=== PATIENT | female | born 1970 | race American Indian/Alaskan Native ===

== ENCOUNTER → 2020-04-27 08:35 | Outpatient (BNVA) | payer MEDICAID, SELFPAY | PROVIDERS: PCP Student in an Organized Health Care Education/Training Program; Referring Provider Student in an Organized Health Care Education/Training Program; Visit Provider Internal Medicine Gastroenterology | DX: K21.00 Gastro-esophageal reflux disease with esophagitis, without bleeding (principal); R13.14 Dysphagia, pharyngoesophageal phase; R14.0 Abdominal distension (gaseous); D64.9 Anemia, unspecified; Z79.899 Other long term (current) drug therapy; Z87.19 Personal history of other diseases of the digestive system | CPT/HCPCS: 99212 ==

== ENCOUNTER 2020-05-02 05:32 | Outpatient (REF) | payer MEDICAID, SELFPAY ==
--- NOTE | 2020-05-02 07:39 | FL_ITS ---
EXAMINATION: XR FLUOROSCOPY WITH IMAGES CLINICAL INFORMATION: Spondylosis without myelopathy or radiculopathy COMPARISON: 09/21/2019 TECHNIQUE: Fluoroscopy performed by Dr. Sukhi Soriano. Fluoroscopy time: 0.3 minutes DAP: 15 Gycm2 Images: 6 FINDINGS: Radiopaque needle with multiple injection sites on the right and left at the lower lumbar spine with extension of contrast seen. FL/FL guidance in treatment room IMPRESSION: Fluoroscopic guidance for bilateral lumbar spinal injection. Please refer to procedural report for further information.
== END 2020-05-02 05:33 | disposition home or self-care (01) ==
LOC: HO.RADIR 05:32
PROVIDERS: Visit Provider Anesthesiology
DX: M47.816 Spondylosis without myelopathy or radiculopathy, lumbar region (principal)
CPT/HCPCS: 64493; 64494; J3300; Q9967

== ENCOUNTER → 2020-06-05 14:06 | Outpatient (BNVA) | payer MEDICAID, SELFPAY | PROVIDERS: PCP Student in an Organized Health Care Education/Training Program; Referring Provider Student in an Organized Health Care Education/Training Program; Visit Provider Anesthesiology | DX: Z76.89 Persons encountering health services in other specified circumstances (principal) ==

== ENCOUNTER → 2020-06-28 16:17 | Outpatient (BNVA) | payer MEDICAID, SELFPAY | PROVIDERS: PCP Student in an Organized Health Care Education/Training Program; Visit Provider Anesthesiology | DX: M47.816 Spondylosis without myelopathy or radiculopathy, lumbar region (principal); M17.0 Bilateral primary osteoarthritis of knee | CPT/HCPCS: 99212 ==

== ENCOUNTER 2020-08-08 06:59 | Outpatient (REF) | payer MEDICAID, SELFPAY ==
--- NOTE | ~2020-08-08 | FL_ITS ---
EXAMINATION: XR FLUOROSCOPY WITH IMAGES CLINICAL INFORMATION: M47.816 - Spondylosis without myelopathy or radiculopathy COMPARISON: MR lumbar spine 10/18/2019 TECHNIQUE: Fluoroscopy performed by Nery Pepe NP. Fluoroscopy time: 0.8 minutes DAP: 6.27 Gycm2 Images: 6 FINDINGS: There are spinal needles overlying the outer aspects of the bilateral L3, L4, L5 neural foramen. There is contrast seen in the nerve sheaths. No vascular communication. FL/FL guidance in treatment room IMPRESSION: Fluoroscopy for pain management procedures.
== END 2020-08-08 07:00 | disposition home or self-care (01) ==
LOC: HO.RADIR 06:59
PROVIDERS: Visit Provider Anesthesiology
DX: M47.816 Spondylosis without myelopathy or radiculopathy, lumbar region (principal); M17.0 Bilateral primary osteoarthritis of knee
CPT/HCPCS: 64493; 64494; J3300; Q9967

== ENCOUNTER 2020-12-05 06:27 | Outpatient (REF) | payer MEDICAID, SELFPAY ==
--- NOTE | ~2020-12-05 | FL_ITS ---
EXAMINATION: XR FLUOROSCOPY WITH IMAGES CLINICAL INFORMATION: Spondylosis without myelopathy or radiculopathy. COMPARISON: Similar study 08/08/2020 TECHNIQUE: Fluoroscopy performed by Nery Pepe. Fluoroscopy time: 0.6 minutes DAP: 13.1 Gycm2 Images: 6 FINDINGS: There are bilateral needles positioned adjacent to the pedicles involving S1, L5 and L4 vertebrae with contrast opacifying the adjacent soft tissues. FL/FL guidance in treatment room IMPRESSION: Fluoroscopy guidance was provided by Nery Pepe during spinal procedure.
== END 2020-12-05 06:28 | disposition home or self-care (01) ==
LOC: HO.RADIR 06:27
PROVIDERS: Visit Provider Anesthesiology
DX: M47.816 Spondylosis without myelopathy or radiculopathy, lumbar region (principal); M17.10 Unilateral primary osteoarthritis, unspecified knee
CPT/HCPCS: 64493; 64494; 64495; J3300; Q9967

== ENCOUNTER → 2020-12-12 13:29 | Outpatient (BNVA) | payer MEDICAID, SELFPAY | PROVIDERS: PCP Student in an Organized Health Care Education/Training Program; Visit Provider Surgery Vascular Surgery | DX: I65.23 Occlusion and stenosis of bilateral carotid arteries (principal); R51.9 Headache, unspecified | CPT/HCPCS: 99202 ==

== ENCOUNTER 2020-12-21 12:14 | Outpatient (REF) | payer MEDICAID, SELFPAY ==
[2020-12-21 14:06] LABS: MANUAL DIFF FLAG NO
[2020-12-21 14:11] LABS: Basophils Percent Auto 0.3 % (0-2); Eosinophils Absolute Auto 0.2 X10*3/uL (0.0-0.4); Hematocrit 35.8 % (37-47); Hemoglobin 10.7 g/dl (12.0-16.0); Imm Gran Abs Auto 0.03 X10*3/uL (0.00-0.03); Imm Gran Pct Auto 0.3 % (0.0-0.4); Lymphocytes Absolute Auto 3.1 X10*3/uL (1.2-4.9); Mean Corpuscular HGB Conc 29.9 g/dl (31.0-35.0); Mean Corpuscular Hemoglobin 25.1 pg (27.0-33.0); Mean Platelet Volume 10.3 fL (9.4-12.3); Monocytes Absolute Auto 0.7 X10*3/uL (0.1-1.2); Monocytes Percent Auto 5.8 % (2-11); Neutrophils Absolute Auto 7.8 X10*3/uL (2.0-8.3); Neutrophils Percent Auto 65.6 % (45-73); Platelet Count 491 X10*3/uL (160-400); Red Blood Count 4.26 X10*6/uL (4.20-5.50); Red Cell Distribution Width 19.3 % (11.0-16.0); White Blood Count 11.8 X10*3/uL (4.8-10.8)
[2020-12-21 14:39] LABS: Alanine Aminotransferase 12 U/L (0-31); Albumin Level 4.3 g/dL (3.5-5.0); Alkaline Phosphatase 109 U/L (39-117); Anion Gap 14 (12-20); Aspartate Amino Transferase 13 U/L (5-31); Bilirubin Total 0.2 mg/dL (0.0-1.0); Blood Urea Nitrogen 29 mg/dL (9-16); C Reactive Protein 1.03 mg/dL (< or = 0.50); Carbon Dioxide 28 mmol/L (22-29); Chloride 104 mmol/L (96-108); Estimated Glomerular Filt Rate > 60; Glucose Random 131 mg/dL (60-115); Potassium 4.7 mmol/L (3.3-5.1); Sodium 141 mmol/L (135-145); Total Protein 7.5 g/dL (6.5-8.0)
[2020-12-21 14:57] LABS: Erythrocyte Sedimentation Rate 27 MM/HR (0-20)
[2020-12-21 16:09] LABS: Rheumatoid Factor < 15.0 IU/mL (<15.0)
[2020-12-22 08:27] LABS: HBS Num1 45.83 mIU/mL (0-7.99); HBsAGNum1 0.26 S/CO (0.00-0.99); Hepatitis A Antibody IgM 0.17 Index (0-0.79); Hepatitis B Surface Antigen Negative (Negative); ~HepC Num1 0.16 S/CO (0.00-0.79); ~Hepatitis A Antibody IgM Nonreactive (Nonreactive); ~Hepatitis B Surface Antibody REACTIVE (Nonreactive); ~Hepatitis C Antibody Nonreactive (Nonreactive)
[2020-12-22 09:07] LABS: HBc Num1 0.13 S/CO (0.00-0.79); Hepatitis B Core Antibody Nonreactive (Nonreactive)
[2020-12-23 14:42] LABS: Cardiolipin IgG Ab <2.0 GPL-U/mL; Cardiolipin IgM Ab <2.0 MPL-U/mL
[2020-12-23 17:32] LABS: Beta-2 Microglobulin, Serum 2.05 mg/L (< OR = 2.51)
[2020-12-24 16:22] LABS: TS Negative Control Passed; TS Panel A 1; TS Panel B 2; TS Positive Control Passed; TSpotTB Negative (SeeBelow)
[2020-12-24 21:57] LABS: Cyclic Citrullinated Peptide <16 UNITS
[2020-12-25 13:12] LABS: PTT (LAC) Screen 30 sec (< OR = 40)
== END 2020-12-21 12:15 | disposition home or self-care (01) ==
LOC: HO.LAB 12:14
PROVIDERS: PCP Student in an Organized Health Care Education/Training Program; Visit Provider Student in an Organized Health Care Education/Training Program
DX: Z01.84 Encounter for antibody response examination (principal); Z11.59 Encounter for screening for other viral diseases; I65.23 Occlusion and stenosis of bilateral carotid arteries; R51.9 Headache, unspecified
CPT/HCPCS: 36415; 80053; 82232; 85025; 85597; 85613; 85652; 85730; 86140; 86147; 86200; 86431; 86481; 86704; 86706; 86709; 86803; 87340; 99202

== ENCOUNTER 2021-01-01 10:15 | Outpatient (REF) | payer MEDICAID, SELFPAY ==
[2021-01-01 12:11] LABS: Blood Urea Nitrogen 34 mg/dL (9-16); Estimated Glomerular Filt Rate > 60; Rheumatoid Factor 19.9 IU/mL (<15.0)
[2021-01-01 12:37] LABS: Syphilis Screen Nonreactive (Nonreactive)
[2021-01-01 12:42] LABS: HIV AB/AG Nonreactive (Nonreactive); HIV Num 1 0.07 S/CO (0.00-0.99)
[2021-01-01 14:00] LABS: Erythrocyte Sedimentation Rate 20 MM/HR (0-20)
[2021-01-02 11:55] LABS: Lyme Abs Screen <0.90 index
[2021-01-02 20:41] LABS: Anti Nuclear Antibody Screen NEGATIVE (NEGATIVE)
[2021-01-04 20:01] LABS: IgA 210 mg/dL (47-310); IgG 1101 mg/dL (600-1640); IgM 126 mg/dL (50-300)
== END 2021-01-01 10:16 | disposition home or self-care (01) ==
LOC: HO.LAB 10:15
PROVIDERS: PCP Student in an Organized Health Care Education/Training Program; Visit Provider Psychiatry & Neurology Neurology
DX: G93.40 Encephalopathy, unspecified (principal)
CPT/HCPCS: 36415; 82565; 82784; 84520; 85652; 86038; 86039; 86334; 86431; 86617; 86618; 86780; 87389

== ENCOUNTER 2021-01-02 12:44 | Outpatient (REF) | payer MEDICAID, SELFPAY ==
--- NOTE | ~2021-01-02 | US_ITS ---
EXAMINATION: US EXTRACRANIAL CAROTID DUPLEX, BILATERAL CLINICAL INFORMATION: This is a 50-year-old female with carotid stenosis/occlusion of bilateral carotid arteries. COMPARISON: None TECHNIQUE: Real-time ultrasound and Doppler techniques (integrating B-mode 2-D vascular images, Doppler spectral analysis and color-flow Doppler imaging) were utilized to interrogate the extracranial carotid arteries, the vertebral arteries and proximal subclavian arteries bilaterally. The degree of stenosis is determined by criteria similar to NASCET. FINDINGS: Right Side: 1. There is no atherosclerotic plaque seen in the bifurcation/proximal ICA region. 2. The common carotid artery PSV proximally is 91 cm/s and distally 84 cm/s. 3. The proximal internal carotid artery velocities are 67 cm/s systolic and 14 cm/s diastolic. 4. The proximal external carotid artery PSV is 79 cm/s. 5. The vertebral artery shows antegrade flow. 6. The subclavian artery waveforms are normal. Left Side: 1. There is no atherosclerotic plaque seen in the bifurcation/proximal ICA region. 2. The common carotid artery PSV proximally is 103 cm/s and distally 82 cm/s. 3. The proximal internal carotid artery velocities are 75 cm/s systolic and 23 cm/s diastolic. 4. The proximal external carotid artery PSV is 109 cm/s. 5. The vertebral artery shows antegrade flow. 6. The subclavian artery waveforms are normal. US/US carotid duplex BI IMPRESSION: 1. RIGHT: Normal right internal carotid artery without atherosclerotic plaque or hemodynamically significant stenosis. 2. LEFT: Normal left internal carotid artery without atherosclerotic plaque or hemodynamically significant stenosis. 3. An arrhythmia was demonstrated during the Doppler portion of the examination. This would be best evaluated with an EKG.
== END 2021-01-02 12:45 | disposition home or self-care (01) ==
LOC: HO.US 12:44
PROVIDERS: PCP Student in an Organized Health Care Education/Training Program; Visit Provider Surgery Vascular Surgery
DX: I63.233 Cerebral infarction due to unspecified occlusion or stenosis of bilateral carotid arteries (principal)
CPT/HCPCS: 70450; 93880; 96372; 96374; 96375; 99283; 99284; J2060; J2270; J3030

== ENCOUNTER 2021-01-02 21:47 | Emergency (ER) | payer MEDICAID, SELFPAY ==
--- NOTE | ~2021-01-02 | CT_ITS ---
EXAMINATION: CT HEAD WITHOUT CONTRAST CLINICAL INFORMATION: Headaches. On Eliquis COMPARISON: CT head March 13, 2011 TECHNIQUE: Contiguous axial imaging was performed from the skull base to vertex without intravenous administration of contrast. Coronal and sagittal reformatted images are performed at the CT scanner This CT examination was performed using dose optimization techniques as appropriate, variously including the following: *Automated exposure control *Adjustment of mA and/or kV according to patient size (this includes techniques or standardized protocols for targeted exams where dose is matched to indication/reason for exam; i.e. extremities or head) *Use of iterative reconstruction technique DLP: 955 mGy-cm FINDINGS: There is no evidence of acute intracranial hemorrhage or territorial infarction. No abnormal mass effect or midline shift is seen. Yarbrough to white matter differentiation is well preserved. No extra-axial fluid collections are identified. The ventricles are normal in size. There is no abnormal attenuation within the brain parenchyma. The osseous structures and soft tissues are normal. The mastoid air cells and visualized portions of the paranasal sinuses are well aerated. CT/CT head/brain wo con IMPRESSION: No acute intracranial pathology.
[2021-01-02 21:59] VITALS: BP 146/86; PULSE 70; O2SAT 99
--- NOTE | 2021-01-02 22:01 | ED.HA ---
HPI - Headache General Chief Complaint: Headache Stated Complaint: STROKE ALERT Time Seen by Provider: 01/02/21 21:49 Source: patient Mode of arrival: EMS History of Present Illness HPI Narrative: Patient with chronic headache since October 2019 after COVID infection on Eliquis for? PE complaining of headache getting worse with light sensitivity no nausea no vomiting no diarrhea no focal deficits no head injury Related Data Home Medications Medication Instructions Recorded Confirmed albuterol sulfate 90 mcg/actuation 2 puff INHALATION Q6H PRN 04/27/20 12/21/20 aerosol inhaler cetirizine 10 mg tablet 10 mg PO DAILY 04/27/20 12/21/20 docusate sodium 100 mg capsule 100 mg PO DAILY 04/27/20 12/21/20 duloxetine 30 mg capsule,delayed 30 mg PO DAILY 04/27/20 12/21/20 release esomeprazole magnesium 40 mg 40 mg PO DAILY 04/27/20 12/21/20 capsule,delayed release metoprolol tartrate 50 mg tablet 50 mg PO DAILY 04/27/20 12/21/20 montelukast 10 mg tablet 10 mg PO DAILY 04/27/20 12/21/20 topiramate 25 mg tablet 25 mg PO DAILY 04/27/20 12/21/20 clonidine HCl 0.1 mg tablet 0.1 mg PO BID 06/05/20 12/21/20 apixaban 5 mg tablet 5 mg PO BID 06/28/20 12/21/20 atorvastatin 40 mg tablet 40 mg PO BEDTIME 06/28/20 12/21/20 losartan 100 mg tablet 100 mg PO DAILY 06/28/20 12/21/20 Previous Rx's Medication Instructions Recorded alrsjplpzc-efxjxgwnfuwyj-hecy 1 cap PO Q6H PRN #20 cap 01/03/21 [Fioricet] Allergies Allergy/AdvReac Type Severity Reaction Status Date / Time aspirin AdvReac Mild bleeding Verified 12/21/20 12:25 Review of Systems Review of Systems: Yes all other systems are reviewed and are negative PMFSH Past Medical History Medical History Bleeding disorder History of gastric ulcer Lab test positive for detection of COVID-19 virus (~11/2019) Left inguinal hernia (~2013) Osteoarthritis of knees, bilateral Surgical History H/O umbilical hernia repair (07/25/06) Hx of endoscopy S/P partial hysterectomy (11/10/18) Family History Family History Father Hx of diabetes insipidus Mother No problems noted. Social History Social History Alcohol intake: never Patient Tobacco Use Status: Never used Tobacco e-Cigarette/Vaping Use: Never Used Advance Directives: No Patient : No Physical Exam Vital Signs: Vital Signs: Last Vital Signs Temp 98.5 F 01/02/21 22:10 Pulse 66 01/02/21 22:10 Resp 22 H 01/02/21 22:10 BP 196/98 H 01/02/21 22:54 Pulse Ox 97 01/02/21 22:10 Body Mass Index 45.8 Const: Other: Photosensitive General: well developed and anxious Orientation/consciousness: patient oriented x3 HENMT: Head: Yes normocephalic Ears: hearing grossly normal bilaterally Eyes: General: appearance normal, both eyes and all related structures Neck: Neck: Yes normal visual inspection, Yes no lymphadenopathy, Yes no meningeal signs and No tender Resp: Effort & Inspection: normal respiratory effort Auscultation: clear to auscultation bilaterally Cardio: Palpation: normal PMI Rate: regular rate Rhythm: regular rhythm Heart sounds: S1 normal heart sound present and S2 normal heart sound present Peripheral pulses: Peripheral pulses 2+ throughout GI: Inspection: Yes normal to inspection Palpation (GI): Soft to palpation and nontender Auscultation: normal bowel sounds Neuro: General: patient oriented x3, tone normal, moves all extremities, Normal light touch and pain sensation, no meningeal signs, no focal motor deficits and CN's II-XI intact bilaterally Extrem: General: Yes normal to inspection and Yes full ROM MDM - Headache MDM Narrative Medical decision making narrative: Patient with chronic headache been followed with automation qa analyst, PCP, neurologist poor response to Imitrex will give her prescription for Fioricet advised to follow-up with neurologist patient's CT scan is negative for any acute bleed Discharge Plan Discharge Clinical Impression: Headache Qualifiers: Headache type: cluster Headache chronicity pattern: chronic headache Intractability: intractable Qualified Code(s): G44.021 - Chronic cluster headache, intractable Patient Disposition: Home, Self-Care Instructions: Acute Headache (ED) Additional Instructions: Take pain medication as prescribed and follow with neurologistt Prescriptions: New wobwlbuygr-zahkwwtrydxli-xjsj [Fioricet] 50-300-40 mg capsule 1 cap PO Q6H PRN (Reason: pain) Qty: 20 RF: 0 No Action clonidine HCl 0.1 mg tablet 0.1 mg PO BID RF: 0 topiramate [Topamax] 25 mg tablet 25 mg PO DAILY RF: 0 albuterol sulfate [ProAir HFA] 90 mcg/actuation HFA aerosol inhaler 2 puff inhalation Q6H PRNRF: 0 cetirizine 10 mg tablet 10 mg PO DAILY RF: 0 docusate sodium [DOK] 100 mg capsule 100 mg PO DAILY RF: 0 duloxetine 30 mg capsule,delayed release(DR/EC) 30 mg PO DAILY RF: 0 montelukast 10 mg tablet 10 mg PO DAILY RF: 0 esomeprazole magnesium 40 mg capsule,delayed release(DR/EC) 40 mg PO DAILY RF: 0 metoprolol tartrate 50 mg tablet 50 mg PO DAILY RF: 0 atorvastatin 40 mg tablet 40 mg PO BEDTIME RF: 0 Eliquis 5 mg tablet 5 mg PO BID RF: 0 losartan 100 mg tablet 100 mg PO DAILY RF: 0
[2021-01-02 22:10] VITALS: BP 198/86; PULSE 66; RESP 22; TEMP 36.9; O2SAT 97; BMI 45.8
[2021-01-02 22:54] VITALS: BP 196/98
[2021-01-03] MEDS: LORazepam 2 MG/ML VIAL IM (00:10)
[2021-01-03] MEDS: Morphine Sulfate 10 MG/ML CARTRIDGE IM (02:06)
== END 2021-01-03 05:06 | disposition home or self-care (01) ==
PROVIDERS: Emergency Provider Internal Medicine; PCP Student in an Organized Health Care Education/Training Program
DX: G44.021 Chronic cluster headache, intractable (principal); Z79.01 Long term (current) use of anticoagulants; Z79.899 Other long term (current) drug therapy
CPT/HCPCS: 70450; 96372; 96374; 96375; 99283; 99284; J2060; J2270; J3030

== ENCOUNTER 2021-01-08 13:47 | Outpatient (REF) | payer MEDICAID, SELFPAY ==
--- NOTE | ~2021-01-08 | MR_ITS ---
EXAMINATION: MR BRAIN WITHOUT AND WITH CONTRAST CLINICAL INFORMATION: Encephalopathy. White matter changes. Headaches. COMPARISON: CT head 01/02/2021. TECHNIQUE: Multiplanar, multisequence MRI of the brain was obtained before and after the intravenous administration of 10 mL Gadavist. FINDINGS: Mild, central T2 hyperintensity is present within the ventral naila. Findings are visualized to best advantage on axial T2 FSE images. A minimal number of supratentorial scattered juxtacortical and periventricular white matter punctate T2 hyperintensities are identified and are of uncertain clinical significance as similar findings are frequently encountered asymptomatic finding. No intracranial hemorrhage, tumors or acute infarcts are visualized. Mild diffuse commensurate prominence of the ventricles and sulci is noted. Susceptibility weighted images reveal no evidence of acute or chronic hemorrhage within the brain parenchyma. Normal flow-related signal intensity is visualized in the major intracranial vessels and dural sinuses. Orbits and globes are normal in appearance. The craniocervical junction and cerebellar tonsils are normal in configuration. No suspicious marrow abnormalities are noted. Mild mucosal thickening and/or mucosal retention cysts are noted within the left maxillary sinus. No mastoid effusions are identified. MR/MR head/brain wo/w con IMPRESSION: 1. Borderline signal abnormality within the central naila. In the correct clinical setting, findings could represent osmotic demyelination syndrome which may occur in the setting of rapid correction of hyponatremia. Alternatively, findings could represent mild chronic small vessel ischemic changes. This result was discussed with Kristy Allred M.D. by telephone at 01/11/2021 2:29 PM and it was ascertained that the content and urgency of the report was understood at the time of direct communication.
== END 2021-01-08 13:48 | disposition home or self-care (01) ==
LOC: HO.MRI 13:47
PROVIDERS: PCP Student in an Organized Health Care Education/Training Program; Visit Provider Psychiatry & Neurology Neurology
DX: G93.40 Encephalopathy, unspecified (principal); G93.49 Other encephalopathy
CPT/HCPCS: 70553; A9585

== ENCOUNTER → 2021-01-11 12:40 | Outpatient (BNVA) | payer MEDICAID, SELFPAY | PROVIDERS: PCP Student in an Organized Health Care Education/Training Program; Visit Provider Surgery Vascular Surgery | DX: R51.9 Headache, unspecified (principal) | CPT/HCPCS: 99212 ==

== ENCOUNTER 2021-01-17 09:26 | Outpatient (REF) | payer MEDICAID, SELFPAY ==
--- NOTE | ~2021-01-17 | US_ITS ---
EXAMINATION: US SOFT TISSUE NECK CLINICAL INFORMATION: Headache COMPARISON: None TECHNIQUE: Doppler, color and linder-scale imaging of the bilateral temporal arteries including waveform spectral analysis. FINDINGS: There are increased peak systolic velocities in the right temporal artery. The proximal common temporal artery peak systolic velocity and end-diastolic velocity measure 108 and 18 cm/s, mid 133 cm/s and 41 cm/s and distal 117 and 25 cm/s. The parietal branch of the temporal artery and end-diastolic velocities measure 117 and 29 cm/s. The frontal branch is not visualized. No halo sign is seen. The left common temporal artery peak systolic and end-diastolic velocities measure 29 and 43 cm/s proximally, 94 and 21 cm/s in the mid portion and 58 and 15 cm/s distally. Parietal branch systolic and end-diastolic velocities measure 86 and 18 cm/s and frontal branch measures 70 and 13 cm/s. No halo sign is seen. US/US soft tiss head and/or neck IMPRESSION: No halo sign is seen. This is an abnormal exam with increased peak systolic and end-diastolic velocities of the right temporal artery compared to the left.
== END 2021-01-17 09:27 | disposition home or self-care (01) ==
LOC: HO.US 09:26
PROVIDERS: PCP Student in an Organized Health Care Education/Training Program; Visit Provider Student in an Organized Health Care Education/Training Program
DX: I65.23 Occlusion and stenosis of bilateral carotid arteries (principal); M17.0 Bilateral primary osteoarthritis of knee; M47.816 Spondylosis without myelopathy or radiculopathy, lumbar region
CPT/HCPCS: 76536; 99212

== ENCOUNTER 2021-01-24 08:01 | Day surgery (SDC) | payer MEDICAID, SELFPAY ==
[2021-01-24] VITALS (7 sets, daily range): BP systolic 129–150; BP diastolic 69–90; PULSE 68–82; RESP 16–18; TEMP 36.6–37.1; O2SAT 97–99; BMI 45.4
--- NOTE | ~2021-01-24 | FL_ITS ---
EXAMINATION: XR LUMBAR PUNCTURE CLINICAL INFORMATION: Encephalopathy. COMPARISON: None, TECHNIQUE: Following explaining fluoroscopy-guided lumbar puncture procedure, benefits and risks, a written consent was obtained. Patient was placed prone on fluoroscopy table and low back area was cleaned and draped in the usual sterile manner. 1% lidocaine was injected at puncture site. A 20-gauge 6-inch needle was then advanced from the skin in the left paramidline location intrathecally at the L4-L5 disc level. Blood-tinged CSF was collected in 2 test tubes. The CSF flow was very slow. Only 4 mL of fluid could be collected. No CSF pressure was obtained due to slow flow. FINDINGS: L4-L5 lumbar puncture performed with fluoroscopy with no opening CSF pressure obtained due to slow flow. Approximately 4 mL of pinkish CSF fluid collected and sent to lab. FLUOROSCOPY TIME: 2.9 minutes. DOSE AREA PRODUCT: 43 x 0.105 uGy-m2 (microgray-meter squared). FL/FL guided lumbar puncture LP IMPRESSION: Difficult but successful fluoroscopy-guided lumbar puncture performed without immediate complications.
[2021-01-24 08:52] LABS: MANUAL DIFF FLAG NO
[2021-01-24 08:56] LABS: Basophils Percent Auto 0.2 % (0-2); Eosinophils Absolute Auto 0.1 X10*3/uL (0.0-0.4); Eosinophils Percent Auto 0.7 % (0-4); Hematocrit 36.4 % (37-47); Imm Gran Abs Auto 0.04 X10*3/uL (0.00-0.03); Imm Gran Pct Auto 0.3 % (0.0-0.4); Lymphocytes Absolute Auto 3.2 X10*3/uL (1.2-4.9); Lymphocytes Percent Auto 27.7 % (20-40); Mean Corpuscular HGB Conc 30.2 g/dl (31.0-35.0); Mean Corpuscular Hemoglobin 25.8 pg (27.0-33.0); Mean Corpuscular Volume 85.2 fL (80-98); Monocytes Absolute Auto 0.8 X10*3/uL (0.1-1.2); Monocytes Percent Auto 7.1 % (2-11); Neutrophils Absolute Auto 7.4 X10*3/uL (2.0-8.3); Platelet Count 370 X10*3/uL (160-400); Red Blood Count 4.27 X10*6/uL (4.20-5.50); Red Cell Distribution Width 18.6 % (11.0-16.0); White Blood Count 11.6 X10*3/uL (4.8-10.8)
[2021-01-24 09:03] LABS: INTERNATIONAL NORM RATIO 1.1 (0.9-1.1); Prothrombin Time 12.3 SEC (9.9-13.0)
[2021-01-24 09:05] LABS: Partial Thromboplastin Time 30.5 SEC (24.1-38.0)
[2021-01-24 13:48] LABS: CSF Appearance Bloody; CSF Tube # 1
[2021-01-24 14:11] LABS: Oligoclonal Serum Yes
[2021-01-24 14:11] LABS: Glucose CSF 73 mg/dL
[2021-01-24 14:15] LABS: Appearance CSF BLOODY
[2021-01-24 14:16] LABS: CSF Tube # 2; Color CSF RED
[2021-01-24 14:17] LABS: Lymphocytes CSF 10 %; Neutrophils CSF 90 %; Red Blood Cell CSF 97000 MM*3; White Blood Cell CSF 100 MM*3
[2021-01-24 14:35] LABS: Total Protein CSF 389.8 mg/dL (15-45)
[2021-01-24] MEDS: Acetaminophen 325 MG TABLET 650 MG PO (15:07)
[2021-01-24] MEDS: oxyCODONE HCl Immed Release 5 MG TABLET PO (15:07)
[2021-01-27 09:26] LABS: Albumin 3.6 g/dL (3.5-5.2); IgG 1040 mg/dL (600-1640); IgG Synthesis Rate 125.6 mg/24 h (-9.9-3.3); IgG, CSF 54.2 mg/dL (0.8-7.7)
== END 2021-01-24 15:26 | disposition home or self-care (01) ==
PROVIDERS: Psychiatry & Neurology Neurology; PCP Student in an Organized Health Care Education/Training Program; Visit Provider Radiology Diagnostic Radiology
PROC: 009U3ZZ Drainage of Spinal Canal, Percutaneous Approach (ICD-10-PCS; CPT 62270; principal; 2021-01-24 11:00)
DX: G93.40 Encephalopathy, unspecified (principal); G43.909 Migraine, unspecified, not intractable, without status migrainosus; E66.9 Obesity, unspecified; F41.9 Anxiety disorder, unspecified; R20.0 Anesthesia of skin
CPT/HCPCS: 36415; 62328; 82042; 82945; 83916; 84157; 85025; 85610; 85730; 87015; 87070; 87205; 89051

== ENCOUNTER 2021-01-31 20:24 | Emergency (ER) | payer MEDICAID, SELFPAY ==
--- NOTE | ~2021-01-31 | XR_ITS ---
EXAMINATION: XR CHEST CLINICAL INFORMATION: Fever. Chest and back pain. COMPARISON: 11/15/2016 TECHNIQUE: 2 views of the chest were obtained. FINDINGS: The lungs are well expanded. There is no focal consolidation, edema, or effusion. No pneumothorax. The cardiomediastinal silhouette is within normal limits. No acute osseous abnormality. XR/XR chest 2V IMPRESSION: Clear lungs.
[2021-01-31 20:27] VITALS: BP 154/100; PULSE 73; RESP 18; TEMP 37; O2SAT 97; BMI 45.8
[2021-02-01 00:55] VITALS: BP 151/83; PULSE 71; RESP 16; TEMP 36.8; O2SAT 97
--- NOTE | 2021-02-01 01:12 | ED.GENADULT ---
HPI - General Adult General Chief complaint: General Medical Stated complaint: headache, back pain Time Seen by Provider: 02/01/21 01:12 Source: patient Mode of arrival: ambulatory Limitations: no limitations History of Present Illness HPI narrative: 50-year-old female who presents emergency department for evaluation of headache back pain and fever. The patient states that she has a constant, sharp, 10/10 headache which she has had for 6 months. The patient is being worked up by the neurologist, Dr. Allred and she had a lumbar puncture done on 01/24/2021. The patient states that she also has chronic back pain and is in pain management. She states that she has a constant, sharp pain in her lower back which is 10/10. She states that since the lumbar puncture, the pain is gotten significantly worse in her lower back but the headache pain is not changed. She states that she is having difficulty walking and bending secondary to her lower back pain. Patient states that today she had a fever of 101.2? F. The patient has had no other symptoms. She denied chest pain, shortness of breath, cough, vomiting, abdominal pain, frequency, urgency or dysuria. 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 She has also been vaccinated for COVID-19. The patient has been taking Tylenol for her pain without any relief of her symptoms. Related Data Home Medications Medication Instructions Recorded Confirmed albuterol sulfate 90 mcg/actuation 2 puff INHALATION Q6H PRN 04/27/20 12/21/20 aerosol inhaler (ProAir HFA) cetirizine 10 mg tablet 10 mg PO DAILY 04/27/20 12/21/20 docusate sodium 100 mg capsule 100 mg PO DAILY 04/27/20 12/21/20 (DOK) duloxetine 30 mg capsule,delayed 30 mg PO DAILY 04/27/20 12/21/20 release esomeprazole magnesium 40 mg 40 mg PO DAILY 04/27/20 12/21/20 capsule,delayed release metoprolol tartrate 50 mg tablet 50 mg PO DAILY 04/27/20 12/21/20 montelukast 10 mg tablet 10 mg PO DAILY 04/27/20 12/21/20 clonidine HCl 0.1 mg tablet 0.1 mg PO BID 06/05/20 12/21/20 apixaban 5 mg tablet (Eliquis) 5 mg PO BID 06/28/20 12/21/20 atorvastatin 40 mg tablet 40 mg PO BEDTIME 06/28/20 12/21/20 losartan 100 mg tablet 100 mg PO DAILY 06/28/20 12/21/20 topiramate 25 mg tablet (Topamax) 50 mg PO DAILY tab 01/11/21 topiramate 50 mg tablet (Topamax) 50 mg PO BID 01/17/21 Previous Rx's Medication Instructions Recorded jsslmcrhyx-hdlnmfyxhbzsj-zsmfhbzn 1 cap PO Q6H PRN #20 cap 01/03/21 50 mg-300 mg-40 mg capsule (Fioricet) cyclobenzaprine 10 mg tablet 10 mg PO TID PRN #15 tab 02/01/21 morphine 15 mg immediate release 15 mg PO Q4-6H PRN #10 tab 02/01/21 tablet Allergies Allergy/AdvReac Type Severity Reaction Status Date / Time aspirin AdvReac Mild bleeding Verified 01/31/21 20:26 Review of Systems Review of Systems: Yes all other systems are reviewed and are negative [facility] Past Medical History [facility] Narrative: Social history: 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 She denies tobacco, alcohol and drug use. Medical History Bleeding disorder COVID-19 Gout High cholesterol History of gastric ulcer Hypertension Lab test positive for detection of COVID-19 virus (~11/2019) Left inguinal hernia (~2013) Osteoarthritis of knees, bilateral Surgical History H/O umbilical hernia repair (07/25/06) Hx of endoscopy S/P partial hysterectomy (11/10/18) Family History Family History Father Hx of diabetes insipidus Mother No problems noted. Social History Social History Alcohol intake: never Patient Tobacco Use Status: Never used Tobacco e-Cigarette/Vaping Use: Never Used Advance Directives: No Advance Directives Information Provided: Yes Patient : No Physical Exam Vital Signs: Vital Signs: Last Vital Signs Temp 98.3 F 02/01/21 02:13 Pulse 73 02/01/21 02:13 Resp 20 02/01/21 02:13 BP 185/95 H 02/01/21 02:13 Pulse Ox 99 02/01/21 02:13 Body Mass Index 45.8 Const: General: cooperative and no acute distress Nutritional Appearance: obese Orientation/consciousness: oriented to person and oriented to place Limitations: no limitations HENMT: Head: Yes normal to inspection, Yes normocephalic, Yes atraumatic and Yes other (No tenderness with palpation over the left side of the patient's head) Ears: external ears normal General nose exam: Normal external nose present Face and sinus: Yes normal facial exam Mouth: Normal oral and palatal mucosa present Throat: Yes posterior oropharynx normal Eyes: General: appearance normal, both eyes and all related structures Pupils: Equal, round and reactive pupils present Neck: Neck: Yes normal visual inspection, Yes no lymphadenopathy, Yes trachea midline and Yes supple Chest: Chest palpation & inspection: normal inspection of the chest and normal palpation of entire chest wall Resp: Effort & Inspection: normal respiratory effort and able to speak in complete sentences Auscultation: clear to auscultation bilaterally Cardio: Rate: regular rate Rhythm: regular rhythm Heart sounds: S1 normal heart sound present, S2 normal heart sound present and no murmurs GI: Inspection: Yes normal to inspection Palpation (GI): Soft to palpation, nontender and no guarding Auscultation: normal bowel sounds Back/Spine/Pelvis: Other: The patient has pain with palpation of her lumbar and sacral paraspinal muscles and over the lumbar cervical vertebrae, there is no rashes, lesions or abscess palpated in the area where she had her lumbar puncture. There is no erythema or increased warmth over the skin of her lumbar sacral back. Skin: General skin exam: no rashes or lesions noted Neuro: General: oriented to person and oriented to place Cranial nerves: Yes CN's II-XII intact bilaterally and Yes Equal, round and reactive pupils present Cognition (Neuro): normal cognition Motor exam (neuro): 5/5 motor strength present throughout Extrem: General: Yes normal to inspection Psych: Appearance: grossly normal Speech and movement: Normal speech and movement present Affect: normal affect Attitude: cooperative Thought process: Normal thought process present Thought content: Normal thought content present Course Course Course Narrative: 50-year-old female with a history of chronic headaches x6 months and chronic back pain who presents emergency department for evaluation of worsening lower back pain after lumbar puncture on 01/24/2021. She also has reported fever of 101.2 ? F at home. Here in the emergency department her vital signs are normal and she has no fever. The patient's back exam did reveal tenderness palpation over the lumbar and cervical vertebrae diffusely as well as over the lumbar sacral paraspinal muscles with a normal neurologic exam. At this time I do not think that the patient's increased back pain is related to the lumbar puncture. I did order a CBC, CMP, lactic acid, blood cultures, urinalysis and chest x-ray on the patient. She also be tested for COVID-19. She was ordered to get normal saline IV x1 L, morphine 4 mg IV for her back pain and Reglan 10 mg IV with Benadryl 50 mg IV for headache. 0433: The patient's laboratory evaluation did [place] [address] and a slightly elevated bicarb of 30 otherwise was unremarkable. Urinalysis was negative. Chest x-ray revealed clear lungs. COVID-19 was negative. I do not have a clear source for the patient's fever but I do not think that is related to her spinal tap. The patient did not get much relief from the above treatment. The patient was given Flexeril 10 mg orally. The patient will be discharged home with a prescription for Flexeril 10 mg 3 times a day as needed for pain and spasm, she was advised to take Tylenol 1000 mg every 4-6 hours as needed for pain and she was given a prescription for morphine 15 mg every 4 hours as needed for pain. She was discharged home. The patient was given verbal and printed instructions prior to discharge. The patient was advised to follow-up with his PCP in 2 days and to return to the emergency department if his symptoms get worse or if he develops any new symptoms that are concerning to him. The patient was given verbal and printed instructions prior to discharge. The patient was advised to follow-up with her PCP in 2 days and to return to the emergency department if her symptoms get worse or if she develops any new symptoms that are concerning to her. Medical Decision Making Lab Data Result diagrams: 02/01/21 02:02 02/01/21 02:02 Labs: Lab Results 02/01/21 02/01/21 02/01/21 Range/Units 02:02 02:02 02:02 WBC 11.8 H (4.8-10.8) X10*3/uL RBC 4.51 (4.20-5.50) X10*6/uL Hgb 12.0 (12.0-16.0) g/dl Hct 38.4 (37-47) % MCV 85.1 (80-98) fL MCH 26.6 L (27.0-33.0) pg MCHC 31.3 (31.0-35.0) g/dl RDW 16.9 H (11.0-16.0) % Plt Count 427 H (160-400) X10*3/uL MPV 9.6 (9.4-12.3) fL Immature Gran % (Auto) 0.3 (0.0-0.4) % Neut % (Auto) 68.5 (45-73) % Lymph % (Auto) 22.1 (20-40) % [place] % (Auto) 7.5 (2-11) % Eos % (Auto) 1.3 (0-4) % Baso % (Auto) 0.3 (0-2) % Lymph # (Auto) 2.6 (1.2-4.9) X10*3/uL [place] # (Auto) 0.9 (0.1-1.2) X10*3/uL Eos # (Auto) 0.2 (0.0-0.4) X10*3/uL Baso # (Auto) 0.0 (0.0-0.2) X10*3/uL Abs Immat Gran (auto) 0.03 (0.00-0.03) X10*3/uL Absolute Neuts (auto) 8.1 (2.0-8.3) X10*3/uL Absolute Nucleated RBC 0.000 (0.0-0.012) X10*3/uL Nucleated RBC % (auto) 0.0 (0.0-0.2) /100WBC Sodium 138 (135-145) mmol/L Potassium 4.2 (3.3-5.1) mmol/L Chloride 101 (96-108) mmol/L Carbon Dioxide 30 H (22-29) mmol/L Anion Gap 11 L (12-20) BUN 19 H (9-16) mg/dL Creatinine 0.83 (0.5-1.4) mg/dL Estim Creat Clear Calc 125.5 Estimated GFR > 60 Random Glucose 91 (60-115) mg/dL Lactic Acid (0.5-2.0) mmol/L Calcium 9.2 D (8.4-10.2) mg/dL Total Bilirubin 0.3 (0.0-1.0) mg/dL AST 18 (5-31) U/L ALT 23 (0-31) U/L Alkaline Phosphatase 103 (39-117) U/L Total Protein 7.5 (6.5-8.0) g/dL Albumin 4.4 (3.5-5.0) g/dL Urine Color Urine Appearance Urine pH (5.0-8.0) Ur Specific [place] (1.005-1.025) Urine Protein (NEG-TRACE) MG/DL Urine Glucose (UA) (NEG) MG/DL Urine Ketones (NEG) MG/DL Urine Blood (NEG) Urine Nitrite (NEG) Ur Leukocyte Esterase (NEG) COVID-19 (TALIB) Negative (Negative) COVID-19 Clin Com See Note 02/01/21 02/01/21 Range/Units 02:02 02:18 WBC (4.8-10.8) X10*3/uL RBC (4.20-5.50) X10*6/uL Hgb (12.0-16.0) g/dl Hct (37-47) % MCV (80-98) fL MCH (27.0-33.0) pg MCHC (31.0-35.0) g/dl RDW (11.0-16.0) % Plt Count (160-400) X10*3/uL MPV (9.4-12.3) fL Immature Gran % (Auto) (0.0-0.4) % Neut % (Auto) (45-73) % Lymph % (Auto) (20-40) % [place] % (Auto) (2-11) % Eos % (Auto) (0-4) % Baso % (Auto) (0-2) % Lymph # (Auto) (1.2-4.9) X10*3/uL [place] # (Auto) (0.1-1.2) X10*3/uL Eos # (Auto) (0.0-0.4) X10*3/uL Baso # (Auto) (0.0-0.2) X10*3/uL Abs Immat Gran (auto) (0.00-0.03) X10*3/uL Absolute Neuts (auto) (2.0-8.3) X10*3/uL Absolute Nucleated RBC (0.0-0.012) X10*3/uL Nucleated RBC % (auto) (0.0-0.2) /100WBC Sodium (135-145) mmol/L Potassium (3.3-5.1) mmol/L Chloride (96-108) mmol/L Carbon Dioxide (22-29) mmol/L Anion Gap (12-20) BUN (9-16) mg/dL Creatinine (0.5-1.4) mg/dL Estim Creat Clear Calc Estimated GFR Random Glucose (60-115) mg/dL Lactic Acid 1.2 (0.5-2.0) mmol/L Calcium (8.4-10.2) mg/dL Total Bilirubin (0.0-1.0) mg/dL AST (5-31) U/L ALT (0-31) U/L Alkaline Phosphatase (39-117) U/L Total Protein (6.5-8.0) g/dL Albumin (3.5-5.0) g/dL Urine Color YELLOW Urine Appearance CLEAR Urine pH 7.0 (5.0-8.0) Ur Specific [place] 1.020 (1.005-1.025) Urine Protein NEG (NEG-TRACE) MG/DL Urine Glucose (UA) NEG (NEG) MG/DL Urine Ketones NEG (NEG) MG/DL Urine Blood NEG (NEG) Urine Nitrite NEG (NEG) Ur Leukocyte Esterase NEG (NEG) COVID-19 (TALIB) (Negative) COVID-19 Clin Com Discharge Plan Discharge Clinical Impression: Headache, Back pain Patient Disposition: Home, Self-Care Instructions: Back Pain (ED), Acute Headache (ED) Additional Instructions: Back Pain Discharge Instructions: Take Tylenol (acetaminophen) 500 mg pills, 2 pills every 6 hours as needed for pain. Take Flexeril (cyclobenzaprine) 10 mg pills, 1 pill every 8 hours as needed for pain or muscle spasm. This is a prescription medication. This medication will make you sleepy, therefore do not drive or work while taking this medication. For pain not relieved by Flexeril or Tylenol, take morphine 15 mg pills, 1 pill every 4-6 hours as needed for pain. This is a narcotic medication and can be addicting. If you are concerned about addiction, do not get the prescription filled or you can ask the pharmacist for less pills than prescribed. This medication will make you sleepy, do not drive or work while taking this medication. Apply ice for 15 minutes to the area that hurts on your back, then apply a heating a pad on low for 15 minutes. Do this 4-6 times a day to help reduce the pain in your back. Continue with normal activities as tolerated since staying in bed and not moving around will make your pain worse. You can also try over the counter lidocaine patches as directed on the box to help with the pain. Please return to the Emergency Department or see your doctor immediately if your symptoms get worse or if you develop any new symptoms that are concerning you. Follow up with your doctor in 2 day. Please read the other printed discharge instructions on back pain. Prescriptions: New cyclobenzaprine 10 mg tablet 10 mg PO TID PRN (Reason: pain, muscle spasm) Qty: 15 RF: 0 morphine 15 mg tablet 15 mg PO Q4-6H PRN (Reason: pain) Qty: 10 RF: 0 No Action vyppawcrsx-nzdogsqedlyfh-dhrc [Fioricet] 50-300-40 mg capsule 1 cap PO Q6H PRN (Reason: pain) Qty: 20 RF: 0 clonidine HCl 0.1 mg tablet 0.1 mg PO BID RF: 0 albuterol sulfate [ProAir HFA] 90 mcg/actuation HFA aerosol inhaler 2 puff inhalation Q6H PRNRF: 0 cetirizine 10 mg tablet 10 mg PO DAILY RF: 0 docusate sodium [DOK] 100 mg capsule 100 mg PO DAILY RF: 0 duloxetine 30 mg capsule,delayed release(DR/EC) 30 mg PO DAILY RF: 0 montelukast 10 mg tablet 10 mg PO DAILY RF: 0 esomeprazole magnesium 40 mg capsule,delayed release(DR/EC) 40 mg PO DAILY RF: 0 metoprolol tartrate 50 mg tablet 50 mg PO DAILY RF: 0 atorvastatin 40 mg tablet 40 mg PO BEDTIME RF: 0 Eliquis 5 mg tablet 5 mg PO BID RF: 0 losartan 100 mg tablet 100 mg PO DAILY RF: 0
[2021-02-01 02:08] LABS: MANUAL DIFF FLAG NO
[2021-02-01 02:09] LABS: Basophils Percent Auto 0.3 % (0-2); Eosinophils Absolute Auto 0.2 X10*3/uL (0.0-0.4); Eosinophils Percent Auto 1.3 % (0-4); Hematocrit 38.4 % (37-47); Imm Gran Abs Auto 0.03 X10*3/uL (0.00-0.03); Imm Gran Pct Auto 0.3 % (0.0-0.4); Lymphocytes Absolute Auto 2.6 X10*3/uL (1.2-4.9); Lymphocytes Percent Auto 22.1 % (20-40); Mean Corpuscular HGB Conc 31.3 g/dl (31.0-35.0); Mean Corpuscular Hemoglobin 26.6 pg (27.0-33.0); Mean Corpuscular Volume 85.1 fL (80-98); Mean Platelet Volume 9.6 fL (9.4-12.3); Monocytes Absolute Auto 0.9 X10*3/uL (0.1-1.2); Monocytes Percent Auto 7.5 % (2-11); Neutrophils Absolute Auto 8.1 X10*3/uL (2.0-8.3); Neutrophils Percent Auto 68.5 % (45-73); Platelet Count 427 X10*3/uL (160-400); Red Blood Count 4.51 X10*6/uL (4.20-5.50); Red Cell Distribution Width 16.9 % (11.0-16.0); White Blood Count 11.8 X10*3/uL (4.8-10.8)
[2021-02-01 02:13] VITALS: BP 185/95; PULSE 73; RESP 20; TEMP 36.8; O2SAT 99
[2021-02-01] MEDS: Metoclopramide HCl 10 MG/2 ML VIAL IVPUSH (02:18)
[2021-02-01] MEDS: Morphine Sulfate 4 MG/ML CARTRIDGE IVPUSH (02:18)
[2021-02-01] MEDS: 0.9 % Sodium Chloride 1,000 ML 999 ML IV (02:18)
[2021-02-01] MEDS: diphenhydrAMINE HCL 50 MG/ML VIAL IVPUSH (02:18)
[2021-02-01 02:25] LABS: COVID-19 Test Negative (Negative); IDNOW Serial# 9DD0AD1C
[2021-02-01 02:27] LABS: Lactic Acid 1.2 mmol/L (0.5-2.0)
[2021-02-01 02:33] LABS: Alanine Aminotransferase 23 U/L (0-31); Albumin Level 4.4 g/dL (3.5-5.0); Alkaline Phosphatase 103 U/L (39-117); Anion Gap 11 (12-20); Aspartate Amino Transferase 18 U/L (5-31); Bilirubin Total 0.3 mg/dL (0.0-1.0); Blood Urea Nitrogen 19 mg/dL (9-16); Calcium 9.2 mg/dL (8.4-10.2); Carbon Dioxide 30 mmol/L (22-29); Chloride 101 mmol/L (96-108); Creatinine Clr Calc Pharmacy 125.5; Estimated Glomerular Filt Rate > 60; Glucose Random 91 mg/dL (60-115); Potassium 4.2 mmol/L (3.3-5.1); Sodium 138 mmol/L (135-145); Total Protein 7.5 g/dL (6.5-8.0)
[2021-02-01 02:37] LABS: Glucose Urine UA NEG (NEG); Leukocyte Esterase Urine NEG (NEG); Nitrite Urine NEG (NEG); Urine Blood NEG (NEG); Urine Ketones NEG (NEG); Urine Protein NEG (NEG-TRACE)
[2021-02-01 02:38] LABS: Appearance Urine CLEAR; Color Urine YELLOW
[2021-02-01 04:49] VITALS: BP 149/87; PULSE 79; RESP 18; O2SAT 97
[2021-02-01] MEDS: Cyclobenzaprine HCl 10 MG TABLET PO (04:49)
== END 2021-02-01 04:53 | disposition home or self-care (01) ==
PROVIDERS: Emergency Provider Emergency Medicine Emergency Medical Services; PCP Student in an Organized Health Care Education/Training Program
DX: R51.9 Headache, unspecified (principal); M54.5 Low back pain; Z20.822 Contact with and (suspected) exposure to COVID-19; R50.9 Fever, unspecified; I10 Essential (primary) hypertension; Z79.899 Other long term (current) drug therapy
CPT/HCPCS: 36415; 71046; 80053; 81003; 83605; 85025; 87040; 87147; 87205; 87635; 96361; 96374; 96375; 99284; J1200; J2270; J2765

== ENCOUNTER 2021-03-08 12:27 | Emergency (ER) | payer MEDICAID, SELFPAY ==
[2021-03-08 13:30] VITALS: BP 142/66; PULSE 68; RESP 18; TEMP 36.8; O2SAT 98; BMI 45.8
--- NOTE | 2021-03-08 14:42 | ED.LOWEXIN ---
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 Patient states that she has appointment with pain clinic at [address] [place] [address] and is on a waiting list for injection. Patient denies any neurological symptoms. She reports that she is unable to work as she is in a lot of pain. Patient has not been taking anything else for pain. Denies any other concerning symptoms. MD complaint: hip injury (Left sciatica pain) Onset (ago): month(s) Type of Injury: other Related Data Home Medications Medication Instructions Recorded Confirmed albuterol sulfate 90 mcg/actuation 2 puff INHALATION Q6H PRN 04/27/20 12/21/20 aerosol inhaler (ProAir HFA) cetirizine 10 mg tablet 10 mg PO DAILY 04/27/20 12/21/20 docusate sodium 100 mg capsule 100 mg PO DAILY 04/27/20 12/21/20 (DOK) duloxetine 30 mg capsule,delayed 30 mg PO DAILY 04/27/20 12/21/20 release esomeprazole magnesium 40 mg 40 mg PO DAILY 04/27/20 12/21/20 capsule,delayed release metoprolol tartrate 50 mg tablet 50 mg PO DAILY 04/27/20 12/21/20 montelukast 10 mg tablet 10 mg PO DAILY 04/27/20 12/21/20 clonidine HCl 0.1 mg tablet 0.1 mg PO BID 06/05/20 12/21/20 apixaban 5 mg tablet (Eliquis) 5 mg PO BID 06/28/20 12/21/20 atorvastatin 40 mg tablet 40 mg PO BEDTIME 06/28/20 12/21/20 losartan 100 mg tablet 100 mg PO DAILY 06/28/20 12/21/20 topiramate 25 mg tablet (Topamax) 50 mg PO DAILY tab 01/11/21 topiramate 50 mg tablet (Topamax) 50 mg PO BID 01/17/21 Previous Rx's Medication Instructions Recorded osmvskrlvy-qppfdfjatmaaq-mqzgpszf 1 cap PO Q6H PRN #20 cap 01/03/21 50 mg-300 mg-40 mg capsule (Fioricet) cyclobenzaprine 10 mg tablet 10 mg PO TID PRN #15 tab 02/01/21 morphine 15 mg immediate release 15 mg PO Q4-6H PRN #10 tab 02/01/21 tablet cyclobenzaprine 10 mg tablet 10 mg PO QAM PRN #10 tab 03/08/21 diazepam 5 mg tablet (Valium) 5 mg PO BEDTIME PRN #5 tab 03/08/21 Allergies Allergy/AdvReac Type Severity Reaction Status Date / Time aspirin AdvReac Mild bleeding Verified 03/08/21 13:30 [facility] Past Medical History Medical History Bleeding disorder COVID-19 Gout High cholesterol History of gastric ulcer Hypertension Lab test positive for detection of COVID-19 virus (~11/2019) Left inguinal hernia (~2013) Osteoarthritis of knees, bilateral Surgical History H/O umbilical hernia repair (07/25/06) Hx of endoscopy S/P partial hysterectomy (11/10/18) Family History Family History Father Hx of diabetes insipidus Mother No problems noted. Social History Social History Alcohol intake: never Patient Tobacco Use Status: Never used Tobacco e-Cigarette/Vaping Use: Never Used Advance Directives: Yes Advance Directives on File: Yes Advance Directives Date on File: 01/24/21 Physical Exam Vital Signs: Vital Signs: Last Vital Signs Temp 98.3 F 03/08/21 13:30 Pulse 68 03/08/21 13:30 Resp 18 03/08/21 13:30 BP 142/66 H 03/08/21 13:30 Pulse Ox 98 03/08/21 13:30 Body Mass Index 45.8 Course Course Course Narrative: 50-year-old female with left arm and tingling like sensation along with left sciatica pain that has been going on for over a year. 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 Patient denies any neurological symptoms. Neuro exam negative for any paresthesia. Will medicate her with cyclobenzaprine. Patient will most likely need physical therapy and follow-up with pain management. Reevaluation(s) Reevaluation #1: Patient is feeling better after cyclobenzaprine. Will send her home to follow-up with PCP and with pain management. Patient would benefit from physical therapy. Discharge Plan Discharge Clinical Impression: Muscle strain, Sciatica of left side Patient Disposition: Home, Self-Care Instructions: Muscle Strain (ED), Sciatica (ED) Additional Instructions: You were seen here today for left upper back and left sciatica pain. Please follow-up with your primary care provider's so you can get physical therapy. Please also follow-up with pain management for possible injection. You will be sent home with muscle relaxer. Please do not drive when you are on this medication. You may return to emergency department if your symptoms will get worse or if you will experience any other concerning symptoms. Prescriptions: New cyclobenzaprine 10 mg tablet 10 mg PO QAM PRN (Reason: muscle spasm) Qty: 10 RF: 0 diazepam [Valium] 5 mg tablet 5 mg PO BEDTIME PRN (Reason: muscle spasm) Qty: 5 RF: 0 No Action lxqdotikwh-ovbytpjvexkzs-oirs [Fioricet] 50-300-40 mg capsule 1 cap PO Q6H PRN (Reason: pain) Qty: 20 RF: 0 cyclobenzaprine 10 mg tablet 10 mg PO TID PRN (Reason: pain, muscle spasm) Qty: 15 RF: 0 morphine 15 mg tablet 15 mg PO Q4-6H PRN (Reason: pain) Qty: 10 RF: 0 clonidine HCl 0.1 mg tablet 0.1 mg PO BID RF: 0 albuterol sulfate [ProAir HFA] 90 mcg/actuation HFA aerosol inhaler 2 puff inhalation Q6H PRNRF: 0 cetirizine 10 mg tablet 10 mg PO DAILY RF: 0 docusate sodium [DOK] 100 mg capsule 100 mg PO DAILY RF: 0 duloxetine 30 mg capsule,delayed release(DR/EC) 30 mg PO DAILY RF: 0 montelukast 10 mg tablet 10 mg PO DAILY RF: 0 esomeprazole magnesium 40 mg capsule,delayed release(DR/EC) 40 mg PO DAILY RF: 0 metoprolol tartrate 50 mg tablet 50 mg PO DAILY RF: 0 atorvastatin 40 mg tablet 40 mg PO BEDTIME RF: 0 Eliquis 5 mg tablet 5 mg PO BID RF: 0 losartan 100 mg tablet 100 mg PO DAILY RF: 0 Referrals: Sukhi Soriano MD [Physician] - 2 days Davina aMrie MD [Primary Care Provider] - 2 days Stand Alone Forms: Work/School Release
[2021-03-08] MEDS: Cyclobenzaprine HCl 10 MG TABLET PO (15:08)
== END 2021-03-08 16:42 | disposition home or self-care (01) ==
PROVIDERS: Emergency Provider Emergency Medicine; PCP Student in an Organized Health Care Education/Training Program
DX: M54.42 Lumbago with sciatica, left side (principal); Z79.899 Other long term (current) drug therapy
CPT/HCPCS: 99283

== ENCOUNTER → 2021-03-20 09:30 | Outpatient (BNVA) | payer MEDICAID, SELFPAY | PROVIDERS: PCP Student in an Organized Health Care Education/Training Program; Visit Provider Anesthesiology | DX: M47.816 Spondylosis without myelopathy or radiculopathy, lumbar region (principal); M17.0 Bilateral primary osteoarthritis of knee | CPT/HCPCS: 64493; 64494; J3300; Q9967 ==

== ENCOUNTER → 2021-04-19 08:38 | Outpatient (BNVA) | payer MEDICAID, SELFPAY | PROVIDERS: PCP Student in an Organized Health Care Education/Training Program; Visit Provider Anesthesiology | DX: M47.816 Spondylosis without myelopathy or radiculopathy, lumbar region (principal); M17.0 Bilateral primary osteoarthritis of knee | CPT/HCPCS: 99212; J3300 ==

== ENCOUNTER 2021-05-22 06:25 | Outpatient (REF) | payer MEDICAID, SELFPAY ==
--- NOTE | ~2021-05-22 | FL_ITS ---
EXAMINATION: XR FLUOROSCOPY WITH IMAGES CLINICAL INFORMATION: M47.816 - Spondylosis without myelopathy or radiculopathy COMPARISON: Fluoroscopic spot views 12/05/2020 TECHNIQUE: Fluoroscopy performed by Dr. Sukhi Soriano. Fluoroscopy time: 0.6 minutes DAP: 12.9 Gycm2 Images: 6 FINDINGS: There are spinal needles overlying the bilateral outer L3, L4, and L5 neural foramen. There is contrast seen in the respective nerve sheaths. Some early transforaminal epidural extension is suggested. No visible vascular communication. FL/FL guidance in treatment room IMPRESSION: Fluoroscopy for pain management procedures.
== END 2021-05-22 06:26 | disposition home or self-care (01) ==
LOC: HO.RADIR 06:25
PROVIDERS: Visit Provider Anesthesiology
DX: M47.816 Spondylosis without myelopathy or radiculopathy, lumbar region (principal); M17.0 Bilateral primary osteoarthritis of knee
CPT/HCPCS: 64493; 64494; J3300; Q9967

== ENCOUNTER → 2021-06-20 08:10 | Outpatient (BNVA) | payer MEDICAID, SELFPAY | PROVIDERS: PCP Student in an Organized Health Care Education/Training Program; Visit Provider Anesthesiology | DX: M47.816 Spondylosis without myelopathy or radiculopathy, lumbar region (principal); M17.0 Bilateral primary osteoarthritis of knee | CPT/HCPCS: 20552; 99212 ==

== ENCOUNTER 2021-10-02 06:10 | Outpatient (REF) | payer MEDICAID, SELFPAY ==
--- NOTE | ~2021-10-02 | FL_ITS ---
EXAMINATION: XR FLUOROSCOPY WITH IMAGES CLINICAL INFORMATION: M47.816 - Spondylosis without myelopathy or radiculopathy COMPARISON: Fluoroscopic spot views 05/22/2021. TECHNIQUE: Fluoroscopy performed by Dr. Sukhi Soriano. Fluoroscopy time: 0.9 minutes DAP: 9.36 Gycm2 Images: 6 FINDINGS: There are spinal needles overlying the bilateral outer L3, L4, and L5 neural foramen. There is contrast seen in the respective nerve sheaths. Some early transforaminal epidural extension is suggested. No visible vascular communication. FL/FL guidance in treatment room IMPRESSION: Fluoroscopy for pain management procedures.
== END 2021-10-02 06:11 | disposition home or self-care (01) ==
LOC: HO.RADIR 06:10
PROVIDERS: Visit Provider Anesthesiology
DX: M47.816 Spondylosis without myelopathy or radiculopathy, lumbar region (principal); M17.0 Bilateral primary osteoarthritis of knee
CPT/HCPCS: 64493; 64494; J2795; J3300; Q9967

== ENCOUNTER → 2021-10-04 15:49 | Outpatient (BNVA) | payer MEDICAID, SELFPAY | PROVIDERS: PCP Student in an Organized Health Care Education/Training Program; Visit Provider Nurse Practitioner Family | DX: Z13.89 Encounter for screening for other disorder (principal) ==

== ENCOUNTER 2021-12-11 08:25 | Day surgery (SDC) | payer MEDICAID, SELFPAY ==
--- NOTE | ~2021-12-11 | FL_ITS ---
EXAMINATION: XR FLUOROSCOPY WITH IMAGES CLINICAL INFORMATION: Stimulator implant COMPARISON: October 02, 2021 TECHNIQUE: Fluoroscopy performed by Dr. Sukhi Soriano. Fluoroscopy time: 45.3 seconds DlP: 36.71 mGy Images: 2 FINDINGS: 2 images demonstrate a needle placed over the left side of the L4 vertebral body. FL/FL guidance in OR IMPRESSION: Intraoperative fluoroscopy for pain management procedure.
[2021-12-11 09:13] VITALS: BP 112/77; PULSE 59; RESP 18; TEMP 36.4; O2SAT 95; BMI 45.8
--- NOTE | 2021-12-11 09:28 | PC.NURSE ---
confirmed IV Abx with Dr. Soriano as patient is booked as local procedure. per Dr. Soriano he does want Cefazolin 2gm IV preop. Spoke to lending consultant Tim Us who confirmed this RN pulls Abx and obtains IV access and WASTE MANAGEMENT SPECIALIST will administer medication.
--- NOTE | 2021-12-11 10:04 | MHC.SHP ---
Pre-Procedural Eval Section A Date of Service: 12/11/21 The patient is an INPATIENT: No Changes since office visit: Yes Changes in Medication The History & Physical has been completed within 30 days and I have reviewed it.: No Section B Chief Complaint: Spondylosis without myelopathy or radiculopathy, l Details of Present Illness: as above Relevant Family History (Specify if Yes): No Relevant Social History: None Present Medications: see Short Stay Collaborative assessment Medical History: Significant History History of Previous Operations: No relevant previous surgery Allergies: Allergies Allergy/AdvReac Type Severity Reaction Status Date / Time aspirin AdvReac Mild bleeding Verified 10/04/21 15:50 Review of Systems Sugical H&P ROS: Negative: Cardiovascular, Respiratory, Neurological, Psychiatric, Hem-Onc, Allergic/Immunologic, Gastrointestinal, Genitourinary, Musculoskeletal, Integumentary, Endocrine and Eyes/Ears/Nose/Throat and Yes, Specify: Constitution (morbid obesity) Exam Surgical H&P Exam: Normal: HEENT, Normal: Heart, Normal: Lungs, Normal: Extremities, Normal: Skin and Normal: Neurological and Significant Findings: Abdomen (enlarged 2 to fat) Plan Diagnosis/Plan: Unchanged I have reviewed the history and physical and performed a pertinent physical examination on my patient. No changes have occurred unless specified.
--- NOTE | 2021-12-11 12:46 | PM.OP ---
Brief Operative Note Date of Service: 12/11/21 Pre-op diagnosis: spondylosis lumbar spine without myelopathy or radiculopathy Post-op diagnosis: same Procedure: SPRINT PNS L4 on the left. Implants: none permanent Surgeon: Sukhi Soriano MD Anesthesia: local Was an Yarding Supervisor used for this Procedure?: No Estimated blood loss (mL): 1 Pathology: none sent Condition: stable Disposition: PACU
--- NOTE | 2021-12-11 12:48 | W.PM.OPN ---
Operative Note Operative Note Date of Service: 12/11/21 Narrative: Percutaneous implantation of peripheral nerve stimulation Sprint system. After the risks, benefits and alternatives were discussed with the patient and informed consent was obtained, patient was brought to the operating room and placed in the prone position. Time out was performed delineating correct site and side of the procedure , name and of the patient, patient participated in time out procedure. Patient received antibiotics 3 g cefazolin approximately 30 minutes before the onset of the procedure. C-arm was brought over the operating field and clear picture of the L5 lamina on the left was delineated on the screen. The lower back of the patient was prepped with ChloraPrep and draped with full body fenestrated drape. The upper central portion of the lamina was chosen as a target of the needle tip incertion . After identifying and marking the intended target, the skin around the planned entry point and the subcutaneous tissues were injected with local anesthetic forming skin wheal..A percutaneous sleeve and stimulating probe lead introduction system were assembled, inserted and advanced through the skin wheal to the? point of interest under C-arm view in tunnel vision fashion, the introducer needle was delivered to a location in proximity to the nerve. Multiple stimulation parameters were used to deliver stimulation to the? nerve in concert with stimulating at multiple positions around the nerve. Unfortunately after multiple attempts to stimulate anything on the patient's left L5 lamina no stimulation were obtained. Decision was made to switch the position of stimulation to L4 laminae on the left where the procedure of needle insertion was repeated the very weight describes above. Again multiple stimulations were performed and Nerve target acquisition was confirmed noting generation of? in the? corresponding to the nerve being stimulated. Various electrical parameter combinations were tested, and the lead location was adjusted (physically relocated) until the patient indicated? overlapping the distribution of the patient?s typical region of pain. The stimulating probe was removed from the introducer and a percutaneous lead was guided through the needle and delivered to a location in similar proximity to the nerve. Final location was verified with electrical stimulation. The introducer needle was removed, and the exposed end of the percutaneous lead was attached to an external stimulator unit. Various electrical parameter combinations were again tested until the patient indicated paresthesia or muscle tension overlapping the distribution of the patient?s typical region of pain. After confirming that lead impedance was in the normal range, the external unit was detached, the needle was removed, and the lead was anchored at the skin. The lead was threaded into the connector block and electrical continuity and desired patient response was confirmed. The connector block was attached to the external stimulator unit. The site was covered with a sterile occlusive dressing and a? image was taken to document final placement. Upon completion of the procedure the patient was taken outside the OR where she recovered uneventfully she went home without immediate complications.
[2021-12-11 13:10] VITALS: BP 129/78; PULSE 66; RESP 16; TEMP 36.6; O2SAT 98
[2021-12-11 14:27] VITALS: BP 140/62; PULSE 64; RESP 19; TEMP 36.5; O2SAT 97
== END 2021-12-11 14:36 | disposition home or self-care (01) ==
PROVIDERS: PCP Student in an Organized Health Care Education/Training Program; Visit Provider Anesthesiology
PROC: (CPT 64555; principal; 2021-12-11 11:00)
DX: M47.816 Spondylosis without myelopathy or radiculopathy, lumbar region (principal); M17.0 Bilateral primary osteoarthritis of knee; G89.4 Chronic pain syndrome; M25.561 Pain in right knee; M25.562 Pain in left knee; I10 Essential (primary) hypertension; E78.00 Pure hypercholesterolemia, unspecified; D68.9 Coagulation defect, unspecified; M10.9 Gout, unspecified; E66.01 Morbid (severe) obesity due to excess calories; Z68.42 Body mass index [BMI] 45.0-49.9, adult; Z79.01 Long term (current) use of anticoagulants; Z88.8 Allergy status to other drugs, medicaments and biological substances; Z86.16 Personal history of COVID-19
CPT/HCPCS: 64555; C1778; J0690

== ENCOUNTER 2021-12-18 08:02 | Day surgery (SDC) | payer MEDICAID, SELFPAY ==
--- NOTE | ~2021-12-18 | FL_ITS ---
EXAMINATION: XR FLUOROSCOPY WITH IMAGES CLINICAL INFORMATION: Spring stimulator implant COMPARISON: 12/11/2021 TECHNIQUE: Fluoroscopy performed by Dr. Sukhi Soriano. Fluoroscopy time: 0.1 minutes DAP: 2.39 mGycm2 Images: 1 FINDINGS: Single image demonstrates needle projecting over L4. FL/FL guidance in OR IMPRESSION: Fluoroscopic assistance for procedure performance; please see procedure note for full details.
[2021-12-18 09:33] VITALS: BP 129/77; PULSE 76; RESP 18; TEMP 36.8; O2SAT 96
[2021-12-18 09:38] VITALS: BMI 45.8
[2021-12-18] MEDS: Albuterol Sulfate (0.083%) 2.5 MG/3 ML VIAL.NEB INHALE (10:26)
[2021-12-18 10:27] VITALS: PULSE 63; RESP 18; O2SAT 99
--- NOTE | 2021-12-18 10:38 | PC.NURSE ---
pt received udn for exp wheezes, no sob, with improvement of clear bilat s/p udn except for upper airway audible with exp wheezes with exertion.
--- NOTE | 2021-12-18 11:00 | MHC.SHP ---
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, Details of Present Illness: as above Relevant Family History (Specify if Yes): No Relevant Social History: None Present Medications: see Short Stay Collaborative assessment Medical History: Significant History History of Previous Operations: No relevant previous surgery Allergies: Allergies Allergy/AdvReac Type Severity Reaction Status Date / Time aspirin AdvReac Mild bleeding Verified 10/04/21 15:50 Review of Systems Sugical H&P ROS: Negative: Cardiovascular, Respiratory, Neurological, Psychiatric, Hem-Onc, Allergic/Immunologic, Gastrointestinal, Genitourinary, Musculoskeletal, Integumentary, Endocrine and Eyes/Ears/Nose/Throat and Yes, Specify: Constitution (Morbid obesity) Exam Surgical H&P Exam: Normal: HEENT, Normal: Heart, Normal: Lungs, Normal: Extremities, Normal: Skin and Normal: Neurological and Significant Findings: Abdomen (enlarged) Plan Diagnosis/Plan: Unchanged I have reviewed the history and physical and performed a pertinent physical examination on my patient. No changes have occurred unless specified.
--- NOTE | 2021-12-18 11:46 | P.BOP_ITS ---
Brief Operative Note Date of Service: 12/18/21 Pre-op diagnosis: spondylosis lumbar spine Post-op diagnosis: same Procedure: SPRINT PNS trial Implants: none permanent Surgeon: Sukhi Soriano MD Anesthesia: local Was an Temple Meat Cutter used for this Procedure?: No Estimated blood loss (mL): 0 Pathology: none sent Condition: stable Disposition: PACU
--- NOTE | 2021-12-18 11:48 | P.OP_ITS ---
Operative Note Operative Note Date of Service: 12/11/21 Narrative: Percutaneous implantation of peripheral nerve stimulation Sprint system. After the risks, benefits and alternatives were discussed with the patient and informed consent was obtained, patient was brought to the operating room and placed in the prone position. Time out was performed delineating correct site and side of the procedure , name and of the patient, patient participated in time out procedure. Patient received antibiotics 3 g cefazolin approximately 30 minutes before the onset of the procedure. C-arm was brought over the operating field and clear picture of the L4 lamina on the right was delineated on the screen. The lower back of the patient was prepped with ChloraPrep and draped with full body fenestrated drape. The upper central portion of the lamina was chosen as a target of the needle tip incertion . After identifying and marking the intended target, the skin around the planned entry point and the subcutaneous tissues were injected with local anesthetic forming skin wheal..A percutaneous sleeve and stimulating probe lead introduction system were assembled, inserted and advanced through the skin wheal to the? point of interest under C-arm view in tunnel vision fashion, the introducer needle was delivered to a location in proximity to the nerve. multiple stimulations were performed and Nerve target acquisition was confirmed noting generation of? in the? corresponding to the nerve being stimulated. Various electrical parameter combinations were tested, and the lead location was adjusted (physically relocated) until the patient indicated? overlapping the distribution of the patient?s typical region of pain. The stimulating probe was removed from the introducer and a percutaneous lead was guided through the needle and delivered to a location in similar proximity to the nerve. Final location was verified with electrical stimulation. The introducer needle was removed, and the exposed end of the percutaneous lead was attached to an external stimulator unit. Various electrical parameter combinations were again tested until the patient indicated paresthesia or muscle tension overlapping the distribution of the patient?s typical region of pain. After confirming that lead impedance was in the normal range, the external unit was detached, the needle was removed, and the lead was anchored at the skin. The lead was threaded into the connector block and electrical continuity and desired patient response was confirmed. The connector block was attached to the external stimulator unit. Currently the patient will have 2 units but later on the logistics service representative will bring 1 unit for with the both left and right stimulating leads and connect them together. The site was covered with a sterile occlusive dressing . Upon completion of the procedure the patient was taken outside the OR where she recovered uneventfully she went home without immediate complications.
[2021-12-18 11:50] VITALS: BP 115/79; PULSE 69; RESP 18; TEMP 36.2; O2SAT 95
== END 2021-12-18 13:10 | disposition home or self-care (01) ==
PROVIDERS: PCP Student in an Organized Health Care Education/Training Program; Visit Provider Anesthesiology
PROC: (CPT 64555; principal; 2021-12-18 11:00)
DX: M47.816 Spondylosis without myelopathy or radiculopathy, lumbar region (principal); M17.0 Bilateral primary osteoarthritis of knee; M25.562 Pain in left knee; M25.561 Pain in right knee; G89.4 Chronic pain syndrome; R26.2 Difficulty in walking, not elsewhere classified; I10 Essential (primary) hypertension; M10.9 Gout, unspecified; E66.01 Morbid (severe) obesity due to excess calories; Z68.42 Body mass index [BMI] 45.0-49.9, adult; Z88.8 Allergy status to other drugs, medicaments and biological substances; Z86.16 Personal history of COVID-19; Z79.01 Long term (current) use of anticoagulants
CPT/HCPCS: 64555; 94640; 94664; C1778; J0690; J2795

== ENCOUNTER 2022-01-01 06:05 | Outpatient (REF) | payer MEDICAID, SELFPAY | END 2022-01-01 06:06 | disposition home or self-care (01) | LOC: HO.RADIR 06:05 | PROVIDERS: Visit Provider Anesthesiology | DX: G89.4 Chronic pain syndrome (principal); M47.816 Spondylosis without myelopathy or radiculopathy, lumbar region; M17.0 Bilateral primary osteoarthritis of knee; E66.01 Morbid (severe) obesity due to excess calories; Z68.42 Body mass index [BMI] 45.0-49.9, adult | CPT/HCPCS: 64450 ==

== ENCOUNTER 2022-01-08 06:02 | Outpatient (REF) | payer MEDICAID, SELFPAY | END 2022-01-08 06:03 | disposition home or self-care (01) | LOC: HO.RADIR 06:02 | PROVIDERS: Visit Provider Anesthesiology | DX: M47.816 Spondylosis without myelopathy or radiculopathy, lumbar region (principal); M17.0 Bilateral primary osteoarthritis of knee; G89.4 Chronic pain syndrome; E66.01 Morbid (severe) obesity due to excess calories; Z68.42 Body mass index [BMI] 45.0-49.9, adult | CPT/HCPCS: 64450 ==

== ENCOUNTER → 2022-01-14 08:00 | Outpatient (BNVA) | payer MEDICAID, SELFPAY | PROVIDERS: PCP Student in an Organized Health Care Education/Training Program; Visit Provider Anesthesiology | DX: G89.4 Chronic pain syndrome (principal); M25.511 Pain in right shoulder; M25.512 Pain in left shoulder; M25.561 Pain in right knee; M25.562 Pain in left knee; M47.816 Spondylosis without myelopathy or radiculopathy, lumbar region; M17.0 Bilateral primary osteoarthritis of knee; E66.01 Morbid (severe) obesity due to excess calories; Z68.42 Body mass index [BMI] 45.0-49.9, adult | CPT/HCPCS: 20552; 99212 ==

== ENCOUNTER → 2022-02-04 09:01 | Outpatient (BNVA) | payer MEDICAID, SELFPAY | PROVIDERS: PCP Student in an Organized Health Care Education/Training Program; Visit Provider Anesthesiology | DX: M25.561 Pain in right knee (principal); M25.562 Pain in left knee; M17.0 Bilateral primary osteoarthritis of knee; G89.4 Chronic pain syndrome; E66.01 Morbid (severe) obesity due to excess calories; M47.816 Spondylosis without myelopathy or radiculopathy, lumbar region; Z68.42 Body mass index [BMI] 45.0-49.9, adult | CPT/HCPCS: 99212 ==

== ENCOUNTER 2022-02-26 08:54 | Day surgery (SDC) | payer MEDICAID, SELFPAY ==
--- NOTE | ~2022-02-26 | FL_ITS ---
EXAMINATION: XR FLUOROSCOPY WITH IMAGES CLINICAL INFORMATION: Sprint lumbar implant, bilateral leads. COMPARISON: MR lumbar spine, 10/18/2019 TECHNIQUE: Fluoroscopy performed by Dr. Sukhi Soriano. Fluoroscopy time: 0.4 minutes. Cumulative Dose: 14.5 mGy. DAP: 3.95 Gy-cm2. Images: 1. FINDINGS: There are bilateral needle/electrodes overlying left and right parasagittal lumbosacral junction. Leads show no kinking or defect. FL/FL guidance in OR IMPRESSION: Fluoroscopy for pain management procedure.
--- NOTE | 2022-02-26 09:33 | P.HPSUR_ITS ---
Pre-Procedural Eval Section A Date of Service: 02/26/22 The patient is an INPATIENT: No Changes since office visit: Yes Patient answered all questions The History & Physical has been completed within 30 days and I have reviewed it.: No Section B Chief Complaint: Spondylosis without myelopathy or radiculopathy, Details of Present Illness: Spondylosis without myelopathy or radiculopathy Relevant Family History (Specify if Yes): No Relevant Social History: None Present Medications: None Medical History: No relevant PMH History of Previous Operations: Relevant previous surgery/procedure and date(s) Allergies: Allergies Allergy/AdvReac Type Severity Reaction Status Date / Time aspirin AdvReac Mild bleeding Verified 02/04/22 09:50 Review of Systems Sugical H&P ROS: Negative: Constitution, Cardiovascular, Respiratory, Neurological, Psychiatric, Hem-Onc, Allergic/Immunologic, Gastrointestinal, Genitourinary, Musculoskeletal, Integumentary, Endocrine and Eyes/ Ears/Nose/Throat Exam Surgical H&P Exam: Normal: HEENT, Normal: Heart, Normal: Lungs, Normal: Extremities, Normal: Abdomen, Normal: Skin and Normal: Neurological Plan Diagnosis/Plan: Unchanged I have reviewed the history and physical and performed a pertinent physical examination on my patient. No changes have occurred unless specified.
--- NOTE | 2022-02-26 09:38 | P.OP_ITS ---
Operative Note Operative Note Date of Service: 02/26/22 Narrative: revision of the percutaneous implantation of peripheral nerve stimulation Sprint system. During the preoperative conversation today the patient was insisting that the site with poor coverage is actually on the left. The revision would be needed on the left. I examined the back of the patient and removed left sided stimulation lead which presumably does not help the patient. During the removal the right stimulation lead was also dislodged - we tried to do stimulation there and the patient lost the coverage of the stimulation. right lead was removed, consent was changed for the bilateral SPRINT PNS. After the risks, benefits and alternatives were discussed with the patient and informed consent was obtained, patient was brought to the operating room and placed in the prone position. Time out was performed delineating correct site and side of the procedure , name and of the patient, patient participated in time out procedure. Patient received antibiotics 2 g cefazolin approximately 30 minutes before the onset of the procedure. The lower back of the patient was prepped with ChloraPrep and draped with full body fenestrated drape.C-arm was brought over the operating field and clear picture of the L5 lamina on the right was delineated on the screen. The upper central portion of the lamina was chosen as a target of the needle tip insertion . After identifying and marking the intended target, the skin around the planned entry point and the subcutaneous tissues were injected with local anesthetic forming skin wheal..A percutaneous sleeve and stimulating probe lead introduction system were assembled, inserted and advanced through the skin wheal to the? point of interest under C-arm view in tunnel vision fashion, the intro ducer needle was delivered to a location in proximity to the nerve. multiple stimulations were performed the patient was denying appropriate stimulation at this area. The decision was made to change the position of the electrostimulation to the multifidus muscle on S1. Picture of the S1 lamina on the right was delineated on the screen. The upper central portion of the lamina was chosen as a target of the needle tip insertion . After identifying and marking the intended target, the skin around the planned entry point and the subcutaneous tissues were injected with local anesthetic forming skin wheal..A percutaneous sleeve and stimulating probe lead introduction system were assembled, inserted and advanced through the skin wheal to the? point of interest under C-arm view in tunnel vision fashion, the introducer needle was delivered to a location in proximity to the nerve. multiple stimulations were performed. Nerve/ muscle target acquisition was confirmed noting generation of? in the? corresponding to the nerve being stimulated. Various electrical parameter combinations were tested. After that the procedure was repeated in the same very fashion on the left side at the S1 where the patient again admitted the adequate coverage. The stimulating probe were removed from the introducer and percutaneous leads were guided through the needles and delivered to a location in similar proximity to the nerve. Final location was verified with electrical stimulation. The introducer needle was removed, and the exposed end of the percutaneous lead was attached to an external stimulator unit. Various electrical parameter combinations were again tested until the patient indicated paresthesia or muscle tension overlapping the distribution of the patient?s typical region of pain. After confirming that lead impedance was in the normal range, the external unit was detached, the needle was removed, and the lead was anchored at the skin. The lead was threaded into the connector block and electrical continuity and desired patient response was confirmed. The connector block was attached to the external stimulator unit. Upon completion of the procedure the patient was taken outside the OR where she recovered uneventfully she went home without immediate complications.
--- NOTE | 2022-02-26 09:41 | P.BOP_ITS ---
Brief Operative Note Date of Service: 02/26/22 Pre-op diagnosis: spondylosis lumbar spine without myelo/radiculopathy Post-op diagnosis: same Procedure: revision of the percutaneously implanted PNS stimwave Implants: none permanent Surgeon: Sukhi Soriano MD Anesthesia: local Was an Electromedical Equipment Repairer used for this Procedure?: No Estimated blood loss (mL): 1 Pathology: none sent Condition: stable Disposition: PACU
[2022-02-26 10:43] VITALS: BP 119/76; PULSE 66; RESP 16; TEMP 36.7; O2SAT 96
[2022-02-26 11:00] VITALS: RESP 16
== END 2022-02-26 11:38 | disposition home or self-care (01) ==
PROVIDERS: PCP Student in an Organized Health Care Education/Training Program; Visit Provider Anesthesiology
PROC: (CPT 64555; principal; 2022-02-26 10:00)
DX: M47.816 Spondylosis without myelopathy or radiculopathy, lumbar region (principal); G89.4 Chronic pain syndrome; M17.0 Bilateral primary osteoarthritis of knee; M25.561 Pain in right knee; M25.562 Pain in left knee; E66.01 Morbid (severe) obesity due to excess calories; Z68.42 Body mass index [BMI] 45.0-49.9, adult; D68.9 Coagulation defect, unspecified; I10 Essential (primary) hypertension; M10.9 Gout, unspecified; E78.00 Pure hypercholesterolemia, unspecified; Z79.899 Other long term (current) drug therapy; Z88.8 Allergy status to other drugs, medicaments and biological substances; Z86.16 Personal history of COVID-19; Z79.01 Long term (current) use of anticoagulants
CPT/HCPCS: 64555; J0690

== ENCOUNTER → 2022-03-04 08:26 | Outpatient (BNVA) | payer MEDICAID, SELFPAY | PROVIDERS: PCP Student in an Organized Health Care Education/Training Program; Visit Provider Anesthesiology | DX: G89.4 Chronic pain syndrome (principal); M25.561 Pain in right knee; M25.562 Pain in left knee; M47.816 Spondylosis without myelopathy or radiculopathy, lumbar region; M17.0 Bilateral primary osteoarthritis of knee; E66.01 Morbid (severe) obesity due to excess calories; Z68.42 Body mass index [BMI] 45.0-49.9, adult | CPT/HCPCS: 99212 ==

== ENCOUNTER → 2022-03-14 08:28 | Outpatient (BNVA) | payer MEDICAID, SELFPAY | PROVIDERS: PCP Student in an Organized Health Care Education/Training Program; Visit Provider Anesthesiology | DX: Z96.82 Presence of neurostimulator (principal) | CPT/HCPCS: 99211 ==

== ENCOUNTER 2022-04-17 12:52 | Outpatient (REF) | payer MEDICAID, SELFPAY ==
[2022-04-17 14:15] LABS: MANUAL DIFF FLAG NO
[2022-04-17 14:46] LABS: Basophils Percent Auto 0.3 % (0-2); Eosinophils Absolute Auto 0.4 X10*3/uL (0.0-0.4); Eosinophils Percent Auto 3.2 % (0-4); Hematocrit 38.9 % (37.0-47.0); Hemoglobin 12.7 g/dl (12.0-16.0); Imm Gran Abs Auto 0.03 X10*3/uL (0.00-0.03); Imm Gran Pct Auto 0.2 % (0.0-0.4); Lymphocytes Percent Auto 24.7 % (20-40); Mean Corpuscular HGB Conc 32.6 g/dl (31.0-35.0); Mean Corpuscular Hemoglobin 28.6 pg (27.0-33.0); Mean Corpuscular Volume 87.6 fL (80.0-98.0); Mean Platelet Volume 10.9 fL (9.4-12.3); Monocytes Absolute Auto 0.7 X10*3/uL (0.1-1.2); Monocytes Percent Auto 5.6 % (2-11); Platelet Count 429 X10*3/uL (160-400); Red Blood Count 4.44 X10*6/uL (4.20-5.50); Red Cell Distribution Width 14.6 % (11.0-16.0); White Blood Count 12.1 X10*3/uL (4.8-10.8)
== END 2022-04-17 12:53 | disposition home or self-care (01) ==
LOC: HO.LAB 12:52
PROVIDERS: PCP Student in an Organized Health Care Education/Training Program; Visit Provider Internal Medicine Pulmonary Disease
DX: J45.909 Unspecified asthma, uncomplicated (principal); Z91.09 Other allergy status, other than to drugs and biological substances
CPT/HCPCS: 36415; 82785; 85025; 86003; 99202

== ENCOUNTER → 2022-04-29 09:36 | Outpatient (BNVA) | payer MEDICAID, SELFPAY | PROVIDERS: PCP Student in an Organized Health Care Education/Training Program; Visit Provider Anesthesiology | DX: M47.816 Spondylosis without myelopathy or radiculopathy, lumbar region (principal); E66.01 Morbid (severe) obesity due to excess calories; G89.4 Chronic pain syndrome; M25.561 Pain in right knee; M25.562 Pain in left knee; M17.0 Bilateral primary osteoarthritis of knee; Z68.42 Body mass index [BMI] 45.0-49.9, adult | CPT/HCPCS: 99212 ==

== ENCOUNTER 2022-05-16 06:56 | Outpatient (REF) | payer MEDICAID, SELFPAY ==
--- NOTE | 2022-05-16 17:02 | PFT_ITS ---
FLOWS: FEV1 50% of predicted at 1.63 L. FVC 53% of predicted at 2.11 L. FEV1 to FVC ratio of 0.77. No bronchodilator response. LUNG VOLUMES: Total lung capacity 63% of predicted at 3.60 L. Residual volume 73% of predicted at 1.47 L. Slow vital capacity 58% of predicted at 2.13 L. Expiratory reserve volume 35% of predicted at 0.43 L. Diffusion capacity is mildly decreased, diffusion capacity corrects to normal after adjustment for alveolar ventilation. IMPRESSION: Moderate to severe restrictive ventilatory defect with no bronchodilator response. Decreased expiratory reserve volume suggests extrathoracic restriction likely secondary to abdominal obesity. Macho Taylor MD AP/MODL / [id number]
== END 2022-05-16 06:57 | disposition home or self-care (01) ==
LOC: HO.RESP 06:56
PROVIDERS: PCP Student in an Organized Health Care Education/Training Program; Visit Provider Internal Medicine Pulmonary Disease
DX: J45.909 Unspecified asthma, uncomplicated (principal)
CPT/HCPCS: 94060; 94727; 94729

== ENCOUNTER 2022-05-21 06:15 | Outpatient (REF) | payer MEDICAID, SELFPAY ==
--- NOTE | ~2022-05-21 | FL_ITS ---
EXAMINATION: XR FLUOROSCOPY WITH IMAGES CLINICAL INFORMATION: M17.0 - Bilateral primary osteoarthritis of knee COMPARISON: None. TECHNIQUE: Fluoroscopy Supervised By: Dr. Sukhi Soriano. Fluoroscopy Time: 0.3 minutes. Cumulative Dose: 2.32 mGy. DAP: 0.633 Gycm2. Images: 3. FINDINGS: There is a spinal needle with tip adjacent to the proximal medial tibia. Needle tip at mid bony on lateral view. There are degenerative changes with marginal osteophytes medial femoral condyle and medial tibial plateau. There is spurring at the quadriceps insertion patella. FL/FL guidance in treatment room IMPRESSION: Fluoroscopy for pain management procedure.
== END 2022-05-21 06:16 | disposition home or self-care (01) ==
LOC: CF 06:15
PROVIDERS: Visit Provider Anesthesiology
DX: G89.4 Chronic pain syndrome (principal); M17.0 Bilateral primary osteoarthritis of knee; M47.816 Spondylosis without myelopathy or radiculopathy, lumbar region; E66.01 Morbid (severe) obesity due to excess calories; Z68.42 Body mass index [BMI] 45.0-49.9, adult; J45.909 Unspecified asthma, uncomplicated; Z91.09 Other allergy status, other than to drugs and biological substances
CPT/HCPCS: 64450; 99212

== ENCOUNTER 2022-06-25 09:12 | Day surgery (SDC) | payer MEDICAID, SELFPAY ==
--- NOTE | ~2022-06-25 | FL_ITS ---
EXAMINATION: XR FLUOROSCOPY WITH IMAGES CLINICAL INFORMATION: Stimwave peripheral Nerve Stimulator Trial of knee COMPARISON: Fluoroscopic spot views 05/21/2022 TECHNIQUE: Fluoroscopy Supervised By: Dr. Sukhi Soriano. Fluoroscopy Time: 1.4 minutes. Cumulative Dose: 64.5 mGy. DAP: 15.6 Gycm2. Images: 2. FINDINGS: The AP view shows electrode along the medial side proximal tibia. No kinking or defect. FL/FL guidance in OR IMPRESSION: Fluoroscopy for pain management procedure.
[2022-06-25 13:01] VITALS: BMI 46.7
[2022-06-25 13:24] VITALS: BP 134/72; PULSE 61; RESP 18; TEMP 36.8; O2SAT 97
--- NOTE | 2022-06-25 13:31 | MHC.SHP ---
Pre-Procedural Eval Section A Date of Service: 06/25/22 The patient is an INPATIENT: No Changes since office visit: Yes Patient answered all questions The History & Physical has been completed within 30 days and I have reviewed it.: No Section B Chief Complaint: Spondylosis without myelopathy or radiculopathy,os Details of Present Illness: right knee pain. Relevant Family History (Specify if Yes): No Relevant Social History: None Medical History: No relevant PMH History of Previous Operations: No relevant previous surgery Allergies: Allergies Allergy/AdvReac Type Severity Reaction Status Date / Time aspirin AdvReac Mild bleeding Verified 05/29/22 11:05 Review of Systems Sugical H&P ROS: Negative: Cardiovascular, Respiratory, Neurological, Psychiatric, Hem-Onc, Allergic/Immunologic, Gastrointestinal, Genitourinary, Integumentary, Endocrine and Eyes/Ears/Nose/Throat and Yes, Specify: Constitution (morbid obesity) and Musculoskeletal (knee osteoarthritis right) Exam Surgical H&P Exam: Normal: HEENT, Normal: Heart, Normal: Lungs, Normal: Extremities, Normal: Skin and Normal: Neurological and Significant Findings: Abdomen (enlarged 2 to i/a &s/q fat.) Plan Diagnosis/Plan: Unchanged I have reviewed the history and physical and performed a pertinent physical examination on my patient. No changes have occurred unless specified. We are planning to perform infrapatellar saphenous nerve PNS STIMWAVE. Time Spent With Patient Time: Total time managing care of this patient today _5___ minutes.
[2022-06-25 14:58] VITALS: BP 145/87; PULSE 64; RESP 14; TEMP 36.9; O2SAT 98
--- NOTE | 2022-06-25 15:05 | P.BOP_ITS ---
Brief Operative Note Date of Service: 06/25/22 Pre-op diagnosis: right knee osteoarthritis, right knee pain. Post-op diagnosis: same Procedure: Right infrapatellar saphenous PNS trial stimwave. Implants: none permanent Surgeon: Sukhi Soriano MD Anesthesia: local Was an Religious Education Director used for this Procedure?: No Estimated blood loss (mL): 5 Condition: stable Disposition: PACU
--- NOTE | 2022-06-25 15:09 | P.OP_ITS ---
Operative Note Operative Note Date of Service: 06/25/22 Narrative: trial of stim wave infrapatellar saphenous nerve stimulation wire insertion. .After obtaining informed consent patient was brought to the operating room, she was positioned supine on the operating table, with the gell bolster under right lower leg. ?? Time-out was performed delineating correct site, side, the nature of the procedure, patient's allergy, preoperative antibiotic.? All operating room staff was participating in OR time-out procedure.? The patient received cefazolin 2 g mg intravenously 30 minutes before the procedure ? The entire right leg from the mid thigh all the way down to the toes was prepped with ChloraPrep twice.? The foot was protected with the sterile foot cover and after that fenestrated full extremity drape was applied to the leg. attention was concentrated on the?right?INFRAPATELLAR SAPHENOUS NERVE.? Sterilely draped C-arm was brought over the operating field and sq picture of tibial bone was demonstrated on the screen.? The point of interest was deline ated as the connection between metaphysis and diaphysis of the medial site of the tibial bone. Care was taken to superimpose condyles on the lateral view. ? 22 gauge 3-1/2 inch spinal needle was driven to the point of interest where the advancement of the medial line of the shaft of the tibial bone changed its direction and formed an angle.? The position of the needle in the projection of mid shaft of the bone was verified on the lateral view.? 8 cm below that needle in the projection of the medial shaft of the tibial bone local anesthetic was injected with bupivacaine 0.5 % mixture with lidocaine 2% into the skin.? The insertion of the 14 gauge introducer was performed through the skin wheal and advanced cephalad toward the projection of the 22 gauge needle in the plane corresponding to mid shaft of the tibial bone on lateral view and following silhouette of the medial tibial bone on the AP view.? When the introducer reached the vicinity of 22 gauge needle guitar wire was inserted into the introducer needle and spread on anterior posterior and lateral views alongside the medial border of the tibial bone on anterior posterior view and in the projection of the mid shaft of the bone on the lateral view.? Upon completion of the advancement of the guitar wire it was removed and stimulator catheter was inserted and advanced in the same fashion.? When the catheter reached adequate position following curvature of the medial metaphysis of the tibial bone on anterior posterior view and position in midline of the shaft of the tibial bone in lateral view the introducer needle was gently removed with care taken not to dislodge the stimulating catheter.? After that the driving stylet was removed from the stimulating catheter and thin copper wire stimulating element was inserted into the catheter.? The catheter was fixed to the skin using Steri- Strips, sterile dressing was applied the catheter was tied on itself below the level of the 2nd electrode of antenna. The stimulating catheter was taped to the patient's skin using steri-strips.The area of manipulation was cobered with sterile 4x4 and tegaderm dressings? The stimulating paddle was taped to the position of the catheter. The patient tolerated procedure well she was taken outside of the operating room to recovery room where she recovered uneventfully.
[2022-06-25] MEDS: oxyCODONE HCl Immed Release 5 MG TABLET PO (15:30)
== END 2022-06-25 15:59 | disposition home or self-care (01) ==
PROVIDERS: PCP Student in an Organized Health Care Education/Training Program; Visit Provider Anesthesiology
PROC: (CPT 64555; principal; 2022-06-25 13:40)
DX: M47.816 Spondylosis without myelopathy or radiculopathy, lumbar region (principal); G89.4 Chronic pain syndrome; M25.561 Pain in right knee; M17.11 Unilateral primary osteoarthritis, right knee; M10.9 Gout, unspecified; E66.01 Morbid (severe) obesity due to excess calories; Z68.42 Body mass index [BMI] 45.0-49.9, adult; D68.9 Coagulation defect, unspecified; I10 Essential (primary) hypertension; E78.00 Pure hypercholesterolemia, unspecified; Z88.8 Allergy status to other drugs, medicaments and biological substances; Z86.16 Personal history of COVID-19
CPT/HCPCS: 64555; C1897; J0690

== ENCOUNTER → 2022-07-01 10:15 | Outpatient (BNVA) | payer MEDICAID, SELFPAY | PROVIDERS: PCP Student in an Organized Health Care Education/Training Program; Visit Provider Anesthesiology | DX: M17.0 Bilateral primary osteoarthritis of knee (principal); M47.816 Spondylosis without myelopathy or radiculopathy, lumbar region; G89.4 Chronic pain syndrome; E66.01 Morbid (severe) obesity due to excess calories; Z68.42 Body mass index [BMI] 45.0-49.9, adult | CPT/HCPCS: 99212 ==

== ENCOUNTER 2022-07-11 10:35 | Day surgery (SDC) | payer MEDICAID, SELFPAY ==
[2022-07-04 12:17] VITALS: BMI 46.7
--- NOTE | 2022-07-10 09:48 | P.CONAN_ITS ---
HPI - Anesthesia Eval Consult details Narrative: 52yo F for Right infrapatellar saphenous nerve Peripheral Nerve Stimulator Implant Eliquis for afib Per 05/2022 cardiac visit, pt reports SOB. 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 Not yet done. Case reviewed with Dr Bryant. OK to eval preop, but if any cardiac symptoms or SOB, case will be postponed to obtain cardiac testing. Dr Soriano notified 07/10/22 1000. [facility] Active Problems Active Problems: All Active Problems (Updated 07/04/22 @ 13:00 by Charmaine Gonzalez, TIFFANIE) Asthma (Acute) HTN (hypertension), benign (Acute) Arthritis of knee (Acute) Depression (Acute) Anemia (Acute) GERD with esophagitis (Acute) Dysphagia, pharyngoesophageal phase (Acute) Abdominal bloating (Acute) Spondylosis of lumbar region without myelopathy or radiculopathy (Acute) Carotid stenosis, bilateral (Acute) Headache (Acute) Bilateral knee pain (Acute) Morbid obesity with BMI of 45.0-49.9, adult (Acute) Chronic pain syndrome (Acute) Osteoarthritis of knees, bilateral (Acute) Spondylosis of lumbar joint (Acute) Asthma (Acute) Environmental allergies (Acute) Osteoarthritis of knees, bilateral (Acute) Past Medical History Medical History (Updated 07/04/22 @ 13:00 by Charmaine Gonzalez, TIFFANIE) Bleeding disorder COVID-19 Gout High cholesterol History of gastric ulcer Hypertension Lab test positive for detection of COVID-19 virus (~11/2019) Left inguinal hernia (~2013) SANDEE (obstructive sleep apnea) Osteoarthritis of knees, bilateral Family History Family History Father Hx of diabetes insipidus Mother No problems noted. Surgical History Surgical History H/O umbilical hernia repair (07/25/06) Hx of endoscopy S/P partial hysterectomy (11/10/18) Social History Social History Alcohol intake: never Patient Tobacco Use Status: Never used Tobacco e-Cigarette/Vaping Use: Never Used Second Hand Smoke Exposure: No Are you DNR?: No Advance Directives: Yes Advance Directives Information Provided: No Advance Directives on File: Yes Advance Directives Date on File: 01/24/21 Recently lost weight without trying: No Nutrition Risks: No Nutritional Risk Meds Allergies Allergy/AdvReac Type Severity Reaction Status Date / Time aspirin AdvReac Mild mild Verified 07/04/22 12:10 vaginal bleeding Home Medications Medication Instructions Recorded Confirmed Last Taken Type albuterol sulfate 90 mcg/actuation 2 puff inhalation Q6H PRN 04/27/20 07/04/22 02/26/22 History aerosol inhaler (ProAir HFA) Shortness Of Breath cetirizine 10 mg tablet 10 mg PO DAILY 04/27/20 07/04/22 02/26/22 History docusate sodium 100 mg capsule 100 mg PO DAILY 04/27/20 07/04/22 02/26/22 History (DOK) duloxetine 30 mg capsule,delayed 30 mg PO DAILY 04/27/20 07/04/22 02/26/22 History release metoprolol tartrate 50 mg tablet 50 mg PO DAILY 04/27/20 07/04/22 02/26/22 History montelukast 10 mg tablet 10 mg PO DAILY 04/27/20 07/04/22 02/26/22 History clonidine HCl 0.1 mg tablet 0.1 mg PO BID 06/05/20 07/04/22 02/26/22 History apixaban 5 mg tablet (Eliquis) 5 mg PO BID 06/28/20 07/04/22 02/23/22 History atorvastatin 40 mg tablet 40 mg PO BEDTIME 06/28/20 07/04/22 02/26/22 History losartan 100 mg tablet 100 mg PO DAILY 06/28/20 07/04/22 02/26/22 History topiramate 25 mg tablet (Topamax) 50 mg PO DAILY 01/11/21 07/04/22 02/26/22 History topiramate 50 mg tablet (Topamax) 50 mg PO BID 01/17/21 07/04/22 02/26/22 History furosemide 20 mg tablet 10 mg PO QAM 12/25/21 07/04/22 02/26/22 History topiramate 100 mg tablet 100 mg PO BEDTIME 12/25/21 07/04/22 02/26/22 History cyanocobalamin (vitamin B-12) 500 500 mcg PO QAM 01/08/22 07/04/22 02/26/22 History mcg tablet ergocalciferol (vitamin D2) 1,250 1,250 mcg PO QWEEK 01/08/22 07/04/22 02/26/22 History mcg (50,000 unit) capsule ferrous sulfate 325 mg (65 mg 325 mg PO QAM 01/08/22 07/04/22 02/26/22 History iron) tablet (FeroSul) omeprazole 20 mg capsule,delayed 20 mg PO QAM 01/08/22 07/04/22 02/26/22 History release Exam Exam Date and Time: July 10, 2022 0948 Height,Weight and Vital Signs: Height 5 ft 9 in Weight 143.789 kg Pertinent Lab Results Pertinent Lab Results: Laboratory Tests 04/17/22 14:14 WBC 12.1 H Hgb 12.7 Hct 38.9 Plt Count 429 H Assessment and Plan Assessment Anesthesia Assessment: Chart Reviewed
--- NOTE | ~2022-07-11 | FL_ITS ---
EXAMINATION: XR FLUOROSCOPY WITH IMAGES CLINICAL INFORMATION: Right leg pain. COMPARISON: None. TECHNIQUE: Fluoroscopy Supervised By: Dr. Sukhi Soriano Fluoroscopy Time: 0.5 minutes. Cumulative Dose: 10.6 mGy. DAP: 2.91 Gycm2. Images: 3. FINDINGS: 3 images of the right proximal tibia and fibula reveal an infrapatellar saphenous stimulator along the medial proximal tibia. No gross bony abnormality seen. FL/FL guidance in OR IMPRESSION: Fluoroscopy guidance was provided to referring physician for pain management.
[2022-07-11 11:11] VITALS: BP 140/77; PULSE 67; RESP 18; TEMP 36.2; O2SAT 96
--- NOTE | 2022-07-11 11:27 | MHC.SHP ---
Pre-Procedural Eval Section A Date of Service: 07/11/22 The patient is an INPATIENT: No Changes since office visit: Yes Patient answered all questions The History & Physical has been completed within 30 days and I have reviewed it.: No Section B Chief Complaint: Bilateral primary osteoarth of knee,right and left Details of Present Illness: as above Relevant Family History (Specify if Yes): No Relevant Social History: None Present Medications: see Short Stay Collaborative assessment Medical History: No relevant PMH History of Previous Operations: No relevant previous surgery Allergies: Allergies Allergy/AdvReac Type Severity Reaction Status Date / Time aspirin AdvReac Mild mild Verified 07/04/22 12:10 vaginal bleeding Review of Systems Sugical H&P ROS: Negative: Cardiovascular, Respiratory, Neurological, Psychiatric, Hem-Onc, Allergic/Immunologic, Gastrointestinal, Genitourinary, Musculoskeletal, Integumentary, Endocrine and Eyes/Ears/Nose/Throat and Yes, Specify: Constitution (obesity) Exam Surgical H&P Exam: Normal: HEENT, Normal: Heart, Normal: Lungs, Normal: Extremities, Normal: Skin and Normal: Neurological and Significant Findings: Abdomen (enlarged 2 to s/q & i/a fat) Plan Diagnosis/Plan: Unchanged I have reviewed the history and physical and performed a pertinent physical examination on my patient. No changes have occurred unless specified. Time Spent With Patient Time: Total time managing care of this patient today __5__ minutes.
[2022-07-11] MEDS: Lactated Ringers 1,000 ML 50 ML IVCONT (11:35)
--- NOTE | 2022-07-11 12:12 | P.CONAN_ITS ---
[facility] Active Problems Active Problems: All Active Problems (Updated 07/04/22 @ 13:00 by Charmaine Gonzalez, RN) Asthma (Acute) HTN (hypertension), benign (Acute) Arthritis of knee (Acute) Depression (Acute) Anemia (Acute) GERD with esophagitis (Acute) Dysphagia, pharyngoesophageal phase (Acute) Abdominal bloating (Acute) Spondylosis of lumbar region without myelopathy or radiculopathy (Acute) Carotid stenosis, bilateral (Acute) Headache (Acute) Bilateral knee pain (Acute) Morbid obesity with BMI of 45.0-49.9, adult (Acute) Chronic pain syndrome (Acute) Osteoarthritis of knees, bilateral (Acute) Spondylosis of lumbar joint (Acute) Asthma (Acute) Environmental allergies (Acute) Osteoarthritis of knees, bilateral (Acute) Past Medical History Medical History (Updated 07/04/22 @ 13:00 by Charmaine Gonzalez, TIFFANIE) Bleeding disorder COVID-19 Gout High cholesterol History of gastric ulcer Hypertension Lab test positive for detection of COVID-19 virus (~11/2019) Left inguinal hernia (~2013) SANDEE (obstructive sleep apnea) Osteoarthritis of knees, bilateral Family History Family History Father Hx of diabetes insipidus Mother No problems noted. Family history of problems with anesthesia: No Surgical History Surgical History H/O umbilical hernia repair (07/25/06) Hx of endoscopy S/P partial hysterectomy (11/10/18) History of Problems with Anesthesia: No Social History Social History Alcohol intake: never Patient Tobacco Use Status: Never used Tobacco e-Cigarette/Vaping Use: Never Used Second Hand Smoke Exposure: No Are you DNR?: No Advance Directives: Yes Advance Directives Information Provided: No Advance Directives on File: Yes Advance Directives Date on File: 01/24/21 Recently lost weight without trying: No Nutrition Risks: No Nutritional Risk Meds Allergies Allergy/AdvReac Type Severity Reaction Status Date / Time aspirin AdvReac Mild mild Verified 07/04/22 12:10 vaginal bleeding Active Medications: Current Medications Lactated Ringer's (Lr) 1,000 mls @ 50 mls/hr IVCONT .Q20H ISMA Last Admin: 07/11/22 11:35 Dose: 50 mls/hr Home Medications Medication Instructions Recorded Confirmed Last Taken Type albuterol sulfate 90 mcg/actuation 2 puff inhalation Q6H PRN 04/27/20 07/11/22 07/11/22 History aerosol inhaler (ProAir HFA) Shortness Of Breath cetirizine 10 mg tablet 10 mg PO DAILY 04/27/20 07/11/22 07/11/22 History docusate sodium 100 mg capsule 100 mg PO DAILY 04/27/20 07/11/22 07/11/22 History (DOK) duloxetine 30 mg capsule,delayed 30 mg PO DAILY 04/27/20 07/11/22 07/11/22 History release metoprolol tartrate 50 mg tablet 50 mg PO DAILY 04/27/20 07/11/22 07/11/22 History montelukast 10 mg tablet 10 mg PO DAILY 04/27/20 07/11/22 07/11/22 History clonidine HCl 0.1 mg tablet 0.1 mg PO BID 06/05/20 07/11/22 07/11/22 History apixaban 5 mg tablet (Eliquis) 5 mg PO BID 06/28/20 07/11/22 07/08/22 History atorvastatin 40 mg tablet 40 mg PO BEDTIME 06/28/20 07/11/22 02/26/22 History losartan 100 mg tablet 100 mg PO DAILY 06/28/20 07/11/22 07/11/22 History topiramate 25 mg tablet (Topamax) 50 mg PO DAILY 01/11/21 07/11/22 07/11/22 History topiramate 50 mg tablet (Topamax) 50 mg PO BID 01/17/21 07/11/22 02/26/22 History furosemide 20 mg tablet 10 mg PO QAM 12/25/21 07/11/22 07/11/22 History topiramate 100 mg tablet 100 mg PO BEDTIME 12/25/21 07/11/22 02/26/22 History cyanocobalamin (vitamin B-12) 500 500 mcg PO QAM 01/08/22 07/11/22 07/11/22 History mcg tablet ergocalciferol (vitamin D2) 1,250 1,250 mcg PO QWEEK 01/08/22 07/11/22 02/26/22 History mcg (50,000 unit) capsule ferrous sulfate 325 mg (65 mg 325 mg PO QAM 01/08/22 07/11/22 07/10/22 History iron) tablet (FeroSul) omeprazole 20 mg capsule,delayed 20 mg PO QAM 01/08/22 07/11/22 07/11/22 History release Exam Exam Date and Time: July 11, 2022 121 Height,Weight and Vital Signs: Height 5 ft 9 in Weight 143.789 kg Last Vital Signs Temp 97.1 F 07/11/22 11:11 Pulse 67 07/11/22 11:11 Resp 18 07/11/22 11:11 BP 140/77 H 07/11/22 11:11 Pulse Ox 96 07/11/22 11:11 O2 Del Method 07/11/22 11:11 Airway Mallampati Class: III TM Dist: >3cm Neck ROM: Full Assessment and Plan Assessment Anesthesia Assessment: Anesthesia Plan Discussed and Chart Reviewed Final Anesthetic Review Family History of Problems with Anesthesia: No History of Problems with Anesthesia: No NPO: Yes ASA Class: III Final Preanesthetic Review: No Changes in Pt Med Stat, Meds/Allgs Chart Reviewed, Consent Obtained/Reviewed and Anes Risks/Benef Reviewed Patient Risk: Low Procedure Risk: Intermediate Anesthetic Plan Anesthetic Plan: MAC:
--- NOTE | 2022-07-11 12:16 | W.PM.OPN ---
Operative Note Operative Note Date of Service: 07/11/22 Narrative: Implantation of the peripheral nerve stimulating wire stim wave in infrapatellar saphenous right position.? After obtaining informed consent the patient was brought to the operating room, she was positioned supine on the operating table, [employer] monitors were applied and she was sedated. ?? Time-out was performed delineating correct site, side, the nature of the procedure, patient's allergy, preoperative antibiotic.? All operating room staff was participating in OR time-out procedure.? The patient received cefazolin 3 g mg intravenously 10 minutes before the procedure The patient was positioned supine on the operating table with the right leg elevated on a gel bin.? ? The entire right leg from the mid thigh all the way down to the toes was prepped with ChloraPrep twice.? The foot was protected with the sterile foot cover and after that fenestrated full extremity drape was applied to the leg. Attention was concentrated on the?right?INFRAPATELLAR SAPHENOUS NERVE.? Sterilely draped C-arm was brought over the operating field and sq picture of? right tibial bone was demonstrated on the screen.? The point of interest was delineated as the confluence of the metaphysis and diaphysis of the medial site of the tibial bone.?? 25 gauge 3-1/2 inch spinal needle was driven to the point of interest where the advancement of the medial line of the shaft of the tibial bone changed its direction and formed an angle.? The position of the needle in the projection of mid shaft of the bone was verified on the lateral view.? 8 cm below that needle in the projection of the medial shaft of the tibial bone local anesthetic was injected with ropivacaine 0.5 % mixture with lidocaine 2% into the skin.? At this point 3 cm incision was made to the skin using 15 blade scalpel.? Thorough hemostasis was obtained? using electrocautery.? The insertion of the 14 gauge introducer maluable needle was performed and advanced cephalad toward the projection of the 22 gauge needle in the plane corresponding to mid shaft of the tibial bone on lateral view and following silhouette of the medial tibial bone on the AP view.? When the introducer reached the vicinity of 22 gauge needle guitar wire was inserted into the introducer needle and spread on anterior posterior and lateral views alongside the medial border of the tibial bone on anterior posterior view and in the projection of the mid shaft of the bone on the lateral view.? Upon completion of the advancement of the guitar wire it was removed and stimulator catheter was inserted and advanced in the same fashion.? When the catheter reached adequate position following curvature of the medial metaphysis of the tibial bone on anterior posterior view and position in midline of the shaft of the tibial bone in lateral view the introducer needle was gently removed with care taken not to dislodge the stimulating catheter.? After that the driving stylet was removed from the stimulating catheter and thin copper wire stimulating element was inserted into the catheter.? The catheter was fixed to the? Subcutaneous fascia with 1 Tycron suture 0-2. ? After that 15 cm below that level another vertical incision was applied 3 cm long to medial surface of the ankle.? Thorough hemostasis was obtained. the 2 wounds were connected using tunneling device and the stimulating wire was dislodged into the ankle? wound.? After that the coil was formed at the end of the stimulating catheter the Patrizia clamp was used to create a pocket for the coil. the coil? was inserted into the pocket.? After that both wounds were irrigated with copious amount of vancomycin containing normal saline. 2-0 Polysorb suture was used to close both wounds and ? jarad were used to close theskin level. Bacitracin ointment was applied to the staple line.? Sterile dressing was applied using? Tegaderm tape. The patient tolerated procedure well she was? awaken and? taken outside of the operating room to recovery room for the recovery from anesthesia.
[2022-07-11 14:33] VITALS: BP 140/75; PULSE 73; RESP 16; TEMP 36.5; O2SAT 97
[2022-07-11 14:48] VITALS: BP 133/82; PULSE 65; RESP 18; TEMP 36.2; O2SAT 95
[2022-07-11 15:03] VITALS: BP 124/82; PULSE 64; RESP 18; TEMP 36.6; O2SAT 95
[2022-07-11] MEDS: oxyCODONE HCl Immed Release 5 MG TABLET PO (15:03)
== END 2022-07-11 15:44 | disposition home or self-care (01) ==
PROVIDERS: PCP Student in an Organized Health Care Education/Training Program; Visit Provider Anesthesiology
PROC: (CPT 64555; principal; 2022-07-11 12:20)
DX: M25.561 Pain in right knee (principal); G89.4 Chronic pain syndrome; M17.0 Bilateral primary osteoarthritis of knee; M47.816 Spondylosis without myelopathy or radiculopathy, lumbar region; G47.33 Obstructive sleep apnea (adult) (pediatric); D68.9 Coagulation defect, unspecified; I10 Essential (primary) hypertension; E78.00 Pure hypercholesterolemia, unspecified; E66.01 Morbid (severe) obesity due to excess calories; Z68.42 Body mass index [BMI] 45.0-49.9, adult; M10.9 Gout, unspecified; Z86.16 Personal history of COVID-19
CPT/HCPCS: 64555; C1787; C1816; J0690; J2795; J3370

== ENCOUNTER → 2022-07-18 09:11 | Outpatient (BNVA) | payer MEDICAID, SELFPAY | PROVIDERS: PCP Student in an Organized Health Care Education/Training Program; Visit Provider Anesthesiology | DX: M25.561 Pain in right knee (principal); M25.562 Pain in left knee; M47.816 Spondylosis without myelopathy or radiculopathy, lumbar region; M17.0 Bilateral primary osteoarthritis of knee; G89.4 Chronic pain syndrome; E66.01 Morbid (severe) obesity due to excess calories | CPT/HCPCS: 99212 ==

== ENCOUNTER → 2022-07-25 08:54 | Outpatient (BNVA) | payer MEDICAID, SELFPAY | PROVIDERS: PCP Student in an Organized Health Care Education/Training Program; Visit Provider Anesthesiology | DX: M47.816 Spondylosis without myelopathy or radiculopathy, lumbar region (principal); M17.0 Bilateral primary osteoarthritis of knee; M25.561 Pain in right knee; M25.562 Pain in left knee; E66.01 Morbid (severe) obesity due to excess calories; G89.4 Chronic pain syndrome | CPT/HCPCS: 99212 ==

== ENCOUNTER 2022-08-01 10:47 | Day surgery (SDC) | payer MEDICAID, SELFPAY ==
--- NOTE | ~2022-08-01 | FL_ITS ---
EXAMINATION: XR FLUOROSCOPY WITH IMAGES CLINICAL INFORMATION: Infrapatellar saphenous peripheral nerve stim. COMPARISON: None. TECHNIQUE: Fluoroscopy Supervised By: Dr. Sukhi Soriano. Fluoroscopy Time: 1.1 minutes. Cumulative Dose: 5.92 mGy. DAP: 1.60 Gycm2. Images: 2. FINDINGS: Stimulator lead is seen adjacent to the medial side proximal tibia with tip at level of the proximal metaphysis. There is no kinking or defect. Narrowing medial knee joint compartment with marginal osteophytes and mild genu varus. FL/FL guidance in OR IMPRESSION: Fluoroscopy for pain management procedure.
[2022-08-01 11:56] VITALS: BP 123/74; PULSE 65; RESP 18; TEMP 36.3; O2SAT 94; BMI 46.7
[2022-08-01 12:02] VITALS: BMI 46.7
--- NOTE | 2022-08-01 13:07 | P.HPSUR_ITS ---
Pre-Procedural Eval Section A Date of Service: 08/01/22 The patient is an INPATIENT: No Changes since office visit: Yes Patient answered all questions The History & Physical has been completed within 30 days and I have reviewed it.: No Section B Chief Complaint: osteoarthritis,pain right left knee Details of Present Illness: as above Relevant Family History (Specify if Yes): No Relevant Social History: None Present Medications: see Short Stay Collaborative assessment Medical History: No relevant PMH History of Previous Operations: No relevant previous surgery Allergies: Allergies Allergy/AdvReac Type Severity Reaction Status Date / Time aspirin AdvReac Mild mild Verified 07/25/22 09:27 vaginal bleeding Review of Systems Sugical H&P ROS: Negative: Cardiovascular, Respiratory, Neurological, Psychiatric, Hem-Onc, Allergic/Immunologic, Gastrointestinal, Genitourinary, Integumentary, Endocrine and Eyes/Ears/Nose/Throat and Yes, Specify: Constit ution (obesity) and Musculoskeletal (osteoarthritis) Exam Surgical H&P Exam: Normal: HEENT, Normal: Heart, Normal: Lungs, Normal: Extremities, Normal: Skin and Normal: Neurological and Significant Findings: Abdomen (enlarged 2 to i/a and s/q fat) Plan Diagnosis/Plan: Unchanged I have reviewed the history and physical and performed a pertinent physical examination on my patient. No changes have occurred unless specified. Time Spent With Patient Time: Total time managing care of this patient today _5___ minutes.
[2022-08-01] MEDS: Lactated Ringers 1,000 ML 50 ML IVCONT (13:12)
--- NOTE | 2022-08-01 13:16 | P.BOP_ITS ---
Brief Operative Note Date of Service: 08/01/22 Pre-op diagnosis: OA left knee, left knee pain. Post-op diagnosis: same Procedure: trial of PNS infrapatellar saphenous nerve stimwave. Implants: none permanent Surgeon: Sukhi Soriano MD Anesthesia: MAC Was an Outpatient Program Coordinator used for this Procedure?: No Estimated blood loss (mL): 5 Condition: stable Disposition: PACU
--- NOTE | 2022-08-01 13:16 | P.CONAN_ITS ---
[facility] Active Problems Active Problems: All Active Problems (Updated 07/04/22 @ 13:00 by Charmaine Gonzalez, RN) Asthma (Acute) HTN (hypertension), benign (Acute) Arthritis of knee (Acute) Depression (Acute) Anemia (Acute) GERD with esophagitis (Acute) Dysphagia, pharyngoesophageal phase (Acute) Abdominal bloating (Acute) Spondylosis of lumbar region without myelopathy or radiculopathy (Acute) Carotid stenosis, bilateral (Acute) Headache (Acute) Bilateral knee pain (Acute) Morbid obesity with BMI of 45.0-49.9, adult (Acute) Chronic pain syndrome (Acute) Osteoarthritis of knees, bilateral (Acute) Spondylosis of lumbar joint (Acute) Asthma (Acute) Environmental allergies (Acute) Osteoarthritis of knees, bilateral (Acute) Past Medical History Medical History (Updated 07/04/22 @ 13:00 by Charmaine Gonzalez, TIFFANIE) Bleeding disorder COVID-19 Gout High cholesterol History of gastric ulcer Hypertension Lab test positive for detection of COVID-19 virus (~11/2019) Left inguinal hernia (~2013) SANDEE (obstructive sleep apnea) Osteoarthritis of knees, bilateral Family History Family History Father Hx of diabetes insipidus Mother No problems noted. Family history of problems with anesthesia: No Surgical History Surgical History H/O umbilical hernia repair (07/25/06) Hx of endoscopy S/P partial hysterectomy (11/10/18) History of Problems with Anesthesia: No Social History Social History Alcohol intake: never Patient Tobacco Use Status: Never used Tobacco e-Cigarette/Vaping Use: Never Used Second Hand Smoke Exposure: No Use of substances other than those prescribed or required for medical reasons: No Are you DNR?: No Advance Directives: Yes Advance Directives on File: Yes Advance Directives Date on File: 01/24/21 Meds Allergies Allergy/AdvReac Type Severity Reaction Status Date / Time aspirin AdvReac Mild mild Verified 07/25/22 09:27 vaginal bleeding Active Medications: Current Medications Lactated Ringer's (Lr) 1,000 mls @ 50 mls/hr IVCONT .Q20H ISMA Last Admin: 08/01/22 13:12 Dose: 50 mls/hr Home Medications Medication Instructions Recorded Confirmed Last Taken Type albuterol sulfate 90 mcg/actuation 2 puff inhalation Q6H PRN 04/27/20 08/01/22 08/01/22 History aerosol inhaler (ProAir HFA) Shortness Of Breath cetirizine 10 mg tablet 10 mg PO DAILY 04/27/20 08/01/22 08/01/22 History docusate sodium 100 mg capsule 100 mg PO DAILY 04/27/20 08/01/22 08/01/22 History (DOK) duloxetine 30 mg capsule,delayed 30 mg PO DAILY 04/27/20 08/01/22 08/01/22 History release metoprolol tartrate 50 mg tablet 50 mg PO DAILY 04/27/20 08/01/22 08/01/22 History montelukast 10 mg tablet 10 mg PO DAILY 04/27/20 08/01/22 08/01/22 History clonidine HCl 0.1 mg tablet 0.1 mg PO BID 06/05/20 08/01/22 08/01/22 History apixaban 5 mg tablet (Eliquis) 5 mg PO BID 06/28/20 08/01/22 07/28/22 History atorvastatin 40 mg tablet 40 mg PO BEDTIME 06/28/20 08/01/22 08/01/22 History losartan 100 mg tablet 100 mg PO DAILY 06/28/20 08/01/22 08/01/22 History topiramate 25 mg tablet (Topamax) 50 mg PO DAILY 01/11/21 08/01/22 08/01/22 History topiramate 50 mg tablet (Topamax) 50 mg PO BID 01/17/21 08/01/22 08/01/22 History furosemide 20 mg tablet 10 mg PO QAM 12/25/21 08/01/22 08/01/22 History topiramate 100 mg tablet 100 mg PO BEDTIME 12/25/21 08/01/22 08/01/22 History cyanocobalamin (vitamin B-12) 500 500 mcg PO QAM 01/08/22 08/01/22 08/01/22 History mcg tablet ergocalciferol (vitamin D2) 1,250 1,250 mcg PO QWEEK 01/08/22 08/01/22 08/01/22 History mcg (50,000 unit) capsule ferrous sulfate 325 mg (65 mg 325 mg PO QAM 01/08/22 08/01/22 08/01/22 History iron) tablet (FeroSul) omeprazole 20 mg capsule,delayed 20 mg PO QAM 01/08/22 08/01/22 08/01/22 History release Exam Exam Date and Time: August 01, 2022 1316 Height,Weight and Vital Signs: Height 5 ft 9 in Weight 143.789 kg Last Vital Signs Temp 97.3 F 08/01/22 11:56 Pulse 65 08/01/22 11:56 Resp 18 08/01/22 11:56 BP 123/74 08/01/22 11:56 Pulse Ox 94 08/01/22 11:56 O2 Del Method 08/01/22 11:56 Airway Mallampati Class: III TM Dist: >3cm Neck ROM: Limited Heart: rrr Lungs: cta Assessment and Plan Final Anesthetic Review Family History of Problems with Anesthesia: No History of Problems with Anesthesia: No ASA Class: III Final Preanesthetic Review: No Changes in Pt Med Stat, Meds/Allgs Chart Reviewed, Consent Obtained/Reviewed and Anes Risks/Benef Reviewed Patient Risk: High Procedure Risk: Low Anesthetic Plan Anesthetic Plan: MAC: and Agree w/ Assess. and Plan Disposition: Standard PACU
--- NOTE | 2022-08-01 13:18 | P.OP_ITS ---
Operative Note Operative Note Date of Service: 08/01/22 Narrative: Trial of stim wave infrapatellar saphenous nerve stimulation wire insertion. After obtaining informed consent patient was brought to the operating room, she was positioned supine on the operating table, with the gell bolster under left lower leg. ?? Time-out was performed delineating correct site, side, the nature of the procedure, patient's allergy, preoperative antibiotic.? All operating room staff was participating in OR time-out procedure.? The patient received cefazolin 3 g mg intravenously at the beginning of the procedure. ? The entire left leg from the mid thigh all the way down to the toes was prepped with ChloraPrep twice.? The foot was protected with the sterile foot cover and after that fenestrated full extremity drape was applied to the leg. attention was concentrated on the?left ?INFRAPATELLAR SAPHENOUS NERVE.? Sterilely draped C-arm was brought over the operating field and sq picture of tibial bone was demonstrated on the screen.? The point of interest was delineated as the connection between metaphysis and diaphysis of the medial site of the tibial bone. Care was taken to superimpose condyles on the lateral view. ? 22 gauge 3-1/2 inch spinal needle was driven to the point of interest where the advancement of the medial line of the shaft of the tibial bone changed its direction and formed an angle.? The position of the needle in the projection of mid shaft of the bone was verified on the lateral view.? 8 cm below that needle in the projection of the medial shaft of the tibial bone local anesthetic was injected with bupivacaine 0.5 % mixture with lidocaine 2% into the skin.? The insertion of the 14 gauge introducer was performed through the skin wheal and advanced cephalad toward the projection of the 22 gauge needle in the plane corresponding to mid shaft of the tibial bone on lateral view and following silhouette of the medial tibial bone on the AP view.? When the introducer reached the vicinity of 22 gauge needle guitar wire was inserted into the introducer needle and spread on anterior posterior and lateral views alongside the medial border of the tibial bone on anterior posterior view and in the projection of the mid shaft of the bone on the lateral view.? Upon completion of the advancement of the guitar wire it was removed and stimulator catheter was inserted and advanced in the same fashion.? When the catheter reached adequate position following curvature of the medial metaphysis of the tibial bone on anterior posterior view and position in midline of the shaft of the tibial bone in lateral view the introducer needle was gently removed with care taken not to dislodge the stimulating catheter.? After that the driving stylet was removed from the stimulating catheter and thin copper wire stimulating element was inserted into the catheter.? The catheter was fixed to the skin using Steri- Strips, sterile dressing was applied the catheter was tied on itself below the level of the 2nd electrode of antenna. The stimulating catheter was taped to the patient's skin using steri-strips.The area of manipulation was covered with sterile 4x4 and tegaderm dressings? The stimulating paddle was taped to the position of the catheter. The patient tolerated procedure well she was taken outside of the operating room to recovery room where she recovered uneventfully.
[2022-08-01 14:43] VITALS: BP 123/85; PULSE 67; RESP 16; TEMP 36.6; O2SAT 97
[2022-08-01 14:58] VITALS: BP 138/84; PULSE 61; RESP 18; O2SAT 96
[2022-08-01 15:04] VITALS: BP 118/81
[2022-08-01 15:14] VITALS: BP 132/84; PULSE 61; RESP 18; O2SAT 99
[2022-08-01] MEDS: Acetaminophen 1,000 MG/100 ML PIGGYBACK 400 MG IV (15:21)
[2022-08-01 15:36] VITALS: BP 136/84; PULSE 62; RESP 15; TEMP 36.7; O2SAT 97
== END 2022-08-01 15:55 | disposition home or self-care (01) ==
PROVIDERS: PCP Student in an Organized Health Care Education/Training Program; Visit Provider Anesthesiology
PROC: (CPT 64555; principal; 2022-08-01 13:10)
DX: M25.562 Pain in left knee (principal); M17.12 Unilateral primary osteoarthritis, left knee; G89.4 Chronic pain syndrome; M10.9 Gout, unspecified; G47.33 Obstructive sleep apnea (adult) (pediatric); D68.9 Coagulation defect, unspecified; I10 Essential (primary) hypertension; E66.01 Morbid (severe) obesity due to excess calories; Z68.42 Body mass index [BMI] 45.0-49.9, adult; Z79.899 Other long term (current) drug therapy; Z88.8 Allergy status to other drugs, medicaments and biological substances; Z86.16 Personal history of COVID-19
CPT/HCPCS: 64555; C1897; J0131; J0690; J2795; J3370

== ENCOUNTER → 2022-08-08 09:48 | Outpatient (BNVA) | payer MEDICAID, SELFPAY | PROVIDERS: PCP Student in an Organized Health Care Education/Training Program; Visit Provider Anesthesiology | DX: G89.4 Chronic pain syndrome (principal); M17.0 Bilateral primary osteoarthritis of knee; M25.561 Pain in right knee; M25.562 Pain in left knee; E66.01 Morbid (severe) obesity due to excess calories; Z68.42 Body mass index [BMI] 45.0-49.9, adult; M47.816 Spondylosis without myelopathy or radiculopathy, lumbar region; Z98.890 Other specified postprocedural states | CPT/HCPCS: 99212 ==

== ENCOUNTER 2022-08-16 11:16 | Day surgery (SDC) | payer MEDICAID, SELFPAY ==
--- NOTE | 2022-08-15 13:33 | HO.ANESPROP2 ---
Documented by User: Fariha King NP 08/15/22 13:42 HPI - Anesthesia Eval Consult details Narrative: 52yo F for Left Peripheral Nerve Stimulator Implant,infrapellar saphenous s/p trial 08/01/22 with MAC s/p right side implant 06/2022 with MAC Eliquis for ? hx of TIA per PCP note PMFSH Active Problems Active Problems: All Active Problems (Updated 08/12/22 @ 15:17 by Ibeth Dangelo, RN) Asthma (Acute) HTN (hypertension), benign (Acute) Arthritis of knee (Acute) Depression (Acute) Anemia (Acute) GERD with esophagitis (Acute) Dysphagia, pharyngoesophageal phase (Acute) Abdominal bloating (Acute) Spondylosis of lumbar region without myelopathy or radiculopathy (Acute) Carotid stenosis, bilateral (Acute) Headache (Acute) Bilateral knee pain (Acute) Morbid obesity with BMI of 45.0-49.9, adult (Acute) Chronic pain syndrome (Acute) Osteoarthritis of knees, bilateral (Acute) Spondylosis of lumbar joint (Acute) Asthma (Acute) Environmental allergies (Acute) Osteoarthritis of knees, bilateral (Acute) Past Medical History Medical History (Updated 08/12/22 @ 15:17 by Ibeth Dangelo RN) Bleeding disorder COVID-19 Gout High cholesterol History of gastric ulcer Hypertension Lab test positive for detection of COVID-19 virus (~11/2019) Left inguinal hernia (~2013) On anticoagulant therapy On beta christina at home SANDEE (obstructive sleep apnea) Osteoarthritis of knees, bilateral Family History Family History Father Hx of diabetes insipidus Mother No problems noted. Family history of problems with anesthesia: No Surgical History Surgical History H/O umbilical hernia repair (07/25/06) Hx of endoscopy S/P partial hysterectomy (11/10/18) History of Problems with Anesthesia: No Social History Social History Alcohol intake: never Patient Tobacco Use Status: Never used Tobacco e-Cigarette/Vaping Use: Never Used Second Hand Smoke Exposure: No Are you DNR?: No Advance Directives: No Advance Directives Information Provided: Yes Advance Directives Date on File: 01/24/21 Nutrition Risks: No Nutritional Risk Meds Allergies Allergy/AdvReac Type Severity Reaction Status Date / Time aspirin AdvReac Mild mild Verified 08/08/22 10:28 vaginal bleeding Home Medications Medication Instructions Recorded Confirmed Last Taken Type albuterol sulfate 90 mcg/actuation 2 puff inhalation Q6H PRN 04/27/20 08/08/22 08/01/22 History aerosol inhaler (ProAir HFA) Shortness Of Breath cetirizine 10 mg tablet 10 mg PO DAILY 04/27/20 08/08/22 08/01/22 History docusate sodium 100 mg capsule 100 mg PO DAILY 04/27/20 08/08/22 08/01/22 History (DOK) duloxetine 30 mg capsule,delayed 30 mg PO DAILY 04/27/20 08/08/22 08/01/22 History release metoprolol tartrate 50 mg tablet 50 mg PO DAILY 04/27/20 08/08/22 08/01/22 History montelukast 10 mg tablet 10 mg PO DAILY 04/27/20 08/08/22 08/01/22 History clonidine HCl 0.1 mg tablet 0.1 mg PO BID 06/05/20 08/08/22 08/01/22 History apixaban 5 mg tablet (Eliquis) 5 mg PO BID 06/28/20 08/08/22 07/28/22 History atorvastatin 40 mg tablet 40 mg PO BEDTIME 06/28/20 08/08/22 08/01/22 History losartan 100 mg tablet 100 mg PO DAILY 06/28/20 08/08/22 08/01/22 History topiramate 25 mg tablet (Topamax) 50 mg PO DAILY 01/11/21 08/08/22 08/01/22 History topiramate 50 mg tablet (Topamax) 50 mg PO BID 01/17/21 08/08/22 08/01/22 History furosemide 20 mg tablet 10 mg PO QAM 12/25/21 08/08/22 08/01/22 History topiramate 100 mg tablet 100 mg PO BEDTIME 12/25/21 08/08/22 08/01/22 History cyanocobalamin (vitamin B-12) 500 500 mcg PO QAM 01/08/22 08/08/2208/01/23 History mcg tablet ergocalciferol (vitamin D2) 1,250 1,250 mcg PO QWEEK 01/08/22 08/08/22 08/01/22 History mcg (50,000 unit) capsule ferrous sulfate 325 mg (65 mg 325 mg PO QAM 01/08/22 08/08/22 08/01/22 History iron) tablet (FeroSul) omeprazole 20 mg capsule,delayed 20 mg PO QAM 01/08/22 08/08/22 08/01/22 History release Exam Exam Date and Time: August 15, 2022 1333 Pertinent Lab Results Pertinent Lab Results: Laboratory Tests 04/17/22 14:14 WBC 12.1 H Hgb 12.7 Hct 38.9 Plt Count 429 H Assessment and Plan Assessment Anesthesia Assessment: Chart Reviewed Final Anesthetic Review Family History of Problems with Anesthesia: No History of Problems with Anesthesia: No Documented by User: Anastasia Hope MD 08/16/22 12:11 [facility] Past Medical History Medical History (Updated 08/12/22 @ 15:17 by Ibeth Dangelo RN) Bleeding disorder COVID-19 Gout High cholesterol History of gastric ulcer Hypertension Lab test positive for detection of COVID-19 virus (~11/2019) Left inguinal hernia (~2013) On anticoagulant therapy On beta christina at home SANDEE (obstructive sleep apnea) Osteoarthritis of knees, bilateral Family History Family History Father Hx of diabetes insipidus Mother No problems noted. Surgical History Surgical History H/O umbilical hernia repair (07/25/06) Hx of endoscopy S/P partial hysterectomy (11/10/18) Social History Social History Alcohol intake: never Patient Tobacco Use Status: Never used Tobacco e-Cigarette/Vaping Use: Never Used Second Hand Smoke Exposure: No Are you DNR?: No Advance Directives: No Advance Directives Information Provided: Yes Advance Directives Date on File: 01/24/21 Nutrition Risks: No Nutritional Risk Meds Allergies Allergy/AdvReac Type Severity Reaction Status Date / Time aspirin AdvReac Mild mild Verified 08/08/22 10:28 vaginal bleeding Home Medications Medication Instructions Recorded Confirmed Last Taken Type albuterol sulfate 90 mcg/actuation 2 puff inhalation Q6H PRN 04/27/20 08/08/22 08/01/22 History aerosol inhaler (ProAir HFA) Shortness Of Breath cetirizine 10 mg tablet 10 mg PO DAILY 04/27/20 08/08/22 08/01/22 History docusate sodium 100 mg capsule 100 mg PO DAILY 04/27/20 08/08/22 08/01/22 History (DOK) duloxetine 30 mg capsule,delayed 30 mg PO DAILY 04/27/20 08/08/22 08/01/22 History release metoprolol tartrate 50 mg tablet 50 mg PO DAILY 04/27/20 08/08/22 08/01/22 History montelukast 10 mg tablet 10 mg PO DAILY 04/27/20 08/08/22 08/01/22 History clonidine HCl 0.1 mg tablet 0.1 mg PO BID 06/05/20 08/08/22 08/01/22 History apixaban 5 mg tablet (Eliquis) 5 mg PO BID 06/28/20 08/08/22 07/28/22 History atorvastatin 40 mg tablet 40 mg PO BEDTIME 06/28/20 08/08/22 08/01/22 History losartan 100 mg tablet 100 mg PO DAILY 06/28/20 08/08/22 08/01/22 History topiramate 25 mg tablet (Topamax) 50 mg PO DAILY 01/11/21 08/08/22 08/01/22 History topiramate 50 mg tablet (Topamax) 50 mg PO BID 01/17/21 08/08/22 08/01/22 History furosemide 20 mg tablet 10 mg PO QAM 12/25/21 08/08/22 08/01/22 History topiramate 100 mg tablet 100 mg PO BEDTIME 12/25/21 08/08/22 08/01/22 History cyanocobalamin (vitamin B-12) 500 500 mcg PO QAM 01/08/22 08/08/22 08/01/22 History mcg tablet ergocalciferol (vitamin D2) 1,250 1,250 mcg PO QWEEK 01/08/22 08/08/22 08/01/22 History mcg (50,000 unit) capsule ferrous sulfate 325 mg (65 mg 325 mg PO QAM 01/08/22 08/08/22 08/01/22 History iron) tablet (FeroSul) omeprazole 20 mg capsule,delayed 20 mg PO QAM 01/08/22 08/08/22 08/01/22 History release Exam Airway Mallampati Class: II (Missing couple nothing loose) TM Dist: >3cm Neck ROM: Full Heart: rrr Lungs: cta Assessment and Plan Assessment Anesthesia Assessment: Anesthesia Plan Discussed and Chart Reviewed Final Anesthetic Review NPO: Yes ASA Class: III Final Preanesthetic Review: No Changes in Pt Med Stat, Meds/Allgs Chart Reviewed and Consent Obtained/Reviewed Patient Risk: Intermediate Procedure Risk: Intermediate Anesthetic Plan Anesthetic Plan: GA Disposition: Standard PACU
[2022-08-16] VITALS (12 sets, daily range): BP systolic 100–143; BP diastolic 69–88; PULSE 59–70; RESP 11–18; TEMP 36.2–36.7; O2SAT 93–99; BMI 48.2
--- NOTE | ~2022-08-16 | FL_ITS ---
EXAMINATION: XR FLUOROSCOPY WITH IMAGES CLINICAL INFORMATION: Leg pain. Pain management procedure. COMPARISON: Fluoroscopic spot views 08/01/2022 TECHNIQUE: Fluoroscopy Supervised By: Dr. Sukhi Soriano. Fluoroscopy Time: 0.8. Cumulative Dose: 5.99 mGy. DAP: 1.59 Gycm2. Images: 2. FINDINGS: Stimulator lead electrode is demonstrated ascending adjacent to medial side proximal tibia. The tip is distal to the medial tibial plateau at the proximal medial metaphysis. No kinking or defect seen in the leads. There are degenerative changes knee joint. Spurring patella. FL/FL guidance in OR IMPRESSION: Fluoroscopy for pain management procedure.
--- NOTE | 2022-08-16 11:57 | MHC.SHP ---
Pre-Procedural Eval Section A Date of Service: 08/16/22 The patient is an INPATIENT: No Changes since office visit: Yes Patient answered all questions The History & Physical has been completed within 30 days and I have reviewed it.: No Section B Chief Complaint: Pain in right knee,Pain in left knee Details of Present Illness: as above Relevant Family History (Specify if Yes): No Relevant Social History: None Present Medications: None Medical History: No relevant PMH History of Previous Operations: No relevant previous surgery Allergies: Allergies Allergy/AdvReac Type Severity Reaction Status Date / Time aspirin AdvReac Mild mild Verified 08/08/22 10:28 vaginal bleeding Review of Systems Sugical H&P ROS: Negative: Cardiovascular, Respiratory, Neurological, Psychiatric, Hem-Onc, Allergic/Immunologic, Gastrointestinal, Genitourinary, Musculoskeletal, Integumentary, Endocrine and Eyes/Ears/Nose/Throat and Yes, Specify: Constitution (obesity) Exam Surgical H&P Exam: Normal: HEENT, Normal: Heart, Normal: Lungs, Normal: Extremities, Normal: Skin and Normal: Neurological and Significant Findings: Abdomen (enlarged) Plan Diagnosis/Plan: Unchanged I have reviewed the history and physical and performed a pertinent physical examination on my patient. No changes have occurred unless specified. Time Spent With Patient Time: Total time managing care of this patient today ____ minutes.
[2022-08-16] MEDS: Lactated Ringers 1,000 ML 100 ML IVCONT (12:10)
--- NOTE | 2022-08-16 14:12 | P.BOP_ITS ---
Brief Operative Note Date of Service: 08/16/22 Pre-op diagnosis: CRPS left lower extremity, left knee pain Post-op diagnosis: same Procedure: Implantation of left infrapatellar saphenous PNS Stimwave . Implants: stimulating electrode Stimwave Surgeon: Sukhi oSriano MD Anesthesia: GLMA Was an Building Construction Superintendent used for this Procedure?: No Estimated blood loss (mL): 10 Condition: stable Disposition: PACU
--- NOTE | 2022-08-16 14:14 | P.OP_ITS ---
Operative Note Operative Note Date of Service: 08/16/22 Narrative: Implantation of the peripheral nerve stimulating wire stim wave in infrapatellar saphenous left position.? After obtaining informed consent the patient was brought to the operating room, she was positioned supine on the operating table, [employer] monitors were applied and GA with LMA was induced. ?? Time-out was performed delineating correct site, side, the nature of the procedure, patient's allergy, preoperative antibiotic.? All operating room staff was participating in OR time-out procedure.? The patient received cefazolin 3 g mg intravenously 10 minutes before the procedure The patient was positioned supine on the operating table with the left leg elevated on a gel bin.? ? The entire left leg from the mid thigh all the way down to the toes was prepped with ChloraPrep twice.? The foot was protected with the sterile foot cover and after that fenestrated full extremity drape was applied to the leg. Attention was concentrated on the?left ?INFRAPATELLAR SAPHENOUS NERVE.? Sterilely draped C-arm was brought over the operating field and sq picture of? left tibial bone was demonstrated on the screen.? The point of interest was delineated as the confluence of the metaphysis and diaphysis of the medial site of the tibial bone.?? 25 gauge 3-1/2 inch spinal needle was driven to the point of interest where the advancement of the medial line of the shaft of the tibial bone changed its direction and formed an angle.? The position of the needle in the projection of mid shaft of the bone was verified on the lateral view.? 8 cm below that needle in the projection of the medial shaft of the tibial bone local anesthetic was injected with ropivacaine 0.5 % mixture with lidocaine 2% into the skin.? At this point 3 cm incision was made to the skin using 10 blade scalpel.? Thorough hemostasis was obtained? using electrocautery.? The insertion of the 14 gauge introducer maluable needle was performed and advanced cephalad toward the projection of the 25 gauge needle in the plane corresponding to mid shaft of the tibial bone on lateral view and following silhouette of the medial tibial bone on the AP view.? When the introducer reached the vicinity of 22 gauge needle guitar wire was inserted into the introducer needle and spread on anterior posterior and lateral views alongside the medial border of the tibial bone on anterior posterior view and in the projection of the mid shaft of the bone on the lateral view.? Upon completion of the advancement of the guitar wire it was removed and stimulator catheter was inserted and advanced in the same fashion.? When the catheter reached adequate position following curvature of the medial metaphysis of the tibial bone on anterior posterior view and position in midline of the shaft of the tibial bone in lateral view the introducer needle was gently removed with care taken not to dislodge the stimulating catheter.? After that the driving stylet was removed from the stimulating catheter and thin copper wire stimulating element was inserted into the catheter.? The catheter was fixed to the? Subcutaneous fascia with 1 Tycron suture 0-0. ? After that 15 cm below that level another vertical incision was applied 3 cm long to medial surface of the ankle.? Thorough hemostasis was obtained. the 2 wounds were connected using tunneling device and the stimulating wire was dislodged into the ankle? wound.? After that the coil was formed at the end of the stimulating catheter the Patrizia clamp was used to create a pocket for the coil. the coil? was inserted into the pocket.? After that both wounds were irrigated with copious amount of vancomycin containing normal saline. 2-0 Polysorb suture was used to close both wounds and ? jarad were used to close the skin level. Bacitracin ointment was applied to the staple line.? Sterile dressing was applied using? Tegaderm tape. The patient tolerated procedure well she was? awaken and? taken outside of the operating room to recovery room for the recovery from anesthesia.
[2022-08-16] MEDS: oxyCODONE HCl Immed Release 5 MG TABLET 10 MG PO (14:38)
[2022-08-16] MEDS: Acetaminophen 1,000 MG/100 ML PIGGYBACK 400 MG IV (14:43)
[2022-08-16] MEDS: fentaNYL citrate/PF 100 MCG/2 ML VIAL 50 MCG IVPUSH ×2 (14:49→14:58)
== END 2022-08-16 16:06 | disposition home or self-care (01) ==
PROVIDERS: PCP Student in an Organized Health Care Education/Training Program; Visit Provider Anesthesiology
PROC: (CPT 64555; principal; 2022-08-16 13:30)
DX: M25.562 Pain in left knee (principal); G90.522 Complex regional pain syndrome I of left lower limb
CPT/HCPCS: 64555; C1787; C1816; J0131; J0690; J1100; J2250; J2405; J2795; J3010; J3370

== ENCOUNTER → 2022-08-22 08:16 | Outpatient (BNVA) | payer MEDICAID, SELFPAY | PROVIDERS: PCP Student in an Organized Health Care Education/Training Program; Visit Provider Anesthesiology | DX: M17.0 Bilateral primary osteoarthritis of knee (principal); M47.816 Spondylosis without myelopathy or radiculopathy, lumbar region; M25.561 Pain in right knee; M25.562 Pain in left knee; E66.01 Morbid (severe) obesity due to excess calories; Z68.42 Body mass index [BMI] 45.0-49.9, adult; G89.4 Chronic pain syndrome | CPT/HCPCS: 99212 ==

== ENCOUNTER → 2022-08-29 08:29 | Outpatient (BNVA) | payer MEDICAID, SELFPAY | PROVIDERS: PCP Student in an Organized Health Care Education/Training Program; Visit Provider Anesthesiology | DX: M25.561 Pain in right knee (principal); M25.562 Pain in left knee; M47.816 Spondylosis without myelopathy or radiculopathy, lumbar region; M17.0 Bilateral primary osteoarthritis of knee; G89.4 Chronic pain syndrome; E66.01 Morbid (severe) obesity due to excess calories; Z68.42 Body mass index [BMI] 45.0-49.9, adult | CPT/HCPCS: 99212 ==

== ENCOUNTER 2022-09-10 06:12 | Outpatient (REF) | payer MEDICAID, SELFPAY ==
--- NOTE | ~2022-09-10 | FL_ITS ---
EXAMINATION: XR FLUOROSCOPY WITH IMAGES CLINICAL INFORMATION: M47.816 - Spondylosis without myelopathy or radiculopathy, lumbar region COMPARISON: MR lumbar spine 10/18/2019 TECHNIQUE: Fluoroscopy Supervised By: Dr. Sukhi Soriano. Fluoroscopy Time: 0.4 minutes. Cumulative Dose: 51.0 mGy. DAP: 11.1 Gycm2. Images: 4. FINDINGS: There are spinal needles overlying the outer left L2, L3, L4, and L5 neural foramen. There is paraspinal contrast and contrast in the respective nerve sheaths. Probable early transforaminal epidural extension. No visible vascular communication. FL/FL guidance in treatment room IMPRESSION: Fluoroscopy for pain management procedures.
== END 2022-09-10 06:13 | disposition home or self-care (01) ==
LOC: CF 06:12
PROVIDERS: Visit Provider Anesthesiology
DX: M47.816 Spondylosis without myelopathy or radiculopathy, lumbar region (principal); G58.9 Mononeuropathy, unspecified
CPT/HCPCS: 64493; 64494; J2795

== ENCOUNTER → 2022-09-16 10:52 | Outpatient (BNVA) | payer MEDICAID, SELFPAY | PROVIDERS: PCP Student in an Organized Health Care Education/Training Program; Visit Provider Nurse Practitioner Family ==

== ENCOUNTER 2022-09-24 09:29 | Outpatient (REF) | payer MEDICAID, SELFPAY ==
--- NOTE | ~2022-09-24 | XR_ITS ---
EXAMINATION: XR HAND, LEFT CLINICAL INFORMATION: Pain. COMPARISON: None available. TECHNIQUE: PA, lateral, and oblique views of the left hand. FINDINGS: The bones and soft tissues are normal. No fracture. Alignment is anatomic. Joint spaces are maintained. No erosions or soft tissue calcifications. XR/XR hand LT min 3V IMPRESSION: Unremarkable left hand.
== END 2022-09-24 09:30 | disposition home or self-care (01) ==
LOC: HO.HOSX 09:29
PROVIDERS: Visit Provider Orthopaedic Surgery
DX: M65.342 Trigger finger, left ring finger (principal); M19.042 Primary osteoarthritis, left hand; Z86.73 Personal history of transient ischemic attack (TIA), and cerebral infarction without residual deficits
CPT/HCPCS: 20550; 73130; 99202; J1100

== ENCOUNTER 2022-10-05 15:19 | Observation (INO) | payer MEDICAID, SELFPAY ==
--- NOTE | ~2022-10-05 | CT_ITS ---
EXAMINATION: CT ABDOMEN AND PELVIS WITHOUT CONTRAST CLINICAL INFORMATION: Right upper quadrant/flank pain COMPARISON: None available. TECHNIQUE: Multidetector volumetric imaging was performed from the superior aspect of the liver through the pubic symphysis. Sagittal and coronal reformatted images were obtained on the technologist's workstation. This CT examination was performed using dose optimization techniques as appropriate, variously including the following: *Automated exposure control *Adjustment of mA and/or kV according to patient size (this includes techniques or standardized protocols for targeted exams where dose is matched to indication/reason for exam; i.e. extremities or head) *Use of iterative reconstruction technique DLP: 963 mGy-cm FINDINGS: LUNG BASES: The visualized lung bases are unremarkable. LIVER, GALLBLADDER, AND BILIARY TREE: The liver is slightly enlarged. The liver is normal in attenuation.. No focal hepatic lesion or biliary ductal dilatation is present. The gallbladder is unremarkable with no evidence of radiopaque gallstones, gallbladder wall thickening, or obvious pericholecystic inflammatory changes. PANCREAS: Unremarkable. SPLEEN: Unremarkable. ADRENAL GLANDS: Unremarkable. KIDNEYS AND URETERS: Small bilateral nonobstructing renal stones. Left renal cysts. No imaging follow-up recommended. BLADDER: Unremarkable. GASTROINTESTINAL TRACT: Diverticulosis of the colon. No evidence of diverticulitis. The small and large bowel are unremarkable. The appendix is unremarkable. ABDOMINAL WALL: No significant hernia is appreciated. LYMPH NODES: Normal. VASCULAR: Unremarkable. PELVIC VISCERA: Unremarkable. OSSEOUS STRUCTURES: Unremarkable. CT/CT abdomen pelvis wo IV con IMPRESSION: Small bilateral nonobstructing renal stones. Slightly enlarged liver. Diverticulosis. No evidence of diverticulitis. Fleischner guidelines were followed.
--- NOTE | ~2022-10-05 | CT_ITS ---
EXAMINATION: CT HEAD WITHOUT CONTRAST CLINICAL INFORMATION: Seizures COMPARISON: Previous head CT and brain MRI December 2020 TECHNIQUE: Contiguous axial imaging was performed from the skull base to vertex without intravenous administration of contrast. This CT examination was performed using dose optimization techniques as appropriate, variously including the following: *Automated exposure control *Adjustment of mA and/or kV according to patient size (this includes techniques or standardized protocols for targeted exams where dose is matched to indication/reason for exam; i.e. extremities or head) *Use of iterative reconstruction technique DLP: 820 mGy-cm FINDINGS: There is no evidence of an extra-axial collection. There is no evidence of intra or extra-axial hemorrhage. The ventricles and extra-axial CSF spaces are appropriate. Yarbrough-white matter differentiation is normal. No mass, mass effect or infarct. Review of bone windows is normal. Visualized paranasal sinuses, mastoid air cells and middle ears are clear. CT/CT head/brain wo IV con IMPRESSION: Unremarkable exam.
[2022-10-05 15:31] VITALS: BP 140/81; PULSE 95; RESP 16; TEMP 36.8; O2SAT 98; BMI 43.9
--- NOTE | 2022-10-05 15:55 | ECG_ITS ---
Test Reason : seizure Blood Pressure : / mmHG Vent. Rate : 067 BPM Atrial Rate : 067 BPM P-R Int : 154 ms QRS Dur : 098 ms QT Int : 416 ms P-R-T Axes : 052 -40 009 degrees QTc Int : 439 ms Normal sinus rhythm Left axis deviation Abnormal ECG When compared with ECG of 22-FEB-2019 15:15, No significant change was found Referred By: Roosevelt Sheldon Electronically Signed By:EVER VASQUEZ
[2022-10-05 16:00] VITALS: BP 149/85; PULSE 70; RESP 18; O2SAT 96
[2022-10-05 16:01] LABS: MANUAL DIFF FLAG NO
[2022-10-05 16:07] LABS: Glucose, Whole Blood 161 mg/dL (60-115)
[2022-10-05 16:09] LABS: Appearance Urine Clear; Color Urine Dark Yellow; Glucose Urine UA Negative (Negative); Leukocyte Esterase Urine Trace (Negative); Nitrite Urine Negative (Negative); Specific Gravity - Urine >= 1.030 (1.005-1.025); UMIC TRIGGER UACC YES; Urine Blood Negative (Negative); Urine Ketones Negative (Negative); Urine Protein 30 (1+) mg/dL (Neg-Trace)
--- NOTE | 2022-10-05 16:10 | PC.NURSE ---
pt walked from waiting room to ED room. While being triaged pt had several short seizure-like episodes that may be psudo seizures. Pt reports numbness in right sided and 10/10 right flank pain. Pt O2 sat remains stable throughout seizures 96+ RA. After several minuets pt is able to talk to nurses and doctor.
[2022-10-05 16:11] LABS: Basophils Percent Auto 0.4 % (0-2); Eosinophils Absolute Auto 0.3 X10*3/uL (0.0-0.4); Eosinophils Percent Auto 2.3 % (0-4); Hematocrit 38.5 % (37.0-47.0); Hemoglobin 12.6 g/dl (12.0-16.0); Imm Gran Abs Auto 0.03 X10*3/uL (0.00-0.03); Imm Gran Pct Auto 0.3 % (0.0-0.4); Lymphocytes Absolute Auto 3.4 X10*3/uL (1.2-4.9); Lymphocytes Percent Auto 29.6 % (20-40); Mean Corpuscular HGB Conc 32.7 g/dl (31.0-35.0); Mean Corpuscular Hemoglobin 28.4 pg (27.0-33.0); Mean Corpuscular Volume 86.7 fL (80.0-98.0); Mean Platelet Volume 10.7 fL (9.4-12.3); Monocytes Absolute Auto 0.9 X10*3/uL (0.1-1.2); Monocytes Percent Auto 7.4 % (2-11); Neutrophils Absolute Auto 6.9 x10*3/uL (2.0-8.3); Platelet Count 407 X10*3/uL (160-400); Red Blood Count 4.44 X10*6/uL (4.20-5.50); Red Cell Distribution Width 13.7 % (11.0-16.0); White Blood Count 11.4 X10*3/uL (4.8-10.8)
--- NOTE | 2022-10-05 16:11 | ED_ITS ---
HPI - Seizure General Chief Complaint: Seizure Stated Complaint: seizures, numbness on R side Time Seen by Provider: 10/05/22 15:59 Source: patient Mode of arrival: EMS Limitations: no limitations History of Present Illness HPI Narrative: Patient Comes to the emergency room via EMS Complaining of multiple seizures. Patient states that all these week she has had up to 5 seizures daily . Patient takes topiramate 100 mg daily, patient states that she is compliant with her medication. Also, patient complaining of right upper quadrant pain has been present for 1 week. Related Data Home Medications Medication Instructions Recorded Confirmed albuterol sulfate 90 mcg/actuation 2 puff inhalation Q6H PRN 04/27/20 08/22/22 aerosol inhaler (ProAir HFA) Shortness Of Breath cetirizine 10 mg tablet 10 mg PO DAILY 04/27/20 08/22/22 docusate sodium 100 mg capsule 100 mg PO DAILY 04/27/20 08/22/22 (DOK) duloxetine 30 mg capsule,delayed 30 mg PO DAILY 04/27/20 08/22/22 release metoprolol tartrate 50 mg tablet 50 mg PO DAILY 04/27/20 08/22/22 montelukast 10 mg tablet 10 mg PO DAILY 04/27/20 08/22/22 clonidine HCl 0.1 mg tablet 0.1 mg PO BID 06/05/20 08/22/22 apixaban 5 mg tablet (Eliquis) 5 mg PO BID 06/28/20 08/22/22 atorvastatin 40 mg tablet 40 mg PO BEDTIME 06/28/20 08/22/22 losartan 100 mg tablet 100 mg PO DAILY 06/28/20 08/22/22 topiramate 25 mg tablet (Topamax) 50 mg PO DAILY 01/11/21 08/22/22 topiramate 50 mg tablet (Topamax) 50 mg PO BID 01/17/21 08/22/22 furosemide 20 mg tablet 10 mg PO QAM 12/25/21 08/22/22 topiramate 100 mg tablet 100 mg PO BEDTIME 12/25/21 08/22/22 cyanocobalamin (vitamin B-12) 500 500 mcg PO QAM 01/08/22 08/22/22 mcg tablet ergocalciferol (vitamin D2) 1,250 1,250 mcg PO QWEEK 01/08/22 08/22/22 mcg (50,000 unit) capsule ferrous sulfate 325 mg (65 mg 325 mg PO QAM 01/08/22 08/22/22 iron) tablet (FeroSul) omeprazole 20 mg capsule,delayed 20 mg PO QAM 01/08/22 08/22/22 release amlodipine 5 mg tablet 5 mg PO DAILY 09/24/22 Previous Rx's Medication Instructions Recorded fluticasone propionate 115 2 puff inhalation BID 30 days #1 ea 04/17/22 mcg-salmeterol 21 mcg/actuation HFA inhaler (Advair HFA) Allergies Allergy/AdvReac Type Severity Reaction Status Date / Time aspirin AdvReac Mild mild Verified 09/24/22 16:19 vaginal bleeding Review of Systems Review of Systems: Constitutional : No Weight loss, No Fever, No Chills, No Night Sweats, No Fatigue, No Malaise ENT/Mouth : No Hearing loss, No Ear Pain, No Nasal Congestion, No Sinus Pain, No Hoarseness, No sore throat, No Rhinorrhea, No Swallowing Difficulty Eyes: No Eye Pain, No Swelling, No Redness, No Foreign Body, No Discharge, No Vision Changes Cardiovascular : No Chest Pain, No SOB, No Dyspnea on Exertion, No Orthopnea, No Edema, No Palpitations Respiratory : No Cough, No Sputum, No Wheezing, No Smoke Exposure, No Dyspnea Gastrointestinal : No Nausea, No Vomiting, No Diarrhea, No Constipation, playing of right upper quadrant pain, No Hematochezia, No Melena Genitourinary : no irregular bleeding, No Dysuria, No Urinary Frequency, No Hematuria, No Urinary Incontinence, No Urgency, No Flank Pain, No Urinary Flow Changes, No Hesitancy Musculoskeletal : No joint pain, No Myalgias, No Joint Swelling Skin : No Skin Lesions, No rash Neuro : No Weakness, No Numbness, No Paresthesias, No Loss of Consciousness, No Dizziness, No Headache, complaining of multiple daily seizures for about a week Psych : No Anxiety/Panic, No Depression, No SI/HI/AH/VH, No Social Issues, Heme/Lymph: No Bruising, No Bleeding,No Lymphadenopathy Endocrine : No Polyuria, No Polydipsia, No Temperature Intolerance PMFSH Past Medical History Medical History Bleeding disorder COVID-19 Gout High cholesterol History of gastric ulcer Hypertension Lab test positive for detection of COVID-19 virus (~11/2019) Left inguinal hernia (~2013) On anticoagulant therapy On beta christina at home SANDEE (obstructive sleep apnea) Osteoarthritis of knees, bilateral Surgical History H/O umbilical hernia repair (07/25/06) History of back surgery Hx of endoscopy S/P partial hysterectomy (11/10/18) Family History Family History Father Hx of diabetes insipidus Mother No problems noted. Social History Social History (Updated 09/24/22 @ 16:19 by Funmi Cole Kimber) Alcohol intake: never Patient Tobacco Use Status: Never used Tobacco Smoked in Last 30 Days: No e-Cigarette/Vaping Use: Never Used Second Hand Smoke Exposure: No Use of substances other than those prescribed or required for medical reasons: No Advance Directives: Yes Advance Directives on File: Yes Advance Directives Date on File: 01/24/21 Current occupational status: unemployed Current occupation: right handed Physical Exam Vital Signs: Vital Signs: Last Vital Signs Temp 98.0 F 10/05/22 20:00 Pulse 60 10/05/22 20:00 Resp 16 10/05/22 20:00 BP 130/74 10/05/22 20:00 Pulse Ox 98 10/05/22 20:00 O2 Del Method Room Air 10/05/22 20:00 BMI result Body Mass Index 43.9 Const: Other: Appearance: Alert. Oriented X3. No acute distress. Eyes: Pupils equal, round and reactive to light. ENT: Pharynx normal. Neck: Normal inspection. Neck supple. No lymph nodes noted. No crepitus CVS: Normal heart rate and rhythm. Pulses normal. Normal S1 and S2 Respiratory: No respiratory distress. Breath sounds normal. No Wheezing. No rales Abdomen: Soft and nontender. No rigidity. No distention. Skin: Skin warm and dry. Normal skin color. Normal skin turgor. Extremities: No lower extremity edema. No Lacerations. No Rash Neuro: Oriented X 3. No motor deficit. No sensory deficit. Moving all extremities. No slurred speech. CN 2 through 12 grossly intact Psych: calm, cooperative, normal affect Medications Administered Discontinued Medications Generic Name Dose Route Start Last Admin Trade Name Carroll PRN Reason Stop Dose Admin Lorazepam 2 mg 10/05/22 16:27 10/05/22 16:34 Lorazepam 2 Mg/Ml Vial IVPUSH 10/05/22 16:28 2 mg ONCE ONE Administration Medical Decision Making Medical Decision Making [facility] Narrative: -when I was doing the physical exam, patient did not have any abdominal pain on palpation -patient has history of chronic leukocytosis. LFTs relatively normal, alk-phos slightly bumped but not significantly. Negative Cooper sign on exam -patient was getting her CT scan done, I was informed by the CT scan technicians that the patient was having a seizure. By the time I got there, the seizure was over, patient did not seem significantly postictal, patient did answer questions appropriately -patient states that she has been having multiple seizures, on average 5 every day for the last week. Patient states this is unusual for her. I do not believe that the patient is having tonic clonic seizures, possible focal seizures? Versus pseudoseizures? -patient was given 2 mg IV of Ativan, patient has not had any neurologic events since then. -I discussed the above-mentioned with Dr. Best, patient will be staying in the hospital for observation. Differential Diagnosis Differential Diagnoses: The differential diagnosis associated with the presentation includes (Differential diagnosis not limited to tonic clonic seizures, pseudoseizures, focal seizures) Admission/Observation Consideration of admission/observation: Escalation of care including admission/observation considered Consult Healthcare Provider Management of the patient was discussed with: Hospitalist Lab Data [facility] Lab Attestation statement: I reviewed the patient's lab results. 10/05/22 15:56 10/05/22 15:56 Labs: Lab Results 10/05/22 10/05/22 10/05/22 Range/Units 15:56 15:56 15:59 WBC 11.4 H (4.8-10.8) X10*3/uL RBC 4.44 (4.20-5.50) X10*6/uL Hgb 12.6 (12.0-16.0) g/dl Hct 38.5 (37.0-47.0) % MCV 86.7 (80.0-98.0) fL MCH 28.4 (27.0-33.0) pg MCHC 32.7 (31.0-35.0) g/dl RDW 13.7 (11.0-16.0) % Plt Count 407 H (160-400) X10*3/uL MPV 10.7 (9.4-12.3) fL Immature Gran % (Auto) 0.3 (0.0-0.4) % Neut % (Auto) 60.0 (45-73) % Lymph % (Auto) 29.6 (20-40) % [place] % (Auto) 7.4 (2-11) % Eos % (Auto) 2.3 (0-4) % Baso % (Auto) 0.4 (0-2) % Lymph # (Auto) 3.4 (1.2-4.9) X10*3/uL Teller # (Auto) 0.9 (0.1-1.2) X10*3/uL Eos # (Auto) 0.3 (0.0-0.4) X10*3/uL Baso # (Auto) 0.0 (0.0-0.2) X10*3/uL Abs Immat Gran (auto) 0.03 (0.00-0.03) X10*3/uL Absolute Neuts (auto) 6.9 (2.0-8.3) x10*3/uL Absolute Nucleated RBC 0.000 (0.0-0.012) X10*3/uL Nucleated RBC % (auto) 0.0 (0.0-0.2) /100WBC Sodium 142 (135-145) mmol/L Potassium 4.0 (3.3-5.1) mmol/L Chloride 108 (96-108) mmol/L Carbon Dioxide 26 (22-29) mmol/L Anion Gap 12 (12-20) BUN 25 H (9-16) mg/dL Creatinine 0.82 (0.5-1.4) mg/dL Estim Creat Clear Calc 121.4 Estimated GFR > 60 POC Glucose 161 H (60-115) mg/dL Random Glucose 130 H (60-115) mg/dL Lactic Acid (0.5-2.0) mmol/L Calcium 9.2 (8.4-10.2) mg/dL Magnesium 1.9 (1.6-2.6) mg/dL Total Bilirubin 0.3 (0.0-1.0) mg/dL Direct Bilirubin 0.1 (0.0-0.5) mg/dL AST 25 (5-31) U/L ALT 29 (0-31) U/L Alkaline Phosphatase 202 H (39-117) U/L Total Protein 7.3 (6.5-8.0) g/dL Albumin 4.3 (3.5-5.0) g/dL Urine Color Urine Appearance Urine pH (5.0-9.0) Ur Specific Stem (1.005-1.025) Urine Protein (Neg-Trace) mg/dL Urine Glucose (UA) (Negative) mg/dL Urine Ketones (Negative) mg/dL Urine Blood (Negative) Urine Nitrite (Negative) Ur Leukocyte Esterase (Negative) Urine RBC (0-2) /HPF Urine WBC (0-5) /HPF Ur Squamous Epith Cells (0-2) /HPF Urine Bacteria (None Seen) Hyaline Casts (0-2) /LPF 10/05/22 10/05/22 Range/Units 16:03 16:14 WBC (4.8-10.8) X10*3/uL RBC (4.20-5.50) X10*6/uL Hgb (12.0-16.0) g/dl Hct (37.0-47.0) % MCV (80.0-98.0) fL MCH (27.0-33.0) pg MCHC (31.0-35.0) g/dl RDW (11.0-16.0) % Plt Count (160-400) X10*3/uL MPV (9.4-12.3) fL Immature Gran % (Auto) (0.0-0.4) % Neut % (Auto) (45-73) % Lymph % (Auto) (20-40) % [place]eller % (Auto) (2-11) % Eos % (Auto) (0-4) % Baso % (Auto) (0-2) % Lymph # (Auto) (1.2-4.9) X10*3/uL [place]eller # (Auto) (0.1-1.2) X10*3/uL Eos # (Auto) (0.0-0.4) X10*3/uL Baso # (Auto) (0.0-0.2) X10*3/uL Abs Immat Gran (auto) (0.00-0.03) X10*3/uL Absolute Neuts (auto) (2.0-8.3) x10*3/uL Absolute Nucleated RBC (0.0-0.012) X10*3/uL Nucleated RBC % (auto) (0.0-0.2) /100WBC Sodium (135-145) mmol/L Potassium (3.3-5.1) mmol/L Chloride (96-108) mmol/L Carbon Dioxide (22-29) mmol/L Anion Gap (12-20) BUN (9-16) mg/dL Creatinine (0.5-1.4) mg/dL Estim Creat Clear Calc Estimated GFR POC Glucose (60-115) mg/dL Random Glucose (60-115) mg/dL Lactic Acid 1.3 (0.5-2.0) mmol/L Calcium (8.4-10.2) mg/dL Magnesium (1.6-2.6) mg/dL Total Bilirubin (0.0-1.0) mg/dL Direct Bilirubin (0.0-0.5) mg/dL AST (5-31) U/L ALT (0-31) U/L Alkaline Phosphatase (39-117) U/L Total Protein (6.5-8.0) g/dL Albumin (3.5-5.0) g/dL Urine Color Dark Yellow Urine Appearance Clear Urine pH 6.0 (5.0-9.0) Ur Specific Stem >= 1.030 H (1.005-1.025) Urine Protein 30 (1+) H (Neg-Trace) mg/dL Urine Glucose (UA) Negative (Negative) mg/dL Urine Ketones Negative (Negative) mg/dL Urine Blood Negative (Negative) Urine Nitrite Negative (Negative) Ur Leukocyte Esterase Trace H (Negative) Urine RBC 3-5 H (0-2) /HPF Urine WBC 6-10 H (0-5) /HPF Ur Squamous Epith Cells 11-20 (0-2) /HPF Urine Bacteria Trace (None Seen) Hyaline Casts 0-2 (0-2) /LPF Independent Interpretation I performed an independent interpretation of an: CT Scan (My interpretation of CT scan of the head: No intracranial bleed, no obvious masses visualized) Radiology Impression Discussion of test interpretation with radiology: I have reviewed the radiologist's reading. Radiologist Impression: CT scan of the headThere is no evidence of an extra-axial collection. There is no evidence of intra or extra-axial hemorrhage. The ventricles and extra-axial CSF spaces are appropriate. Yarbrough-white matter differentiation is normal. No mass, mass effect or infarct. Review of bone windows is normal. Visualized paranasal sinuses, mastoid air cells and middle ears are clear. ? CT/CT head/brain wo IV con IMPRESSION: Unremarkable exam. FINDINGS: LUNG BASES: The visualized lung bases are unremarkable.? LIVER, GALLBLADDER, AND BILIARY TREE: The liver is slightly enlarged. The liver is normal in attenuation.. No focal hepatic lesion or biliary ductal dilatation is present. The gallbladder is unremarkable with no evidence of radiopaque gallstones, gallbladder wall thickening, or obvious pericholecystic inflammatory changes.? PANCREAS: Unremarkable.? SPLEEN: Unremarkable.? ADRENAL GLANDS: Unremarkable.? KIDNEYS AND URETERS: Small bilateral nonobstructing renal stones. Left renal cysts. No imaging follow-up recommended. BLADDER: Unremarkable.? GASTROINTESTINAL TRACT: Diverticulosis of the colon. No evidence of diverticulitis. The small and large bowel are unremarkable. The appendix is unremarkable.? ABDOMINAL WALL: No significant hernia is appreciated.? LYMPH NODES: Normal. VASCULAR: Unremarkable. PELVIC VISCERA: Unremarkable.? OSSEOUS STRUCTURES: Unremarkable.? CT/CT abdomen pelvis wo IV con IMPRESSION: Small bilateral nonobstructing renal stones. Slightly enlarged liver. Diverticulosis. No evidence of diverticulitis. Critical Care Time Critical Care Time Critical Care Time: Yes Total Critical Care Time: 60 Attestation: I have personally provided critical care time. Time includes review of lab data, radiology results, discussion with consultants, and monitoring for potential d ecompensation. Intervention performed as documented. Discharge Plan Discharge Clinical Impression: Seizures Patient Disposition: Admitted as Observation Prescriptions: No Action clonidine HCl 0.1 mg tablet 0.1 mg PO BID topiramate [Topamax] 50 mg tablet 50 mg PO BID albuterol sulfate [ProAir HFA] 90 mcg/actuation HFA aerosol inhaler 2 puff inhalation Q6H PRN (Reason: Shortness Of Breath) cetirizine 10 mg tablet 10 mg PO DAILY docusate sodium [DOK] 100 mg capsule 100 mg PO DAILY duloxetine 30 mg capsule,delayed release(DR/EC) 30 mg PO DAILY montelukast 10 mg tablet 10 mg PO DAILY metoprolol tartrate 50 mg tablet 50 mg PO DAILY topiramate [Topamax] 25 mg tablet 50 mg PO DAILY atorvastatin 40 mg tablet 40 mg PO BEDTIME Eliquis 5 mg tablet 5 mg PO BID losartan 100 mg tablet 100 mg PO DAILY cyanocobalamin (vitamin B-12) 500 mcg tablet 500 mcg PO QAM ferrous sulfate [FeroSul] 325 mg (65 mg iron) tablet 325 mg PO QAM omeprazole 20 mg capsule,delayed release(DR/EC) 20 mg PO QAM ergocalciferol (vitamin D2) 1,250 mcg (50,000 unit) capsule 1,250 mcg PO QWEEK furosemide 20 mg tablet 10 mg PO QAM topiramate 100 mg tablet 100 mg PO BEDTIME Advair HFA 115-21 mcg/actuation HFA aerosol inhaler 2 puff inhalation BID 30 Days Qty: 1 6RF amlodipine 5 mg tablet 5 mg PO DAILY
[2022-10-05 16:14] LABS: Bacteria Urine Trace (None Seen); Hyaline Casts Urine 0-2 /LPF (0-2); UACC Culture Trigger YES
[2022-10-05 16:28] LABS: Lactic Acid 1.3 mmol/L (0.5-2.0)
--- NOTE | 2022-10-05 16:30 | PC.NURSE ---
pt went to CT scan. Gilberto davis called staff bc pt presented with what appeared to be a seizure. MD arrived in CT and lifted arm above head and dropped arm toward pts face. Pt was able to move arm away and prevent arm from hitting face.
[2022-10-05] MEDS: LORazepam 2 MG/ML VIAL IVPUSH (16:34)
--- NOTE | 2022-10-05 16:40 | PC.NURSE ---
pt vitals stable, no seizure like episodes or activity since returning from CT scan. medicated per order
[2022-10-05 17:08] LABS: Alanine Aminotransferase 29 U/L (0-31); Albumin Level 4.3 g/dL (3.5-5.0); Alkaline Phosphatase 202 U/L (39-117); Anion Gap 12 (12-20); Aspartate Amino Transferase 25 U/L (5-31); Bilirubin Direct 0.1 mg/dL (0.0-0.5); Bilirubin Total 0.3 mg/dL (0.0-1.0); Blood Urea Nitrogen 25 mg/dL (9-16); Calcium 9.2 mg/dL (8.4-10.2); Carbon Dioxide 26 mmol/L (22-29); Chloride 108 mmol/L (96-108); Creatinine Clr Calc Pharmacy 121.4; Estimated Glomerular Filt Rate > 60; Glucose Random 130 mg/dL (60-115); Magnesium 1.9 mg/dL (1.6-2.6); Sodium 142 mmol/L (135-145); Total Protein 7.3 g/dL (6.5-8.0)
--- NOTE | 2022-10-05 17:17 | PC.NURSE ---
pt resting quietly, no apparent distress noted at this time
[2022-10-05 19:14] VITALS: PULSE 59; RESP 17; O2SAT 97
[2022-10-05 20:00] VITALS: BP 130/74; PULSE 60; RESP 16; TEMP 36.7; O2SAT 98
--- NOTE | 2022-10-05 22:03 | P.HPHOSP_ITS ---
History of Present Illness Date of Service: 10/05/22 Chief Complaint: seizure 52F PMH epilepsy, HTN, paroxysmal afib, morbid obesity, moderate perisent asthma/obesity restrictive lung disease, chronic pain, presented with breakthrough seizures. patient is vague historian. reports daily seizures for years, follow with Dr. Allred (last seen about 1 year ptp) on topamax. last few days reports 4-5 seizures today. unable to provide details about nature of seizures, says witnessed by daughter. in ED, labs, cth unremarkable. also mentioned LLW abd pain, inconsistent, ct abd unremarkable. Review of Systems Review of Systems: Yes all other systems are reviewed and are negative [facility] Medical History Bleeding disorder COVID-19 Gout High cholesterol History of gastric ulcer Hypertension Lab test positive for detection of COVID-19 virus (~11/2019) Left inguinal hernia (~2013) On anticoagulant therapy On beta christina at home SANDEE (obstructive sleep apnea) Osteoarthritis of knees, bilateral Family History Father Hx of diabetes insipidus Mother No problems noted. Surgical History H/O umbilical hernia repair (07/25/06) History of back surgery Hx of endoscopy S/P partial hysterectomy (11/10/18) Social History Alcohol intake: never Patient Tobacco Use Status: Never used Tobacco Smoked in Last 30 Days: No e-Cigarette/Vaping Use: Never Used Second Hand Smoke Exposure: No Use of substances other than those prescribed or required for medical reasons: No Advance Directives: Yes Advance Directives on File: Yes Advance Directives Date on File: 01/24/21 Current occupational status: unemployed Current occupation: right handed Meds Allergies Allergy/AdvReac Type Severity Reaction Status Date / Time aspirin AdvReac Mild mild Verified 09/24/22 16:19 vaginal bleeding Active Medications: Current Medications Pharmacy Consult (Consult Rx Perform Med Rec) 1 each MISCELLANE ONCE PRN PRN Reason: Consult order Home Medications Medication Instructions Recorded Confirmed Last Taken Type albuterol sulfate 90 mcg/actuation 2 puff inhalation Q6H PRN 04/27/20 10/05/22 08/01/22 History aerosol inhaler (ProAir HFA) Shortness Of Breath cetirizine 10 mg tablet 10 mg PO DAILY 04/27/20 10/05/22 08/01/22 History docusate sodium 100 mg capsule 100 mg PO DAILY 04/27/20 10/05/22 08/01/22 History (DOK) duloxetine 30 mg capsule,delayed 30 mg PO DAILY 04/27/20 10/05/22 08/01/22 History release metoprolol tartrate 50 mg tablet 50 mg PO DAILY 04/27/20 10/05/22 08/01/22 History montelukast 10 mg tablet 10 mg PO DAILY 04/27/20 10/05/22 08/01/22 History clonidine HCl 0.1 mg tablet 0.1 mg PO BID 06/05/20 10/05/22 08/01/22 History apixaban 5 mg tablet (Eliquis) 5 mg PO BID 06/28/20 10/05/22 07/28/22 History atorvastatin 40 mg tablet 40 mg PO BEDTIME 06/28/20 10/05/22 08/01/22 History losartan 100 mg tablet 100 mg PO DAILY 06/28/20 10/05/22 08/01/22 History furosemide 20 mg tablet 10 mg PO QAM 12/25/21 10/05/22 08/01/22 History topiramate 100 mg tablet 100 mg PO BEDTIME 12/25/21 10/05/22 08/01/22 History cyanocobalamin (vitamin B-12) 500 500 mcg PO QAM 01/08/22 10/05/22 08/01/22 History mcg tablet ergocalciferol (vitamin D2) 1,250 1,250 mcg PO QWEEK 01/08/22 10/05/22 08/01/22 History mcg (50,000 unit) capsule ferrous sulfate 325 mg (65 mg 325 mg PO QAM 01/08/22 10/05/22 08/01/22 History iron) tablet (FeroSul) omeprazole 20 mg capsule,delayed 20 mg PO QAM 01/08/22 10/05/22 08/01/22 History release amlodipine 5 mg tablet 5 mg PO DAILY 09/24/22 10/05/22 Unknown History multivitamin-iron sulfate 15 1 tab PO BEDTIME 10/05/22 10/05/22 Unknown History mg-folic acid 400 mcg tablet (Tab-A-Bing Multivitamin w-iron) Physical Exam Vital Signs and Narrative: Vital Signs: Last Vital Signs Temp 98.0 F 10/05/22 20:00 Pulse 60 10/05/22 20:00 Resp 16 10/05/22 20:00 BP 130/74 10/05/22 20:00 Pulse Ox 98 10/05/22 20:00 O2 Del Method Room Air 10/05/22 20:00 BMI result Body Mass Index 43.9 General: AO X 3, no acute distress Resp: CTA bilateral, no accessory muscles used CVS: S1,S2,RRR GI: soft, non tender, non distended Neuro: motor grossly intact, alert Psych: appropriate affect, appropriate insight Results Labs 10/05/22 15:56 10/05/22 15:56 Labs: Laboratory Results - last 24 hr 10/05/22 10/05/22 10/05/22 15:56 15:56 15:59 MCV 86.7 MCH 28.4 MCHC 32.7 RDW 13.7 Plt Count 407 H MPV 10.7 Immature Gran % (Auto) 0.3 Neut % (Auto) 60.0 Lymph % (Auto) 29.6 [place] % (Auto) 7.4 Eos % (Auto) 2.3 Baso % (Auto) 0.4 Lymph # (Auto) 3.4 [place] # (Auto) 0.9 Eos # (Auto) 0.3 Baso # (Auto) 0.0 Abs Immat Gran (auto) 0.03 Absolute Neuts (auto) 6.9 Absolute Nucleated RBC 0.000 Nucleated RBC % (auto) 0.0 Anion Gap 12 Estim Creat Clear Calc 121.4 Estimated GFR > 60 POC Glucose 161 H Random Glucose 130 H Lactic Acid Calcium 9.2 Magnesium 1.9 Total Bilirubin 0.3 Direct Bilirubin 0.1 AST 25 ALT 29 Alkaline Phosphatase 202 H Total Protein 7.3 Albumin 4.3 Urine Color Urine Appearance Urine pH Ur Specific [place] Urine Protein Urine Glucose (UA) Urine Ketones Urine Blood Urine Nitrite Ur Leukocyte Esterase Urine RBC Urine WBC Ur Squamous Epith Cells Urine Bacteria Hyaline Casts 10/05/22 10/05/22 16:03 16:14 MCV MCH MCHC RDW Plt Count MPV Immature Gran % (Auto) Neut % (Auto) Lymph % (Auto) [place] % (Auto) Eos % (Auto) Baso % (Auto) Lymph # (Auto) [place] # (Auto) Eos # (Auto) Baso # (Auto) Abs Immat Gran (auto) Absolute Neuts (auto) Absolute Nucleated RBC Nucleated RBC % (auto) Anion Gap Estim Creat Clear Calc Estimated GFR POC Glucose Random Glucose Lactic Acid 1.3 Calcium Magnesium Total Bilirubin Direct Bilirubin AST ALT Alkaline Phosphatase Total Protein Albumin Urine Color Dark Yellow Urine Appearance Clear Urine pH 6.0 Ur Specific [place] >= 1.030 H Urine Protein 30 (1+) H Urine Glucose (UA) Negative Urine Ketones Negative Urine Blood Negative Urine Nitrite Negative Ur Leukocyte Esterase Trace H Urine RBC 3-5 H Urine WBC 6-10 H Ur Squamous Epith Cells 11-20 Urine Bacteria Trace Hyaline Casts 0-2 Imaging Radiologist's Impressions: Impressions Abdomen/Pelvis CT 10/05/22 16:35 IMPRESSION: Small bilateral nonobstructing renal stones. Slightly enlarged liver. Diverticulosis. No evidence of diverticulitis. Fleischner guidelines were followed. Head CT 10/05/22 20:53 IMPRESSION: Unremarkable exam. Assessment and Plan (1) Morbid obesity with BMI of 45.0-49.9, adult: Status: Acute Plan 52F PMH epilepsy, HTN, paroxysmal afib, morbid obesity, moderate perisent asthma/obesity restrictive lung disease, chronic pain, presented with breakthr ough seizures breakthrough seizures epileptic vs non epileptic neuro eval seizure precautions topamax paroxysmal afib metoprolol, eliquis moderate persistentn asthma continue inhalers stable morbid obesity/restrictive lung disease from obesity weight loss recommended HTN losartan, clonidine, amlodipine, metoprolol dvt prophylaxis - on eliquis full code Time Spent With Patient Time: Total time managing care of this patient today ____ minutes. Quality Stroke Does the patient have a stroke diagnosis?: No VTE Prior VTE?: No VTE Risk Level:: Medical - moderate - high VTE Device Contraindication: Treatment Not Indicated VTE Drug Contraindication: N/A - Med Ordered
[2022-10-05 22:19] VITALS: BP 137/75; PULSE 57; RESP 16; TEMP 36.7; O2SAT 97
[2022-10-05] MEDS: 0.9 % Sodium Chloride Flush 3 ML SYRINGE IVFLUSH (23:24)
[2022-10-05] MEDS: Enoxaparin Sodium 40 MG/0.4 ML SYRINGE SUBCUT (23:24)
[2022-10-05 23:50] VITALS: BP 131/73; PULSE 60; RESP 18; TEMP 36.6; O2SAT 97
--- NOTE | 2022-10-05 23:52 | MHC.EDTECH ---
This Tech assumed care of patient at 2300,vitals taken,warm blanket giving and patient is requesting pain meds,this tech will make RN aware.call perla in reach.
[2022-10-06] VITALS (13 sets, daily range): BP systolic 98–150; BP diastolic 46–92; PULSE 55–72; RESP 18–20; TEMP 36–37.1; O2SAT 92–100; BMI 45.8
--- NOTE | 2022-10-06 00:04 | PC.NURSE ---
Addendum entered by Keke Atwood 10/06/22 00:07: Dr. Best notified about pt pain, new orders in, awaiting for pharmacy to verify. Original Note: This procedure writer assumed care of this Pt at 2300. Pt A&Ox4, seizure pads in place. Reports 10/10 constant right sided ABD pain. Reports pain being as constant, non tender to touch, reports last BM was today and normal for self.
[2022-10-06] MEDS: Morphine Sulfate 2 MG/ML CARTRIDGE IVPUSH ×7 (00:19→18:36)
--- NOTE | 2022-10-06 00:54 | PC.NURSE ---
RN to RN report given to Alyssa MORENO, Pt will be transported to room 364, Pt aware of plan.
[2022-10-06] MEDS: Albuterol/Iprat 2.5/0.5MG 3 ML AMPUL.NEB INHALE ×3 (02:02→19:52)
--- NOTE | 2022-10-06 03:22 | PC.NURSE ---
Pt arrived from the ED at 0108 per wheelchair, alert and oriented, still with right flank pain, noted with mild SOB with exertion and scattered exp wheezing ,O2 sats on the high 90s, Dr. Best was paged for neb treatment, RT came and gave neb with relief, warm packs for right flank provided,prn Morphine given with some effect, callbell use encouraged.
[2022-10-06] MEDS: Acetaminophen 325 MG TABLET 650 MG PO ×2 (04:42→10:45)
[2022-10-06] MEDS: Omeprazole 20 MG CAPSULE.DR PO (06:03)
[2022-10-06 06:24] LABS: Hematocrit 36.8 % (37.0-47.0); Hemoglobin 12.1 g/dl (12.0-16.0); Mean Corpuscular HGB Conc 32.9 g/dl (31.0-35.0); Mean Corpuscular Hemoglobin 29.1 pg (27.0-33.0); Mean Corpuscular Volume 88.5 fL (80.0-98.0); Mean Platelet Volume 11.3 fL (9.4-12.3); Platelet Count 359 X10*3/uL (160-400); Red Blood Count 4.16 X10*6/uL (4.20-5.50); Red Cell Distribution Width 13.9 % (11.0-16.0); White Blood Count 11.6 X10*3/uL (4.8-10.8)
[2022-10-06 06:51] LABS: Anion Gap 12 (12-20); Blood Urea Nitrogen 20 mg/dL (9-16); Calcium 8.8 mg/dL (8.4-10.2); Carbon Dioxide 26 mmol/L (22-29); Chloride 107 mmol/L (96-108); Creatinine Clr Calc Pharmacy 134.3; Estimated Glomerular Filt Rate > 60; Glucose Fasting 117 mg/dL (60-99); Potassium 3.9 mmol/L (3.3-5.1); Sodium 141 mmol/L (135-145)
[2022-10-06] MEDS: amLODIPine Besylate 5 MG TABLET PO (08:11)
[2022-10-06] MEDS: DULoxetine HCl 30 MG CAPSULE.DR PO (08:11)
[2022-10-06] MEDS: Montelukast Sodium 10 MG TABLET PO (08:11)
[2022-10-06] MEDS: Losartan Potassium 50 MG TABLET 100 MG PO (08:11)
[2022-10-06] MEDS: cloNIDine HCL 0.1 MG TABLET PO ×2 (08:11→20:23)
[2022-10-06] MEDS: Metoprolol Tartrate 50 MG TABLET PO (08:11)
[2022-10-06] MEDS: Cyanocobalamin (Vitamin B-12) 500 MCG TABLET PO (08:12)
[2022-10-06] MEDS: Loratadine 10 MG TABLET PO (08:13)
[2022-10-06] MEDS: Furosemide 20 MG TABLET 10 MG PO (08:13)
[2022-10-06] MEDS: Docusate Sodium 100 MG CAPSULE PO (08:13)
[2022-10-06] MEDS: Ferrous Sulfate 324 MG TABLET.DR PO (08:28)
[2022-10-06] MEDS: 0.9 % Sodium Chloride Flush 3 ML SYRINGE IVFLUSH ×3 (08:28→20:23)
[2022-10-06] MEDS: methylPREDNISolone Sod Succ 40 MG/ML VIAL IVPUSH ×2 (09:12→20:23)
--- NOTE | 2022-10-06 09:28 | P.PNIM_ITS ---
Subjective Subjective Date of Service: 10/06/22 Interval History: seen and examined this morning admitted overnight for recurrent seizures Rapid response called around 8:20 for seizure. patient talking with nurse at which time patient stop talking and started staring off into the distance. patient lowered herself down in the bed guided by RN. Vital signs remained stable. no generalized seizure activity, no loss of bladder/ bowel control, no post-ictal period. hand drop test - patient avoided hitting face patient alert and oriented and able to answer questions appropriately, speaking in full sentences. reporting right side abdominal pain. Review of Systems Review of Systems: Yes all other systems are reviewed and are negative Constitutional Constitutional: Denies chills and Denies fever(s) ENT Ears, Nose, Mouth, and Throat: Denies dizziness Cardiovascular Cardiovascular: Denies chest pain and Denies palpitations Respiratory Respiratory: Denies cough Gastrointestinal Gastrointestinal: Reports abdominal pain Neurologic Neurologic: Denies dizziness Endocrine Endocrine: Denies palpitations Physical Exam Vital Signs: Vital Signs: Last Vital Signs Temp 97.6 F 10/06/22 08:34 Pulse 69 10/06/22 08:34 Resp 18 10/06/22 08:34 BP 140/85 H 10/06/22 08:34 Pulse Ox 97 10/06/22 08:34 O2 Del Method Nasal Cannula 10/06/22 08:34 O2 Flow Rate 2 10/06/22 08:34 BMI result Body Mass Index 45.8 Const: General: alert and awake Nutritional Appearance: obese Orientati on/consciousness: patient oriented x3 Resp: Effort & Inspection: normal respiratory effort and able to speak in complete sentences Auscultation: wheezes Cardio: Rate: regular rate Heart sounds: S1 normal heart sound present and S2 normal heart sound present GI: Inspection: No distended Palpation (GI): Soft to palpation and nontender Neuro: Other: no focal deficits noted General: patient oriented x3 Extrem: Other: moving all 4 extremities spontaneously Objective Data Active Medications Acetaminophen (Acetaminophen 325 Mg Tablet) 650 mg PO Q6H PRN PRN Reason: heaache Last Admin: 10/06/22 04:42 Dose: 650 mg Documented By: TIARA Albuterol Sulfate (Albuterol Sulfate 90 Mcg 8 Gm Inhaler) 2 puff INHALE Q6H PRN PRN Reason: Shortness Of Breath Albuterol/Ipratropium (Albuterol/Iprat 2.5/0.5mg 3 Ml Ampul.Neb) 3 ml INHALE RQ4H WHILE AWAKE [facility] Last Admin: 10/06/22 08:05 Dose: 3 ml Documented By: CHEPE Amlodipine Besylate (Amlodipine Besylate 5 Mg Tablet) 5 mg PO DAILY [facility]; Protocol Last Admin: 10/06/22 08:11 Dose: 5 mg Documented By: RAKEL Atorvastatin Calcium (Atorvastatin Calcium 40 Mg Tablet) 40 mg PO BEDTIME [facility] Clonidine HCl (Clonidine Hcl 0.1 Mg Tablet) 0.1 mg PO BID [facility]; Protocol Last Admin: 10/06/22 08:11 Dose: 0.1 mg Documented By: RAKEL Cyanocobalamin (Cyanocobalamin (Vitamin B-12) 500 Mcg Tablet) 500 mcg PO DAILY [facility] Last Admin: 10/06/22 08:12 Dose: 500 mcg Documented By: RAKEL Docusate Sodium (Docusate Sodium 100 Mg Capsule) 100 mg PO DAILY [facility] Last Admin: 10/06/22 08:13 Dose: 100 mg Documented By: RAKEL Duloxetine HCl (Duloxetine Hcl 30 Mg Capsule.) 30 mg PO DAILY [facility] Last Admin: 10/06/22 08:11 Dose: 30 mg Documented By: RAKEL Enoxaparin Sodium (Enoxaparin Sodium 40 Mg/0.4 Ml Syringe) 40 mg SUBCUT Q24H [facility] Last Admin: 10/05/22 23:24 Dose: 40 mg Documented By: BENITEZ Ergocalciferol (Ergocalciferol (Vitamin D2) 1,250 Mcg Capsule) 1,250 mcg PO Fr@0900 [facility] Ferrous Sulfate (Ferrous Sulfate 324 Mg Tablet.) 324 mg PO DAILY [facility] Last Admin: 10/06/22 08:28 Dose: 324 mg Documented By: RAKEL Fluticasone/Vilanterol (Fluticasone/Vilanterol 100/25 Blst.W.Dev) 1 puff INHALE RDAILY [facility] Last Admin: 10/06/22 08:04 Dose: Not Given Documented By: CHEPE Non-Admin Reason: pharmacy called Furosemide (Furosemide 20 Mg Tablet) 10 mg PO DAILY [facility]; Protocol Last Admin: 10/06/22 08:13 Dose: 10 mg Documented By: RAKEL Loratadine (Loratadine 10 Mg Tablet) 10 mg PO DAILY [facility] Last Admin: 10/06/22 08:13 Dose: 10 mg Documented By: RAKEL Losartan Potassium (Losartan Potassium 50 Mg Tablet) 100 mg PO DAILY [facility]; Protocol Last Admin: 10/06/22 08:11 Dose: 100 mg Documented By: RAKEL Methylprednisolone Sodium Succinate (Methylprednisolone Sod Succ 40 Mg/Ml Vial) 40 mg IVPUSH Q12H [facility] Last Admin: 10/06/22 09:12 Dose: 40 mg Documented By: RAKEL Metoprolol Tartrate (Metoprolol Tartrate 50 Mg Tablet) 50 mg PO DAILY [facility]; Protocol Last Admin: 10/06/22 08:11 Dose: 50 mg Documented By: RAKEL Montelukast Sodium (Montelukast Sodium 10 Mg Tablet) 10 mg PO DAILY [facility] Last Admin: 10/06/22 08:11 Dose: 10 mg Documented By: RAKEL Morphine Sulfate (Morphine Sulfate 2 Mg/Ml Cartridge) 2 mg IVPUSH Q3H PRN; Protocol PRN Reason: moderate pain Last Admin: 10/06/22 09:12 Dose: 2 mg Documented By: RAKEL Omeprazole (Omeprazole 20 Mg Capsule.) 20 mg PO DAILY@0630 [facility] Last Admin: 10/06/22 06:03 Dose: 20 mg Documented By: TIARA Pharmacy Consult (Consult Rx Perform Med Rec) 1 each MISCELLANE ONCE PRN PRN Reason: Consult order Sodium Chloride (0.9 % Sodium Chloride Flush 3 Ml Syringe) 3 ml IVFLUSH QSHIFT [facility] Last Admin: 10/06/22 08:28 Dose: 3 ml Documented By: RAKEL Topiramate (Topiramate 100 Mg Tablet) 100 mg PO BEDTIME [facility] Labs 10/06/22 05:12 10/06/22 05:12 Labs: Laboratory Results - last 24 hr 10/05/22 10/05/22 10/05/22 15:56 15:56 15:59 MCV 86.7 MCH 28.4 MCHC 32.7 RDW 13.7 Plt Count 407 H MPV 10.7 Immature Gran % (Auto) 0.3 Neut % (Auto) 60.0 Lymph % (Auto) 29.6 [place] % (Auto) 7.4 Eos % (Auto) 2.3 Baso % (Auto) 0.4 Lymph # (Auto) 3.4 [place] # (Auto) 0.9 Eos # (Auto) 0.3 Baso # (Auto) 0.0 Abs Immat Gran (auto) 0.03 Absolute Neuts (auto) 6.9 Absolute Nucleated RBC 0.000 Nucleated RBC % (auto) 0.0 Anion Gap 12 Estim Creat Clear Calc 121.4 Estimated GFR > 60 POC Glucose 161 H Random Glucose 130 H Fasting Glucose Lactic Acid Calcium 9.2 Magnesium 1.9 Total Bilirubin 0.3 Direct Bilirubin 0.1 AST 25 ALT 29 Alkaline Phosphatase 202 H Total Protein 7.3 Albumin 4.3 Urine Color Urine Appearance Urine pH Ur Specific [place] Urine Protein Urine Glucose (UA) Urine Ketones Urine Blood Urine Nitrite Ur Leukocyte Esterase Urine RBC Urine WBC Ur Squamous Epith Cells Urine Bacteria Hyaline Casts 10/05/22 10/05/22 10/06/22 16:03 16:14 05:12 MCV 88.5 MCH 29.1 MCHC 32.9 RDW 13.9 Plt Count 359 MPV 11.3 Immature Gran % (Auto) Neut % (Auto) Lymph % (Auto) [place] % (Auto) Eos % (Auto) Baso % (Auto) Lymph # (Auto) [place] # (Auto) Eos # (Auto) Baso # (Auto) Abs Immat Gran (auto) Absolute Neuts (auto) Absolute Nucleated RBC 0.000 Nucleated RBC % (auto) 0.0 Anion Gap Estim Creat Clear Calc Estimated GFR POC Glucose Random Glucose Fasting Glucose Lactic Acid 1.3 Calcium Magnesium Total Bilirubin Direct Bilirubin AST ALT Alkaline Phosphatase Total Protein Albumin Urine Color Dark Yellow Urine Appearance Clear Urine pH 6.0 Ur Specific [place] >= 1.030 H Urine Protein 30 (1+) H Urine Glucose (UA) Negative Urine Ketones Negative Urine Blood Negative Urine Nitrite Negative Ur Leukocyte Esterase Trace H Urine RBC 3-5 H Urine WBC 6-10 H Ur Squamous Epith Cells 11-20 Urine Bacteria Trace Hyaline Casts 0-2 10/06/22 05:12 MCV MCH MCHC RDW Plt Count MPV Immature Gran % (Auto) Neut % (Auto) Lymph % (Auto) [place] % (Auto) Eos % (Auto) Baso % (Auto) Lymph # (Auto) [place] # (Auto) Eos # (Auto) Baso # (Auto) Abs Immat Gran (auto) Absolute Neuts (auto) Absolute Nucleated RBC Nucleated RBC % (auto) Anion Gap 12 Estim Creat Clear Calc 134.3 Estimated GFR > 60 POC Glucose Random Glucose Fasting Glucose 117 H Lactic Acid Calcium 8.8 Magnesium Total Bilirubin Direct Bilirubin AST ALT Alkaline Phosphatase Total Protein Albumin Urine Color Urine Appearance Urine pH Ur Specific [place] Urine Protein Urine Glucose (UA) Urine Ketones Urine Blood Urine Nitrite Ur Leukocyte Esterase Urine RBC Urine WBC Ur Squamous Epith Cells Urine Bacteria Hyaline Casts Assessment and Plan (1) Asthma: Status: Acute (2) Seizure: Status: Acute Plan 52F PMH epilepsy, HTN, paroxysmal afib, morbid obesity, moderate persistent asthma/obesity restrictive lung disease, chronic pain, presented with breakthrough seizures breakthrough seizures epileptic vs non epileptic no post-ictal period, likely non-epileptic neuro eval pending seizure precautions continue topamax moderate persistent asthma with acute exacerbation will start IV solu-medrol continue scheduled breathing treatments abdominal pain CT abdomen negative Urine culture pending symptomatic support paroxysmal afib metoprolol eliquis on hold for nerve blood scheduled for 10/08 morbid obesity/restrictive lung disease from obesity BMI 45.9 due to excess calories weight loss recommended HTN losartan, clonidine, amlodipine, metoprolol SANDEE diagnosed but awaiting CPAP machine dvt prophylaxis - on Lovenox full code attending - Dr. Vizcaino patient requires ongoing inpatient hospital stay for management of breakthrough seizure, acute asthma exacerbation Time Spent With Patient Time: Total time managing care of this patient today ____ minutes. Quality Stroke Does the patient have a stroke diagnosis?: No VTE Prior VTE?: No VTE Risk Level:: Medical - moderate - high VTE Device Contraindication: Treatment Not Indicated VTE Drug Contraindication: N/A - Med Ordered
--- NOTE | 2022-10-06 09:39 | PM.NEUROCN ---
History of Present Illness Data of Consult Service Date: 10/06/22 Primary Care Provider: Davina Marie MD [facility] Reason for consult: Question seizure disorder 52 years old woman with morbid obesity and previous diagnosis of nonepileptic seizures or pseudoseizures came to hospital with another such episode and also reporting that she was having frequent seizures on daily basis. To my examination she said that she was having pain and right mid part of her belly going to posterior side and also having some burning urination. Review of Systems Review of Systems: Right flank pain. [facility] Past Medical History Medical History Bleeding disorder COVID-19 Gout High cholesterol History of gastric ulcer Hypertension Lab test positive for detection of COVID-19 virus (~11/2019) Left inguinal hernia (~2013) On anticoagulant therapy On beta christina at home SANDEE (obstructive sleep apnea) Osteoarthritis of knees, bilateral Family History Family History Father Hx of diabetes insipidus Mother No problems noted. Surgical History Surgical History H/O umbilical hernia repair (07/25/06) History of back surgery Hx of endoscopy S/P partial hysterectomy (11/10/18) Social History Social History Household Members: Family and Children Housing: House Alcohol intake: never Patient Tobacco Use Status: Never used Tobacco Smoked in Last 30 Days: No e-Cigarette/Vaping Use: Never Used Second Hand Smoke Exposure: No Use of substances other than those prescribed or required for medical reasons: No Currently Displaying Signs/Symptoms of Drug Intoxication Withdrawal: No Have you been hit, kicked, punched, or otherwise hurt by someone within the past year? If so, by whom?: No Do you feel safe in your current relationship?: No Is there a partner from a previous relationship who is making you feel unsafe now?: No Are you made to feel afraid or neglected: No Advance Directives: Yes Advance Directives on File: Yes Advance Directives Date on File: 01/24/21 Do you have thoughts of harming others: None Do you have a plan to hurt others: No Plan Recently lost weight without trying: No How much weight loss: Not applicable Eating poorly because of decreased appetite: No Nutrition screen score: 0 Nutrition Risks: No Nutritional Risk Patient : No : No Poor oral hygiene: No Current occupational status: unemployed Current occupation: right handed Meds Allergies Allergy/AdvReac Type Severity Reaction Status Date / Time aspirin AdvReac Mild mild Verified 09/24/22 16:19 vaginal bleeding Active Medications: Current Medications Acetaminophen (Acetaminophen 325 Mg Tablet) 650 mg PO Q6H PRN PRN Reason: heaache Last Admin: 10/06/22 04:42 Dose: 650 mg Albuterol Sulfate (Albuterol Sulfate 90 Mcg 8 Gm Inhaler) 2 puff INHALE Q6H PRN PRN Reason: Shortness Of Breath Albuterol/Ipratropium (Albuterol/Iprat 2.5/0.5mg 3 Ml Ampul.Neb) 3 ml INHALE RQ4H WHILE AWAKE [facility] Last Admin: 10/06/22 08:05 Dose: 3 ml Amlodipine Besylate (Amlodipine Besylate 5 Mg Tablet) 5 mg PO DAILY [facility]; Protocol Last Admin: 10/06/22 08:11 Dose: 5 mg Atorvastatin Calcium (Atorvastatin Calcium 40 Mg Tablet) 40 mg PO BEDTIME [facility] Clonidine HCl (Clonidine Hcl 0.1 Mg Tablet) 0.1 mg PO BID [facility]; Protocol Last Admin: 10/06/22 08:11 Dose: 0.1 mg Cyanocobalamin (Cyanocobalamin (Vitamin B-12) 500 Mcg Tablet) 500 mcg PO DAILY [facility] Last Admin: 10/06/22 08:12 Dose: 500 mcg Docusate Sodium (Docusate Sodium 100 Mg Capsule) 100 mg PO DAILY [facility] Last Admin: 10/06/22 08:13 Dose: 100 mg Duloxetine HCl (Duloxetine Hcl 30 Mg Capsule.) 30 mg PO DAILY [facility] Last Admin: 10/06/22 08:11 Dose: 30 mg Enoxaparin Sodium (Enoxaparin Sodium 40 Mg/0.4 Ml Syringe) 40 mg SUBCUT Q24H [facility] Last Admin: 10/05/22 23:24 Dose: 40 mg Ergocalciferol (Ergocalciferol (Vitamin D2) 1,250 Mcg Capsule) 1,250 mcg PO Fr@0900 [facility] Ferrous Sulfate (Ferrous Sulfate 324 Mg Tablet.) 324 mg PO DAILY [facility] Last Admin: 10/06/22 08:28 Dose: 324 mg Fluticasone/Vilanterol (Fluticasone/Vilanterol 100/25 Blst.W.Dev) 1 puff INHALE RDAILY [facility] Last Admin: 10/06/22 08:04 Dose: Not Given Furosemide (Furosemide 20 Mg Tablet) 10 mg PO DAILY [facility]; Protocol Last Admin: 10/06/22 08:13 Dose: 10 mg Loratadine (Loratadine 10 Mg Tablet) 10 mg PO DAILY [facility] Last Admin: 10/06/22 08:13 Dose: 10 mg Losartan Potassium (Losartan Potassium 50 Mg Tablet) 100 mg PO DAILY [facility]; Protocol Last Admin: 10/06/22 08:11 Dose: 100 mg Methylprednisolone Sodium Succinate (Methylprednisolone Sod Succ 40 Mg/Ml Vial) 40 mg IVPUSH Q12H [facility] Last Admin: 10/06/22 09:12 Dose: 40 mg Metoprolol Tartrate (Metoprolol Tartrate 50 Mg Tablet) 50 mg PO DAILY [facility]; Protocol Last Admin: 10/06/22 08:11 Dose: 50 mg Montelukast Sodium (Montelukast Sodium 10 Mg Tablet) 10 mg PO DAILY [facility] Last Admin: 10/06/22 08:11 Dose: 10 mg Morphine Sulfate (Morphine Sulfate 2 Mg/Ml Cartridge) 2 mg IVPUSH Q3H PRN; Protocol PRN Reason: moderate pain Last Admin: 10/06/22 09:12 Dose: 2 mg Omeprazole (Omeprazole 20 Mg Capsule.Dr) 20 mg PO DAILY@0630 [facility] Last Admin: 10/06/22 06:03 Dose: 20 mg Pharmacy Consult (Consult Rx Perform Med Rec) 1 each MISCELLANE ONCE PRN PRN Reason: Consult order Sodium Chloride (0.9 % Sodium Chloride Flush 3 Ml Syringe) 3 ml IVFLUSH QSHIFT [facility] Last Admin: 10/06/22 08:28 Dose: 3 ml Topiramate (Topiramate 100 Mg Tablet) 100 mg PO BEDTIME [facility] Home Medications Medication Instructions Recorded Confirmed Last Taken Type albuterol sulfate 90 mcg/actuation 2 puff inhalation Q6H PRN 04/27/20 10/05/22 08/01/22 History aerosol inhaler (ProAir HFA) Shortness Of Breath cetirizine 10 mg tablet 10 mg PO DAILY 04/27/20 10/05/22 08/01/22 History docusate sodium 100 mg capsule 100 mg PO DAILY 04/27/20 10/05/22 08/01/22 History (DOK) duloxetine 30 mg capsule,delayed 30 mg PO DAILY 04/27/20 10/05/22 08/01/22 History release metoprolol tartrate 50 mg tablet 50 mg PO DAILY 04/27/20 10/05/22 08/01/22 History montelukast 10 mg tablet 10 mg PO DAILY 04/27/20 10/05/22 08/01/22 History clonidine HCl 0.1 mg tablet 0.1 mg PO BID 06/05/20 10/05/22 08/01/22 History apixaban 5 mg tablet (Eliquis) 5 mg PO BID 06/28/20 10/05/22 07/28/22 History atorvastatin 40 mg tablet 40 mg PO BEDTIME 06/28/20 10/05/22 08/01/22 History losartan 100 mg tablet 100 mg PO DAILY 06/28/20 10/05/22 08/01/22 History furosemide 20 mg tablet 10 mg PO QAM 12/25/21 10/05/22 08/01/22 History topiramate 100 mg tablet 100 mg PO BEDTIME 12/25/21 10/05/22 08/01/22 History cyanocobalamin (vitamin B-12) 500 500 mcg PO QAM 01/08/22 10/05/22 08/01/22 History mcg tablet ergocalciferol (vitamin D2) 1,250 1,250 mcg PO QWEEK 01/08/22 10/05/22 08/01/22 History mcg (50,000 unit) capsule ferrous sulfate 325 mg (65 mg 325 mg PO QAM 01/08/22 10/05/22 08/01/22 History iron) tablet (FeroSul) omeprazole 20 mg capsule,delayed 20 mg PO QAM 01/08/22 10/05/22 08/01/22 History release amlodipine 5 mg tablet 5 mg PO DAILY 09/24/22 10/05/22 Unknown History multivitamin-iron sulfate 15 1 tab PO BEDTIME 10/05/22 10/05/22 Unknown History mg-folic acid 400 mcg tablet (Tab-A-Bing Multivitamin w-iron) Physical Exam Vital Signs: Vital Signs: Last Vital Signs Temp 97.6 F 10/06/22 08:34 Pulse 69 10/06/22 08:34 Resp 18 10/06/22 08:34 BP 140/85 H 10/06/22 08:34 Pulse Ox 97 10/06/22 08:34 O2 Del Method Nasal Cannula 10/06/22 08:34 O2 Flow Rate 2 10/06/22 08:34 BMI result Body Mass Index 45.8 Neuro: Other: Alert and awake with normal spontaneity of speech fluency comprehension and affect. She was morbidly obese. There was no focal finding on examination. Results Labs 10/06/22 05:12 10/06/22 05:12 Labs: Short CBC 10/05/22 10/06/22 Range/Units 15:56 05:12 WBC 11.4 H 11.6 H (4.8-10.8) X10*3/uL Hgb 12.6 12.1 (12.0-16.0) g/dl Hct 38.5 36.8 L (37.0-47.0) % Plt Count 407 H 359 (160-400) X10*3/uL BMP 10/05/22 10/06/22 15:56 05:12 Sodium 142 141 Potassium 4.0 3.9 Chloride 108 107 Carbon Dioxide 26 26 BUN 25 H 20 H Creatinine 0.82 0.76 Calcium 9.2 8.8 Liver Function 10/05/22 Range/Units 15:56 Total Bilirubin 0.3 (0.0-1.0) mg/dL Direct Bilirubin 0.1 (0.0-0.5) mg/dL AST 25 (5-31) U/L ALT 29 (0-31) U/L Alkaline Phosphatase 202 H (39-117) U/L Albumin 4.3 (3.5-5.0) g/dL Urine 10/05/22 Range/Units 16:03 Urine Color Dark Yellow Urine Appearance Clear Urine pH 6.0 (5.0-9.0) Ur Specific [place] >= 1.030 H (1.005-1.025) Urine Protein 30 (1+) H (Neg-Trace) mg/dL Urine Glucose (UA) Negative (Negative) mg/dL Head CT without contrast was negative and UA was somewhat suggestive of UTI. Assessment and Plan (1) Seizure: Status: Acute 52 years old woman with previous diagnosis of nonepileptic spells or pseudoseizures. At this time her primary problem seems to be UTI. She had multiple investigations in the past to rule out epilepsy, which were negative. At this time, I recommend ruling out possibility of renal stones as she was taking Topamax, which rarely can be associated with renal stones. Otherwise, no further investigation is recommended Time Spent With Patient Time: Total time managing care of this patient today ____ minutes. Procedures Date of Service Date of Service: 10/06/22
--- NOTE | 2022-10-06 10:13 | PHA.MEDREC ---
Pharmacy Consult ? Medication Reconciliation Pharmacy has completed the medication reconciliation. Spoke to patient to confirm meds. They had med box drug list with them.
[2022-10-06] MEDS: Butalb/Acetamin/Caff 50/325/40 TABLET 1 TAB PO (11:39)
[2022-10-06] MEDS: ondansetron HCL 4 MG/2 ML VIAL IVPUSH ×2 (13:07→20:57)
--- NOTE | 2022-10-06 15:19 | MHC.CM.PN ---
PT REPORTS SHE LIVES WITH HER FATHER AND CHILDREN (AGES RANGING FROM 13-20) SHE REPORTS SHE HAS NO SERVICES AT THIS TIME BUT WAS SUPPOSED TO BE ASSESSED VIA [facility], SHE IS UNSURE WHY IT HAS NOT YET BEEN COMPLETED SHE ALSO REPORTS SHE HAS NO DME AT THIS TIME, BUT WAS SUPPOSED TO BE GETTING A WALKER, SHE DOES NOT KNOW WHY IT WAS NOT DELIVERED SHE IS COVID V[place] AND HAS HAD ALL OF THE BOOSTERS HCP ON FILE PCP: KARYN MEDELLIN OBSERVATION NOTICE DELIVERED CURRENT DC PLAN IS HOME WITH A REFERRAL TO [facility] FAMILY TO TRANSPORT
[2022-10-06] MEDS: Omeprazole 40 MG CAPSULE.DR PO (15:23)
[2022-10-06] MEDS: Atorvastatin Calcium 40 MG TABLET PO (20:23)
[2022-10-06] MEDS: Topiramate 100 MG TABLET PO (20:52)
[2022-10-06] MEDS: Enoxaparin Sodium 40 MG/0.4 ML SYRINGE SUBCUT (22:09)
[2022-10-07] MEDS: Morphine Sulfate 2 MG/ML CARTRIDGE IVPUSH ×3 (02:18→09:32)
[2022-10-07 02:31] VITALS: BP 121/58; PULSE 60; RESP 16; TEMP 36.3; O2SAT 94
[2022-10-07] MEDS: ondansetron HCL 4 MG/2 ML VIAL IVPUSH (05:10)
[2022-10-07] MEDS: Omeprazole 40 MG CAPSULE.DR PO (05:11)
[2022-10-07 07:31] VITALS: BP 113/59; PULSE 64; RESP 17; TEMP 36.7; O2SAT 94
[2022-10-07 07:52] LABS: Glucose, Whole Blood 155 mg/dL (60-115)
[2022-10-07] MEDS: Albuterol/Iprat 2.5/0.5MG 3 ML AMPUL.NEB INHALE ×2 (08:30→11:51)
[2022-10-07] MEDS: Fluticasone/Vilanterol 100/25 BLST.W.DEV 1 PUFF INHALE (08:31)
[2022-10-07 08:32] VITALS: PULSE 75; RESP 16; O2SAT 95
[2022-10-07] MEDS: DULoxetine HCl 30 MG CAPSULE.DR PO (09:17)
[2022-10-07] MEDS: Montelukast Sodium 10 MG TABLET PO (09:17)
[2022-10-07] MEDS: 0.9 % Sodium Chloride Flush 3 ML SYRINGE IVFLUSH (09:17)
[2022-10-07] MEDS: Metoprolol Tartrate 50 MG TABLET PO (09:17)
[2022-10-07] MEDS: methylPREDNISolone Sod Succ 40 MG/ML VIAL IVPUSH (09:17)
[2022-10-07] MEDS: amLODIPine Besylate 5 MG TABLET PO (09:17)
[2022-10-07] MEDS: Loratadine 10 MG TABLET PO (09:18)
[2022-10-07] MEDS: Ferrous Sulfate 324 MG TABLET.DR PO (09:18)
[2022-10-07] MEDS: Losartan Potassium 50 MG TABLET 100 MG PO (09:18)
[2022-10-07] MEDS: Docusate Sodium 100 MG CAPSULE PO (09:18)
[2022-10-07] MEDS: Furosemide 20 MG TABLET 10 MG PO (09:19)
[2022-10-07] MEDS: cloNIDine HCL 0.1 MG TABLET PO (09:19)
[2022-10-07] MEDS: Cyanocobalamin (Vitamin B-12) 500 MCG TABLET PO (09:19)
--- NOTE | 2022-10-07 11:38 | PM.DS ---
DS: Providers Provider Date of Service: 10/07/22 Date of admission: 10/05/22 22:18 Primary care physician: Davina Marie MD Consults: 10/05/22 22:02 Consult to Neurology Routine Consulting Provider: [facility] Reason for consultation: ?seizures Attending physician on discharge: Randy Vázquez Discharging clinician: Lisbeth Elizabeth DS: Diagnosis Discharge Diagnosis (1) Asthma: Status: Acute (2) Seizure: Status: Acute DS: Summary Hospital Course Hospital Course: 52F PMH epilepsy, HTN, paroxysmal afib, morbid obesity, moderate persistent asthma/obesity restrictive lung disease, chronic pain, presented with breakthrough seizures Psychogenic nonepileptic seizure. Patient reports many years with seizure type symptoms, followed by Neurology at [facility]. Has been on Topamax. Had 2 episodes of rapid response during hospitalization for seizure-like activity. With eyes open, staring, some intermittent body movements. However, patient is able to respond and communicate during these episodes and does not experience any post ictal period. The symptoms are very similar to what she has had in the past and epilepsy has been without. Patient should follow-up with her neurologist and continue to follow any safety measures for any non epileptic type seizure activity. moderate persistent asthma with acute exacerbation. Treated with IV Solu-Medrol and scheduled DuoNebs. Resolved Abdominal pain . Abdominal CT negative for acute abnormality. Resolved without intervention paroxysmal afib. On metoprolol as well as Eliquis however patient is scheduled for nerve block on 10/08/2022 and has had her Eliquis on hold for this. morbid obesity/restrictive lung disease from obesity. BMI 45.9. Discussed importance of weight management as this may be contributing to worsening of other comorbidities HTN losartan, clonidine, amlodipine, metoprolol SANDEE. Recent diagnosis, waiting CPAP machine for home use Time Spent with Patient Time attestation: Total time managing care of this patient today ____ minutes. Discharge coordination time: Greater than 30 minutes Quality: Safe Use of Opioids Does Pt have an Active Cancer Diagnosis on the Problem List?: No Quality: Stroke Does the patient have a stroke diagnosis?: No Physical Exam Vital Signs: Vital Signs: Last Vital Signs Temp 98.0 F 10/07/22 07:31 Pulse 75 10/07/22 08:32 Resp 16 10/07/22 08:32 BP 113/59 L 10/07/22 07:31 Pulse Ox 94 10/07/22 07:31 O2 Del Method Room Air 10/07/22 07:31 O2 Flow Rate 2 10/07/22 02:31 BMI result Body Mass Index 45.8 Appearing in no acute distress head is normocephalic atraumatic eyes pupils are PERRLA sclera is anicteric mouth throat mucous membranes are intact and moist neck is supple no lymphadenopathy, no JVD noted lung sounds are clear to auscultation heart regular rate rhythm, clear S1, S2 positive bowel sounds, abdomen is soft, nontender neuro patient is alert x3, no focal deficits DS: Data Data Completed and Pending Labs on day of discharge: Laboratory Results - last 24 hr 10/07/22 07:49 POC Glucose 155 H Discharge Plan Discharge Anticipated Discharge Date/Time: 10/07/22 11:28 Patient Disposition: Home, Self-Care Discharge Diagnosis: Psychogenic nonepileptic seizure Referrals: Davina Marie MD [Primary Care Provider] - 1 Week Discharge Medications: Continued Tab-A-Bing Multivitamin w-iron 15 mg iron- 400 mcg tablet 1 tab PO BEDTIME ascorbic acid (vitamin C) 500 mg capsule, extended release 500 mg PO DAILY Rx Instructions: take with iron oxycodone-acetaminophen 7.5-325 mg tablet 1 tab PO Q6H PRN (Reason: pain) acetaminophen 500 mg Tablet 1,000 mg PO Q6H PRN (Reason: Pain) clonidine HCl 0.1 mg tablet 0.1 mg PO BID albuterol sulfate [ProAir HFA] 90 mcg/actuation HFA aerosol inhaler 2 puff inhalation Q6H PRN (Reason: Shortness Of Breath) cetirizine 10 mg tablet 10 mg PO BEDTIME docusate sodium [DOK] 100 mg capsule 100 mg PO BID duloxetine 30 mg capsule,delayed release(DR/EC) 30 mg PO BEDTIME montelukast 10 mg tablet 10 mg PO BEDTIME metoprolol tartrate 50 mg tablet 50 mg PO BID atorvastatin 40 mg tablet 40 mg PO BEDTIME Eliquis 5 mg tablet 5 mg PO BID Patient Comments: pt not taking currently. has procedure on 10/08/22 losartan 100 mg tablet 100 mg PO DAILY cyanocobalamin (vitamin B-12) 500 mcg tablet 500 mcg PO DAILY ferrous sulfate [FeroSul] 325 mg (65 mg iron) tablet 325 mg PO DAILY Rx Instructions: take with water omeprazole 20 mg capsule,delayed release(DR/EC) 40 mg PO BID ergocalciferol (vitamin D2) 1,250 mcg (50,000 unit) capsule 1,250 mcg PO FR@0900 furosemide 20 mg tablet 10 mg PO DAILY topiramate 100 mg tablet 100 mg PO BEDTIME Advair HFA 115-21 mcg/actuation HFA aerosol inhaler 2 puff inhalation BID 30 Days Qty: 1 6RF amlodipine 5 mg tablet 5 mg PO DAILY Discontinued cephalexin 500 mg capsule 1,000 mg PO Q8H Discharge Orders: Discharge Order (Routine); Ordered 10/07/22 Ordered By: Lisbeth Elizabeth Diet: Advance to usual diet Activity on Discharge: As tolerated Stand Alone Forms: Patient Portal Discharge page Care Plan Goals: no further seizure episodes Health Concerns: Psychogenic nonepileptic seizure Plan of Treatment: Follow-up with primary care provider as needed Follow-up with neurologist as needed Take all medications as prescribed Continue safety measures for any type of seizure/pseudo seizure activity continue to hold your Eliquis until after your scheduled nerve block on 10/08/2022 Assessment: see discharge summary
[2022-10-07 11:52] VITALS: PULSE 78; RESP 18; O2SAT 96
--- NOTE | 2022-10-07 11:59 | MHC.CM.PN ---
Patient is discharged to home self care today. She has arranged for transportation home.
== END 2022-10-07 12:57 | disposition home or self-care (01) ==
LOC: HO.ED 22:10 → HO.EDOVER 22:43 → HO.S3 10-06 00:41
PROVIDERS: Emergency Medicine; Admitting Provider Internal Medicine; Emergency Provider Emergency Medicine; PCP Student in an Organized Health Care Education/Training Program; Visit Provider Nurse Practitioner Acute Care
DX: R56.9 Unspecified convulsions (principal); J45.41 Moderate persistent asthma with (acute) exacerbation; I48.91 Unspecified atrial fibrillation; Z79.01 Long term (current) use of anticoagulants; E66.01 Morbid (severe) obesity due to excess calories; Z68.42 Body mass index [BMI] 45.0-49.9, adult; I10 Essential (primary) hypertension; G47.33 Obstructive sleep apnea (adult) (pediatric)
CPT/HCPCS: 36415; 70450; 74176; 80048; 80076; 81001; 82947; 83605; 83735; 85025; 85027; 87086; 93005; 94640; 94660; 96372; 96374; 96375; 96376; 99221; 99285; J1650; J2060; J2270; J2405; J2920

== ENCOUNTER 2022-10-08 05:59 | Outpatient (REF) | payer MEDICAID, SELFPAY | END 2022-10-08 06:00 | disposition home or self-care (01) | LOC: CF 05:59 | PROVIDERS: Visit Provider Anesthesiology | DX: Z13.89 Encounter for screening for other disorder (principal) | CPT/HCPCS: J2795 ==

== ENCOUNTER → 2022-10-17 10:37 | Outpatient (BNVA) | payer MEDICAID, SELFPAY | PROVIDERS: PCP Student in an Organized Health Care Education/Training Program; Visit Provider Internal Medicine Pulmonary Disease | DX: J45.909 Unspecified asthma, uncomplicated (principal); G47.33 Obstructive sleep apnea (adult) (pediatric) | CPT/HCPCS: 99212 ==

== ENCOUNTER 2022-10-29 06:18 | Outpatient (REF) | payer MEDICAID, SELFPAY ==
--- NOTE | ~2022-10-29 | FL_ITS ---
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 Sukhi Soriano. Fluoroscopy Time: 0.6 minutes. Cumulative Dose: 17.2 mGy. DAP: 4.68 Gycm2. Images: 7. FINDINGS: There are multiple spinal needles along the superior and superior medial left iliac crest. There is contrast seen in the periosteal soft tissues. No visible vascular communication. FL/FL guidance in treatment room IMPRESSION: Fluoroscopy for pain management procedures.
== END 2022-10-29 06:19 | disposition home or self-care (01) ==
LOC: CF 06:18
PROVIDERS: Visit Provider Anesthesiology
DX: G58.8 Other specified mononeuropathies (principal)
CPT/HCPCS: 64450; J2795

== ENCOUNTER → 2022-10-31 11:48 | Outpatient (BNVA) | payer MEDICAID, SELFPAY | PROVIDERS: PCP Student in an Organized Health Care Education/Training Program; Visit Provider Nurse Practitioner Family ==

== ENCOUNTER 2022-11-07 17:23 | Emergency (ER) | payer MEDICAID, SELFPAY ==
--- NOTE | ~2022-11-07 | US_ITS ---
EXAMINATION: US VENOUS WITH DOPPLER UPPER EXTREMITY, LEFT CLINICAL INFORMATION: Pain and swelling left upper extremity COMPARISON: None available. TECHNIQUE: Ultrasound of the upper extremity is performed using compression sonography and color and pulse Doppler flow with assessment of augmentation of flow. There is also imaging and Doppler assessment of the jugular and subclavian veins. Spectral analysis with color-flow imaging is performed. FINDINGS: Respiratory variation, normal compression, and augmented flow are noted throughout the upper extremity including the axillary, brachial, cubital, and radial and ulnar veins. There is normal flow in the internal jugular and subclavian veins. There is no visible deep or superficial thrombophlebitis. If the patient's symptoms progress, a followup ultrasound in 5 -7 days might be of value to exclude proximal propagation from a nonvisualized distal arm vein. US/US venous duplex UE LT IMPRESSION: No DVT demonstrated in left upper extremity.
--- NOTE | ~2022-11-07 | XR_ITS ---
EXAMINATION: XR CERVICAL SPINE CLINICAL INFORMATION: Neck pain. COMPARISON: None available. TECHNIQUE: 3 views of the cervical spine were obtained. FINDINGS: There is mild straightening of cervical lordosis. There is loss of C4-C5, C5-C6 and C6-C7 disc heights with ventral spondylosis at the C4-C5 and C5-C6 disc levels. No visible acute fracture, dislocation or subluxation seen. The prevertebral soft tissues are normal. XR/XR cervical spine 3V IMPRESSION: Degenerative disc changes C4-C5, C5-C6 and C6-C7 disc levels with ventral spondylosis. No visible acute fracture or dislocation seen.
[2022-11-07 17:25] VITALS: BP 138/90; PULSE 67; RESP 18; TEMP 36.8; O2SAT 98; BMI 46.5
--- NOTE | 2022-11-07 17:33 | ED.BACK ---
HPI - Back Pain/Injury General Chief Complaint: Back Pain/Injury Stated Complaint: neck and shoulder spasms,right flank pain Related Data Home Medications Medication Instructions Recorded Confirmed albuterol sulfate 90 mcg/actuation 2 puff inhalation Q6H PRN 04/27/20 10/06/22 aerosol inhaler (ProAir HFA) Shortness Of Breath cetirizine 10 mg tablet 10 mg PO BEDTIME 04/27/20 10/06/22 docusate sodium 100 mg capsule 100 mg PO BID 04/27/20 10/06/22 (DOK) duloxetine 30 mg capsule,delayed 30 mg PO BEDTIME 04/27/20 10/06/22 release metoprolol tartrate 50 mg tablet 50 mg PO BID 04/27/20 10/06/22 montelukast 10 mg tablet 10 mg PO BEDTIME 04/27/20 10/06/22 clonidine HCl 0.1 mg tablet 0.1 mg PO BID 06/05/20 10/05/22 apixaban 5 mg tablet (Eliquis) 5 mg PO BID 06/28/20 10/05/22 atorvastatin 40 mg tablet 40 mg PO BEDTIME 06/28/20 10/05/22 losartan 100 mg tablet 100 mg PO DAILY 06/28/20 10/05/22 furosemide 20 mg tablet 10 mg PO DAILY 12/25/21 10/06/22 topiramate 100 mg tablet 100 mg PO BEDTIME 12/25/21 10/05/22 cyanocobalamin (vitamin B-12) 500 500 mcg PO DAILY 01/08/22 10/06/22 mcg tablet ergocalciferol (vitamin D2) 1,250 1,250 mcg PO FR@0900 01/08/22 10/06/22 mcg (50,000 unit) capsule ferrous sulfate 325 mg (65 mg 325 mg PO DAILY 01/08/22 10/06/22 iron) tablet (FeroSul) omeprazole 20 mg capsule,delayed 40 mg PO BID 01/08/22 10/06/22 release amlodipine 5 mg tablet 5 mg PO DAILY 09/24/22 10/05/22 multivitamin-iron sulfate 15 1 tab PO BEDTIME 10/05/22 10/05/22 mg-folic acid 400 mcg tablet (Tab-A-Bing Multivitamin w-iron) ascorbic acid (vitamin C) 500 mg 500 mg PO DAILY 10/06/22 10/06/22 capsule,extended release Previous Rx's Medication Instructions Recorded fluticasone propionate 115 2 puff inhalation BID 30 days #1 ea 04/17/22 mcg-salmeterol 21 mcg/actuation HFA inhaler (Advair HFA) albuterol sulfate 1.25 mg/3 mL 2.5 mg (6 mL) inhalation Q4-6H PRN 10/17/22 solution for nebulization shortness of breath or wheezing 30 days #270 mL ipratropium 0.5 mg-albuterol 3 mg 3 ml inhalation Q4-6H PRN wheezing 10/17/22 (2.5 mg base)/3 mL nebulization 30 days #270 mL soln Allergies Allergy/AdvReac Type Severity Reaction Status Date / Time aspirin AdvReac Mild mild Verified 10/31/22 11:49 vaginal bleeding PMFSH Past Medical History Medical History Asthma Bleeding disorder COVID-19 Gout High cholesterol History of gastric ulcer Hypertension Lab test positive for detection of COVID-19 virus (~11/2019) Left inguinal hernia (~2013) Morbid obesity with BMI of 45.0-49.9, adult On anticoagulant therapy On beta christina at home SANDEE (obstructive sleep apnea) Osteoarthritis of knees, bilateral Seizure Surgical History H/O umbilical hernia repair (07/25/06) History of back surgery Hx of endoscopy S/P partial hysterectomy (11/10/18) Family History Family History Father Hx of diabetes insipidus Mother No problems noted. Social History Social History Household Members: Family and Children Housing: House Alcohol intake: never Patient Tobacco Use Status: Never used Tobacco e-Cigarette/Vaping Use: Never Used Second Hand Smoke Exposure: No Advance Directives Date on File: 01/24/21 service: No Current occupational status: unemployed Current occupation: right handed Physical Exam Vital Signs: Vital Signs: Last Vital Signs Temp 98.3 F 11/07/22 17:25 Pulse 67 11/07/22 17:25 Resp 18 11/07/22 17:25 BP 138/90 H 11/07/22 17:25 Pulse Ox 98 11/07/22 17:25 O2 Del Method Room Air 11/07/22 17:25 BMI result Body Mass Index 46.5 Discharge Plan Discharge Prescriptions: No Action albuterol sulfate 1.25 mg/3 mL solution for nebulization 2.5 mg inhalation Q4-6H PRN (Reason: shortness of breath or wheezing) 30 Days Qty: 270 6RF Tab-A-Bing Multivitamin w-iron 15 mg iron- 400 mcg tablet 1 tab PO BEDTIME ascorbic acid (vitamin C) 500 mg capsule, extended release 500 mg PO DAILY Rx Instructions: take with iron clonidine HCl 0.1 mg tablet 0.1 mg PO BID albuterol sulfate [ProAir HFA] 90 mcg/actuation HFA aerosol inhaler 2 puff inhalation Q6H PRN (Reason: Shortness Of Breath) cetirizine 10 mg tablet 10 mg PO BEDTIME docusate sodium [DOK] 100 mg capsule 100 mg PO BID duloxetine 30 mg capsule,delayed release(DR/EC) 30 mg PO BEDTIME montelukast 10 mg tablet 10 mg PO BEDTIME metoprolol tartrate 50 mg tablet 50 mg PO BID atorvastatin 40 mg tablet 40 mg PO BEDTIME Eliquis 5 mg tablet 5 mg PO BID Patient Comments: pt not taking currently. has procedure on 10/08/22 losartan 100 mg tablet 100 mg PO DAILY cyanocobalamin (vitamin B-12) 500 mcg tablet 500 mcg PO DAILY ferrous sulfate [FeroSul] 325 mg (65 mg iron) tablet 325 mg PO DAILY Rx Instructions: take with water omeprazole 20 mg capsule,delayed release(DR/EC) 40 mg PO BID ergocalciferol (vitamin D2) 1,250 mcg (50,000 unit) capsule 1,250 mcg PO FR@0900 furosemide 20 mg tablet 10 mg PO DAILY topiramate 100 mg tablet 100 mg PO BEDTIME Advair HFA 115-21 mcg/actuation HFA aerosol inhaler 2 puff inhalation BID 30 Days Qty: 1 6RF amlodipine 5 mg tablet 5 mg PO DAILY ipratropium-albuterol 0.5 mg-3 mg(2.5 mg base)/3 mL solution for nebulization 3 ml inhalation Q4-6H PRN (Reason: wheezing) 30 Days Qty: 270 6RF
--- NOTE | 2022-11-07 20:04 | PC.NURSE ---
Away at ultrasound.
--- NOTE | 2022-11-07 20:16 | ED.GENADULT ---
HPI - General Adult General Chief complaint: Back Pain/Injury Stated complaint: neck and shoulder spasms,right flank pain Time Seen by Provider: 11/07/22 19:22 Source: patient and EMS Mode of arrival: EMS Limitations: no limitations History of Present Illness HPI narrative: 52-year-old female PMH significant for epilepsy, hypertension, paroxysmal AFib, morbid obesity, CVA with left hemiparesis. Patient came in for evaluation of left arm swelling and pain with neck pain, patient declined any history of trauma patient's symptoms started 7 days ago, declined any fever chills. No CP, no SOB. Patient is known to have right kidney stone complain of intermittent mild right flank pain. Related Data Home Medications Medication Instructions Recorded Confirmed albuterol sulfate 90 mcg/actuation 2 puff inhalation Q6H PRN 04/27/20 10/06/22 aerosol inhaler (ProAir HFA) Shortness Of Breath cetirizine 10 mg tablet 10 mg PO BEDTIME 04/27/20 10/06/22 docusate sodium 100 mg capsule 100 mg PO BID 04/27/20 10/06/22 (DOK) duloxetine 30 mg capsule,delayed 30 mg PO BEDTIME 04/27/20 10/06/22 release metoprolol tartrate 50 mg tablet 50 mg PO BID 04/27/20 10/06/22 montelukast 10 mg tablet 10 mg PO BEDTIME 04/27/20 10/06/22 clonidine HCl 0.1 mg tablet 0.1 mg PO BID 06/05/20 10/05/22 apixaban 5 mg tablet (Eliquis) 5 mg PO BID 06/28/20 10/05/22 atorvastatin 40 mg tablet 40 mg PO BEDTIME 06/28/20 10/05/22 losartan 100 mg tablet 100 mg PO DAILY 06/28/20 10/05/22 furosemide 20 mg tablet 10 mg PO DAILY 12/25/21 10/06/22 topiramate 100 mg tablet 100 mg PO BEDTIME 12/25/21 10/05/22 cyanocobalamin (vitamin B-12) 500 500 mcg PO DAILY 01/08/22 10/06/22 mcg tablet ergocalciferol (vitamin D2) 1,250 1,250 mcg PO FR@0900 01/08/22 10/06/22 mcg (50,000 unit) capsule ferrous sulfate 325 mg (65 mg 325 mg PO DAILY 01/08/22 10/06/22 iron) tablet (FeroSul) omeprazole 20 mg capsule,delayed 40 mg PO BID 01/08/22 10/06/22 release amlodipine 5 mg tablet 5 mg PO DAILY 09/24/22 10/05/22 multivitamin-iron sulfate 15 1 tab PO BEDTIME 10/05/22 10/05/22 mg-folic acid 400 mcg tablet (Tab-A-Bing Multivitamin w-iron) ascorbic acid (vitamin C) 500 mg 500 mg PO DAILY 10/06/22 10/06/22 capsule,extended release Previous Rx's Medication Instructions Recorded fluticasone propionate 115 2 puff inhalation BID 30 days #1 ea 04/17/22 mcg-salmeterol 21 mcg/actuation HFA inhaler (Advair HFA) albuterol sulfate 1.25 mg/3 mL 2.5 mg (6 mL) inhalation Q4-6H PRN 10/17/22 solution for nebulization shortness of breath or wheezing 30 days #270 mL ipratropium 0.5 mg-albuterol 3 mg 3 ml inhalation Q4-6H PRN wheezing 10/17/22 (2.5 mg base)/3 mL nebulization 30 days #270 mL soln ibuprofen 800 mg tablet 600 mg PO TID PRN pain #10 tabs 11/07/22 Allergies Allergy/AdvReac Type Severity Reaction Status Date / Time aspirin AdvReac Mild mild Verified 10/31/22 11:49 vaginal bleeding Review of Systems Review of Systems: All other systems are reviewed and are negative Constitutional: Reports as per HPI and Reports no additional constitutional complaints Eyes: Reports as per HPI and Reports no additional eye complaints Reports system reviewed and no additional complaints, except as documented Cardiovascular: Reports as per HPI and Reports no additional cardiovascular complaints Respiratory: Reports as per HPI and Reports no additional respiratory complaints Gastrointestinal: Reports as per HPI and Reports no additional gastrointestinal complaints Genitourinary: Reports no additional female genitourinary complaints Musculoskeletal: Reports no additional musculoskeletal complaints Skin/Breast: Reports system reviewed and no additional complaints, except as docu Psychiatric: Reports no additional psychiatric complaints Endocrine: Reports no additional endocrine complaints Hematologic/Lymphatic: Reports no additional hematologic/lymphatic complaints Allergic/Immunologic: Reports no additional allergic/immunologic complaints Reports system reviewed and no additional complaints, except as documented and Reports Abnormal speech present PMF Past Medical History Medical History Asthma Bleeding disorder COVID-19 Gout High cholesterol History of gastric ulcer Hypertension Lab test positive for detection of COVID-19 virus (~11/2019) Left inguinal hernia (~2013) Morbid obesity with BMI of 45.0-49.9, adult On anticoagulant therapy On beta christina at home SANDEE (obstructive sleep apnea) Osteoarthritis of knees, bilateral Seizure Surgical History H/O umbilical hernia repair (07/25/06) History of back surgery Hx of endoscopy S/P partial hysterectomy (11/10/18) Family History Family History Father Hx of diabetes insipidus Mother No problems noted. Social History Social History Household Members: Family and Children Housing: House Alcohol intake: never Patient Tobacco Use Status: Never used Tobacco e-Cigarette/Vaping Use: Never Used Second Hand Smoke Exposure: No Advance Directives: Yes Advance Directives on File: Yes Advance Directives Date on File: 01/24/21 service: No Current occupational status: unemployed Current occupation: right handed Physical Exam ED Vital Signs: Vital Signs - 24 hr 11/07/22 17:25 Temperature 98.3 F Pulse Rate 67 Respiratory Rate 18 Blood Pressure 138/90 H Pulse Oximetry 98 Oxygen Delivery Method Room Air BMI result Body Mass Index 46.5 Vital signs have been reviewed as appeared to be correct. Blood pressure normal. Heart rate normal. Respiration rate normal. Temperature normal. Oxygen saturation normal. Appearance: Alert. Oriented X3. No acute distress. Head: Normal external exam. Normocephalic. Atraumatic. No [place] signs noted. No raccoon eyes noted Eyes: PERRLA. EOMI. Conjunctiva and sclera normal. Eyelids normal. ENT: TM's Normal. Pharynx normal. Uvula midline. Moist mucous membranes. No trismus noted. No drooling noted. No muffled voice noted. Neck: Normal inspection. Neck supple. FROM. No adenopathy. Thyroid Normal. No meningeal signs. No neck mass noted. CVS: Normal heart rate and rhythm. Heart sound normal. No murmurs noted. Pulses normal throughout. Respiratory: No respiratory distress. Painless inspiration. Breath sounds normal. No wheezes/rales/rhonchi noted. Chest nontender. No accessory muscle usage noted or decreased air movement noted. Abdomen: Soft and nontender. Bowel sounds normal in all 4 quadrants. No distention noted. No organomegaly noted. No visible injury noted. Back: No CVA tenderness. Full range of motion noted. Skin: Skin warm and dry. Normal skin color. Normal skin turgor. No rashes/lesions/lacerations noted. Extremities: No lower extremity edema. Extremities exhibit normal range of motion. Extremities nontender. Neuro: Oriented X 3. Cranial nerve exam: II-XII are grossly intact Pre-existing left hemiparesis, No sensory deficit. Reflexes normal. Course Course Course Narrative: 52-year-old female came in with left arm swelling and pain, no DVT on ultrasound, no elevation of D-dimer. Patient feels better with pain medication. Right flank pain reviewing old EKG patient has a small nonobstructing kidney stones, on exam there is no CVA tenderness. Medications Administered Discontinued Medications Generic Name Dose Route Start Last Admin Trade Name Freq PRN Reason Stop Dose Admin Oxycodone HCl 10 mg 11/07/22 19:47 11/07/22 20:44 Oxycodone Hcl Immed Release 5 Mg Tablet PO 11/07/22 19:48 10 mg ONCE ONE Administration Medical Decision Making Differential Diagnosis Differential Diagnoses: The differential diagnosis associated with the presentation includes (DVT of the left arm, cervical radiculopathy, UTI.) Admission/Observation Consideration of admission/observation: Escalation of care including admission/observation considered Lab Data [facility] Lab Attestation statement: I reviewed the patient's lab results. 11/07/22 20:42 11/07/22 20:42 Labs: Lab Results 11/07/22 11/07/22 11/07/22 Range/Units 19:59 20:42 20:42 WBC 11.3 H (4.8-10.8) X10*3/uL RBC 4.63 (4.20-5.50) X10*6/uL Hgb 13.2 (12.0-16.0) g/dl Hct 40.5 (37.0-47.0) % MCV 87.5 (80.0-98.0) fL MCH 28.5 (27.0-33.0) pg MCHC 32.6 (31.0-35.0) g/dl RDW 13.8 (11.0-16.0) % Plt Count 422 H (160-400) X10*3/uL MPV 10.2 (9.4-12.3) fL Immature Gran % (Auto) 0.2 (0.0-0.4) % Neut % (Auto) 54.2 (45-73) % Lymph % (Auto) 35.2 (20-40) % [place] % (Auto) 7.3 (2-11) % Eos % (Auto) 2.7 (0-4) % Baso % (Auto) 0.4 (0-2) % Lymph # (Auto) 4.0 (1.2-4.9) X10*3/uL [place] # (Auto) 0.8 (0.1-1.2) X10*3/uL Eos # (Auto) 0.3 (0.0-0.4) X10*3/uL Baso # (Auto) 0.0 (0.0-0.2) X10*3/uL Abs Immat Gran (auto) 0.02 (0.00-0.03) X10*3/uL Absolute Neuts (auto) 6.2 (2.0-8.3) x10*3/uL Absolute Nucleated RBC 0.000 (0.0-0.012) X10*3/uL Nucleated RBC % (auto) 0.0 (0.0-0.2) /100WBC PT (10.0-13.1) SEC INR (0.9-1.1) APTT (26.0-36.4) SEC D-Dimer High Sensitivty NG/ML Sodium 143 (135-145) mmol/L Potassium 4.2 (3.3-5.1) mmol/L Chloride 109 H (96-108) mmol/L Carbon Dioxide 25 (22-29) mmol/L Anion Gap 13 (12-20) BUN 21 H (9-16) mg/dL Creatinine 0.79 (0.5-1.4) mg/dL Estim Creat Clear Calc 130.2 Estimated GFR > 60 Random Glucose 90 (60-115) mg/dL Calcium 9.2 (8.4-10.2) mg/dL Total Bilirubin 0.4 (0.0-1.0) mg/dL Direct Bilirubin 0.1 (0.0-0.5) mg/dL AST 19 (5-31) U/L ALT 25 (0-31) U/L Alkaline Phosphatase 183 H (39-117) U/L Troponin I High Sens (<3.5-17.0) ng/L Total Protein 7.5 (6.5-8.0) g/dL Albumin 4.4 (3.5-5.0) g/dL Lipase 10 (8-78) U/L Urine Color Dark Yellow Urine Appearance Cloudy Urine pH 5.5 (5.0-9.0) Ur Specific [place] >= 1.030 H (1.005-1.025) Urine Protein 100 (2+) H (Neg-Trace) mg/dL Urine Glucose (UA) Negative (Negative) mg/dL Urine Ketones Trace (Negative) mg/dL Urine Blood Trace H (Negative) Urine Nitrite Negative (Negative) Ur Leukocyte Esterase Small (1+) H (Negative) Urine RBC 3-5 H (0-2) /HPF Urine WBC 6-10 (0-5) /HPF Ur Squamous Epith Cells >20 (0-2) /HPF Urine Bacteria 4+ (None Seen) Hyaline Casts 0-2 (0-2) /LPF 11/07/22 11/07/22 Range/Units 20:42 20:42 WBC (4.8-10.8) X10*3/uL RBC (4.20-5.50) X10*6/uL Hgb (12.0-16.0) g/dl Hct (37.0-47.0) % MCV (80.0-98.0) fL MCH (27.0-33.0) pg MCHC (31.0-35.0) g/dl RDW (11.0-16.0) % Plt Count (160-400) X10*3/uL MPV (9.4-12.3) fL Immature Gran % (Auto) (0.0-0.4) % Neut % (Auto) (45-73) % Lymph % (Auto) (20-40) % [place] % (Auto) (2-11) % Eos % (Auto) (0-4) % Baso % (Auto) (0-2) % Lymph # (Auto) (1.2-4.9) X10*3/uL [place] # (Auto) (0.1-1.2) X10*3/uL Eos # (Auto) (0.0-0.4) X10*3/uL Baso # (Auto) (0.0-0.2) X10*3/uL Abs Immat Gran (auto) (0.00-0.03) X10*3/uL Absolute Neuts (auto) (2.0-8.3) x10*3/uL Absolute Nucleated RBC (0.0-0.012) X10*3/uL Nucleated RBC % (auto) (0.0-0.2) /100WBC PT 13.3 H (10.0-13.1) SEC INR 1.2 H (0.9-1.1) APTT 34.1 (26.0-36.4) SEC D-Dimer High Sensitivty 240 NG/ML Sodium (135-145) mmol/L Potassium (3.3-5.1) mmol/L Chloride (96-108) mmol/L Carbon Dioxide (22-29) mmol/L Anion Gap (12-20) BUN (9-16) mg/dL Creatinine (0.5-1.4) mg/dL Estim Creat Clear Calc Estimated GFR Random Glucose (60-115) mg/dL Calcium (8.4-10.2) mg/dL Total Bilirubin (0.0-1.0) mg/dL Direct Bilirubin (0.0-0.5) mg/dL AST (5-31) U/L ALT (0-31) U/L Alkaline Phosphatase (39-117) U/L Troponin I High Sens < 2.7 (<3.5-17.0) ng/L Total Protein (6.5-8.0) g/dL Albumin (3.5-5.0) g/dL Lipase (8-78) U/L Urine Color Urine Appearance Urine pH (5.0-9.0) Ur Specific [place] (1.005-1.025) Urine Protein (Neg-Trace) mg/dL Urine Glucose (UA) (Negative) mg/dL Urine Ketones (Negative) mg/dL Urine Blood (Negative) Urine Nitrite (Negative) Ur Leukocyte Esterase (Negative) Urine RBC (0-2) /HPF Urine WBC (0-5) /HPF Ur Squamous Epith Cells (0-2) /HPF Urine Bacteria (None Seen) Hyaline Casts (0-2) /LPF Independent Interpretation I performed an independent interpretation of an: Ultrasound (Left upper extremities: No DVT.) Radiology Impression Discussion of test interpretation with radiology: I have reviewed the radiologist's reading. Discharge Plan Discharge Clinical Impression: Neck pain, Left arm pain Clinical Impression: (Ruled Out): Chronic pain syndrome Patient Disposition: Home, Self-Care Instructions: Arm Pain (ED), Neck Pain (ED) Prescriptions: New ibuprofen 800 mg tablet 600 mg PO TID PRN (Reason: pain) Qty: 10 0RF No Action albuterol sulfate 1.25 mg/3 mL solution for nebulization 2.5 mg inhalation Q4-6H PRN (Reason: shortness of breath or wheezing) 30 Days Qty: 270 6RF Tab-A-Bing Multivitamin w-iron 15 mg iron- 400 mcg tablet 1 tab PO BEDTIME ascorbic acid (vitamin C) 500 mg capsule, extended release 500 mg PO DAILY Rx Instructions: take with iron clonidine HCl 0.1 mg tablet 0.1 mg PO BID albuterol sulfate [ProAir HFA] 90 mcg/actuation HFA aerosol inhaler 2 puff inhalation Q6H PRN (Reason: Shortness Of Breath) cetirizine 10 mg tablet 10 mg PO BEDTIME docusate sodium [DOK] 100 mg capsule 100 mg PO BID duloxetine 30 mg capsule,delayed release(DR/EC) 30 mg PO BEDTIME montelukast 10 mg tablet 10 mg PO BEDTIME metoprolol tartrate 50 mg tablet 50 mg PO BID atorvastatin 40 mg tablet 40 mg PO BEDTIME Eliquis 5 mg tablet 5 mg PO BID Patient Comments: pt not taking currently. has procedure on 10/08/22 losartan 100 mg tablet 100 mg PO DAILY cyanocobalamin (vitamin B-12) 500 mcg tablet 500 mcg PO DAILY ferrous sulfate [FeroSul] 325 mg (65 mg iron) tablet 325 mg PO DAILY Rx Instructions: take with water omeprazole 20 mg capsule,delayed release(DR/EC) 40 mg PO BID ergocalciferol (vitamin D2) 1,250 mcg (50,000 unit) capsule 1,250 mcg PO FR@0900 furosemide 20 mg tablet 10 mg PO DAILY topiramate 100 mg tablet 100 mg PO BEDTIME Advair HFA 115-21 mcg/actuation HFA aerosol inhaler 2 puff inhalation BID 30 Days Qty: 1 6RF amlodipine 5 mg tablet 5 mg PO DAILY ipratropium-albuterol 0.5 mg-3 mg(2.5 mg base)/3 mL solution for nebulization 3 ml inhalation Q4-6H PRN (Reason: wheezing) 30 Days Qty: 270 6RF
--- NOTE | 2022-11-07 20:22 | ECG_ITS ---
Test Reason : ARM PAIN Blood Pressure : / mmHG Vent. Rate : 054 BPM Atrial Rate : 054 BPM P-R Int : 156 ms QRS Dur : 098 ms QT Int : 470 ms P-R-T Axes : 050 -30 007 degrees QTc Int : 445 ms Sinus bradycardia Left axis deviation Abnormal ECG When compared with ECG of 05-OCT-2022 15:54, No significant change was found Referred By: Jeovanny Hinton Electronically Signed By:EVER VASQUEZ
[2022-11-07 20:30] LABS: Appearance Urine Cloudy; Color Urine Dark Yellow; Glucose Urine UA Negative (Negative); Leukocyte Esterase Urine Small (1+) (Negative); Nitrite Urine Negative (Negative); PH 5.5 (5.0-9.0); Specific Gravity - Urine >= 1.030 (1.005-1.025); UMIC TRIGGER UACC YES; Urine Blood Trace (Negative); Urine Ketones Trace mg/dL (Negative); Urine Protein 100 (2+) mg/dL (Neg-Trace)
[2022-11-07] MEDS: oxyCODONE HCl Immed Release 5 MG TABLET 10 MG PO (20:44)
[2022-11-07 20:56] LABS: MANUAL DIFF FLAG NO
[2022-11-07 20:57] LABS: Basophils Percent Auto 0.4 % (0-2); Eosinophils Absolute Auto 0.3 X10*3/uL (0.0-0.4); Eosinophils Percent Auto 2.7 % (0-4); Hematocrit 40.5 % (37.0-47.0); Hemoglobin 13.2 g/dl (12.0-16.0); Imm Gran Abs Auto 0.02 X10*3/uL (0.00-0.03); Imm Gran Pct Auto 0.2 % (0.0-0.4); Lymphocytes Percent Auto 35.2 % (20-40); Mean Corpuscular HGB Conc 32.6 g/dl (31.0-35.0); Mean Corpuscular Hemoglobin 28.5 pg (27.0-33.0); Mean Corpuscular Volume 87.5 fL (80.0-98.0); Mean Platelet Volume 10.2 fL (9.4-12.3); Monocytes Absolute Auto 0.8 X10*3/uL (0.1-1.2); Monocytes Percent Auto 7.3 % (2-11); Neutrophils Absolute Auto 6.2 x10*3/uL (2.0-8.3); Neutrophils Percent Auto 54.2 % (45-73); Platelet Count 422 X10*3/uL (160-400); Red Blood Count 4.63 X10*6/uL (4.20-5.50); Red Cell Distribution Width 13.8 % (11.0-16.0); White Blood Count 11.3 X10*3/uL (4.8-10.8)
[2022-11-07 20:59] LABS: Bacteria Urine 4+ (None Seen); Hyaline Casts Urine 0-2 /LPF (0-2); Squamous Epithelial Cell Urine >20 /HPF (0-2); UACC Culture Trigger YES
[2022-11-07 21:03] LABS: INTERNATIONAL NORM RATIO 1.2 (0.9-1.1); Prothrombin Time 13.3 SEC (10.0-13.1)
[2022-11-07 21:05] LABS: D Dimer High Sensitivity 240 NG/ML
[2022-11-07 21:06] LABS: Partial Thromboplastin Time 34.1 SEC (26.0-36.4)
[2022-11-07 21:17] LABS: Alanine Aminotransferase 25 U/L (0-31); Albumin Level 4.4 g/dL (3.5-5.0); Alkaline Phosphatase 183 U/L (39-117); Anion Gap 13 (12-20); Aspartate Amino Transferase 19 U/L (5-31); Bilirubin Direct 0.1 mg/dL (0.0-0.5); Bilirubin Total 0.4 mg/dL (0.0-1.0); Blood Urea Nitrogen 21 mg/dL (9-16); Calcium 9.2 mg/dL (8.4-10.2); Carbon Dioxide 25 mmol/L (22-29); Chloride 109 mmol/L (96-108); Creatinine Clr Calc Pharmacy 130.2; Estimated Glomerular Filt Rate > 60; Glucose Random 90 mg/dL (60-115); Lipase 10 U/L (8-78); Potassium 4.2 mmol/L (3.3-5.1); Sodium 143 mmol/L (135-145); Total Protein 7.5 g/dL (6.5-8.0)
[2022-11-07 21:26] LABS: Troponin-I High Sensitivity < 2.7 ng/L (<3.5-17.0)
[2022-11-07] MEDS: Cyclobenzaprine HCl 10 MG TABLET PO (23:25)
[2022-11-07] MEDS: Gabapentin 600 MG TABLET PO (23:25)
[2022-11-07 23:29] VITALS: BP 118/72; PULSE 59; RESP 16; TEMP 36.6; O2SAT 99
== END 2022-11-07 23:50 | disposition home or self-care (01) ==
PROVIDERS: Emergency Provider Emergency Medicine
DX: M54.2 Cervicalgia (principal); I48.91 Unspecified atrial fibrillation; M79.602 Pain in left arm; R60.0 Localized edema; Z79.899 Other long term (current) drug therapy
CPT/HCPCS: 36415; 72040; 80048; 80076; 81001; 83690; 84484; 85025; 85379; 85610; 85730; 87086; 93005; 93971; 99284

== ENCOUNTER 2022-11-26 06:06 | Outpatient (REF) | payer MEDICAID, SELFPAY ==
--- NOTE | ~2022-11-26 | FL_ITS ---
EXAMINATION: XR FLUOROSCOPY WITH IMAGES CLINICAL INFORMATION: Other specified mononeuropathies. COMPARISON: None available. TECHNIQUE: Fluoroscopy Supervised By: Dr. Soriano. Fluoroscopy Time: 0.5 minutes. Cumulative Dose: 16.3 mGy. DAP: 4.45 Gycm2. Images: 6. FINDINGS: Images demonstrate needle placement and contrast injection adjacent to the left iliac crest FL/FL guidance in treatment room IMPRESSION: Fluoroscopy guidance for pain management procedure
== END 2022-11-26 06:07 | disposition home or self-care (01) ==
LOC: CF 06:06
PROVIDERS: Visit Provider Anesthesiology
DX: G58.8 Other specified mononeuropathies (principal); M47.816 Spondylosis without myelopathy or radiculopathy, lumbar region; E66.01 Morbid (severe) obesity due to excess calories; Z68.42 Body mass index [BMI] 45.0-49.9, adult; G89.4 Chronic pain syndrome
CPT/HCPCS: 64450

== ENCOUNTER → 2022-12-02 10:51 | Outpatient (BNVA) | payer MEDICAID, SELFPAY | PROVIDERS: Visit Provider Anesthesiology | DX: M47.816 Spondylosis without myelopathy or radiculopathy, lumbar region (principal); E66.01 Morbid (severe) obesity due to excess calories; G89.4 Chronic pain syndrome; G58.8 Other specified mononeuropathies | CPT/HCPCS: 99212 ==

== ENCOUNTER 2022-12-12 11:34 | Day surgery (SDC) | payer MEDICAID, SELFPAY ==
[2022-12-09 14:45] VITALS: BMI 45.0
--- NOTE | 2022-12-11 12:00 | HO.ANESPROP2 ---
Documented by User: Fariha King NP 12/11/22 12:03 HPI - Anesthesia Eval Consult details Narrative: 52yo F for Spinal Cord Stimulation Trial s/p periph nerve stim 08/2022 with GA-LMA 4 Eliquis for ? afib PMFSH Active Problems Active Problems: All Active Problems (Updated 11/08/22 @ 00:01 by Background Daemon) SANDEE (obstructive sleep apnea) (Acute) Trigger finger, left ring finger (Acute) Cluneal neuropathy (Acute) Mononeuropathy, unspecified (Acute) Osteoarthritis, hand (Acute) HTN (hypertension), benign (Acute) Arthritis of knee (Acute) Depression (Acute) Anemia (Acute) GERD with esophagitis (Acute) Dysphagia, pharyngoesophageal phase (Acute) Abdominal bloating (Acute) Spondylosis of lumbar region without myelopathy or radiculopathy (Acute) Carotid stenosis, bilateral (Acute) Headache (Acute) Bilateral knee pain (Acute) Chronic pain syndrome (Acute) Osteoarthritis of knees, bilateral (Acute) Spondylosis of lumbar joint (Acute) Asthma (Acute) Environmental allergies (Acute) Osteoarthritis of knees, bilateral (Acute) Past Medical History Medical History Asthma Bleeding disorder COVID-19 Gout High cholesterol History of gastric ulcer Hypertension Lab test positive for detection of COVID-19 virus (~11/2019) Left inguinal hernia (~2013) Morbid obesity with BMI of 45.0-49.9, adult On anticoagulant therapy On beta christina at home SANDEE (obstructive sleep apnea) Osteoarthritis of knees, bilateral Seizure Family History Family History Father Hx of diabetes insipidus Mother No problems noted. Family history of problems with anesthesia: No Surgical History Surgical History H/O umbilical hernia repair (07/25/06) History of back surgery Hx of endoscopy S/P partial hysterectomy (11/10/18) History of Problems with Anesthesia: No Social History Social History Household Members: Family and Children Housing: House Alcohol intake: never Patient Tobacco Use Status: Never used Tobacco e-Cigarette/Vaping Use: Never Used Second Hand Smoke Exposure: No Are you DNR?: No Advance Directives: No Advance Directives Information Provided: Yes Advance Directives Date on File: 01/24/21 Nutrition Risks: No Nutritional Risk service: No Current occupational status: unemployed Current occupation: right handed Meds Allergies Allergy/AdvReac Type Severity Reaction Status Date / Time aspirin AdvReac Mild mild Verified 12/02/22 10:52 vaginal bleeding Home Medications Medication Instructions Recorded Confirmed Last Taken Type albuterol sulfate 90 mcg/actuation 2 puff inhalation Q6H PRN 04/27/20 12/02/22 08/01/22 History aerosol inhaler (ProAir HFA) Shortness Of Breath cetirizine 10 mg tablet 10 mg PO BEDTIME 04/27/20 12/02/22 10/04/22 History docusate sodium 100 mg capsule 100 mg PO BID 04/27/20 12/02/22 10/05/22 09:00 History (DOK) duloxetine 30 mg capsule,delayed 30 mg PO BEDTIME 04/27/20 12/02/22 10/04/22 History release metoprolol tartrate 50 mg tablet 50 mg PO BID 04/27/20 12/02/22 10/05/22 09:00 History montelukast 10 mg tablet 10 mg PO BEDTIME 04/27/20 12/02/22 10/04/22 History clonidine HCl 0.1 mg tablet 0.1 mg PO BID 06/05/20 12/02/22 10/05/22 09:00 History apixaban 5 mg tablet (Eliquis) 5 mg PO BID 06/28/20 12/02/22 10/05/22 09:00 History atorvastatin 40 mg tablet 40 mg PO BEDTIME 06/28/20 12/02/22 10/04/22 History losartan 100 mg tablet 100 mg PO DAILY 06/28/20 12/02/22 10/05/22 09:00 History furosemide 20 mg tablet 10 mg PO DAILY 12/25/21 12/02/22 10/05/22 09:00 History topiramate 100 mg tablet 100 mg PO BEDTIME 12/25/21 12/02/22 10/04/22 History cyanocobalamin (vitamin B-12) 500 500 mcg PO DAILY 01/08/22 12/02/22 10/05/22 09:00 History mcg tablet ergocalciferol (vitamin D2) 1,250 1,250 mcg PO FR@0900 01/08/22 12/02/22 10/04/22 History mcg (50,000 unit) capsule ferrous sulfate 325 mg (65 mg 325 mg PO DAILY 01/08/22 12/02/22 10/05/22 09:00 History iron) tablet (FeroSul) omeprazole 20 mg capsule,delayed 40 mg PO BID 01/08/22 12/02/22 10/05/22 09:00 History release amlodipine 5 mg tablet 5 mg PO DAILY 09/24/22 12/02/22 10/05/22 09:00 History multivitamin-iron sulfate 15 1 tab PO BEDTIME 10/05/22 12/02/22 10/04/22 History mg-folic acid 400 mcg tablet (Tab-A-Bing Multivitamin w-iron) ascorbic acid (vitamin C) 500 mg 500 mg PO DAILY 10/06/22 12/02/22 10/05/22 09:00 History capsule,extended release Exam Exam Date and Time: December 11, 2022 1200 Height,Weight and Vital Signs: Height 5 ft 9 in Weight 138.346 kg Pertinent Lab Results Pertinent Lab Results: Laboratory Tests 11/07/22 11/07/22 20:42 20:42 WBC 11.3 H Hgb 13.2 Hct 40.5 Plt Count 422 H Sodium 143 Potassium 4.2 Chloride 109 H Carbon Dioxide 25 BUN 21 H Creatinine 0.79 Narrative Narrative: EKG 10/2022 Vent. Rate : 054 BPM ? ? Atrial Rate : 054 BPM ?? P-R Int : 156 ms? QRS Dur : 098 ms ? ? QT Int : 470 ms ? ? ? P-R-T Axes : 050 -30 007 degrees ?? QTc Int : 445 ms ? Sinus bradycardia Left axis deviation Abnormal ECG When compared with ECG of 05-OCT-2022 15:54, No significant change was found Assessment and Plan Assessment Anesthesia Assessment: Chart Reviewed Final Anesthetic Review Family History of Problems with Anesthesia: No History of Problems with Anesthesia: No Documented by User: Arvind Barroso MD 12/12/22 12:24 [facility] Past Medical History Medical History Asthma Bleeding disorder COVID-19 Gout High cholesterol History of gastric ulcer Hypertension Lab test positive for detection of COVID-19 virus (~11/2019) Left inguinal hernia (~2013) Morbid obesity with BMI of 45.0-49.9, adult On anticoagulant therapy On beta christina at home SANDEE (obstructive sleep apnea) Osteoarthritis of knees, bilateral Seizure Family History Family History Father Hx of diabetes insipidus Mother No problems noted. Surgical History Surgical History H/O umbilical hernia repair (07/25/06) History of back surgery Hx of endoscopy S/P partial hysterectomy (11/10/18) Social History Social History Household Members: Family and Children Housing: House Alcohol intake: never Patient Tobacco Use Status: Never used Tobacco e-Cigarette/Vaping Use: Never Used Second Hand Smoke Exposure: No Are you DNR?: No Advance Directives: No Advance Directives Information Provided: Yes Advance Directives Date on File: 01/24/21 Nutrition Risks: No Nutritional Risk service: No Current occupational status: unemployed Current occupation: right handed Meds Allergies Allergy/AdvReac Type Severity Reaction Status Date / Time aspirin AdvReac Mild mild Verified 12/02/22 10:52 vaginal bleeding Home Medications Medication Instructions Recorded Confirmed Last Taken Type albuterol sulfate 90 mcg/actuation 2 puff inhalation Q6H PRN 04/27/20 12/02/22 08/01/22 History aerosol inhaler (ProAir HFA) Shortness Of Breath cetirizine 10 mg tablet 10 mg PO BEDTIME 04/27/20 12/02/22 10/04/22 History docusate sodium 100 mg capsule 100 mg PO BID 04/27/20 12/02/22 10/05/22 09:00 History (DOK) duloxetine 30 mg capsule,delayed 30 mg PO BEDTIME 04/27/20 12/02/22 10/04/22 History release metoprolol tartrate 50 mg tablet 50 mg PO BID 04/27/20 12/02/22 10/05/22 09:00 History montelukast 10 mg tablet 10 mg PO BEDTIME 04/27/20 12/02/22 10/04/22 History clonidine HCl 0.1 mg tablet 0.1 mg PO BID 06/05/20 12/02/22 10/05/22 09:00 History apixaban 5 mg tablet (Eliquis) 5 mg PO BID 06/28/20 12/02/22 10/05/22 09:00 History atorvastatin 40 mg tablet 40 mg PO BEDTIME 06/28/20 12/02/22 10/04/22 History losartan 100 mg tablet 100 mg PO DAILY 06/28/20 12/02/22 10/05/22 09:00 History furosemide 20 mg tablet 10 mg PO DAILY 12/25/21 12/02/22 10/05/22 09:00 History topiramate 100 mg tablet 100 mg PO BEDTIME 12/25/21 12/02/22 10/04/22 History cyanocobalamin (vitamin B-12) 500 500 mcg PO DAILY 01/08/22 12/02/22 10/05/22 09:00 History mcg tablet ergocalciferol (vitamin D2) 1,250 1,250 mcg PO FR@0900 01/08/22 12/02/22 10/04/22 History mcg (50,000 unit) capsule ferrous sulfate 325 mg (65 mg 325 mg PO DAILY 01/08/22 12/02/22 10/05/22 09:00 History iron) tablet (FeroSul) omeprazole 20 mg capsule,delayed 40 mg PO BID 01/08/22 12/02/22 10/05/22 09:00 History release amlodipine 5 mg tablet 5 mg PO DAILY 09/24/22 12/02/22 10/05/22 09:00 History multivitamin-iron sulfate 15 1 tab PO BEDTIME 10/05/22 12/02/22 10/04/22 History mg-folic acid 400 mcg tablet (Tab-A-Bing Multivitamin w-iron) ascorbic acid (vitamin C) 500 mg 500 mg PO DAILY 10/06/22 12/02/22 10/05/22 09:00 History capsule,extended release Exam Airway Mallampati Class: III TM Dist: >3cm Neck ROM: Limited Heart: rrr Lungs: cta Assessment and Plan Assessment Anesthesia Assessment: Anesthesia Plan Discussed Final Anesthetic Review NPO: Yes ASA Class: III Final Preanesthetic Review: No Changes in Pt Med Stat, Meds/Allgs Chart Reviewed, Consent Obtained/Reviewed and Anes Risks/Benef Reviewed Patient Risk: Intermediate Procedure Risk: Intermediate Anesthetic Plan Anesthetic Plan: GA and Agree w/ Assess. and Plan Disposition: Standard PACU
[2022-12-12 12:37] VITALS: BP 130/82; PULSE 52; RESP 18; TEMP 36.4; O2SAT 97
[2022-12-12 12:46] LABS: UPreg QC Valid YES; Urine Pregnancy NEGATIVE (NEGATIVE)
[2022-12-12] MEDS: Lactated Ringers 1,000 ML 100 ML IVCONT (12:55)
--- NOTE | 2022-12-12 13:03 | MHC.SHP ---
Pre-Procedural Eval Section A Date of Service: 12/12/22 The patient is an INPATIENT: No Changes since office visit: Yes Patient answered all questions The History & Physical has been completed within 30 days and I have reviewed it.: No Section B Chief Complaint: Spondylosis without myelopathy or radiculopathy Details of Present Illness: as above Relevant Family History (Specify if Yes): No Relevant Social History: None Present Medications: None Medical History: No relevant PMH History of Previous Operations: No relevant previous surgery Allergies: Allergies Allergy/AdvReac Type Severity Reaction Status Date / Time aspirin AdvReac Mild mild Verified 12/12/22 12:52 vaginal bleeding Review of Systems Sugical H&P ROS: Negative: Cardiovascular, Respiratory, Neurological, Psychiatric, Hem-Onc, Allergic/Immunologic, Gastrointestinal, Genitourinary, Integumentary, Endocrine and Eyes/Ears/Nose/Throat and Yes, Specify: Constitution (morbid obesity) and Musculoskeletal (as above) Exam Surgical H&P Exam: Normal: HEENT, Normal: Heart, Normal: Lungs, Normal: Extremities, Normal: Skin and Normal: Neurological and Significant Findings: Abdomen (enlarged due to i/a and s/q fat) Plan Diagnosis/Plan: Unchanged I have reviewed the history and physical and performed a pertinent physical examination on my patient. No changes have occurred unless specified. Time Spent With Patient Time: Total time managing care of this patient today ___5_ minutes.
--- NOTE | 2022-12-12 13:07 | W.PM.OPN ---
Operative Note Operative Note Date of Service: 12/12/22 Narrative: Tamanna is very pleasant 52 y.o. female who came today into the operating room for trial of spinal cord stimulatoNevro for the treatment of disc degeneration, spondylosis and radiculopathy of the lumbar spine and chronic pain syndrome. Preoperatively patient received cefazolin 3 g approximately 10 minutes before the procedure. After obtaining informed consent the patient was brought to the operating room,she was positioned prone on operating table, [place] [employer] monitors were applied and the patient was moderately sedated. Time-out was performed delineating correct site, side, the nature of the procedure, patient's allergy, preoperative antibiotic if needed. All operating room staff was participating in OR time-out procedure. Patient's entire back was prepped with Chloraprep twice and draped with full body fenestrated laparoscopy drape. Sterilely draped C-arm was brought over operating field and square picture of the T12-L1 L2 and L3 vertebrae were demonstrated on the screen. Attention FIRST was concentrated on the T12- L1 epidural interspace. The location of the projection of the right pedicle center of the L2 vertebra was found on the skin using C-arm. This location was injected with mixture of lidocaine 2% and Marcaine 0.5% - 5 cc. After that 11 blade was used to make a key on the skin. 10 cm 14 gauge introducer epidural needle was inserted through the key and advanced to T12-L1 epidural interspace. The advancement of the needle was performed on anterior posterior and lateral views. Loss of resistance to air technique were used to locate epidural space., epidural lead was inserted through the needle and it was advanced to top of T8 vertebra projection slightly right to the midline. . After that the location of the projection of the LEFT pedicle center of the L2 vertebra was found on the skin using C-arm. This location was injected with mixture of lidocaine 2% and Marcaine 0.5% 5 cc. After that 11 blade was used to make a key on the skin. 10 cm 14 gauge introducer epidural needle was inserted through the key and advanced to L1- L2 epidural interspace. The advancement of the needle was performed on anterior posterior and lateral views. Guitar wire and loss of resistance to air technique were used to locate epidural space. When guitar wire was spread in the epidural fashion, epidural lead was inserted through the needle and advanced to the middle of T8 epidural interspace slightly left to the existing electrode. Impedance was checked and was satisfactory . Impedance was checked and it was found to be satisfactory. Posterior lead placement was verified by lateral x-ray. The needles were withdrawn, the stylette wires were removed from the epidural leads. The anchoring devices were dislodged on the leads and advanced to the level of the skin. The anchoring devices were sutured with two 0-0 Silk sutures per each anchor to the skin of the patient. The central fixation screw of each anchor was rotated until three clicks were heard. The leads were connected to testing device. Bacitracin ointment was applied to the entrance point of bilateral wires. Sterile dressing was applied to the patient's back. The testing device was also taped to the patient's back. the patient tolerated procedure well he was awaken and taken outside of the operating room to recovery room. she recovered uneventfully.
--- NOTE | 2022-12-12 13:20 | PC.NURSE ---
dr. khan updated by author and kirit BURNETT that patient states she had a seizure approx. 2-3 weeks ago and was brought to [facility]. Patient states one approx. every six months. took seizure medications this morning.
[2022-12-12 14:23] VITALS: BP 90/53; PULSE 62; RESP 16; TEMP 36.4; O2SAT 98
--- NOTE | 2022-12-12 14:29 | P.BOP_ITS ---
Brief Operative Note Date of Service: 12/12/22 Pre-op diagnosis: spondylosis lumbar , disc degeneration lumbar, chronic pain syndrome. Post-op diagnosis: same Procedure: trial of SCS Comfort Surgeon: Sukhi Soriano MD Anesthesia: MAC Was an Wet Primer Powder Blender used for this Procedure?: No Estimated blood loss (mL): 0 Condition: stable Disposition: PACU
[2022-12-12 14:38] VITALS: BP 97/51; PULSE 51; RESP 16; O2SAT 98
[2022-12-12 14:53] VITALS: BP 107/63; PULSE 50; RESP 16; TEMP 36.1; O2SAT 96
== END 2022-12-12 15:54 | disposition home or self-care (01) ==
PROVIDERS: Anesthesiology; PCP Student in an Organized Health Care Education/Training Program; Visit Provider Anesthesiology
PROC: (CPT 63650; principal; 2022-12-12 13:10)
DX: M47.816 Spondylosis without myelopathy or radiculopathy, lumbar region (principal); G89.4 Chronic pain syndrome; G58.8 Other specified mononeuropathies; J45.909 Unspecified asthma, uncomplicated; I10 Essential (primary) hypertension; E66.01 Morbid (severe) obesity due to excess calories; Z68.42 Body mass index [BMI] 45.0-49.9, adult; Z79.899 Other long term (current) drug therapy; Z88.6 Allergy status to analgesic agent
CPT/HCPCS: 63650 ×2; 81025; C1713; C1897; J0690

== ENCOUNTER → 2022-12-19 08:43 | Outpatient (BNVA) | payer MEDICAID, SELFPAY | PROVIDERS: Visit Provider Anesthesiology | DX: M47.816 Spondylosis without myelopathy or radiculopathy, lumbar region (principal); G58.8 Other specified mononeuropathies; G89.4 Chronic pain syndrome; G47.33 Obstructive sleep apnea (adult) (pediatric); E66.01 Morbid (severe) obesity due to excess calories; Z68.41 Body mass index [BMI] 40.0-44.9, adult | CPT/HCPCS: 99212; J3301 ==

== ENCOUNTER 2022-12-27 05:59 | Day surgery (SDC) | payer MEDICAID, SELFPAY ==
[2022-12-27] VITALS (14 sets, daily range): BP systolic 115–143; BP diastolic 61–92; PULSE 54–71; RESP 14–24; TEMP 36.1; O2SAT 96–100; BMI 45.8
--- NOTE | ~2022-12-27 | FL_ITS ---
EXAMINATION: XR FLUOROSCOPY WITH IMAGES CLINICAL INFORMATION: Spinal cord stimulation implant. COMPARISON: None available. TECHNIQUE: Fluoroscopy Supervised By: Dr. Sukhi Soriano. Fluoroscopy Time: 1.8 minutes. Cumulative Dose: 80.1 mGy. DAP: 21.8 Gycm2. Images: 3. FINDINGS: Images demonstrate 2 leads projecting over the lower thoracic spinal canal FL/FL guidance in OR IMPRESSION: Fluoroscopy guidance for spinal cord stimulator implant
[2022-12-27 06:36] LABS: UPreg QC Valid YES; Urine Pregnancy NEGATIVE (NEGATIVE)
[2022-12-27] MEDS: Albuterol Sulfate (0.083%) 2.5 MG/3 ML VIAL.NEB INHALE (07:00)
[2022-12-27] MEDS: Lactated Ringers 1,000 ML 100 ML IVCONT (07:06)
--- NOTE | 2022-12-27 07:08 | MHC.SHP ---
Pre-Procedural Eval Section A Date of Service: 12/27/22 The patient is an INPATIENT: No Changes since office visit: Yes Patient answered all questions The History & Physical has been completed within 30 days and I have reviewed it.: No Section B Chief Complaint: Spondylosis without myelopathy or radiculopathy, l Details of Present Illness: as above Relevant Family History (Specify if Yes): No Relevant Social History: None Present Medications: None Medical History: No relevant PMH History of Previous Operations: No relevant previous surgery Allergies: Allergies Allergy/AdvReac Type Severity Reaction Status Date / Time aspirin AdvReac Mild mild Verified 12/19/22 09:43 vaginal bleeding Review of Systems Sugical H&P ROS: Negative: Cardiovascular, Respiratory, Neurological, Psychiatric, Hem-Onc, Allergic/Immunologic, Gastrointestinal, Genitourinary, Musculoskeletal, Integumentary, Endocrine and Eyes/Ears/Nose/Throat and Yes, Specify: Constitution (morbid obesity) Exam Surgical H&P Exam: Normal: HEENT, Normal: Heart, Normal: Lungs, Normal: Extremities, Normal: Skin and Normal: Neurological and Significant Findings: Abdomen (enlarged due to i/a &s/q fat) Plan Diagnosis/Plan: Unchanged I have reviewed the history and physical and performed a pertinent physical examination on my patient. No changes have occurred unless specified. Time Spent With Patient Time: Total time managing care of this patient today __5__ minutes.
--- NOTE | 2022-12-27 07:26 | P.OP_ITS ---
Operative Note Operative Note Date of Service: 12/27/22 Narrative: Tamanna is Very peasant 52 y.o. female who came to the OR today today for implantation of spinal cord stimulator for the treatment of chronic pain syndrome, spondylosis of lumbar spine, disc degeneration lumbar. Preop eratively patient received cefazolin 3 g approximately 30 minutes before the procedure. After obtaining informed consent the patient was brought to the operating room, she was supine on the stretcher [place] [employer] monitors were applied and general anesthesia was induced with endotracheal intubation. After that patient was transferred to the operating table prone all pressure points were protected. Time-out was performed delineating correct site, side, the nature of the procedure, patient's allergy, preoperative antibiotic if needed. All operating room staff was participating in OR time-out procedure. Patient's entire back was prepped with ChloraPrep twice and draped with full body fenestrated drape and ioban film. Sterilely draped C-arm was brought over operating field and square picture of T12-L1 and L2 vertebrae were demonstrated on the screen. The skin was infiltrated with the mixture of lidocaine 2% and ropivacaine 0.5% in the projection of T12 , L1 and L2 spinouse procesess. After that number 10 Blade scalpel was used to perform strict midline 7 cm long incision. the incision was widened and deepened until the prevertebral fascia was reached. Thorough hemostasis was obtained, After that attention was concentrated on the T12-L1 epidural interspace. The location of the projection of the right pedicle center of the L2 vertebra was found on the fascia using C-arm. 10 cm 14 gauge introducer epidural needle was inserted through the prevertebral fascia and advanced to T12-L1 epidural interspace. The advancement of the needle was performed on anterior posterior and lateral views. Guitar wire and loss of resistance technique were used to locate epidural space. When guitar wire was spread in the epidural fashion, epidural lead was inserted through the needle and it was advanced to the posterior epidural space.The lead was advanced strictly at the midline approximately to the top of T8 vertebra in the posterior epidural space. The position of the lead in the posterior epidural space was verified on the lateral view. After that location of the projection of the LEFT pedicle center of the L2 vertebra was found using C-arm. 10 cm 14 gauge introducer epidural needle was inserted through the fascia and advanced to T12-L1 epidural interspace. The advancement of the needle was performed on anterior posterior and lateral views. Guitar wire and loss of resistance technique were used to locate epidural space. When guitar wire was spread in the epidural fashion, epidural lead was inserted through the needle. Loss of resistance to air technique and guitar wire were used to locate epidural space. After that the epidural lead was advanced slightly left to the midline to the top of the T9 vertebra in the po sterior epidural space slightly left to the existing electrode. After satisfactory position of the leads were established the needles were withdrawn, the stylette wires were removed from the epidural leads. The anchoring devices were dislodged on the leads and advanced to the level of the prevertebral fascia. After that the anchoring devices were sutured to the prevertebral fascia using Tycron 0-0 sutures - 2 sutures per each anchoroing device . The fixation scews were locked until 3 clicks heard. The wound was irrigated with vancomycin containing saline and packed with the 4x4 soaked with the same saline solution. After that attention was concentrated on the left upper buttock of the patient were the decision was made to implant the battery. 3 cm below the top of the left iliac crest horizontal incision was made 6.5 cm long using 10 blade scalpel, hemostasis was performed using electric cautery.. Using sharp and dull dissection pocket for the battery was formed in caudad d irection from the incision. Thorough hemostasis was performed. After that the wound pocket was irrigated with vancomycin containing normal saline and tunneling device was used to connect midline incision and upper buttock incision Tunneling device was used to connect the two wounds. The epidural leads were dislodged from midline incision to the buttock incision through the tunneling device. After that they were connected to the Omnia battery and impedance was checked and found to be satisfactory with all leads connected. Anchoring screws were fixed on the back of the battery. Tycron of 0- 0 sutures were applied to the superior lateral and superior medial corners of the upper portion of the pocket wound and after that the anchoring sutures were connected to the anchoring orifices on the battery. Electrodes were gathered behind the body of the battery and battery was dislodged into the subcutaneous pocket wound. The sutures were tied and irrigation was repeated. After that 0-0 Polysorb sutures used to close the both wounds and the 0-2 polisorb sutures were used to apptoximate the level of the skin , Eusebia were applied to the skin. The sterile dressing comprised of several 4x4 for each wound was affixed to the skin using medipore tape.. The patient was transfered supine on the stretcher, awaken, and transferred stable to the PACU.
--- NOTE | 2022-12-27 09:25 | HO.ANESPROP2 ---
HPI - Anesthesia Eval Consult details Narrative: for raoul [facility] Active Problems Active Problems: All Active Problems (Updated 11/08/22 @ 00:01 by Background Dacyndie) SANDEE (obstructive sleep apnea) (Acute) Trigger finger, left ring finger (Acute) Cluneal neuropathy (Acute) Mononeuropathy, unspecified (Acute) Osteoarthritis, hand (Acute) HTN (hypertension), benign (Acute) Arthritis of knee (Acute) Depression (Acute) Anemia (Acute) GERD with esophagitis (Acute) Dysphagia, pharyngoesophageal phase (Acute) Abdominal bloating (Acute) Spondylosis of lumbar region without myelopathy or radiculopathy (Acute) Carotid stenosis, bilateral (Acute) Headache (Acute) Bilateral knee pain (Acute) Chronic pain syndrome (Acute) Osteoarthritis of knees, bilateral (Acute) Spondylosis of lumbar joint (Acute) Asthma (Acute) Environmental allergies (Acute) Osteoarthritis of knees, bilateral (Acute) Past Medical History Medical History Asthma Bleeding disorder COVID-19 Gout High cholesterol History of gastric ulcer Hypertension Lab test positive for detection of COVID-19 virus (~11/2019) Left inguinal hernia (~2013) Morbid obesity with BMI of 45.0-49.9, adult On anticoagulant therapy On beta christina at home SANDEE (obstructive sleep apnea) Osteoarthritis of knees, bilateral Seizure Family History Family History Father Hx of diabetes insipidus Mother No problems noted. Family history of problems with anesthesia: No Surgical History Surgical History H/O umbilical hernia repair (07/25/06) History of back surgery Hx of endoscopy S/P partial hysterectomy (11/10/18) History of Problems with Anesthesia: Unobtainable Social History Social History Household Members: Family and Children Housing: House Alcohol intake: never Patient Tobacco Use Status: Never used Tobacco e-Cigarette/Vaping Use: Never Used Second Hand Smoke Exposure: No Use of substances other than those prescribed or required for medical reasons: No Are you DNR?: No Advance Directives: No Advance Directives Information Provided: Yes Advance Directives Date on File: 01/24/21 service: No Current occupational status: unemployed Current occupation: right handed Meds Allergies Allergy/AdvReac Type Severity Reaction Status Date / Time aspirin AdvReac Mild mild Verified 12/19/22 09:43 vaginal bleeding Active Medications: Current Medications Albuterol Sulfate (Albuterol Sulfate (0.083%) 2.5 Mg/3 Ml Vial.Neb) 2.5 mg INHALE ONCE PRN PRN Reason: Shortness of Breath/Wheezing Last Admin: 12/27/22 07:00 Dose: 2.5 mg Lactated Ringer's (Lr) 1,000 mls @ 100 mls/hr IVCONT .Q10H ISMA Last Admin: 12/27/22 07:06 Dose: 100 mls/hr Home Medications Medication Instructions Recorded Confirmed Last Taken Type albuterol sulfate 90 mcg/actuation 2 puff inhalation Q6H PRN 04/27/20 12/27/22 08/01/22 History aerosol inhaler (ProAir HFA) Shortness Of Breath cetirizine 10 mg tablet 10 mg PO BEDTIME 04/27/20 12/27/22 10/04/22 History docusate sodium 100 mg capsule 100 mg PO BID 04/27/20 12/27/22 12/27/22 History (DOK) duloxetine 30 mg capsule,delayed 30 mg PO BEDTIME 04/27/20 12/27/22 10/04/22 History release metoprolol tartrate 50 mg tablet 50 mg PO BID 04/27/20 12/27/22 12/27/22 History montelukast 10 mg tablet 10 mg PO BEDTIME 04/27/20 12/27/22 10/04/22 History clonidine HCl 0.1 mg tablet 0.1 mg PO BID 06/05/20 12/27/22 12/27/22 History apixaban 5 mg tablet (Eliquis) 5 mg PO BID 06/28/20 12/27/22 12/24/22 History atorvastatin 40 mg tablet 40 mg PO BEDTIME 06/28/20 12/27/22 12/27/22 History losartan 100 mg tablet 100 mg PO DAILY 06/28/20 12/27/22 12/27/22 History furosemide 20 mg tablet 10 mg PO DAILY 12/25/21 12/27/22 12/27/22 History topiramate 100 mg tablet 100 mg PO BEDTIME 12/25/21 12/27/22 10/04/22 History cyanocobalamin (vitamin B-12) 500 500 mcg PO DAILY 01/08/22 12/27/22 12/27/22 History mcg tablet ergocalciferol (vitamin D2) 1,250 1,250 mcg PO FR@0900 01/08/22 12/27/22 12/27/22 History mcg (50,000 unit) capsule ferrous sulfate 325 mg (65 mg 325 mg PO DAILY 01/08/22 12/27/22 10/05/22 09:00 History iron) tablet (FeroSul) omeprazole 20 mg capsule,delayed 40 mg PO BID 01/08/22 12/27/22 12/27/22 History release amlodipine 5 mg tablet 5 mg PO DAILY 09/24/22 12/27/22 12/27/22 History multivitamin-iron sulfate 15 1 tab PO BEDTIME 10/05/22 12/27/22 10/04/22 History mg-folic acid 400 mcg tablet (Tab-A-Bing Multivitamin w-iron) ascorbic acid (vitamin C) 500 mg 500 mg PO DAILY 10/06/22 12/27/22 10/05/22 09:00 History capsule,extended release Exam Exam Date and Time: December 27, 2022924 Height,Weight and Vital Signs: Height 5 ft 9 in Weight 140.614 kg Last Vital Signs Temp 97.0 F 12/27/22 06:31 Pulse 54 12/27/22 07:01 Resp 18 12/27/22 07:01 BP 115/65 12/27/22 06:31 Pulse Ox 97 12/27/22 06:31 O2 Del Method Room Air 12/27/22 06:31 Pertinent Lab Results Pertinent Lab Results: Laboratory Tests 12/27/22 06:20 Urine Test NEGATIVE Airway Mallampati Class: III TM Dist: <=3cm Neck ROM: Limited Heart: rrr Lungs: cta Assessment and Plan Assessment Anesthesia Assessment: Anesthesia Plan Discussed and Chart Reviewed Final Anesthetic Review Family History of Problems with Anesthesia: No History of Problems with Anesthesia: Unobtainable NPO: Yes ASA Class: III Final Preanesthetic Review: No Changes in Pt Med Stat, Meds/Allgs Chart Reviewed, Consent Obtained/Reviewed and Anes Risks/Benef Reviewed Patient Risk: Intermediate Procedure Risk: Intermediate Anesthetic Plan Anesthetic Plan: GA (risk of positional injuries under GA discussed and risks accepted by patient) Disposition: Standard PACU
--- NOTE | 2022-12-27 10:43 | PM.OP ---
Brief Operative Note Date of Service: 12/27/22 Pre-op diagnosis: spondylosis lumbar spine Post-op diagnosis: same Procedure: Implantation of Nevro SCS Implants: Omnia Nevro battery and 2 epidural leads. Surgeon: Sukhi Soriano MD Anesthesia: MAC Was an Stockbroking Dealer used for this Procedure?: No Estimated blood loss (mL): 16 Pathology: none sent Condition: stable Disposition: PACU
[2022-12-27] MEDS: oxyCODONE HCl Immed Release 5 MG TABLET 10 MG PO (11:13)
[2022-12-27] MEDS: fentaNYL citrate/PF 100 MCG/2 ML VIAL 25 MCG IVPUSH ×4 (11:23→11:48)
== END 2022-12-27 13:39 | disposition home or self-care (01) ==
PROVIDERS: PCP Student in an Organized Health Care Education/Training Program; Visit Provider Anesthesiology
PROC: (CPT 63685; principal; 2022-12-27 07:30)
DX: M47.816 Spondylosis without myelopathy or radiculopathy, lumbar region (principal); G89.4 Chronic pain syndrome; M51.36 Other intervertebral disc degeneration, lumbar region; G58.8 Other specified mononeuropathies; J45.909 Unspecified asthma, uncomplicated; G47.33 Obstructive sleep apnea (adult) (pediatric); D68.9 Coagulation defect, unspecified; Z88.8 Allergy status to other drugs, medicaments and biological substances; E78.00 Pure hypercholesterolemia, unspecified; I10 Essential (primary) hypertension; E66.01 Morbid (severe) obesity due to excess calories; Z68.41 Body mass index [BMI] 40.0-44.9, adult; Z79.01 Long term (current) use of anticoagulants; Z79.899 Other long term (current) drug therapy; Z86.16 Personal history of COVID-19; Z98.890 Other specified postprocedural states
CPT/HCPCS: 63685; 63650 ×2; 81025; 94640; C1713; C1778; C1787; C1816; J0131; J0330; J0690; J2250; J2370; J2371; J2405; J2795; J3010; J3370

== ENCOUNTER → 2022-12-27 05:59 | Outpatient (BNV) | payer MEDICAID, SELFPAY | PROVIDERS: PCP Student in an Organized Health Care Education/Training Program; Visit Provider Anesthesiology | DX: G89.4 Chronic pain syndrome (principal); G58.8 Other specified mononeuropathies | CPT/HCPCS: 63650; 63685 ==

== ENCOUNTER 2023-01-02 07:45 | Outpatient (AMB) | payer MEDICAID, SELFPAY ==
--- NOTE | 2023-01-02 08:04 | A.OFFVIS_ITS ---
Intake Vital Signs 01/02/23 08:30 Height 5 ft 9 in Weight 310 lb BMI 45.8 BP 122/66 Blood Pressure Location Rt brachial Respiration 16 Pulse 61 Pulse Source Pulse Oximeter Pulse Oximetry (%) 98 Oxygen Delivery Method Room Air Intake Visit Reasons: s/p Nevro SCS Implant 12/27/22 Intake Note: patient comes in for post op. Allergies aspirin Adverse Reaction (Mild, Verified 01/02/23 08:29) mild vaginal bleeding HPI HPI Comments History of Present Illness Details Tamanna is in my office again after the implantation ofthe Nevro SCS . Abdominal binder is taken off. The dressing was removed today. The wounds are very dry and clean. Eusebia are competent. No redness no swelling no pathological discharge no tenderness on palpation detected around the wounds. The wounds are worst with ChloraPrep and draped and dressed with sterile 4x4s covered with Tegaderm films. Next week we will remove eusebia. Limitations of physical activities including continue to were abdominal binder no twisting turning torso flexing no heavy lifting more than 5 lb by both hands for the next 7 weeks were explained to the patient again. Patient expressed understanding. Prior: Results of the Nevro SCS trial- She reported before the procedure pain 10/10. After the insertion of the epidural leads she reports the pain in the range of 3-4/10 - therefore this is 60- 70 % pain improvement. The patient also reports better mobility and better function while with the trial of the stimulator. She requests me to schedule the implant DOUG. She also requests today to perform bilateral trapesius muscle trigger point injection in her neck as she requested this procedure to be repeated today. I will do as she requested see as below. I think that she starts to feel more pain in the neck on the background of alleviation of the lower back pain. The dressing was removed and the sutures were severed. The leads were removed, the tips were intact. The sites are without pathological discharge , no redness , no swelling and no local temperature on palpation, no tenderness on palpation. Bacitracin ointmant dressing was applied. Left Diagnostic superior cluneal nerve block on 10/29/22, reported 75% pain relief for 12 hours status post procedure and ongoing 40% pain with increased improvement in her function, sleep or social interactions. However due to patient's uncertainty about her pain relieve we decided to repeat the procedure however the results were not as encouraging as they were 1st time. Past Procedures: 10/29/22: Left Diagnostic superior cluneal nerve block-75% pain relief for 12 hours, 40% ongoing pain relief 09/10/22: Bilateral Diagnostic L2-L3-L4 DR L5 MBB -50% for 24 hours PRIOR 09/10/22 patient denied the presence of pain in the right side and insisted that the all lower back pain is in the left, mostly in the projection of the left iliac crest as well as in the paraspinal region on the left. We decided to change the nature of the procedure to the left L2- L3- L4- L5 diagnostic MBB. Cluneal nerve pathology should be considered if the injection as above will not bring her significant pain relieve. This patient is under long observation with us originally she came to my office with complains on very strong bilateral knee pain she was treated with bilateral PNS by stim wave infrapatellar saphenous position. [facility] Medical History Asthma Bleeding disorder COVID-19 Gout High cholesterol History of gastric ulcer Hypertension Lab test positive for detection of COVID-19 virus (~11/2019) Left inguinal hernia (~2013) Morbid obesity with BMI of 45.0-49.9, adult On anticoagulant therapy On beta christina at home SANDEE (obstructive sleep apnea) Osteoarthritis of knees, bilateral Seizure Surgical History H/O umbilical hernia repair (07/25/06) History of back surgery Hx of endoscopy S/P partial hysterectomy (11/10/18) Family History Father Hx of diabetes insipidus Mother No problems noted. Social History Household Members: Family and Children Housing: House Alcohol intake: never Patient Tobacco Use Status: Never used Tobacco e-Cigarette/Vaping Use: Never Used Second Hand Smoke Exposure: No Advance Directives Date on File: 01/24/21 service: No Current occupational status: unemployed Current occupation: right handed Review of Systems Const All systems reviewed & are unremarkable except as noted in HPI and below Neuro Denies Abnormal speech present and Denies Sensory deficit (Neuro) Physical Exam Vital Signs: Last Vital Signs Pulse 61 01/02/23 08:30 Resp 16 01/02/23 08:30 BP 122/66 01/02/23 08:30 Pulse Ox 98 01/02/23 08:30 Oxygen Delivery Method Room Air 01/02/23 08:30 BMI result Body Mass Index 45.8 Const Nutritional Appearance: obese HEENT Head: Yes atraumatic Mouth: no other ( thrush) Throat: No postnasal drainage Eyes General: appearance normal, both eyes and all related structures Sclerae: sclerae normal EOM: EOMs intact bilaterally Neck Neck: Yes supple Lymphatic: no lymphadenopathy noted Resp Effort & Inspection: normal respiratory effort Cardio Jugular venous distension: no JVD Neuro Speech: No Abnormal speech present Sensory Exam: No Sensory deficit (Neuro) Extrem General: No clubbing, No cyanosis and No edema Assessment & Plan Assessment & Plan (1) Spondylosis of lumbar region without myelopathy or radiculopathy: Code(s): M47.816 - Spondylosis without myelopathy or radiculopathy, lumbar region (2) Morbid obesity with BMI of 45.0-49.9, adult: Code(s): E66.01 - Morbid (severe) obesity due to excess calories; Z68.42 - Body mass index [BMI] 45.0-49.9, adult (3) Chronic pain syndrome: Code(s): G89.4 - Chronic pain syndrome Plan: The patient was positioned sitting on the examination table. the trigger points were located by palpation and marked on the skin. bilateral upper portions of the trapesius muscles were prepped with chloroprep . 5 mls of ropivacaine 0.5% mixed with kenalog 20 mg was injected into both trigger points in fanlike fashion. needle was removed bandaids were applied. The patient tolerated procedure well. (4) Cluneal neuropathy: Code(s): G58.8 - Other specified mononeuropathies Plan Serious of diagnostic superior cluneal nerve blocks performed on this patient resulted in no improvement of the pain significant enough to justify the procedure for the patient as well as for me. She went for trial of Nevro SCS. Good results of the trial. She went for the implant 1 week ago. She is doing very good. The wounds are healing appropriately. She restarted her Eliquis. Anticoagulation: Patient is on anticoagulant (Eliquis) and instructions given on when to pause with prescribing physician permission. Justification for interventional therapy: ? Patient with average pain > 6/10 ? Patient has exhausted conservative therapy Coding Level of Care Code Est Pt Level 3 (33132) Diagnoses Spondylosis of lumbar region without myelopathy or radiculopathy M47.816 Morbid obesity with BMI of 45.0-49.9, adult E66.01; Z68.42 Chronic pain syndrome G89.4 Cluneal neuropathy G58.8
[2023-01-02 08:30] VITALS: BP 122/66; PULSE 61; RESP 16; O2SAT 98; BMI 45.8
== END 2023-01-02 08:29 | disposition home or self-care (01) ==
PROVIDERS: PCP Student in an Organized Health Care Education/Training Program; Visit Provider Anesthesiology
DX: M47.816 Spondylosis without myelopathy or radiculopathy, lumbar region (principal); G89.4 Chronic pain syndrome; E66.01 Morbid (severe) obesity due to excess calories; Z68.42 Body mass index [BMI] 45.0-49.9, adult; G58.8 Other specified mononeuropathies
CPT/HCPCS: 99024; 99213

== ENCOUNTER → 2023-01-02 07:45 | Outpatient (BNVA) | payer MEDICAID, SELFPAY | PROVIDERS: PCP Student in an Organized Health Care Education/Training Program; Visit Provider Anesthesiology | DX: G89.4 Chronic pain syndrome (principal); M47.816 Spondylosis without myelopathy or radiculopathy, lumbar region; G58.8 Other specified mononeuropathies; E66.01 Morbid (severe) obesity due to excess calories; Z68.42 Body mass index [BMI] 45.0-49.9, adult | CPT/HCPCS: 20552; 99212; J2795 ==

== ENCOUNTER → 2023-01-06 09:32 | Outpatient (REF) | payer MEDICAID, SELFPAY | LOC: HO.SL 09:32 | PROVIDERS: PCP Student in an Organized Health Care Education/Training Program; Visit Provider Internal Medicine Pulmonary Disease | DX: G47.33 Obstructive sleep apnea (adult) (pediatric) (principal) | CPT/HCPCS: 95806 ==

== ENCOUNTER → 2023-01-06 09:44 | Outpatient (BNV) | payer MEDICAID, SELFPAY | PROVIDERS: PCP Student in an Organized Health Care Education/Training Program; Visit Provider Internal Medicine | DX: G47.33 Obstructive sleep apnea (adult) (pediatric) (principal) | CPT/HCPCS: 95806 ==

== ENCOUNTER 2023-01-09 13:36 | Outpatient (AMB) | payer MEDICAID, SELFPAY ==
--- NOTE | 2023-01-09 13:53 | MHC.OFFVIS ---
Intake Vital Signs 01/09/23 13:57 Height 5 ft 9 in Weight 310 lb BMI 45.8 BP 130/81 Blood Pressure Location Lt brachial Position Sitting Pulse 65 Pulse Source Pulse Oximeter Pulse Oximetry (%) 96 Oxygen Delivery Method Room Air Intake Visit Reasons: s/p Nevro SCS Implant 12/27/22 Allergies aspirin Adverse Reaction (Mild, Verified 01/09/23 13:58) mild vaginal bleeding HPI HPI Comments History of Present Illness Details Patient is a pleasant 52 years old female who presents today for post op week #2 follow up s/p Lumbar Nevro SCS implant on 12/27/[address] Soriano. Her stimulator is at minimal power with 90% pain relief. She reports good pain relief, increased mobility, better sleep and better functioning and improved social interactions. Patient is wearing an abdominal binder in the form of a tight bodysuit which she prefers over actual abdominal binder. Fariha miles from [facility] is present during this encounter and has adjusted SCS programming with patient today. The tape was removed today. Her wounds are clean, without pathological discharge, redness, swelling, tenderness on palpation and signs of inflammation or infection. Wanette were removed today. The wounds are washed with ChloraPrep and sterile dressing with bacitracin ointment was applied with Tegaderm films. Several Steri-strips were applied to the battery pocket incisional line and 2 Steri-strips to back incision after staple removal. Patient is instructed to wear abdominal binder 06/01 for the next 6 weeks. PRIOR: Tamanna is in my office again after the implantation ofthe Nevro SCS . Abdominal binder is taken off. The dressing was removed today. The wounds are very dry and clean. Wanette are competent. No redness no swelling no pathological discharge no tenderness on palpation detected around the wounds. The wounds are worst with ChloraPrep and draped and dressed with sterile 4x4s covered with Tegaderm films. Next week we will remove jarad. Limitations of physical activities including continue to were abdominal binder no twisting turning torso flexing no heavy lifting more than 5 lb by both hands for the next 7 weeks were explained to the patient again. Patient expressed understanding. Prior: Results of the Nevro SCS trial- She reported before the procedure pain 10/10. After the insertion of the epidural leads she reports the pain in the range of 3-4/10 - therefore this is 60- 70 % pain improvement. The patient also reports better mobility and better function while with the trial of the stimulator. She requests me to schedule the implant DOUG. She also requests today to perform bilateral trapesius muscle trigger point injection in her neck as she requested this procedure to be repeated today. I will do as she requested see as below. I think that she starts to feel more pain in the neck on the background of alleviation of the lower back pain. The dressing was removed and the sutures were severed. The leads were removed, the tips were intact. The sites are without pathological discharge , no redness , no swelling and no local temperature on palpation, no tenderness on palpation. Bacitracin ointmant dressing was applied. Left Diagnostic superior cluneal nerve block on 10/29/22, reported 75% pain relief for 12 hours status post procedure and ongoing 40% pain with increased improvement in her function, sleep or social interactions. However due to patient's uncertainty about her pain relieve we decided to repeat the procedure however the results were not as encouraging as they were 1st time. Past Procedures: 10/29/22: Left Diagnostic superior cluneal nerve block-75% pain relief for 12 hours, 40% ongoing pain relief 09/10/22: Bilateral Diagnostic L2-L3-L4 DR L5 MBB -50% for 24 hours PRIOR 09/10/22 patient denied the presence of pain in the right side and insisted that the all lower back pain is in the left, mostly in the projection of the left iliac crest as well as in the paraspinal region on the left. We decided to change the nature of the procedure to the left L2- L3- L4- L5 diagnostic MBB. Cluneal nerve pathology should be considered if the injection as above will not bring her significant pain relieve. This patient is under long observation with us originally she came to my office with complains on very strong bilateral knee pain she was treated with bilateral PNS by stim wave infrapatellar saphenous position. [facility] Medical History Asthma Bleeding disorder COVID-19 Gout High cholesterol History of gastric ulcer Hypertension Lab test positive for detection of COVID-19 virus (~11/2019) Left inguinal hernia (~2013) Morbid obesity with BMI of 45.0-49.9, adult On anticoagulant therapy On beta christina at home SANDEE (obstructive sleep apnea) Osteoarthritis of knees, bilateral Seizure Surgical History H/O umbilical hernia repair (07/25/06) History of back surgery Hx of endoscopy S/P partial hysterectomy (11/10/18) Family History Father Hx of diabetes insipidus Mother No problems noted. Social History Household Members: Family and Children Housing: House Alcohol intake: never Patient Tobacco Use Status: Never used Tobacco e-Cigarette/Vaping Use: Never Used Second Hand Smoke Exposure: No Advance Directives Date on File: 01/24/21 service: No Current occupational status: unemployed Current occupation: right handed Review of Systems Const All systems reviewed & are unremarkable except as noted in HPI and below Physical Exam Vital Signs: Last Vital Signs Pulse 65 01/09/23 13:57 BP 130/81 01/09/23 13:57 Pulse Ox 96 01/09/23 13:57 Oxygen Delivery Method Room Air 01/09/23 13:57 BMI result Body Mass Index 45.8 General: Appears afebrile. Alert and oriented. Mood and affect appropriate. Follows and participates in conversation appropriately. Respiratory effort is unlabored. No cough. Able to transition from sit to stand unassisted. Ambulates with bilaterally normal heel strike and toe off. Back/Spine/Pelvis Other: The two wounds are completely benign and intact without pathological discharge, redness, swelling, tenderness on palpation and signs of inflammation or infection. Wanette were removed today. Dressing change was done today. Assessment & Plan Assessment & Plan (1) Status post insertion of spinal cord stimulator: Code(s): Z96.89 - Presence of other specified functional implants (2) Chronic pain syndrome: Code(s): G89.4 - Chronic pain syndrome (3) Spondylosis of lumbar region without myelopathy or radiculopathy: Code(s): M47.816 - Spondylosis without myelopathy or radiculopathy, lumbar region Plan Patient presents today for post op week #2 s/p implantation of Nevro SCS. She has execellent pain relief at current settings. Wanette were removed today and Steri-strips were applied. Her wound incisions are benign, intact, without any pathological discharge or signs of infection. [employer] phlebotomy services representative has evaluated her SCS program and laundry laborer. Patient is aware to contact Fariha for any instructions on how to use the laundry laborer, use her device to the full potential power, and address any questions or concerns. Patient instructed to continue to wear an abdominal binder instead of a bodysuit / for the next 6 weeks. Follow up next week for wound check and sooner as needed. Coding Level of Care Code Est Pt Level 4 (43640) Diagnoses Status post insertion of spinal cord stimulator Z96.89 Chronic pain syndrome G89.4 Spondylosis of lumbar region without myelopathy or radiculopathy M47.816
[2023-01-09 13:57] VITALS: BP 130/81; PULSE 65; O2SAT 96; BMI 45.8
== END 2023-01-09 14:23 | disposition home or self-care (01) ==
PROVIDERS: PCP Student in an Organized Health Care Education/Training Program; Visit Provider Nurse Practitioner Family
DX: Z96.89 Presence of other specified functional implants (principal); G89.4 Chronic pain syndrome; M47.816 Spondylosis without myelopathy or radiculopathy, lumbar region
CPT/HCPCS: 99214

== ENCOUNTER → 2023-01-09 13:36 | Outpatient (BNVA) | payer MEDICAID, SELFPAY | PROVIDERS: PCP Student in an Organized Health Care Education/Training Program; Visit Provider Nurse Practitioner Family | DX: M47.816 Spondylosis without myelopathy or radiculopathy, lumbar region (principal); G89.4 Chronic pain syndrome; Z96.89 Presence of other specified functional implants | CPT/HCPCS: 99214 ==

== ENCOUNTER 2023-01-17 12:36 | Outpatient (REF) | payer MEDICAID, SELFPAY ==
--- NOTE | ~2023-01-17 | XR_ITS ---
EXAMINATION: XR SHOULDER, LEFT CLINICAL INFORMATION: Left shoulder pain. COMPARISON: None available. TECHNIQUE: AP external rotation, Grashey, scapular Y, and axillary views of the left shoulder. FINDINGS: The bones and soft tissues appear unremarkable. No fracture appreciated. Glenohumeral and acromioclavicular alignment is anatomic with normal joint space. No abnormal soft tissue calcifications. XR/XR shoulder LT min 2V IMPRESSION: Normal plain film examination of the left shoulder.
== END 2023-01-17 12:37 | disposition home or self-care (01) ==
LOC: HO.XRAY 12:36
PROVIDERS: PCP Student in an Organized Health Care Education/Training Program; Visit Provider Nurse Practitioner Family
DX: M25.512 Pain in left shoulder (principal); M47.816 Spondylosis without myelopathy or radiculopathy, lumbar region; G89.4 Chronic pain syndrome; Z48.811 Encounter for surgical aftercare following surgery on the nervous system; Z96.82 Presence of neurostimulator
CPT/HCPCS: 73030; 99214

== ENCOUNTER 2023-01-17 12:36 | Outpatient (AMB) | payer MEDICAID, SELFPAY ==
--- NOTE | 2023-01-17 12:54 | A.OFFVIS_ITS ---
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 Soriano. Reports 80% pain relief at her current settings that was adjusted last week. She reports good pain relief, increased mobility, better sleep and better functioning and improved social interactions. Patient is wearing an abdominal binder. The tape was removed today. Her wounds are clean, without pathological discharge, redness, swelling, tenderness on palpation and signs of inflammation or infection. The wounds were washed with ChloraPrep and sterile dressing with bacitracin ointment was applied with Tegaderm films. Steri-strips are intact at battery pocket incisional line. Patient is instructed to wear abdominal binder 06/01 for the next 5 weeks. PRIOR: Tamanna is in my office again after the implantation ofthe Nevro SCS . Abdominal binder is taken off. The dressing was removed today. The wounds are very dry and clean. Euesbia are competent. No redness no swelling no patho logical discharge no tenderness on palpation detected around the wounds. The wounds are worst with ChloraPrep and draped and dressed with sterile 4x4s covered with Tegaderm films. Next week we will remove eusebia. Limitations of physical activities including continue to were abdominal binder no twisting turning torso flexing no heavy lifting more than 5 lb by both hands for the next 7 weeks were explained to the patient again. Patient expressed understanding. Prior: Results of the Nevro SCS trial- She reported before the procedure pain 10/10. After the insertion of the epidural leads she reports the pain in the range of 3-4/10 - therefore this is 60- 70 % pain improvement. The patient also reports better mobility and better function while with the trial of the stimulator. She requests me to schedule the implant DOUG. She also requests today to perform bilateral trapesius muscle trigger point injection in her neck as she requested this procedure to be repeated today. I will do as she requested see as below. I think that she starts to feel more pain in the neck on the background of alleviation of the lower back pain. The dressing was removed and the sutures were severed. The leads were removed, the tips were intact. The sites are without pathological discharge , no redness , no swelling and no local temperature on palpation, no tenderness on palpation. Bacitracin ointmant dressing was applied. Left Diagnostic superior cluneal nerve block on 10/29/22, reported 75% pain relief for 12 hours status post procedure and ongoing 40% pain with increased improvement in her function, sleep or social interactions. However due to patient's uncertainty about her pain relieve we decided to repeat the procedure however the results were not as encouraging as they were 1st time. Past Procedures: 10/29/22: Left Diagnostic superior cluneal nerve block-75% pain relief for 12 hours, 40% ongoing pain relief 09/10/22: Bilateral Diagnostic L2-L3-L4 DR L5 MBB -50% for 24 hours PRIOR 09/10/22 patient denied the presence of pain in the right side and insisted that the all lower back pain is in the left, mostly in the projection of the left iliac crest as well as in the paraspinal region on the left. We decided to change the nature of the procedure to the left L2- L3- L4- L5 diagnostic MBB. Cluneal nerve pathology should be considered if the injection as above will not bring her significant pain relieve. This patient is under long observation with us originally she came to my office with complains on very strong bilateral knee pain she was treated with bilateral PNS by stim wave infrapatellar saphenous position. [facility] Medical History Asthma Bleeding disorder COVID-19 Gout High cholesterol History of gastric ulcer Hypertension Lab test positive for detection of COVID-19 virus (~11/2019) Left inguinal hernia (~2013) Morbid obesity with BMI of 45.0-49.9, adult On anticoagulant therapy On beta christina at home SANDEE (obstructive sleep apnea) Osteoarthritis of knees, bilateral Seizure Surgical History H/O umbilical hernia repair (07/25/06) History of back surgery Hx of endoscopy S/P partial hysterectomy (11/10/18) Family History Father Hx of diabetes insipidus Mother No problems noted. Social History Household Members: Family and Children Housing: House Alcohol intake: never Patient Tobacco Use Status: Never used Tobacco e-Cigarette/Vaping Use: Never Used Second Hand Smoke Exposure: No Advance Directives Date on File: 01/24/21 service: No Current occupational status: unemployed Current occupation: right handed Review of Systems Const All systems reviewed & are unremarkable except as noted in HPI and below Physical Exam Vital Signs: Last Vital Signs Pulse 63 01/17/23 13:05 BP 135/80 01/17/23 13:05 Pulse Ox 97 01/17/23 13:05 Oxygen Delivery Method Room Air 01/17/23 13:05 BMI result Body Mass Index 45.9 General: Appears afebrile. Alert and oriented. Mood and affect appropriate. Follows and participates in conversation appropriately. Respiratory effort is unlabored. No cough. Able to transition from sit to stand unassisted. Ambulates with bilaterally normal heel strike and toe off. Back/Spine/Pelvis Other: The two wounds are completely benign and intact without pathological discharge, redness, swelling, tenderness on palpation and signs of inflammation or infection. Dressing change was done today. Assessment & Plan Assessment & Plan (1) Left shoulder pain: Code(s): M25.512 - Pain in left shoulder (2) Chronic pain syndrome: Code(s): G89.4 - Chronic pain syndrome (3) Spondylosis of lumbar region without myelopathy or radiculopathy: Code(s): M47.816 - Spondylosis without myelopathy or radiculopathy, lumbar region (4) Status post insertion of spinal cord stimulator: Code(s): Z96.89 - Presence of other specified functional implants (5) Spondylosis of lumbar joint: Code(s): M47.816 - Spondylosis without myelopathy or radiculopathy, lumbar region Plan Patient presents today for post op week #3 s/p implantation of Nevro SCS. She has 70-75% pain relief at current settings. Her wound incisions are benign, intact, without any pathological discharge or signs of infection. Patient instructed to continue to wear an abdominal binder / for the next 5 weeks. Left shoulder xray to assess degree of arthritis. Patient is intersted in therapeutic injection to alleviate her left shoulder pain. All questions and concerns have been answered and patient agreed with the plan. Follow up for xray results and sooner if needed. Orders: Orders XR shoulder LT min 2V Today M25.512 - Pain in left shoulder Coding Level of Care Code Est Pt Level 4 (50109) Diagnoses Left shoulder pain M25.512 Chronic pain syndrome G89.4 Spondylosis of lumbar region without myelopathy or radiculopathy M47.816 Status post insertion of spinal cord stimulator Z96.89 Spondylosis of lumbar joint M47.816
[2023-01-17 13:05] VITALS: BP 135/80; PULSE 63; O2SAT 97; BMI 45.9
== END 2023-01-17 13:23 | disposition home or self-care (01) ==
PROVIDERS: PCP Student in an Organized Health Care Education/Training Program; Visit Provider Nurse Practitioner Family
DX: M25.512 Pain in left shoulder (principal); G89.4 Chronic pain syndrome; M47.816 Spondylosis without myelopathy or radiculopathy, lumbar region; Z96.89 Presence of other specified functional implants
CPT/HCPCS: 99214

== ENCOUNTER 2023-01-22 09:34 | Outpatient (AMB) | payer MEDICAID, SELFPAY ==
[2023-01-22 10:28] VITALS: BP 126/80; PULSE 67; O2SAT 95; BMI 43.9
--- NOTE | 2023-01-22 10:28 | MHC.OFFVIS ---
Intake Vital Signs 01/22/23 10:28 Height 5 ft 9 in Weight 297 lb 9.985 oz BMI 43.9 BP 126/80 Pulse 67 Pulse Oximetry (%) 95 Intake Visit Reasons: asthma Intake Note: pt had sleep study last month december MD ordered cpap on 01/21/23. Denies coughing and wheezing. she stated she has yet to start advair inhaler and navarrete snot have any albuterol solution for her neb machine Allergies aspirin Adverse Reaction (Mild, Verified 01/22/23 10:33) mild vaginal bleeding HPI asthma HPI Details 52-year-old lady follow-up underlying severe obstructive sleep apnea, asthma, and environmental allergies. Patient states that she has been using duo nebs, Advair, and albuterol MDI with good control of her symptoms. She recently has had spinal stimulator implanted and her back pain is improving. She denies any recent exacerbations. Patient has completed her sleep study that showed underlying severe obstructive sleep apnea, however she has not received her CPAP machine yet. [facility] Medical History Asthma Bleeding disorder COVID-19 Gout High cholesterol History of gastric ulcer Hypertension Lab test positive for detection of COVID-19 virus (~11/2019) Left inguinal hernia (~2013) Morbid obesity with BMI of 45.0-49.9, adult On anticoagulant therapy On beta christina at home SANDEE (obstructive sleep apnea) Osteoarthritis of knees, bilateral Seizure Surgical History H/O umbilical hernia repair (07/25/06) History of back surgery Hx of endoscopy S/P partial hysterectomy (11/10/18) Family History Father Hx of diabetes insipidus Mother No problems noted. Social History Household Members: Family and Children Housing: House Alcohol intake: never Patient Tobacco Use Status: Never used Tobacco e-Cigarette/Vaping Use: Never Used Second Hand Smoke Exposure: No Advance Directives Date on File: 01/24/21 service: No Current occupational status: unemployed Current occupation: right handed Review of Systems Const Denies daytime sleepiness, Denies excessive sweating, Denies fatigue, Denies fever(s), Reports lethargy, Denies malaise, Denies night sweats, Reports snoring and Denies weight loss Eyes Denies blurry vision and Denies itchy eyes ENT Denies nasal congestion, Denies post nasal drip, Denies sinus pain, Denies sinus pressure and Denies other ( Thrush) Card Denies chest pain, Denies pedal edema, Denies dyspnea, Denies orthopnea and Denies paroxysmal nocturnal dyspnea Resp Denies cough, Denies hemoptysis, Denies excessive phlegm production, Denies dyspnea, Reports snoring and Denies wheezing GI Denies abdominal pain and Denies heartburn Musc Denies myalgias, Denies arthralgias and Denies joint swelling Skin/Breast Denies rash Neuro Denies memory loss and Denies seizure-like activity Psych Denies abnormal sleep pattern, Denies anxiety and Denies memory loss Endo Denies excessive sweating, Denies fatigue and Denies heat intolerance Mandeep/Lymph Denies easy bruising Aller/Immun Denies itchy eyes, Denies seasonal rhinorrhea and Denies wheezing Physical Exam Vital Signs: Last Vital Signs Pulse 67 01/22/23 10:28 BP 126/80 01/22/23 10:28 Pulse Ox 95 01/22/23 10:28 BMI result Body Mass Index 43.9 Const General: no acute distress and alert Nutritional Appearance: obese Orientation/consciousness: Other orientation findings ( oriented) HEENT Head: Yes atraumatic Eyes General: appearance normal, both eyes and all related structures Sclerae: sclerae normal EOM: EOMs intact bilaterally Neck Neck: Yes supple Lymphatic: no lymphadenopathy noted Resp Effort & Inspection: normal respiratory effort and no use of accessory muscles Auscultation: clear to auscultation bilaterally Cardio Rate: regular rate Rhythm: regular rhythm Heart sounds: no gallops, no murmurs and no rubs Skin General skin exam: other ( warm) Extrem General: No clubbing, No cyanosis and No edema Assessment & Plan Assessment & Plan (1) Asthma: Code(s): J45.909 - Unspecified asthma, uncomplicated Plan: Well controlled on Advair, duo nebs, and albuterol MDI. Continue current regimen. (2) SANDEE (obstructive sleep apnea): Code(s): G47.33 - Obstructive sleep apnea (adult) (pediatric) Plan: Underlying severe obstructive sleep apnea. Patient is waiting to receive her CPAP machine. (3) Environmental allergies: Code(s): Z91.09 - Other allergy status, other than to drugs and biological substances Plan: Now reasonably well controlled on Singulair and Zyrtec. Continue current regimen. Coding Level of Care Code Est Pt Level 4 (35043) Diagnoses Asthma J45.909 SANDEE (obstructive sleep apnea) G47.33 Environmental allergies Z91.09
== END 2023-01-22 10:32 | disposition home or self-care (01) ==
PROVIDERS: PCP Student in an Organized Health Care Education/Training Program; Visit Provider Internal Medicine Pulmonary Disease
DX: J45.909 Unspecified asthma, uncomplicated (principal); G47.33 Obstructive sleep apnea (adult) (pediatric); Z91.09 Other allergy status, other than to drugs and biological substances
CPT/HCPCS: 99214

== ENCOUNTER → 2023-01-22 09:34 | Outpatient (BNVA) | payer MEDICAID, SELFPAY | PROVIDERS: PCP Student in an Organized Health Care Education/Training Program; Visit Provider Internal Medicine Pulmonary Disease | DX: J45.909 Unspecified asthma, uncomplicated (principal); G47.33 Obstructive sleep apnea (adult) (pediatric); Z91.09 Other allergy status, other than to drugs and biological substances | CPT/HCPCS: 99212 ==

== ENCOUNTER 2023-03-07 15:44 | Outpatient (REF) | payer MEDICAID, SELFPAY ==
[2023-03-07 19:46] LABS: Influenza A PCR NEGATIVE (Negative); Influenza B PCR NEGATIVE (Negative); Resp Syncy Virus RNA Qual PCR NEGATIVE (Negative); SARS COV2 PCR INHOUSE NEGATIVE (Negative)
== END 2023-03-07 15:45 | disposition home or self-care (01) ==
LOC: HO.CHCLNP 15:44
PROVIDERS: Visit Provider Family Medicine
DX: J45.41 Moderate persistent asthma with (acute) exacerbation (principal); Z20.822 Contact with and (suspected) exposure to COVID-19
CPT/HCPCS: 0241U

== ENCOUNTER 2023-03-13 11:09 | Outpatient (AMB) | payer MEDICAID, SELFPAY ==
--- NOTE | 2023-03-13 11:11 | MHC.OFFVIS ---
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 Patient reports increased pain with movements and use of LUE, with left shoulder pain radiating to her neck and into her left elbow and fingers is intermittent numbness and tingling. Recent left shoulder x-ray was normal. Previous cervical spine x-rays showed degenerative disc changes C4-C5, C5-C6 and C6-C7 disc levels with ventral spondylosis. Patient deferred cervical spine injections at this time. She has been managing her symptoms with Tylenol, heat therapy and sauna. She is interested to undergo course of formal physical therapy for neck and left shoulder pain. Patient reports lumbar spinal cord stimulator device has been working well for her back pain. Denies any recent cough, cold, infection, fever or other significant changes in medical history since last office visit. PRIOR: Patient is a pleasant 52 years old female who presents today for post op week #3 follow up s/p Lumbar Nevro SCS implant on 12/27/[address] Soriano. Reports 80% pain relief at her current settings that was adjusted last week. She reports good pain relief, increased mobility, better sleep and better functioning and improved social interactions. Patient is wearing an abdominal binder. The tape was removed today. Her wounds are clean, without pathological discharge, redness, swelling, tenderness on palpation and signs of inflammation or infection. The wounds were washed with ChloraPrep and sterile dressing with bacitracin ointment was applied with Tegaderm films. Steri-strips are intact at battery pocket incisional line. Patient is instructed to wear abdominal binder / for the next 5 weeks. PRIOR: Tamanna is in my office again after the implantation ofthe Nevro SCS . Abdominal binder is taken off. The dressing was removed today. The wounds are very dry and clean. Eusebia are competent. No redness no swelling no pathological discharge no tenderness on palpation detected around the wounds. The wounds are worst with ChloraPrep and draped and dressed with sterile 4x4s covered with Tegaderm films. Next week we will remove eusebia. Limitations of physical activities including continue to were abdominal binder no twisting turning torso flexing no heavy lifting more than 5 lb by both hands for the next 7 weeks were explained to the patient again. Patient expressed understanding. Prior: Results of the Nevro SCS trial- She reported before the procedure pain 10/10. After the insertion of the epidural leads she reports the pain in the range of 3-4/10 - therefore this is 60- 70 % pain improvement. The patient also reports better mobility and better function while with the trial of the stimulator. She requests me to schedule the implant DOUG. She also requests today to perform bilateral trapesius muscle trigger point injection in her neck as she requested this procedure to be repeated today. I will do as she requested see as below. I think that she starts to feel more pain in the neck on the background of alleviation of the lower back pain. The dressing was removed and the sutures were severed. The leads were removed, the tips were intact. The sites are without pathological discharge , no redness , no swelling and no local temperature on palpation, no tenderness on palpation. Bacitracin ointmant dressing was applied. Left Diagnostic superior cluneal nerve block on 10/29/22, reported 75% pain relief for 12 hours status post procedure and ongoing 40% pain with increased improvement in her function, sleep or social interactions. However due to patient's uncertainty about her pain relieve we decided to repeat the procedure however the results were not as encouraging as they were 1st time. Past Procedures: 10/29/22: Left Diagnostic superior cluneal nerve block-75% pain relief for 12 hours, 40% ongoing pain relief 09/10/22: Bilateral Diagnostic L2-L3-L4 DR L5 MBB -50% for 24 hours PRIOR 09/10/22 patient denied the presence of pain in the right side and insisted that the all lower back pain is in the left, mostly in the projection of the left iliac crest as well as in the paraspinal region on the left. We decided to change the nature of the procedure to the left L2- L3- L4- L5 diagnostic MBB. Cluneal nerve pathology should be considered if the injection as above will not bring her significant pain relieve. This patient is under long observation with us originally she came to my office with complains on very strong bilateral knee pain she was treated with bilateral PNS by stim wave infrapatellar saphenous position. [facility] Medical History Seizure On beta christina at home On anticoagulant therapy SANDEE (obstructive sleep apnea) Morbid obesity with BMI of 45.0-49.9, adult Gout High cholesterol Hypertension COVID-19 Osteoarthritis of knees, bilateral History of gastric ulcer Left inguinal hernia (~2013) Lab test positive for detection of COVID-19 virus (~11/2019) Bleeding disorder Asthma Surgical History History of back surgery S/P partial hysterectomy (11/10/18) H/O umbilical hernia repair (07/25/06) Hx of endoscopy Family History Father Hx of diabetes insipidus Mother No problems noted. Social History Household Members: Family and Children Housing: House Alcohol intake: never Patient Tobacco Use Status: Never used Tobacco e-Cigarette/Vaping Use: Never Used Second Hand Smoke Exposure: No Advance Directives Date on File: 01/24/21 service: No Current occupational status: unemployed Current occupation: right handed Review of Systems Const All systems reviewed & are unremarkable except as noted in HPI and below Physical Exam Vital Signs: Last Vital Signs Pulse 60 03/13/23 11:17 BP 179/88 H 03/13/23 11:17 Pulse Ox 96 03/13/23 11:17 Oxygen Delivery Method Room Air 03/13/23 11:17 BMI result Body Mass Index 43.4 General: Appears afebrile. Alert and oriented. Mood and affect appropriate. Follows and participates in conversation appropriately. Respiratory effort is unlabored. No cough. Able to transition from sit to stand unassisted. Ambulates with bilaterally normal heel strike and toe off. Neck Neck: Yes normal visual inspection, Yes no lymphadenopathy, Yes supple, No anterior neck swelling, Yes no JVD and Yes prominent dorsocervical fat pad Back/Spine/Pelvis Cervical Spine: No Lhermitte's sign positive, cervical muscular tenderness, pain with cervical ROM and No Cervical spine tenderness Extrem General: Yes capillary refill normal, Yes no clubbing, cyanosis or edema and Yes no calf tenderness Left upper extremity: shoulder/upper arm Details: inspection abnormal, tenderness (anterior and posterior aspects) Location: over the biceps tendon and normal ROM; no swelling, no ecchymosis, no crepitus and no unsual warmth Results Reviewed Results Reviewed: XR SHOULDER, LEFT 01/17/23 CLINICAL INFORMATION: Left shoulder pain. FINDINGS: The bones and soft tissues appear unremarkable. No fracture appreciated. Glenohumeral and acromioclavicular alignment is anatomic with normal joint space. No abnormal soft tissue calcifications. IMPRESSION: Normal plain film examination of the left shoulder. XR CERVICAL SPINE 11/07/22 CLINICAL INFORMATION: Neck pain FINDINGS: There is mild straightening of cervical lordosis. There is loss of C4-C5, C5-C6 and C6-C7 disc heights with ventral spondylosis at the C4-C5 and C5-C6 disc levels. No visible acute fracture, dislocation or subluxation seen. The prevertebral soft tissues are normal. IMPRESSION: Degenerative disc changes C4-C5, C5-C6 and C6-C7 disc levels with ventral spondylosis. No visible acute fracture or dislocation seen. XR/XR hand LT min 3V 09/24/22 IMPRESSION: Unremarkable left hand. Assessment & Plan Assessment & Plan (1) Left shoulder pain: Code(s): M25.512 - Pain in left shoulder (2) Left elbow pain: Code(s): M25.522 - Pain in left elbow (3) DDD (degenerative disc disease), cervical: Code(s): M50.30 - Other cervical disc degeneration, unspecified cervical region (4) Cervical spondylosis: Code(s): M47.812 - Spondylosis without myelopathy or radiculopathy, cervical region Plan Recommend formal physical therapy for left upper extremity and neck pain. Left shoulder x-ray is normal. Reviewed previous cervical spine x-ray this patient and discussed interventional treatments for arthritic neck pain. Patient declined neck injections at this time. All questions and concerns have been answered and patient agreed with the plan. Patient will follow-up with hand specialist regarding left elbow and hand pain. Follow-up in 2-3 months to see response to physical therapy, if no response to physical therapy will consider further interventional strategy. Orders: Orders PT Evaluation and Treatment Today M19.049 - Primary osteoarthritis, unspecified hand, M25.512 - Pain in left shoulder, M25.522 - Pain in left elbow Coding Level of Care Code Est Pt Level 4 (06089) Diagnoses Left shoulder pain M25.512 Left elbow pain M25.522 DDD (degenerative disc disease), cervical M50.30 Cervical spondylosis M47.812
[2023-03-13 11:17] VITALS: BP 179/88; PULSE 60; O2SAT 96; BMI 43.4
== END 2023-03-13 11:31 | disposition home or self-care (01) ==
PROVIDERS: PCP Student in an Organized Health Care Education/Training Program; Visit Provider Nurse Practitioner Family
DX: M25.512 Pain in left shoulder (principal); M25.522 Pain in left elbow; M50.30 Other cervical disc degeneration, unspecified cervical region; M47.812 Spondylosis without myelopathy or radiculopathy, cervical region
CPT/HCPCS: 99214

== ENCOUNTER → 2023-03-13 11:09 | Outpatient (BNVA) | payer MEDICAID, SELFPAY | PROVIDERS: PCP Student in an Organized Health Care Education/Training Program; Visit Provider Nurse Practitioner Family | DX: M25.512 Pain in left shoulder (principal); M25.522 Pain in left elbow; M50.30 Other cervical disc degeneration, unspecified cervical region; M47.812 Spondylosis without myelopathy or radiculopathy, cervical region | CPT/HCPCS: 99212 ==

== ENCOUNTER 2023-03-31 08:16 | Outpatient (AMB) | payer MEDICAID, SELFPAY ==
[2023-03-31 08:48] VITALS: BP 124/74; PULSE 60; O2SAT 98
--- NOTE | 2023-03-31 08:48 | A.OFFVIS_ITS ---
Intake Vital Signs 03/31/23 08:48 BP 124/74 Blood Pressure Location Lt brachial Position Sitting Pulse 60 Pulse Source Pulse Oximeter Pulse Oximetry (%) 98 Oxygen Delivery Method Room Air Intake Visit Reasons: procedure discussion Allergies aspirin Adverse Reaction (Mild, Verified 03/31/23 08:49) mild vaginal bleeding Medication List - Last Reconciled 03/31/23 by Alba Swenson, RN albuterol sulfate 90 mcg/actuation (ProAir HFA) 2 puffs inhalation Q6H PRN albuterol sulfate 2.5 mg (6 mL) inhalation Q4-6H PRN 30 days amlodipine 5 mg PO DAILY apixaban (Eliquis) 5 mg PO BID ascorbic acid (vitamin C) ER 500 mg PO DAILY atorvastatin 40 mg PO BEDTIME cetirizine 10 mg PO BEDTIME clonidine HCl 0.1 mg PO BID docusate sodium (DOK) 100 mg PO BID duloxetine 30 mg PO BEDTIME ergocalciferol (vitamin D2) 1,250 mcg PO FR@0900 ferrous sulfate (FeroSul) 325 mg PO DAILY fluticasone propion-salmeterol 115-21 mcg/actuation (Advair HFA) 2 puffs inhalation BID 30 days furosemide 10 mg PO DAILY losartan 100 mg PO DAILY metoprolol tartrate 50 mg PO BID montelukast 10 mg PO BEDTIME omeprazole 40 mg PO oxycodone 5 mg PO Q4H PRN 5 days MDD 6 topiramate 100 mg PO BEDTIME HPI HPI Comments History of Present Illness Details Tamanna is back in my office with complain on cervical pain with radiation to the left upper extremity or left side of the thoracic back and even down to the left loin. She also reports associated weakness in the left upper extremity and awkwardness of left upper extremity. She is a subject of multiple interventional procedures. She recently had implantation of spinal cord stimulator to treat her lower back pain. She still reports 80% of pain improvement on spinal cord stimulator. On background of improved lower back pain the thoracic and cervical pain comes to foreground. She was a subject of x-ray of the cervical spine results of which dictated as below. She has positive provocation test as below. [facility] Medical History Seizure On beta christina at home On anticoagulant therapy SANDEE (obstructive sleep apnea) Morbid obesity with BMI of 45.0-49.9, adult Gout High cholesterol Hypertension COVID-19 Osteoarthritis of knees, bilateral History of gastric ulcer Left inguinal hernia (~2013) Lab test positive for detection of COVID-19 virus (~11/2019) Bleeding disorder Asthma Surgical History History of back surgery S/P partial hysterectomy (11/10/18) H/O umbilical hernia repair (07/25/06) Hx of endoscopy Family History Father Hx of diabetes insipidus Mother No problems noted. Social History Household Members: Family and Children Housing: House Alcohol intake: never Patient Tobacco Use Status: Never used Tobacco e-Cigarette/Vaping Use: Never Used Second Hand Smoke Exposure: No Advance Directives Date on File: 01/24/21 service: No Current occupational status: unemployed Current occupation: right handed Review of Systems Const All systems reviewed & are unremarkable except as noted in HPI and below Physical Exam Vital Signs: Last Vital Signs Pulse 60 03/31/23 08:48 BP 124/74 03/31/23 08:48 Pulse Ox 98 03/31/23 08:48 Oxygen Delivery Method Room Air 03/31/23 08:48 General: Appears afebrile. Alert and oriented. Mood and affect appropriate. Follows and participates in conversation appropriately. Respiratory effort is unlabored. No cough. Able to transition from sit to stand unassisted. Ambulates with bilaterally normal heel strike and toe off. Neck Other: Positive Spurling test on the left, Lhermitte test, Valsalva positive as well. Neck: Yes normal visual inspection, No full ROM, Yes no lymphadenopathy, Yes no meningeal signs, No supple, No anterior neck swelling, Yes no JVD and Yes prominent dorsocervical fat pad Back/Spine/Pelvis Cervical Spine: No Lhermitte's sign positive, cervical muscular tenderness, pain with cervical ROM and No Cervical spine tenderness Neuro General: no meningeal signs Extrem General: Yes capillary refill normal, Yes no clubbing, cyanosis or edema and Yes no calf tenderness Left upper extremity: shoulder/upper arm Details: inspection abnormal, tenderness (anterior and posterior aspects) Location: over the biceps tendon and normal ROM; no swelling, no ecchymosis, no crepitus and no unsual warmth Results Reviewed Results Reviewed: X-ray cervical spine: There is mild straightening of cervical lordosis. There is loss of C4-C5, C5-C6 and C6-C7 disc heights with ventral spondylosis at the C4-C5 and C5-C6 disc levels. No visible acute fracture, dislocation or subluxation seen. The prevertebral soft tissues are normal. XR/XR cervical spine 3V IMPRESSION: Degenerative disc changes C4-C5, C5-C6 and C6-C7 disc levels with ventral spondylosis. No visible acute fracture or dislocation seen. Assessment & Plan Assessment & Plan (1) Left shoulder pain: Code(s): M25.512 - Pain in left shoulder (2) Left elbow pain: Code(s): M25.522 - Pain in left elbow (3) DDD (degenerative disc disease), cervical: Code(s): M50.30 - Other cervical disc degeneration, unspecified cervical region (4) Cervical spondylosis: Code(s): M47.812 - Spondylosis without myelopathy or radiculopathy, cervical region (5) Radiculopathy, cervical: Code(s): M54.12 - Radiculopathy, cervical region Plan She completed formal physical therapy for left upper extremity and neck pain. The results all less than encouraging. Left shoulder x-ray is normal. However x-ray of the cervical spine demonstrated significant disc degeneration. In combination with provocative tests of Valsalva maneuver and Spurling the left as well as patient report of weakness and awkwardness of the left upper extremity I suspect patient has radiculopathy of the cervical spine. I will schedule her for the MRI of the cervical spine. She completed physical therapy with no results. She tried NSAIDs and NSAIDs cause severe GI issues with her. Next appointment in 3 weeks, earlier if her MRI will come through sooner. . Orders: Orders MR cervical spine wo con Today M47.812 - Spondylosis without myelopathy or radiculopathy, cervical region, M50.30 - Other cervical disc degeneration, unspecified cervical region, M54.12 - Radiculopathy, cervical region, Z96.89 - Presence of other specified functional implants Coding Level of Care Code Est Pt Level 4 (70046) Diagnoses Left shoulder pain M25.512 Left elbow pain M25.522 DDD (degenerative disc disease), cervical M50.30 Cervical spondylosis M47.812 Radiculopathy, cervical M54.12
== END 2023-03-31 09:05 | disposition home or self-care (01) ==
PROVIDERS: PCP Student in an Organized Health Care Education/Training Program; Visit Provider Anesthesiology
DX: M25.512 Pain in left shoulder (principal); M25.522 Pain in left elbow; M50.30 Other cervical disc degeneration, unspecified cervical region; M47.812 Spondylosis without myelopathy or radiculopathy, cervical region; M54.12 Radiculopathy, cervical region
CPT/HCPCS: 99213

== ENCOUNTER → 2023-03-31 08:16 | Outpatient (BNVA) | payer MEDICAID, SELFPAY | PROVIDERS: PCP Student in an Organized Health Care Education/Training Program; Visit Provider Anesthesiology | DX: M25.512 Pain in left shoulder (principal); M25.522 Pain in left elbow; M50.30 Other cervical disc degeneration, unspecified cervical region; M47.812 Spondylosis without myelopathy or radiculopathy, cervical region; M54.12 Radiculopathy, cervical region | CPT/HCPCS: 99212 ==

== ENCOUNTER 2023-04-02 08:14 | Outpatient (REF) | payer MEDICAID, SELFPAY ==
[2023-04-02 08:40] LABS: MANUAL DIFF FLAG NO
[2023-04-02 08:45] LABS: Basophils Absolute Auto 0.1 X10*3/uL (0.0-0.2); Basophils Percent Auto 0.5 % (0-2); Eosinophils Absolute Auto 0.3 X10*3/uL (0.0-0.4); Eosinophils Percent Auto 2.8 % (0-4); Hematocrit 38.4 % (37.0-47.0); Hemoglobin 12.8 g/dl (12.0-16.0); Imm Gran Abs Auto 0.02 X10*3/uL (0.00-0.03); Imm Gran Pct Auto 0.2 % (0.0-0.4); Lymphocytes Absolute Auto 3.4 X10*3/uL (1.2-4.9); Lymphocytes Percent Auto 32.9 % (20-40); Mean Corpuscular HGB Conc 33.3 g/dl (31.0-35.0); Mean Corpuscular Hemoglobin 29.1 pg (27.0-33.0); Mean Corpuscular Volume 87.3 fL (80.0-98.0); Mean Platelet Volume 10.1 fL (9.4-12.3); Monocytes Absolute Auto 0.6 X10*3/uL (0.1-1.2); Monocytes Percent Auto 5.9 % (2-11); Neutrophils Percent Auto 57.7 % (45-73); Platelet Count 446 X10*3/uL (160-400); Red Cell Distribution Width 13.7 % (11.0-16.0); White Blood Count 10.4 X10*3/uL (4.8-10.8)
[2023-04-02 09:20] LABS: Alanine Aminotransferase 25 U/L (0-31); Albumin Level 4.4 g/dL (3.5-5.0); Alkaline Phosphatase 161 U/L (39-117); Anion Gap 15 (12-20); Aspartate Amino Transferase 23 U/L (5-31); Bilirubin Direct 0.2 mg/dL (0.0-0.5); Bilirubin Total 0.5 mg/dL (0.0-1.0); Blood Urea Nitrogen 20 mg/dL (9-16); Calcium 9.4 mg/dL (8.4-10.2); Carbon Dioxide 23 mmol/L (22-29); Chloride 106 mmol/L (96-108); Cholesterol 122 mg/dL (<200); Estimated Glomerular Filt Rate > 60; Glucose Random 120 mg/dL (60-115); HDL Cholesterol 35 mg/dL (>40); LDL Cholesterol Calculated 57 mg/dL (<100); Potassium 3.9 mmol/L (3.3-5.1); Sodium 140 mmol/L (135-145); Triglycerides 152 mg/dL (<150)
[2023-04-02 09:37] LABS: ~HepC Num1 0.05 S/CO (0.00-0.79); ~Hepatitis C Antibody Nonreactive (Nonreactive)
[2023-04-02 12:10] LABS: Vitamin D 25-OH Total 45.1 ng/mL (>30)
[2023-04-06 16:12] LABS: HIV RNA PCR Qn Copies Not Detected Copies/mL; HIV RNA PCR Qn Log Copies Not Detected Log cps/mL
== END 2023-04-02 08:15 | disposition home or self-care (01) ==
LOC: HO.LAB 08:14
PROVIDERS: PCP Student in an Organized Health Care Education/Training Program; Visit Provider Student in an Organized Health Care Education/Training Program
DX: R74.8 Abnormal levels of other serum enzymes (principal); J45.909 Unspecified asthma, uncomplicated; G47.33 Obstructive sleep apnea (adult) (pediatric)
CPT/HCPCS: 36415; 80048; 80061; 80076; 82306; 85025; 86803; 87536; 87900; 99212

== ENCOUNTER 2023-04-02 09:01 | Outpatient (AMB) | payer MEDICAID, SELFPAY ==
[2023-04-02 09:17] VITALS: BP 123/84; PULSE 60; O2SAT 98; BMI 43.5
--- NOTE | 2023-04-02 09:17 | A.OFFVIS_ITS ---
Intake Vital Signs 04/02/23 09:17 Height 5 ft 9 in Weight 294 lb 5.074 oz BMI 43.5 BP 123/84 Blood Pressure Location Rt brachial Position Sitting Pulse 60 Pulse Source Doppler Pulse Oximetry (%) 98 Oxygen Delivery Method Room Air Intake Visit Reasons: asthma Allergies aspirin Adverse Reaction (Mild, Verified 04/02/23 09:19) mild vaginal bleeding HPI asthma HPI Details 52-year-old lady follow-up underlying se nida obstructive sleep apnea, asthma, and environmental allergies. She has received her CPAP machine and now his sleep apnea symptoms are well controlled. She also continues to use Advair, albuterol MDI, and nebs with good control of her underlying asthma symptoms. She denies recent exacerbations. [facility] Medical History Seizure On beta christina at home On anticoagulant therapy SANDEE (obstructive sleep apnea) Morbid obesity with BMI of 45.0-49.9, adult Gout High cholesterol Hypertension COVID-19 Osteoarthritis of knees, bilateral History of gastric ulcer Left inguinal hernia (~2013) Lab test positive for detection of COVID-19 virus (~11/2019) Bleeding disorder Asthma Surgical History History of back surgery S/P partial hysterectomy (11/10/18) H/O umbilical hernia repair (07/25/06) Hx of endoscopy Family History Father Hx of diabetes insipidus Mother No problems noted. Social History Household Members: Family and Children Housing: House Alcohol intake: never Patient Tobacco Use Status: Never used Tobacco e-Cigarette/Vaping Use: Never Used Second Hand Smoke Exposure: No Advance Directives Date on File: 01/24/21 service: No Current occupational status: unemployed Current occupation: right handed Review of Systems Const Denies daytime sleepiness, Denies excessive sweating, Denies fatigue, Denies fever(s), Denies lethargy, Denies malaise, Denies night sweats, Denies snoring and Denies weight loss Eyes Denies blurry vision and Denies itchy eyes ENT Denies nasal congestion, Denies post nasal drip, Denies sinus pain, Denies sinus pressure and Denies other ( Thrush) Card Denies chest pain, Denies pedal edema, Denies dyspnea, Denies orthopnea and Denies paroxysmal nocturnal dyspnea Resp Denies cough, Denies hemoptysis, Denies excessive phlegm production, Denies dyspnea, Denies snoring and Denies wheezing GI Denies abdominal pain and Denies heartburn Musc Denies myalgias, Denies arthralgias and Denies joint swelling Skin/Breast Denies rash Neuro Denies memory loss and Denies seizure-like activity Psych Denies abnormal sleep pattern, Denies anxiety and Denies memory loss Endo Denies excessive sweating, Denies fatigue and Denies heat intolerance Mandeep/Lymph Denies easy bruising Aller/Immun Denies itchy eyes, Denies seasonal rhinorrhea and Denies wheezing Physical Exam Vital Signs: Last Vital Signs Pulse 60 04/02/23 09:17 BP 123/84 04/02/23 09:17 Pulse Ox 98 04/02/23 09:17 Oxygen Delivery Method Room Air 04/02/23 09:17 BMI result Body Mass Index 43.5 Const General: no acute distress and alert Nutritional Appearance: obese Orientation/consciousness: Other orientation findings ( oriented) HEENT Head: Yes atraumatic Eyes General: appearance normal, both eyes and all related structures Sclerae: sclerae normal EOM: EOMs intact bilaterally Neck Neck: Yes supple Lymphatic: no lymphadenopathy noted Resp Effort & Inspection: normal respiratory effort and no use of accessory muscles Auscultation: clear to auscultation bilaterally Cardio Rate: regular rate Rhythm: regular rhythm Heart sounds: no gallops, no murmurs and no rubs Skin General skin exam: other ( warm) Extrem General: No clubbing, No cyanosis and No edema Assessment & Plan Assessment & Plan (1) Asthma: Code(s): J45.909 - Unspecified asthma, uncomplicated Plan: Well controlled on current regimen of Advair, albuterol MDI/nebs. Continue current regimen. (2) SANDEE (obstructive sleep apnea): Code(s): G47.33 - Obstructive sleep apnea (adult) (pediatric) Plan: Well controlled on current CPAP therapy. Continue CPAP therapy. Coding Level of Care Code Est Pt Level 4 (99131) Diagnoses Asthma J45.909 SANDEE (obstructive sleep apnea) G47.33
== END 2023-04-02 09:28 | disposition home or self-care (01) ==
PROVIDERS: PCP Student in an Organized Health Care Education/Training Program; Visit Provider Internal Medicine Pulmonary Disease
DX: J45.909 Unspecified asthma, uncomplicated (principal); G47.33 Obstructive sleep apnea (adult) (pediatric)
CPT/HCPCS: 99214

== ENCOUNTER 2023-04-09 08:37 | Outpatient (AMB) | payer MEDICAID, SELFPAY ==
--- NOTE | 2023-04-09 08:39 | MHC.OFFVIS ---
Intake Vital Signs 04/09/23 08:51 04/09/23 15:43 04/09/23 15:43 Height 5 ft 9 in Weight 294 lb BMI 43.4 BP 130/82 182/100 H 170/86 H Blood Pressure Location Rt brachial Lt brachial Rt brachial Position Sitting Sitting Sitting Respiration 18 Pulse 60 Pulse Source Pulse Oximeter Pulse Oximetry (%) 98 Oxygen Delivery Method Room Air Intake Visit Reasons: KNEE SWELLING Allergies aspirin Adverse Reaction (Mild, Verified 04/09/23 08:53) mild vaginal bleeding HPI HPI Comments History of Present Illness Details Tamanna is back in my office with complain on severe swelling and severe pain in bilateral feet. She reports that this pain is on the for ground. She admits that she is not wearing the stimulating device is 06/01, she in fact is not wearing them today. I pointed it to her today that it is in her best interest to were the stimulating device at least when her legs are experiencing the most significant workload. She is requesting me to perform bilateral injection into her knee joints. She received similar injection with steroids in her knees about 9 months ago. I agree to perform the injection see description of the procedure down below. She is not diabetic and she has means to measure her blood sugar. She is actually asthmatic and the she has been being administered oral steroids from time to time. Prior: Complains on cervical pain with radiation to the left upper extremity or left side of the thoracic back and even down to the left loin. She also reports associated weakness in the left upper extremity and awkwardness of left upper extremity. She is a subject of multiple interventional procedures. She recently had implantation of spinal cord stimulator to treat her lower back pain. She still reports 80% of pain improvement on spinal cord stimulator. On background of improved lower back pain the thoracic and cervical pain comes to foreground. She was a subject of x-ray of the cervical spine results of which dictated as below. [facility] Medical History Seizure On beta christina at home On anticoagulant therapy SANDEE (obstructive sleep apnea) Morbid obesity with BMI of 45.0-49.9, adult Gout High cholesterol Hypertension COVID-19 Osteoarthritis of knees, bilateral History of gastric ulcer Left inguinal hernia (~2013) Lab test positive for detection of COVID-19 virus (~11/2019) Bleeding disorder Asthma Surgical History History of back surgery S/P partial hysterectomy (11/10/18) H/O umbilical hernia repair (07/25/06) Hx of endoscopy Family History Father Hx of diabetes insipidus Mother No problems noted. Social History Household Members: Family and Children Housing: House Alcohol intake: never Patient Tobacco Use Status: Never used Tobacco e-Cigarette/Vaping Use: Never Used Second Hand Smoke Exposure: No Advance Directives Date on File: 01/24/21 service: No Current occupational status: unemployed Current occupation: right handed Review of Systems Const All systems reviewed & are unremarkable except as noted in HPI and below Physical Exam Vital Signs: Last Vital Signs Pulse 60 04/09/23 08:51 Resp 18 04/09/23 08:51 BP 170/86 H 04/09/23 15:43 Pulse Ox 98 04/09/23 08:51 Oxygen Delivery Method Room Air 04/09/23 08:51 BMI result Body Mass Index 43.4 General: Appears afebrile. Alert and oriented. Mood and affect appropriate. Follows and participates in conversation appropriately. Respiratory effort is unlabored. No cough. Able to transition from sit to stand unassisted. Ambulates with bilaterally normal heel strike and toe off. Neck Other: Positive Spurling test on the left, Lhermitte test, Valsalva positive as well. Neck: Yes normal visual inspection, No full ROM, Yes no lymphadenopathy, Yes no meningeal signs, No supple, No anterior neck swelling, Yes no JVD and Yes prominent dorsocervical fat pad Resp Effort & Inspection: abnormal respiratory effort, not able to speak in complete sentences, abnormal respiratory pattern, audible wheezes, no cough, grunting and labored Cardio Jugular venous distension: no JVD Back/Spine/Pelvis Cervical Spine: No Lhermitte's sign positive, cervical muscular tenderness, pain with cervical ROM and No Cervical spine tenderness Neuro General: no meningeal signs Extrem General: Yes capillary refill normal, Yes no clubbing, cyanosis or edema and Yes no calf tenderness Left upper extremity: shoulder/upper arm Details: inspection abnormal, tenderness (anterior and posterior aspects) Location: over the biceps tendon and normal ROM; no swelling, no ecchymosis, no crepitus and no unsual warmth Assessment & Plan Assessment & Plan (1) Left shoulder pain: Code(s): M25.512 - Pain in left shoulder (2) Left elbow pain: Code(s): M25.522 - Pain in left elbow (3) DDD (degenerative disc disease), cervical: Code(s): M50.30 - Other cervical disc degeneration, unspecified cervical region (4) Cervical spondylosis: Code(s): M47.812 - Spondylosis without myelopathy or radiculopathy, cervical region (5) Radiculopathy, cervical: Code(s): M54.12 - Radiculopathy, cervical region (6) Arthritis of knee: Comment: bilateral Code(s): M17.10 - Unilateral primary osteoarthritis, unspecified knee (7) Osteoarthritis of knees, bilateral: Code(s): M17.0 - Bilateral primary osteoarthritis of knee (8) Asthma: Code(s): J45.909 - Unspecified asthma, uncomplicated (9) Osteoarthritis of knees, bilateral: Code(s): M17.0 - Bilateral primary osteoarthritis of knee Plan: The patient was positioned sitting on the examination table. Her bilateral lower legs were allowed to freely dangle down in the year. Anterior lateral surfaces of the both knees were prepped with ChloraPrep and sterilely obtained 5 cc of ropivacaine mixed with Kenalog 40 mg was injected into each knee in retropatellar fashion. The patient tolerated procedure well needles were removed Band-Aid is were applied. Plan She requests me to perform bilateral knee injections today. I see no contraindications for the procedure. In fact actually she has wheezing on physical exam today and I think asthma is in exacerbation as well and systemic action of steroids I am going to administer to her might have beneficial effect on the asthmatic condition. She has blood sugar machine at home and she can measure her blood sugar though she is not diabetic. . Patient Instructions: I here by testify that I spent 30 minutes with this patient today examining her prior records, documenting procedures and organizing the note and giving the patient recommendations. Additional 10 minutes I spent doing the procedure on her bilateral knees. Coding Level of Care Code Est Pt Level 4 (65287) Procedure Only Diagnoses Left shoulder pain M25.512 Left elbow pain M25.522 DDD (degenerative disc disease), cervical M50.30 Cervical spondylosis M47.812 Radiculopathy, cervical M54.12 Arthritis of knee M17.10 Osteoarthritis of knees, bilateral M17.0 Asthma J45.909
[2023-04-09 08:51] VITALS: BP 130/82; PULSE 60; RESP 18; O2SAT 98; BMI 43.4
[2023-04-09 15:43] VITALS: BP 170/86; BP 182/100
== END 2023-04-09 09:31 | disposition home or self-care (01) ==
PROVIDERS: PCP Student in an Organized Health Care Education/Training Program; Visit Provider Anesthesiology
DX: M25.512 Pain in left shoulder (principal); M25.522 Pain in left elbow; M50.30 Other cervical disc degeneration, unspecified cervical region; M17.0 Bilateral primary osteoarthritis of knee; M47.812 Spondylosis without myelopathy or radiculopathy, cervical region; M54.12 Radiculopathy, cervical region; J45.909 Unspecified asthma, uncomplicated
CPT/HCPCS: 20610; 99214

== ENCOUNTER → 2023-04-09 08:37 | Outpatient (BNVA) | payer MEDICAID, SELFPAY | PROVIDERS: PCP Student in an Organized Health Care Education/Training Program; Visit Provider Anesthesiology | DX: M17.0 Bilateral primary osteoarthritis of knee (principal); M50.30 Other cervical disc degeneration, unspecified cervical region; M47.812 Spondylosis without myelopathy or radiculopathy, cervical region; M54.12 Radiculopathy, cervical region; M25.512 Pain in left shoulder; M25.522 Pain in left elbow; J45.909 Unspecified asthma, uncomplicated | CPT/HCPCS: 20610; 99212; J3301 ==

== ENCOUNTER 2023-04-21 08:19 | Outpatient (AMB) | payer MEDICAID, SELFPAY ==
--- NOTE | 2023-04-21 08:45 | MHC.OFFVIS ---
Intake Vital Signs 04/21/23 08:51 Height 5 ft 9 in Weight 294 lb BMI 43.4 BP 134/80 Blood Pressure Location Lt brachial Position Sitting Respiration 16 Pulse 60 Pulse Source Pulse Oximeter Pulse Oximetry (%) 97 Oxygen Delivery Method Room Air Intake Visit Reasons: Three Wk Follow Up per Dr. Soriano/confirmed Intake Note: patient comes in for 3 weeks follow up. pain level today is 8/10. Allergies aspirin Adverse Reaction (Mild, Verified 04/21/23 08:50) mild vaginal bleeding HPI HPI Comments History of Present Illness Details Tamanna is back in my office with complain on severe swelling in the anterior shoulder and pain in the left shoulder joint. Originally I thought about giving her intra-articular left shoulder injection. For this purpose I sent her for the x-ray of the left shoulder however the x-ray did not demonstrate significant changes in the bony structures, did not demonstrate any possible arthritis. Therefore I would have to withdraw my offer for shoulder injection. I will send her for physical therapy. If physical therapy will not be effective considering possibility of soft tissue changes in the shoulder joint I will refer the patient to orthopedic surgeon. Prior: Complains on cervical pain with radiation to the left upper extremity or left side of the thoracic back and even down to the left loin. She also reports associated weakness in the left upper extremity and awkwardness of left upper extremity. She is a subject of multiple interventional procedures. She recently had implantation of spinal cord stimulator to treat her lower back pain. She still reports 80% of pain improvement on spinal cord stimulator. On background of improved lower back pain the thoracic and cervical pain comes to foreground. She was a subject of x-ray of the cervical spine results of which dictated as below. REPLACED BY [facility] Medical History Seizure On beta christina at home On anticoagulant therapy SANDEE (obstructive sleep apnea) Morbid obesity with BMI of 45.0-49.9, adult Gout High cholesterol Hypertension COVID-19 Osteoarthritis of knees, bilateral History of gastric ulcer Left inguinal hernia (~2013) Lab test positive for detection of COVID-19 virus (~11/2019) Bleeding disorder Asthma Surgical History History of back surgery S/P partial hysterectomy (11/10/18) H/O umbilical hernia repair (07/25/06) Hx of endoscopy Family History Father Hx of diabetes insipidus Mother No problems noted. Social History Household Members: Family and Children Housing: House Alcohol intake: never Patient Tobacco Use Status: Never used Tobacco e-Cigarette/Vaping Use: Never Used Second Hand Smoke Exposure: No Advance Directives Date on File: 01/24/21 service: No Current occupational status: unemployed Current occupation: right handed Review of Systems Const All systems reviewed & are unremarkable except as noted in HPI and below Physical Exam Vital Signs: Last Vital Signs Pulse 60 04/21/23 08:51 Resp 16 04/21/23 08:51 BP 134/80 04/21/23 08:51 Pulse Ox 97 04/21/23 08:51 Oxygen Delivery Method Room Air 04/21/23 08:51 BMI result Body Mass Index 43.4 General: Appears afebrile. Alert and oriented. Mood and affect appropriate. Follows and participates in conversation appropriately. Respiratory effort is unlabored. No cough. Able to transition from sit to stand unassisted. Ambulates with bilaterally normal heel strike and toe off. Neck Other: Positive Spurling test on the left, Lhermitte test, Valsalva positive as well. Neck: Yes normal visual inspection, No full ROM, Yes no lymphadenopathy, Yes no meningeal signs, No supple, No anterior neck swelling, Yes no JVD and Yes prominent dorsocervical fat pad Resp Effort & Inspection: abnormal respiratory effort, not able to speak in complete sentences, abnormal respiratory pattern, audible wheezes, no cough, grunting and labored Cardio Jugular venous distension: no JVD Back/Spine/Pelvis Cervical Spine: No Lhermitte's sign positive, cervical muscular tenderness, pain with cervical ROM and No Cervical spine tenderness Neuro General: no meningeal signs Extrem General: Yes capillary refill normal, Yes no clubbing, cyanosis or edema and Yes no calf tenderness Left upper extremity: shoulder/upper arm Details: inspection abnormal, tenderness (anterior and posterior aspects) Location: over the biceps tendon and normal ROM; no swelling, no ecchymosis, no crepitus and no unsual warmth Assessment & Plan Assessment & Plan (1) Left shoulder pain: Code(s): M25.512 - Pain in left shoulder (2) Left elbow pain: Code(s): M25.522 - Pain in left elbow (3) DDD (degenerative disc disease), cervical: Code(s): M50.30 - Other cervical disc degeneration, unspecified cervical region (4) Cervical spondylosis: Code(s): M47.812 - Spondylosis without myelopathy or radiculopathy, cervical region (5) Radiculopathy, cervical: Code(s): M54.12 - Radiculopathy, cervical region (6) Arthritis of knee: Comment: bilateral Code(s): M17.10 - Unilateral primary osteoarthritis, unspecified knee (7) Osteoarthritis of knees, bilateral: Code(s): M17.0 - Bilateral primary osteoarthritis of knee (8) Asthma: Code(s): J45.909 - Unspecified asthma, uncomplicated (9) Osteoarthritis of knees, bilateral: Code(s): M17.0 - Bilateral primary osteoarthritis of knee Plan The patient now is here with new complaints on swelling and pain on anterior surface of the left shoulder. The patient was sent for shoulder x-ray and demonstrated no bony changes. Therefore no shoulder injection is possible for this patient. I I want to send her for physical therapy. She informed me that she is starting physical therapy next week. I will wait until she completes physical therapy. If her pain is not improved I probably will refer her to orthopedic surgery consult. . Coding Level of Care Code Est Pt Level 3 (52621) Diagnoses Left shoulder pain M25.512 Left elbow pain M25.522 DDD (degenerative disc disease), cervical M50.30 Cervical spondylosis M47.812 Radiculopathy, cervical M54.12 Arthritis of knee M17.10 Osteoarthritis of knees, bilateral M17.0 Asthma J45.909
[2023-04-21 08:51] VITALS: BP 134/80; PULSE 60; RESP 16; O2SAT 97; BMI 43.4
== END 2023-04-21 09:00 | disposition home or self-care (01) ==
PROVIDERS: PCP Student in an Organized Health Care Education/Training Program; Visit Provider Anesthesiology
DX: M25.512 Pain in left shoulder (principal); M25.522 Pain in left elbow; M50.30 Other cervical disc degeneration, unspecified cervical region; M47.812 Spondylosis without myelopathy or radiculopathy, cervical region; M54.12 Radiculopathy, cervical region; M17.10 Unilateral primary osteoarthritis, unspecified knee; M17.0 Bilateral primary osteoarthritis of knee; J45.909 Unspecified asthma, uncomplicated
CPT/HCPCS: 99213

== ENCOUNTER → 2023-04-21 08:19 | Outpatient (BNVA) | payer MEDICAID, SELFPAY | PROVIDERS: PCP Student in an Organized Health Care Education/Training Program; Visit Provider Anesthesiology | DX: M25.512 Pain in left shoulder (principal); M25.552 Pain in left hip; M50.30 Other cervical disc degeneration, unspecified cervical region; M47.22 Other spondylosis with radiculopathy, cervical region; M17.0 Bilateral primary osteoarthritis of knee; J45.909 Unspecified asthma, uncomplicated | CPT/HCPCS: 99212 ==

== ENCOUNTER 2023-05-16 16:43 | Emergency (ER) | payer MEDICAID, SELFPAY ==
--- NOTE | ~2023-05-16 | XR_ITS ---
EXAMINATION: XR SHOULDER, LEFT CLINICAL INFORMATION: Worsening chronic pain COMPARISON: 01/17/2023 TECHNIQUE: Three views of the left shoulder. FINDINGS: Glenohumeral alignment is anatomic. No acute fracture is seen. The acromioclavicular joint appears intact with mild degenerative change. XR/XR shoulder LT min 2V IMPRESSION: No acute findings. Mild degenerative change of the acromioclavicular joint.
--- NOTE | ~2023-05-16 | XR_ITS ---
EXAMINATION: XR CHEST CLINICAL INFORMATION: Shortness of breath. Chest pain. COMPARISON: 02/01/2021. TECHNIQUE: 2 views of the chest were obtained. FINDINGS: No significant abnormality is noted involving the heart, lungs, mediastinum, bony thorax or soft tissues. XR/XR chest 2V IMPRESSION: Unremarkable examination.
--- NOTE | ~2023-05-16 | XR_ITS ---
EXAMINATION: XR ELBOW, LEFT CLINICAL INFORMATION: Worsening chronic pain COMPARISON: None available. TECHNIQUE: AP, lateral, and oblique views of the left elbow. FINDINGS: Osseous alignment is anatomic. No acute fracture is seen. Joint spaces appear maintained. Tiny olecranon spur noted. No appreciable joint effusion. XR/XR elbow LT min 3V IMPRESSION: No acute findings identified.
--- NOTE | ~2023-05-16 | XR_ITS ---
EXAMINATION: XR CERVICAL SPINE CLINICAL INFORMATION: Neck pain, left arm pain COMPARISON: 11/07/2022 TECHNIQUE: 3 views of the cervical spine were obtained. FINDINGS: There is anatomic alignment of the cervical vertebral bodies and posterior elements. Straightening of the cervical lordosis is noted. Vertebral body heights are maintained. There is mild disc space narrowing in the mid to lower cervical spine along with endplate osteophytes. No acute fracture is seen. No significant prevertebral soft tissue swelling. XR/XR cervical spine 3V IMPRESSION: No acute findings identified. Chronic appearing and degenerative changes as noted above.
--- NOTE | 2023-05-16 16:45 | ECG_ITS ---
Test Reason : CHEST PAIN Blood Pressure : / mmHG Vent. Rate : 070 BPM Atrial Rate : 070 BPM P-R Int : 154 ms QRS Dur : 100 ms QT Int : 418 ms P-R-T Axes : 053 -37 021 degrees QTc Int : 451 ms Normal sinus rhythm Left axis deviation Incomplete right bundle branch block Minimal voltage criteria for LVH, may be normal variant ( [place] product ) Abnormal ECG When compared with ECG of 07-NOV-2022 20:34, No significant change was found Referred By: Generic ED Physician Electronically Signed By:MALENA SNIDER MD
--- NOTE | 2023-05-16 17:10 | ED.CHESTPAIN ---
HPI - Chest Pain General Chief Complaint: Chest Pain Stated Complaint: chest pain numbness left side Time Seen by Provider: 05/16/23 23:05 History of Present Illness HPI narrative: The patient is a 53-year-old female history of multiple medical problems including chronic pain. She has two implanted muscle stimulator devices, 1 in her lower back and 1 in the right gluteal area, for management of chronic back and right leg pain. She sees pain specialist. She is not on any pain medications. She has had pain in her left arm that has been worsening over the last several months. She says that the pain in the left arm is maximal in the region of the left humeral area but that the whole arm is painful. She says she has been seen by her regular doctors and has been told that she has arthritis which is causing her lot of pain. She has been scheduled to have an MRI of her cervical spine in about 3 weeks time. Over the last several days the pain in the left arm has gotten a lot worse so that she has trouble using her left arm and hand and she came to the emergency room. She says that when she does activities of daily living such as dressing or cooking she has having a great deal of trouble using her left arm and left hand. No fever, sweats, chills. Related Data Home Medications Medication Instructions Recorded Confirmed albuterol sulfate 90 mcg/actuation 2 puff inhalation Q6H PRN 04/27/20 03/31/23 aerosol inhaler (ProAir HFA) Shortness Of Breath cetirizine 10 mg tablet 10 mg PO BEDTIME 04/27/20 03/31/23 docusate sodium 100 mg capsule 100 mg PO BID 04/27/20 03/31/23 (DOK) duloxetine 30 mg capsule,delayed 30 mg PO BEDTIME 04/27/20 03/31/23 release metoprolol tartrate 50 mg tablet 50 mg PO BID 04/27/20 03/31/23 montelukast 10 mg tablet 10 mg PO BEDTIME 04/27/20 03/31/23 clonidine HCl 0.1 mg tablet 0.1 mg PO BID 06/05/20 03/31/23 apixaban 5 mg tablet (Eliquis) 5 mg PO BID 06/28/20 03/31/23 atorvastatin 40 mg tablet 40 mg PO BEDTIME 06/28/20 03/31/23 losartan 100 mg tablet 100 mg PO DAILY 06/28/20 03/31/23 furosemide 20 mg tablet 10 mg PO DAILY 12/25/21 03/31/23 topiramate 100 mg tablet 100 mg PO BEDTIME 12/25/21 03/31/23 ergocalciferol (vitamin D2) 1,250 1,250 mcg PO FR@0900 01/08/22 03/31/23 mcg (50,000 unit) capsule ferrous sulfate 325 mg (65 mg 325 mg PO DAILY 01/08/22 03/31/23 iron) tablet (FeroSul) amlodipine 5 mg tablet 5 mg PO DAILY 09/24/22 03/31/23 ascorbic acid (vitamin C) 500 mg 500 mg PO DAILY 10/06/22 03/31/23 capsule,extended release omeprazole 40 mg capsule,delayed 40 mg PO 01/09/23 03/31/23 release Previous Rx's Medication Instructions Recorded fluticasone propionate 115 2 puff inhalation BID 30 days #1 ea 04/17/22 mcg-salmeterol 21 mcg/actuation HFA inhaler (Advair HFA) albuterol sulfate 1.25 mg/3 mL 2.5 mg (6 mL) inhalation Q4-6H PRN 10/17/22 solution for nebulization shortness of breath or wheezing 30 days #270 mL oxycodone 5 mg tablet 5 mg PO Q4H PRN pain after surgery 12/27/22 5 days #30 tabs cyclobenzaprine 10 mg tablet 10 mg PO TID PRN pain #14 tabs 05/17/23 oxycodone 5 mg capsule 5 mg PO Q6H PRN pain #14 caps 05/17/23 Allergies Allergy/AdvReac Type Severity Reaction Status Date / Time aspirin AdvReac Mild mild Verified 05/16/23 17:11 vaginal bleeding Review of Systems Review of Systems: Yes all other systems are reviewed and are negative PMFSH Past Medical History Medical History Seizure On beta christina at home On anticoagulant therapy SANDEE (obstructive sleep apnea) Morbid obesity with BMI of 45.0-49.9, adult Gout High cholesterol Hypertension COVID-19 Osteoarthritis of knees, bilateral History of gastric ulcer Left inguinal hernia (~2013) Lab test positive for detection of COVID-19 virus (~11/2019) Bleeding disorder Asthma Surgical History History of back surgery S/P partial hysterectomy (11/10/18) H/O umbilical hernia repair (07/25/06) Hx of endoscopy Family History Family History Father Hx of diabetes insipidus Mother No problems noted. Social History Social History Household Members: Family and Children Housing: House Alcohol intake: never Comment: seizure precautions in place Patient Tobacco Use Status: Never used Tobacco e-Cigarette/Vaping Use: Never Used Second Hand Smoke Exposure: No Advance Directives: Yes Advance Directives on File: Yes Advance Directives Date on File: 01/24/21 service: No Current occupational status: unemployed Current occupation: right handed Physical Exam Vital Signs: Vital Signs: Last Vital Signs Temp 97.6 F 05/16/23 22:30 Pulse 60 05/16/23 22:30 Resp 19 05/16/23 22:30 BP 144/81 H 05/16/23 22:30 Pulse Ox 97 05/16/23 22:30 O2 Del Method Room Air 05/16/23 22:30 BMI result Body Mass Index 42.2 Const: Other: The patient is awake and alert. She is well groomed. She looks somewhat chronically ill but not obviously acutely ill. HEENT: Other: Face symmetrical. Tongue is midline. Eyes: Other: Pupils are round equal, extraocular movements are intact, conjunctivae are clear Neck: Other: No neck swelling. Moving her neck reasonably easily. Some diffuse left-sided tenderness but no real focal tenderness. Resp: Other: Lungs are clear bilaterally. Cardio: Other: The patient has a regular rate and rhythm without murmur. Skin: Other: The skin is dry and unremarkable. Neuro: Other: The patient is awake and alert. Speech is clear. Face is symmetrical. Eye movements intact. She seems to have weakness in the left arm diffusely that seems to be more related to pain than actual weakness. Other extremities are normal. Extrem: Other: The patient has diffuse tenderness along the course of the left upper extremity from the left shoulder through the upper arm, forearm, and hand. She seemed to maximally tender at the distal upper arm just above the elbow. I do not appreciate any fluctuance or mass. I am able to put the joints through reasonably good range of motion. No definite edema. Course Course Course Narrative: This is an RME: Additional HPI, ROS, PE not included below will be deferred to primary provider. Patient is a 53-year-old female with past medical history of epilepsy, hypertension, paroxysmal atrial fibrillation on Eliquis, CVA with left hemiparesis who presents to the emergency department for evaluation of left anterior chest pain radiating into the left own. Pain has been constant for the past 3 months, but is significantly worse today without any notable injury. Intermittent headache and shortness of breath, current experiencing. Plan: Labs, EKG, CXR Medications Administered Discontinued Medications Generic Name Dose Route Start Last Admin Trade Name Freq PRN Reason Stop Dose Admin Cyclobenzaprine HCl 10 mg 05/17/23 02:11 05/17/23 02:25 Cyclobenzaprine Hcl 10 Mg Tablet PO 05/17/23 02:12 10 mg ONCE ONE Administration Oxycodone HCl 5 mg 05/16/23 23:13 05/17/23 00:02 Oxycodone Hcl Immed Release 5 Mg Tablet PO 05/16/23 23:14 5 mg ONCE ONE Administration Oxycodone HCl 5 mg 05/17/23 02:10 05/17/23 02:26 Oxycodone Hcl Immed Release 5 Mg Tablet PO 05/17/23 02:11 5 mg ONCE ONE Administration Medical Decision Making Medical Decision Making MDM Narrative: The patient is a 53-year-old who reports having left upper extremity pains over several weeks or months duration. Pains have gotten worse so that using the left arm is very uncomfortable. This is limiting her ability to manage her affairs. She takes Tylenol for pain but has no other pain medications available. Apparently she has an MRI of her C-spine ordered but it is not scheduled until about 3 weeks from now. Clinically the patient does not seem toxic. I think most of her weakness in the left arm is related to pain rather than an acute neurological weakness. I do not think she has had a stroke or has an acute spinal cord problem. X-rays of the left upper arm including the C-spine, the shoulder, and left elbow are all unremarkable. I think she needs pain control at this point and follow up with her regular doctors. I am sending prescription for cyclobenzaprine and oxycodone. 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 Lab Data 05/16/23 17:49 05/16/23 17:49 Labs: Lab Results 05/16/23 Range/Units 17:49 WBC 11.8 H (4.8-10.8) X10*3/uL RBC 4.57 (4.20-5.50) X10*6/uL Hgb 13.1 (12.0-16.0) g/dl Hct 40.2 (37.0-47.0) % MCV 88.0 (80.0-98.0) fL MCH 28.7 (27.0-33.0) pg MCHC 32.6 (31.0-35.0) g/dl RDW 13.8 (11.0-16.0) % Plt Count 430 H (160-400) X10*3/uL MPV 9.9 (9.4-12.3) fL Immature Gran % (Auto) 0.3 (0.0-0.4) % Neut % (Auto) 59.5 (45-73) % Lymph % (Auto) 32.1 (20-40) % [place] % (Auto) 5.6 (2-11) % Eos % (Auto) 2.2 (0-4) % Baso % (Auto) 0.3 (0-2) % Lymph # (Auto) 3.8 (1.2-4.9) X10*3/uL [place] # (Auto) 0.7 (0.1-1.2) X10*3/uL Eos # (Auto) 0.3 (0.0-0.4) X10*3/uL Baso # (Auto) 0.0 (0.0-0.2) X10*3/uL Abs Immat Gran (auto) 0.03 (0.00-0.03) X10*3/uL Absolute Neuts (auto) 7.0 (2.0-8.3) x10*3/uL Absolute Nucleated RBC 0.000 (0.0-0.012) X10*3/uL Nucleated RBC % (auto) 0.0 (0.0-0.2) /100WBC ESR 34 H (0-20) MM/HR PT 12.9 (11.1-13.3) SEC INR 1.1 (0.9-1.1) Sodium 143 (135-145) mmol/L Potassium 4.0 (3.3-5.1) mmol/L Chloride 108 (96-108) mmol/L Carbon Dioxide 27 (22-29) mmol/L Anion Gap 12 (12-20) BUN 23 H (9-16) mg/dL Creatinine 0.80 (0.5-1.4) mg/dL Estim Creat Clear Calc 123.9 Estimated GFR > 60 Random Glucose 91 (60-115) mg/dL Calcium 9.5 (8.4-10.2) mg/dL Magnesium 2.1 (1.6-2.6) mg/dL Total Bilirubin 0.3 (0.0-1.0) mg/dL AST 27 (5-31) U/L ALT 28 (0-31) U/L Alkaline Phosphatase 170 H (39-117) U/L Troponin I High Sens < 2.7 (<3.5-17.0) ng/L C-Reactive Protein 1.55 H (< or = 0.50) mg/dL B-Natriuretic Peptide 19 (<100) pg/mL Total Protein 8.3 H (6.5-8.0) g/dL Albumin 4.4 (3.5-5.0) g/dL COVID-19 (TALIB) Negative (Negative) COVID-19 Clin Com See Note Influenza Type A (CHANTAL) Negative (Negative) Influenza Type B (CHANTAL) Negative (Negative) Influenza A & B Note See Note Independent Interpretation I performed an independent interpretation of an: EKG Interpretation: EKG at 16:47 shows NSR at 70, no definite acute ischemic changes, no significant change from prior. Discharge Plan Discharge Clinical Impression: Arm pain, left Patient Disposition: Home, Self-Care Additional Instructions: Please continue to take 2 extra-strength acetaminophen (Tylenol) every 8 hours as needed for pain. I have also sent a prescription for a muscle relaxer, cyclobenzaprine, that you may take up to 3 times a day. In addition I have sent a prescription for oxycodone which she may use as well. Please contact your primary care doctor and your pain doctor tomorrow to continue working on your symptoms going forward. Return to the emergency room a significantly worse. Prescriptions: New cyclobenzaprine 10 mg tablet 10 mg PO TID PRN (Reason: pain) Qty: 14 0RF oxycodone 5 mg capsule 5 mg PO Q6H PRN (Reason: pain) Qty: 14 0RF Rx Instructions: Partial Fill upon patient request. No Action albuterol sulfate 1.25 mg/3 mL solution for nebulization 2.5 mg inhalation Q4-6H PRN (Reason: shortness of breath or wheezing) 30 Days Qty: 270 6RF oxycodone 5 mg tablet 5 mg PO Q4H MDD 6 PRN (Reason: pain after surgery) 5 Days Qty: 30 0RF Rx Instructions: Partial Fill upon patient request. ascorbic acid (vitamin C) 500 mg capsule, extended release 500 mg PO DAILY Rx Instructions: take with iron clonidine HCl 0.1 mg tablet 0.1 mg PO BID albuterol sulfate [ProAir HFA] 90 mcg/actuation HFA aerosol inhaler 2 puff inhalation Q6H PRN (Reason: Shortness Of Breath) cetirizine 10 mg tablet 10 mg PO BEDTIME docusate sodium [DOK] 100 mg capsule 100 mg PO BID duloxetine 30 mg capsule,delayed release(DR/EC) 30 mg PO BEDTIME montelukast 10 mg tablet 10 mg PO BEDTIME metoprolol tartrate 50 mg tablet 50 mg PO BID atorvastatin 40 mg tablet 40 mg PO BEDTIME Eliquis 5 mg tablet 5 mg PO BID Patient Comments: pt not taking currently. has procedure on 10/08/22 losartan 100 mg tablet 100 mg PO DAILY ferrous sulfate [FeroSul] 325 mg (65 mg iron) tablet 325 mg PO DAILY Rx Instructions: take with water ergocalciferol (vitamin D2) 1,250 mcg (50,000 unit) capsule 1,250 mcg PO FR@0900 furosemide 20 mg tablet 10 mg PO DAILY topiramate 100 mg tablet 100 mg PO BEDTIME Advair HFA 115-21 mcg/actuation HFA aerosol inhaler 2 puff inhalation BID 30 Days Qty: 1 6RF amlodipine 5 mg tablet 5 mg PO DAILY omeprazole 40 mg capsule,delayed release(DR/EC) 40 mg PO Referrals: Sukhi Soriano MD [Physician] - Davina Marie MD [Primary Care Provider] -
[2023-05-16 17:11] VITALS: BP 170/89; PULSE 69; RESP 18; TEMP 36.7; O2SAT 98; BMI 42.2
[2023-05-16 17:53] LABS: MANUAL DIFF FLAG NO
[2023-05-16 17:56] LABS: Basophils Percent Auto 0.3 % (0-2); Eosinophils Absolute Auto 0.3 X10*3/uL (0.0-0.4); Eosinophils Percent Auto 2.2 % (0-4); Hematocrit 40.2 % (37.0-47.0); Hemoglobin 13.1 g/dl (12.0-16.0); Imm Gran Abs Auto 0.03 X10*3/uL (0.00-0.03); Imm Gran Pct Auto 0.3 % (0.0-0.4); Lymphocytes Absolute Auto 3.8 X10*3/uL (1.2-4.9); Lymphocytes Percent Auto 32.1 % (20-40); Mean Corpuscular HGB Conc 32.6 g/dl (31.0-35.0); Mean Corpuscular Hemoglobin 28.7 pg (27.0-33.0); Mean Platelet Volume 9.9 fL (9.4-12.3); Monocytes Absolute Auto 0.7 X10*3/uL (0.1-1.2); Monocytes Percent Auto 5.6 % (2-11); Neutrophils Percent Auto 59.5 % (45-73); Platelet Count 430 X10*3/uL (160-400); Red Blood Count 4.57 X10*6/uL (4.20-5.50); Red Cell Distribution Width 13.8 % (11.0-16.0); White Blood Count 11.8 X10*3/uL (4.8-10.8)
[2023-05-16 18:10] LABS: INTERNATIONAL NORM RATIO 1.1 (0.9-1.1); Prothrombin Time 12.9 SEC (11.1-13.3)
[2023-05-16 18:16] LABS: COVID-19 Test Negative (Negative); IDNOW Serial# BCCEAD1C
[2023-05-16 18:17] LABS: Alanine Aminotransferase 28 U/L (0-31); Albumin Level 4.4 g/dL (3.5-5.0); Alkaline Phosphatase 170 U/L (39-117); Anion Gap 12 (12-20); Aspartate Amino Transferase 27 U/L (5-31); Bilirubin Total 0.3 mg/dL (0.0-1.0); Blood Urea Nitrogen 23 mg/dL (9-16); Calcium 9.5 mg/dL (8.4-10.2); Carbon Dioxide 27 mmol/L (22-29); Chloride 108 mmol/L (96-108); Creatinine Clr Calc Pharmacy 123.9; Estimated Glomerular Filt Rate > 60; Glucose Random 91 mg/dL (60-115); Magnesium 2.1 mg/dL (1.6-2.6); Sodium 143 mmol/L (135-145); Total Protein 8.3 g/dL (6.5-8.0)
[2023-05-16 18:23] LABS: B Type Natriuretic Peptide 19 pg/mL (<100)
[2023-05-16 18:25] LABS: IDNOW Serial# 08D9AD1C; Influenza A Negative (Negative); Influenza B2 Negative (Negative)
[2023-05-16 18:27] LABS: Troponin-I High Sensitivity < 2.7 ng/L (<3.5-17.0)
[2023-05-16 22:30] VITALS: BP 144/81; PULSE 60; RESP 19; TEMP 36.4; O2SAT 97
[2023-05-17] MEDS: oxyCODONE HCl Immed Release 5 MG TABLET PO ×2 (00:02→02:26)
[2023-05-17 00:27] LABS: C Reactive Protein 1.55 mg/dL (< or = 0.50)
[2023-05-17 00:51] LABS: Erythrocyte Sedimentation Rate 34 MM/HR (0-20)
--- NOTE | 2023-05-17 02:24 | PC.NURSE ---
pt is followed by Sukhi Soriano MD for pain management.
[2023-05-17] MEDS: Cyclobenzaprine HCl 10 MG TABLET PO (02:25)
== END 2023-05-17 03:10 | disposition home or self-care (01) ==
PROVIDERS: Nurse Practitioner Family; Emergency Provider Emergency Medicine; PCP Student in an Organized Health Care Education/Training Program
DX: M79.602 Pain in left arm (principal); R07.89 Other chest pain; G89.29 Other chronic pain; M54.2 Cervicalgia; R06.02 Shortness of breath; Z20.822 Contact with and (suspected) exposure to COVID-19; Z11.52 Encounter for screening for COVID-19; Z79.899 Other long term (current) drug therapy
CPT/HCPCS: 36415; 71046; 72040; 73030; 73080; 80053; 83735; 83880; 84484; 85025; 85610; 85652; 86140; 87502; 87635; 93005; 99284; 99285

== ENCOUNTER → 2023-05-16 16:45 | Outpatient (BNV) | payer MEDICAID, SELFPAY | PROVIDERS: Emergency Provider Emergency Medicine; PCP Student in an Organized Health Care Education/Training Program; Visit Provider Internal Medicine Cardiovascular Disease | DX: R94.31 Abnormal electrocardiogram [ECG] [EKG] (principal) | CPT/HCPCS: 93010 ==

== ENCOUNTER 2023-05-19 14:05 | Outpatient (AMB) | payer MEDICAID, SELFPAY ==
--- NOTE | 2023-05-19 14:06 | MHC.OFFVIS ---
Intake Intake Visit Reasons: CERVICAL XRAY FOLLOW UP/RESULTS Allergies aspirin Adverse Reaction (Mild, Verified 05/19/23 14:06) mild vaginal bleeding HPI HPI Comments History of Present Illness Details Tamanna is back in my office with complain on severe swelling in the anterior shoulder and pain in the left shoulder joint. She reports pain in the anterior shoulder joint. On the x-ray there is significant changes in the acromioclavicular joint on the left. I offered the patient acromioclavicular joint injection. She agreed to go for the procedure without sedation. I will schedule her for this procedure accordingly. Prior: Complains on cervical pain with radiation to the left upper extremity or left side of the thoracic back and even down to the left loin. She also reports associated weakness in the left upper extremity and awkwardness of left upper extremity. She is a subject of multiple interventional procedures. She recently had implantation of spinal cord stimulator to treat her lower back pain. She still reports 80% of pain improvement on spinal cord stimulator. On background of improved lower back pain the thoracic and cervical pain comes to foreground. She was a subject of x-ray of the cervical spine results of which dictated as below. [facility] Medical History Seizure On beta christina at home On anticoagulant therapy SANDEE (obstructive sleep apnea) Morbid obesity with BMI of 45.0-49.9, adult Gout High cholesterol Hypertension COVID-19 Osteoarthritis of knees, bilateral History of gastric ulcer Left inguinal hernia (~2013) Lab test positive for detection of COVID-19 virus (~11/2019) Bleeding disorder Asthma Surgical History History of back surgery S/P partial hysterectomy (11/10/18) H/O umbilical hernia repair (07/25/06) Hx of endoscopy Family History Father Hx of diabetes insipidus Mother No problems noted. Social History Household Members: Family and Children Housing: House Alcohol intake: never Comment: seizure precautions in place Patient Tobacco Use Status: Never used Tobacco e-Cigarette/Vaping Use: Never Used Second Hand Smoke Exposure: No Advance Directives Date on File: 01/24/21 service: No Current occupational status: unemployed Current occupation: right handed Review of Systems Const All systems reviewed & are unremarkable except as noted in HPI and below Assessment & Plan Assessment & Plan (1) Left shoulder pain: Code(s): M25.512 - Pain in left shoulder (2) Left elbow pain: Code(s): M25.522 - Pain in left elbow (3) DDD (degenerative disc disease), cervical: Code(s): M50.30 - Other cervical disc degeneration, unspecified cervical region (4) Cervical spondylosis: Code(s): M47.812 - Spondylosis without myelopathy or radiculopathy, cervical region (5) Radiculopathy, cervical: Code(s): M54.12 - Radiculopathy, cervical region (6) Arthritis of knee: Comment: bilateral Code(s): M17.10 - Unilateral primary osteoarthritis, unspecified knee (7) Osteoarthritis of knees, bilateral: Code(s): M17.0 - Bilateral primary osteoarthritis of knee (8) Asthma: Code(s): J45.909 - Unspecified asthma, uncomplicated (9) Osteoarthritis of knees, bilateral: Code(s): M17.0 - Bilateral primary osteoarthritis of knee (10) Arthritis of left acromioclavicular joint: Code(s): M19.012 - Primary osteoarthritis, left shoulder Plan The patient now is here with new complaints on swelling and pain on anterior surface of the left shoulder. The patient was sent for shoulder x-ray and demonstrated no bony changes. However there is changes in left acromioclavicular joint. I offered patient left acromioclavicular joint steroid injection. She agreed to go for the procedure without sedation. . Patient Instructions: I here by testify that I spent 15 minutes in conversation with this patient as well as planning her care and organizing this note. Telehealth Telehealth Location of provider rendering services: practice address Location of patient: address on file Patient Identification confirmed using: Name, : Yes Telehealth method: voice only Patient verbally consented to treatment: Yes Patient verbally consented to billing insurance company: Yes Patient informed of any privacy concerns related to visit: Yes Coding Level of Care Code Tele Est Pt Level 3 (34102) Diagnoses Left shoulder pain M25.512 Left elbow pain M25.522 DDD (degenerative disc disease), cervical M50.30 Cervical spondylosis M47.812 Radiculopathy, cervical M54.12 Arthritis of knee M17.10 Osteoarthritis of knees, bilateral M17.0 Asthma J45.909 Arthritis of left acromioclavicular joint M19.012
== END 2023-05-19 14:15 | disposition home or self-care (01) ==
LOC: HO.PMC 14:05
PROVIDERS: PCP Student in an Organized Health Care Education/Training Program; Visit Provider Anesthesiology
DX: M25.512 Pain in left shoulder (principal); M25.522 Pain in left elbow; M50.30 Other cervical disc degeneration, unspecified cervical region; M47.812 Spondylosis without myelopathy or radiculopathy, cervical region; M54.12 Radiculopathy, cervical region; M17.10 Unilateral primary osteoarthritis, unspecified knee; M17.0 Bilateral primary osteoarthritis of knee; J45.909 Unspecified asthma, uncomplicated; M19.012 Primary osteoarthritis, left shoulder
CPT/HCPCS: 99213

== ENCOUNTER → 2023-05-19 14:05 | Outpatient (BNVA) | payer MEDICAID, SELFPAY | PROVIDERS: PCP Student in an Organized Health Care Education/Training Program; Visit Provider Anesthesiology ==

== ENCOUNTER 2023-06-03 05:24 | Outpatient (REF) | payer MEDICAID, SELFPAY ==
--- NOTE | ~2023-06-03 | FL_ITS ---
EXAMINATION: XR FLUOROSCOPY WITH IMAGES CLINICAL INFORMATION: Primary osteoarthritis, bilateral shoulders. COMPARISON: None available. TECHNIQUE: Fluoroscopy Supervised By: Dr. Sukhi Soriano. Fluoroscopy Time: 0.2 minutes. Cumulative Dose: 1.11 mGy. DAP: 0.206 Gycm2. Images: 2. FINDINGS: Images demonstrate needle placement projecting over the bilateral acromioclavicular joints FL/FL guidance in treatment room IMPRESSION: Fluoroscopic guidance for pain management procedure
== END 2023-06-03 05:25 | disposition home or self-care (01) ==
LOC: CF 05:24
PROVIDERS: Visit Provider Anesthesiology
DX: M19.012 Primary osteoarthritis, left shoulder (principal); M19.011 Primary osteoarthritis, right shoulder
CPT/HCPCS: 20605; 77002; J2795; J3301; Q9967

== ENCOUNTER 2023-06-03 13:09 | Outpatient (AMB) | payer MEDICAID, SELFPAY ==
--- NOTE | 2023-06-03 13:41 | MHC.OFFVIS ---
Intake Vital Signs 06/03/23 14:21 06/03/23 14:22 Height 5 ft 10 in 5 ft 10 in Weight 293 lb 14 oz 293 lb 14 oz BMI 42.2 42.2 BP 138/80 136/86 Blood Pressure Location Lt radial Lt radial Position Sitting Sitting Respiration 18 18 Pulse 70 66 Pulse Source Pulse Oximeter Pulse Oximeter Pulse Oximetry (%) 95 99 Oxygen Delivery Method Room Air Room Air Comment pre-op post-op Intake Visit Reasons: BILATERAL ACROMIOCLAVICULAR JOINT INJECTION Allergies aspirin Adverse Reaction (Mild, Verified 06/03/23 14:23) mild vaginal bleeding PFSH Medical History Seizure On beta christina at home On anticoagulant therapy SANDEE (obstructive sleep apnea) Morbid obesity with BMI of 45.0-49.9, adult Gout High cholesterol Hypertension COVID-19 Osteoarthritis of knees, bilateral History of gastric ulcer Left inguinal hernia (~2013) Lab test positive for detection of COVID-19 virus (~11/2019) Bleeding disorder Asthma Surgical History History of back surgery S/P partial hysterectomy (11/10/18) H/O umbilical hernia repair (07/25/06) Hx of endoscopy Family History Father Hx of diabetes insipidus Mother No problems noted. Social History Household Members: Family and Children Housing: House Alcohol intake: never Comment: seizure precautions in place Patient Tobacco Use Status: Never used Tobacco e-Cigarette/Vaping Use: Never Used Second Hand Smoke Exposure: No Advance Directives Date on File: 01/24/21 service: No Current occupational status: unemployed Current occupation: right handed Physical Exam Vital Signs: Last Vital Signs Pulse 66 06/03/23 14:22 Resp 18 06/03/23 14:22 BP 136/86 06/03/23 14:22 Pulse Ox 99 06/03/23 14:22 Oxygen Delivery Method Room Air 06/03/23 14:22 BMI result Body Mass Index 42.2 Assessment & Plan Assessment & Plan (1) Arthritis of both acromioclavicular joints: Code(s): M19.011 - Primary osteoarthritis, right shoulder; M19.012 - Primary osteoarthritis, left shoulder Plan: Tamanna is very pleasant 53 years old female who came to the office today with indication to perform left acromioclavicular joint injection. She came today with complaints on pain in the projection of bilateral acromioclavicular joints. She demonstrated for positive test on impingement of bilateral acromioclavicular joints with arm elevation and adduction to the head. There was severe tenderness on palpation in bilateral acromioclavicular joints. She requested to perform bilateral acromioclavicular joint injection. The procedure was performed as below. Bilateral acromioclavicular joint injection. The patient was positioned supine on the operating table after informed consent was thoroughly explained to the patient. Time-out was performed delineating correct site and side of the procedure, name and date of of the patient, allergies, risk of fire. Bilateral acromioclavicular joints anterior neck and anterior chest were prepped with ChloraPrep and draped with sterile utility self adhesive towels. C-arm was brought over the operating field and acromioclavicular joints were sequentially shot on the screen. Medication injection was sterilely obtained comprising of ropivacaine 0.5% 3 cc and Kenalog 40 mg. Using 25 gauge 1/2 inch needle under direct x-ray C-arm view the intra-articular space was reached and injection of the solution was performed 1st on the left and then on the right. Upon completion of the injections needle was withdrawn sterile Band-Aid was applied On each side.. The patient tolerated procedure well. She was taken outside of the operating room to recovery room where she recovered uneventfully. Orders: Orders FL guidance in treatment room 06/03/23 M19.012 - Primary osteoarthritis, left shoulder Coding Level of Care Code Procedure Only Diagnoses Arthritis of both acromioclavicular joints M19.011; M19.012
[2023-06-03 14:21] VITALS: BP 138/80; PULSE 70; RESP 18; O2SAT 95; BMI 42.2
[2023-06-03 14:22] VITALS: BP 136/86; PULSE 66; RESP 18; O2SAT 99; BMI 42.2
== END 2023-06-03 14:05 | disposition home or self-care (01) ==
PROVIDERS: PCP Student in an Organized Health Care Education/Training Program; Visit Provider Anesthesiology
DX: M19.011 Primary osteoarthritis, right shoulder (principal); M19.012 Primary osteoarthritis, left shoulder
CPT/HCPCS: 20605

== ENCOUNTER 2023-06-04 11:34 | Outpatient (REF) | payer MEDICAID, SELFPAY | END 2023-06-04 11:35 | disposition home or self-care (01) | LOC: HO.MRI 11:34 | PROVIDERS: PCP Student in an Organized Health Care Education/Training Program; Visit Provider Anesthesiology | DX: Z13.89 Encounter for screening for other disorder (principal) ==

== ENCOUNTER 2023-06-30 10:14 | Outpatient (AMB) | payer MEDICAID, SELFPAY ==
--- NOTE | 2023-06-30 10:37 | MHC.OFFVIS ---
Intake Vital Signs 06/30/23 10:52 Height 5 ft 10 in Weight 293 lb BMI 42.0 BP 125/91 H Blood Pressure Location Lt brachial Position Sitting Respiration 16 Pulse 62 Pulse Source Pulse Oximeter Pulse Oximetry (%) 96 Oxygen Delivery Method Room Air Intake Visit Reasons: LEFT ACROMIOCLAVICULAR JOINT INJECTION/06/03/23 Intake Note: Patient comes in for post-op appointment. Allergies aspirin Adverse Reaction (Mild, Verified 06/30/23 10:53) mild vaginal bleeding HPI HPI Comments History of Present Illness Details Tamanna is back in my office after bilateral acromioclavicular joint injection which was performed on 06/03/2023.. She reports overall 50% of pain improvement in the shoulders. She reports slightly improved mobility of the left upper extremity. However he continues to complain on swelling and pain in bilateral upper shoulders. She is interested in neuromodulation. She is asking me whether she can try the same stimulation in her neck to help her pain in his shoulders as she did for her back. She needs to go for psychological evaluation again to do a trial of Nevro SCS. After the approval I do not mind to perform a trial of cervical SCS Nevro for this patient. If she would like results of cervical Nevro SCS I will implant the battery on contralateral side in the patient's left loin area. Prior: Complains on cervical pain with radiation to the left upper extremity or left side of the thoracic back and even down to the left loin. She also reports associated weakness in the left upper extremity and awkwardness of left upper extremity. She is a subject of multiple interventional procedures. She recently had implantation of spinal cord stimulator to treat her lower back pain. She still reports 80% of pain improvement on spinal cord stimulator. On background of improved lower back pain the thoracic and cervical pain comes to foreground. She was a subject of x-ray of the cervical spine results of which dictated as below. [facility] Medical History Seizure On beta christina at home On anticoagulant therapy SANDEE (obstructive sleep apnea) Morbid obesity with BMI of 45.0-49.9, adult Gout High cholesterol Hypertension COVID-19 Osteoarthritis of knees, bilateral History of gastric ulcer Left inguinal hernia (~2013) Lab test positive for detection of COVID-19 virus (~11/2019) Bleeding disorder Asthma Surgical History History of back surgery S/P partial hysterectomy (11/10/18) H/O umbilical hernia repair (07/25/06) Hx of endoscopy Family History Father Hx of diabetes insipidus Mother No problems noted. Social History Household Members: Family and Children Housing: House Alcohol intake: never Comment: seizure precautions in place Patient Tobacco Use Status: Never used Tobacco e-Cigarette/Vaping Use: Never Used Second Hand Smoke Exposure: No Advance Directives Date on File: 01/24/21 service: No Current occupational status: unemployed Current occupation: right handed Review of Systems Const All systems reviewed & are unremarkable except as noted in HPI and below Physical Exam Vital Signs: Last Vital Signs Pulse 62 06/30/23 10:52 Resp 16 06/30/23 10:52 BP 125/91 H 06/30/23 10:52 Pulse Ox 96 06/30/23 10:52 Oxygen Delivery Method Room Air 06/30/23 10:52 BMI result Body Mass Index 42.0 General: Appears afebrile. Alert and oriented. Mood and affect appropriate. Follows and participates in conversation appropriately. Respiratory effort is unlabored. No cough. Able to transition from sit to stand unassisted. Ambulates with bilaterally normal heel strike and toe off. Neck Other: Positive Spurling test on the left, Lhermitte test, Valsalva positive as well. Neck: Yes normal visual inspection, No full ROM, Yes no lymphadenopathy, Yes no meningeal signs, No supple, No anterior neck swelling, Yes no JVD and Yes prominent dorsocervical fat pad Resp Effort & Inspection: abnormal respiratory effort, not able to speak in complete sentences, abnormal respiratory pattern, audible wheezes, no cough, grunting and labored Cardio Jugular venous distension: no JVD Back/Spine/Pelvis Cervical Spine: No Lhermitte's sign positive, cervical muscular tenderness, pain with cervical ROM and No Cervical spine tenderness Neuro General: no meningeal signs Extrem General: Yes capillary refill normal, Yes no clubbing, cyanosis or edema and Yes no calf tenderness Left upper extremity: shoulder/upper arm Details: inspection abnormal, tenderness (anterior and posterior aspects) Location: over the biceps tendon and normal ROM; no swelling, no ecchymosis, no crepitus and no unsual warmth Assessment & Plan Assessment & Plan (1) Arthritis of both acromioclavicular joints: Code(s): M19.011 - Primary osteoarthritis, right shoulder; M19.012 - Primary osteoarthritis, left shoulder (2) Left shoulder pain: Code(s): M25.512 - Pain in left shoulder (3) Left elbow pain: Code(s): M25.522 - Pain in left elbow (4) DDD (degenerative disc disease), cervical: Code(s): M50.30 - Other cervical disc degeneration, unspecified cervical region (5) Cervical spondylosis: Code(s): M47.812 - Spondylosis without myelopathy or radiculopathy, cervical region (6) Radiculopathy, cervical: Code(s): M54.12 - Radiculopathy, cervical region (7) Arthritis of knee: Comment: bilateral Code(s): M17.10 - Unilateral primary osteoarthritis, unspecified knee (8) Osteoarthritis of knees, bilateral: Code(s): M17.0 - Bilateral primary osteoarthritis of knee (9) Asthma: Code(s): J45.909 - Unspecified asthma, uncomplicated (10) Osteoarthritis of knees, bilateral: Code(s): M17.0 - Bilateral primary osteoarthritis of knee Plan The patient in received some improvement in bilateral shoulder pain with acromioclavicular joint injection. He is asking me a question whether or not spinal cord stimulator can be given to her to treat the bilateral upper shoulder pains. I informed her that she needs to go for psychological evaluation and then for the trial again for the cervical placed SCS to see if the SCS positioned in the cervical spine will alleviate pain in bilateral upper shoulders. . Coding Level of Care Code Est Pt Level 3 (97722) Diagnoses Arthritis of both acromioclavicular joints M19.011; M19.012 Left shoulder pain M25.512 Left elbow pain M25.522 DDD (degenerative disc disease), cervical M50.30 Cervical spondylosis M47.812 Radiculopathy, cervical M54.12 Arthritis of knee M17.10 Osteoarthritis of knees, bilateral M17.0 Asthma J45.903
[2023-06-30 10:52] VITALS: BP 125/91; PULSE 62; RESP 16; O2SAT 96; BMI 42.0
== END 2023-06-30 11:19 | disposition home or self-care (01) ==
PROVIDERS: PCP Student in an Organized Health Care Education/Training Program; Referring Provider Student in an Organized Health Care Education/Training Program; Visit Provider Anesthesiology
DX: M19.011 Primary osteoarthritis, right shoulder (principal); M19.012 Primary osteoarthritis, left shoulder; M25.512 Pain in left shoulder; M25.522 Pain in left elbow; M50.30 Other cervical disc degeneration, unspecified cervical region; M47.812 Spondylosis without myelopathy or radiculopathy, cervical region; M54.12 Radiculopathy, cervical region; M17.10 Unilateral primary osteoarthritis, unspecified knee; M17.0 Bilateral primary osteoarthritis of knee; J45.909 Unspecified asthma, uncomplicated
CPT/HCPCS: 99213

== ENCOUNTER → 2023-06-30 10:14 | Outpatient (BNVA) | payer MEDICAID, SELFPAY | PROVIDERS: PCP Student in an Organized Health Care Education/Training Program; Visit Provider Anesthesiology | DX: M19.011 Primary osteoarthritis, right shoulder (principal); M19.012 Primary osteoarthritis, left shoulder; M25.512 Pain in left shoulder; M25.522 Pain in left elbow; M50.30 Other cervical disc degeneration, unspecified cervical region; M47.812 Spondylosis without myelopathy or radiculopathy, cervical region; M54.12 Radiculopathy, cervical region; M17.10 Unilateral primary osteoarthritis, unspecified knee; M17.0 Bilateral primary osteoarthritis of knee; J45.909 Unspecified asthma, uncomplicated | CPT/HCPCS: 99212 ==

== ENCOUNTER 2023-07-04 09:34 | Outpatient (REF) | payer MEDICAID, SELFPAY ==
--- NOTE | ~2023-07-04 | XR_ITS ---
EXAMINATION: XR CHEST CLINICAL INFORMATION: Cough and shortness of breath x4 weeks. COMPARISON: 05/16/2023 TECHNIQUE: 2 views of the chest were obtained. FINDINGS: The lungs are well expanded. No focal consolidation. No pleural effusion. Cardiac silhouette is unchanged. XR/XR chest 2V IMPRESSION: No acute abnormality.
== END 2023-07-04 09:35 | disposition home or self-care (01) ==
LOC: HO.HHCX 09:34
PROVIDERS: Visit Provider Student in an Organized Health Care Education/Training Program
DX: R05.9 Cough, unspecified (principal)
CPT/HCPCS: 71046

== ENCOUNTER 2023-08-26 09:42 | Outpatient (AMB) | payer MEDICAID, SELFPAY ==
--- NOTE | 2023-08-26 09:51 | A.OFFVIS_ITS ---
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 Lots of headaches and wants some medicine to control seizures. Allergies aspirin Adverse Reaction (Mild, Verified 08/26/23 09:58) mild vaginal bleeding HPI HPI Comments History of Present Illness Details 53 y/o female patient presents for new i n-person visit for evaluation of seizure. Pt is not a good historian, keep saying I don't know. Pt reports hx of seizure, she does not know when it started, but it has worsened with Covid. She was told that she had seizure in the past, but not remember exact her history. She did not know that she had seizure until she has Covid. 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 She is on eliquis and atorvastin now. She does not know what medication she had for seizure in the past. Pt states that the last seizure was last week, she was sleeping and her daughter witnessed her eyes rolling back, stiffened and she was shaking. She woke up exhausted with muscle ache. Denies incontinent episodes. Has hx of sleep apnea, but not using CPAP, she returned CPAP. Pt also reports headache, starting back of her head, having blurry vision, light sensitivity. She may have the headache three times a week. She uses Tylenol 500 mg BID, it reduce the intensity. Resting in the dark room mostly helpful to relieve the headache. Complains on cervical pain with radiation to the left upper extremity, she is having injection on her neck and shoulder, and plans to have spinal cord stimula tion. [facility] Medical History (Updated 09/06/23 @ 22:37 by Nemesio Pruitt CNP) Seizure On beta christina at home On anticoagulant therapy SANDEE (obstructive sleep apnea) Morbid obesity with BMI of 45.0-49.9, adult Gout High cholesterol Hypertension COVID-19 Osteoarthritis of knees, bilateral History of gastric ulcer Left inguinal hernia (~2013) Lab test positive for detection of COVID-19 virus (~11/2019) Bleeding disorder Asthma Surgical History History of back surgery S/P partial hysterectomy (11/10/18) H/O umbilical hernia repair (07/25/06) Hx of endoscopy Family History Father Hx of diabetes insipidus Mother No problems noted. Social History Household Members: Family and Children Housing: House Alcohol intake: never Comment: seizure precautions in place Patient Tobacco Use Status: Never used Tobacco e-Cigarette/Vaping Use: Never Used Second Hand Smoke Exposure: No Advance Directives Date on File: 01/24/21 service: No Current occupational status: unemployed Current occupation: right handed Review of Systems Const All systems reviewed & are unremarkable except as noted in HPI and below Physical Exam Vital Signs: Last Vital Signs Pulse 62 08/26/23 09:59 BP 132/80 08/26/23 09:59 Pulse Ox 97 08/26/23 09:59 Oxygen Delivery Method Room Air 08/26/23 09:59 BMI result Body Mass Index 44.8 Const Other: left upper and lower extremities weakness. General: cooperative Nutritional Appearance: obese Orientation/consciousness: patient oriented x3 Neck Other: limited ROM of neck due to neck and shoulder pain. Neck: Yes supple Resp Effort & Inspection: normal respiratory effort and able to speak in complete sentences Auscultation: wheezes Neuro General: patient oriented x3 and gait normal Cranial nerves: Yes CN's II-XII intact bilaterally Cognition (Neuro): normal cognition Gait exam (Neuro): Normal gait present Psych Appearance: grossly normal Speech and movement: Normal speech and movement present Affect: normal affect Attitude: cooperative Assessment & Plan Assessment & Plan (1) Seizure: Code(s): R56.9 - Unspecified convulsions (2) Headache: Code(s): R51.9 - Headache, unspecified Plan Pt was evaluated and discussed the plan of care with Dr. Kothari. Advised patient to undergo EEG for seizure evaluation. Advised patient to try gabapentin 300 mg BID for headache and seizure prevention. Medications: New gabapentin 300 mg PO BID 60 caps 2RF 30 days Coding Level of Care Code New Pt Level 4 (21006) Diagnoses Seizure R56.9 Headache R51.9
[2023-08-26 09:59] VITALS: BP 132/80; PULSE 62; O2SAT 97; BMI 44.8
== END 2023-08-26 10:45 | disposition home or self-care (01) ==
PROVIDERS: PCP Student in an Organized Health Care Education/Training Program; Visit Provider Nurse Practitioner Family
DX: R56.9 Unspecified convulsions (principal); R51.9 Headache, unspecified
CPT/HCPCS: 99204

== ENCOUNTER → 2023-08-26 09:42 | Outpatient (BNVA) | payer MEDICAID, SELFPAY | PROVIDERS: PCP Student in an Organized Health Care Education/Training Program; Visit Provider Nurse Practitioner Family | DX: R56.9 Unspecified convulsions (principal); R51.9 Headache, unspecified | CPT/HCPCS: 99212 ==

== ENCOUNTER 2023-09-19 08:14 | Day surgery (SDC) | payer MEDICAID, SELFPAY ==
--- NOTE | ~2023-09-19 | FL_ITS ---
EXAMINATION: XR FLUOROSCOPY WITH IMAGES CLINICAL INFORMATION: Spinal cord stimulation trial. COMPARISON: Cervical spine radiographs dated 05/17/2023. TECHNIQUE: Fluoroscopy Supervised By: Dr. Sukhi Soriano. Fluoroscopy Time: 7 minutes and 28.4 seconds. Cumulative Dose: 196.31 mGy. DAP: 53.980 Gycm2. Images: 4. FINDINGS: The submitted images show a spinal stimulator device with leads overlapping the cervical and upper thoracic regions. FL/FL guidance in OR IMPRESSION: Intraoperative fluoroscopic guidance is provided during spinal cord stimulation trial. Please see the patient's Operative Report for full procedural details.
[2023-09-19 08:36] VITALS: BP 129/93; PULSE 70; RESP 18; TEMP 36.4; O2SAT 94; BMI 44.3
--- NOTE | 2023-09-19 10:12 | MHC.SHP ---
Pre-Procedural Eval Section A - 24 Hr Update-Section A only Date of Service: 09/19/23 The patient is an INPATIENT: No Changes since office visit: Yes Patient answered all questions The patient has been examined within 24 hours of the surgical procedure. The History & Physical has been completed within 30 days and I have reviewed it.: No Section B - Complete if H&P > 30 days Chief Complaint: Radiculopathy, cervical region Details of Present Illness: Cervicalgia cervical chronic pain syndrome Relevant Family History (Specify if Yes): No Relevant Social History: None Present Medications: see Short Stay Collaborative assessment Medical History: No relevant PMH History of Previous Operations: No relevant previous surgery Allergies: Allergies Allergy/AdvReac Type Severity Reaction Status Date / Time aspirin AdvReac Mild mild Verified 08/26/23 09:58 vaginal bleeding Review of Systems Sugical H&P ROS: Negative: Hem-Onc, Allergic/Immunologic, Genitourinary, Integumentary, Endocrine and Eyes/Ears/Nose/Throat and Yes, Specify: Constitution (Morbid obesity), Cardiovascular (Hypertension benign), Respiratory (SANDEE), Neurological (Seizure disorder), Psychiatric (Depression), Gastrointestinal (Dysphagia) and Musculoskeletal (Spondylosis, disc degeneration,) Exam Surgical H&P Exam: Normal: HEENT, Normal: Heart, Normal: Lungs, Normal: Extremities, Normal: Skin and Normal: Neurological and Significant Findings: Abdomen (Enlarged 2 to i/a & s/q fat) Plan I have reviewed the history and physical and performed a pertinent physical examination on my patient. No changes have occurred unless specified. Time Spent With Patient Time: Total time managing care of this patient today ____ minutes.
--- NOTE | 2023-09-19 10:17 | HO.ANESPROP2 ---
[facility] Active Problems Active Problems: All Active Problems Seizure (Acute) Arthritis of both acromioclavicular joints (Acute) Arthritis of left acromioclavicular joint (Acute) Radiculopathy, cervical (Acute) Cervical spondylosis (Acute) DDD (degenerative disc disease), cervical (Acute) Left elbow pain (Acute) Left shoulder pain (Acute) Status post insertion of spinal cord stimulator (Acute) SANDEE (obstructive sleep apnea) (Acute) Trigger finger, left ring finger (Acute) Cluneal neuropathy (Acute) Mononeuropathy, unspecified (Acute) Osteoarthritis, hand (Acute) HTN (hypertension), benign (Acute) Arthritis of knee (Acute) Depression (Acute) Anemia (Acute) GERD with esophagitis (Acute) Dysphagia, pharyngoesophageal phase (Acute) Abdominal bloating (Acute) Spondylosis of lumbar region without myelopathy or radiculopathy (Acute) Carotid stenosis, bilateral (Acute) Headache (Acute) Bilateral knee pain (Acute) Chronic pain syndrome (Acute) Osteoarthritis of knees, bilateral (Acute) Spondylosis of lumbar joint (Acute) Asthma (Acute) Environmental allergies (Acute) Osteoarthritis of knees, bilateral (Acute) Past Medical History Medical History (Updated 09/06/23 @ 22:37 by Nemesio Pruitt CNP) Seizure On beta christina at home On anticoagulant therapy SANDEE (obstructive sleep apnea) Morbid obesity with BMI of 45.0-49.9, adult Gout High cholesterol Hypertension COVID-19 Osteoarthritis of knees, bilateral History of gastric ulcer Left inguinal hernia (~2013) Lab test positive for detection of COVID-19 virus (~11/2019) Bleeding disorder Asthma Family History Family History Father Hx of diabetes insipidus Mother No problems noted. Family history of problems with anesthesia: No Surgical History Surgical History History of back surgery S/P partial hysterectomy (11/10/18) H/O umbilical hernia repair (07/25/06) Hx of endoscopy History of Problems with Anesthesia: No Social History Social History Household Members: Family and Children Housing: House Alcohol intake: never Comment: seizure precautions in place Patient Tobacco Use Status: Never used Tobacco e-Cigarette/Vaping Use: Never Used Second Hand Smoke Exposure: No Use of substances other than those prescribed or required for medical reasons: No Are you DNR?: No Advance Directives: No Advance Directives Information Provided: Yes Advance Directives on File: No Advance Directives Date on File: 01/24/21 service: No Current occupational status: unemployed Current occupation: right handed Meds Allergies Allergy/AdvReac Type Severity Reaction Status Date / Time aspirin AdvReac Mild mild Verified 08/26/23 09:58 vaginal bleeding Home Medications ?Medication ?Instructions ?Recorded ?Confirmed ?Last Taken ?Type albuterol sulfate 90 mcg/actuation 2 puff inhalation Q6H PRN 04/27/20 09/19/23 08/01/22 History aerosol inhaler (ProAir HFA) Shortness Of Breath cetirizine 10 mg tablet 10 mg PO BEDTIME 04/27/20 09/19/23 10/04/22 History docusate sodium 100 mg capsule 100 mg PO BID 04/27/20 09/19/23 12/27/22 History (DOK) duloxetine 30 mg capsule,delayed 30 mg PO BEDTIME 04/27/20 09/19/23 10/04/22 History release metoprolol tartrate 50 mg tablet 50 mg PO BID 04/27/20 09/19/23 12/27/22 History montelukast 10 mg tablet 10 mg PO BEDTIME 04/27/20 09/19/23 10/04/22 History clonidine HCl 0.1 mg tablet 0.1 mg PO BID 06/05/20 09/19/23 12/27/22 History apixaban 5 mg tablet (Eliquis) 5 mg PO BID 06/28/20 09/19/23 12/24/22 History atorvastatin 40 mg tablet 40 mg PO BEDTIME 06/28/20 09/19/23 12/27/22 History losartan 100 mg tablet 100 mg PO DAILY 06/28/20 09/19/23 12/27/22 History furosemide 20 mg tablet 10 mg PO DAILY 12/25/21 09/19/23 12/27/22 History topiramate 100 mg tablet 100 mg PO BEDTIME 12/25/21 09/19/23 10/04/22 History ergocalciferol (vitamin D2) 1,250 1,250 mcg PO FR@0900 01/08/22 09/19/23 12/27/22 History mcg (50,000 unit) capsule ferrous sulfate 325 mg (65 mg 325 mg PO DAILY 01/08/22 09/19/23 10/05/22 09:00 History iron) tablet (FeroSul) amlodipine 5 mg tablet 5 mg PO DAILY 09/24/22 09/19/23 12/27/22 History ascorbic acid (vitamin C) 500 mg 500 mg PO DAILY 10/06/22 09/19/23 10/05/22 09:00 History capsule,extended release omeprazole 40 mg capsule,delayed 40 mg PO DAILY 01/09/23 09/19/23 Unknown History release Exam Height,Weight and Vital Signs: Height 5 ft 9 in Weight 136.078 kg Last Vital Signs Temp 97.6 F 09/19/23 08:36 Pulse 70 09/19/23 08:36 Resp 18 09/19/23 08:36 BP 129/93 H 09/19/23 08:36 Pulse Ox 94 09/19/23 08:36 O2 Del Method Room Air 09/19/23 08:36 Airway Mallampati Class: IV TM Dist: <=3cm Neck ROM: Limited Loose/Missing/Broken Teeth: No Heart: rrr Lungs: clear but distant Assessment and Plan Final Anesthetic Review Family History of Problems with Anesthesia: No History of Problems with Anesthesia: No NPO: Yes ASA Class: IV Final Preanesthetic Review: No Changes in Pt Med Stat, Meds/Allgs Chart Reviewed, Consent Obtained/Reviewed and Anes Risks/Benef Reviewed Patient Risk: High Procedure Risk: Intermediate Anesthetic Plan Anesthetic Plan: GA Disposition: Standard PACU
--- NOTE | 2023-09-19 13:03 | P.BOP_ITS ---
Brief Operative Note Date of Service: 09/19/23 Pre-op diagnosis: Spondylosis cervical spine, chronic pain syndrome. Cervicalgia. Post-op diagnosis: same Procedure: Trial of Nevro SCS Implants: None per Surgeon: Sukhi Soriano MD Anesthesia: GETA Was an Shaft Repairer used for this Procedure?: No Estimated blood loss (mL): 3 Condition: stable Disposition: PACU
[2023-09-19 13:06] VITALS: BP 156/101; PULSE 87; RESP 16; TEMP 36.6; O2SAT 100
--- NOTE | 2023-09-19 13:08 | W.PM.OPN ---
Operative Note Operative Note Date of Service: 09/19/23 Narrative: Tamanna is very pleasant 53 years old female who came to the operating room for trial of spinal cord stimulator Nevro for the treatment of chronic pain syndrome cervicalgia, spondylosis cervical spine chronic shoulder pain.. ?Preoperatively patient received ? cefazolin 3 g approximately 20 minutes before the procedure. After obtaining informed consent the patient was brought to the operating room, she was positioned supine on the stretcher, Citizen [place] [employer] monitors were applied and general endotracheal anesthesia was induced. After that patient was transferred prone on operating table, all pressure points were protected. ?Time-out was performed delineating correct site, side, the nature of the procedure, patient's allergy, preoperative antibiotic if needed.? All operating room staff was participating in OR time-out procedure. Patient's entire back was prepped with Chloraprep twice and draped with full body fenestrated laparoscopy drape.? Sterilely draped C-arm was brought over operating field and square picture of the T4-T5 T6 and T7 vertebrae? were demonstrated on the screen.? ?Attention FIRST? was concentrated on the T5-T6 epidural interspace. Right pedicle of the T7 was located on the screen and the projection of the pedicle was injected with 5 cc of lidocaine 2% mixture with ropivacaine 0.5% mixture 1-1.After that 11 blade was used to make a key on the skin.? 10 cm 14 gauge? introducer epidural needle was inserted through the key advanced to epidural space at T5-T6 level. ? The advancement of the needle was performed on anterior posterior and lateral views.?Loss of resistance to air? technique were used to locate epidural space,epidural lead was inserted through the needle and? advanced to the projection of the top of C2 vertebral body strictly on the midline. Lateral view demonstrated posterior position of the lead in the cervical posterior epidural space.. ? .? After that? the location of the projection of the LEFT pedicle center of the T7 vertebras was found on the skin using C-arm.? This location was injected with mixture of lidocaine 2% and Marcaine 0.5% 5 cc.? After that 11 blade was used to make a key on the skin.? 10 cm 14 gauge introducer epidural needle was inserted through the key and advanced to T5-T6 epidural interspace.? The advancement of the needle was performed on anterior posterior and lateral views.? There was difficulty advancing this needle to were the epidural space at this level because of the left needle was getting into contact with the previously positioned right needle and it was difficult to advance and get appropriate response of the epidural space. The decision was made to reach epidural space at T4-T5 level. Right pedicle of the T6 was located on the screen and the projection of the pedicle was injected with 5 cc of lidocaine 2% mixture with ropivacaine 0.5% mixture 1-1.After that 11 blade was used to make a key on the skin.? 10 cm 14 gauge? introducer epidural needle was inserted through the key advanced to epidural space at T4-T5 level. ? The advancement of the needle was performed on anterior posterior and lateral views.?Loss of resistance to air? technique were used to locate epidural space,epidural lead was inserted through the needle and? advanced to the projection of the bottom of the C2 vertebral body strictly on the midline. Lateral view demonstrated posterior position of the lead in the cervical posterior epidural space.. Impedance was checked? and it was found to be satisfactory.? Posterior lead placement was verified by lateral x-ray. ?The needles were withdrawn, the stylette wires were removed from the epidural leads.? The anchoring devices were dislodged on the leads and advanced to the level of the skin.? The anchoring devices were sutured with two 0-0 ?Silk sutures per each anchor to the skin of the patient. The central fixation screw of each anchor was rotated until three clicks were heard. The leads were connected to testing device.? Sterile dressing was applied to the patient's back.? The testing device was also taped to the patient's back.? the patient tolerated procedure well she was awaken and taken outside of the operating room to recovery room.
[2023-09-19 13:11] VITALS: BP 130/82; PULSE 84; RESP 16; O2SAT 100
[2023-09-19 13:16] VITALS: BP 128/79; PULSE 82; RESP 16; O2SAT 100
[2023-09-19 13:21] VITALS: BP 122/79; PULSE 84; RESP 16; TEMP 36.6; O2SAT 97
[2023-09-19 13:35] VITALS: BP 130/85; PULSE 80; RESP 20; TEMP 36.2; O2SAT 94
[2023-09-19] MEDS: Acetaminophen 325 MG TABLET 650 MG PO (13:53)
== END 2023-09-19 14:18 | disposition home or self-care (01) ==
PROVIDERS: PCP Student in an Organized Health Care Education/Training Program; Visit Provider Anesthesiology
PROC: (CPT 63650; principal; 2023-09-19 11:00)
DX: M54.12 Radiculopathy, cervical region (principal); G89.4 Chronic pain syndrome; M47.812 Spondylosis without myelopathy or radiculopathy, cervical region; M50.30 Other cervical disc degeneration, unspecified cervical region; M25.512 Pain in left shoulder; M19.012 Primary osteoarthritis, left shoulder; M25.511 Pain in right shoulder; M19.011 Primary osteoarthritis, right shoulder; R53.1 Weakness; I10 Essential (primary) hypertension; E78.00 Pure hypercholesterolemia, unspecified; J45.909 Unspecified asthma, uncomplicated; G47.33 Obstructive sleep apnea (adult) (pediatric); R56.9 Unspecified convulsions; M10.9 Gout, unspecified; E66.01 Morbid (severe) obesity due to excess calories; Z68.41 Body mass index [BMI] 40.0-44.9, adult; Z79.01 Long term (current) use of anticoagulants; Z79.899 Other long term (current) drug therapy; Z88.8 Allergy status to other drugs, medicaments and biological substances; Z56.0 Unemployment, unspecified
CPT/HCPCS: 63650 ×2; C1713; C1897; J0690; J2250; J2371; J2704; J2795; J3010

== ENCOUNTER → 2023-09-19 08:14 | Outpatient (BNV) | payer MEDICAID, SELFPAY | PROVIDERS: PCP Student in an Organized Health Care Education/Training Program; Visit Provider Anesthesiology | DX: M54.12 Radiculopathy, cervical region (principal) | CPT/HCPCS: 63650 ==

== ENCOUNTER 2023-09-24 10:03 | Outpatient (REF) | payer MEDICAID, SELFPAY ==
[2023-09-24 15:02] LABS: Alanine Aminotransferase 34 U/L (0-31); Albumin Level 4.2 g/dL (3.5-5.0); Alkaline Phosphatase 184 U/L (39-117); Anion Gap 13 (12-20); Aspartate Amino Transferase 26 U/L (5-31); Bilirubin Direct 0.2 mg/dL (0.0-0.5); Bilirubin Total 0.4 mg/dL (0.0-1.0); Blood Urea Nitrogen 19 mg/dL (9-16); Calcium 9.3 mg/dL (8.4-10.2); Carbon Dioxide 27 mmol/L (22-29); Chloride 104 mmol/L (96-108); Cholesterol 139 mg/dL (<200); Estimated Glomerular Filt Rate > 60; Glucose Random 144 mg/dL (60-115); HDL Cholesterol 43 mg/dL (>40); LDL Cholesterol Calculated 60 mg/dL (<100); Potassium 3.9 mmol/L (3.3-5.1); Sodium 140 mmol/L (135-145); Total Protein 8.3 g/dL (6.5-8.0); Triglycerides 183 mg/dL (<150)
== END 2023-09-24 10:04 | disposition home or self-care (01) ==
LOC: HO.CHCLDS 10:03
PROVIDERS: Visit Provider Student in an Organized Health Care Education/Training Program
DX: R56.9 Unspecified convulsions (principal); I48.11 Longstanding persistent atrial fibrillation
CPT/HCPCS: 36415; 80048; 80061; 80076

== ENCOUNTER 2023-09-25 09:53 | Outpatient (AMB) | payer MEDICAID, SELFPAY ==
--- NOTE | 2023-09-25 10:07 | MHC.OFFVIS ---
Intake Vital Signs 09/25/23 10:11 Height 5 ft 9 in Weight 300 lb BMI 44.3 BP 142/70 H Blood Pressure Location Lt brachial Position Sitting Respiration 16 Pulse 77 Pulse Source Pulse Oximeter Pulse Oximetry (%) 94 Oxygen Delivery Method Room Air Intake Visit Reasons: S/p Nevro SCS Trial 09/19/23 Intake Note: Patient comes in for post-op appointment. Reports pain 0/10. Allergies aspirin Adverse Reaction (Mild, Verified 09/25/23 10:10) mild vaginal bleeding HPI HPI Comments History of Present Illness Details Tamanna is back in my office after trial of spinal cord stimulator Nevro SCS. She reports absence of pain today. 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 She wants me to proceed with implantation of the permanent device Nevro SCS. This will be 2nd Nevro SCS device and we will positioned probably in the loin area. The dressing holding the trial leads to the skin were removed and the area was prepped with ChloraPrep. The sutures holding the trailing anchoring devices were severed using 11 blade. After that patient was instructed to take a slow deep breaths and epidural leads were removed. The tip was intact. Sterile dressing was applied using bacitracin and Tegaderm. Prior: bilateral acromioclavicular joint injection which was performed on 06/03/2023.. She reports overall 50% of pain improvement in the shoulders. She reports slightly improved mobility of the left upper extremity. However he continues to complain on swelling and pain in bilateral upper shoulders. She is interested in neuromodulation. She is asking me whether she can try the same stimulation in her neck to help her pain in his shoulders as she did for her back. Complains on cervical pain with radiation to the left upper extremity or left side of the thoracic back and even down to the left loin. She also reports associated weakness in the left upper extremity and awkwardness of left upper extremity. She is a subject of multiple interventional procedures. She recently had implantation of spinal cord stimulator to treat her lower back pain. She still reports 80% of pain improvement on spinal cord stimulator. On background of improved lower back pain the thoracic and cervical pain comes to foreground. She was a subject of x-ray of the cervical spine results of which dictated as below. [facility] Medical History (Updated 09/06/23 @ 22:37 by Nemesio Pruitt CNP) Seizure On beta christina at home On anticoagulant therapy SANDEE (obstructive sleep apnea) Morbid obesity with BMI of 45.0-49.9, adult Gout High cholesterol Hypertension COVID-19 Osteoarthritis of knees, bilateral History of gastric ulcer Left inguinal hernia (~2013) Lab test positive for detection of COVID-19 virus (~11/2019) Bleeding disorder Asthma Surgical History History of back surgery S/P partial hysterectomy (11/10/18) H/O umbilical hernia repair (07/25/06) Hx of endoscopy Family History Father Hx of diabetes insipidus Mother No problems noted. Social History Household Members: Family and Children Housing: House Alcohol intake: never Comment: seizure precautions in place Patient Tobacco Use Status: Never used Tobacco e-Cigarette/Vaping Use: Never Used Second Hand Smoke Exposure: No Advance Directives Date on File: 01/24/21 service: No Current occupational status: unemployed Current occupation: right handed Review of Systems Const All systems reviewed & are unremarkable except as noted in HPI and below Physical Exam Vital Signs: Last Vital Signs Pulse 77 09/25/23 10:11 Resp 16 09/25/23 10:11 BP 142/70 H 09/25/23 10:11 Pulse Ox 94 09/25/23 10:11 Oxygen Delivery Method Room Air 09/25/23 10:11 BMI result Body Mass Index 44.3 General: Appears afebrile. Alert and oriented. Mood and affect appropriate. Follows and participates in conversation appropriately. Respiratory effort is unlabored. No cough. Able to transition from sit to stand unassisted. Ambulates with bilaterally normal heel strike and toe off. Const Other: left upper and lower extremities weakness. General: cooperative Nutritional Appearance: obese Orientation/consciousness: patient oriented x3 Neck Other: limited ROM of neck due to neck and shoulder pain. Neck: Yes normal visual inspection, No full ROM, Yes no lymphadenopathy, Yes no meningeal signs, No supple, No anterior neck swelling, Yes no JVD and Yes prominent dorsocervical fat pad Resp Effort & Inspection: normal respiratory effort and able to speak in complete sentences Cardio Jugular venous distension: no JVD Back/Spine/Pelvis Cervical Spine: No Lhermitte's sign positive, cervical muscular tenderness, pain with cervical ROM and No Cervical spine tenderness Neuro General: patient oriented x3, gait normal and no meningeal signs Extrem General: Yes capillary refill normal, Yes no clubbing, cyanosis or edema and Yes no calf tenderness Left upper extremity: shoulder/upper arm Details: inspection abnormal, tenderness (anterior and posterior aspects) Location: over the biceps tendon and normal ROM; no swelling, no ecchymosis, no crepitus and no unsual warmth Psych Appearance: grossly normal Speech and movement: Normal speech and movement present Affect: normal affect Attitude: cooperative Results Reviewed Results Reviewed: X-ray cervical spine: There is mild straightening of cervical lordosis. There is loss of C4-C5, C5-C6 and C6-C7 disc heights with ventral spondylosis at the C4-C5 and C5-C6 disc levels. No visible acute fracture, dislocation or subluxation seen. The prevertebral soft tissues are normal. XR/XR cervical spine 3V IMPRESSION: Degenerative disc changes C4-C5, C5-C6 and C6-C7 disc levels with ventral spondylosis. No visible acute fracture or dislocation seen. Assessment & Plan Assessment & Plan (1) Arthritis of both acromioclavicular joints: Code(s): M19.011 - Primary osteoarthritis, right shoulder; M19.012 - Primary osteoarthritis, left shoulder (2) Left shoulder pain: Code(s): M25.512 - Pain in left shoulder (3) Left elbow pain: Code(s): M25.522 - Pain in left elbow (4) DDD (degenerative disc disease), cervical: Code(s): M50.30 - Other cervical disc degeneration, unspecified cervical region (5) Cervical spondylosis: Code(s): M47.812 - Spondylosis without myelopathy or radiculopathy, cervical region (6) Radiculopathy, cervical: Code(s): M54.12 - Radiculopathy, cervical region (7) Arthritis of knee: Comment: bilateral Code(s): M17.10 - Unilateral primary osteoarthritis, unspecified knee (8) Osteoarthritis of knees, bilateral: Code(s): M17.0 - Bilateral primary osteoarthritis of knee (9) Asthma: Code(s): J45.909 - Unspecified asthma, uncomplicated (10) Osteoarthritis of knees, bilateral: Code(s): M17.0 - Bilateral primary osteoarthritis of knee Plan The patient in received some improvement in bilateral shoulder pain with acromioclavicular joint injection. However she wants some permanent pain improvement. She will be scheduled for implantation of Nevro SCS for elimination of cervicalgia and bilateral shoulder pains. I will see her in the surgery as needed. We need clearance from Dr. Taylor on her pulmonary status for the procedure. The procedure will be done under general anesthesia. . Coding Level of Care Code Est Pt Level 3 (71803) Diagnoses Arthritis of both acromioclavicular joints M19.011; M19.012 Left shoulder pain M25.512 Left elbow pain M25.522 DDD (degenerative disc disease), cervical M50.30 Cervical spondylosis M47.812 Radiculopathy, cervical M54.12 Arthritis of knee M17.10 Osteoarthritis of knees, bilateral M17.0 Asthma J45.909
[2023-09-25 10:11] VITALS: BP 142/70; PULSE 77; RESP 16; O2SAT 94; BMI 44.3
== END 2023-09-25 10:17 | disposition home or self-care (01) ==
PROVIDERS: PCP Student in an Organized Health Care Education/Training Program; Visit Provider Anesthesiology
DX: M19.011 Primary osteoarthritis, right shoulder (principal); M19.012 Primary osteoarthritis, left shoulder; M25.512 Pain in left shoulder; M25.522 Pain in left elbow; M50.30 Other cervical disc degeneration, unspecified cervical region; M47.812 Spondylosis without myelopathy or radiculopathy, cervical region; M54.12 Radiculopathy, cervical region; M17.10 Unilateral primary osteoarthritis, unspecified knee; M17.0 Bilateral primary osteoarthritis of knee; J45.909 Unspecified asthma, uncomplicated
CPT/HCPCS: 99024

== ENCOUNTER → 2023-09-25 09:53 | Outpatient (BNVA) | payer MEDICAID, SELFPAY | PROVIDERS: PCP Student in an Organized Health Care Education/Training Program; Visit Provider Anesthesiology | DX: M17.0 Bilateral primary osteoarthritis of knee (principal); M47.22 Other spondylosis with radiculopathy, cervical region; M50.30 Other cervical disc degeneration, unspecified cervical region; M25.522 Pain in left elbow; M19.011 Primary osteoarthritis, right shoulder; M19.012 Primary osteoarthritis, left shoulder; M25.512 Pain in left shoulder; J45.909 Unspecified asthma, uncomplicated | CPT/HCPCS: 99212 ==

== ENCOUNTER 2023-09-26 08:25 | Outpatient (AMB) | payer MEDICAID, SELFPAY ==
--- NOTE | 2023-09-26 08:46 | A.OFFVIS_ITS ---
Intake Vital Signs 09/26/23 08:52 Height 5 ft 9 in Weight 320 lb 12.361 oz BMI 47.4 Pulse 75 Pulse Source Doppler Pulse Oximetry (%) 95 Oxygen Delivery Method Room Air Intake Visit Reasons: Asthma Allergies aspirin Adverse Reaction (Mild, Verified 09/25/23 10:10) mild vaginal bleeding HPI Asthma HPI Details 53-year-old lady follow-up underlying se nida obstructive sleep apnea, asthma, and environmental allergies. She has been using CPAP with good control of her underlying SANDEE symptoms. Patient unfortunately has ran out of her Advair, and now her asthma is not as well controlled. She has been relying a lot on albuterol MDI/nebs. Though, she denies an acute exacerbation. [facility] Medical History (Updated 09/06/23 @ 22:37 by Nemesio Pruitt CNP) Seizure On beta christina at home On anticoagulant therapy SANDEE (obstructive sleep apnea) Morbid obesity with BMI of 45.0-49.9, adult Gout High cholesterol Hypertension COVID-19 Osteoarthritis of knees, bilateral History of gastric ulcer Left inguinal hernia (~2013) Lab test positive for detection of COVID-19 virus (~11/2019) Bleeding disorder Asthma Surgical History History of back surgery S/P partial hysterectomy (11/10/18) H/O umbilical hernia repair (07/25/06) Hx of endoscopy Family History Father Hx of diabetes insipidus Mother No problems noted. Social History Household Members: Family and Children Housing: House Alcohol intake: never Comment: seizure precautions in place Patient Tobacco Use Status: Never used Tobacco e-Cigarette/Vaping Use: Never Used Second Hand Smoke Exposure: No Advance Directives Date on File: 01/24/21 service: No Current occupational status: unemployed Current occupation: right handed Review of Systems Const Denies daytime sleepiness, Denies excessive sweating, Denies fatigue, Denies fever(s), Denies lethargy, Denies malaise, Denies night sweats, Denies snoring and Denies weight loss Eyes Denies blurry vision and Denies itchy eyes ENT Denies nasal congestion, Denies post nasal drip, Denies sinus pain, Denies sinus pressure and Denies other ( Thrush) Card Denies chest pain, Denies pedal edema, Denies dyspnea, Denies orthopnea and Denies paroxysmal nocturnal dyspnea Resp Denies cough, Denies hemoptysis, Denies excessive phlegm production, Denies dyspnea, Denies snoring and Denies wheezing GI Denies abdominal pain and Denies heartburn Musc Denies myalgias, Denies arthralgias and Denies joint swelling Skin/Breast Denies rash Neuro Denies memory loss and Denies seizure-like activity Psych Denies abnormal sleep pattern, Denies anxiety and Denies memory loss Endo Denies excessive sweating, Denies fatigue and Denies heat intolerance Mandeep/Lymph Denies easy bruising Aller/Immun Denies itchy eyes, Denies seasonal rhinorrhea and Denies wheezing Physical Exam Vital Signs: Last Vital Signs Pulse 75 09/26/23 08:52 Pulse Ox 95 09/26/23 08:52 Oxygen Delivery Method Room Air 09/26/23 08:52 BMI result Body Mass Index 47.4 Const General: no acute distress and alert Nutritional Appearance: not obese Orientation/consciousness: Other orientation findings ( oriented) HEENT Head: Yes atraumatic Eyes General: appearance normal, both eyes and all related structures Sclerae: sclerae normal EOM: EOMs intact bilaterally Neck Neck: Yes supple Lymphatic: no lymphadenopathy noted Resp Effort & Inspection: normal respiratory effort and no use of accessory muscles Auscultation: clear to auscultation bilaterally Cardio Rate: regular rate Rhythm: regular rhythm Heart sounds: no gallops, no murmurs and no rubs Skin General skin exam: other ( warm) Extrem General: No clubbing, No cyanosis and No edema Assessment & Plan Assessment & Plan (1) SANDEE (obstructive sleep apnea): Code(s): G47.33 - Obstructive sleep apnea (adult) (pediatric) Plan: Well controlled on current CPAP therapy. Continue CPAP therapy. (2) Asthma: Code(s): J45.909 - Unspecified asthma, uncomplicated Plan: Suboptimal control as patient has ran out Advair. Now will start on Breo. Continue albuterol MDI/nebs. Medications: New fluticasone furoate-vilanterol 200-25 mcg/dose (Breo Ellipta) 1 inh inhalation DAILY 1 ea 6RF 30 days Discontinued fluticasone propion-salmeterol 115-21 mcg/actuation (Advair HFA) Discontinued Reason: Doctor's Order 2 puffs inhalation BID 30 days 1 ea 6RF J45.909 - Unspecified asthma, uncomplicated Coding Level of Care Code Est Pt Level 4 (66077) Diagnoses SANDEE (obstructive sleep apnea) G47.33 Asthma J45.909
[2023-09-26 08:52] VITALS: PULSE 75; O2SAT 95; BMI 47.4
== END 2023-09-26 09:11 | disposition home or self-care (01) ==
PROVIDERS: PCP Student in an Organized Health Care Education/Training Program; Referring Provider Student in an Organized Health Care Education/Training Program; Visit Provider Internal Medicine Pulmonary Disease
DX: G47.33 Obstructive sleep apnea (adult) (pediatric) (principal); J45.909 Unspecified asthma, uncomplicated
CPT/HCPCS: 99214

== ENCOUNTER → 2023-09-26 08:25 | Outpatient (BNVA) | payer MEDICAID, SELFPAY | PROVIDERS: PCP Student in an Organized Health Care Education/Training Program; Visit Provider Internal Medicine Pulmonary Disease | DX: J45.909 Unspecified asthma, uncomplicated (principal); G47.33 Obstructive sleep apnea (adult) (pediatric) | CPT/HCPCS: 99212 ==

== ENCOUNTER 2023-10-16 12:38 | Outpatient (REF) | payer MEDICAID, SELFPAY ==
--- NOTE | 2023-10-16 12:41 | EEG_ITS ---
This is a 16-channel EEG with an EKG lead. The patient is reported drowsy during the tracing. Background EEG rhythm is low amplitude, mixed theta, beta with no obvious asymmetry or paroxysmal tendency. Photic stimulation does not produce any significant abnormality. Hyperventilation is not performed. Cardiac lead does not reveal any significant abnormality. IMPRESSION: Mild slowing with no evidence of seizure disorder. MD LILIBETH Hubbard/JENNA / [id number]
== END 2023-10-16 12:39 | disposition home or self-care (01) ==
LOC: HO.NEURO 12:38
PROVIDERS: PCP Student in an Organized Health Care Education/Training Program; Visit Provider Nurse Practitioner Family
DX: R56.9 Unspecified convulsions (principal)
CPT/HCPCS: 95816

== ENCOUNTER 2023-10-17 05:53 | Day surgery (SDC) | payer MEDICAID, SELFPAY ==
[2023-10-15 13:25] VITALS: BMI 47.3
--- NOTE | 2023-10-15 15:02 | HO.ANESPROP2 ---
Documented by User: Fariha King NP 10/15/23 15:04 HPI - Anesthesia Eval Consult details Narrative: 53yo F for Spinal Cord Stimulation Implant s/p trial 09/19/23 with GA-ETT 8 Eliquis for afib PMFSH Active Problems Active Problems: All Active Problems Seizure (Acute) Arthritis of both acromioclavicular joints (Acute) Arthritis of left acromioclavicular joint (Acute) Radiculopathy, cervical (Acute) Cervical spondylosis (Acute) DDD (degenerative disc disease), cervical (Acute) Left elbow pain (Acute) Left shoulder pain (Acute) Status post insertion of spinal cord stimulator (Acute) SANDEE (obstructive sleep apnea) (Acute) Trigger finger, left ring finger (Acute) Cluneal neuropathy (Acute) Mononeuropathy, unspecified (Acute) Osteoarthritis, hand (Acute) HTN (hypertension), benign (Acute) Arthritis of knee (Acute) Depression (Acute) Anemia (Acute) GERD with esophagitis (Acute) Dysphagia, pharyngoesophageal phase (Acute) Abdominal bloating (Acute) Spondylosis of lumbar region without myelopathy or radiculopathy (Acute) Carotid stenosis, bilateral (Acute) Headache (Acute) Bilateral knee pain (Acute) Chronic pain syndrome (Acute) Osteoarthritis of knees, bilateral (Acute) Spondylosis of lumbar joint (Acute) Asthma (Acute) Environmental allergies (Acute) Osteoarthritis of knees, bilateral (Acute) Past Medical History Medical History (Updated 09/06/23 @ 22:37 by Nemesio Pruitt CNP) Seizure On beta christina at home On anticoagulant therapy SANDEE (obstructive sleep apnea) Morbid obesity with BMI of 45.0-49.9, adult Gout High cholesterol Hypertension COVID-19 Osteoarthritis of knees, bilateral History of gastric ulcer Left inguinal hernia (~2013) Lab test positive for detection of COVID-19 virus (~11/2019) Bleeding disorder Asthma Family History Family History Father Hx of diabetes insipidus Mother No problems noted. Family history of problems with anesthesia: No Surgical History Surgical History History of back surgery S/P partial hysterectomy (11/10/18) H/O umbilical hernia repair (07/25/06) Hx of endoscopy History of Problems with Anesthesia: No Social History Social History Household Members: Family and Children Housing: House Alcohol intake: never Comment: seizure precautions in place Patient Tobacco Use Status: Never used Tobacco e-Cigarette/Vaping Use: Never Used Second Hand Smoke Exposure: No Use of substances other than those prescribed or required for medical reasons: No Are you DNR?: No Advance Directives: No Advance Directives Information Provided: Yes Advance Directives Date on File: 01/24/21 service: No Current occupational status: unemployed Current occupation: right handed Meds Allergies Allergy/AdvReac Type Severity Reaction Status Date / Time ibuprofen Allergy Unknown Verified 10/17/23 06:14 lisinopril Allergy Unknown Verified 10/17/23 06:14 aspirin AdvReac Mild mild Verified 09/25/23 10:10 vaginal bleeding Home Medications ?Medication ?Instructions ?Recorded ?Confirmed ?Last Taken ?Type albuterol sulfate 90 mcg/actuation 2 puff inhalation Q6H PRN 04/27/20 09/19/23 08/01/22 History aerosol inhaler (ProAir HFA) Shortness Of Breath cetirizine 10 mg tablet 10 mg PO BEDTIME 04/27/20 09/19/23 10/04/22 History docusate sodium 100 mg capsule 100 mg PO BID 04/27/20 09/19/23 12/27/22 History (DOK) duloxetine 30 mg capsule,delayed 30 mg PO BEDTIME 04/27/20 09/19/23 10/04/22 History release metoprolol tartrate 50 mg tablet 50 mg PO BID 04/27/20 09/19/23 12/27/22 History montelukast 10 mg tablet 10 mg PO BEDTIME 04/27/20 09/19/23 10/04/22 History clonidine HCl 0.1 mg tablet 0.1 mg PO BID 06/05/20 09/19/23 12/27/22 History apixaban 5 mg tablet (Eliquis) 5 mg PO BID 06/28/20 09/19/23 10/12/23 History atorvastatin 40 mg tablet 40 mg PO BEDTIME 06/28/20 09/19/23 12/27/22 History losartan 100 mg tablet 100 mg PO DAILY 06/28/20 09/19/23 12/27/22 History furosemide 20 mg tablet 10 mg PO DAILY 12/25/21 09/19/23 12/27/22 History topiramate 100 mg tablet 100 mg PO BEDTIME 12/25/21 09/19/23 10/04/22 History ergocalciferol (vitamin D2) 1,250 1,250 mcg PO FR@0900 01/08/22 09/19/23 12/27/22 History mcg (50,000 unit) capsule ferrous sulfate 325 mg (65 mg 325 mg PO DAILY 01/08/22 09/19/23 10/05/22 09:00 History iron) tablet (FeroSul) amlodipine 5 mg tablet 5 mg PO DAILY 09/24/22 09/19/23 12/27/22 History ascorbic acid (vitamin C) 500 mg 500 mg PO DAILY 10/06/22 09/19/23 10/05/22 09:00 History capsule,extended release omeprazole 40 mg capsule,delayed 40 mg PO DAILY 01/09/23 09/19/23 Unknown History release Exam Height,Weight and Vital Signs: Height 5 ft 9 in Weight 145.15 kg Pertinent Lab Results Pertinent Lab Results: Laboratory Tests 05/16/23 09/24/23 17:49 10:04 WBC 11.8 H Hgb 13.1 Hct 40.2 Plt Count 430 H Sodium 140 Potassium 3.9 Chloride 104 Carbon Dioxide 27 BUN 19 H Creatinine 0.73 Narrative Narrative: EKG 05/2023 Vent. Rate : 070 BPM Atrial Rate : 070 BPM P-R Int : 154 ms QRS Dur : 100 ms QT Int : 418 ms P-R-T Axes : 053 -37 021 degrees QTc Int : 451 ms Normal sinus rhythm Left axis deviation Incomplete right bundle branch block Minimal voltage criteria for LVH, may be normal variant ( [place] product ) Abnormal ECG When compared with ECG of 07-NOV-2022 20:34, No significant change was found Assessment and Plan Assessment Anesthesia Assessment: Chart Reviewed Final Anesthetic Review Family History of Problems with Anesthesia: No History of Problems with Anesthesia: No Documented by User: Laura Begum MD 10/17/23 07:18 [facility] Past Medical History Medical History (Updated 09/06/23 @ 22:37 by Nemesio Pruitt CNP) Seizure On beta christina at home On anticoagulant therapy SANDEE (obstructive sleep apnea) Morbid obesity with BMI of 45.0-49.9, adult Gout High cholesterol Hypertension COVID-19 Osteoarthritis of knees, bilateral History of gastric ulcer Left inguinal hernia (~2013) Lab test positive for detection of COVID-19 virus (~11/2019) Bleeding disorder Asthma Family History Family History Father Hx of diabetes insipidus Mother No problems noted. Surgical History Surgical History History of back surgery S/P partial hysterectomy (11/10/18) H/O umbilical hernia repair (07/25/06) Hx of endoscopy Social History Social History Household Members: Family and Children Housing: House Alcohol intake: never Comment: seizure precautions in place Patient Tobacco Use Status: Never used Tobacco e-Cigarette/Vaping Use: Never Used Second Hand Smoke Exposure: No Use of substances other than those prescribed or required for medical reasons: No Are you DNR?: No Advance Directives: No Advance Directives Information Provided: Yes Advance Directives Date on File: 01/24/21 service: No Current occupational status: unemployed Current occupation: right handed Meds Allergies Allergy/AdvReac Type Severity Reaction Status Date / Time ibuprofen Allergy Unknown Verified 10/17/23 06:14 lisinopril Allergy Unknown Verified 10/17/23 06:14 aspirin AdvReac Mild mild Verified 09/25/23 10:10 vaginal bleeding Home Medications ?Medication ?Instructions ?Recorded ?Confirmed ?Last Taken ?Type albuterol sulfate 90 mcg/actuation 2 puff inhalation Q6H PRN 04/27/20 09/19/23 08/01/22 History aerosol inhaler (ProAir HFA) Shortness Of Breath cetirizine 10 mg tablet 10 mg PO BEDTIME 04/27/20 09/19/23 10/04/22 History docusate sodium 100 mg capsule 100 mg PO BID 04/27/20 09/19/23 12/27/22 History (DOK) duloxetine 30 mg capsule,delayed 30 mg PO BEDTIME 04/27/20 09/19/23 10/04/22 History release metoprolol tartrate 50 mg tablet 50 mg PO BID 04/27/20 09/19/23 12/27/22 History montelukast 10 mg tablet 10 mg PO BEDTIME 04/27/20 09/19/23 10/04/22 History clonidine HCl 0.1 mg tablet 0.1 mg PO BID 06/05/20 09/19/23 12/27/22 History apixaban 5 mg tablet (Eliquis) 5 mg PO BID 06/28/20 09/19/23 10/12/23 History atorvastatin 40 mg tablet 40 mg PO BEDTIME 06/28/20 09/19/23 12/27/22 History losartan 100 mg tablet 100 mg PO DAILY 06/28/20 09/19/23 12/27/22 History furosemide 20 mg tablet 10 mg PO DAILY 12/25/21 09/19/23 12/27/22 History topiramate 100 mg tablet 100 mg PO BEDTIME 12/25/21 09/19/23 10/04/22 History ergocalciferol (vitamin D2) 1,250 1,250 mcg PO FR@0900 01/08/22 09/19/23 12/27/22 History mcg (50,000 unit) capsule ferrous sulfate 325 mg (65 mg 325 mg PO DAILY 01/08/22 09/19/23 10/05/22 09:00 History iron) tablet (FeroSul) amlodipine 5 mg tablet 5 mg PO DAILY 09/24/22 09/19/23 12/27/22 History ascorbic acid (vitamin C) 500 mg 500 mg PO DAILY 10/06/22 09/19/23 10/05/22 09:00 History capsule,extended release omeprazole 40 mg capsule,delayed 40 mg PO DAILY 01/09/23 09/19/23 Unknown History release Exam Airway Mallampati Class: III TM Dist: >3cm Neck ROM: Full Assessment and Plan Assessment Anesthesia Assessment: Anesthesia Plan Discussed Final Anesthetic Review NPO: Yes ASA Class: III Final Preanesthetic Review: No Changes in Pt Med Stat, Meds/Allgs Chart Reviewed, Consent Obtained/Reviewed and Anes Risks/Benef Reviewed Patient Risk: Intermediate Procedure Risk: Intermediate Anesthetic Plan Anesthetic Plan: GA Disposition: Standard PACU
[2023-10-17] VITALS (19 sets, daily range): BP systolic 115–139; BP diastolic 68–89; PULSE 63–85; RESP 14–20; TEMP 36.2–36.6; O2SAT 92–100; BMI 48.9
--- NOTE | ~2023-10-17 | FL_ITS ---
EXAMINATION: XR FLUOROSCOPY WITH IMAGES CLINICAL INFORMATION: Spinal cord stimulation implant COMPARISON: 09/30/2023 TECHNIQUE: Fluoroscopy Supervised By: Dr. Sukhi Soriano. Fluoroscopy Time: 6.0 minutes. Cumulative Dose: 241 mGy. DAP: 34.6 Gycm2. Images: 7. FINDINGS: The submitted images show a spinal stimulator device with leads overlapping the cervical spine. FL/FL guidance in OR IMPRESSION: Intraoperative fluoroscopic guidance was provided during spinal cord stimulator implant. Please see the patient's operative report for full procedural details.
[2023-10-17] MEDS: Lactated Ringers 1,000 ML 100 ML IVCONT (06:44)
--- NOTE | 2023-10-17 06:58 | P.HPSUR_ITS ---
Pre-Procedural Eval Section A - 24 Hr Update-Section A only Date of Service: 10/17/23 The patient is an INPATIENT: No Changes since office visit: Yes Patient answered all questions The patient has been examined within 24 hours of the surgical procedure. The History & Physical has been completed within 30 days and I have reviewed it.: No Section B - Complete if H&P > 30 days Chief Complaint: Radiculopathy, cervical region,spondylosis Details of Present Illness: Cervicalgia cervical chronic pain syndrome Relevant Family History (Specify if Yes): No Relevant Social History: None Present Medications: see Short Stay Collaborative assessment Medical History: No relevant PMH History of Previous Operations: No relevant previous surgery Allergies: Allergies Allergy/AdvReac Type Severity Reaction Status Date / Time ibuprofen Allergy Unknown Verified 10/17/23 06:14 lisinopril Allergy Unknown Verified 10/17/23 06:14 aspirin AdvReac Mild mild Verified 09/25/23 10:10 vaginal bleeding Review of Systems Sugical H&P ROS: Negative: Hem-Onc, Allergic/Immunologic, Genitourinary, Integumentary, Endocrine and Eyes/Ears/Nose/Throat and Yes, Specify: Co nstitution (Morbid obesity), Cardiovascular (Hypertension benign), Respiratory (SANDEE), Neurological (Seizure disorder), Psychiatric (Depression), Gastrointestinal (Dysphagia) and Musculoskeletal (Spondylosis, disc degeneration,) Exam Surgical H&P Exam: Normal: HEENT, Normal: Heart, Normal: Lungs, Normal: Extremities, Normal: Skin and Normal: Neurological and Significant Findings: Abdomen (Enlarged 2 to i/a & s/q fat) Plan Diagnosis/Plan: Unchanged I have reviewed the history and physical and performed a pertinent physical examination on my patient. No changes have occurred unless specified. Time Spent With Patient Time: Total time managing care of this patient today __5__ minutes.
[2023-10-17 07:02] LABS: Prothrombin Time 11.7 SEC (11.1-13.3)
[2023-10-17 09:20] LABS: MRSA Nasal PCR NEGATIVE (Negative); SA Nasal PCR NEGATIVE (Negative)
--- NOTE | 2023-10-17 11:50 | PM.OP ---
Brief Operative Note Date of Service: 10/17/23 Pre-op diagnosis: Chronic pain syndrome, chronic cervical pain, intractable cervical pain syndrome, spondylosis of cervical spine. Post-op diagnosis: same Procedure: Implantation of the Nevro spinal cord stimulator cervical position. Implants: Omnia battery and 2 epidural leads Surgeon: Sukhi Sorinao MD Anesthesia: GETA Was an Silk Screen Printer Machine used for this Procedure?: No Estimated blood loss (mL): 28 Pathology: none sent Condition: stable Disposition: PACU
--- NOTE | 2023-10-17 11:52 | W.PM.OPN ---
Operative Note Operative Note Date of Service: 12/27/22 Narrative: Tamanna is Very peasant 52 y.o. female who came to the OR today today for implantation of spinal cord stimulator for the treatment of chronic pain syndrome, spondylosis of lumbar spine, disc degeneration lumbar. Preoperatively patient received cefazolin 3 g approximately 30 minutes before the procedure. After obtaining informed consent the patient was brought to the operating room, she was supine on the stretcher [employer] monitors were applied and general anesthesia was induced with endotracheal intubation. After that patient was transferred to the operating table prone all pressure points were protected. Time-out was performed delineating correct site, side, the nature of the procedure, patient's allergy, preoperative antibiotic if needed. All operating room staff was participating in OR time-out procedure. Patient's entire back was prepped with ChloraPrep twice and draped with full body fenestrated drape and ioban film. Sterilely draped C-arm was brought over operating field and square picture of T6-T7 T8 vertebrae were demonstrated on the screen. The skin was infiltrated with the mixture of lidocaine 2% and ropivacaine 0.5% in the projection of T5-T6 T7-T8 spinouse procesess. After that number 10 Blade scalpel was used to perform strict midline 11 cm long incision. the incision was widened and deepened until the prevertebral fascia was reached. Thorough hemostasis was obtained, After that attention was concentrated on the T6-T7 epidural interspace. The location of the projection of the right pedicle center of the T8 vertebra was found on the fascia using C-arm. 10 cm 14 gauge introducer epidural needle was inserted through the prevertebral fascia and advanced to T12-L1 epidural interspace. The advancement of the needle was performed on anterior posterior and lateral views. Guitar wire and loss of resistance technique were used to locate epidural space. When guitar wire was spread in the epidural fashion, epidural lead was inserted through the needle and it was advanced to the posterior epidural space.The lead was advanced strictly at the midline approximately to the top of C2 vertebra in the posterior epidural space. The position of the lead in the posterior epidural space was verified on the lateral view. After that location of the projection of the LEFT pedicle center of the T8 vertebra was found using C-arm. 10 cm 14 gauge introducer epidural needle was inserted through the fascia and advanced to T6-T7 epidural interspace. The advancement on the site was very difficult because of the presence of the epidural needle on the opposite side. The decision was made to go 1 interval above T5-T6. 10 cm 14 gauge introducer epidural needle was inserted through the fascia and it was advanced to T5-T6 epidural space. It was done on the right side of the spinal canal as well. The advancement of the needle was performed on anterior posterior and lateral views. Guitar wire and loss of resistance technique were used to locate epidural space. When guitar wire was spread in the epidural fashion, epidural lead was inserted through the needle. Loss of resistance to air technique and guitar wire were used to locate epidural space. After that the epidural lead was advanced slightly left to the midline crossing over existing electrode lead and advanced to the to the top of the C3 vertebra in the posterior epidural space slightly left to the existing electrode. On the lateral view both leads were demonstrated in the posterior epidural space. After satisfactory position of the leads were established the needles were withdrawn, the stylette wires were removed from the epidural leads. The anchoring devices were dislodged on the leads and advanced to the level of the prevertebral fascia. After that the anchoring devices were sutured to the prevertebral fascia using Tycron 0-0 sutures - 2 sutures per each anchoroing device . The fixation scews were locked until 3 clicks heard. The wound was irrigated with vancomycin containing saline and packed with the 4x4 soaked with the same saline solution. After that attention was concentrated on the left upper buttock of the patient were the decision was made to implant the battery. 3 cm below the top of the left iliac crest horizontal incision was made 6.5 cm long using 10 blade scalpel, hemostasis was performed using electric cautery.. Using sharp and dull dissection pocket for the battery was formed in caudad direction from the incision. Thorough hemostasis was performed. After that the wound pocket was irrigated with vancomycin containing normal saline and tunneling device was used to connect midline incision and upper buttock incision Tunneling device was used to connect the two wounds. The epidural leads were dislodged from midline incision to the buttock incision through the tunneling device. Unfortunately the appeared to be slightly short for the existing created pocket wound. The extensions were brought into the operating room and they were connected to the epidural leads. They were tunneled again 1 epidural lead at a time to the pocket wound. After that they were connected to the Omnia battery and impedance was checked and found to be satisfactory with all leads connected. Anchoring screws were fixed on the back of the battery. Tycron of 0- 0 sutures were applied to the superior lateral and superior medial corners of the upper portion of the pocket wound and after that the anchoring sutures were connected to the anchoring orifices on the battery. Electrodes were gathered behind the body of the battery and battery was dislodged into the subcutaneous pocket wound. The sutures were tied and irrigation was repeated. After that 0-0 Polysorb sutures used to close the both wounds and the 0-2 polisorb sutures were used to apptoximate the level of the skin , Eusebia were applied to the skin. The sterile dressing comprised of several 4x4 for each wound was affixed to the skin using medipore tape.. The patient was transfered supine on the stretcher, awaken, and transferred stable to the PACU.
[2023-10-17] MEDS: fentaNYL citrate/PF 100 MCG/2 ML VIAL 50 MCG IVPUSH (12:19)
[2023-10-17] MEDS: Butalb/Acetamin/Caff 50/325/40 TABLET 1 TAB PO (14:16)
[2023-10-17] MEDS: Albuterol Sulfate (0.083%) 2.5 MG/3 ML VIAL.NEB INHALE (14:20)
== END 2023-10-17 15:10 | disposition home or self-care (01) ==
PROVIDERS: Registered Nurse Emergency; PCP Student in an Organized Health Care Education/Training Program; Visit Provider Anesthesiology
PROC: (CPT 63685; principal; 2023-10-17 07:30)
DX: M47.812 Spondylosis without myelopathy or radiculopathy, cervical region (principal); G89.4 Chronic pain syndrome; M54.12 Radiculopathy, cervical region; M50.30 Other cervical disc degeneration, unspecified cervical region; M51.36 Other intervertebral disc degeneration, lumbar region; M19.011 Primary osteoarthritis, right shoulder; M19.012 Primary osteoarthritis, left shoulder; I10 Essential (primary) hypertension; D68.9 Coagulation defect, unspecified; R56.9 Unspecified convulsions; J45.909 Unspecified asthma, uncomplicated; G47.33 Obstructive sleep apnea (adult) (pediatric); E66.01 Morbid (severe) obesity due to excess calories; Z68.42 Body mass index [BMI] 45.0-49.9, adult; Z79.01 Long term (current) use of anticoagulants; Z79.899 Other long term (current) drug therapy; Z99.89 Dependence on other enabling machines and devices; Z88.8 Allergy status to other drugs, medicaments and biological substances; Z56.0 Unemployment, unspecified; Z98.890 Other specified postprocedural states
CPT/HCPCS: 63685; 63650 ×2; 36415; 85610; 87640; 87641; 94640; C1778; C1787; C1816; C1889; J0690; J1100; J1596; J2250; J2405; J2704; J2795; J3010; J3370

== ENCOUNTER → 2023-10-17 05:53 | Outpatient (BNV) | payer MEDICAID, SELFPAY | PROVIDERS: PCP Student in an Organized Health Care Education/Training Program; Visit Provider Anesthesiology | DX: M47.812 Spondylosis without myelopathy or radiculopathy, cervical region (principal) | CPT/HCPCS: 63650; 63685 ==

== ENCOUNTER 2023-10-23 09:06 | Outpatient (AMB) | payer MEDICAID, SELFPAY ==
--- NOTE | 2023-10-23 09:13 | A.OFFVIS_ITS ---
Vital Signs 10/23/23 09:24 Height 5 ft 9 in Weight 328 lb 4 oz BMI 48.5 BP 138/64 Blood Pressure Location Lt brachial Position Sitting Respiration 16 Pulse 64 Pulse Source Pulse Oximeter Pulse Oximetry (%) 96 Oxygen Delivery Method Room Air Intake Visit Reasons: S/p Nevro SCS IMPLANT 10/17/23 Intake Note: Patient comes in for post-op appointment. Reports pain 8/10. Allergies ibuprofen Allergy (Verified 10/23/23 09:24) Unknown lisinopril Allergy (Verified 10/23/23 09:24) Unknown aspirin Adverse Reaction (Mild, Verified 10/23/23 09:24) mild vaginal bleeding HPI Comments Details: Tamanna is back in my office after implant of spinal cord stimulator Nevro SCS cervical position. She reports significant pain from the incisions. The incisions were evaluated. There is slight redness in the projection of both incisions. There is minimal swelling. The patient continues to take antibiotics. The jarad are competent. Bacitracin ointment was applied and Tegaderm dressings were applied. Mobility limitations were explained to the choco castaneda. The need for cervical collar and abdominal binder were also explained to the patient. She needs to continue to were those for the next 7 days. She had very good results of trial of Nevro SCS. She reported 75-90% pain improvement after the procedure. Prior: bilateral acromioclavicular joint injection which was performed on 06/03/2023.. She reports overall 50% of pain improvement in the shoulders. She reports slightly improved mobility of the left upper extremity. However he continues to complain on swelling and pain in bilateral upper shoulders. She is interested in neuromodulation. She is asking me whether she can try the same stimulation in her neck to help her pain in his shoulders as she did for her back. Complains on cervical pain with radiation to the left upper extremity or left side of the thoracic back and even down to the left loin. She also reports associated weakness in the left upper extremity and awkwardness of left upper extremity. She is a subject of multiple interventional procedures. She recently had implantation of spinal cord stimulator to treat her lower back pain. She still reports 80% of pain improvement on spinal cord stimulator. On background of improved lower back pain the thoracic and cervical pain comes to foreground. She was a subject of x-ray of the cervical spine results of which dictated as below. [facility] Medical History (Updated 09/06/23 @ 22:37 by Nemesio Pruitt CNP) Seizure On beta christina at home On anticoagulant therapy SANDEE (obstructive sleep apnea) Morbid obesity with BMI of 45.0-49.9, adult Gout High cholesterol Hypertension COVID-19 Osteoarthritis of knees, bilateral History of gastric ulcer Left inguinal hernia (~2013) Lab test positive for detection of COVID-19 virus (~11/2019) Bleeding disorder Asthma Surgical History History of back surgery S/P partial hysterectomy (11/10/18) H/O umbilical hernia repair (07/25/06) Hx of endoscopy Family History Father Hx of diabetes insipidus Mother No problems noted. Social History Household Members: Family and Children Housing: House Alcohol intake: never Comment: seizure precautions in place Patient Tobacco Use Status: Never used Tobacco e-Cigarette/Vaping Use: Never Used Second Hand Smoke Exposure: No Advance Directives Date on File: 01/24/21 service: No Current occupational status: unemployed Current occupation: right handed Review of Systems Const All systems reviewed & are unremarkable except as noted in HPI and below Physical Exam Vital Signs: Last Vital Signs Pulse 64 10/23/23 09:24 Resp 16 10/23/23 09:24 BP 138/64 10/23/23 09:24 Pulse Ox 96 10/23/23 09:24 Oxygen Delivery Method Room Air 10/23/23 09:24 BMI result Body Mass Index 48.5 Const General: no acute distress and alert Nutritional Appearance: not obese Orientation/consciousness: Other orientation findings ( oriented) HEENT Head: Yes atraumatic Eyes General: appearance normal, both eyes and all related structures Sclerae: sclerae normal EOM: EOMs intact bilaterally Neck Neck: No full ROM Resp Effort & Inspection: normal respiratory effort and no use of accessory muscles Auscultation: clear to auscultation bilaterally Cardio Rate: regular rate Rhythm: regular rhythm Heart sounds: no gallops, no murmurs and no rubs Skin General skin exam: other ( warm) Extrem General: No clubbing, No cyanosis and No edema Assessment & Plan Assessment & Plan (1) Arthritis of both acromioclavicular joints: Code(s): M19.011 - Primary osteoarthritis, right shoulder; M19.012 - Primary osteoarthritis, left shoulder Category: Medical (2) Left shoulder pain: Code(s): M25.512 - Pain in left shoulder Category: Medical (3) Left elbow pain: Code(s): M25.522 - Pain in left elbow Category: Medical (4) DDD (degenerative disc disease), cervical: Code(s): M50.30 - Other cervical disc degeneration, unspecified cervical region Category: Medical (5) Cervical spondylosis: Code(s): M47.812 - Spondylosis without myelopathy or radiculopathy, cervical region Category: Medical (6) Radiculopathy, cervical: Code(s): M54.12 - Radiculopathy, cervical region Category: Medical (7) Arthritis of knee: Comment: bilateral Code(s): M17.10 - Unilateral primary osteoarthritis, unspecified knee Category: Medical (8) Osteoarthritis of knees, bilateral: Code(s): M17.0 - Bilateral primary osteoarthritis of knee Category: Medical (9) Asthma: Code(s): J45.909 - Unspecified asthma, uncomplicated Category: Medical (10) Osteoarthritis of knees, bilateral: Code(s): M17.0 - Bilateral primary osteoarthritis of knee Category: Medical Plan The patient is recovering from implantation of cervical spinal cord stimulator Nevro. There is minor redness and minimal swelling in the projection of the wounds. She will continue antibiotics. We will continue observation. Limita tions were explained to the patient. I will see her in 1 week. . Coding Level of Care Code Est Pt Level 3 (39567) Diagnoses Arthritis of both acromioclavicular joints M19.011; M19.012 Left shoulder pain M25.512 Left elbow pain M25.522 DDD (degenerative disc disease), cervical M50.30 Cervical spondylosis M47.812 Radiculopathy, cervical M54.12 Arthritis of knee M17.10 Osteoarthritis of knees, bilateral M17.0 Asthma J45.909
[2023-10-23 09:24] VITALS: BP 138/64; PULSE 64; RESP 16; O2SAT 96; BMI 48.5
== END 2023-10-23 09:42 | disposition home or self-care (01) ==
PROVIDERS: PCP Student in an Organized Health Care Education/Training Program; Visit Provider Anesthesiology
DX: M19.011 Primary osteoarthritis, right shoulder (principal); M19.012 Primary osteoarthritis, left shoulder; M25.512 Pain in left shoulder; M25.522 Pain in left elbow; M50.30 Other cervical disc degeneration, unspecified cervical region; M47.812 Spondylosis without myelopathy or radiculopathy, cervical region; M54.12 Radiculopathy, cervical region; M17.10 Unilateral primary osteoarthritis, unspecified knee; M17.0 Bilateral primary osteoarthritis of knee; J45.909 Unspecified asthma, uncomplicated
CPT/HCPCS: 99024

== ENCOUNTER → 2023-10-23 09:06 | Outpatient (BNVA) | payer MEDICAID, SELFPAY | PROVIDERS: PCP Student in an Organized Health Care Education/Training Program; Visit Provider Anesthesiology | DX: M19.011 Primary osteoarthritis, right shoulder (principal); M19.012 Primary osteoarthritis, left shoulder; M25.512 Pain in left shoulder; M25.522 Pain in left elbow; M50.30 Other cervical disc degeneration, unspecified cervical region; M47.812 Spondylosis without myelopathy or radiculopathy, cervical region; M54.12 Radiculopathy, cervical region; M17.10 Unilateral primary osteoarthritis, unspecified knee; M17.0 Bilateral primary osteoarthritis of knee; J45.909 Unspecified asthma, uncomplicated; Z96.82 Presence of neurostimulator | CPT/HCPCS: 99212 ==

== ENCOUNTER 2023-10-30 08:34 | Outpatient (AMB) | payer MEDICAID, SELFPAY ==
--- NOTE | 2023-10-30 09:38 | A.OFFVIS_ITS ---
Vital Signs 10/30/23 09:55 Height 5 ft 9 in Weight 328 lb 4 oz BMI 48.5 BP 159/90 H Blood Pressure Location Lt brachial Position Sitting Respiration 16 Pulse 69 Pulse Source Pulse Oximeter Pulse Oximetry (%) 97 Oxygen Delivery Method Room Air Intake Visit Reasons: S/p Nevro SCS IMPLANT (2nd visit) Intake Note: Patient comes in for post-op appointment week 2. Reports pain 8/10. Allergies ibuprofen Allergy (Verified 10/30/23 09:55) Unknown lisinopril Allergy (Verified 10/30/23 09:55) Unknown aspirin Adverse Reaction (Mild, Verified 10/30/23 09:55) mild vaginal bleeding HPI Comments Details: Tamanna is back in my office after implant of spinal cord stimulator Nevro SCS cervical position. She reports significant pain from the incisions. The incisions were evaluated. There is slight redness in the projection of both incisions. There is no swelling. There is no pathological discharge, there is minimal tenderness on palpation. She is doing very good and reports significant pain relief from the minimal action of the Nevro SCS in her neck. She continues to were abdominal binder. She continues to were loosely placed cervical collar. She is recommended to continue to do so for 6 more weeks. On the other side she showed me her left forearm where there is swelling in the projection of the anterior surface close to the elbow. She received IV before procedure into the left hand. There is no redness on inspection. There is tenderness on palpation. It could be potentially infection related to IV insertion. I recommended her to apply heat to the area I also told her to continue antibiotics I prescribed to her before the procedure. The jarad were removed today and sterile dressings were applied. I will see the patient in 2 weeks when she will complete the course of antibiotics. We will turn the Nevro SCS machine today to the full power. She will be able to start charging it as soon as possible. She had very good results of trial of Nevro SCS. She reported 75-90% pain improvement after the procedure. Prior: bilateral acromioclavicular joint injection which was performed on 06/03/2023.. She reports overall 50% of pain improvement in the shoulders. She reports slightly improved mobility of the left upper extremity. However he continues to complain on swelling and pain in bilateral upper shoulders. She is interested in neuromodulation. She is asking me whether she can try the same stimulation in her neck to help her pain in his shoulders as she did for her back. Complains on cervical pain with radiation to the left upper extremity or left side of the thoracic back and even down to the left loin. She also reports associated weakness in the left upper extremity and awkwardness of left upper extremity. She is a subject of multiple interventional procedures. She recently had implantation of spinal cord stimulator to treat her lower back pain. She still reports 80% of pain improvement on spinal cord stimulator. On background of improved lower back pain the thoracic and cervical pain comes to foreground. She was a subject of x-ray of the cervical spine results of which dictated as below. [facility] Medical History (Updated 09/06/23 @ 22:37 by Nemesio Pruitt CNP) Seizure On beta christina at home On anticoagulant therapy SANDEE (obstructive sleep apnea) Morbid obesity with BMI of 45.0-49.9, adult Gout High cholesterol Hypertension COVID-19 Osteoarthritis of knees, bilateral History of gastric ulcer Left inguinal hernia (~2013) Lab test positive for detection of COVID-19 virus (~11/2019) Bleeding disorder Asthma Surgical History History of back surgery S/P partial hysterectomy (11/10/18) H/O umbilical hernia repair (07/25/06) Hx of endoscopy Family History Father Hx of diabetes insipidus Mother No problems noted. Social History Household Members: Family and Children Housing: House Alcohol intake: never Comment: seizure precautions in place Patient Tobacco Use Status: Never used Tobacco e-Cigarette/Vaping Use: Never Used Second Hand Smoke Exposure: No Advance Directives Date on File: 01/24/21 service: No Current occupational status: unemployed Current occupation: right handed Review of Systems Const All systems reviewed & are unremarkable except as noted in HPI and below Physical Exam Vital Signs: Last Vital Signs Pulse 69 10/30/23 09:55 Resp 16 10/30/23 09:55 BP 159/90 H 10/30/23 09:55 Pulse Ox 97 10/30/23 09:55 Oxygen Delivery Method Room Air 10/30/23 09:55 BMI result Body Mass Index 48.5 Const General: no acute distress and alert Nutritional Appearance: not obese Orientation/consciousness: Other orientation findings ( oriented) HEENT Head: Yes atraumatic Eyes General: appearance normal, both eyes and all related structures Sclerae: sclerae normal EOM: EOMs intact bilaterally Neck Neck: No full ROM Resp Effort & Inspection: normal respiratory effort and no use of accessory muscles Auscultation: clear to auscultation bilaterally Cardio Rate: regular rate Rhythm: regular rhythm Heart sounds: no gallops, no murmurs and no rubs Skin General skin exam: other ( warm) Extrem General: No clubbing, No cyanosis and No edema Assessment & Plan Assessment & Plan (1) Arthritis of both acromioclavicular joints: Code(s): M19.011 - Primary osteoarthritis, right shoulder; M19.012 - Primary osteoarthritis, left shoulder Category: Medical (2) Left shoulder pain: Code(s): M25.512 - Pain in left shoulder Category: Medical (3) Left elbow pain: Code(s): M25.522 - Pain in left elbow Category: Medical (4) DDD (degenerative disc disease), cervical: Code(s): M50.30 - Other cervical disc degeneration, unspecified cervical region Category: Medical (5) Cervical spondylosis: Code(s): M47.812 - Spondylosis without myelopathy or radiculopathy, cervical region Category: Medical (6) Radiculopathy, cervical: Code(s): M54.12 - Radiculopathy, cervical region Category: Medical (7) Arthritis of knee: Comment: bilateral Code(s): M17.10 - Unilateral primary osteoarthritis, unspecified knee Category: Medical (8) Osteoarthritis of knees, bilateral: Code(s): M17.0 - Bilateral primary osteoarthritis of knee Category: Medical (9) Asthma: Code(s): J45.909 - Unspecified asthma, uncomplicated Category: Medical (10) Osteoarthritis of knees, bilateral: Code(s): M17.0 - Bilateral primary osteoarthritis of knee Category: Medical Plan The patient is recovering from implantation of cervical spinal cord stimulator Nevro. There is minor redness no swelling in the projection of bilateral wounds. I suspect the redness is related to the bacitracin ointment. I decided not to apply ointment today. The wounds were worst with ChloraPrep and jarad removed. Patient tolerated all of it well. I applied dry dressing to both wounds. I recommended her to observe activities limitations as with they were described before. I carefully explained those activities limitations for her. Patient is very happy with this procedure. However she reported to me swelling in the projection of the left forearm on anterior surface close to the elbow. It maybe inflammation related to the IV insertion into the left hand. I recommended her to continue antibiotics for couple of more weeks. The refill is available. I also recommended her to apply moderate heat heat to the area of the swelling. I will see her in 1 week. Patient Instructions: I here by testify that I spent 30 minutes in conversation with this patient as well as planning her care and organizing this note. Coding Level of Care Code Est Pt Level 4 (80594) Diagnoses Arthritis of both acromioclavicular joints M19.011; M19.012 Left shoulder pain M25.512 Left elbow pain M25.522 DDD (degenerative disc disease), cervical M50.30 Cervical spondylosis M47.812 Radiculopathy, cervical M54.12 Arthritis of knee M17.10 Osteoarthritis of knees, bilateral M17.0 Asthma J45.909
[2023-10-30 09:55] VITALS: BP 159/90; PULSE 69; RESP 16; O2SAT 97; BMI 48.5
== END 2023-10-30 10:01 | disposition home or self-care (01) ==
PROVIDERS: PCP Student in an Organized Health Care Education/Training Program; Visit Provider Anesthesiology
DX: M19.011 Primary osteoarthritis, right shoulder (principal); M19.012 Primary osteoarthritis, left shoulder; M25.512 Pain in left shoulder; M25.522 Pain in left elbow; M50.30 Other cervical disc degeneration, unspecified cervical region; M47.812 Spondylosis without myelopathy or radiculopathy, cervical region; M54.12 Radiculopathy, cervical region; M17.10 Unilateral primary osteoarthritis, unspecified knee; M17.0 Bilateral primary osteoarthritis of knee; J45.909 Unspecified asthma, uncomplicated
CPT/HCPCS: 99214

== ENCOUNTER → 2023-10-30 08:34 | Outpatient (BNVA) | payer MEDICAID, SELFPAY | PROVIDERS: PCP Student in an Organized Health Care Education/Training Program; Visit Provider Anesthesiology | DX: M19.011 Primary osteoarthritis, right shoulder (principal); M19.012 Primary osteoarthritis, left shoulder; M25.512 Pain in left shoulder; M25.522 Pain in left elbow; M50.30 Other cervical disc degeneration, unspecified cervical region; M47.812 Spondylosis without myelopathy or radiculopathy, cervical region; M54.12 Radiculopathy, cervical region; M17.10 Unilateral primary osteoarthritis, unspecified knee; M17.0 Bilateral primary osteoarthritis of knee; J45.909 Unspecified asthma, uncomplicated | CPT/HCPCS: 99212 ==

== ENCOUNTER 2023-11-13 09:41 | Outpatient (AMB) | payer MEDICAID, SELFPAY ==
--- NOTE | 2023-11-13 09:42 | MHC.OFFVIS ---
Vital Signs 11/13/23 09:55 Height 5 ft 9 in Weight 328 lb 4 oz BMI 48.5 BP 134/86 Blood Pressure Location Lt brachial Position Sitting Respiration 17 Pulse 69 Pulse Source Pulse Oximeter Pulse Oximetry (%) 99 Oxygen Delivery Method Room Air Intake Visit Reasons: 2 WEEK FOLLOW UP Intake Note: Patient comes in for 2 weeks follow up. Reports pain 0/10. Allergies ibuprofen Allergy (Verified 11/13/23 09:55) Unknown lisinopril Allergy (Verified 11/13/23 09:55) Unknown aspirin Adverse Reaction (Mild, Verified 11/13/23 09:55) mild vaginal bleeding HPI Comments Details: Tamanna is back in my office after implant of spinal cord stimulator Nevro SCS cervical position. Today is a week tree after the procedure. The incisions were evaluated. There is slight redness in the projection of both incisions still persists however there is no swelling and no pathological discharge no tenderness on palpation. The dressings were removed the patient was allowed to resume normal bathroom routine. She reports excellent pain relief from spinal cord stimulator. However she complained today on pain in bilateral knees. Her pain is very severe and unbearable. We usually treat this pain once in 5 months intra-articular knee steroid injections, however I can not do it now because she has to be another 5 weeks staying away from NSAIDs and steroids. I offered her Synvisc injections. I will schedule her next Friday11/17/2023 for the bilateral Synvisc injection. She had very good results of trial of Nevro SCS. She reported 75-90% pain improvement after the procedure. Prior: bilateral acromioclavicular joint injection which was performed on 06/03/2023.. She reports overall 50% of pain improvement in the shoulders. She reports slightly improved mobility of the left upper extremity. However he continues to complain on swelling and pain in bilateral upper shoulders. She is interested in neuromodulation. She is asking me whether she can try the same stimulation in her neck to help her pain in his shoulders as she did for her back. Complains on cervical pain with radiation to the left upper extremity or left side of the thoracic back and even down to the left loin. She also reports associated weakness in the left upper extremity and awkwardness of left upper extremity. She is a subject of multiple interventional procedures. She recently had implantation of spinal cord stimulator to treat her lower back pain. She still reports 80% of pain improvement on spinal cord stimulator. On background of improved lower back pain the thoracic and cervical pain comes to foreground. She was a subject of x-ray of the cervical spine results of which dictated as below. [facility] Medical History (Updated 09/06/23 @ 22:37 by Nemesio Pruitt CNP) Seizure On beta christina at home On anticoagulant therapy SANDEE (obstructive sleep apnea) Morbid obesity with BMI of 45.0-49.9, adult Gout High cholesterol Hypertension COVID-19 Osteoarthritis of knees, bilateral History of gastric ulcer Left inguinal hernia (~2013) Lab test positive for detection of COVID-19 virus (~11/2019) Bleeding disorder Asthma Surgical History History of back surgery S/P partial hysterectomy (11/10/18) H/O umbilical hernia repair (07/25/06) Hx of endoscopy Family History Father Hx of diabetes insipidus Mother No problems noted. Social History Household Members: Family and Children Housing: House Alcohol intake: never Comment: seizure precautions in place Patient Tobacco Use Status: Never used Tobacco e-Cigarette/Vaping Use: Never Used Second Hand Smoke Exposure: No Advance Directives Date on File: 01/24/21 service: No Current occupational status: unemployed Current occupation: right handed Review of Systems Const All systems reviewed & are unremarkable except as noted in HPI and below Physical Exam Vital Signs: Last Vital Signs Pulse 69 11/13/23 09:55 Resp 17 11/13/23 09:55 BP 134/86 11/13/23 09:55 Pulse Ox 99 11/13/23 09:55 Oxygen Delivery Method Room Air 11/13/23 09:55 BMI result Body Mass Index 48.5 Const General: no acute distress and alert Nutritional Appearance: not obese Orientation/consciousness: Other orientation findings ( oriented) HEENT Head: Yes atraumatic Eyes General: appearance normal, both eyes and all related structures Sclerae: sclerae normal EOM: EOMs intact bilaterally Neck Neck: No full ROM Resp Effort & Inspection: normal respiratory effort and no use of accessory muscles Auscultation: clear to auscultation bilaterally Cardio Rate: regular rate Rhythm: regular rhythm Heart sounds: no gallops, no murmurs and no rubs Skin General skin exam: other ( warm) Extrem General: No clubbing, No cyanosis and No edema Assessment & Plan Assessment & Plan (1) Arthritis of both acromioclavicular joints: Code(s): M19.011 - Primary osteoarthritis, right shoulder; M19.012 - Primary osteoarthritis, left shoulder Category: Medical (2) Left shoulder pain: Code(s): M25.512 - Pain in left shoulder Category: Medical (3) Left elbow pain: Code(s): M25.522 - Pain in left elbow Category: Medical (4) DDD (degenerative disc disease), cervical: Code(s): M50.30 - Other cervical disc degeneration, unspecified cervical region Category: Medical (5) Cervical spondylosis: Code(s): M47.812 - Spondylosis without myelopathy or radiculopathy, cervical region Category: Medical (6) Radiculopathy, cervical: Code(s): M54.12 - Radiculopathy, cervical region Category: Medical (7) Arthritis of knee: Comment: bilateral Code(s): M17.10 - Unilateral primary osteoarthritis, unspecified knee Category: Medical (8) Osteoarthritis of knees, bilateral: Code(s): M17.0 - Bilateral primary osteoarthritis of knee Category: Medical (9) Asthma: Code(s): J45.909 - Unspecified asthma, uncomplicated Category: Medical (10) Osteoarthritis of knees, bilateral: Code(s): M17.0 - Bilateral primary osteoarthritis of knee Category: Medical Plan The patient is recovering from implantation of cervical spinal cord stimulator Nevro. There is minor redness no swelling in the projection of bilateral wounds. Minor redness persists however wounds are healed well. She requests me to perform our usual knee steroid injection today. I told her for the next 5 weeks I will not be able to perform this procedure. Instead I offered her Synvisc injection into bilateral knees. We will obtain the medication and we will perform this injection next Friday11/17/2023. Patient Instructions: I here by testify that I spent 32 minutes in conversation with this patient as well as planning her care, connecting to other facilities of the hospital and organizing this note. Coding Level of Care Code Est Pt Level 4 (97364) Diagnoses Arthritis of both acromioclavicular joints M19.011; M19.012 Left shoulder pain M25.512 Left elbow pain M25.522 DDD (degenerative disc disease), cervical M50.30 Cervical spondylosis M47.812 Radiculopathy, cervical M54.12 Arthritis of knee M17.10 Osteoarthritis of knees, bilateral M17.0 Asthma J45.909
[2023-11-13 09:55] VITALS: BP 134/86; PULSE 69; RESP 17; O2SAT 99; BMI 48.5
== END 2023-11-13 10:17 | disposition home or self-care (01) ==
PROVIDERS: PCP Student in an Organized Health Care Education/Training Program; Referring Provider Student in an Organized Health Care Education/Training Program; Visit Provider Anesthesiology
DX: M19.011 Primary osteoarthritis, right shoulder (principal); M19.012 Primary osteoarthritis, left shoulder; M25.512 Pain in left shoulder; M25.522 Pain in left elbow; M50.30 Other cervical disc degeneration, unspecified cervical region; M47.812 Spondylosis without myelopathy or radiculopathy, cervical region; M54.12 Radiculopathy, cervical region; M17.10 Unilateral primary osteoarthritis, unspecified knee; M17.0 Bilateral primary osteoarthritis of knee; J45.909 Unspecified asthma, uncomplicated
CPT/HCPCS: 99214

== ENCOUNTER → 2023-11-13 09:41 | Outpatient (BNVA) | payer MEDICAID, SELFPAY | PROVIDERS: PCP Student in an Organized Health Care Education/Training Program; Visit Provider Anesthesiology | DX: M19.011 Primary osteoarthritis, right shoulder (principal); M19.012 Primary osteoarthritis, left shoulder; M25.512 Pain in left shoulder; M25.522 Pain in left elbow; M50.30 Other cervical disc degeneration, unspecified cervical region; M17.0 Bilateral primary osteoarthritis of knee; M47.812 Spondylosis without myelopathy or radiculopathy, cervical region; M54.12 Radiculopathy, cervical region; J45.909 Unspecified asthma, uncomplicated | CPT/HCPCS: 99212 ==

== ENCOUNTER 2023-11-17 09:29 | Outpatient (AMB) | payer MEDICAID, SELFPAY ==
--- NOTE | 2023-11-17 09:30 | MHC.OFFVIS ---
Vital Signs 11/17/23 09:37 Height 5 ft 9 in Weight 223 lb BMI 32.9 BP 158/92 H Blood Pressure Location Lt brachial Position Sitting Respiration 18 Pulse 65 Pulse Source Pulse Oximeter Pulse Oximetry (%) 98 Oxygen Delivery Method Room Air Intake Visit Reasons: SYNVISC INJECTIONS Allergies ibuprofen Allergy (Verified 11/17/23 09:38) Unknown lisinopril Allergy (Verified 11/17/23 09:38) Unknown aspirin Adverse Reaction (Mild, Verified 11/17/23 09:38) mild vaginal bleeding HPI Comments Details: Tamanna is back in my office after implant of spinal cord stimulator Nevro SCS cervical position. Today is a week 4 after the procedure. She is here for Synvisc injection. In the past we performed knee steroid injections for her knees which helped her significantly. However now I can not do the steroid injections because of the recent SCS implant. I schedule her today for injection of the Synvisc, see the procedure as below. She had very good results of trial of Nevro SCS. She reported 75-90% pain improvement after the procedure. Prior: bilateral acromioclavicular joint injection which was performed on 06/03/2023.. She reports overall 50% of pain improvement in the shoulders. She reports slightly improved mobility of the left upper extremity. However he continues to complain on swelling and pain in bilateral upper shoulders. She is interested in neuromodulation. She is asking me whether she can try the same stimulation in her neck to help her pain in his shoulders as she did for her back. Complains on cervical pain with radiation to the left upper extremity or left side of the thoracic back and even down to the left loin. She also reports associated weakness in the left upper extremity and awkwardness of left upper extremity. She is a subject of multiple interventional procedures. She recently had implantation of spinal cord stimulator to treat her lower back pain. She still reports 80% of pain improvement on spinal cord stimulator. On background of improved lower back pain the thoracic and cervical pain comes to foreground. She was a subject of x-ray of the cervical spine results of which dictated as below. [facility] Medical History (Updated 09/06/23 @ 22:37 by Nemesio Pruitt CNP) Seizure On beta christina at home On anticoagulant therapy SANDEE (obstructive sleep apnea) Morbid obesity with BMI of 45.0-49.9, adult Gout High cholesterol Hypertension COVID-19 Osteoarthritis of knees, bilateral History of gastric ulcer Left inguinal hernia (~2013) Lab test positive for detection of COVID-19 virus (~11/2019) Bleeding disorder Asthma Surgical History History of back surgery S/P partial hysterectomy (11/10/18) H/O umbilical hernia repair (07/25/06) Hx of endoscopy Family History Father Hx of diabetes insipidus Mother No problems noted. Social History Household Members: Family and Children Housing: House Alcohol intake: never Comment: seizure precautions in place Patient Tobacco Use Status: Never used Tobacco e-Cigarette/Vaping Use: Never Used Second Hand Smoke Exposure: No Advance Directives Date on File: 01/24/21 service: No Current occupational status: unemployed Current occupation: right handed Review of Systems Const All systems reviewed & are unremarkable except as noted in HPI and below Physical Exam Vital Signs: Last Vital Signs Pulse 65 11/17/23 09:37 Resp 18 11/17/23 09:37 BP 158/92 H 11/17/23 09:37 Pulse Ox 98 11/17/23 09:37 Oxygen Delivery Method Room Air 11/17/23 09:37 BMI result Body Mass Index 32.9 Const General: no acute distress and alert Nutritional Appearance: not obese Orientation/consciousness: Other orientation findings ( oriented) HEENT Head: Yes atraumatic Eyes General: appearance normal, both eyes and all related structures Sclerae: sclerae normal EOM: EOMs intact bilaterally Neck Neck: No full ROM Resp Effort & Inspection: normal respiratory effort and no use of accessory muscles Auscultation: clear to auscultation bilaterally Cardio Rate: regular rate Rhythm: regular rhythm Heart sounds: no gallops, no murmurs and no rubs Skin General skin exam: other ( warm) Extrem Other: Bilateral knees are slightly edematous, range of motion is limited crepitus on palpation in bilateral knees. General: No clubbing, No cyanosis and No edema Assessment & Plan Assessment & Plan (1) Arthritis of both acromioclavicular joints: Code(s): M19.011 - Primary osteoarthritis, right shoulder; M19.012 - Primary osteoarthritis, left shoulder Category: Medical (2) Left shoulder pain: Code(s): M25.512 - Pain in left shoulder Category: Medical (3) Left elbow pain: Code(s): M25.522 - Pain in left elbow Category: Medical (4) DDD (degenerative disc disease), cervical: Code(s): M50.30 - Other cervical disc degeneration, unspecified cervical region Category: Medical (5) Cervical spondylosis: Code(s): M47.812 - Spondylosis without myelopathy or radiculopathy, cervical region Category: Medical (6) Radiculopathy, cervical: Code(s): M54.12 - Radiculopathy, cervical region Category: Medical (7) Arthritis of knee: Comment: bilateral Code(s): M17.10 - Unilateral primary osteoarthritis, unspecified knee Category: Medical (8) Osteoarthritis of knees, bilateral: Code(s): M17.0 - Bilateral primary osteoarthritis of knee Category: Medical (9) Asthma: Code(s): J45.909 - Unspecified asthma, uncomplicated Category: Medical (10) Osteoarthritis of knees, bilateral: Code(s): M17.0 - Bilateral primary osteoarthritis of knee Category: Medical Plan: The patient was positioned sitting on the examination table. Anterior lateral surfaces of bilateral knees were prepped with ChloraPrep and draped with sterile towels. In retropatellar fashion 6 cc of the Synvisc was injected into bilateral knees in strict sterile condition. The needles were withdrawn and sterile Band-Aids were applied. The patient tolerated procedure well. Plan The patient is recovering from implantation of cervical spinal cord stimulator Nevro. Because of the inability to inject steroids into bilateral knees I schedule her today for bilateral Synvisc knee injection procedure and see as above. Coding Level of Care Code Est Pt Level 3 (57719) Procedure Only Diagnoses Arthritis of both acromioclavicular joints M19.011; M19.012 Left shoulder pain M25.512 Left elbow pain M25.522 DDD (degenerative disc disease), cervical M50.30 Cervical spondylosis M47.812 Radiculopathy, cervical M54.12 Arthritis of knee M17.10 Osteoarthritis of knees, bilateral M17.0 Asthma J45.909
[2023-11-17 09:37] VITALS: BP 158/92; PULSE 65; RESP 18; O2SAT 98; BMI 32.9
== END 2023-11-17 10:16 | disposition home or self-care (01) ==
PROVIDERS: PCP Student in an Organized Health Care Education/Training Program; Referring Provider Student in an Organized Health Care Education/Training Program; Visit Provider Anesthesiology
DX: M50.30 Other cervical disc degeneration, unspecified cervical region (principal); M47.812 Spondylosis without myelopathy or radiculopathy, cervical region; M54.12 Radiculopathy, cervical region; Z96.82 Presence of neurostimulator; M17.0 Bilateral primary osteoarthritis of knee
CPT/HCPCS: 20610; 99213

== ENCOUNTER → 2023-11-17 09:29 | Outpatient (BNVA) | payer MEDICAID, SELFPAY | PROVIDERS: PCP Student in an Organized Health Care Education/Training Program; Visit Provider Anesthesiology | DX: M19.011 Primary osteoarthritis, right shoulder (principal); M19.012 Primary osteoarthritis, left shoulder; M25.522 Pain in left elbow; M50.30 Other cervical disc degeneration, unspecified cervical region; M47.22 Other spondylosis with radiculopathy, cervical region; M17.0 Bilateral primary osteoarthritis of knee; Z96.89 Presence of other specified functional implants | CPT/HCPCS: 20610; 99212; J7325 ==

== ENCOUNTER 2023-12-10 09:23 | Outpatient (AMB) | payer MEDICAID, SELFPAY ==
--- NOTE | 2023-12-10 09:48 | A.OFFVIS_ITS ---
Vital Signs 12/10/23 09:49 Height 5 ft 9 in Weight 223 lb BMI 32.9 Intake Visit Reasons: follow up Seizures-CONF Intake Note: Patient presents for follow up seizures. patient here for EMG reslts Allergies ibuprofen Allergy (Verified 12/10/23 15:20) Unknown lisinopril Allergy (Verified 12/10/23 15:20) Unknown aspirin Adverse Reaction (Mild, Verified 12/10/23 15:20) mild vaginal bleeding Medication List - Last Reconciled 12/10/23 by EVONNE Adkins albuterol sulfate 90 mcg/actuation (ProAir HFA) 2 puffs inhalation Q6H PRN albuterol sulfate 2.5 mg (6 mL) inhalation Q4-6H PRN 30 days amlodipine 5 mg PO DAILY apixaban (Eliquis) 5 mg PO BID ascorbic acid (vitamin C) ER 500 mg PO DAILY atorvastatin 40 mg PO BEDTIME cephalexin 1,000 mg (2 x 500 mg) PO Q8H 15 days cetirizine 10 mg PO BEDTIME clonidine HCl 0.1 mg PO BID cyclobenzaprine 10 mg PO TID PRN docusate sodium (DOK) 100 mg PO BID duloxetine 30 mg PO BEDTIME ergocalciferol (vitamin D2) 1,250 mcg PO FR@0900 ferrous sulfate (FeroSul) 325 mg PO DAILY fluticasone furoate-vilanterol 200-25 mcg/dose (Breo Ellipta) 1 inh inhalation DAILY 30 days furosemide 10 mg PO DAILY gabapentin 300 mg PO BID 30 days galcanezumab-gnlm (Emgality Pen) 240 mg (2 mL) subcut ONCE 30 days losartan 100 mg PO DAILY magnesium oxide 400 mg PO BEDTIME 30 days metoprolol tartrate 50 mg PO BID montelukast 10 mg PO BEDTIME omeprazole 40 mg PO DAILY oxycodone 5 mg PO Q4H PRN 5 days MDD 6 riboflavin (vitamin B2) 400 mg PO DAILY 30 days topiramate 100 mg PO BEDTIME HPI Comments Details: 53-yr-old female presents for f/u visit. Pt is accompanied by her dtr, Bruce Snell. Pt comes for f/u of seizures and headaches- pt states the headaches are her primary concern. EEG: Mild slowing with no evidence of seizure disorder. Pt's lasts seizure was yesterday. She is not sure how often this occurs. She tries to resist the seizure, but cannot. Has more seizures if more stressed or she has a severe headache. Head moves back, eyes roll back, becomes stiff, then shaking- this lasted 15-30 seconds. When she comes to- her eyes are watery and she appears out of it. Afterwards she had to take a nap. This is a typical seizure episode for her. She has never lost urine or bit her tongue. 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 She states that [facility] had told her she has a history of seizures. Pt reports she also had a history of migraine, which worsened after she had COVID-19 in 2019. Typical headache characteristics: Prodrome symptoms: unsure Aura: unsure Pain, Location, quality, characteristics: Severe, left sided temporal pulsating pain a/w swelling, photophobia, phonophobia, osmophobia, allodynia, nausea, vomiting- sometimes, internal spinning dizziness, lightheadedness, fatigue, cognitive difficulties, activity intolerance, Parethesias: LUE tingling, red eye- likes veins have popped, watery eye, facial warmth. Postdrome: drained Triggers: she does not think there is a specific trigger Time of day: No specific time of day Duration and Frequency: How does headache impact your life? cannot function. Uses Tylenol prn- not effective. She has symptomatic asthma. Head CT 2022- unremarkable. Pt's meds are dispensed by her dtr from a prefilled med box. [facility] Medical History Seizure On beta christina at home On anticoagulant therapy SANDEE (obstructive sleep apnea) Morbid obesity with BMI of 45.0-49.9, adult Gout High cholesterol Hypertension COVID-19 Osteoarthritis of knees, bilateral History of gastric ulcer Left inguinal hernia (~2013) Lab test positive for detection of COVID-19 virus (~11/2019) Bleeding disorder Asthma Surgical History History of back surgery S/P partial hysterectomy (11/10/18) H/O umbilical hernia repair (07/25/06) Hx of endoscopy Family History Father Hx of diabetes insipidus Mother No problems noted. Social History (Reviewed 08/26/23 @ 09:59 by Germania Hanson [facility] [place]) Household Members: Family and Children Housing: House Alcohol intake: never Comment: seizure precautions in place Patient Tobacco Use Status: Never used Tobacco e-Cigarette/Vaping Use: Never Used Second Hand Smoke Exposure: No Advance Directives Date on File: 01/24/21 service: No Current occupational status: unemployed Current occupation: right handed Review of Systems Const All systems reviewed & are unremarkable except as noted in HPI and below Physical Exam Vital Signs: BMI result Body Mass Index 32.9 Const General: cooperative and no acute distress HEENT Head: Yes normocephalic Resp Effort & Inspection: normal respiratory effort and able to speak in complete sentences Neuro Other: A&O w/ STM lapses- specifically r/t medication names, medical hx. During visit, brief episode of eye blinking then rolling back, posture remained neutral. Pt's dtr encouraged pt to bretah slowly which pt did, and the episode resolved in < 20 seconds. Left temporal tenderness/mild swelling from anterior yazidism to lower left TMJ region w/o pulsations. General: gait normal and CN's II-XI intact bilaterally Cognition (Neuro): normal cognition Motor exam (neuro): 5/5 motor strength present throughout Psych Appearance: grossly normal Mental Status: mental status grossly normal Speech and movement: Normal speech and movement present Affect: normal affect Attitude: cooperative Thought process: Normal thought process present Thought content: Normal thought content present Insight: Good insight present (Psych) Judgement: Good judgement present (Psych) Assessment & Plan Assessment & Plan (1) Seizure: Code(s): R56.9 - Unspecified convulsions Category: Medical (2) Worsening headaches: Code(s): R51.9 - Headache, unspecified Category: Medical (3) Paresthesia: Code(s): R20.2 - Paresthesia of skin Category: Medical (4) Migraine with aura: Comment: ? LUE tingling is migraine sensory aura Code(s): G43.109 - Migraine with aura, not intractable, without status migrainosus Category: Medical Plan Reviewed EEG- mild slowing- no evidence of epileptic activity. Pt advised to undergo brain MRI w/wo. For convulsions: Continue to use CPAP night;y > 4 hrs. Continue Gabapentin 300mg bid. Future considerations- ambulatory EEG, VEEG, referral to [facility] clinic. For acute migraine tx: Tylenol prn. Previous acute tx trials- none Tx contraindications- all Triptans d/t CAD. NSAIDs d/t Eliquis use and ASA allergy. For migraine prevention tx: Start Emgality 240mg sc x's 1, then 120mg sc q month. Start Riboflavin 400mg qam Start Mag Ox 400mg qhs. Continue Metoprolol- for HTN Continue Topiramate 100mg qhs. Previous prevention tx trials- denies other tx's. Tx contraindications- caution w/ aimovig or qulipta d/t constipation. would not increase BB further d/t symptomatic asthma. f/u upon review of above and in clinic in 3-4 months or sooner prn. Orders: Orders MR head/brain wo/w con Today R20.2 - Paresthesia of skin, R51.9 - Headache, unspecified, R56.9 - Unspecified convulsions Medications: New galcanezumab-gnlm (Emgality Pen) Loading dose: 120 mg subcu injection x2 in alternate sites (total 240 mg). To be followed by maintenance dose of 120 mg subcu q.month. 240 mg (2 mL) subcut ONCE 2 mL 0RF 30 days magnesium oxide may hold for loose stools 400 mg PO BEDTIME 30 tabs 6RF 30 days riboflavin (vitamin B2) 400 mg PO DAILY 30 tabs 6RF 30 days Coding Level of Care Code Est Pt Level 4 (98002) Diagnoses Seizure R56.9 Worsening headaches R51.9 Paresthesia R20.2 Migraine with aura G43.109
[2023-12-10 09:49] VITALS: BMI 32.9
== END 2023-12-10 11:14 | disposition home or self-care (01) ==
PROVIDERS: PCP Student in an Organized Health Care Education/Training Program; Visit Provider Nurse Practitioner Family
DX: R56.9 Unspecified convulsions (principal); R51.9 Headache, unspecified; R20.2 Paresthesia of skin; G43.109 Migraine with aura, not intractable, without status migrainosus
CPT/HCPCS: 99214

== ENCOUNTER → 2023-12-10 09:23 | Outpatient (BNVA) | payer MEDICAID, SELFPAY | PROVIDERS: PCP Student in an Organized Health Care Education/Training Program; Visit Provider Nurse Practitioner Family | DX: M54.14 Radiculopathy, thoracic region (principal); G43.109 Migraine with aura, not intractable, without status migrainosus; R56.9 Unspecified convulsions; R20.2 Paresthesia of skin; T85.192A Other mechanical complication of implanted electronic neurostimulator of spinal cord electrode (lead), initial encounter; X58.XXXA Exposure to other specified factors, initial encounter; Z86.73 Personal history of transient ischemic attack (TIA), and cerebral infarction without residual deficits; Z86.16 Personal history of COVID-19; Z96.89 Presence of other specified functional implants | CPT/HCPCS: 99212 ==

== ENCOUNTER 2023-12-10 14:58 | Outpatient (AMB) | payer MEDICAID, SELFPAY ==
--- NOTE | 2023-12-10 15:06 | A.OFFVIS_ITS ---
Vital Signs 12/10/23 15:18 Height 5 ft 9 in Weight 223 lb BMI 32.9 BP 134/71 Blood Pressure Location Lt brachial Position Sitting Respiration 17 Pulse 60 Pulse Source Pulse Oximeter Pulse Oximetry (%) 97 Oxygen Delivery Method Room Air Intake Visit Reasons: rib pain Intake Note: Patient comes in for rib pain. Reports pain 03/25. Allergies ibuprofen Allergy (Verified 12/10/23 15:20) Unknown lisinopril Allergy (Verified 12/10/23 15:20) Unknown aspirin Adverse Reaction (Mild, Verified 12/10/23 15:20) mild vaginal bleeding HPI Comments Details: Tamanna is back in my office with complains on the right side of her chest in projection of the approximately 5th or 6th. There is tenderness on palpation in the projection of the presumable rib. There is no rash observable on the skin of the right chest. The patient had spinal cord stimulator cervical position implanted on 10/17/2023. She reported excellent relief of her cervicalgia and pain in the neck as well as relief of pain of her shoulders. She denies any trauma any fall any car accident however she is suffering from seizure disorder and frequent seizures cause her to flex her head backwards and clonic tonic seizures occur. This alone can dislodged the electrodes positioned in her neck and make those electrode wires to band sideways to press on the nerve. I sent her for the x-rays of the thoracic and cervical spine and it appears that she did dislodged her electrodes. It appears that the right-sided electrode in the thoracic spine shifted to the right and now it potentially compresses the right T6 nerve root. I offered this patient to go for spinal cord stimulator revision done by neurosurgeon with placing of the pad of the stimulator into the cervical spine and connecting it to existing electrode however the patient insists on me performing the revision 1st. She promised to go to the neurologist as soon as possible and adjust her medications to correct her seizure disorder and to prevent seizures from happening again. Prior: bilateral acromioclavicular joint injection which was performed on 06/03/2023.. She reports overall 50% of pain improvement in the shoulders. She reports slightly improved mobility of the left upper extremity. However he continues to complain on swelling and pain in bilateral upper shoulders. She is interested in neuromodulation. She is asking me whether she can try the same stimulation in her neck to help her pain in his shoulders as she did for her back. Complains on cervical pain with radiation to the left upper extremity or left side of the thoracic back and even down to the left loin. She also reports associated weakness in the left upper extremity and awkwardness of left upper extremity. She is a subject of multiple interventional procedures. She recently had implantation of spinal cord stimulator to treat her lower back pain. She still reports 80% of pain improvement on spinal cord stimulator. On background of improved lower back pain the thoracic and cervical pain comes to foreground. She was a subject of x-ray of the cervical spine results of which dictated as below. [facility] Medical History Seizure On beta christina at home On anticoagulant therapy SANDEE (obstructive sleep apnea) Morbid obesity with BMI of 45.0-49.9, adult Gout High cholesterol Hypertension COVID-19 Osteoarthritis of knees, bilateral History of gastric ulcer Left inguinal hernia (~2013) Lab test positive for detection of COVID-19 virus (~11/2019) Bleeding disorder Asthma Surgical History History of back surgery S/P partial hysterectomy (11/10/18) H/O umbilical hernia repair (07/25/06) Hx of endoscopy Family History Father Hx of diabetes insipidus Mother No problems noted. Social History Household Members: Family and Children Housing: House Alcohol intake: never Comment: seizure precautions in place Patient Tobacco Use Status: Never used Tobacco e-Cigarette/Vaping Use: Never Used Second Hand Smoke Exposure: No Advance Directives Date on File: 01/24/21 service: No Current occupational status: unemployed Current occupation: right handed Review of Systems Const All systems reviewed & are unremarkable except as noted in HPI and below Physical Exam Vital Signs: Last Vital Signs Pulse 60 12/10/23 15:18 Resp 17 12/10/23 15:18 BP 134/71 12/10/23 15:18 Pulse Ox 97 12/10/23 15:18 Oxygen Delivery Method Room Air 12/10/23 15:18 BMI result Body Mass Index 32.9 Const General: no acute distress and alert Nutritional Appearance: not obese Orientation/consciousness: Other orientation findings ( oriented) HEENT Head: Yes atraumatic Eyes General: appearance normal, both eyes and all related structures Sclerae: sclerae normal EOM: EOMs intact bilaterally Neck Neck: No full ROM Resp Other: There is tenderness on palpation in the projection of the right approximately 6 rib alongside the course of the rib from the posterior thoracic spine all the way to the mid axillary line. Effort & Inspection: normal respiratory effort and no use of accessory muscles Skin General skin exam: other ( warm) Extrem General: No clubbing, No cyanosis and No edema Psych Appearance: grossly normal Mental Status: mental status grossly normal Speech and movement: Normal speech and movement present Affect: normal affect Attitude: cooperative Thought process: Normal thought process present Thought content: Normal thought content present Insight: Good insight present (Psych) Judgement: Good judgement present (Psych) Results Reviewed Results Reviewed: I personally examined the x-rays of the cervical as well as thoracic spine it appears to be that the patient lost the position of her electrodes and dislodged 1 of the electrodes from C2 all the way down to C4-C5 interspace. This appears to be a right-sided electrode and now it in the thoracic spine makes the significant curvature to reach into the lateral gutter and possibly compress the nerve interval. Assessment & Plan Assessment & Plan (1) Radiculopathy, thoracic region: Code(s): M54.14 - Radiculopathy, thoracic region Category: Medical (2) Spinal cord stimulator status: Code(s): Z96.89 - Presence of other specified functional implants Category: Medical (3) Spinal cord stimulator dysfunction: Code(s): T85.192A - Other mechanical complication of implanted electronic neurostimulator of spinal cord electrode (lead), initial encounter Category: Medical Plan Spinal cord stimulator revision needs to be scheduled for this patient. It appears that she dislodged her cervical electrodes. I offered the patient to go for the procedure with neurosurgeon and insert a paddle wire cervical posterior midline incision. However the patient insists on performing the revision of her thoracic spine inserted spinal cord stimulator by me. I explained to the patient that I may fail to establish spinal cord stimulator in previous position and this will result in neurosurgical procedure anyway as the follow-up after my procedure and this will result in 1 extra revision for her. However patient wanted me to perform the procedure, she insists on me doing this procedure. Risks and benefits were explained to the patient. I am planning to open up the incision, disconnect the electrodes, insert the straight stylettes into the electrodes. After that I will dislodged new sheath introducers over the both of the electrodes straightening them up. After that I will advance the electrodes into proper position. I explained to the patient that she needs to go to her neurologist and adjusted doses of the antiseizure medications this is paramount importance because she might have seizure and dislodged the electrodes again. Orders: Orders XR thoracic spine 3V Today M54.14 - Radiculopathy, thoracic region XR cervical spine 3V Today Z96.89 - Presence of other specified functional implants Patient Instructions: I here by testify that I spent 45 minutes in conversation with this patient today as well as examining the x-rays I sent the patient for as well as discussing the results of the x-ray again as well as planning her care and organizing her note. Coding Level of Care Code Est Pt Level 5 (25965) Diagnoses Radiculopathy, thoracic region M54.14 Spinal cord stimulator status Z96.89 Spinal cord stimulator dysfunction T85.192A
[2023-12-10 15:18] VITALS: BP 134/71; PULSE 60; RESP 17; O2SAT 97; BMI 32.9
== END 2023-12-10 15:23 | disposition home or self-care (01) ==
PROVIDERS: PCP Student in an Organized Health Care Education/Training Program; Visit Provider Anesthesiology
DX: M54.14 Radiculopathy, thoracic region (principal); Z96.89 Presence of other specified functional implants; T85.192A Other mechanical complication of implanted electronic neurostimulator of spinal cord electrode (lead), initial encounter
CPT/HCPCS: 99215

== ENCOUNTER 2023-12-10 15:28 | Outpatient (REF) | payer MEDICAID, SELFPAY ==
--- NOTE | ~2023-12-10 | XR_ITS ---
EXAMINATION: XR CERVICAL SPINE XR THORACIC SPINE CLINICAL INFORMATION: Patient states pain in mid back right side. Patient states spinal stimulator implant. Best images obtained per technologist statement. Radiculopathy thoracic region. Patient states pain in mid right back side. Patient states spinal stimulator implant. Best images obtained of the cervical and thoracic spine. COMPARISON: Fluoroscopy images 10/17/2023 and 09/19/2023. Cervical spine x-ray 05/17/2023. Chest x-ray 07/04/2023. MRI lumbar spine October 18, 2019, x-ray lumbar spine 08/09/2019. TECHNIQUE: 3 views of the thoracic spine. 4 views of the cervical spine. FINDINGS: CERVICAL SPINE: Spinal stimulator overlies the posterior aspect of the cervical spine at the level of C3-C4. Bilateral cervical ribs. Straightening of the normal cervical lordosis. Multilevel cervical spondylosis with moderate loss of disc space height at C3-C4, C4-C5 and C5-C6. Limited visualization of C6-C7 due to overlying bone and soft tissue structures. THORACIC SPINE: Electrodes course from the level of the mid back along the posterior aspect of the thoracic spine terminating along the posterior aspect of the cervical spine as detailed above. Electrode pack partially overlies the right upper quadrant. Electrodes extend from the upper abdomen, below the lower limits of the field of view to the approximate mid thoracic spine at T8-T9 level. Dextroscoliosis of the thoracic spine. Moderate thoracic spondylosis. Limited visualization due to overlying bony and soft tissue structures XR/XR cervical spine 3V IMPRESSION: 1. Spinal stimulator electrodes extend from the level of the mid back along the posterior aspect of the thoracic spine terminating along the posterior aspect of the cervical spine at C3-C4. 2. Electrodes extend from the upper abdomen, below the lower limits of the field of view to the approximate mid thoracic spine at T8-T9 level. 3. Moderate multilevel cervical spondylosis. 4. Moderate thoracic spondylosis.
== END 2023-12-10 15:29 | disposition home or self-care (01) ==
LOC: HO.XRAY 15:28
PROVIDERS: PCP Student in an Organized Health Care Education/Training Program; Visit Provider Anesthesiology
DX: M54.14 Radiculopathy, thoracic region (principal); Z96.89 Presence of other specified functional implants
CPT/HCPCS: 72040; 72072

== ENCOUNTER 2023-12-19 05:53 | Day surgery (SDC) | payer MEDICAID, SELFPAY ==
[2023-12-16 11:37] VITALS: BP 130/67; PULSE 64; RESP 20; O2SAT 96; BMI 48.6
[2023-12-19] VITALS (11 sets, daily range): BP systolic 106–134; BP diastolic 50–84; PULSE 62–82; RESP 16–20; TEMP 36.4–36.8; O2SAT 90–98; BMI 48.1
--- NOTE | ~2023-12-19 | FL_ITS ---
EXAMINATION: XR FLUOROSCOPY WITH IMAGES CLINICAL INFORMATION: Cervical revision. COMPARISON: Cervical spine radiographs 12/10/2023. TECHNIQUE: Fluoroscopy Supervised By: Dr. Sukhi Soriano. Fluoroscopy Time: 1 minute 15 seconds. Cumulative Dose: 23.692 mGy. DAP: 6.1646 Gy-cm2. Images: 3. FINDINGS: Intraoperative fluoroscopy and spot films were performed during a procedure in the OR. Spinal stimulation leads are seen. Superior aspect of the leads difficult to ascertain from the included coned images. On the prior study, top of the leads was near the bottom of the L3 vertebral body. Please correlate with Dr. Sukhi Soriano's report for complete details. FL/FL guidance in OR IMPRESSION: Intraoperative fluoroscopy and spot films were obtained. Please see Dr. Sukhi Soriano's report for complete details.
--- NOTE | 2023-12-19 06:38 | MHC.SHP ---
Pre-Procedural Eval Section A - 24 Hr Update-Section A only Date of Service: 12/19/23 The patient is an INPATIENT: No Changes since office visit: Yes Patient answered all questions The patient has been examined within 24 hours of the surgical procedure. The History & Physical has been completed within 30 days and I have reviewed it.: No Section B - Complete if H&P > 30 days Chief Complaint: mechanical complication of implanted electronic Details of Present Illness: Cervicalgia cervical chronic pain syndrome Relevant Family History (Specify if Yes): No Relevant Social History: None Present Medications: see Short Stay Collaborative assessment Medical History: No relevant PMH History of Previous Operations: No relevant previous surgery Allergies: Allergies Allergy/AdvReac Type Severity Reaction Status Date / Time ibuprofen Allergy Unknown Verified 12/10/23 15:20 lisinopril Allergy Unknown Verified 12/10/23 15:20 aspirin AdvReac Mild mild Verified 12/10/23 15:20 vaginal bleeding Review of Systems Sugical H&P ROS: Negative: Hem-Onc, Allergic/Immunologic, Genitourinary, Integumentary, Endocrine and Eyes/Ears/Nose/Throat and Yes, Specify: Constitution (Morbid obesity), Cardiovascular (Hypertension benign), Respiratory (SANDEE), Neurological (Seizure disorder), Psychiatric (Depression), Gastrointestinal (Dysphagia) and Musculoskeletal (Spondylosis, disc degeneration,) Exam Surgical H&P Exam: Normal: HEENT, Normal: Heart, Normal: Lungs, Normal: Extremities, Normal: Skin and Normal: Neurological and Significant Findings: Abdomen (Enlarged 2 to i/a & s/q fat) Plan Diagnosis/Plan: Unchanged I have reviewed the history and physical and performed a pertinent physical examination on my patient. No changes have occurred unless specified. Time Spent With Patient Time: Total time managing care of this patient today ____ minutes.
[2023-12-19 06:46] LABS: INTERNATIONAL NORM RATIO 1.1 (0.9-1.1)
[2023-12-19] MEDS: Lactated Ringers 1,000 ML 50 ML IVCONT (06:53)
--- NOTE | 2023-12-19 07:09 | HO.ANESPROP2 ---
[facility] Active Problems Active Problems: All Active Problems Migraine with aura (Acute) Spinal cord stimulator dysfunction (Acute) Spinal cord stimulator status (Acute) Radiculopathy, thoracic region (Acute) Paresthesia (Acute) Worsening headaches (Acute) Arthritis of both acromioclavicular joints (Acute) Arthritis of left acromioclavicular joint (Acute) Radiculopathy, cervical (Acute) Cervical spondylosis (Acute) DDD (degenerative disc disease), cervical (Acute) Left elbow pain (Acute) Left shoulder pain (Acute) Status post insertion of spinal cord stimulator (Acute) Trigger finger, left ring finger (Acute) Cluneal neuropathy (Acute) Mononeuropathy, unspecified (Acute) Osteoarthritis, hand (Acute) Environmental allergies (Acute) Asthma (Acute) Spondylosis of lumbar joint (Acute) Osteoarthritis of knees, bilateral (Acute) Chronic pain syndrome (Acute) Bilateral knee pain (Acute) Headache (Acute) Carotid stenosis, bilateral (Acute) Spondylosis of lumbar region without myelopathy or radiculopathy (Acute) Abdominal bloating (Acute) Dysphagia, pharyngoesophageal phase (Acute) GERD with esophagitis (Acute) Anemia (Acute) Depression (Acute) Arthritis of knee (Acute) HTN (hypertension), benign (Acute) Seizure (Acute) SANDEE (obstructive sleep apnea) (Acute) Osteoarthritis of knees, bilateral (Acute) Past Medical History Medical History Arthritis Peptic ulcer GERD (gastroesophageal reflux disease) CVA (cerebral vascular accident) SOB (shortness of breath) Atrial fibrillation Seizure On beta christina at home On anticoagulant therapy SANDEE (obstructive sleep apnea) Morbid obesity with BMI of 45.0-49.9, adult Gout High cholesterol Hypertension COVID-19 Osteoarthritis of knees, bilateral History of gastric ulcer Left inguinal hernia (~2013) Lab test positive for detection of COVID-19 virus (~11/2019) Bleeding disorder Asthma Family History Family History Father Hx of diabetes insipidus Mother No problems noted. Family history of problems with anesthesia: No Surgical History Surgical History History of back surgery S/P partial hysterectomy (05/28/19) H/O umbilical hernia repair (07/25/06) Hx of endoscopy History of Problems with Anesthesia: No Social History Social History Household Members: Family and Children Housing: House Are you a primary point of care specialist to a significant other at home: No Do you presently have visiting nurse or other home services: No Alcohol intake: never Comment: seizure precautions in place Patient Tobacco Use Status: Never used Tobacco e-Cigarette/Vaping Use: Never Used Second Hand Smoke Exposure: No Use of substances other than those prescribed or required for medical reasons: No Have you been hit, kicked, punched, or otherwise hurt by someone within the past year? If so, by whom?: No Are you DNR?: No Advance Directives: No Advance Directives Information Provided: Yes Advance Directives on File: No Advance Directives Date on File: 01/24/21 Recently lost weight without trying: No Eating poorly because of decreased appetite: No Nutrition Risks: No Nutritional Risk Patient : No : No Poor oral hygiene: No service: No Current occupational status: unemployed Current occupation: right handed Meds Allergies Allergy/AdvReac Type Severity Reaction Status Date / Time ibuprofen Allergy Unknown Verified 12/10/23 15:20 lisinopril Allergy Unknown Verified 12/10/23 15:20 aspirin AdvReac Mild mild Verified 12/10/23 15:20 vaginal bleeding Active Medications: Current Medications Lactated Ringer's (Lr) 1,000 mls @ 50 mls/hr IVCONT .Q20H ISMA Last Admin: 12/19/23 06:53 Dose: 50 mls/hr Home Medications ?Medication ?Instructions ?Recorded ?Confirmed ?Last Taken ?Type albuterol sulfate 90 mcg/actuation 2 puff inhalation Q6H PRN 04/27/20 12/16/23 12/19/23 History aerosol inhaler (ProAir HFA) Shortness Of Breath cetirizine 10 mg tablet 10 mg PO BEDTIME 04/27/20 12/16/23 10/04/22 History docusate sodium 100 mg capsule 100 mg PO BID 04/27/20 12/16/23 12/27/22 History (DOK) duloxetine 30 mg capsule,delayed 30 mg PO BEDTIME 04/27/20 12/16/23 10/04/22 History release metoprolol tartrate 50 mg tablet 50 mg PO BID 04/27/20 12/16/23 12/19/23 History montelukast 10 mg tablet 10 mg PO BEDTIME 04/27/20 12/16/23 10/04/22 History clonidine HCl 0.1 mg tablet 0.1 mg PO BID 06/05/20 12/16/23 12/19/23 History apixaban 5 mg tablet (Eliquis) 5 mg PO BID 06/28/20 12/16/23 12/13/23 History losartan 100 mg tablet 100 mg PO DAILY 06/28/20 12/16/23 12/27/22 History furosemide 20 mg tablet 20 mg PO BID 12/25/21 12/16/23 12/27/22 History topiramate 100 mg tablet 100 mg PO BEDTIME 12/25/21 12/16/23 10/04/22 History ergocalciferol (vitamin D2) 1,250 1,250 mcg PO FR@0900 01/08/22 12/16/23 12/27/22 History mcg (50,000 unit) capsule ferrous sulfate 325 mg (65 mg 325 mg PO DAILY 01/08/22 12/16/23 10/05/22 09:00 History iron) tablet (FeroSul) amlodipine 5 mg tablet 5 mg PO DAILY 09/24/22 12/16/23 12/19/23 History ascorbic acid (vitamin C) 500 mg 500 mg PO DAILY 10/06/22 12/16/23 10/05/22 09:00 History capsule,extended release omeprazole 40 mg capsule,delayed 40 mg PO BID 01/09/23 12/16/23 12/19/23 History release cyanocobalamin (vitamin B-12) 500 500 mcg PO DAILY 12/16/23 12/16/23 Unknown History mcg tablet (Vitamin B-12) fluticasone furoate 200 2 inh inhalation DAILY 12/16/23 12/16/23 12/19/23 History mcg-vilanterol 25 mcg/dose inhalation powder (Breo Ellipta) rosuvastatin 20 mg tablet 20 mg PO DAILY 12/16/23 12/16/23 12/19/23 History Exam Height,Weight and Vital Signs: Height 5 ft 9 in Weight 147.644 kg Last Vital Signs Temp 98.1 F 12/19/23 06:29 Pulse 62 12/19/23 06:29 Resp 16 12/19/23 06:29 BP 129/76 12/19/23 06:29 Pulse Ox 97 12/19/23 06:29 O2 Del Method Room Air 12/19/23 06:29 Pertinent Lab Results Pertinent Lab Results: Laboratory Tests 12/19/23 06:34 PT 13.0 INR 1.1 Airway Mallampati Class: III TM Dist: >3cm Neck ROM: Limited Loose/Missing/Broken Teeth: No Heart: RRR Lungs: CTA Assessment and Plan Assessment Anesthesia Assessment: Anesthesia Plan Discussed and Chart Reviewed Final Anesthetic Review Family History of Problems with Anesthesia: No History of Problems with Anesthesia: No ASA Class: III Final Preanesthetic Review: Meds/Allgs Chart Reviewed, Consent Obtained/Reviewed and Anes Risks/Benef Reviewed Patient Risk: Intermediate Procedure Risk: Intermediate Anesthetic Plan Anesthetic Plan: GA Disposition: Standard PACU
[2023-12-19 09:12] LABS: MRSA Nasal PCR NEGATIVE (Negative); SA Nasal PCR NEGATIVE (Negative)
--- NOTE | 2023-12-19 12:19 | P.BOP_ITS ---
Brief Operative Note Date of Service: 10/17/23 Pre-op diagnosis: Chronic pain syndrome, chronic cervical pain, intractable cervical pain syndrome, spondylosis of cervical spine. Post-op diagnosis: same Procedure: Implantation of the Nevro spinal cord stimulator cervical position. Implants: Omnia battery and 2 epidural leads Surgeon: Sukhi Soriano MD Anesthesia: GETA Was an Commercial Door Installer used for this Procedure?: No Estimated blood loss (mL): 20 Pathology: none sent Condition: stable Disposition: PACU
[2023-12-19] MEDS: fentaNYL citrate/PF 100 MCG/2 ML VIAL 25 MCG IVPUSH ×3 (12:20→12:38)
--- NOTE | 2023-12-19 12:20 | W.PM.OPN ---
Operative Note Operative Note Date of Service: 12/27/22 Narrative: Tamanna is Very peasant 52 y.o. female who came to the OR today today for revision of spinal cord stimulator for the treatment of chronic pain syndrome, spondylosis of lumbar spine, disc degeneration lumbar. She had successful implantation of the spinal cord stimulator Nevro 3 months ago, however she had seizure episode and it appears to be that she dislodged her epidural leads down to the cervical epidural space in the projection of C3-C4 interval. One of the epidural leads most likely was deviating into the right-sided gutter of the spinal canal and patient was complaining on pain in approximate projection of T5 spinal nerve root. The decision was made to take the patient for the revision. Preoperatively patient received cefazolin 3 g approximately 30 minutes before the procedure. After obtaining informed consent the patient was brought to the operating room, she was supine on the stretcher [employer] monitors were applied and general anesthesia was induced with endotracheal intubation. After that patient was transferred to the operating table prone all pressure points were protected. Time-out was performed delineating correct site, side, the nature of the procedure, patient's allergy, preoperative antibiotic if needed. All operating room staff was participating in OR time-out procedure. Patient's entire back was prepped with ChloraPrep twice and draped with full body fenestrated drape and ioban film. The previous scars the projection of the thoracic spine as well as at the site of the pocket in the right loin were infiltrated with the mixture of lidocaine 2% and ropivacaine 0.5%. After that number 10 Blade scalpel was used to perform horizontal incision alongside the previous scar in the right loin where the pocket for the SCS battery was located. The incision was widened and deepened using sharp dissection and after that hemostasis was obtained using bipolar electrocautery. The battery was found in the pocket, anchoring sutures were severed, and the battery was delivered to the level of the skin. The connective screws were loosened and the leads were disconnected from the body of the battery. The battery was delivered on operating table. The wound was irrigated and packed with 4x4s soaked in normal saline mixed with vancomycin. After that attention was concentrated on midline incision where alongside the previous car 11 cm incision was made. Again sharp and dull dissection was employed and anchoring devices were detected in the wound. They were freed from surrounding tissues and anchoring sutures were severed. The distal portions of the epidural leads were dislodged from the loin pocket wound to the central wound. After that the anchoring devices were removed from the both leads. The epidural leads were disconnected from extension devices. After that straight stiff stylets were inserted into both epidural leads and blue sheath introducer was inserted on each of the epidural leads until the tips of the blue she is introducers were entering approximately T3-T4 position. After that epidural leads which were dislodged as described above were advanced as high as possible in the cervical epidural space all the way to the top of C2 vertebral body below the level of the odontoid process and top of C3 vertebral body. After that position of the epidural leads was demonstrated in the posterior epidural space, the stylets were removed from the epidural leads, the blue sheath introducers were removed, and two anchoring devices were dislodged upon the epidural leads until the level of the prevertebral fascia. Both of the epidural leads were fasting to the prevertebral fascia using 0-0 Tycron sutures. After that the epidural leads were connected to the extensions, we had significant difficulty with connecting of the epidural leads to the extensions but finally we were able to perform appropriate connection of all the epidural leads short of 1 epidural contact on the most superior position electrode. After that epidural leads and extensions were tunneled from the midline incision to the pocket loin wound they were connected to Nevro omnia battery anchoring sutures were applied to most superior and most inferior corners of the wound and anchoring sutures were tied. The wounds were irrigated again with normal saline containing vancomycin after that the battery was dislodged into the right-sided loin pocket wound and anchoring sutures were tied. After that both wounds were irrigated again and they were closed using 0-0 Polysorb sutures. The skin was approximated using 2-0 Polysorb sutures. After that jarad were applied to the skin level. Dry sterile dressings were affixed the skin using Medipore tape. The patient was given the soft cervical collar as well as abdominal binder. She was awakened extubated and transferred stable to PACU.
[2023-12-19] MEDS: oxyCODONE HCl Immed Release 5 MG TABLET PO (12:55)
== END 2023-12-19 14:21 | disposition home or self-care (01) ==
PROVIDERS: Registered Nurse Emergency; PCP Student in an Organized Health Care Education/Training Program; Visit Provider Anesthesiology
PROC: (CPT 63685; principal; 2023-12-19 07:30)
DX: T85.122A Displacement of implanted electronic neurostimulator of spinal cord electrode (lead), initial encounter (principal); M54.2 Cervicalgia; G89.4 Chronic pain syndrome; M54.14 Radiculopathy, thoracic region; M47.892 Other spondylosis, cervical region; Z96.89 Presence of other specified functional implants; G40.909 Epilepsy, unspecified, not intractable, without status epilepticus; G47.33 Obstructive sleep apnea (adult) (pediatric); I10 Essential (primary) hypertension; E66.01 Morbid (severe) obesity due to excess calories; Z68.32 Body mass index [BMI] 32.0-32.9, adult; Z79.01 Long term (current) use of anticoagulants; Z79.899 Other long term (current) drug therapy; Z88.4 Allergy status to anesthetic agent; Z88.8 Allergy status to other drugs, medicaments and biological substances
CPT/HCPCS: 63685; 63650 ×2; 36415; 85610; 87640; 87641; C1883; C1889; J0690; J1100; J1920; J2250; J2405; J2704; J2795; J3010; J3370

== ENCOUNTER → 2023-12-19 05:53 | Outpatient (BNV) | payer MEDICAID, SELFPAY | PROVIDERS: PCP Student in an Organized Health Care Education/Training Program; Visit Provider Anesthesiology | DX: G89.4 Chronic pain syndrome (principal); M54.2 Cervicalgia; M47.892 Other spondylosis, cervical region | CPT/HCPCS: 63650; 63685 ==

== ENCOUNTER 2023-12-24 08:46 | Outpatient (AMB) | payer MEDICAID, SELFPAY ==
--- NOTE | 2023-12-24 08:59 | A.OFFVIS_ITS ---
Vital Signs 12/24/23 09:21 Height 5 ft 9 in Weight 325 lb BMI 48.0 BP 131/69 Blood Pressure Location Lt brachial Position Sitting Respiration 16 Pulse 67 Pulse Source Pulse Oximeter Pulse Oximetry (%) 97 Oxygen Delivery Method Room Air Intake Visit Reasons: S/p Nevro SCS Revision 12/19/23 Intake Note: Patient comes in for Nevro SCS revision post-op. Reports pain 12/23. Allergies bacitracin Allergy (Mild, Verified 12/24/23 11:50) Rash ibuprofen Allergy (Verified 12/24/23 09:23) Unknown lisinopril Allergy (Verified 12/24/23 09:23) Unknown aspirin Adverse Reaction (Mild, Verified 12/24/23 09:23) mild vaginal bleeding HPI Comments Details: Tamanna is back in my office after the revision of the cervical positioned spinal cord stimulator. Unfortunately the most superior contact of the 1 of the electrodes repositioned in her neck did not go back online. We had hope that it will be reconnected after the procedure. We today interrogated the device and it continues to show 1 electrode with high impedance. This electrode is positioned on the top of 1 of the leads and does not interfere with patient stimulation. Patient will continue to receive good stimulation from this revised electrodes however now she will not be able to go for any MRI procedures. Patient understood, I explained the patient that in case of future diagnostic images she can go for CT scan with and without contrast, positron emission tomography, ultrasound examination. However if MRI is 100% necessary the removal of the device would be required with possible replacement of the device with neurosurgical implanted paddle electrode in her C2-C3 position. She does not complain on pain in the rib area. She went for complain on pain in the projection of 5th rib, it probably was because patient had seizure after implantation of spinal cord stimulator and dislodged the electrode down the spinal canal dislodged electrode looped into the lateral gutter and probably affected her rib 5 nerve root. With this complaint she went for the revision of the SCS Nevro. The dressing change today: The both incisions appear to be dry, there is no redness, there is no swelling, minimal tenderness on palpation in surrounding the incisions areas. Dry dressings were applied. The patient is probably allergic to bacitracin ointment cause last time after the surgery on application of the ointment she had redness on the skin.. Prior: bilateral acromioclavicular joint injection which was performed on 06/03/2023.. She reports overall 50% of pain improvement in the shoulders. She reports slightly improved mobility of the left upper extremity. However he continues to complain on swelling and pain in bilateral upper shoulders. She is interested in neuromodulation. She is asking me whether she can try the same stimulation in her neck to help her pain in his shoulders as she did for her back. Complains on cervical pain with radiation to the left upper extremity or left side of the thoracic back and even down to the left loin. She also reports as sociated weakness in the left upper extremity and awkwardness of left upper extremity. She is a subject of multiple interventional procedures. She recently had implantation of spinal cord stimulator to treat her lower back pain. She still reports 80% of pain improvement on spinal cord stimulator. On background of improved lower back pain the thoracic and cervical pain comes to foreground. She was a subject of x-ray of the cervical spine results of which dictated as below. [facility] Medical History Arthritis Peptic ulcer GERD (gastroesophageal reflux disease) CVA (cerebral vascular accident) SOB (shortness of breath) Atrial fibrillation Seizure On beta christina at home On anticoagulant therapy SANDEE (obstructive sleep apnea) Morbid obesity with BMI of 45.0-49.9, adult Gout High cholesterol Hypertension COVID-19 Osteoarthritis of knees, bilateral History of gastric ulcer Left inguinal hernia (~2013) Lab test positive for detection of COVID-19 virus (~11/2019) Bleeding disorder Asthma Surgical History History of back surgery S/P partial hysterectomy (11/10/18) H/O umbilical hernia repair (07/25/06) Hx of endoscopy Family History Father Hx of diabetes insipidus Mother No problems noted. Social History Household Members: Family and Children Housing: House Are you a primary healthcare management consultant to a significant other at home: No Do you presently have visiting nurse or other home services: No Alcohol intake: never Comment: counts correct Patient Tobacco Use Status: Never used Tobacco e-Cigarette/Vaping Use: Never Used Second Hand Smoke Exposure: No Advance Directives Date on File: 01/24/21 service: No Current occupational status: unemployed Current occupation: right handed Review of Systems Const All systems reviewed & are unremarkable except as noted in HPI and below Physical Exam Vital Signs: Last Vital Signs Pulse 67 12/24/23 09:21 Resp 16 12/24/23 09:21 BP 131/69 12/24/23 09:21 Pulse Ox 97 12/24/23 09:21 Oxygen Delivery Method Room Air 12/24/23 09:21 BMI result Body Mass Index 48.0 Const General: no acute distress and alert Nutritional Appearance: not obese Orientation/consciousness: Other orientation findings ( oriented) HEENT Head: Yes atraumatic Eyes General: appearance normal, both eyes and all related structures Sclerae: sclerae normal EOM: EOMs intact bilaterally Neck Neck: No full ROM Resp Other: There is tenderness on palpation in the projection of the right approximately 6 rib alongside the course of the rib from the posterior thoracic spine all the way to the mid axillary line. Effort & Inspection: normal respiratory effort and no use of accessory muscles Skin General skin exam: other ( warm) Extrem General: No clubbing, No cyanosis and No edema Psych Appearance: grossly normal Mental Status: mental status grossly normal Speech and movement: Normal speech and movement present Affect: normal affect Attitude: cooperative Thought process: Normal thought process present Thought content: Normal thought content present Insight: Good insight present (Psych) Judgement: Good judgement present (Psych) Assessment & Plan Assessment & Plan (1) Radiculopathy, thoracic region: Code(s): M54.14 - Radiculopathy, thoracic region Category: Medical (2) Spinal cord stimulator status: Code(s): Z96.89 - Presence of other specified functional implants Category: Medical (3) Spinal cord stimulator dysfunction: Code(s): T85.192A - Other mechanical complication of implanted electronic neurostimulator of spinal cord electrode (lead), initial encounter Category: Medical Plan Spinal cord stimulator revision was performed on 12/19/2023. She is doing okay. The wounds are healing properly. She starts to feel stimulation. The limitation of the stimulation was explained to the patient. During the procedure will lost contact with 1 most superior electrode. It does not interfere with our ability to provide good stimulation for the patient. However it limits her ability to go for the MRI she will not be able to do so. All of this was carefully explained to the patient. Patient expressed understanding. Patient Instructions: I here by testify that I spent 32 minutes in conversation with this patient as well as planning her care and organizing this note. Coding Level of Care Code Est Pt Level 4 (12839) Diagnoses Radiculopathy, thoracic region M54.14 Spinal cord stimulator status Z96.89 Spinal cord stimulator dysfunction T85.192A
[2023-12-24 09:21] VITALS: BP 131/69; PULSE 67; RESP 16; O2SAT 97; BMI 48.0
== END 2023-12-24 09:54 | disposition home or self-care (01) ==
PROVIDERS: PCP Student in an Organized Health Care Education/Training Program; Visit Provider Anesthesiology
DX: M54.14 Radiculopathy, thoracic region (principal); Z96.89 Presence of other specified functional implants; T85.192A Other mechanical complication of implanted electronic neurostimulator of spinal cord electrode (lead), initial encounter
CPT/HCPCS: 99024

== ENCOUNTER → 2023-12-24 08:46 | Outpatient (BNVA) | payer MEDICAID, SELFPAY | PROVIDERS: PCP Student in an Organized Health Care Education/Training Program; Visit Provider Anesthesiology | DX: M54.14 Radiculopathy, thoracic region (principal); T85.192A Other mechanical complication of implanted electronic neurostimulator of spinal cord electrode (lead), initial encounter; Z96.89 Presence of other specified functional implants | CPT/HCPCS: 99212 ==

== ENCOUNTER 2024-01-01 08:21 | Outpatient (AMB) | payer MEDICAID, SELFPAY ==
--- NOTE | 2024-01-01 08:24 | A.OFFVIS_ITS ---
Vital Signs 01/01/24 09:33 Height 5 ft 9 in Weight 325 lb BMI 48.0 BP 148/80 H Blood Pressure Location Lt brachial Position Sitting Respiration 16 Pulse 65 Pulse Source Pulse Oximeter Pulse Oximetry (%) 99 Oxygen Delivery Method Room Air Intake Visit Reasons: S/p Nevro SCS Revision (2nd Visit) 12/19/23 Intake Note: Patient comes in for Nevro SCS 2nd visit staple removal. Reports pain 8/10. Allergies bacitracin Allergy (Mild, Verified 12/24/23 11:50) Rash ibuprofen Allergy (Verified 12/24/23 09:23) Unknown lisinopril Allergy (Verified 12/24/23 09:23) Unknown aspirin Adverse Reaction (Mild, Verified 12/24/23 09:23) mild vaginal bleeding HPI Comments Details: Tamanna is back in my office after the revision of the cervical positioned spinal cord stimulator. The dressing was changed today. The wounds were washed with ChloraPrep and eusebia were removed, after that dry dressings were applied. Patient reports very good pain relief from stimulation she reports stiffness in bilateral shoulders. Nikhil the Nev[employer] employment program representative came today and put machine on full power. I recommend her to wait for the machine to go on full power and have wash in time interval for the next 3-4 day. Only after that we will be able to see how the machine helps the stiffness in bilateral shoulders. I do not want to morales into prescribe muscle relaxants as the patient requests me to perform just yet. She does not complain on pain in the rib area. She went for complain on pain in the projection of 5th rib, it probably was because patient had seizure after implantation of spinal cord stimulator and dislodged the electrode down the spinal canal dislodged electrode looped into the lateral gutter and probably affected her rib 5 nerve root. With this complaint she went for the revision of the SCS Nevro. The dressing change today: The both incisions appear to be dry, there is no redness, there is no swelling, minimal tenderness on palpation in surrounding the incisions areas. Dry dressings were applied. The patient is probably a llergic to bacitracin ointment cause last time after the surgery on application of the ointment she had redness on the skin.. Prior: bilateral acromioclavicular joint injection which was performed on 06/03/2023.. She reports overall 50% of pain improvement in the shoulders. She reports slightly improved mobility of the left upper extremity. However he continues to complain on swelling and pain in bilateral upper shoulders. She is interested in neuromodulation. She is asking me whether she can try the same stimulation in her neck to help her pain in his shoulders as she did for her back. Complains on cervical pain with radiation to the left upper extremity or left side of the thoracic back and even down to the left loin. She also reports associated weakness in the left upper extremity and awkwardness of left upper extremity. She is a subject of multiple interventional procedures. She recently had implantation of spinal cord stimulator to treat her lower back pain. She still reports 80% of pain improvement on spinal cord stimulator. On background of improved lower back pain the thoracic and cervical pain comes to foreground. She was a subject of x-ray of the cervical spine results of which dictated as below. [facility] Medical History Arthritis Peptic ulcer GERD (gastroesophageal reflux disease) CVA (cerebral vascular accident) SOB (shortness of breath) Atrial fibrillation Seizure On beta christina at home On anticoagulant therapy SANDEE (obstructive sleep apnea) Morbid obesity with BMI of 45.0-49.9, adult Gout High cholesterol Hypertension COVID-19 Osteoarthritis of knees, bilateral History of gastric ulcer Left inguinal hernia (~2013) Lab test positive for detection of COVID-19 virus (~11/2019) Bleeding disorder Asthma Surgical History History of back surgery S/P partial hysterectomy (11/10/18) H/O umbilical hernia repair (07/25/06) Hx of endoscopy Family History Father Hx of diabetes insipidus Mother No problems noted. Social History Household Members: Family and Children Housing: House Are you a primary eye care professional to a significant other at home: No Do you presently have visiting nurse or other home services: No Alcohol intake: never Comment: counts correct Patient Tobacco Use Status: Never used Tobacco e-Cigarette/Vaping Use: Never Used Second Hand Smoke Exposure: No Advance Directives Date on File: 08/11/21 service: No Current occupational status: unemployed Current occupation: right handed Review of Systems Const All systems reviewed & are unremarkable except as noted in HPI and below Physical Exam Vital Signs: Last Vital Signs Pulse 65 01/01/24 09:33 Resp 16 01/01/24 09:33 BP 148/80 H 01/01/24 09:33 Pulse Ox 99 01/01/24 09:33 Oxygen Delivery Method Room Air 01/01/24 09:33 BMI result Body Mass Index 48.0 Const General: no acute distress and alert Nutritional Appearance: not obese Orientation/consciousness: Other orientation findings ( oriented) HEENT Head: Yes atraumatic Eyes General: appearance normal, both eyes and all related structures Sclerae: sclerae normal EOM: EOMs intact bilaterally Neck Neck: No full ROM Resp Other: There is tenderness on palpation in the projection of the right approximately 6 rib alongside the course of the rib from the posterior thoracic spine all the way to the mid axillary line. Effort & Inspection: normal respiratory effort and no use of accessory muscles Skin General skin exam: other ( warm) Extrem General: No clubbing, No cyanosis and No edema Psych Appearance: grossly normal Mental Status: mental status grossly normal Speech and movement: Normal speech and movement present Affect: normal affect Attitude: cooperative Thought process: Normal thought process present Thought content: Normal thought content present Insight: Good insight present (Psych) Judgement: Good judgement present (Psych) Assessment & Plan Assessment & Plan (1) Radiculopathy, thoracic region: Code(s): M54.14 - Radiculopathy, thoracic region Category: Medical (2) Spinal cord stimulator status: Code(s): Z96.89 - Presence of other specified functional implants Category: Medical (3) Spinal cord stimulator dysfunction: Code(s): T85.192A - Other mechanical complication of implanted electronic neurostimulator of spinal cord electrode (lead), initial encounter Category: Medical Plan Spinal cord stimulator revision was performed on 12/19/2023. She is doing okay. Eusebia removed today. The wounds are healing properly although some redness remains around the thoracic area. I told the patient to continue antibiotics. Nikhil Moyer employment program representative put the spinal cord stimulator today to the full power. I will see how it works she reports stiffness in bilateral shoulders, however it may go away after washing time interval of machine being on full power. I also recommended her to keep her antiseizure medications adjusted as it is recommended by her neurologist to avoid new seizures, she understood my concerns and expressed that she will be compliant with antiseizure medications. She was reminded about activities limitations and hygiene adjustment. She expressed understanding, she continues to wear abdominal binder and cervical soft collar Patient Instructions: I here by testify that I spent 35 minutes in conversation with this patient as well as planning her care and organizing this note. Coding Level of Care Code Est Pt Level 4 (04686) Diagnoses Radiculopathy, thoracic region M54.14 Spinal cord stimulator status Z96.89 Spinal cord stimulator dysfunction T85.192A
[2024-01-01 09:33] VITALS: BP 148/80; PULSE 65; RESP 16; O2SAT 99; BMI 48.0
== END 2024-01-01 09:18 | disposition home or self-care (01) ==
PROVIDERS: PCP Student in an Organized Health Care Education/Training Program; Visit Provider Anesthesiology
DX: M54.14 Radiculopathy, thoracic region (principal); Z96.89 Presence of other specified functional implants; T85.192A Other mechanical complication of implanted electronic neurostimulator of spinal cord electrode (lead), initial encounter
CPT/HCPCS: 99214

== ENCOUNTER → 2024-01-01 08:21 | Outpatient (BNVA) | payer MEDICAID, SELFPAY | PROVIDERS: PCP Student in an Organized Health Care Education/Training Program; Visit Provider Anesthesiology | DX: M54.14 Radiculopathy, thoracic region (principal); T85.192D Other mechanical complication of implanted electronic neurostimulator of spinal cord electrode (lead), subsequent encounter; X58.XXXD Exposure to other specified factors, subsequent encounter; Z98.890 Other specified postprocedural states | CPT/HCPCS: 99212 ==

== ENCOUNTER 2024-01-10 23:01 | Emergency (ER) | payer MEDICAID, SELFPAY ==
--- NOTE | ~2024-01-10 | CT_ITS ---
EXAMINATION: CT ABDOMEN AND PELVIS WITH CONTRAST CLINICAL INFORMATION: Right-sided abdominal pain and diarrhea. COMPARISON: CT abdomen pelvis October 05, 2022 TECHNIQUE: Multidetector volumetric images were obtained from the superior aspect of the liver through the pubic symphysis following administration 85 mL of Omnipaque 350 intravenous contrast. Sagittal and coronal reformatted images were obtained on the technologist's workstation. Today's examination is limited secondary to patient body habitus. This CT examination was performed using dose optimization techniques as appropriate, variously including the following: *Automated exposure control *Adjustment of mA and/or kV according to patient size (this includes techniques or standardized protocols for targeted exams where dose is matched to indication/reason for exam; i.e. extremities or head) *Use of iterative reconstruction technique DLP: 1110 mGy-cm FINDINGS: Visualized lung bases are well aerated. Stable 4 mm pulmonary nodule the lateral left lung base. The liver is mildly enlarged and demonstrates diffusely decreased attenuation suggesting hepatic steatosis. The gallbladder is normal in appearance. The pancreas, spleen and adrenal glands are unremarkable. Symmetrically sized kidneys. There are a few small nonobstructing calculi within each kidney. There is no hydronephrosis of either kidney. Left renal cysts again identified. The stomach is relatively decompressed. Normal caliber loops of small and large bowel. Mild stool burden throughout the majority the colon. Normal appendix. Mild colonic diverticulosis without CT evidence to suggest active diverticulitis. Normal caliber abdominal aorta. No retroperitoneal lymphadenopathy. The bladder is normal in appearance. Unremarkable CT appearance of the uterus. No gross free pelvic fluid. No inguinal lymphadenopathy. Mild degenerative changes of the spine. Spinal stimulator devices noted. CT/CT abdomen pelvis w IV con IMPRESSION: 1. Mild hepatomegaly with diffusely decreased liver attenuation suggesting hepatic steatosis. Correlation with liver enzymes recommended. 2. Mild colonic diverticulosis without CT evidence to suggest active diverticulitis. 3. Tiny bilateral nonobstructing renal calculi. No hydronephrosis. Fleischner guidelines were followed.
[2024-01-10 23:06] VITALS: BP 148/90; PULSE 83; RESP 20; TEMP 36.7; O2SAT 97; BMI 46.5
[2024-01-10 23:34] LABS: MANUAL DIFF FLAG NO
[2024-01-10 23:42] LABS: Basophils Absolute Auto 0.1 X10*3/uL (0.0-0.2); Basophils Percent Auto 0.4 % (0-2); Eosinophils Absolute Auto 0.3 X10*3/uL (0.0-0.4); Eosinophils Percent Auto 2.4 % (0-4); Hematocrit 41.5 % (37.0-47.0); Hemoglobin 13.5 g/dl (12.0-16.0); Imm Gran Abs Auto 0.04 X10*3/uL (0.00-0.03); Imm Gran Pct Auto 0.3 % (0.0-0.4); Lymphocytes Absolute Auto 3.5 X10*3/uL (1.2-4.9); Lymphocytes Percent Auto 26.9 % (20-40); Mean Corpuscular HGB Conc 32.5 g/dl (31.0-35.0); Mean Corpuscular Hemoglobin 28.7 pg (27.0-33.0); Mean Corpuscular Volume 88.1 fL (80.0-98.0); Mean Platelet Volume 10.4 fL (9.4-12.3); Monocytes Absolute Auto 0.7 X10*3/uL (0.1-1.2); Monocytes Percent Auto 5.6 % (2-11); Neutrophils Absolute Auto 8.5 x10*3/uL (2.0-8.3); Neutrophils Percent Auto 64.4 % (45-73); Platelet Count 435 X10*3/uL (160-400); Red Blood Count 4.71 X10*6/uL (4.20-5.50); Red Cell Distribution Width 14.7 % (11.0-16.0); White Blood Count 13.2 X10*3/uL (4.8-10.8)
[2024-01-10 23:54] LABS: Alanine Aminotransferase 24 U/L (0-31); Albumin Level 4.7 g/dL (3.5-5.0); Alkaline Phosphatase 148 U/L (39-117); Anion Gap 14 (12-20); Aspartate Amino Transferase 25 U/L (5-31); Bilirubin Total 0.3 mg/dL (0.0-1.0); Blood Urea Nitrogen 20 mg/dL (9-16); Calcium 9.8 mg/dL (8.4-10.2); Carbon Dioxide 23 mmol/L (22-29); Chloride 110 mmol/L (96-108); Creatinine Clr Calc Pharmacy 132.2; Estimated Glomerular Filt Rate > 60; Glucose Random 141 mg/dL (60-115); Potassium 3.7 mmol/L (3.3-5.1); Sodium 143 mmol/L (135-145); Total Protein 8.9 g/dL (6.5-8.0)
[2024-01-11 00:15] VITALS: BP 147/83; PULSE 80; RESP 19; TEMP 36.6; O2SAT 97
[2024-01-11 02:25] VITALS: BP 152/83; PULSE 79; RESP 16; TEMP 36.8; O2SAT 97
[2024-01-11 04:20] VITALS: BP 131/66; PULSE 84; RESP 16; TEMP 36.9; O2SAT 96
[2024-01-11 06:00] VITALS: BP 141/80; PULSE 80; RESP 16; TEMP 36.7; O2SAT 97
--- NOTE | 2024-01-11 07:02 | ED.GENADULT ---
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 She notes when she has diarrhea, flank pain, nausea in the past it occurred when her stimulator was dislodged. She denies any traumatic events or seizures. She has not had cdiff with the cephalexin. No fevers. MD complaint: abdominal pain diarrhea Onset (ago): day(s) (3) Location: abdomen Radiation: non-radiation Severity: moderate Quality: aching Pain Consistency: intermittent Relieving factors: none Exacerbating factors: none Associated symptoms: loss of appetite, malaise, nausea/vomiting and other (diarrhea) Treatments prior to arrival: none Related Data Home Medications ?Medication ?Instructions ?Recorded ?Confirmed albuterol sulfate 90 mcg/actuation 2 puff inhalation Q6H PRN 04/27/20 12/16/23 aerosol inhaler (ProAir HFA) Shortness Of Breath cetirizine 10 mg tablet 10 mg PO BEDTIME 04/27/20 12/16/23 docusate sodium 100 mg capsule 100 mg PO BID 04/27/20 12/16/23 (DOK) duloxetine 30 mg capsule,delayed 30 mg PO BEDTIME 04/27/20 12/16/23 release metoprolol tartrate 50 mg tablet 50 mg PO BID 04/27/20 12/16/23 montelukast 10 mg tablet 10 mg PO BEDTIME 04/27/20 12/16/23 clonidine HCl 0.1 mg tablet 0.1 mg PO BID 06/05/20 12/16/23 apixaban 5 mg tablet (Eliquis) 5 mg PO BID 06/28/20 12/16/23 losartan 100 mg tablet 100 mg PO DAILY 06/28/20 12/16/23 furosemide 20 mg tablet 20 mg PO BID 12/25/21 12/16/23 topiramate 100 mg tablet 100 mg PO BEDTIME 12/25/21 12/16/23 ergocalciferol (vitamin D2) 1,250 1,250 mcg PO FR@0900 01/08/22 12/16/23 mcg (50,000 unit) capsule ferrous sulfate 325 mg (65 mg 325 mg PO DAILY 01/08/22 12/16/23 iron) tablet (FeroSul) amlodipine 5 mg tablet 5 mg PO DAILY 09/24/22 12/16/23 ascorbic acid (vitamin C) 500 mg 500 mg PO DAILY 10/06/22 12/16/23 capsule,extended release omeprazole 40 mg capsule,delayed 40 mg PO BID 01/09/23 12/16/23 release cyanocobalamin (vitamin B-12) 500 500 mcg PO DAILY 12/16/23 12/16/23 mcg tablet (Vitamin B-12) fluticasone furoate 200 2 inh inhalation DAILY 12/16/23 12/16/23 mcg-vilanterol 25 mcg/dose inhalation powder (Breo Ellipta) rosuvastatin 20 mg tablet 20 mg PO DAILY 12/16/23 12/16/23 Previous Rx's ?Medication ?Instructions ?Recorded albuterol sulfate 1.25 mg/3 mL 2.5 mg (6 mL) inhalation Q4-6H PRN 10/17/22 solution for nebulization shortness of breath or wheezing 30 days #270 mL gabapentin 300 mg capsule 300 mg PO BID 30 days #60 caps 11/25/23 galcanezumab-gnlm 120 mg/mL 240 mg (2 mL) subcut ONCE 30 days 12/10/23 subcutaneous pen injector #2 mL (Emgality Pen) cephalexin 500 mg capsule 1,000 mg (2 x 500 mg) PO Q8H 15 12/19/23 days #90 caps naloxone 4 mg/actuation nasal spray 4 mg intranasal Q2M PRN opioid 12/19/23 overdose 1 day #2 ea oxycodone 5 mg tablet 5 mg PO Q6H PRN postoperative pain 12/19/23 10 days #40 tabs morphine 15 mg immediate release 15 mg PO Q6H PRN pain #10 tabs 01/11/24 tablet ondansetron 4 mg disintegrating 4 mg PO Q8H PRN nausea and 01/11/24 tablet vomiting #20 tabs Allergies Allergy/AdvReac Type Severity Reaction Status Date / Time bacitracin Allergy Mild Rash Verified 01/10/24 23:08 ibuprofen Allergy Unknown Verified 01/10/24 23:08 lisinopril Allergy Unknown Verified 01/10/24 23:08 aspirin AdvReac Mild mild Verified 01/10/24 23:08 vaginal bleeding Review of Systems Review of Systems: Constitutional : No Weight loss, No Fever, No Chills ENT/Mouth : No sore throat, No Rhinorrhea Eyes: No Swelling, No Redness Cardiovascular : No Chest Pain, No SOB, NoEdema Respiratory : No Cough, No Sputum, No Wheezing Gastrointestinal : Positive Nausea, no Vomiting, positive Diarrhea, positive abdominal Pain, No Hematochezia, No Melena Genitourinary : No Dysuria, No Urinary Frequency, No Hematuria, No Urgency Musculoskeletal : No joint pain, No Myalgias, No Joint Swelling Skin : No Skin Lesions, No rash Neuro : No Weakness, No Numbness, No Dizziness, No Headache Psych : No Anxiety/Panic, No Depression All other systems reviewed and are negative. [facility] Past Medical History Attestation statement: The following information was validated with the patient. Source: old records reviewed Medical History Arthritis Peptic ulcer GERD (gastroesophageal reflux disease) CVA (cerebral vascular accident) SOB (shortness of breath) Atrial fibrillation Seizure On beta christina at home On anticoagulant therapy SANDEE (obstructive sleep apnea) Morbid obesity with BMI of 45.0-49.9, adult Gout High cholesterol Hypertension COVID-19 Osteoarthritis of knees, bilateral History of gastric ulcer Left inguinal hernia (~2013) Lab test positive for detection of COVID-19 virus (~11/2019) Bleeding disorder Asthma Surgical History History of back surgery S/P partial hysterectomy (11/10/18) H/O umbilical hernia repair (07/25/06) Hx of endoscopy Family History Family History Father Hx of diabetes insipidus Mother No problems noted. Social History Social History Household Members: Family and Children Housing: House Are you a primary resident care aid to a significant other at home: No Do you presently have visiting nurse or other home services: No Alcohol intake: never Comment: counts correct Patient Tobacco Use Status: Never used Tobacco e-Cigarette/Vaping Use: Never Used Second Hand Smoke Exposure: No Advance Directives: No Advance Directives Information Provided: No Advance Directives Date on File: 01/24/21 Do you have a plan to hurt others: No Plan Patient : No service: No Current occupational status: unemployed Current occupation: right handed Physical Exam ED Vital Signs: Vital Signs - 24 hr 01/10/24 23:06 01/11/24 00:15 01/11/24 02:25 Temperature 98.1 F 98 F 98.2 F Pulse Rate 83 80 79 Respiratory Rate 20 19 16 Blood Pressure 148/90 H 147/83 H 152/83 H Pulse Oximetry 97 97 97 Oxygen Delivery Method Room Air Room Air Room Air 01/11/24 04:20 01/11/24 06:00 01/11/24 08:48 Temperature 98.4 F 98.0 F Pulse Rate 84 80 89 Respiratory Rate 16 16 14 Blood Pressure 131/66 141/80 H 128/60 Pulse Oximetry 96 97 97 Oxygen Delivery Method Room Air Room Air Room Air BMI result Body Mass Index 46.5 Appearance: Alert. Oriented X3. No acute distress. Eyes: Pupils equal, round and reactive to light. ENT: Pharynx normal. Neck: Normal inspection. Neck supple. CVS: Normal heart rate and rhythm. Pulses normal. Respiratory: No respiratory distress. Breath sounds normal. Abdomen: Soft and mild ttp on R abdomen no rebound Back: scars appear c/d/i no redness Skin: Skin warm and dry. Normal skin color. Normal skin turgor. Extremities: No lower extremity edema. No calf ttp Neuro: Oriented X 3. No motor deficit. No sensory deficit. Course Course Course Narrative: chronic WBC count Medications Administered Discontinued Medications Generic Name Dose Route Start Last Admin Trade Name Freq PRN Reason Stop Dose Admin Sodium Chloride 1,000 mls @ 999 mls/hr 01/11/24 07:19 01/11/24 08:34 Ns IV 01/11/24 08:19 999 mls/hr .Q1H1M ONE Administration Iohexol 100 ml 01/11/24 08:20 01/11/24 08:20 Iohexol 350 Mg/Ml 100 Ml Infus..Btl IV 01/11/24 08:21 85 ml ONCE ONE Administration Morphine Sulfate 4 mg 01/11/24 07:19 01/11/24 08:33 Morphine Sulfate 4 Mg/Ml Cartridge IVPUSH 01/11/24 07:20 4 mg ONCE ONE Administration Protocol Ondansetron HCl 4 mg 01/11/24 07:19 01/11/24 08:34 Ondansetron Hcl 4 Mg/2 Ml Vial IVPUSH 01/11/24 07:20 4 mg ONCE ONE Administration Medical Decision Making Medical Decision Making MDM Narrative: 53 yo female with PMH of asthma, neuropathy, DDD, spinal cord stimulator, HTN, seizures, SANDEE, anemia here with c/o abdominal and diarrhea 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 No acute signs on abdominal exam. Differential Diagnosis Differential Diagnoses: The differential diagnosis associated with the presentation includes colitis, c diff, stimulator issue, viral syndrome Admission/Observation Consideration of admission/observation: Escalation of care including admission/observation considered CT scan no acute findings, no UTI, unable to provide stool doubt c diff stable VS can be DC Lab Data [facility] Lab Attestation statement: I reviewed the patient's lab results. 01/10/24 23:30 01/10/24 23:30 Labs: Lab Results 01/10/24 01/11/24 Range/Units 23:30 09:04 WBC 13.2 H (4.8-10.8) X10*3/uL RBC 4.71 (4.20-5.50) X10*6/uL Hgb 13.5 (12.0-16.0) g/dl Hct 41.5 (37.0-47.0) % MCV 88.1 (80.0-98.0) fL MCH 28.7 (27.0-33.0) pg MCHC 32.5 (31.0-35.0) g/dl RDW 14.7 (11.0-16.0) % Plt Count 435 H (160-400) X10*3/uL MPV 10.4 (9.4-12.3) fL Immature Gran % (Auto) 0.3 (0.0-0.4) % Neut % (Auto) 64.4 (45-73) % Lymph % (Auto) 26.9 (20-40) % [place] % (Auto) 5.6 (2-11) % Eos % (Auto) 2.4 (0-4) % Baso % (Auto) 0.4 (0-2) % Lymph # (Auto) 3.5 (1.2-4.9) X10*3/uL [place] # (Auto) 0.7 (0.1-1.2) X10*3/uL Eos # (Auto) 0.3 (0.0-0.4) X10*3/uL Baso # (Auto) 0.1 (0.0-0.2) X10*3/uL Abs Immat Gran (auto) 0.04 H (0.00-0.03) X10*3/uL Absolute Neuts (auto) 8.5 H (2.0-8.3) x10*3/uL Absolute Nucleated RBC 0.000 (0.0-0.012) X10*3/uL Nucleated RBC % (auto) 0.0 (0.0-0.2) /100WBC Sodium 143 (135-145) mmol/L Potassium 3.7 (3.3-5.1) mmol/L Chloride 110 H (96-108) mmol/L Carbon Dioxide 23 (22-29) mmol/L Anion Gap 14 (12-20) BUN 20 H (9-16) mg/dL Creatinine 0.77 (0.5-1.4) mg/dL Estim Creat Clear Calc 132.2 Estimated GFR > 60 Random Glucose 141 H (60-115) mg/dL Calcium 9.8 (8.4-10.2) mg/dL Total Bilirubin 0.3 (0.0-1.0) mg/dL AST 25 (5-31) U/L ALT 24 (0-31) U/L Alkaline Phosphatase 148 H (39-117) U/L Total Protein 8.9 H (6.5-8.0) g/dL Albumin 4.7 (3.5-5.0) g/dL Urine Color Yellow Urine Appearance Clear Urine pH 5.5 (5.0-9.0) Ur Specific [place] >= 1.030 H (1.005-1.025) Urine Protein Trace (Neg-Trace) mg/dL Urine Glucose (UA) Negative (Negative) mg/dL Urine Ketones Negative (Negative) mg/dL Urine Blood Negative (Negative) Urine Nitrite Negative (Negative) Ur Leukocyte Esterase Negative (Negative) Independent Interpretation I performed an independent interpretation of an: CT Scan (no acute findings) Radiology Impression Discussion of test interpretation with radiology: I have reviewed the radiologist's reading. External Record Review External record reviewed: Outpatient record Prescription Management I considered prescription management with: Pain Medication and Other Critical Care Time Critical Care Time Critical Care Time: Yes Total Critical Care Time: 35 Attestation: review of records, IV morphine for pain I attest to this time spent taking care of the patient Discharge Plan Discharge Clinical Impression: Diarrhea Qualifiers: Diarrhea type: unspecified type Qualified Code(s): R19.7 - Diarrhea, unspecified Abdominal pain Qualifiers: Abdominal location: generalized Qualified Code(s): R10.84 - Generalized abdominal pain Patient Disposition: Home, Self-Care Instructions: Acute Diarrhea (ED), Abdominal Pain (ED) Additional Instructions: urine negative, labs at baseline return for worsening symptoms call your pain management doctor tomorrow given your symptoms CT/CT abdomen pelvis w IV con IMPRESSION: 1. Mild hepatomegaly with diffusely decreased liver attenuation suggesting hepatic steatosis. Correlation with liver enzymes recommended. 2. Mild colonic diverticulosis without CT evidence to suggest active diverticulitis. 3. Tiny bilateral nonobstructing renal calculi. No hydronephrosis Prescriptions: New morphine 15 mg tablet 15 mg PO Q6H PRN (Reason: pain) Qty: 10 0RF Rx Instructions: partial fill okay; Partial Fill upon patient request. ondansetron 4 mg tablet,disintegrating 4 mg PO Q8H PRN (Reason: nausea and vomiting) Qty: 20 0RF No Action albuterol sulfate 1.25 mg/3 mL solution for nebulization 2.5 mg inhalation Q4-6H PRN (Reason: shortness of breath or wheezing) 30 Days Qty: 270 6RF gabapentin 300 mg capsule 300 mg PO BID 30 Days Qty: 60 2RF cephalexin 500 mg capsule 1,000 mg PO Q8H 15 Days Qty: 90 1RF Rx Instructions: Take probiotics 25 billion cultures OTC with food in between the doses of the antibiotics. oxycodone 5 mg tablet 5 mg PO Q6H PRN (Reason: postoperative pain) 10 Days Qty: 40 0RF Rx Instructions: Partial Fill upon patient request. naloxone 4 mg/actuation spray,non-aerosol 4 mg intranasal Q2M PRN (Reason: opioid overdose) 1 Days Qty: 2 4RF Rx Instructions: spray 1 dose into ONE nostril; alternate nostrils w each dose until help arrives ascorbic acid (vitamin C) 500 mg capsule, extended release 500 mg PO DAILY Rx Instructions: take with iron fluticasone furoate-vilanterol [Breo Ellipta] 200-25 mcg/dose blister with device 2 inh inhalation DAILY cyanocobalamin (vitamin B-12) [Vitamin B-12] 500 mcg Tablet 500 mcg PO DAILY rosuvastatin 20 mg Tablet 20 mg PO DAILY clonidine HCl 0.1 mg tablet 0.1 mg PO BID albuterol sulfate [ProAir HFA] 90 mcg/actuation HFA aerosol inhaler 2 puff inhalation Q6H PRN (Reason: Shortness Of Breath) cetirizine 10 mg tablet 10 mg PO BEDTIME docusate sodium [DOK] 100 mg capsule 100 mg PO BID duloxetine 30 mg capsule,delayed release(DR/EC) 30 mg PO BEDTIME montelukast 10 mg tablet 10 mg PO BEDTIME metoprolol tartrate 50 mg tablet 50 mg PO BID Eliquis 5 mg tablet 5 mg PO BID Patient Comments: pt not taking currently. has procedure on 10/08/22 losartan 100 mg tablet 100 mg PO DAILY ferrous sulfate [FeroSul] 325 mg (65 mg iron) tablet 325 mg PO DAILY Rx Instructions: take with water ergocalciferol (vitamin D2) 1,250 mcg (50,000 unit) capsule 1,250 mcg PO FR@0900 furosemide 20 mg tablet 20 mg PO BID topiramate 100 mg tablet 100 mg PO BEDTIME amlodipine 5 mg tablet 5 mg PO DAILY omeprazole 40 mg capsule,delayed release(DR/EC) 40 mg PO BID Emgality Pen 120 mg/mL pen injector 240 mg subcut ONCE 30 Days Qty: 2 0RF Rx Instructions: Loading dose: 120 mg subcu injection x2 in alternate sites (total 240 mg). To be followed by maintenance dose of 120 mg subcu q.month. Print Language: [place]
[2024-01-11] MEDS: iohexoL 350 MG/ML 100 ML INFUS..BTL IV (08:20)
[2024-01-11] MEDS: Morphine Sulfate 4 MG/ML CARTRIDGE IVPUSH (08:33)
[2024-01-11] MEDS: ondansetron HCL 4 MG/2 ML VIAL IVPUSH (08:34)
[2024-01-11] MEDS: 0.9 % Sodium Chloride 1,000 ML 999 ML IV (08:34)
[2024-01-11 08:48] VITALS: BP 128/60; PULSE 89; RESP 14; O2SAT 97
[2024-01-11 09:10] LABS: Appearance Urine Clear; Color Urine Yellow; Glucose Urine UA Negative (Negative); Leukocyte Esterase Urine Negative (Negative); Nitrite Urine Negative (Negative); PH 5.5 (5.0-9.0); Specific Gravity - Urine >= 1.030 (1.005-1.025); Urine Blood Negative (Negative); Urine Ketones Negative (Negative); Urine Protein Trace mg/dL (Neg-Trace)
[2024-01-11] MEDS: oxyCODONE HCl Immed Release 5 MG TABLET PO (09:52)
[2024-01-11 10:22] VITALS: BP 128/60; PULSE 89; RESP 14; TEMP 36.7; O2SAT 97
== END 2024-01-11 10:22 | disposition home or self-care (01) ==
PROVIDERS: Emergency Provider Emergency Medicine; PCP Student in an Organized Health Care Education/Training Program
DX: R19.7 Diarrhea, unspecified (principal); R10.84 Generalized abdominal pain; I10 Essential (primary) hypertension; J45.909 Unspecified asthma, uncomplicated; I48.91 Unspecified atrial fibrillation; Z79.01 Long term (current) use of anticoagulants; Z79.899 Other long term (current) drug therapy
CPT/HCPCS: 36415; 74177; 80053; 81003; 85025; 96361; 96374; 96375; 99284; 99285; J2270; J2405; Q9967

== ENCOUNTER 2024-01-19 11:08 | Outpatient (AMB) | payer MEDICAID, SELFPAY ==
--- NOTE | 2024-01-19 11:09 | A.OFFVIS_ITS ---
Vital Signs 01/19/24 11:14 Height 5 ft 9 in Weight 315 lb 4 oz BMI 46.5 BP 163/91 H Blood Pressure Location Lt brachial Position Sitting Respiration 18 Pulse 71 Pulse Source Pulse Oximeter Pulse Oximetry (%) 95 Oxygen Delivery Method Room Air Intake Visit Reasons: Follow up/ stimulator check Intake Note: Patient comes in for follow up. Reports pain 10/. Allergies bacitracin Allergy (Mild, Verified 01/19/24 11:15) Rash ibuprofen Allergy (Verified 01/19/24 11:15) Unknown lisinopril Allergy (Verified 01/19/24 11:15) Unknown aspirin Adverse Reaction (Mild, Verified 01/19/24 11:15) mild vaginal bleeding HPI Comments Details: Tamanna is back in my office after the revision of the cervical positioned spinal cord stimulator. She reports against severe pain with radiation into now bilateral approximately a 5th rib projection. My suspicion 1st that she had her spinal cord stimulator dislodged again especially after she has told me that she had recently a seizure. She reported that social circumstances aggravated her seizure condition. I sent her for the x-ray of the cervical and thoracic spine. She dislodged her spinal cord stimulator little bit however not as much as it was last time. It is more or less in the projection of the central thoracic spinal canal on the AP view and more or less in the posterior epidural space in the thoracic spine on the lateral view. Therefore there is no reason for me to suspect this spinal cord stimulator aggravating her pain in the thoracic area. I think we should send her for the MRI of the thoracic spine to detect possible pain generators there. Prior: bilateral acromioclavicular joint injection which was performed on 06/03/2023.. She reports overall 50% of pain improvement in the shoulders. She reports slightly improved mobility of the left upper extremity. However he continues to complain on swelling and pain in bilateral upper shoulders. She is interested in neuromodulation. She is asking me whether she can try the same stimulation in her neck to help her pain in his shoulders as she did for her back. Complains on cervical pain with radiation to the left upper extremity or left side of the thoracic back and even down to the left loin. She also reports as sociated weakness in the left upper extremity and awkwardness of left upper extremity. She is a subject of multiple interventional procedures. She recently had implantation of spinal cord stimulator to treat her lower back pain. She still reports 80% of pain improvement on spinal cord stimulator. On background of improved lower back pain the thoracic and cervical pain comes to foreground. She was a subject of x-ray of the cervical spine results of which dictated as below. [facility] Medical History Arthritis Peptic ulcer GERD (gastroesophageal reflux disease) CVA (cerebral vascular accident) SOB (shortness of breath) Atrial fibrillation Seizure On beta christina at home On anticoagulant therapy SANDEE (obstructive sleep apnea) Morbid obesity with BMI of 45.0-49.9, adult Gout High cholesterol Hypertension COVID-19 Osteoarthritis of knees, bilateral History of gastric ulcer Left inguinal hernia (~2013) Lab test positive for detection of COVID-19 virus (~11/2019) Bleeding disorder Asthma Surgical History History of back surgery S/P partial hysterectomy (11/10/18) H/O umbilical hernia repair (07/25/06) Hx of endoscopy Family History Father Hx of diabetes insipidus Mother No problems noted. Social History Household Members: Family and Children Housing: House Are you a primary healthcare project manager to a significant other at home: No Do you presently have visiting nurse or other home services: No Alcohol intake: never Comment: counts correct Patient Tobacco Use Status: Never used Tobacco e-Cigarette/Vaping Use: Never Used Second Hand Smoke Exposure: No Advance Directives Date on File: 01/24/21 service: No Current occupational status: unemployed Current occupation: right handed Review of Systems Const All systems reviewed & are unremarkable except as noted in HPI and below Physical Exam Vital Signs: Last Vital Signs Pulse 71 01/19/24 11:14 Resp 18 01/19/24 11:14 BP 163/91 H 01/19/24 11:14 Pulse Ox 95 01/19/24 11:14 Oxygen Delivery Method Room Air 01/19/24 11:14 BMI result Body Mass Index 46.5 Const General: no acute distress and alert Nutritional Appearance: not obese Orientation/consciousness: Other orientation findings ( oriented) HEENT Head: Yes atraumatic Eyes General: appearance normal, both eyes and all related structures Sclerae: sclerae normal EOM: EOMs intact bilaterally Neck Neck: No full ROM Resp Other: There is tenderness on palpation in the projection of the right approximately 6 rib alongside the course of the rib from the posterior thoracic spine all the way to the mid axillary line. Effort & Inspection: normal respiratory effort and no use of accessory muscles Skin General skin exam: other ( warm) Extrem General: No clubbing, No cyanosis and No edema Psych Appearance: grossly normal Mental Status: mental status grossly normal Speech and movement: Normal speech and movement present Affect: normal affect Attitude: cooperative Thought process: Normal thought process present Thought content: Normal thought content present Insight: Good insight present (Psych) Judgement: Good judgement present (Psych) Results Reviewed Results Reviewed: I personally evaluated x-rays of the thoracic and lumbar spine and did not find significant deviation of the leads now in the lateral gutter of the thoracic spine. Assessment & Plan Assessment & Plan (1) Spinal cord stimulator dysfunction: Code(s): T85.192A - Other mechanical complication of implanted electronic neurostimulator of spinal cord electrode (lead), initial encounter Category: Medical (2) Radiculopathy, thoracic region: Code(s): M54.14 - Radiculopathy, thoracic region Category: Medical Plan Patient again had a seizure and although she reports social circumstances aggravating the seizure her seizure needs to be under better control. As of her positioned of the epidural leads the they are dislodged minimally however remain in the posterior epidural space and in the position of midbody of C2 and midbody of C3 vertebral body projections. It is unlikely that this electrodes at this time compress any radicular nerves. I would need to evaluate possibility of her thoracic vertebra and intervertebral discs approximately at T4-T5 or T5-T6 position to create this pain syndrome she complains about. I will send her for the MRI of the thoracic spine. Orders: Orders XR thoracic spine 2V Today T85.192A - Other mechanical complication of implanted electronic neurostimulator of spinal cord electrode (lead), initial encounter XR cervical spine 3V Today T85.192A - Other mechanical complication of implanted electronic neurostimulator of spinal cord electrode (lead), initial encounter MR thoracic spine wo con Today M54.14 - Radiculopathy, thoracic region Medications: Refilled oxycodone Partial Fill upon patient request. 5 mg PO Q6H PRN 40 tabs 0RF postoperative pain 10 days Patient Instructions: I here by testify I spent 35 minutes in conversation with this patient as well as evaluating her images and ordering new imaging procedures as well as organizing this note. Coding Level of Care Code Est Pt Level 4 (88919) Diagnoses Spinal cord stimulator dysfunction T85.192A Radiculopathy, thoracic region M54.14
[2024-01-19 11:14] VITALS: BP 163/91; PULSE 71; RESP 18; O2SAT 95; BMI 46.5
== END 2024-01-19 11:25 | disposition home or self-care (01) ==
PROVIDERS: PCP Student in an Organized Health Care Education/Training Program; Referring Provider Student in an Organized Health Care Education/Training Program; Visit Provider Anesthesiology
DX: T85.192A Other mechanical complication of implanted electronic neurostimulator of spinal cord electrode (lead), initial encounter (principal); M54.14 Radiculopathy, thoracic region
CPT/HCPCS: 99214

== ENCOUNTER 2024-01-19 11:08 | Outpatient (REF) | payer MEDICAID, SELFPAY ==
--- NOTE | ~2024-01-19 | XR_ITS ---
EXAMINATION: CERVICAL SPINE 3 VIEWS CLINICAL INFORMATION: Left flank pain; revision of spinal stimulator. COMPARISON: Radiographs dated 12/10/2023. TECHNIQUE: Frontal, lateral and odontoid views are obtained. FINDINGS: Vertebral body heights and alignment are normal. The disc spaces are well-maintained. No acute fracture or spondylolisthesis is seen. There is anterior endplate arthropathy at C3-C4 through C5-C6. The dens and C7-T1 interface are normal. A spinal stimulator device is seen within distal tip positioned at C2. The posterior elements are intact. There is no prevertebral soft tissue swelling. XR/XR cervical spine 3V IMPRESSION: 1. A cervical stimulator device is seen, as detailed. 2. The cervical disc spaces are well-maintained. 3. There is anterior endplate arthropathy at C3-C4 through C5-C6. EXAMINATION: XR THORACIC SPINE CLINICAL INFORMATION: Left flank pain; revision of spinal stimulator. COMPARISON: Radiographs dated 12/10/2023. TECHNIQUE: Frontal, lateral and swimmer's views of the thoracic spine were obtained. FINDINGS: Vertebral body heights are normal. There is a mild thoracic dextroscoliosis. There are spinal stimulator leads with tips positioned in the cervical region as far distal as C2. Additional spinal stimulator leads are noted with tip positioned at T9. No lead fracture is seen. No acute bony fracture or spondylolisthesis is seen. The disc spaces are well-maintained. The posterior elements are intact. The paravertebral soft tissues are unremarkable. IMPRESSION: 1. Cervical and thoracic stimulator devices are seen, as detailed. 2. There is a mild thoracic dextroscoliosis.
--- NOTE | ~2024-01-19 | XR_ITS ---
EXAMINATION: CERVICAL SPINE 3 VIEWS CLINICAL INFORMATION: Left flank pain; revision of spinal stimulator. COMPARISON: Radiographs dated 12/10/2023. TECHNIQUE: Frontal, lateral and odontoid views are obtained. FINDINGS: Vertebral body heights and alignment are normal. The disc spaces are well-maintained. No acute fracture or spondylolisthesis is seen. There is anterior endplate arthropathy at C3-C4 through C5-C6. The dens and C7-T1 interface are normal. A spinal stimulator device is seen within distal tip positioned at C2. The posterior elements are intact. There is no prevertebral soft tissue swelling. XR/XR thoracic spine 2V IMPRESSION: 1. A cervical stimulator device is seen, as detailed. 2. The cervical disc spaces are well-maintained. 3. There is anterior endplate arthropathy at C3-C4 through C5-C6. EXAMINATION: XR THORACIC SPINE CLINICAL INFORMATION: Left flank pain; revision of spinal stimulator. COMPARISON: Radiographs dated 12/10/2023. TECHNIQUE: Frontal, lateral and swimmer's views of the thoracic spine were obtained. FINDINGS: Vertebral body heights are normal. There is a mild thoracic dextroscoliosis. There are spinal stimulator leads with tips positioned in the cervical region as far distal as C2. Additional spinal stimulator leads are noted with tip positioned at T9. No lead fracture is seen. No acute bony fracture or spondylolisthesis is seen. The disc spaces are well-maintained. The posterior elements are intact. The paravertebral soft tissues are unremarkable. IMPRESSION: 1. Cervical and thoracic stimulator devices are seen, as detailed. 2. There is a mild thoracic dextroscoliosis.
== END 2024-01-19 11:09 | disposition home or self-care (01) ==
LOC: HO.XRAY 11:08
PROVIDERS: PCP Student in an Organized Health Care Education/Training Program; Visit Provider Anesthesiology
DX: T85.192A Other mechanical complication of implanted electronic neurostimulator of spinal cord electrode (lead), initial encounter (principal); M54.14 Radiculopathy, thoracic region; X58.XXXA Exposure to other specified factors, initial encounter; Z45.42 Encounter for adjustment and management of neurostimulator
CPT/HCPCS: 72040; 72070; 99212

== ENCOUNTER 2024-03-22 10:58 | Outpatient (AMB) | payer MEDICAID, SELFPAY ==
--- NOTE | 2024-03-22 10:58 | A.OFFVIS_ITS ---
Intake Visit Reasons: Discussion Allergies bacitracin Allergy (Mild, Verified 03/22/24 10:59) Rash ibuprofen Allergy (Verified 03/22/24 10:59) Unknown lisinopril Allergy (Verified 03/22/24 10:59) Unknown aspirin Adverse Reaction (Mild, Verified 03/22/24 10:59) mild vaginal bleeding HPI Comments Details: Tamanna is on the phone with me today she is complaining on the same kind of chest pain she developed after initial insertion of cervical spinal cord stimulator. I suspect that she dislodged that spinal cord stimulator again and it is again compressing 1 of her radicular nerves. I sent her for the x-ray of the cervical spine to confirm my suspicion. I will see her in 1 week and then we will discuss things further. Possibility to remove the spinal cord stimulator and replace it with the surgically implanted paddle lead exists to help her pain. Prior: back in my office after the revision of the cervical positioned spinal cord stimulator. She reports against severe pain with radiation into now bilateral approximately a 5th rib projection. My suspicion 1st that she had her spinal cord stimulator dislodged again especially after she has told me that she had recently a seizure. She reported that social circumstances aggravated her seizure condition. I sent her for the x-ray of the cervical and thoracic spine. She dislodged her spinal cord stimulator little bit however not as much as it was last time. It is more or less in the projection of the central thoracic spinal canal on the AP view and more or less in the posterior epidural space in the thoracic spine on the lateral view. Therefore there is no reason for me to suspect this spinal cord stimulator aggravating her pain in the thoracic area. I think we should send her for the MRI of the thoracic spine to detect possible pain generators there. Prior: bilateral acromioclavicular joint injection which was performed on 06/03/2023.. She reports overall 50% of pain improvement in the shoulders. She reports slightly improved mobility of the left upper extremity. However he continues to complain on swelling and pain in bilateral upper shoulders. She is interested in neuromodulation. She is asking me whether she can try the same stimulation in her neck to help her pain in his shoulders as she did for her back. Complains on cervical pain with radiation to the left upper extremity or left side of the thoracic back and even down to the left loin. She also reports associated weakness in the left upper extremity and awkwardness of left upper extremity. She is a subject of multiple interventional procedures. She recently had implantation of spinal cord stimulator to treat her lower back pain. She still reports 80% of pain improvement on spinal cord stimulator. On background of improved lower back pain the thoracic [facility] She was a subject of x-ray of the cervical spine results of which dictated as below. [facility], [facility] Medical History Arthritis Peptic ulcer GERD (gastroesophageal reflux disease) CVA (cerebral vascular accident) SOB (shortness of breath) Atrial fibrillation Seizure On beta christina at home On anticoagulant therapy SANDEE (obstructive sleep apnea) Morbid obesity with BMI of 45.0-49.9, adult Gout High cholesterol Hypertension COVID-19 Osteoarthritis of knees, bilateral History of gastric ulcer Left inguinal hernia (~2013) Lab test positive for detection of COVID-19 virus (~11/2019) Bleeding disorder Asthma Surgical History History of back surgery S/P partial hysterectomy (11/10/18) H/O umbilical hernia repair (07/25/06) Hx of endoscopy Family History Father Hx of diabetes insipidus Mother No problems noted. Social History Household Members: Family and Children Housing: House Are you a primary wound care rn to a significant other at home: No Do you presently have visiting nurse or other home services: No Alcohol intake: never Comment: counts correct Patient Tobacco Use Status: Never used Tobacco e-Cigarette/Vaping Use: Never Used Second Hand Smoke Exposure: No Advance Directives Date on File: 01/24/21 service: No Current occupational status: unemployed Current occupation: right handed Review of Systems Const All systems reviewed & are unremarkable except as noted in HPI and below Telehealth Telehealth Telehealth Platform: Telephone Location of provider rendering services: practice address Location of patient: address on file Patient Identification confirmed using: Name, : Yes Telehealth method: voice only Patient verbally consented to treatment: Yes Patient verbally consented to billing insurance company: Yes Patient informed of any privacy concerns related to visit: Yes Assessment & Plan Assessment & Plan (1) Spinal cord stimulator dysfunction: Code(s): T85.192A - Other mechanical complication of implanted electronic neurostimulator of spinal cord electrode (lead), initial encounter Category: Medical (2) Radiculopathy, thoracic region: Code(s): M54.14 - Radiculopathy, thoracic region Category: Medical Plan She complains on thoracic pain, she reports that this was exactly the same pain as the was the 1st 1 after initial implantation of cervical SCS. I suspect that SCS dislodged and now compressing thoracic nerve again. I will send her for x- ray. I will discuss results of the x-ray. She is very negative about removal of the spinal cord stimulator. She states that it helps her pain. Therefore I think that the only option I can offer to her is surgically implanted cervical position paddle stimulator lead with tunneling of the leads under the skin and not through the spinal canal. Orders: Orders XR cervical spine 3V Today T85.192A - Other mechanical complication of im planted electronic neurostimulator of spinal cord electrode (lead), initial encounter Patient Instructions: I here by testify that I spent 15 minutes in conversation with this patient as well as planning her care and organizing this note. Coding Level of Care Code Tele Est Pt Level 3 (44426) Diagnoses Spinal cord stimulator dysfunction T85.192A Radiculopathy, thoracic region M54.14
== END 2024-03-22 11:05 | disposition home or self-care (01) ==
LOC: HO.PMC 10:58
PROVIDERS: PCP Student in an Organized Health Care Education/Training Program; Visit Provider Anesthesiology
DX: T85.192A Other mechanical complication of implanted electronic neurostimulator of spinal cord electrode (lead), initial encounter (principal); M54.14 Radiculopathy, thoracic region
CPT/HCPCS: 99213

== ENCOUNTER → 2024-03-22 10:58 | Outpatient (BNVA) | payer MEDICAID, SELFPAY | PROVIDERS: PCP Student in an Organized Health Care Education/Training Program; Visit Provider Anesthesiology ==

== ENCOUNTER 2024-03-23 08:00 | Outpatient (REF) | payer MEDICAID, SELFPAY ==
--- NOTE | ~2024-03-23 | XR_ITS ---
EXAMINATION: XR CERVICAL SPINE 4 VIEWS CLINICAL INFORMATION: Other mechanical complication of implanted electronic neurostimulator T85.192A. COMPARISON: XR Cervical spine 01/19/2024 TECHNIQUE: 4 views of the cervical spine were obtained. FINDINGS: There are no prevertebral soft tissue abnormalities demonstrated. No compression fractures or subluxations are identified. Alignment is maintained at the atlanto-axial articulation. Degenerative changes with disc space narrowing and osteophyte formation is seen at C4/5 and C5/6. Posterior facet joint are well-maintained. Spinal stimulator leads are seen extending to the level of C2. The prevertebral soft tissues are normal. XR/XR cervical spine 3V IMPRESSION: Degenerative disc disease at C4/5 and C5/6. Stable positioning of neurostimulator device Electronically signed by: Brett Quiles MD 05/31/2024 07:24 PM EST
== END 2024-03-23 08:01 | disposition home or self-care (01) ==
LOC: HO.XRAY 08:00
PROVIDERS: PCP Student in an Organized Health Care Education/Training Program; Visit Provider Anesthesiology
DX: T85.192A Other mechanical complication of implanted electronic neurostimulator of spinal cord electrode (lead), initial encounter (principal)
CPT/HCPCS: 72040

== ENCOUNTER 2024-04-07 14:03 | Outpatient (AMB) | payer MEDICAID, SELFPAY ==
--- NOTE | 2024-04-07 14:09 | HO.SPINEOV ---
Intake Visit Reasons: Surgical consult from Intake Note: Ms. Gutierrez is here today c/o thoracic pain and neck pain that radiates to arms and legs. 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 However, on review of the images the stimulator is in the correct place. I discussed the case with the referring physician and he agreed and therefore I discharged the patient. Mark Redman MD, PhD Spine Fellowship Trained Neurosurgeon Director, [facility] Coding Level of Care Code New Pt Level 2 (09276) Diagnoses Spinal cord stimulator status Z96.89
== END 2024-04-07 15:12 | disposition home or self-care (01) ==
PROVIDERS: PCP Student in an Organized Health Care Education/Training Program; Referring Provider Anesthesiology; Visit Provider Neurological Surgery
DX: Z96.89 Presence of other specified functional implants (principal)
CPT/HCPCS: 99202

== ENCOUNTER → 2024-04-07 14:03 | Outpatient (BNVA) | payer MEDICAID, SELFPAY | PROVIDERS: PCP Student in an Organized Health Care Education/Training Program; Visit Provider Neurological Surgery | DX: Z96.89 Presence of other specified functional implants (principal) | CPT/HCPCS: 99202 ==

== ENCOUNTER 2024-04-15 08:06 | Outpatient (AMB) | payer MEDICAID, SELFPAY ==
--- NOTE | 2024-04-15 08:09 | MHC.OFFVIS ---
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 She reported severe pain in bilateral lower back as well as severe pain in thoracic back slightly above the level of the scapulas approximately in bilateral rhomboid muscles projection. She states that both of the spinal cord stimulators do not cover her pain. Previously I was entertaining an idea that the pain of the patient is secondary to deviation of the spinal cord stimulator epidural leads. However today it appears to be that pain is not radicular and rather local in nature. She also states that the pain is not covered by spinal cord stimulator which would be the case if pain would be radicular. The spinal cord stimulator is positioned in proper location in the posterior cervical spine in the projection of C2-C3 C3-C4 vertebra and there are no observable deviation of the epidural leads on the the anterior posterior view in the thoracic or cervical spine. She requests me to perform therapeutic medial branch blocks for her lower lumbar pain as well as for her thoracic spine pain. She stated that therapeutic blocks which were performed for her in the past were more or less helpful for her. I explained to her risk of the steroid medications. I explained to her risks of diabetes and osteoporosis. Nevertheless the patient insisted on performing those injections. I told her to turn the spinal cord stimulator lumbar off before she would go for the L3-L4 dorsal ramus L5 bilateral therapeutic medial branch block and the same should be done for cervical spinal cord stimulator when she will go for thoracic medial branch blocks. I also will contact [facility] and we will request there opinion on whether [facility] would be acceptable way of treating Tamanna's pain in presence of spinal cord stimulators in her spine. Prior: back in my office after the revision of the cervical positioned spinal cord stimulator. She reports against severe pain with radiation into now bilateral approximately a 5th rib projection. My suspicion 1st that she had her spinal cord stimulator dislodged again especially after she has told me that she had recently a seizure. She reported that social circumstances aggravated her seizure condition. I sent her for the x-ray of the cervical and thoracic spine. She dislodged her spinal cord stimulator little bit however not as much as it was last time. It is more or less in the projection of the central thoracic spinal canal on the AP view and more or less in the posterior epidural space in the thoracic spine on the lateral view. Therefore there is no reason for me to suspect this spinal cord stimulator aggravating her pain in the thoracic area. I think we should send her for the MRI of the thoracic spine to detect possible pain generators there. Prior: bilateral acromioclavicular joint injection which was performed on 06/03/2023.. She reports overall 50% of pain improvement in the shoulders. She reports slightly improved mobility of the left upper extremity. However he continues to complain on swelling and pain in bilateral upper shoulders. She is interested in neuromodulation. She is asking me whether she can try the same stimulation in her neck to help her pain in his shoulders as she did for her back. Complains on cervical pain with radiation to the left upper extremity or left side of the thoracic back and even down to the left loin. She also reports associated weakness in the left upper extremity and awkwardness of left upper extremity. She is a subject of multiple interventional procedures. She recently had implantation of spinal cord stimulator to treat her lower back pain. She still reports 80% of pain improvement on spinal cord stimulator. On background of improved lower back pain the thoracic and cervical pain comes to foreground. She was a subject of x-ray of the cervical spine results of which dictated as below. [facility] Medical History Arthritis Peptic ulcer GERD (gastroesophageal reflux disease) CVA (cerebral vascular accident) SOB (shortness of breath) Atrial fibrillation Seizure On beta christina at home On anticoagulant therapy SANDEE (obstructive sleep apnea) Morbid obesity with BMI of 45.0-49.9, adult Gout High cholesterol Hypertension COVID-19 Osteoarthritis of knees, bilateral History of gastric ulcer Left inguinal hernia (~2013) Lab test positive for detection of COVID-19 virus (~11/2019) Bleeding disorder Asthma Surgical History History of back surgery S/P partial hysterectomy (11/10/18) H/O umbilical hernia repair (07/25/06) Hx of endoscopy Family History Father Hx of diabetes insipidus Mother No problems noted. Social History Household Members: Family and Children Housing: House Are you a primary direct care specialist to a significant other at home: No Do you presently have visiting nurse or other home services: No Alcohol intake: never Comment: counts correct Patient Tobacco Use Status: Never used Tobacco e-Cigarette/Vaping Use: Never Used Second Hand Smoke Exposure: No Advance Directives Date on File: 01/24/21 service: No Current occupational status: unemployed Current occupation: right handed Review of Systems Const All systems reviewed & are unremarkable except as noted in HPI and below Physical Exam Vital Signs: Last Vital Signs Pulse 69 04/15/24 08:14 BP 169/99 H 04/15/24 08:14 Pulse Ox 100 04/15/24 08:14 Oxygen Delivery Method Room Air 04/15/24 08:14 BMI result Body Mass Index 47.5 Const General: no acute distress and alert Nutritional Appearance: not obese Orientation/consciousness: Other orientation findings ( oriented) HEENT Head: Yes atraumatic Eyes General: appearance normal, both eyes and all related structures Sclerae: sclerae normal EOM: EOMs intact bilaterally Neck Other: There is tenderness on palpation in the projection of the rhomboid minor and rhomboid major muscle bilaterally. Neck: No full ROM Resp Effort & Inspection: normal respiratory effort and no use of accessory muscles Back/Spine/Pelvis Other: There is tenderness on palpation in the projection of the lower back paraspinal spinal regions. Loading test is positive bilaterally. Valsalva is negative for pain increase. Brad test is negative bilaterally. Flexing backwards aggravates pain more than flexing forward. Skin General skin exam: other ( warm) Extrem General: No clubbing, No cyanosis and No edema Psych Appearance: grossly normal Mental Status: mental status grossly normal Speech and movement: Normal speech and movement present Affect: normal affect Attitude: cooperative Thought process: Normal thought process present Thought content: Normal thought content present Insight: Good insight present (Psych) Judgement: Good judgement present (Psych) Assessment & Plan Assessment & Plan (1) Spondylosis of lumbar region without myelopathy or radiculopathy: Code(s): M47.816 - Spondylosis without myelopathy or radiculopathy, lumbar region Category: Medical (2) Spondylosis, thoracic, without myelopathy: Code(s): M47.814 - Spondylosis without myelopathy or radiculopathy, thoracic region Category: Medical (3) Spinal cord stimulator dysfunction: Code(s): T85.192A - Other mechanical complication of implanted electronic neurostimulator of spinal cord electrode (lead), initial encounter Category: Medical Plan The nature of the complaints changed again and Nolen now complains on bilateral pain in upper thoracic spine as well as bilateral pain in upper lumbar spine. This pattern of complains are unlikely related to the mild positioning of spinal cord stimulator. (see the consult of the neurosurgeon Dr. Redman). She insists on performing bilateral medial branch blocks as she had in the past. I will schedule her for bilateral therapeutic medial branch block L3-L4 does ramus L5. She needs to turn the lumbar/thoracic machine off for going for this procedure. She can not keep the cervical device on. I will see her next time on the appointment for the injection and after that I will see her for the follow-up after medial branch blocks. Patient Instructions: I here by testify that I spent 35 minutes in conversation with this patient as well as examining her prior records and prior diagnostic studies as well as planning her care and organizing this note. Coding Level of Care Code Est Pt Level 4 (03694) Diagnoses Spondylosis of lumbar region without myelopathy or radiculopathy M47.816 Spondylosis, thoracic, without myelopathy M47.814 Spinal cord stimulator dysfunction T85.192A
[2024-04-15 08:14] VITALS: BP 169/99; PULSE 69; O2SAT 100; BMI 47.5
== END 2024-04-15 08:38 | disposition home or self-care (01) ==
LOC: HO.PMC 08:07
PROVIDERS: PCP Student in an Organized Health Care Education/Training Program; Visit Provider Anesthesiology
DX: M47.816 Spondylosis without myelopathy or radiculopathy, lumbar region (principal); M47.814 Spondylosis without myelopathy or radiculopathy, thoracic region; T85.192A Other mechanical complication of implanted electronic neurostimulator of spinal cord electrode (lead), initial encounter
CPT/HCPCS: 99214

== ENCOUNTER → 2024-04-15 08:06 | Outpatient (BNVA) | payer MEDICAID, SELFPAY | PROVIDERS: PCP Student in an Organized Health Care Education/Training Program; Visit Provider Anesthesiology | DX: M47.816 Spondylosis without myelopathy or radiculopathy, lumbar region (principal); M47.814 Spondylosis without myelopathy or radiculopathy, thoracic region; T85.192D Other mechanical complication of implanted electronic neurostimulator of spinal cord electrode (lead), subsequent encounter | CPT/HCPCS: 99212 ==

== ENCOUNTER 2024-05-03 09:23 | Emergency (ER) | payer MEDICAID, SELFPAY ==
[2024-05-03 09:34] VITALS: BP 122/86; PULSE 74; RESP 16; TEMP 36.7; O2SAT 98; BMI 46.5
[2024-05-03 10:34] LABS: Influenza A PCR NEGATIVE (Negative); Influenza B PCR NEGATIVE (Negative); Resp Syncy Virus RNA Qual PCR NEGATIVE (Negative); SARS COV2 PCR INHOUSE NEGATIVE (Negative)
[2024-05-03 13:28] LABS: IDNOW Serial# 08D9AD1C; Strep A Nucleic Acid Negative (Negative)
--- NOTE | 2024-05-03 13:49 | ED_ITS ---
HPI - General Adult General Chief complaint: Upper Respiratory Symptoms Stated complaint: alexandr tang Time Seen by Provider: 05/03/24 13:46 Source: patient Mode of arrival: ambulatory Limitations: no limitations History of Present Illness ED Provider: Lucinda Black PA-C HPI narrative: Patient is a 54 year old assigned female at with a history of HTN, GERD, DDD, and migraines presenting to the emergency department today with a week of cough, fever, sore throat, and body aches. Patient states that over the last week she has had persistent cough, fever, sore throat, and body aches. Patient denies any dizziness, lightheadedness, abdominal pain, nausea, vomiting, chills, blurry vision, double vision, loss of vision, chest pain, difficulty breathing, shortness of breath, back pain, night sweats, pain with urination, increased urinary frequency, increased urinary urgency, blood in her urine or stool, syncope or a near syncopal episode, recent trauma or falls, bowel incontinence, bladder incontinence, or any other complaints at this time. Onset (ago): week(s) (1) Relieving factors: none Exacerbating factors: none Associated symptoms: cough and fever/chills Treatments prior to arrival: none Related Data Home Medications ?Medication ?Instructions ?Recorded ?Confirmed albuterol sulfate 90 mcg/actuation 2 puff inhalation Q6H PRN 04/27/20 12/16/23 aerosol inhaler (ProAir HFA) Shortness Of Breath cetirizine 10 mg tablet 10 mg PO BEDTIME 04/27/20 12/16/23 docusate sodium 100 mg capsule 100 mg PO BID 04/27/20 12/16/23 (DOK) duloxetine 30 mg capsule,delayed 30 mg PO BEDTIME 04/27/20 12/16/23 release metoprolol tartrate 50 mg tablet 50 mg PO BID 04/27/20 12/16/23 montelukast 10 mg tablet 10 mg PO BEDTIME 04/27/20 12/16/23 clonidine HCl 0.1 mg tablet 0.1 mg PO BID 06/05/20 12/16/23 apixaban 5 mg tablet (Eliquis) 5 mg PO BID 06/28/20 12/16/23 losartan 100 mg tablet 100 mg PO DAILY 06/28/20 12/16/23 furosemide 20 mg tablet 20 mg PO BID 12/25/21 12/16/23 topiramate 100 mg tablet 100 mg PO BEDTIME 12/25/21 12/16/23 ergocalciferol (vitamin D2) 1,250 1,250 mcg PO FR@0900 01/08/22 12/16/23 mcg (50,000 unit) capsule amlodipine 5 mg tablet 5 mg PO DAILY 09/24/22 12/16/23 ascorbic acid (vitamin C) 500 mg 500 mg PO DAILY 10/06/22 12/16/23 capsule,extended release omeprazole 40 mg capsule,delayed 40 mg PO BID 01/09/23 12/16/23 release cyanocobalamin (vitamin B-12) 500 500 mcg PO DAILY 12/16/23 12/16/23 mcg tablet (Vitamin B-12) fluticasone furoate 200 2 inh inhalation DAILY 12/16/23 12/16/23 mcg-vilanterol 25 mcg/dose inhalation powder (Breo Ellipta) rosuvastatin 20 mg tablet 20 mg PO DAILY 12/16/23 12/16/23 multivitamin-iron sulfate 15 1 tab PO BEDTIME 04/15/24 mg-folic acid 400 mcg tablet (Tab-A-Bing Multivitamin w-iron) Previous Rx's ?Medication ?Instructions ?Recorded albuterol sulfate 1.25 mg/3 mL 2.5 mg (6 mL) inhalation Q4-6H PRN 10/17/22 solution for nebulization shortness of breath or wheezing 30 days #270 mL galcanezumab-gnlm 120 mg/mL 240 mg (2 mL) subcut ONCE 30 days 12/10/23 subcutaneous pen injector #2 mL (Emgality Pen) naloxone 4 mg/actuation nasal spray 4 mg intranasal Q2M PRN opioid 12/19/23 overdose 1 day #2 ea ondansetron 4 mg disintegrating 4 mg PO Q8H PRN nausea and 01/11/24 tablet vomiting #20 tabs gabapentin 300 mg capsule 300 mg PO BID 30 days #60 caps 02/13/24 amoxicillin 875 mg-potassium 1 tab PO BID 10 days #20 tabs 05/03/24 clavulanate 125 mg tablet azithromycin 250 mg tablet See Rx Instructions PO .COMPLEX #6 05/03/24 tabs Allergies Allergy/AdvReac Type Severity Reaction Status Date / Time bacitracin Allergy Mild Rash Verified 05/03/24 09:35 ibuprofen Allergy Unknown Verified 05/03/24 09:35 lisinopril Allergy Unknown Verified 05/03/24 09:35 aspirin AdvReac Mild mild Verified 05/03/24 09:35 vaginal bleeding Review of Systems Constitutional: Constitutional: Reports no additional constitutional complaints, Reports body ache(s), Denies chills, Reports fever(s) and Denies night sweats Eyes: Eyes: Reports no additional eye complaints, Denies blurry vision, Denies change in vision, Denies diplopia, Denies eye discharge, Denies loss of vision and Denies eye pain ENT: Denies dizziness and Reports sore throat Cardiovascular: Cardiovascular: Reports no additional cardiovascular complaints, Denies chest pain, Denies lightheadedness, Denies Loss of Consciousness and Denies dyspnea Respiratory: Respiratory: Reports no additional respiratory complaints, Reports cough and Denies dyspnea Gastrointestinal: Gastrointestinal: Reports no additional gastrointestinal complaints, Denies abdominal pain, Denies melena, Denies hematochezia, Denies change in bowel habits and Denies change in stool character Genitourinary: Genitourinary: Denies hematuria, Denies urinary frequency, Denies dysuria, Denies urinary incontinence, Denies urinary hesitancy and Denies urinary urgency Musculoskeletal: Musculoskeletal: Reports no additional musculoskeletal complaints, Denies numbness and Denies tingling Neurologic: Denies dizziness, Denies loss of vision, Denies numbness and Denies tingling Psychiatric: Psychiatric: Reports no additional psychiatric complaints Endocrine: Endocrine: Reports no additional endocrine complaints Hematologic/Lymphatic: Hematologic/Lymphatic: Reports no additional hematologic/lymphatic complaints Allergic/Immunologic: Allergic/Immunologic: Reports no additional allergic/immunologic complaints [facility] Past Medical History Attestation statement: The following information was validated with the patient. Source: old records reviewed and nursing notes reviewed Medical History Arthritis Peptic ulcer GERD (gastroesophageal reflux disease) CVA (cerebral vascular accident) SOB (shortness of breath) Atrial fibrillation Seizure On beta christina at home On anticoagulant therapy SANDEE (obstructive sleep apnea) Morbid obesity with BMI of 45.0-49.9, adult Gout High cholesterol Hypertension COVID-19 Osteoarthritis of knees, bilateral History of gastric ulcer Left inguinal hernia (~2013) Lab test positive for detection of COVID-19 virus (~11/2019) Bleeding disorder Asthma Surgical History History of back surgery S/P partial hysterectomy (11/10/18) H/O umbilical hernia repair (07/25/06) Hx of endoscopy Family History Family History Father Hx of diabetes insipidus Mother No problems noted. Social History Social History Household Members: Family and Children Housing: House Are you a primary rn medicare to a significant other at home: No Do you presently have visiting nurse or other home services: No Alcohol intake: never Comment: counts correct Patient Tobacco Use Status: Never used Tobacco e-Cigarette/Vaping Use: Never Used Second Hand Smoke Exposure: No Advance Directives: Yes Advance Directives on File: Yes Advance Directives Date on File: 01/24/21 Do you have a plan to hurt others: No Plan service: No Current occupational status: unemployed Current occupation: right handed Physical Exam ED Vital Signs: Vital Signs - 24 hr 05/03/24 09:34 05/03/24 14:29 Temperature 98.1 F 98.1 F Pulse Rate 74 74 Respiratory Rate 16 16 Blood Pressure 122/86 122/86 Pulse Oximetry 98 98 Oxygen Delivery Method Room Air Room Air BMI result Body Mass Index 46.5 Const General: cooperative, no acute distress, alert and awake Nutritional Appearance: well nourished Orientation/consciousness: patient oriented x3 Limitations: no limitations [facility] Head: Yes normal to inspection and Yes atraumatic Ears: hearing grossly normal bilaterally and external ears normal General nose exam: Normal external nose present, no nasal discharge noted and no epistaxis Face and sinus: Yes normal facial exam, No abrasion and No laceration Mouth: Normal oral and palatal mucosa present, no drooling and no muffled voice Eyes General: appearance normal, both eyes and all related structures Periorbital: periorbital findings normal Eyelids: Yes eyelids normal Conjunctivae: conjunctivae normal Pupils: Equal, round and reactive pupils present EOM: EOMs intact bilaterally Neck Neck: Yes normal visual inspection, Yes full ROM and Yes no lymphadenopathy Chest Chest palpation & inspection: normal inspection of the chest Resp Effort & Inspection: normal respiratory effort and able to speak in complete sentences GI Inspection: Yes normal to inspection Neuro General: patient oriented x3 and moves all extremities Cranial nerves: Yes Equal, round and reactive pupils present Cognition (Neuro): normal cognition Extrem General: Yes normal to inspection, Yes full ROM and Yes capillary refill normal Psych Appearance: grossly normal Mental Status: mental status grossly normal Affect: normal affect Attitude: cooperative Thought process: Normal thought process present Thought content: Normal thought content present Insight: Good insight present (Psych) Medications Administered Discontinued Medications Generic Name Dose Route Start Last Admin Trade Name Carroll PRN Reason Stop Dose Admin Amoxicillin/Clavulanate Potassium 875 mg 05/03/24 13:55 05/03/24 14:28 Amoxicillin/Potassium Clav 875 Mg Tablet PO 05/03/24 13:56 875 mg ONCE ONE Administration Azithromycin 500 mg 05/03/24 13:55 05/03/24 14:28 Azithromycin 500 Mg Tablet PO 05/03/24 13:56 500 mg ONCE ONE Administration Medical Decision Making Medical Decision Making MDM Narrative: Patient is a 54 year old assigned female at with a history of HTN, GERD, DDD, and migraines presenting to the emergency department today with a week of cough, fever, sore throat, and body aches. Patient's physical exam was unremarkable. Patient's COVID-19, influenza, RSV, and strep swabs were negative. Given the patient's current clinical presentation and duration of symptoms, will treat. I explained my physical exam findings as well as all test results to the patient. I answered all questions asked by the patient. I stressed the importance of the patient taking her medication as directed (either prescribed or as the over the counter packaging recommends). I stressed the importance of the patient following up with her primary care provider. I stressed the importance of the patient returning to the emergency department immediately if her symptoms were to worsen or if she were to develop any dizziness, shortness of breath, difficulty breathing, chest pain, blurry vision, loss of vision, nausea, vomiting, abdominal pain, fever, chills, back pain, or any other complaints. Patient verbalized agreement and understanding with this treatment plan and discharge. Differential Diagnosis Differential Diagnoses: The differential diagnosis associated with the presentation includes URI Bronchitis CAP Admission/Observation Consideration of admission/observation: Escalation of care including admission/observation considered Patient would have been admitted to the hospital had her work up had any findings where hospital admission was appropriate and her clinical presentation warranted hospital admission. Lab Data [facility] Lab Attestation statement: I reviewed the patient's lab results. My interpretation of these results are in the [facility] Rationale portion of this note. Labs: Lab Results 05/03/24 05/03/24 Range/Units 09:45 13:12 Influenza Type A (PCR) NEGATIVE (Negative) Influenza Type B (PCR) NEGATIVE (Negative) RSV RNA Qual (PCR) NEGATIVE (Negative) SARS-CoV-2 RNA (RT-PCR) NEGATIVE (Negative) S. pyogenes GrpA CHANTAL Negative (Negative) Prescription Management I considered prescription management with: Antibiotic (given patient's clinical presentation and duration of symptoms - will treat with ABX.) Chronic Conditions Patient?s care impacted by: Hypertension Discharge Plan Discharge Clinical Impression: Cough, Bronchitis Patient Disposition: Home, Self-Care Instructions: Acute Bronchitis (ED), Acute Cough (ED) Additional Instructions: Take your medication as prescribed. Follow up with your primary care provider. Return to the emergency department immediately if your symptoms worsen or if you develop any dizziness, shortness of breath, difficulty breathing, chest pain, blurry vision, loss of vision, nausea, vomiting, abdominal pain, fever, chills, back pain, or any other complaints. Prescriptions: New azithromycin 250 mg tablet See Rx Instructions .ROUTE .COMPLEX Qty: 6 0RF Rx Instructions: For 250 mg dose pack: take 500 mg today (day 1), then 250 mg for 4 days (days 2-5) amoxicillin-pot clavulanate 875-125 mg tablet 1 tab PO BID 10 Days Qty: 20 0RF No Action albuterol sulfate 1.25 mg/3 mL solution for nebulization 2.5 mg inhalation Q4-6H PRN (Reason: shortness of breath or wheezing) 30 Days Qty: 270 6RF naloxone 4 mg/actuation spray,non-aerosol 4 mg intranasal Q2M PRN (Reason: opioid overdose) 1 Days Qty: 2 4RF Rx Instructions: spray 1 dose into ONE nostril; alternate nostrils w each dose until help arrives gabapentin 300 mg capsule 300 mg PO BID 30 Days Qty: 60 3RF ascorbic acid (vitamin C) 500 mg capsule, extended release 500 mg PO DAILY Rx Instructions: take with iron fluticasone furoate-vilanterol [Breo Ellipta] 200-25 mcg/dose blister with device 2 inh inhalation DAILY cyanocobalamin (vitamin B-12) [Vitamin B-12] 500 mcg Tablet 500 mcg PO DAILY rosuvastatin 20 mg Tablet 20 mg PO DAILY ondansetron 4 mg tablet,disintegrating 4 mg PO Q8H PRN (Reason: nausea and vomiting) Qty: 20 0RF clonidine HCl 0.1 mg tablet 0.1 mg PO BID albuterol sulfate [ProAir HFA] 90 mcg/actuation HFA aerosol inhaler 2 puff inhalation Q6H PRN (Reason: Shortness Of Breath) cetirizine 10 mg tablet 10 mg PO BEDTIME docusate sodium [DOK] 100 mg capsule 100 mg PO BID duloxetine 30 mg capsule,delayed release(DR/EC) 30 mg PO BEDTIME montelukast 10 mg tablet 10 mg PO BEDTIME metoprolol tartrate 50 mg tablet 50 mg PO BID Eliquis 5 mg tablet 5 mg PO BID Patient Comments: pt not taking currently. has procedure on 10/08/22 losartan 100 mg tablet 100 mg PO DAILY ergocalciferol (vitamin D2) 1,250 mcg (50,000 unit) capsule 1,250 mcg PO FR@0900 furosemide 20 mg tablet 20 mg PO BID topiramate 100 mg tablet 100 mg PO BEDTIME amlodipine 5 mg tablet 5 mg PO DAILY omeprazole 40 mg capsule,delayed release(DR/EC) 40 mg PO BID Tab-A-Bing Multivitamin w-iron 15 mg iron- 400 mcg tablet 1 tab PO BEDTIME Emgality Pen 120 mg/mL pen injector 240 mg subcut ONCE 30 Days Qty: 2 0RF Rx Instructions: Loading dose: 120 mg subcu injection x2 in alternate sites (total 240 mg). To be followed by maintenance dose of 120 mg subcu q.month. Referrals: Davina Marie MD [Primary Care Provider] - Interventions: ED Discharge Assessment Last Done: 05/03/24 14:29 Discharge Date/Time: 05/03/24 14:30 Print Language: Yoruba
[2024-05-03] MEDS: Amoxicillin/Potassium Clav 875 MG TABLET PO (14:28)
[2024-05-03] MEDS: Azithromycin 500 MG TABLET PO (14:28)
[2024-05-03 14:29] VITALS: BP 122/86; PULSE 74; RESP 16; TEMP 36.7; O2SAT 98
== END 2024-05-03 14:30 | disposition home or self-care (01) ==
PROVIDERS: Physician Assistant; Emergency Provider Emergency Medicine Emergency Medical Services; PCP Student in an Organized Health Care Education/Training Program
DX: J40 Bronchitis, not specified as acute or chronic (principal); Z03.818 Encounter for observation for suspected exposure to other biological agents ruled out; R05.9 Cough, unspecified
CPT/HCPCS: 0241U; 87651; 99282; 99283

== ENCOUNTER 2024-05-24 07:28 | Outpatient (AMB) | payer MEDICAID, SELFPAY ==
--- NOTE | 2024-05-24 07:39 | MHC.OFFVIS ---
Vital Signs 05/24/24 07:40 Height 5 ft 9 in Weight 315 lb BMI 46.5 Intake Visit Reasons: 6 month f/u Intake Note: Patient presents for 6 month follow up. Allergies bacitracin Allergy (Mild, Verified 05/25/24 07:19) Rash ibuprofen Allergy (Verified 05/25/24 07:19) Unknown lisinopril Allergy (Verified 05/25/24 07:19) Unknown aspirin Adverse Reaction (Mild, Verified 05/25/24 07:19) mild vaginal bleeding Medication List - Last Reconciled 05/24/24 by EVONNE Adkins albuterol sulfate 90 mcg/actuation (ProAir HFA) 2 puffs inhalation Q6H PRN albuterol sulfate 2.5 mg (6 mL) inhalation Q4-6H PRN 30 days amlodipine 5 mg PO DAILY amoxicillin-pot clavulanate 875-125 mg 1 tab PO BID 10 days apixaban (Eliquis) 5 mg PO BID ascorbic acid (vitamin C) ER 500 mg PO DAILY azithromycin For 250 mg dose pack: take 500 mg today (day 1), then 250 mg for 4 days (days 2-5) cetirizine 10 mg PO BEDTIME clonidine HCl 0.1 mg PO BID cyanocobalamin (vitamin B-12) (Vitamin B-12) 500 mcg PO DAILY docusate sodium (DOK) 100 mg PO BID duloxetine 30 mg PO BEDTIME ergocalciferol (vitamin D2) 1,250 mcg PO FR@0900 fluticasone furoate-vilanterol 200-25 mcg/dose (Breo Ellipta) 1 inh inhalation DAILY furosemide 20 mg PO BID gabapentin 300 mg PO BID 30 days galcanezumab-gnlm (Emgality Pen) 240 mg (2 mL) subcut ONCE 30 days losartan 100 mg PO DAILY metoprolol tartrate 50 mg PO BID montelukast 10 mg PO BEDTIME multivit-iron sulf-folic acid 15 mg iron- 400 mcg (Tab-A-Bing Multivitamin w-iron) 1 tab PO BEDTIME naloxone 4 mg/actuation 4 mg intranasal Q2M PRN 1 day omeprazole 40 mg PO BID ondansetron 4 mg PO Q8H PRN rosuvastatin 20 mg PO DAILY topiramate 100 mg PO BEDTIME HPI Comments Details: 54-yr-old female presents for f/u visit for seizures and migraine. Pt is accompanied by her dtr, Bruce Snell. She could not have the brain MRI d/t presence of her spinal stimulator. She is having an every day severe migraine (30/30 migraine headache days in the last month). The migraine continues to be her typical migraine. Severe left-sided temporal headache. She notes in addition to the usual usual associated symptoms she endorsed at the last visit, she also feels numbness and tenderness along the upper bilateral frontal region, especially when pressing the area when her headaches are worse Tylenol is not helping. She never received Emgality d/t was denied by insurance. Typical headache characteristics: Prodrome symptoms: unsure Aura: unsure Pain, Location, quality, characteristics: Severe, left sided temporal pulsating pain a/w swelling, photophobia, phonophobia, osmophobia, allodynia, nausea, vomiting- sometimes, internal spinning dizziness, lightheadedness, fatigue, cognitive difficulties, activity intolerance, upper frontal numbness, LUE tingling, red eye- likes veins have popped, watery eye, facial warmth. Postdrome: drained She is having a big seizure approx every 2 weeks. Has some small episodes as well. Pt's meds are dispensed by her dtr from a prefilled med box. [facility] Medical History Arthritis Peptic ulcer GERD (gastroesophageal reflux disease) CVA (cerebral vascular accident) SOB (shortness of breath) Atrial fibrillation Seizure On beta christian at home On anticoagulant therapy SANDEE (obstructive sleep apnea) Morbid obesity with BMI of 45.0-49.9, adult Gout High cholesterol Hypertension COVID-19 Osteoarthritis of knees, bilateral History of gastric ulcer Left inguinal hernia (~2013) Lab test positive for detection of COVID-19 virus (~11/2019) Bleeding disorder Asthma Surgical History History of back surgery S/P partial hysterectomy (11/10/18) H/O umbilical hernia repair (07/25/06) Hx of endoscopy Family History Father Hx of diabetes insipidus Mother No problems noted. Social History (Reviewed 05/24/24 @ 07:42 by NATALIA Gacria Household Members: Family and Children Housing: House Are you a primary career development specialist to a significant other at home: No Do you presently have visiting nurse or other home services: No Alcohol intake: never Comment: counts correct Patient Tobacco Use Status: Never used Tobacco e-Cigarette/Vaping Use: Never Used Second Hand Smoke Exposure: No Advance Directives Date on File: 01/24/21 service: No Current occupational status: unemployed Current occupation: right handed Physical Exam Vital Signs: BMI result Body Mass Index 46.5 Const General: cooperative and no acute distress HEENT Head: Yes normocephalic Resp Effort & Inspection: normal respiratory effort and able to speak in complete sentences Neuro Other: A&O w/ STM lapses- specifically r/t medication names, medical hx. During visit, brief episode of eye blinking then rolling back- pt able to quickly break episode. Bilateral upper frontal tenderness on palpation General: gait normal and CN's II-XI intact bilaterally Cognition (Neuro): normal cognition Motor exam (neuro): 5/5 motor strength present throughout Psych Appearance: grossly normal Mental Status: mental status grossly normal Speech and movement: Normal speech and movement present Affect: normal affect Attitude: cooperative Thought process: Normal thought process present Thought content: Normal thought content present Insight: Good insight present (Psych) Judgement: Good judgement present (Psych) Assessment & Plan Assessment & Plan (1) Seizure: Code(s): R56.9 - Unspecified convulsions Category: Medical (2) Worsening headaches: Code(s): R51.9 - Headache, unspecified Category: Medical (3) Paresthesia: Code(s): R20.2 - Paresthesia of skin Category: Medical (4) Migraine with aura: Comment: ? LUE tingling is migraine sensory aura Code(s): G43.109 - Migraine with aura, not intractable, without status migrainosus Category: Medical Plan Pt advised to undergo follow-up head CT w/o to assess for secondary etiologies of atypical aura symptoms associated with migraine and headache. For convulsions: EEG- mild slowing- no evidence of epileptic activity. Continue to use CPAP nightly > 4 hrs. Continue Gabapentin 300mg bid. Future considerations- ambulatory EEG, VEEG, referral to [facility] [place] [facility]. For overall headache management: Discussed importance of good self-care, including but not limited to maintaining a healthy diet, adequate fluid intake, adequate sleep, and engaging in regular physical activity. Track headaches. Information shared on nonpharmacological treatment interventions including strategies to minimize photophobia and phonophobia. For acute migraine tx: Tylenol prn. Trial Ubrogepant (Ubrelvy) 100mg tab, 1/2 - 1 tab (50-100mg) at onset of headache, may repeat in 2 hours. Max of 2 tabs (200mg) per 24 hours. May adjunct with OTC Tylenol 650mg q 4 hours, Ibuprofen 600mg q 6 hours, or Naproxen 440mg q 12 hrs prn. Do not take w/ Butalbital (Fioricet or Fiorinal). Potential adverse effects, include but are not limited to fatigue, nausea, dry mouth, constipation Previous acute tx trials- none other Tx contraindications- all Triptans and DHE d/t CAD. NSAIDs d/t Eliquis use and ASA allergy. For migraine prevention tx: Start Riboflavin 400mg daily in am Start Magnesium 400mg daily at bedtime. Increase Topiramate from 100mg daily at bedtime to: 25mg in am and 100mg at bedtime x's 1 week then 50mg in am and 100mg at bedtime. Start Emgality 120mg/ml auto-injection: Loading dose: 240mg (2 120mg/ml autoinjections) via subcutaneous injection in 2 different sites). Then in 30 days, start Maintenance dose 120mg (120mg/ml autoinjector) subcutaneous injection every month. Patient requests injection training once Emgality available. Important considerations: Emgality will likely require insurance prior authorization prior to receiving it from the pharmacy. Potential side effects include allergic reaction and injection site reactions. Store Emgality in it's original packaging in order to protect from light. Emgality can be left out of the fridge for?up to 7 days at a temperature not above 86?F. If these conditions are exceeded, then Emgality must be thrown away. Once Emgality has been stored out of refrigeration, do not place it back in the refrigerator. Continue Metoprolol- for HTN Previous prevention tx trials- none other Tx contraindications- caution w/ aimovig or qulipta d/t constipation. would not increase BB further d/t symptomatic asthma. f/u upon review of above and in clinic in 3-6 months or sooner prn. Orders: Orders CT head/brain wo IV con 05/24/24 R51.9 - Headache, unspecified, R56.9 - Unspecified convulsions, R20.2 - Paresthesia of skin, Z96.89 - Presence of other specified functional implants Medications: New ubrogepant (Ubrelvy) take at onset of migraine, may repeat in 2hrs (may take w/ Tylenol) 50 - 100 mg (0.5 - 1 x 100 mg) PO ONCE PRN 16 tabs 6RF migraine headache 30 days magnesium oxide may hold for loose stools 400 mg PO BEDTIME 30 tabs 6RF 30 days riboflavin (vitamin B2) 400 mg PO DAILY 30 tabs 6RF 30 days topiramate 1 tab in am x's 1 week, then 2 tabs in am orally bedtime; continue 100mg QHS dose 60 tabs 3RF 30 days G43.109 - Migraine with aura, not intractable, without status migrainosus Refilled galcanezumab-gnlm (Emgality Pen) Loading dose: 120 mg subcu injection x2 in alternate sites (total 240 mg). To be followed by maintenance dose of 120 mg subcu q.month. 240 mg (2 mL) subcut ONCE 2 mL 0RF 30 days Discontinued amoxicillin-pot clavulanate 875-125 mg Discontinued Reason: Patient Completed Course 1 tab PO BID 10 days 20 tabs 0RF Coding Level of Care Code Est Pt Level 4 (32418) Diagnoses Seizure R56.9 Worsening headaches R51.9 Paresthesia R20.2 Migraine with aura G43.109
[2024-05-24 07:40] VITALS: BMI 46.5
== END 2024-05-24 08:21 | disposition home or self-care (01) ==
PROVIDERS: PCP Student in an Organized Health Care Education/Training Program; Visit Provider Nurse Practitioner Family
DX: R56.9 Unspecified convulsions (principal); R51.9 Headache, unspecified; R20.2 Paresthesia of skin; G43.109 Migraine with aura, not intractable, without status migrainosus
CPT/HCPCS: 99214

== ENCOUNTER → 2024-05-24 07:28 | Outpatient (BNVA) | payer MEDICAID, SELFPAY | PROVIDERS: PCP Student in an Organized Health Care Education/Training Program; Visit Provider Nurse Practitioner Family | DX: R56.9 Unspecified convulsions (principal); G43.109 Migraine with aura, not intractable, without status migrainosus; R20.2 Paresthesia of skin | CPT/HCPCS: 99212 ==

== ENCOUNTER 2024-05-25 06:05 | Outpatient (REF) | payer MEDICAID, SELFPAY ==
--- NOTE | ~2024-05-25 | FL_ITS ---
EXAMINATION: FLUORO GUIDANCE IN TREATMENT ROOM CLINICAL INFORMATION: Spondylosis without myelopathy or radiculopathy, lumbar region. COMPARISON: None available. TECHNIQUE: Fluoroscopy supervised by: Dr. Sukhi Soriano. Fluoroscopy time: 0.6 minutes. Cumulative Dose: 18.5 mGy. DAP: 0.323 mGy-m2 (milligray-meter squared). Images: 12. FINDINGS: [place] are present in the transforaminal position at multiple contiguous levels in the lumbosacral spine bilaterally. Contrast is injected through each needle and appears to be epidural in location FL/FL guidance in treatment room IMPRESSION: Fluoroscopy during procedure. Please see procedure report for additional information. Electronically signed by: Roosevelt Reed MD 07/14/2024 04:49 PM [facility]
== END 2024-05-25 06:06 | disposition home or self-care (01) ==
LOC: CF 06:05
PROVIDERS: Visit Provider Anesthesiology
DX: M47.816 Spondylosis without myelopathy or radiculopathy, lumbar region (principal)
CPT/HCPCS: 64493; 64494; J2003; J2795; J3301; Q9967

== ENCOUNTER 2024-05-25 07:14 | Outpatient (AMB) | payer MEDICAID, SELFPAY ==
[2024-05-25 07:19] VITALS: BP 120/76; PULSE 68; RESP 14; O2SAT 95
--- NOTE | 2024-05-25 07:19 | A.OFFVIS_ITS ---
Vital Signs 05/25/24 07:19 05/25/24 09:01 BP 120/76 140/62 H Blood Pressure Location Lt radial Lt brachial Position Sitting Sitting Respiration 14 16 Pulse 68 65 Pulse Source Pulse Oximeter Pulse Oximeter Pulse Oximetry (%) 95 96 Oxygen Delivery Method Room Air Room Air Intake Visit Reasons: BILATERAL THERAPEUTIC L3, L4, DRL5 MBB Allergies bacitracin Allergy (Mild, Verified 05/25/24 07:19) Rash ibuprofen Allergy (Verified 05/25/24 07:19) Unknown lisinopril Allergy (Verified 05/25/24 07:19) Unknown aspirin Adverse Reaction (Mild, Verified 05/25/24 07:19) mild vaginal bleeding Medication List - Last Reconciled 05/25/24 by Lucinda Gallegso LPN albuterol sulfate 90 mcg/actuation (ProAir HFA) 2 puffs inhalation Q6H PRN albuterol sulfate 2.5 mg (6 mL) inhalation Q4-6H PRN 30 days amlodipine 5 mg PO DAILY apixaban (Eliquis) 5 mg PO BID ascorbic acid (vitamin C) ER 500 mg PO DAILY azithromycin For 250 mg dose pack: take 500 mg today (day 1), then 250 mg for 4 days (days 2-5) cetirizine 10 mg PO BEDTIME clonidine HCl 0.1 mg PO BID cyanocobalamin (vitamin B-12) (Vitamin B-12) 500 mcg PO DAILY docusate sodium (DOK) 100 mg PO BID duloxetine 30 mg PO BEDTIME ergocalciferol (vitamin D2) 1,250 mcg PO FR@0900 fluticasone furoate-vilanterol 200-25 mcg/dose (Breo Ellipta) 1 inh inhalation DAILY furosemide 20 mg PO BID gabapentin 300 mg PO BID 30 days galcanezumab-gnlm (Emgality Pen) 240 mg (2 mL) subcut ONCE 30 days losartan 100 mg PO DAILY magnesium oxide 400 mg PO BEDTIME 30 days metoprolol tartrate 50 mg PO BID montelukast 10 mg PO BEDTIME multivit-iron sulf-folic acid 15 mg iron- 400 mcg (Tab-A-Bing Multivitamin w- iron) 1 tab PO BEDTIME naloxone 4 mg/actuation 4 mg intranasal Q2M PRN 1 day omeprazole 40 mg PO BID ondansetron 4 mg PO Q8H PRN riboflavin (vitamin B2) 400 mg PO DAILY 30 days rosuvastatin 20 mg PO DAILY topiramate 100 mg PO BEDTIME topiramate 1 tab in am x's 1 week, then 2 tabs in am orally bedtime; continue 100mg QHS dose 30 days ubrogepant (Ubrelvy) 50 - 100 mg (0.5 - 1 x 100 mg) PO ONCE PRN 30 days [facility] Medical History Arthritis Peptic ulcer GERD (gastroesophageal reflux disease) CVA (cerebral vascular accident) SOB (shortness of breath) Atrial fibrillation Seizure On beta christina at home On anticoagulant therapy SANDEE (obstructive sleep apnea) Morbid obesity with BMI of 45.0-49.9, adult Gout High cholesterol Hypertension COVID-19 Osteoarthritis of knees, bilateral History of gastric ulcer Left inguinal hernia (~2013) Lab test positive for detection of COVID-19 virus (~11/2019) Bleeding disorder Asthma Surgical History History of back surgery S/P partial hysterectomy (11/10/18) H/O umbilical hernia repair (07/25/06) Hx of endoscopy Family History Father Hx of diabetes insipidus Mother No problems noted. Social History Household Members: Family and Children Housing: House Are you a primary acute care nursing assistant to a significant other at home: No Do you presently have visiting nurse or other home services: No Alcohol intake: never Comment: counts correct Patient Tobacco Use Status: Never used Tobacco e-Cigarette/Vaping Use: Never Used Second Hand Smoke Exposure: No Advance Directives Date on File: 01/24/21 service: No Current occupational status: unemployed Current occupation: right handed Physical Exam Vital Signs: Last Vital Signs Pulse 65 05/25/24 09:01 Resp 16 05/25/24 09:01 BP 140/62 H 05/25/24 09:01 Pulse Ox 96 05/25/24 09:01 Oxygen Delivery Method Room Air 05/25/24 09:01 Assessment & Plan Assessment & Plan (1) Spondylosis of lumbar joint: Code(s): M47.816 - Spondylosis without myelopathy or radiculopathy, lumbar region Category: Medical Plan Therapeutic medial branch block L3,L4 dorsal ramus L5 bilateral.? ? ?Informed consent was explained to the patient. All questions were explained and? answered.? The patient was taken inside the operating room where she was positioned prone on the operating table. Time-out was performed delineating correct site, side, the nature of the procedure, patient's allergy, . All operating room staff was participating in OR time-out procedure. ? ? The lower back was prepped with ChloraPrep and draped with sterile towels.? C- arm was brought over the operating field and sq picture of L4-, L5 vertebra and S1 AREA were delineated on the screen.? Point of interest were delineated as confluence of superior articular process of L4 and L5 vertebra bilaterally with corresponding transverse processes as well as confluence of the sacral alae bilaterally with superior articular process of S1.? The projection of the point of interest to the skin were injected with the small amount of local anesthetic lidocaine 2% mixed with ropivacaine 0.5% 1-1 approcimately 1 cc.? After that 22 gauge 3.5 inch spinal needle was driven sequentially to the points of interest in tunnel vision fashion. After needles gently contacted the bone at the point of interests the needle was injected with small amount of the contrast.? The injection of the contrast did not demonstrate any intravascular or intrathecal spread of the contrast.? After that injection of the? ropivacaine 0.5%-1cc mixed with Kenalog was performed at each needle location.? Total dose of Kenalog was 80 mg. ?after that the needles were removed and Bandaids were applied. ? Upon completion of the injections? needle was? removed and sterile Band-Aids were applied.? The patient tolerated procedure very well. Orders: Orders FL guidance in treatment room Today M47.816 - Spondylosis without myelopathy or radiculopathy, lumbar region Coding Level of Care Code Procedure Only Diagnoses Spondylosis of lumbar joint M47.816
[2024-05-25 09:01] VITALS: BP 140/62; PULSE 65; RESP 16; O2SAT 96
== END 2024-05-25 09:04 | disposition home or self-care (01) ==
PROVIDERS: PCP Student in an Organized Health Care Education/Training Program; Visit Provider Anesthesiology
DX: M47.816 Spondylosis without myelopathy or radiculopathy, lumbar region (principal)
CPT/HCPCS: 64493; 64494

== ENCOUNTER 2024-06-24 09:21 | Outpatient (AMB) | payer MEDICAID, SELFPAY ==
--- NOTE | 2024-06-24 09:31 | MHC.OFFVIS ---
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 Allergies bacitracin Allergy (Mild, Verified 06/24/24 09:31) Rash ibuprofen Allergy (Verified 06/24/24 09:31) Unknown lisinopril Allergy (Verified 06/24/24 09:31) Unknown aspirin Adverse Reaction (Mild, Verified 06/24/24 09:31) mild vaginal bleeding Medication List - Last Reconciled 06/24/24 by Bella Le, CONTROL ROOM TECHNICIAN albuterol sulfate 90 mcg/actuation (ProAir HFA) 2 puffs inhalation Q6H PRN albuterol sulfate 2.5 mg (6 mL) inhalation Q4-6H PRN 30 days amlodipine 5 mg PO DAILY apixaban (Eliquis) 5 mg PO BID ascorbic acid (vitamin C) ER 500 mg PO DAILY azithromycin For 250 mg dose pack: take 500 mg today (day 1), then 250 mg for 4 days (days 2-5) cetirizine 10 mg PO BEDTIME clonidine HCl 0.1 mg PO BID cyanocobalamin (vitamin B-12) (Vitamin B-12) 500 mcg PO DAILY docusate sodium (DOK) 100 mg PO BID duloxetine 30 mg PO BEDTIME ergocalciferol (vitamin D2) 1,250 mcg PO FR@0900 fluticasone furoate-vilanterol 200-25 mcg/dose (Breo Ellipta) 1 inh inhalation DAILY furosemide 20 mg PO BID gabapentin 300 mg PO BID 30 days galcanezumab-gnlm (Emgality Pen) 240 mg (2 mL) subcut ONCE 30 days losartan 100 mg PO DAILY magnesium oxide 400 mg PO BEDTIME 30 days metoprolol tartrate 50 mg PO BID montelukast 10 mg PO BEDTIME multivit-iron sulf-folic acid 15 mg iron- 400 mcg (Tab-A-Bing Multivitamin w-iron) 1 tab PO BEDTIME naloxone 4 mg/actuation 4 mg intranasal Q2M PRN 1 day omeprazole 40 mg PO BID ondansetron 4 mg PO Q8H PRN riboflavin (vitamin B2) 400 mg PO DAILY 30 days rosuvastatin 20 mg PO DAILY topiramate 100 mg PO BEDTIME topiramate 1 tab in am x's 1 week, then 2 tabs in am orally bedtime; continue 100mg QHS dose 30 days ubrogepant (Ubrelvy) 50 - 100 mg (0.5 - 1 x 100 mg) PO ONCE PRN 30 days HPI Comments Details: Tamanna is back in my office after the performance of the bilateral therapeutic L3, L4, dorsal ramus L5 therapeutic medial branch block. She reports about 50% pain improvement, she reports good mobility and good activities of daily living. She is very satisfied with injections. It has been 1 month since the procedure. She was told that next time we can repeat this injection but not sooner than once in 3 months. She would need to give us a call and schedule an injection when her pain will come back. Possibility of radiofrequency ablation exists but she needs to turn her spinal cord stimulator machines off in the order to go for the procedure. Prior: History of chronic back pain. evere pain in bilateral lower back as well as severe pain in thoracic back slightly above the level of the scapulas approximately in bilateral rhomboid muscles projection. She states that both of the spinal cord stimulators do not cover her pain. Previously I was entertaining an idea that the pain of the patient is secondary to deviation of the spinal cord stimulator epidural leads. However today it appears to be that pain is not radicular and rather local in nature. She also states that the pain is not covered by spinal cord stimulator which would be the case if pain would be radicular. The spinal cord stimulator is positioned in proper location in the posterior cervical spine in the projection of C2-C3 C3-C4 vertebra and there are no observable deviation of the epidural leads on the the anterior posterior view in the thoracic or cervical spine. She requests me to perform therapeutic medial branch blocks for her lower lumbar pain as well as for her thoracic spine pain. She stated that therapeutic blocks which were performed for her in the past were more or less helpful for her. I explained to her risk of the steroid medications. I explained to her risks of diabetes and osteoporosis. Nevertheless the patient insisted on performing those injections. I told her to turn the spinal cord stimulator lumbar off before she would go for the L3-L4 dorsal ramus L5 bilateral therapeutic medial branch block and the same should be done for cervical spinal cord stimulator when she will go for thoracic medial branch blocks. I also will contact [facility] and we will request there opinion on whether [facility] would be acceptable way of treating Tamanna's pain in presence of spinal cord stimulators in her spine. Prior: bilateral acromioclavicular joint injection which was performed on 06/03/2023.. She reports overall 50% of pain improvement in the shoulders. She reports slightly improved mobility of the left upper extremity. However he continues to complain on swelling and pain in bilateral upper shoulders. She is interested in neuromodulation. She is asking me whether she can try the same stimulation in her neck to help her pain in his shoulders as she did for her back. Complains on cervical pain with radiation to the left upper extremity or left side of the thoracic back and even down to the left loin. She also reports associated weakness in the left upper extremity and awkwardness of left upper extremity. She is a subject of multiple interventional procedures. She recently had implantation of spinal cord stimulator to treat her lower back pain. She still reports 80% of pain improvement on spinal cord stimulator. On background of improved lower back pain the thoracic and cervical pain comes to foreground. She was a subject of x-ray of the cervical spine results of which dictated as below. [facility] Medical History Arthritis Peptic ulcer GERD (gastroesophageal reflux disease) CVA (cerebral vascular accident) SOB (shortness of breath) Atrial fibrillation Seizure On beta christina at home On anticoagulant therapy SANDEE (obstructive sleep apnea) Morbid obesity with BMI of 45.0-49.9, adult Gout High cholesterol Hypertension COVID-19 Osteoarthritis of knees, bilateral History of gastric ulcer Left inguinal hernia (~2013) Lab test positive for detection of COVID-19 virus (~11/2019) Bleeding disorder Asthma Surgical History History of back surgery S/P partial hysterectomy (11/10/18) H/O umbilical hernia repair (07/25/06) Hx of endoscopy Family History Father Hx of diabetes insipidus Mother No problems noted. Social History Household Members: Family and Children Housing: House Are you a primary customer care manager to a significant other at home: No Do you presently have visiting nurse or other home services: No Alcohol intake: never Comment: counts correct Patient Tobacco Use Status: Never used Tobacco e-Cigarette/Vaping Use: Never Used Second Hand Smoke Exposure: No Advance Directives Date on File: 01/24/21 service: No Current occupational status: unemployed Current occupation: right handed Review of Systems Const All systems reviewed & are unremarkable except as noted in HPI and below Physical Exam Vital Signs: Last Vital Signs Pulse 58 06/24/24 09:32 BP 152/75 H 06/24/24 09:32 Pulse Ox 95 06/24/24 09:32 Oxygen Delivery Method Room Air 06/24/24 09:32 Const General: no acute distress and alert Nutritional Appearance: not obese Orientation/consciousness: Other orientation findings ( oriented) HEENT Head: Yes atraumatic Eyes General: appearance normal, both eyes and all related structures Sclerae: sclerae normal EOM: EOMs intact bilaterally Neck Other: There is tenderness on palpation in the projection of the rhomboid minor and rhomboid major muscle bilaterally. Neck: No full ROM Resp Effort & Inspection: normal respiratory effort and no use of accessory muscles Back/Spine/Pelvis Other: There is tenderness on palpation in the projection of the lower back paraspinal spinal regions. Loading test is positive bilaterally. Valsalva is negative for pain increase. Brad test is negative bilaterally. Flexing backwards aggravates pain more than flexing forward. Skin General skin exam: other ( warm) Extrem General: No clubbing, No cyanosis and No edema Psych Appearance: grossly normal Mental Status: mental status grossly normal Speech and movement: Normal speech and movement present Affect: normal affect Attitude: cooperative Thought process: Normal thought process present Thought content: Normal thought content present Insight: Good insight present (Psych) Judgement: Good judgement present (Psych) Assessment & Plan Assessment & Plan (1) Spondylosis of lumbar joint: Code(s): M47.816 - Spondylosis without myelopathy or radiculopathy, lumbar region Category: Medical (2) Spondylosis, thoracic, without myelopathy: Code(s): M47.814 - Spondylosis without myelopathy or radiculopathy, thoracic region Category: Medical (3) Spinal cord stimulator status: Code(s): Z96.89 - Presence of other specified functional implants Category: Medical (4) Arthritis of both acromioclavicular joints: Code(s): M19.011 - Primary osteoarthritis, right shoulder; M19.012 - Primary osteoarthritis, left shoulder Category: Medical (5) DDD (degenerative disc disease), cervical: Code(s): M50.30 - Other cervical disc degeneration, unspecified cervical region Category: Medical (6) Cervical spondylosis: Code(s): M47.812 - Spondylosis without myelopathy or radiculopathy, cervical region Category: Medical (7) Status post insertion of spinal cord stimulator: Code(s): Z96.89 - Presence of other specified functional implants Category: Surgical Plan Good results of therapeutic medial branch blocks L3, L4, dorsal ramus L5 bilateral. About 50% pain improvement but patient is very satisfied with the injections reports better activities of daily living and better mobility. She was informed that we can repeat this procedure once in 3 months to help her pain but I would prefer to do it less frequent. She will give us a call and schedule an appointment with me. No issues with her spinal cord stimulators cervical or lumbar positioned. Reports left supraclavicular area being swollen. Probably the results of her acromioclavicular joint flares up. I recommended her to try topical medications such as BenGay because we just recently had steroid injections performed for her. Coding Level of Care Code Est Pt Level 3 (30970) Diagnoses Spondylosis of lumbar joint M47.816 Spondylosis, thoracic, without myelopathy M47.814 Spinal cord stimulator status Z96.89 Arthritis of both acromioclavicular joints M19.011; M19.012 DDD (degenerative disc disease), cervical M50.30 Cervical spondylosis M47.812 Status post insertion of spinal cord stimulator Z96.89
[2024-06-24 09:32] VITALS: BP 152/75; PULSE 58; O2SAT 95
== END 2024-06-24 09:35 | disposition home or self-care (01) ==
PROVIDERS: PCP Student in an Organized Health Care Education/Training Program; Visit Provider Anesthesiology
DX: M47.816 Spondylosis without myelopathy or radiculopathy, lumbar region (principal); M47.814 Spondylosis without myelopathy or radiculopathy, thoracic region; Z96.89 Presence of other specified functional implants; M19.011 Primary osteoarthritis, right shoulder; M19.012 Primary osteoarthritis, left shoulder; M50.30 Other cervical disc degeneration, unspecified cervical region; M47.812 Spondylosis without myelopathy or radiculopathy, cervical region
CPT/HCPCS: 99213

== ENCOUNTER → 2024-06-24 09:21 | Outpatient (BNVA) | payer MEDICAID, SELFPAY | PROVIDERS: PCP Student in an Organized Health Care Education/Training Program; Visit Provider Anesthesiology | DX: M47.816 Spondylosis without myelopathy or radiculopathy, lumbar region (principal); M47.814 Spondylosis without myelopathy or radiculopathy, thoracic region; M19.011 Primary osteoarthritis, right shoulder; M19.012 Primary osteoarthritis, left shoulder; M50.30 Other cervical disc degeneration, unspecified cervical region; M47.812 Spondylosis without myelopathy or radiculopathy, cervical region; Z96.89 Presence of other specified functional implants | CPT/HCPCS: 99212 ==

== ENCOUNTER 2024-07-02 07:30 | Outpatient (REF) | payer MEDICAID, SELFPAY ==
--- NOTE | ~2024-07-02 | CT_ITS ---
EXAMINATION: CT HEAD WITHOUT IV CONTRAST HISTORY: R51.9 - Headache, unspecified. TECHNIQUE: Unenhanced helical CT of the head was performed per standard departmental protocol. Coronal and sagittal reformats of the head were also evaluated. One or more of the following techniques was used for dose reduction: Automated exposure control, adjustment of the mA and/or kV according to patient size, use of iterative reconstruction technique. DLP: 1036 mGy-cm COMPARISON: There is an is made with the prior examination dated 10/05/2022. FINDINGS: BRAIN: The brain parenchyma is unremarkable. There is normal linder/white differentiation. The ventricular system is normal in size and configuration. There is no mass effect or midline shift. No intra- or extra-axial fluid collections are identified. SINUSES: The visualized paranasal sinuses are clear. The mastoid air cells and middle ear cavities are well pneumatized. ORBITS: The visualized orbits are unremarkable. BONES/SOFT TISSUES: The extracranial soft tissues are unremarkable. The calvarium is intact. No suspicious lytic or sclerotic lesions. CT/CT head/brain wo IV con IMPRESSION: No acute intracranial abnormality. Electronically signed by: Apolinar Myers MD 07/02/2024 08:04 AM [facility]
== END 2024-07-02 07:31 | disposition home or self-care (01) ==
LOC: HO.CT 07:30
PROVIDERS: PCP Student in an Organized Health Care Education/Training Program; Visit Provider Nurse Practitioner Family
DX: R51.9 Headache, unspecified (principal); R56.9 Unspecified convulsions; R20.2 Paresthesia of skin; Z96.89 Presence of other specified functional implants
CPT/HCPCS: 70450

== ENCOUNTER → 2024-07-02 07:32 | Outpatient (BNV) | payer MEDICAID, SELFPAY | PROVIDERS: PCP Student in an Organized Health Care Education/Training Program; Visit Provider Radiology Diagnostic Radiology | DX: R51.9 Headache, unspecified (principal) | CPT/HCPCS: 70450 ==

== ENCOUNTER 2024-09-27 08:11 | Inpatient (IN) | payer MEDICARE, MEDICAID, SELFPAY ==
[2024-09-27] VITALS (7 sets, daily range): BP systolic 116–170; BP diastolic 60–110; PULSE 66–73; RESP 15–20; TEMP 36.4–36.9; O2SAT 92–98; BMI 48.8
--- NOTE | ~2024-09-27 | CT_ITS ---
EXAMINATION: CT ABDOMEN PELVIS WITH IV CONTRAST HISTORY: abdominal pain COMPARISON: Comparison is made with the prior examination dated 01/11/2024. TECHNIQUE: CT scan of the abdomen and pelvis was performed following administration of 85 mL Omnipaque 350 using standard departmental protocol. Coronal and sagittal reformatted images were generated and reviewed. Oral contrast material was not administered at the request of the referring physician. This CT exam was performed with one or more of the following dose reduction techniques: automated exposure control, adjustment of the mA and/or kV according to patient size, use of iterative reconstruction technique. DLP: 1382 mGy-cm FINDINGS: LOWER CHEST: The visualized lung bases are clear. There is no pleural effusion. CARDIOVASCULATURE: The heart is normal in size. There is no pericardial effusion. LIVER: The liver is normal in size and contour, but demonstrates heterogeneously decreased attenuation, consistent with steatosis. No liver mass is identified. The hepatic and portal veins are patent. GALLBLADDER / BILE DUCTS: The gallbladder is unremarkable. There is no intra or extrahepatic biliary ductal dilatation. SPLEEN: The spleen is normal in size. No focal splenic lesion is identified. PANCREAS: The pancreas is unremarkable in appearance. ADRENAL GLANDS: Within normal limits. KIDNEYS/RETROPERITONEUM: Again seen is a 6 mm nonobstructing calculus at the lower pole of the left kidney. There is no hydronephrosis. There is a 2.7 cm cyst at the upper pole of the left kidney and a 3.1 cm cyst in the interpolar region. There is a probable subcentimeter cyst at the lower pole of the right kidney. LYMPH NODES: No abdominal or pelvic lymphadenopathy. VASCULATURE: The abdominal aorta is normal in caliber. MESENTERY/PERITONEUM: No free fluid. No masses. There is no free intraperitoneal gas. STOMACH: The stomach is unremarkable. SMALL BOWEL: The small bowel is normal in caliber. COLON: There is diverticulosis of the descending and sigmoid colon, without evidence of diverticulitis. APPENDIX: Normal. URINARY BLADDER/PELVIC ORGANS: The urinary bladder is unremarkable. The uterus is unremarkable. BONES / SOFT TISSUES: No suspicious bony or soft tissue abnormalities. Spinal stimulators are again seen in place. CT/CT abdomen pelvis w IV con IMPRESSION: Hepatic steatosis. 6 mm nonobstructing left renal calculus. Diverticulosis of the descending and sigmoid colon, without evidence of diverticulitis. No acute abnormality is identified. Electronically signed by: Apolinar Myers MD 09/27/2024 10:19 AM EDT
--- NOTE | ~2024-09-27 | CT_ITS ---
EXAMINATION: CT HEAD WITHOUT CONTRAST CLINICAL INFORMATION: Headache, anticoagulated. COMPARISON: 07/02/2024, 10/05/2022. TECHNIQUE: Contiguous axial imaging was performed from the skull base to vertex without intravenous administration of contrast. This CT examination was performed using dose optimization techniques as appropriate, variously including the following: *Automated exposure control *Adjustment of mA and/or kV according to patient size (this includes techniques or standardized protocols for targeted exams where dose is matched to indication/reason for exam; i.e. extremities or head) *Use of iterative reconstruction technique FINDINGS: The tentorium and dural reflections are somewhat hyperattenuating, most likely on the basis of recent contrast administration for a CT abdomen and pelvis performed 1 hour earlier. This limits the sensitivity for detection of subtle hemorrhage. There is no evidence of intracranial hemorrhage or extra-axial fluid collection. There is no mass effect, or edema. No CT evidence of acute territorial infarct. Ventricles, sulci, and cisterns are normal in size and configuration for patient age. No hydrocephalus. No midline shift. Negative hyperdense MCA sign. Negative insular ribbon sign. No significant white matter abnormalities. Globes and orbital contents demonstrate mild proptosis. There are otherwise normal. No extracranial soft tissue abnormalities. The paranasal sinuses, mastoid air cells, and tympanic cavities are normally aerated. No suspicious bony abnormalities. There are no acute fractures evident. CT/CT head/brain wo IV con IMPRESSION: 1. The tentorium and dural reflections are somewhat hyperattenuating, most likely on the basis of recent contrast administration for a CT abdomen and pelvis performed 1 hour earlier. This limits the sensitivity for detection of subtle hemorrhage. Within these confines, no definite intracranial hemorrhage or mass effect. 2. No acute intracranial abnormality. Electronically signed by: Chacorta Lugo MD 09/27/2024 11:31 AM EDT
--- NOTE | 2024-09-27 08:14 | ED_ITS ---
HPI - General Adult General Chief complaint: Abdominal Pain Stated complaint: 03/25 abd pain, N/V, severe headache x3 days Time Seen by Provider: 09/27/24 08:14 Source: patient and EMS Mode of arrival: EMS Limitations: no limitations History of Present Illness ED Provider: Lucinda Black PA-C HPI narrative: 54 yo female with PMH of asthma, atrial fibrillation on apixiban, CVA, neuropathy, degenerative disc disease, cervical positioned spinal cord stimulator, HTN, HLD, seizures, SANDEE on CPAP, migraines, anemia, chronic pain syndrome, GERD, presenting to the ED c/o severe 10/10 abdominal pain, headache, and N/V x 3 days. Reports was sitting on the couch when suddenly developed nonradiating diffuse cramping/sharp abdominal pain, with associated N/V, fevers (Tmax 103 F), headache/migraine that has persisted x 3 days. Reports has had high BP last few, d/t in ability to tolerate PO and take meds. Denies lightheadedness, dizziness, diarrhea, blood in vomit, dysuria/hematuria, numbness/tingling, recent illness/sick contacts. Last BM yesterday, soft/brown. Denies drugs, alcohol, cigarette smoking. Onset (ago): day(s) Location: abdomen Radiation: non-radiation Quality: sharp and other (cramping) Pain Consistency: constant Relieving factors: none Exacerbating factors: none Associated symptoms: fever/chills and headaches Treatments prior to arrival: none Related Data Home Medications ?Medication ?Instructions ?Recorded ?Confirmed cetirizine 10 mg tablet 10 mg PO BEDTIME 04/27/20 09/27/24 duloxetine 30 mg capsule,delayed 30 mg PO BEDTIME 04/27/20 09/27/24 release metoprolol tartrate 50 mg tablet 50 mg PO BID 04/27/20 09/27/24 montelukast 10 mg tablet 10 mg PO BEDTIME 04/27/20 09/27/24 clonidine HCl 0.1 mg tablet 0.1 mg PO BID 06/05/20 09/27/24 apixaban 5 mg tablet (Eliquis) 5 mg PO BID 06/28/20 09/27/24 losartan 100 mg tablet 100 mg PO DAILY 06/28/20 09/27/24 furosemide 20 mg tablet 20 mg PO BID 12/25/21 06/24/24 ergocalciferol (vitamin D2) 1,250 1,250 mcg PO FR@0900 01/08/22 09/27/24 mcg (50,000 unit) capsule amlodipine 5 mg tablet 5 mg PO DAILY 09/24/22 09/27/24 ascorbic acid (vitamin C) 500 mg 500 mg PO DAILY 10/06/22 06/24/24 capsule,extended release omeprazole 40 mg capsule,delayed 40 mg PO BID 01/09/23 09/27/24 release cyanocobalamin (vitamin B-12) 500 500 mcg PO DAILY 12/16/23 06/24/24 mcg tablet (Vitamin B-12) rosuvastatin 20 mg tablet 20 mg PO DAILY 12/16/23 09/27/24 multivitamin-iron sulfate 15 1 tab PO BEDTIME 04/15/24 09/27/24 mg-folic acid 400 mcg tablet (Tab-A-Bing Multivitamin w-iron) albuterol sulfate 2.5 mg/3 mL 2.5 mg inhalation Q4H PRN 09/27/24 09/27/24 (0.083 %) solution for nebulization Respiratory Distress albuterol sulfate 90 mcg/actuation 2 puff inhalation Q4-6H PRN 09/27/24 09/27/24 aerosol inhaler Respiratory Distress docusate sodium 100 mg capsule 100 mg PO BID 09/27/24 09/27/24 ferrous sulfate 325 mg (65 mg 325 mg PO DAILY 09/27/24 09/27/24 iron) tablet fluticasone propionate 230 2 puff inhalation BID 09/27/24 09/27/24 mcg-salmeterol 21 mcg/actuation HFA inhaler (Advair HFA) Previous Rx's ?Medication ?Instructions ?Recorded naloxone 4 mg/actuation nasal spray 4 mg intranasal Q2M PRN opioid 12/19/23 overdose 1 day #2 ea ondansetron 4 mg disintegrating 4 mg PO Q8H PRN nausea and 01/11/24 tablet vomiting #20 tabs azithromycin 250 mg tablet See Rx Instructions PO .COMPLEX #6 05/03/24 tabs magnesium oxide 400 mg (241.3 mg 400 mg PO BEDTIME 30 days #30 tabs 05/24/24 magnesium) tablet riboflavin (vitamin B2) 400 mg 400 mg PO DAILY 30 days #30 tabs 05/24/24 tablet ubrogepant 100 mg tablet (Ubrelvy) 50 - 100 mg (0.5 - 1 x 100 mg) PO 05/24/24 ONCE PRN migraine headache 30 days #16 tabs gabapentin 300 mg capsule 300 mg PO BID 30 days #60 caps 06/15/24 topiramate 100 mg tablet 100 mg PO BEDTIME 30 days #30 tabs 09/10/24 topiramate 25 mg tablet 50 mg (2 x 25 mg) PO DAILY 30 days 09/27/24 #60 tabs Allergies Allergy/AdvReac Type Severity Reaction Status Date / Time bacitracin Allergy Mild Rash Verified 09/27/24 08:26 ibuprofen Allergy Unknown Verified 09/27/24 08:26 lisinopril Allergy Unknown Verified 09/27/24 08:26 aspirin AdvReac Mild mild Verified 09/27/24 08:26 vaginal bleeding Review of Systems 2 Constitutional: Constitutional: Reports no additional constitutional complaints, Denies chills, Reports fever(s) (T max 103), Reports headache(s) and Denies night sweats Eyes: Eyes: Reports no additional eye complaints, Denies blurry vision, Denies change in vision, Denies diplopia, Denies eye discharge, Denies loss of vision and Denies eye pain ENT: Denies dizziness and Reports headache(s) Cardiovascular: Cardiovascular: Reports no additional cardiovascular complaints, Denies chest pain, Denies lightheadedness, Denies Loss of Consciousness and Denies dyspnea Respiratory: Respiratory: Reports no additional respiratory complaints and Denies dyspnea Gastrointestinal: Gastrointestinal: Reports no additional gastrointestinal complaints, Reports abdominal pain, Denies melena, Denies hematochezia, Denies change in bowel habits, Denies change in stool character, Reports nausea and Reports vomiting Genitourinary: Genitourinary: Denies hematuria, Denies urinary frequency, Denies dysuria, Denies urinary incontinence, Denies urinary hesitancy and Denies urinary urgency Musculoskeletal: Musculoskeletal: Reports no additional musculoskeletal complaints, Denies numbness and Denies tingling Neurologic: Denies dizziness, Reports headache(s), Denies loss of vision, Denies numbness and Denies tingling Psychiatric: Psychiatric: Reports no additional psychiatric complaints Endocrine: Endocrine: Reports no additional endocrine complaints Hematologic/Lymphatic: Hematologic/Lymphatic: Reports no additional hematologic/lymphatic complaints Allergic/Immunologic: Allergic/Immunologic: Reports no additional allergic/immunologic complaints PMFSH Past Medical History Attestation statement: The following information was validated with the patient. Source: old records reviewed and nursing notes reviewed Medical History Arthritis Peptic ulcer GERD (gastroesophageal reflux disease) CVA (cerebral vascular accident) SOB (shortness of breath) Atrial fibrillation Seizure On beta christina at home On anticoagulant therapy SANDEE (obstructive sleep apnea) Morbid obesity with BMI of 45.0-49.9, adult Gout High cholesterol Hypertension COVID-19 Osteoarthritis of knees, bilateral History of gastric ulcer Left inguinal hernia (~2013) Lab test positive for detection of COVID-19 virus (~11/2019) Bleeding disorder Asthma Surgical History History of back surgery S/P partial hysterectomy (11/10/18) H/O umbilical hernia repair (07/25/06) Hx of endoscopy Family History Family History Father Hx of diabetes insipidus Mother No problems noted. Social History Social History Household Members: Family and Children Housing: House Are you a primary manager primary care to a significant other at home: No Do you presently have visiting nurse or other home services: No Alcohol intake: never Comment: counts correct Patient Tobacco Use Status: Never used Tobacco Smoked in Last 30 Days: No e-Cigarette/Vaping Use: Never Used Second Hand Smoke Exposure: No Advance Directives: Yes Advance Directives on File: Yes Advance Directives Date on File: 01/24/21 Patient : No service: No Current occupational status: unemployed Current occupation: right handed Physical Exam ED Vital Signs: Vital Signs - 24 hr 09/27/24 08:23 09/27/24 10:21 09/27/24 11:23 Temperature 98.5 F 98.0 F Pulse Rate 68 73 Respiratory Rate 20 20 15 Blood Pressure 147/89 H 123/70 Pulse Oximetry 97 92 Oxygen Delivery Method Room Air Room Air BMI result Body Mass Index 48.8 Const General: cooperative, no acute distress, alert and awake Nutritional Appearance: well nourished Orientation/consciousness: patient oriented x3 Limitations: no limitations [facility] Head: Yes normal to inspection and Yes atraumatic Ears: hearing grossly normal bilaterally and external ears normal General nose exam: Normal external nose present, no nasal discharge noted and no epistaxis Face and sinus: Yes normal facial exam, No abrasion and No laceration Mouth: Normal oral and palatal mucosa present, no drooling and no muffled voice Eyes General: appearance normal, both eyes and all related structures Periorbital: periorbital findings normal Eyelids: Yes eyelids normal Conjunctivae: conjunctivae normal Pupils: Equal, round and reactive pupils present EOM: EOMs intact bilaterally Neck Neck: Yes normal visual inspection, Yes full ROM and Yes no lymphadenopathy Chest Chest palpation & inspection: normal inspection of the chest Resp Effort & Inspection: normal respiratory effort and able to speak in complete sentences GI Inspection: Yes normal to inspection Palpation (GI): Soft to palpation, not firm, Tenderness to palpation present (GI) (diffusely), no guarding and not rigid Neuro General: patient oriented x3, moves all extremities and CN's II-XI intact bilaterally Cranial nerves: Yes Equal, round and reactive pupils present Cognition (Neuro): normal cognition Extrem General: Yes normal to inspection, Yes full ROM and Yes capillary refill normal Psych Appearance: grossly normal Mental Status: mental status grossly normal Affect: normal affect Attitude: cooperative Thought process: Normal thought process present Thought content: Normal thought content present Insight: Good insight present (Psych) Medications Administered Discontinued Medications Generic Name Dose Route Start Last Admin Trade Name Freq PRN Reason Stop Dose Admin Diazepam 5 mg 09/27/24 11:20 09/27/24 11:29 Diazepam 10 Mg/2 Ml Cartridge IVPUSH 09/27/24 11:21 5 mg STAT STA Administration Hydromorphone HCl 1 mg 09/27/24 10:06 09/27/24 10:21 Hydromorphone Hcl 1 Mg/Ml Syringe IVPUSH 09/27/24 10:07 1 mg ONCE ONE Administration Protocol Sodium Chloride 1,000 mls @ 999 mls/hr 09/27/24 08:45 09/27/24 11:29 Ns IV 09/27/24 09:45 Infused .Q1H1M ISMA Infusion Iohexol 100 ml 09/27/24 09:58 09/27/24 09:58 Iohexol 350 Mg/Ml 100 Ml Infus..Btl IV 09/27/24 09:59 100 ml ONCE ONE Administration Morphine Sulfate 4 mg 09/27/24 08:27 09/27/24 08:43 Morphine Sulfate 4 Mg/Ml Cartridge IVPUSH 09/27/24 08:28 4 mg ONCE ONE Administration Protocol Ondansetron HCl 4 mg 09/27/24 08:27 09/27/24 08:43 Ondansetron Hcl 4 Mg/2 Ml Vial IVPUSH 09/27/24 08:28 4 mg ONCE ONE Administration Pantoprazole Sodium 40 mg 09/27/24 08:27 09/27/24 09:03 Pantoprazole Sodium 40 Mg/10 Ml Vial IVPUSH 09/27/24 08:28 40 mg ONCE ONE Administration Medical Decision Making Medical Decision Making [facility] Narrative: Patient is a 54 year old assigned female at with a history of atrial fib on Eliquis, HTN, migraines, DDD, CPS, anemia, depression, and OA presenting to the emergency department today with a headache, abdominal pain, nausea, and vomiting. Patient's physical exam was as noted in the physical exam portion of this note. Patient's blood work showed mild WBC elevation of 14.8 but otherwise unremarkable. Patient's urine showed no acute process. Patient's EKG was unremarkable. Patient's CT head and abdomen/pelvis showed no acute process. I explained my physical exam findings as well as all test results to the patient. I answered all questions asked by the patient. Patient was given multiple doses of IV pain medication however, the patient's pain persisted. I spoke with the hospitalist team who agreed to admission for intractable abdominal pain. Patient verbalized agreement and understanding with this treatment plan and admission. Differential Diagnosis Differential Diagnoses: The differential diagnosis associated with the presentation includes Abdominal pain Intractable pain Admission/Observation Consideration of admission/observation: Escalation of care including admission/observation considered Patient admitted as noted in the MDM Rationale portion of this note. Consult Healthcare Provider Management of the patient was discussed with: Hospitalist (agreed to admission as noted in the MDM Rationale portion of this note. ) Lab Data [facility] Lab Attestation statement: I reviewed the patient's lab results. My interpretation of these results are in the MDM Rationale portion of this note. 09/27/24 08:39 09/27/24 08:39 Labs: Lab Results 04/14/25 04/14/25 Range/Units 08:39 10:30 WBC 14.8 H (4.8-10.8) X10*3/uL RBC 4.84 (4.20-5.50) X10*6/uL Hgb 14.5 (12.0-16.0) g/dl Hct 43.6 (37.0-47.0) % MCV 90.1 (80.0-98.0) fL MCH 30.0 (27.0-33.0) pg MCHC 33.3 (31.0-35.0) g/dl RDW 13.7 (11.0-16.0) % Plt Count 473 H (160-400) X10*3/uL MPV 10.2 (9.4-12.3) fL Immature Gran % (Auto) 0.4 (0.0-0.4) % Neut % (Auto) 65.6 (45-73) % Lymph % (Auto) 26.6 (20-40) % [place] % (Auto) 5.5 (2-11) % Eos % (Auto) 1.6 (0-4) % Baso % (Auto) 0.3 (0-2) % Lymph # (Auto) 3.9 (1.2-4.9) X10*3/uL [place] # (Auto) 0.8 (0.1-1.2) X10*3/uL Eos # (Auto) 0.2 (0.0-0.4) X10*3/uL Baso # (Auto) 0.1 (0.0-0.2) X10*3/uL Abs Immat Gran (auto) 0.06 H (0.00-0.03) X10*3/uL Absolute Neuts (auto) 9.7 H (2.0-8.3) x10*3/uL Absolute Nucleated RBC 0.000 (0.0-0.012) X10*3/uL Nucleated RBC % (auto) 0.0 (0.0-0.2) /100WBC Sodium 139 (135-145) mmol/L Potassium 4.0 (3.3-5.1) mmol/L Chloride 108 (96-108) mmol/L Carbon Dioxide 24 (22-29) mmol/L Anion Gap 11 L (12-20) BUN 20 H (9-16) mg/dL Creatinine 0.76 (0.5-1.4) mg/dL Estim Creat Clear Calc 136.3 Estimated GFR > 60 Random Glucose 108 (60-115) mg/dL Calcium 9.3 (8.4-10.2) mg/dL Magnesium 2.0 (1.6-2.6) mg/dL Total Bilirubin 0.3 (0.0-1.0) mg/dL AST 39 H (5-31) U/L ALT 39 H (0-31) U/L Alkaline Phosphatase 150 H (39-117) U/L Troponin I High Sens < 2.7 (<3.5-17.0) ng/L Total Protein 8.3 H (6.5-8.0) g/dL Albumin 4.3 (3.5-5.0) g/dL Urine Color Dark Yellow Urine Appearance Clear Urine pH 8.0 (5.0-9.0) Ur Specific [place] >= 1.030 H (1.005-1.025) Urine Protein Trace (Neg-Trace) mg/dL Urine Glucose (UA) Negative (Negative) mg/dL Urine Ketones Negative (Negative) mg/dL Urine Blood Negative (Negative) Urine Nitrite Negative (Negative) Ur Leukocyte Esterase Negative (Negative) Influenza Type A (PCR) NEGATIVE (Negative) Influenza Type B (PCR) NEGATIVE (Negative) RSV RNA Qual (PCR) NEGATIVE (Negative) SARS-CoV-2 RNA (RT-PCR) NEGATIVE (Negative) Independent Interpretation I performed an independent interpretation of an: EKG and CT Scan Interpretation: My interpretation is in agreement with the radiologist's impression of these imaging studies. L Report Number: [id number]: Total DLP = 1382.00 mGy-cm EXAMINATION: CT ABDOMEN PELVIS WITH IV CONTRAST HISTORY: abdominal pain COMPARISON: Comparison is made with the prior examination dated 01/11/2024. TECHNIQUE: CT scan of the abdomen and pelvis was performed following administration of 85 mL Omnipaque 350 using standard departmental protocol. Coronal and sagittal reformatted images were generated and reviewed. Oral contrast material was not administered at the request of the referring physician. This CT exam was performed with one or more of the following dose reduction techniques: automated exposure control, adjustment of the mA and/or kV according to patient size, use of iterative reconstruction technique. DLP: 1382 mGy-cm FINDINGS: LOWER CHEST: The visualized lung bases are clear. There is no pleural effusion. CARDIOVASCULATURE: The heart is normal in size. There is no pericardial effusion. LIVER: The liver is normal in size and contour, but demonstrates heterogeneously decreased attenuation, consistent with steatosis. No liver mass is identified. The hepatic and portal veins are patent. GALLBLADDER / BILE DUCTS: The gallbladder is unremarkable. There is no intra or extrahepatic biliary ductal dilatation. SPLEEN: The spleen is normal in size. No focal splenic lesion is identified. PANCREAS: The pancreas is unremarkable in appearance. ADRENAL GLANDS: Within normal limits. KIDNEYS/RETROPERITONEUM: Again seen is a 6 mm nonobstructing calculus at the lower pole of the left kidney. There is no hydronephrosis. There is a 2.7 cm cyst at the upper pole of the left kidney and a 3.1 cm cyst in the interpolar region. There is a probable subcentimeter cyst at the lower pole of the right kidney. LYMPH NODES: No abdominal or pelvic lymphadenopathy. VASCULATURE: The abdominal aorta is normal in caliber. MESENTERY/PERITONEUM: No free fluid. No masses. There is no free intraperitoneal gas. STOMACH: The stomach is unremarkable. SMALL BOWEL: The small bowel is normal in caliber. COLON: There is diverticulosis of the descending and sigmoid colon, without evidence of diverticulitis. APPENDIX: Normal. URINARY BLADDER/PELVIC ORGANS: The urinary bladder is unremarkable. The uterus is unremarkable. BONES / SOFT TISSUES: No suspicious bony or soft tissue abnormalities. Spinal stimulators are again seen in place. CT/CT abdomen pelvis w IV con IMPRESSION: Hepatic steatosis. 6 mm nonobstructing left renal calculus. Diverticulosis of the descending and sigmoid colon, without evidence of diverticulitis. No acute abnormality is identified. Electronically signed by: Apolinar Myers MD 09/27/2024 10:19 AM EDT Dictated By: Apolinar Myers MD Signed By: Electronically signed by Apolinar Myers MD 09/27/24 1019 Report Number: [id number]: Total DLP = 898.00 mGy-cm EXAMINATION: CT HEAD WITHOUT CONTRAST CLINICAL INFORMATION: Headache, anticoagulated. COMPARISON: 07/02/2024, 10/05/2022. TECHNIQUE: Contiguous axial imaging was performed from the skull base to vertex without intravenous administration of contrast. This CT examination was performed using dose optimization techniques as appropriate, variously including the following: *Automated exposure control *Adjustment of mA and/or kV according to patient size (this includes techniques or standardized protocols for targeted exams where dose is matched to indication/reason for exam; i.e. extremities or head) *Use of iterative reconstruction technique FINDINGS: The tentorium and dural reflections are somewhat hyperattenuating, most likely on the basis of recent contrast administration for a CT abdomen and pelvis performed 1 hour earlier. This limits the sensitivity for detection of subtle hemorrhage. There is no evidence of intracranial hemorrhage or extra-axial fluid collection. There is no mass effect, or edema. No CT evidence of acute territorial infarct. Ventricles, sulci, and cisterns are normal in size and configuration for patient age. No hydrocephalus. No midline shift. Negative hyperdense MCA sign. Negative insular ribbon sign. No significant white matter abnormalities. Globes and orbital contents demonstrate mild proptosis. There are otherwise normal. No extracranial soft tissue abnormalities. The paranasal sinuses, mastoid air cells, and tympanic cavities are normally aerated. No suspicious bony abnormalities. There are no acute fractures evident. CT/CT head/brain wo IV con IMPRESSION: 1. The tentorium and dural reflections are somewhat hyperattenuating, most likely on the basis of recent contrast administration for a CT abdomen and pelvis performed 1 hour earlier. This limits the sensitivity for detection of subtle hemorrhage. Within these confines, no definite intracranial hemorrhage or mass effect. 2. No acute intracranial abnormality. Electronically signed by: Chacorta Lugo MD 09/27/2024 11:31 AM EDT Dictated By: Chacorta Lugo MD Signed By: Electronically signed by Chacorta Lugo MD 09/27/24 1131 I independently interpreted this EKG and am in agreement with the below findings: Vent. Rate: 66 BPM Atrial Rate: 66 BPM P-R Int: 144 ms QRS Dur: 96 ms QT Int: 426 ms P-R-T Axes: 54 -45 6 degrees QTcB Int: 446 ms Normal sinus rhythm Incomplete right bundle branch block Left anterior fascicular block Minimal voltage criteria for LVH, may be normal variant (Priddy product) When compared with ECG of 16-May-2023 16:47, No significant change was found Referred By: Lucinda Black Electronically Signed By: DANIEL SNIDER MD Dictated By: Daniel Snider MD Signed By: Electronically signed by Daniel Snider MD 09/27/24 1316 Radiology Impression Discussion of test interpretation with radiology: I have reviewed the radiologist's reading. Independent Historian Clinical information obtained from an independent historian. History obtained from or confirmed by: EMS (EMS provided additional history and confirmed the history provided by the patient. ) Critical Care Time Critical Care Time Critical Care Time: Yes Total Critical Care Time: 48 Attestation: I spent 48 minutes of Critical Care Time with this patient. This does not include time spent on separately reported billable procedures. Discharge Plan Discharge Clinical Impression: Abdominal pain Patient Disposition: Admitted As Inpatient
--- NOTE | 2024-09-27 08:27 | ECG_ITS ---
Test Reason : cp Blood Pressure : */* mmHG Vent. Rate : 66 BPM Atrial Rate : 66 BPM P-R Int : 144 ms QRS Dur : 96 ms QT Int : 426 ms P-R-T Axes : 54 -45 6 degrees QTcB Int : 446 ms Normal sinus rhythm Incomplete right bundle branch block Left anterior fascicular block Minimal voltage criteria for LVH, may be normal variant ( Zach product ) Abnormal ECG When compared with ECG of 16-May-2023 16:47, No significant change was found Referred By: Lucinda Black Electronically Signed By: MALENA SNIDER MD
[2024-09-27 08:43] LABS: MANUAL DIFF FLAG NO
[2024-09-27] MEDS: ondansetron HCL 4 MG/2 ML VIAL IVPUSH ×2 (08:43→16:37)
[2024-09-27] MEDS: Morphine Sulfate 4 MG/ML CARTRIDGE IVPUSH (08:43)
[2024-09-27] MEDS: 0.9 % Sodium Chloride 1,000 ML 999 ML IV (08:43)
[2024-09-27 08:44] LABS: Basophils Absolute Auto 0.1 X10*3/uL (0.0-0.2); Basophils Percent Auto 0.3 % (0-2); Eosinophils Absolute Auto 0.2 X10*3/uL (0.0-0.4); Eosinophils Percent Auto 1.6 % (0-4); Hematocrit 43.6 % (37.0-47.0); Hemoglobin 14.5 g/dl (12.0-16.0); Imm Gran Abs Auto 0.06 X10*3/uL (0.00-0.03); Imm Gran Pct Auto 0.4 % (0.0-0.4); Lymphocytes Absolute Auto 3.9 X10*3/uL (1.2-4.9); Lymphocytes Percent Auto 26.6 % (20-40); Mean Corpuscular HGB Conc 33.3 g/dl (31.0-35.0); Mean Corpuscular Volume 90.1 fL (80.0-98.0); Mean Platelet Volume 10.2 fL (9.4-12.3); Monocytes Absolute Auto 0.8 X10*3/uL (0.1-1.2); Monocytes Percent Auto 5.5 % (2-11); Neutrophils Absolute Auto 9.7 x10*3/uL (2.0-8.3); Neutrophils Percent Auto 65.6 % (45-73); Platelet Count 473 X10*3/uL (160-400); Red Blood Count 4.84 X10*6/uL (4.20-5.50); Red Cell Distribution Width 13.7 % (11.0-16.0); White Blood Count 14.8 X10*3/uL (4.8-10.8)
[2024-09-27] MEDS: Pantoprazole Sodium 40 MG/10 ML VIAL IVPUSH (09:03)
[2024-09-27 09:04] LABS: Albumin Level 4.3 g/dL (3.5-5.0); Alkaline Phosphatase 150 U/L (39-117); Anion Gap 11 (12-20); Aspartate Amino Transferase 39 U/L (5-31); Bilirubin Total 0.3 mg/dL (0.0-1.0); Blood Urea Nitrogen 20 mg/dL (9-16); Calcium 9.3 mg/dL (8.4-10.2); Carbon Dioxide 24 mmol/L (22-29); Chloride 108 mmol/L (96-108); Creatinine Clr Calc Pharmacy 136.3; Estimated Glomerular Filt Rate > 60; Glucose Random 108 mg/dL (60-115); Sodium 139 mmol/L (135-145); Total Protein 8.3 g/dL (6.5-8.0)
[2024-09-27 09:09] LABS: Troponin-I High Sensitivity < 2.7 ng/L (<3.5-17.0)
[2024-09-27 09:16] LABS: Alanine Aminotransferase 39 U/L (0-31)
[2024-09-27 09:36] LABS: Influenza A PCR NEGATIVE (Negative); Influenza B PCR NEGATIVE (Negative); Resp Syncy Virus RNA Qual PCR NEGATIVE (Negative); SARS COV2 PCR INHOUSE NEGATIVE (Negative)
--- NOTE | 2024-09-27 09:49 | PC.NURSE ---
Away for CT scan at this time. This RN assumes care of this patient, received report from Keke MORENO.
--- OUTSIDE RECORDS SUMMARY | 2024-09-27 09:49 | XMS_ITS | Clinical Summary ---
Author Organization [facility] Address [address] [place] [address] Care Team Providers Care Radiation Physicist Name Role Phone Davina Marie Primary Care Provider Unavailabl e Allergies Active Allergy Reactions Severity Noted Date Comments Aspirin 05/21/2019 Medications Medication Sig Dispensed Refills Start Date End Date Status norethindrone (JOAQUIN) 0.35 MG tablet Take 1 Tab by mouth daily for 360 days. 90 Tab 3 09/07/2020 Active atorvastatin (LIPITOR) 40 MG tablet Take 40 mg by mouth daily. 0 Active cetirizine (ZYRTEC) 10 MG tablet Take 10 mg by mouth daily. 0 Active clonidine-chlorthalido ne (CLORPRES) 0.1-15 MG per tablet Take 1 tablet by mouth 2 times daily. 0 Active docusate sodium (COLACE) 100 MG capsule Take 100 mg by mouth 2 times daily. 0 Active duloxetine (CYMBALTA) 30 MG capsule Take 30 mg by mouth daily. 0 Active Apixaban 5 MG Tab Take by mouth. 0 Act yohana losartan (COZAAR) 100 MG tablet Take 100 mg by mouth daily. 0 Active Metoprolol-Hydrochloro thiazide 50-12.5 MG TABLET SR 24 HR Take by mouth. 0 Activ e montelukast (SINGULAIR) 10 MG tablet Take 10 mg by mouth at bedtime. 0 Active omeprazole (PRILOSEC) 40 MG capsule Take 40 mg by mouth daily. 0 Active topiramate (TOPAMAX) 25 MG tablet Take 25 mg by mouth 2 times daily. 0 Active vitamin D (ERGOCALCIFEROL) 1.25 MG (86676 UT) capsule Take 50,000 Units by mouth once a week. 0 Active Active Problems Problem Noted Date Ovarian torsion 05/21/2019 Overview: October 2018: surgery for ovarian torsion at [facility] in [place] Family History Medical History Relation Name Comments homicide Mother CA Breast Negative Hx CA Colon Negative Hx CA Ovarian Negative Hx CA of Pancreas Negative Hx Uterine Cancer Negative Hx Relation Name Status Comments Brother 1 Alive Brother 2 Alive Brother 3 Alive Brother 4 Father Alive Mother Sister 1 half Alive Sister 2 half Alive Sister 3 Alive Sister 4 Alive Social History Tobacco Use Types Packs/Day Years Used Date Smoking Tobacco: Never Smokeless Tobacco: Never Alcohol Use Standard Drinks/Week Comments No 0 (1 standard drink = 0.6 oz pur e alcohol) Alcohol Habits Answer Date Recorded How often do you have a drink containing alcohol ? Never 05/21/2019 How many drinks containing a lcohol do you have on a typical day when you are drinking? Not asked How often do you have six or more drinks on one occasion? Not asked Physical Activity Answer Date Recorded On average, how many days pe r week do you engage in moderate to strenuous exercise (like walking fast, running, jogging, dancing, swimming, biking, or other activities that cause a light or heavy sweat)? 0 days 05/21/2019 On average, how many minutes do you engage in exercise at this level? 0 min 05/21/2019 Stress Answer Date Recorded Do you feel stress - tense, restless, nervous, or anxious, or unable to sleep at night because your mind is troubled all the time - these days? Not at all 05/21/2019 Intimate Partner Violence Answer Date R ecorded Within the last year, have y ou been afraid of your partner or ex-partner? No 05/21/2019 Within the last year, have y ou been humiliated or emotionally abused in other ways by your partner or ex-partner? No Within the last year, have y ou been kicked, hit, slapped, or otherwise physically hurt by your partner or ex-partner? No 05/21/2019 Within the last year, have y ou been raped or forced to have any kind of sexual activity by your partner or ex-partner? No 05/21/2019 Sex Assigned at Date Recorded Not on file Last Filed Vital Signs Vital Sign Reading Time Taken Comments Blood Pressure 110/70 09/07/2020 8:16 AM EDT Pulse 72 05/21/2019 1:46 PM EST Temperature - - Respiratory Rate 16 05/21/2019 1:46 PM EST Oxygen Saturation - - Inhaled Oxygen Concentration - - Weight 105.5 kg (232 lb 9.6 oz) 05/21/2019 1:46 PM EST Height 175.3 cm (5' 9 ) 05/21/2019 1:46 PM EST Body Mass Index 34.35 05/21/2019 1:46 PM EST Plan of Treatment Health Maintenance Due Date Last Done Comments Covid-19 Vaccine (#1) 1972 CHOLESTEROL SCREENING 1992 BASELINE HEALTH EXAM 40-64 2012 MAMMOGRAM 2012 COLON CANCER SCREENING 2022 SHINGLES VACCINE (1 of 2) 2022 CERVICAL CANCER SCREENING 09/08/20232020, 10/14/2018 (External Completion) DTAP/TDAP/TD (2 - Td or Tdap) 10/20/2023 10/19/2013 BMI CHECK/ADVISE 06/16/2024 09/07/2020, 09/07/2020 INFLUENZA (Season Ended) 2025 PNEUMOCOCCAL VACCINE FOR HIG H RISK PATIENTS (#1) 2037 Care Teams Radiation Physicist Relationship Specialty Start Date End Date Davina Marie PCP - General Family Practice 06/27/21
--- OUTSIDE RECORDS SUMMARY | 2024-09-27 09:49 | XMS_ITS | Encounter Summary ---
Author Organization [employer] Address [address] [facility] [address] [facility] [address] [place] [address] Care Team Providers Care Director Of Assisted Living Name Role Phone Davina Marie MD Primary Care Provider [phone] Encounter Details Date Type Department Care Team (Late st Contact Info) Description 01/21/2023 Orders Only [facility] CH[facility] MED & PEDS [address] [place] [address] Tamanna Villalpando LPN Social History Tobacco Use Types Packs/Day Years Used Date Smoking Tobacco: Never Smokeless Tobacco: Never Alcohol Use Standard Drinks/Week Comments Never 0 (1 standard drink = 0.6 oz pur e alcohol) Comments Unknown Sex and Gender Information Value Date Recorded Sex Assigned at Female 04/15/2022 10:14 AM EDT Legal Sex Female 10:14 AM EDT Gender Identity Female 04/15/2022 10:14 AM EDT Sexual Orientation Choose not to disclose 2021 10:14 AM EDT documented as of this encounter Plan of Treatment Not on file documented as of this encounter Visit Diagnoses Not on filedocumented in this encounter Care Teams Director Of Assisted Living Relationship Specialty Start Date End Date Davina Marie MD [address] [place] [id number] PCP - General Family Medicine 12/01/19 documented as of this encounter
--- OUTSIDE RECORDS SUMMARY | 2024-09-27 09:49 | XMS_ITS | Encounter Summary ---
Author Organization [employer] Address [address] [place] [address] [address] [place] [address] Care Team Providers Care Night Baker Name Role Phone Davina Marie MD Primary Care Provider [phone] Reason for Visit * Reason Comments Med Refill Encounter Details Date Type Department Care Team (Late st Contact Info) Description 07/03/2022 Refill [facility] CH[facility] MED & PEDS [address] [place] [address] Davina Marie MD [address] [place] [address] Anemia, unspecified type Social History Tobacco Use Types Packs/Day Years Used Date Smoking Tobacco: Never Assessed Comments Unknown Sex and Gender Information Value Date Recorded Sex Assigned at Female 04/15/2022 10:14 AM EDT Legal Sex Female 10:14 AM EDT Gender Identity Female 04/15/2022 10:14 AM EDT Sexual Orientation Choose not to disclose 2021 10:14 AM EDT documented as of this encounter Plan of Treatment Not on file documented as of this encounter Visit Diagnoses Diagnosis Anemia, unspecified type documented in this encounter Care Teams Night Baker Relationship Specialty Start Date End Date Davina Marie MD [address] [place] [id number] PCP - General Family Medicine 12/01/19 documented as of this encounter
--- OUTSIDE RECORDS SUMMARY | 2024-09-27 09:49 | XMS_ITS | Clinical Summary ---
Author Organization [facility] Address [address] [place] [address] Care Team Providers Care Snuff Container Inspector Name Role Phone Unavailable Primary Care Provider Unavailabl e Source Comments PLEASE NOTE, if this patient is a minor, it may be UNLAWFUL to discuss sensitive information that is contained in these records (such as FAMILY PLANNING, MENTAL HEALTH or SUBSTANCE ABUSE) with the minor patient's parent or other person without the patient's specific authorization.JUSTIN Active Problems Problem Noted Date Diagnosed Date Migraine 08/13/2018 Overview (08/12/2019): Overview Note: Migraine #[id number]# EXT_ID: [id number] Low back pain 10/29/2017 Overview (08/12/2019): Overview Note: Low back pain #[id number]# EXT_ID: [id number] Restless leg syndrome 06/12/2017 Overview (08/12/2019): Overview Note: Restless leg syndrome #[id number]# EXT_ID: [id number] Osteoarthritis of knees, bilateral 06/12/2017 Overview (08/12/2019): Overview Note: Osteoarthritis of knees, bilat #[id number]# EXT_ID: [id number] Knee arthropathy 06/12/2017 Overview (08/12/2019): Overview Note: Knee arthropathy #[id number]# EXT_ID: [id number] Hypertension 01/23/2017 Overview (08/12/2019): Overview Note: Hypertension #[id number]# EXT_ID: [id number] Immunizations Immunization Administration Dates Next Due INFLUENZA, SEASONAL, INJECTABLE, PRESERVATIVE FR EE 03/25/2018 Social History Tobacco Use Types Packs/Day Years Used Date Smoking Tobacco: Never Assessed Social Connections Answer Date Recorded Social Connections and Isolation 0 08/07/2019 Financial Resource Strain Answer Date R ecorded Financial Resource Strain 0 2019 Stress Answer Date Recorded Stress 0 08/07/2019 Physical Activity Answer Date Recorded Physical Activity 0 08/07/2019 Food Insecurity Answer Date Recorded Food 0 08/07/2019 Transportation Needs Answer Date Record ed Transportation 0 08/07/2019 Housing Stability Answer Date Recorded Housing 0 08/07/2019 Safety and Environment Answer Date Johan rded Safety 0 08/07/2019 Utilities Answer Date Recorded Utilities 0 08/07/2019 Employment Answer Date Recorded Employment 0 08/07/2019 Comments Unknown Sex and Gender Information Value Date Recorded Sex Assigned at Not on file Legal Sex Female 1:45 AM PST Gender Identity Not on file Sexual Orientation Not on file Last Filed Vital Signs Vital Sign Reading Time Taken Comments Blood Pressure 166/110 09/23/2018 6:12 PM EDT Pulse 57 09/23/2018 6:12 PM EDT Temperature 37.3 ??C ([id number] ??F) 09/23/2018 6:12 PM EDT Respiratory Rate 18 09/23/2018 6:12 PM EDT Oxygen Saturation 97% 08/18/2018 6:39 PM EST Inhaled Oxygen Concentration - - Weight 104.8 kg (231 lb) 09/23/2018 6:12 PM EDT Height 170.2 cm (5' 7 ) 09/23/2018 6:12 PM EDT Body Mass Index 36.18 09/23/2018 6:12 PM EDT Plan of Treatment Not on file
--- OUTSIDE RECORDS SUMMARY | 2024-09-27 09:49 | XMS_ITS | Encounter Summary ---
Author Organization [employer] Address [address] [facility] [address] [place] [address] Care Team Providers Care Solution Design Engineer Name Role Phone Davina Marie MD Primary Care Provider [phone] Encounter Details Date Type Department Care Team (Late st Contact Info) Description 07/30/2022 Orders Only [facility] MEDICINE [address] [place], [place] [phone] Oumou Carney LPN Social History Tobacco Use Types Packs/Day Years Used Date Smoking Tobacco: Never Assessed Comments Unknown Sex and Gender Information Value Date Recorded Sex Assigned at Female 04/15/2022 10:14 AM EDT Legal Sex Female 10:14 AM EDT Gender Identity Female 04/15/2022 10:14 AM EDT Sexual Orientation Choose not to disclose 2021 10:14 AM EDT COVID-19 Exposure Response Date Recorded In the last 10 days, have yo u been in contact with someone who was confirmed or suspected to have Coronavirus/COVID-19? No / Unsure 07/18/2022 9:57 AM EST documented as of this encounter Plan of Treatment Not on file documented as of this encounter Visit Diagnoses Not on filedocumented in this encounter Care Teams Solution Design Engineer Relationship Specialty Start Date End Date Davina Marie MD [address] [place] [address] PCP - General Family Medicine 12/01/19 documented as of this encounter
--- OUTSIDE RECORDS SUMMARY | 2024-09-27 09:49 | XMS_ITS | Clinical Summary ---
Author Organization [facility] [place] it Address [address] [place] [address] Care Team Providers Care Theology Professor Name Role Phone Davina Marie MD Primary Care Provider [phone] Surgical History Surgery Date Site/Laterality Comments OTHER SURGICAL HISTORY PROCEDURE: DE ANES HRNA REPAIR UPR ABD TABDL RPR DIPHRG HRNA SALPINGOOPHORECTOMY 10/2018 Left PROCEDURE: DE LAPAROSCOPY W/RMVL ADNEXAL STRUCTURES; COMMENT: ovarian torsion OTHER SURGICAL HISTORY 2016 PROCEDURE: DE DILATION & CURETTAGE DX&/THER NONOBSTETRIC Medical History Medical History Date Comments High blood pressure DX:High bloo d pressure Asthma DX:Asthma Muscle spasm DX:Muscle spasm; COMMENT: shoulders Arthritis DX:Arthritis; CO MMENT: in both knees Depression DX:Depression Family History Medical History Relation Name Comments Other: homicide Mother Breast cancer Neg Hx Colon cancer Neg Hx Ovarian cancer Neg Hx Pancreatic cancer Neg Hx Uterine cancer Neg Hx Relation Name Status Comments Brother 1 [...] at Not on file Legal Sex Female 5:38 AM EST Gender Identity Not on file Sexual Orientation Not on file Obstetrics History Plan of Treatment Health Maintenance Due Date Last Done Comments Breast Cancer Screening 1972 DTaP,Tdap,and Td Vaccines (1 - Tdap) 1991 Hepatitis B Vaccines (1 of 3 - 19+ 3-dose series) 1991 Pneumococcal Vaccine: 50+ Ye ars (1 of 1 - PCV) 2022 Zoster Vaccines (1 of 2) 2022 Colorectal Cancer Screening: Colonoscopy 05/26/2022 Depression Screening 05/26/2022 HIV Screening 05/26/2022 Hepatitis C Screening 05/26/2022 Social Influencers of Health Screening 05/26/2022 Cervical Cancer Screening: P ap Smear 09/08/2023 09/07/2020 COVID-19 Vaccine (1 - 2023-2 5 season) 2024 Influenza Vaccine (Season Ended) 2025 HIB Vaccines Aged Out No longer eligi ble based on patient's age to complete this topic HPV Vaccines Aged Out No longer eligi ble based on patient's age to complete this topic Hepatitis A Vaccines Aged Out No long er eligible based on patient's age to complete this topic IPV Vaccines Aged Out No longer eligi ble based on patient's age to complete this topic MMR Vaccines Aged Out No longer eligi ble based on patient's age to complete this topic Meningococcal ACWY Vaccine Aged Out N o longer eligible based on patient's age to complete this topic Meningococcal B Vaccine Aged Out No l onger eligible based on patient's age to complete this topic Pneumococcal Vaccine: Pediat rics (0 to 5 Years) and At-Risk Patients (6 to 64 Years) Aged Out No longer eligi ble based on patient's age to complete this topic RSV Immunization Patients Un krysta 20 months Aged Out No longer eligible b ased on patient's age to complete this topic Varicella Vaccines Aged Out No longer eligible based on patient's age to complete this topic Procedures Procedure Name Priority Date/Time Associated Diagnosis Comments PAP SMEAR Routine 09/07/2020 from Last 3 Months or Most Recently Relevant to Health Maintenance Results * Pap smear (09/07/2020) 09/07/2020 Narrative HISTORICAL TESTING LAB RESULTING AGENCY - 09/11/2020 4:30 PM EDT [id number] THINPREP PAP, IMAGED: NEGATIVE FOR SQUAMOUS INTRAEPITHELIAL LESION AND MALIGNANCY . ABUNDANT RED BLOOD CELLS ARE PRESENT. AREN MORAN(ASCP) (CASE ELECTRONICALLY SIGNED 09 11 2020) RESULT OF APTIMA HIGH RISK HPV ASSAY: HIGH RISK HPV: ??NEGATIVE (SEROTYPES 16,18,31,33,35,39,45,51,52,56,58,59,66,68) COMPLETED ON 2020-09-11 ADEQUACY: SATISFACTORY ENDOCERVICAL/TRANSFORMATION ZONE COMPONENT PRESENT. SOURCE: THINPREP PAP HPV ANY DX: ??REFLEX 16 AND 18, CERVICAL, IMAGED CLINICAL INFORMATION: HPV ANY DIAGNOSIS. PAP HX NONE, LMP 08/28/20 [Z12.4, Z12.31] us Sabrina [facility] CYTOLOGY ORDERABLES Final Result HISTORICAL TESTING LAB RESULTING AGENCY from Last 3 Months or Most Recently Relevant to Health Maintenance Advance Directives Documents on File Type Date Recorded Patient Tray Server Expl anation Health Care Decision (hx) 12/14/2020 AD SCHUMACHER DIRECTIVE Health Care Decision (hx) 12/14/2020 AD SCHUMACHER DIRECTIVE Health Care Decision (hx) 12/14/2020 AD SCHUMACHER DIRECTIVE Health Care Decision (hx) 12/14/2020 AD SCHUMACHER DIRECTIVE Health Care Decision (hx) 12/14/2020 AD SCHUMACHER DIRECTIVE Health Care Decision (hx) 12/14/2020 AD SCHUMACHER DIRECTIVE Health Care Decision (hx) 12/14/2020 AD SCHUMACHER DIRECTIVE Health Care Decision (hx) 12/14/2020 AD SCHUMACHER DIRECTIVE Care Teams Theology Professor Relationship Specialty Start Date End Date Davina Marie MD [address] [place] [id number] PCP - General 06/27/21
--- OUTSIDE RECORDS SUMMARY | 2024-09-27 09:49 | XMS_ITS | Encounter Summary ---
Author Organization [employer] Address [address] [facility] [address] [place] [address] Care Team Providers Care Signal Maintainer Name Role Phone Davina Marie MD Primary Care Provider [phone] Reason for Visit * Reason Comments Med Refill Encounter Details Date Type Department Care Team ([facility] Contact Info) Description 10/23/2023 Refill [facility] CHC MED & PEDS [address] [place], [place] [phone] Davina Marie MD [address] [place] [address] Social History Tobacco Use Types Packs/Day Years Used Date Smoking Tobacco: Never Passive Smoke Exposure: Never Smokeless Tobacco: Never Alcohol Use Standard Drinks/Week Comments Never 0 (1 standard drink = 0.6 oz pur e alcohol) Alcohol Answer Date Recorded Frequency of Alcohol Consumption Not on file 09/24/2023 Average Number of Drinks Not on file 024 Frequency of Binge Drinking Not on file 09/14 Score 0 09/24/2023 Depression Answer Date Recorded Patient Health Questionnaire-9 Score 11 09/24/2023 Patient Health Questionnaire-9 Score 11 09/24/2023 Last PHQ-9: Questionnaire Data Not on file 0 09/24/2023 Housing Stability Answer Date Recorded What is your housing situation today? I have valentino romero 03/31/[address] you li ve. Do you have problems with any of the following? None of the above 03/31/2023 Food Insecurity Answer Date Recorded Within the past 12 months, y ou worried that your food would run out before you got money to buy more: Never True 03/31/2023 Within the past 12 months,th e food you bought just didn't last and you didn't have enough money to get more: Never True Transportation Answer Date Recorded In the past 12 months, has l ack of transportation kept you from medical appts, meetings, work or from getting things needed for daily living? No 03/31/2023 Utilities Answer Date Recorded In the past 12 months, has t he electric, gas, oil or water company threatened to shut off services in your home? No 03/31/2023 Depression Answer Date Recorded Patient Health Questionnaire-2 Score 2 09/24/2023 Comments Unknown Sex and Gender Information Value [...] Diagnoses Not on filedocumented in this encounter Additional Health Concerns Assessment Noted Time PHQ-9 Depression Total Score: 11 024 9:53 AM EDT documented as of this encounter Care Teams Signal Maintainer Relationship Specialty Start Date End Date Davina Marie MD [address] [place] [id number] PCP - General Family Medicine 12/01/19 documented as of this encounter
--- OUTSIDE RECORDS SUMMARY | 2024-09-27 09:49 | XMS_ITS | Clinical Summary ---
Author Organization [employer] Address [address] [place] [address] [address] [place] [address] Care Team Providers Care Filling Machine Operator Name Role Phone Davina Marie MD Primary Care Provider [phone] Allergies Active Allergy Reactions Criticality Noted Date Comments Aspirin Low 05/21/2019 Other reaction(s): mild vaginal bleeding Other Reaction(s): mild vaginal bleeding Side Effects Bacitracin Rash Low 05/03/2024 Ibuprofen 10/28/2019 Other Reaction(s): Unknown Lisinopril Cough 07/25/2015 Other Reaction(s): Unknown Medications * This document contains information received from the source organization and may not represent a complete record from that organization. atorvastatin (Lipitor) 40 MG tabletIndicatio ns:Gastroesopha geal reflux disease without esophagitis TAKE ONE TABLET AT BEDTIME 90 tablet 3 11/26/19 23 Active Multiple Vitamins-Iron (Tab-A-Bing/Iro n) tablet TAKE ONE TABLET BY MOUTH AT BEDTIME 10/29/19 23 Active butalbital-acet aminophen-caffe ine 50-325-40 MG tabletIndicatio ns:Intractable headache, unspecified chronicity pattern, unspecified headache type Take 1 tablet by mouth every 6 (six) hours if needed for headaches. 10 tablet 03/07/20 23 Active cyclobenzaprine (Flexeril) 10 MG tablet TAKE ONE TABLET THREE TIMES DAILY 30 tablet 09/05/19 24 Active ergocalciferol (Vitamin D2) 1.25 MG (88313 UT) capsule TAKE ONE CAPSULE ONCE WEEKLY FRIDAY MORNING 4 capsule 11 10/26/19 24 Active metoprolol tartrate (Lopressor) 50 MG tabletIndicatio ns:Gastroesopha geal reflux disease without esophagitis TAKE ONE TABLET TWICE DAILY IN THE MORNING AND AT BEDTIME WITH FOOD 180 tablet 3 11/18/19 24 Active DULoxetine (Cymbalta) [address] capsule TAKE ONE CAPSULE EVERY NIGHT AT BEDTIME 30 capsule 11 11/18/19 24 Active amLODIPine (Norvasc) 5 MG tablet TAKE ONE TABLET EVERY MORNING 90 tablet 3 01/15/20 24 Active Multiple Vitamins-Iron (Tab-A-Bing/Iro n) tablet TAKE ONE TABLET EVERY NIGHT AT BEDTIME 90 tablet 3 01/15/20 24 Active montelukast (Singulair) 10 MG tablet TAKE ONE TABLET EVERY NIGHT AT BEDTIME 90 tablet 3 01/15/20 24 Active cetirizine (ZyrTEC) 10 MG tabletIndicatio ns:Gastroesopha geal reflux disease without esophagitis TAKE ONE TABLET EVERY NIGHT AT BEDTIME 90 tablet 1 05/07/20 24 Active omeprazole (PriLOSEC) [address] capsuleIndicati ons:Benign hypertension TAKE ONE CAPSULE IN THE MORNING AND EVENING BEFORE MEALS 180 capsule 1 05/07/20 24 Active losartan (Cozaar) 100 MG tablet TAKE ONE TABLET EVERY MORNING 90 tablet 1 05/07/20 24 Active cloNIDine (Catapres) 0.1 MG tabletIndicatio ns:Anemia, unspecified type TAKE ONE TABLET TWICE DAILY IN THE MORNING AND AT BEDTIME 180 tablet 3 06/17/19 25 Active Ferrous Sulfate (iron) 325 (65 Fe) MG tabletIndicatio ns:Anemia, unspecified type TAKE ONE TABLET EVERY MORNING WITH WATER 90 tablet 3 06/17/19 25 Active ascorbid acid ER (Vitamin C) 500 MG ER capsuleIndicati ons:Anemia, unspecified type TAKE ONE CAPSULE EVERY MORNING WITH WATER AND iron 90 capsule 3 06/17/19 25 Active cyanocobalamin (Vitamin B-12) 500 MCG tabletIndicatio ns:Atrial fibrillation, unspecified type (CMS/HCC) TAKE ONE TABLET EVERY MORNING 90 tablet 1 07/22/19 25 Active albuterol (2.5 MG/3ML) 0.083% nebulizer solution Take 3 mL by nebulization 1 (one) time for 1 dose. 75 mL 08/10/19 25 Active albuterol 108 (90 Base) MCG/ACT inhaler Inhale 2 puffs every 4 (four) hours if needed for wheezing. 18 g 2 08/10/19 25 2025 Active fluticasone-sha meterol (Advair) 230-21 MCG/ACT inhaler Inhale 2 puffs in the morning and at bedtime. Rinse mouth with water after use to reduce aftertaste and incidence of candidiasis. Do not swallow. 12 g 08/10/19 25 2025 Active Tirzepatide-Claus ght Management (Zepbound) 2.5 MG/0.5ML solution auto-injector Inject 0.5 mL (2.5 mg) under the skin 1 (one) time per week. 2 mL 08/10/19 25 Active furosemide (Lasix) 20 MG tablet TAKE ONE TABLET IN THE MORNING AND EVENING 60 tablet 08/13/19 25 Active rosuvastatin (Crestor) 20 MG tabletIndicatio ns:Constipation , unspecified constipation type TAKE ONE TABLET EVERY MORNING 30 tablet 11 09/15/19 25 Active docusate sodium (Colace) 100 MG capsuleIndicati ons:Anemia, unspecified type TAKE ONE CAPSULE TWICE DAILY IN THE MORNING AND AT BEDTIME 180 capsule 3 09/15/19 25 Active topiramate (Topamax) 100 MG tabletIndicatio ns:Acute intractable headache, unspecified headache type TAKE ONE TABLET EVERY NIGHT AT BEDTIME 90 tablet 1 09/15/19 25 Active Eliquis 5 MG tabletIndicatio ns:Unspecified atrial fibrillation (CMS/HCC) TAKE ONE TABLET TWICE DAILY IN THE MORNING AND AT BEDTIME 60 tablet 09/15/19 25 Active rosuvastatin (Crestor) 20 MG tablet Take 1 tablet (20 mg) by mouth in the morning. 30 tablet 09/26/19 24 2024 Discontinued docusate sodium (Colace) 100 MG capsuleIndicati ons:Anemia, unspecified type TAKE ONE CAPSULE TWICE DAILY IN THE MORNING AND AT BEDTIME 180 capsule 3 09/26/19 24 2024 Discontinued topiramate (Topamax) 100 MG tablet TAKE ONE TABLET EVERY NIGHT AT BEDTIME 90 tablet 1 05/07/20 24 2024 Discontinued Eliquis 5 MG tabletIndicatio ns:Unspecified atrial fibrillation (CMS/HCC) TAKE ONE TABLET TWICE DAILY IN THE MORNING AND AT BEDTIME 60 tablet 08/18/19 25 2024 Discontinued oseltamivir (Tamiflu) 75 MG capsuleIndicati ons:Influenza A Infection Take 1 capsule (75 mg) by mouth 2 times daily for 5 days. 10 capsule 08/27/19 25 2024 Active Problems Problem Noted Date Diagnosed Date Bronchitis 07/06/2023 Assessment & Plan (07/06/2023 8:50 AM EST): Here today COVID 19 ,flu and strep test are neg Pt w ongoing respiratory symptoms w ongoing cough -worsen productive and symptoms and from exam of asthma exacerbation -prednisone x 5 days -amoxicillin BID x 7 day -Zofran prn -supportive tx -NBZ here x1 -CXR-will call pt w result -alarm signs symptoms explained to pt to return if no improvement in next 2 to 3 days Vision loss, bilateral 03/07/2023 Trigger finger, left ring finger 03/07/2023 Spondylosis of lumbar spine 03/07/2023 Environmental allergies 03/07/2023 Osteoarthritis, hand 03/07/2023 SANDEE (obstructive sleep apnea) 03/07/2023 Morbid obesity with BMI of 45.0-49.9, adult 02/15 Mononeuropathy, unspecified 03/07/2023 Headache 03/07/2023 Assessment & Plan (03/07/2023 9:47 AM EDT): Patient will be given Exrkqsmoss-Wehwrfqtjkkmp-Awageywd to treated headaches. GERD with esophagitis 03/07/2023 Dysphagia, pharyngoesophageal phase 03/07/2023 Cluneal neuropathy 03/07/2023 Chronic pain syndrome 03/07/2023 Carotid stenosis, bilateral 03/07/2023 Bilateral knee pain 03/07/2023 Anemia 03/07/2023 Abdominal bloating 03/07/2023 Moderate persistent asthma with exacerbation Assessment & Plan (03/07/2023 9:54 AM EDT): Uncontrolled asthma 2/2 no compliance with exacerbation. Will send prednisone, and refill controller and KIRA. Given patient has issus with coordinating her breaths when she has an excerbation with kira, will send neb solution and machine. Seizures 11/21/2022 Atrial fibrillation 07/31/2022 Benign hypertension 07/31/2022 Assessment & Plan (07/06/2023 8:52 AM EST): Elevated BP today -Not took BP med today -advised to resume her meds when gets home and to be consistent -t f w PCP in 4 weeks Gastroesophageal reflux disease without esophagi tis 07/31/2022 History of left oophorectomy 07/31/2022 Mixed anxiety depressive disorder 07/31/2022 Uncomplicated asthma 07/31/2022 Osteoarthritis of both knees 10/22/2019 Ovarian torsion 09/12/2018 Overview (07/31/2022): October 2018: surgery for ovarian torsion at [facility] in [facility] Migraine 08/13/2018 Overview (07/31/2022): Overview Note: Migraine #[id number]# EXT_ID: [id number] Low back pain 10/29/2017 Overview (03/07/2023): Overview Note: Low back pain #[id number]# EXT_ID: [id number] Chest pain 07/08/2017 Restless leg syndrome 06/12/2017 Overview (07/31/2022): Overview Note: Restless leg syndrome #[id number]# EXT_ID: [id number] Osteoarthrosis involving lower leg 06/12/2017 Overview (03/07/2023): Overview Note: Osteoarthritis of knees, bilat #[id number]# EXT_ID: [id number] Encounters Date Type Department Care Team Description 09/10/2024 Refill [facility] [address] [place] [address] Davina Marie MD Unspecified atrial fibrillation (CMS/HCC) 09/10/2024 Refill [facility] [address] [facility] [place] [address] Davina Marie MD Anemia, unspecified type; Constipation, unspecified constipation type; Acute intractable headache, unspecified headache type 08/27/2024 Population Health Risk Score [facility] ([facility]) Department [address] [place] [phone] Provider, Population Health Generic 08/26/2024 9:40 AM EDT Office Visit [facility] [address] [place] [address] Don Mohr MD Viral URI with cough 08/26/2024 Travel 08/13/2024 Refill [facility] [address] [place] [address] Chandu Szymanski MD Unspecified atrial fibrillation (CMS/HCC) 08/13/2024 Refill [facility] [address] [place] [address] Davina Marie MD 08/10/2024 10:00 AM EST Office Visit [facility] [address] [place] [address] Davina Marie MD Benign hypertension (Primary Dx); Seizures (CMS/HCC); Longstanding persistent atrial fibrillation (CMS/HCC); Osteoarthritis of both knees, unspecified osteoarthritis type; Chronic bilateral low back pain without sciatica; Class 3 severe obesity without serious comorbidity with body mass index (BMI) of 45.0 to 49.9 in adult, unspecified obesity type (CMS/HCC) 08/10/2024 Telephone [facility] [address] [facility] [place] [address] Davina Marie MD Prior Authorization 08/10/2024 Travel 08/09/2024 Telephone [facility] [address] [place] [address] Davina Marie MD Chart Prep 07/19/2024 Refill [facility] [address] [place] [address] Davina Marie MD Atrial fibrillation, unspecified type (CMS/HCC) 07/16/2024 Refill [facility] [address] [facility] [place] [address] Davina Marie MD Unspecified atrial fibrillation ([facility]/HCC) 07/14/2024 Travel 07/02/2024 Orders Only [facility] External Provider, from Last 3 Months Immunizations Name Administration Dates Next Due Influenza Injectable Quadriv alant Preservative Free IIV4 MDCK 04/25/2021 Influenza injectable quadriv alent IIV4 with preservative 05/19/2019,05/17/2016,03/14/2015 Influenza injectable quadriv alent preservative free 02/26/2023,07/18/2022 Influenza, IIV3, injectable 03/02/2014 Influenza, Split (incl. snow fied surface antigen) 07/10/2012 Influenza, seasonal, injecta ble, preservative free 03/25/2018 Pfizer Covid-19 Vaccine 12+ 03/17/2023 Pfizer Covid-19 Vaccine 12+ Bivalent 07/18/2022 Pneumococcal Polysaccharide PPSV23 12/30/2019 Tdap 10/19/2013 Zoster, Recombinant 03/25/2023,01/09/2023 Social History Tobacco Use Types Packs/Day Years Used Date Smoking Tobacco: Never Passive Smoke Exposure: Never Smokeless Tobacco: Never Tobacco Cessation:Counseling Given: Not Answered Alcohol Use Standard Drinks/Week Comments Never 0 [...] not to disclose 2021 10:14 AM EDT Last Filed Vital Signs Vital Sign Reading Time Taken Comments Blood Pressure 148/88 08/26/2024 9:12 AM EDT Pulse 70 08/26/2024 9:12 AM EDT Temperature 36.8 ??C (98.2 ??F) 08/26/2024 9:12 AM ED T Respiratory Rate 18 08/26/2024 9:12 AM EDT Oxygen Saturation 99% 08/26/2024 9:12 AM EDT Inhaled Oxygen Concentration - - Weight 147 kg (325 lb) 08/26/2024 9:12 AM EDT Height 175.3 cm (5' 9 ) 08/10/2024 10:17 AM EST Body Mass Index 47.99 08/10/2024 10:17 AM EST Plan of Treatment Health Maintenance Due Date Last Done Comments CT Colonography 1972 Colonoscopy 1972 Colorectal Cancer Screening 1972 FIT DNA/Cologuard 1972 FIT 1972 FOBT 1972 Sigmoidoscopy 1972 Alcohol/Substance Use Screening 1984 Family Planning (PISQ) 1987 Pap Smear 1993 Cervical Cancer Screening 2002 HPV/Cotest 2002 Mammogram 2012 Pneumococcal Vaccine: 50+ Years (2 of 2 - PCV) 12/29/2020 12/30/2019 Depression Monitoring 03/25/2024 09/24/2023, 024 Depression Screening 09/23/2024 09/24/2023, 09/24/19 24 SDOH Screening 09/23/2024 09/24/2023 Tobacco Screening 09/23/2024 09/24/2023 Lipid Panel 09/23/2028 09/24/2023, 03/16, 08/20/2021 DTaP/Tdap/Td Vaccines (3 - Td or Tdap) 12/12/2033 12/13/2023, 10/19/2013 RSV Patients and Patients Aged 60 years or older (1 - 1-dose 75+ series) 2047 HIV Screening Completed 01/01/2021 Zoster Vaccines Completed 03/25/2023, 01/09/2023 Hepatitis C Screening Completed 04/02/2023 COVID-19 Vaccine Completed 03/23/2024, 07/2022, 07/18/2022, Additional history exists Influenza Vaccine Completed 03/23/2024, , 07/18/2022, Additional history exists Hepatitis B Vaccines Completed 03/24/2024, 12/13/19 24 HIB Vaccines Aged Out No longer eligi [...] patient's age to complete this topic Meningococcal Vaccine Aged Out No nneka selwyn eligible based on patient's age to complete this topic RSV under 20 months Aged Out No longe r eligible based on patient's age to complete this topic Rotavirus Vaccines Aged Out No longer eligible based on patient's age to complete this topic Procedures Procedure Name Priority Date/Time Associated Diagnosis Comments POCT INFLUENZA A (ID NOW RAPID MOLECULAR) Routine 08/26/2024 9:15 AM EDT Viral URI with cough POCT RAPID STREP A Routine 08/26/2024 9: 14 AM EDT Viral URI with cough POCT RAPID COVID ANTIGEN Routine 08/26/2024 9:14 AM EDT Viral URI with cough POCT INFLUENZA B (ID NOW RAPID MOLECULAR) Routine 08/26/2024 9:14 AM EDT Viral URI with cough CT HEAD WO CONTRAST Routine 07/02/2024 7 :38 AM EST LIPID PANEL, STANDARD Routine 09/24/2023 10:04 AM EDT Seizures (CMS/HCC) Longstanding persistent atrial fibrillation (CMS/HCC) HEPATITIS C AB W/REFL TO HCV RNA, QN, PCR Routine 04/02/2023 8:28 AM EDT Seizures (CMS/HCC) ZZZ HISTORICAL HIV AB/AG Routine 01/01/2021 10:40 AM EDT from Last 3 Months or Most Recently Relevant to Health Maintenance Results * Influenza A (ID NOW Rapid Molecular) (08/26/2024 9:15 AM EDT) Pathologist [facility] Influenza A Negative Negative, Indeterminate [facility] Swab 08/26/2024 9:15 AM EDT us Don Mohr MD POINT OF CARE TEST ENTER/EDIT OR DERABLES Final Result [facility] [address] [place] [phone] * Influenza B (ID NOW Rapid Molecular) (08/26/2024 9:14 AM EDT) Influenza B Negative Negative, Indeterminate [facility] Swab 08/26/2024 9:14 AM EDT us Don Mohr MD POINT OF CARE TEST ENTER/EDIT OR DERABLES Final Result Performing Organization Address [facility]/State/ZIP Co de Phone Number [facility] [address] [place] [phone] [phone] * POCT Rapid COVID Ag (08/26/2024 9:14 AM EDT) Rapid COVID Ag Negative Swab 08/26/2024 9:14 AM EDT Don Mohr MD POINT OF CARE TEST ENTER/EDIT OR DERABLES Final Result * POCT rapid strep A manually resulted (08/26/2024 9:14 AM EDT) [facility] Rapid Strep A Screen Negative Negative, None Detected Swab 08/26/2024 9:14 AM EDT Don Mohr MD POINT OF CARE TEST ENTER/EDIT OR DERABLES Final Result * CT Head w/o Contrast (07/02/2024 7:38 AM EST) Anatomical Region Laterality Modality Head, Neck Computed Tomogra phy 07/02/2024 7:38 AM EST Narrative 07/02/2024 8:07 AM EST ?[address] ?[place] [address] ? CT Scan Report ? Signed ? Patient: Matt,Nolen ?MR#: [id number] ?? [id number] ? : 1970 ?Acct:[id number] ? Age/Sex: 54 / F ?ADM Date: /17/25 ? Loc: HO.CT ? Attending Dr: Brynn Rico SEAMAN ? Ordering Physician: Brynn Rico SEAMAN ?? Date of Service: 07/02/24 ?? Procedure(s): CT head/brain wo IV con ?? Accession Number(s): [id number] ? cc: Brynn Rico; Davina Marie MD ? Report Number: ?? [id number]: Total DLP = 1036.00 mGy-cm ?? EXAMINATION: CT HEAD WITHOUT IV CONTRAST ? HISTORY: R51.9 - Headache, unspecified. ? TECHNIQUE: ? Unenhanced helical CT of the head was performed per standard ?? departmental protocol. Coronal and sagittal reformats of the head were ?? also evaluated. One or more of the following techniques was used for ?? dose reduction: Automated exposure control, adjustment of the mA and/or ?? kV according to patient size, use of iterative reconstruction technique. ? DLP: 1036 mGy-cm ? COMPARISON: There is an is made with the prior examination dated ?? 10/05/2022. ? FINDINGS: ? BRAIN: ??The brain parenchyma is unremarkable. There is normal ?? linder/white differentiation. The ventricular system is normal in size ?? and configuration. ??There is no mass effect or midline shift. ??No ?? intra- or extra-axial fluid collections are identified. ? SINUSES: The visualized paranasal sinuses are clear. ??The mastoid air ?? cells and middle ear cavities are well pneumatized. ? ORBITS: The visualized orbits are unremarkable. ? BONES/SOFT TISSUES: The extracranial soft tissues are unremarkable. The ?? calvarium is intact. No suspicious lytic or sclerotic lesions. ? CT/CT head/brain wo IV con ?? IMPRESSION: ?? No acute intracranial abnormality. ? Electronically signed by: ??Apolinar Myers MD ??07/02/2024 08:04 AM EST ? Dictated By: ?Apolinar Myers MD ? Signed By: ?<Electronically signed by Apolinar Myers MD in OV> ?07/02/24 0804 ? DD/ 0738 ? TD/TT: 07/02/24 0752 ? Contingents Supervisor: ? Procedure Note Jannette, Image - 07/02/2024 [address] [id number] [place] [address] CT Scan Report Signed Patient: Tamanna Gutierrez#: [id number] : 1970Acct:[id number] Age/Sex: 54 / FADM Date: 07/02/24 Loc: HO.CT Attending Dr: Brynn DOUGLASS Ordering Physician: Brynn Rico Date of Service: 07/02/24 Procedure(s): CT head/brain wo IV con Accession Number(s): [id number] cc: Brynn Rico; Davina Marie MD Report Number: [id number]: Total DLP = 1036.00 mGy-cm EXAMINATION: CT HEAD WITHOUT IV CONTRAST HISTORY: R51.9 - Headache, unspecified. TECHNIQUE: Unenhanced helical CT of the head was performed per standard departmental protocol. Coronal and sagittal reformats of the head were also evaluated. One or more of the following techniques was used for dose reduction: Automated exposure control, adjustment of the mA and/or kV according to patient size, use of iterative reconstruction technique. DLP: 1036 mGy-cm COMPARISON: There is an is made with the prior examination dated 10/05/2022. FINDINGS: BRAIN: The brain parenchyma is unremarkable. There is normal linder/white differentiation. The ventricular system is normal in size and configuration. There is no mass effect or midline shift. No intra- or extra-axial fluid collections are identified. SINUSES: The visualized paranasal sinuses are clear. The mastoid air cells and middle ear cavities are well pneumatized. ORBITS: The visualized orbits are unremarkable. BONES/SOFT TISSUES: The extracranial soft tissues are unremarkable. The calvarium is intact. No suspicious lytic or sclerotic lesions. CT/CT head/brain wo IV con IMPRESSION: No acute intracranial abnormality. Electronically signed by: Apolinar Myers MD 07/02/2024 08:04 AM EST Dictated By: Apolinar Myers MD Signed By: <Electronically signed by Apolinar Myers MD in OV> 07/02/24 0804 DD/ 0738 TD/TT: 07/02/24 0752 Contingents Supervisor: [facility] External Provider IMG CT PROCEDURES Edited Result - Final * (ABNORMAL) Lipid Panel, Standard (09/24/2023 10:04 AM EDT) Triglycerides 183(H) <150 mg/dL [facility] Comment:Desirable Triglyceri de: less than 150 mg/dLBorderline High Triglyceride 150-199 mg/dLHigh Triglyceride: 200-499 mg/dLVery High Triglyceride: greater than or equal to 5OO mg/dL Cholesterol 139 <200 mg/dL [facility] Comment:Desirable Cholestero l: less than 200 mg/dLBorderline High Cholesterol: 200-239 mg/dLHigh Cholesterol: greater than 239 mg/dL LDL Cholesterol Calculated 60 <100 mg/dL [facility] Comment:Desirable LDL: less than 100 mg/dLNear Optimal/Above Optimal LDL: 110- 129 mg/dLBorderline High LDL: 130-159 mg/dLHigh LDL: 160-189 mg/dLVery High LDL: greater than or equal to 190 mg/dL HDL Cholesterol 43 >40 mg/dL [facility] Comment:Desirable HDL: great er than 40 mg/dL Note: This HDL assay may give artificially low results in patients with liver disease. Blood Venous blood specimen / Unknown 09/24/2023 10:04 AM EDT 09/24/2023 2:32 PM EDT Davina Marie MD LAB BLOOD ORDERABLES Final Resul t [facility] [address] [place] [phone] [phone] * Hepatitis C Antibody with Reflex to HCV, RNA, Quantitative, Real-Time PCR (04/02/2023 8:28 AM EDT) Hepatitis C Antibody Nonreactive Nonreactive [facility] Comment:Antibodies to HCV no t detected; does not exclude early acuteHCV infection. Blood Venous blood specimen / Unknown 04/02/2023 8:28 AM EDT 04/02/2023 8:36 AM EDT us Davina Marie MD LAB BLOOD ORDERABLES Final Resul t [facility] [address] [place] [address] [phone] * HIV AB/AG (01/01/2021 10:40 AM EDT) [facility] HIV AB/AG Nonreactive Nonreactive [facility] Comment: HIV-1 p24 Ag and/or HIV-1/HIV-2 Ab not detected. ?? A test result that is nonreactive does not exclude the possibility of exposure to or infection with HIV-1 and/or HIV-2. Nonreactive results in this assay for individuals with prior exposure to HIV-1 and/or HIV-2 may be due to antigen and antibody levels that are below the limit of detection of this assay. ?? The [employer] HIV Ag/Ab Combo assay result and supplemental assay results should be interpreted in conjunction with the patient's clinical presentation, history and other laboratory results. ??If the results are inconsistent with clinical evidence, additional testing is suggested to confirm the result. 01/01/2021 10:4 0 AM EDT us Ej Allred MD HISTORICAL/NON ORDERAB LE LABS Final Result [facility] [address] from Last 3 Months or Most Recently Relevant to Health Maintenance Insurance [facility] C3 Care Teams Filling Machine Operator Relationship Specialty Start Date End Date Davina Marei MD [address] [place] [phone] PCP - General Family Medicine 12/01/19
--- OUTSIDE RECORDS SUMMARY | 2024-09-27 09:49 | XMS_ITS | Encounter Summary ---
Author Organization [employer] Address [address] [facility] [address] [place] [address] Care Team Providers Care Print Shop Assistant Name Role Phone Davina Marie MD Primary Care Provider [phone] Encounter Details Date Type Department Care Team ([facility] st Contact Info) Description 11/25/2022 Orders Only [facility] [address] [place], [place] [phone] Davina Marie MD [address] [place] [address] Social History Tobacco Use Types Packs/Day Years [...] suspected to have Coronavirus/COVID-19? No / Unsure 11/21/2022 10:33 AM EDT documented as of this encounter Plan of Treatment Not on file documented as of this encounter Visit Diagnoses Not on filedocumented in this encounter Care Teams Print Shop Assistant Relationship Specialty Start Date End Date Davina Marie MD [address] [place] [phone] PCP - General Family Medicine 12/01/19 documented as of this encounter
--- OUTSIDE RECORDS SUMMARY | 2024-09-27 09:49 | XMS_ITS | Encounter Summary ---
Author Organization [employer] Address [address] [facility] [address] [place] [address] Care Team Providers Care Aircraft Engine Mechanic Overhaul Name Role Phone Davina Marie MD Primary Care Provider [phone] Encounter Details Date Type Department Care Team (Late st Contact Info) Description 11/19/2022 Orders Only [facility] MED & PEDS [address] [place] [address] Tamanna Villalpando LPN Social History Tobacco Use [...] on filedocumented in this encounter Care Teams Aircraft Engine Mechanic Overhaul Relationship Specialty Start Date End Date Davina Marie MD [address] [place] [id number] PCP - General Family Medicine 12/01/19 documented as of this encounter
--- OUTSIDE RECORDS SUMMARY | 2024-09-27 09:49 | XMS_ITS | Encounter Summary ---
Author Organization [employer] Address [address] [facility] [address] [place] [address] Care Team Providers Care Environmental Remediation Consultant Name Role Phone Davina Marie MD Primary Care Provider [phone] Encounter Details Date Type Department Care Team ([facility] st Contact Info) Description 05/23/2022 Telephone [facility] CHC MED & PEDS [address] [place], [place] [phone] Davina Marie MD [address] [place] [address] Social History Tobacco Use Types Packs/Day Years [...] on filedocumented in this encounter Care Teams Environmental Remediation Consultant Relationship Specialty Start Date End Date Davina Marie MD [address] [place] [id number] PCP - General Family Medicine 12/01/19 documented as of this encounter
--- OUTSIDE RECORDS SUMMARY | 2024-09-27 09:49 | XMS_ITS | Encounter Summary ---
Author Organization [employer] Address [address] [facility] [address] [place] [address] Care Team Providers Care Part Maker Name Role Phone Davina Marie MD Primary Care Provider [phone] Encounter Details Date Type Department Care Team (Late st Contact Info) Description 07/31/2022 Orders Only [facility] MEDICINE [address] [place] [address] Davina Marie MD [address] [place], [place] [id number] Social History Tobacco Use Types Packs/Day Years [...] on filedocumented in this encounter Care Teams Part Maker Relationship Specialty Start Date End Date Davina Marie MD [address] [place] [address] PCP - General Family Medicine 12/01/19 documented as of this encounter
[2024-09-27] MEDS: iohexoL 350 MG/ML 100 ML INFUS..BTL IV (09:58)
[2024-09-27] MEDS: HYDROmorphone HCl 1 MG/ML SYRINGE IVPUSH (10:21)
[2024-09-27 10:36] LABS: Appearance Urine Clear; Color Urine Dark Yellow; Glucose Urine UA Negative (Negative); Leukocyte Esterase Urine Negative (Negative); Nitrite Urine Negative (Negative); Specific Gravity - Urine >= 1.030 (1.005-1.025); Urine Blood Negative (Negative); Urine Ketones Negative (Negative); Urine Protein Trace mg/dL (Neg-Trace)
[2024-09-27] MEDS: diazePAM 10 MG/2 ML CARTRIDGE 5 MG IVPUSH (11:29)
--- NOTE | 2024-09-27 12:52 | PC.NURSE ---
Admitting for intractable pain with persistent nausea/vomiting, despite being administered medications. JUDY Eaton evaluated the patient. Pending admission orders.
--- NOTE | 2024-09-27 13:34 | PM.IMHP ---
History of Present Illness Date of Service: 09/27/24 Attending physician on admission: Chad Vizcaino Chief Complaint: abd pain, n/v 54-year-old female with history of hypertension, hyperlipidemia, gout, SANDEE on CPAP, paroxysmal atrial fibrillation anticoagulated with Eliquis, asthma, history of CVA, GERD, and chronic pain syndrome with osteoarthritis of multiple joints presented to the ED earlier today for evaluation of severe 10/10 diffuse abdominal pain greatest in the left lower quadrant. No radiation. She also states that she has had nausea and vomiting ongoing for 3 days. There have been no fevers, chills, hematemesis, diarrhea, constipation, melena, hematochezia. Denies any known sick contacts. No bad foods. In the ED, vital signs have been stable. Leukocytosis 14.5. No anemia. Renal function electrolyte levels normal. AST 39, ALT 39, alkaline phosphatase 150. Urinalysis undetectable. Negative for COVID, flu, RSV. Head CT negative for intracranial abnormality but does show residual contrast from prior CT limiting sensitivity. CT abdomen/pelvis shows hepatic steatosis and a nonobstructing renal calculus as well as diverticulosis of the descending and sigmoid colon without any evidence of diverticulitis. In the ED has received multiple doses of IV narcotics as well as IV Valium without any improvement in her abdominal pain. Review of Systems Review of Systems: Yes all other systems are reviewed and are negative [facility] Medical History Arthritis Peptic ulcer GERD (gastroesophageal reflux disease) CVA (cerebral vascular accident) SOB (shortness of breath) Atrial fibrillation Seizure On beta christina at home On anticoagulant therapy SANDEE (obstructive sleep apnea) Morbid obesity with BMI of 45.0-49.9, adult Gout High cholesterol Hypertension COVID-19 Osteoarthritis of knees, bilateral History of gastric ulcer Left inguinal hernia (~2013) Lab test positive for detection of COVID-19 virus (~11/2019) Bleeding disorder Asthma Family History Father Hx of diabetes insipidus Mother No problems noted. Surgical History History of back surgery S/P partial hysterectomy (11/10/18) H/O umbilical hernia repair (07/25/06) Hx of endoscopy Social History Household Members: Family and Children Housing: House Are you a primary pharmacist critical care to a significant other at home: No Do you presently have visiting nurse or other home services: No Alcohol intake: never Comment: counts correct Patient Tobacco Use Status: Never used Tobacco Smoked in Last 30 Days: No e-Cigarette/Vaping Use: Never Used Second Hand Smoke Exposure: No Advance Directives: Yes Advance Directives on File: Yes Advance Directives Date on File: 01/24/21 Patient : No service: No Current occupational status: unemployed Current occupation: right handed Meds Allergies Allergy/AdvReac Type Severity Reaction Status Date / Time bacitracin Allergy Mild Rash Verified 09/27/24 08:26 ibuprofen Allergy Unknown Verified 09/27/24 08:26 lisinopril Allergy Unknown Verified 09/27/24 08:26 aspirin AdvReac Mild mild Verified 09/27/24 08:26 vaginal bleeding Active Medications: Current Medications Acetaminophen (Acetaminophen 325 Mg Tablet) 650 mg PO Q6H PRN PRN Reason: Pain, Mild 1-3,fever,headache Calcium Carbonate (Calcium Carbonate 750 Mg Tab.Chew) 750 mg PO Q4H PRN PRN Reason: Heartburn Hydromorphone HCl (Hydromorphone Hcl 1 Mg/Ml Syringe) 0.5 mg IVPUSH Q4H PRN; Protocol PRN Reason: Pain, Severe (Pain Scale 7-10) Lactated Ringer's (Lr) 1,000 mls @ 100 mls/hr IVCONT .Q10H ISMA Magnesium Hydroxide (Milk Of Magnesia 30 Ml Oral.Susp) 30 ml PO DAILY PRN PRN Reason: Constipation Melatonin (Melatonin 3 Mg Tablet) 6 mg PO BEDTIME PRN PRN Reason: Insomnia Ondansetron HCl (Ondansetron Hcl 4 Mg/2 Ml Vial) 4 mg IVPUSH Q8H PRN PRN Reason: Nausea and Vomiting Oxycodone HCl (Oxycodone Hcl Immed Release 5 Mg Tablet) 5 mg PO Q6H PRN PRN Reason: Pain, Moderate(Pain Scale 4-6) Sodium Chloride (0.9 % Sodium Chloride Flush 3 Ml Syringe) 3 ml IVFLUSH QSHIFT [facility] Home Medications ?Medication ?Instructions ?Recorded ?Confirmed ?Last Taken ?Type albuterol sulfate 90 mcg/actuation 2 puff inhalation Q6H PRN 04/27/20 06/24/24 12/19/23 History aerosol inhaler (ProAir HFA) Shortness Of Breath cetirizine 10 mg tablet 10 mg PO BEDTIME 04/27/20 06/24/24 10/04/22 History docusate sodium 100 mg capsule 100 mg PO BID 04/27/20 06/24/24 12/27/22 History (DOK) duloxetine 30 mg capsule,delayed 30 mg PO BEDTIME 04/27/20 06/24/24 10/04/22 History release metoprolol tartrate 50 mg tablet 50 mg PO BID 04/27/20 06/24/24 12/19/23 History montelukast 10 mg tablet 10 mg PO BEDTIME 04/27/20 06/24/24 10/04/22 History clonidine HCl 0.1 mg tablet 0.1 mg PO BID 06/05/20 06/24/24 12/19/23 History apixaban 5 mg tablet (Eliquis) 5 mg PO BID 06/28/20 06/24/24 12/13/23 History losartan 100 mg tablet 100 mg PO DAILY 06/28/20 06/24/24 12/27/22 History furosemide 20 mg tablet 20 mg PO BID 12/25/21 06/24/24 12/27/22 History ergocalciferol (vitamin D2) 1,250 1,250 mcg PO FR@0900 01/08/22 06/24/24 12/27/22 History mcg (50,000 unit) capsule amlodipine 5 mg tablet 5 mg PO DAILY 09/24/22 06/24/24 12/19/23 History ascorbic acid (vitamin C) 500 mg 500 mg PO DAILY 10/06/22 06/24/24 10/05/22 09:00 History capsule,extended release omeprazole 40 mg capsule,delayed 40 mg PO BID 01/09/23 06/24/24 12/19/23 History release cyanocobalamin (vitamin B-12) 500 500 mcg PO DAILY 12/16/23 06/24/24 Unknown History mcg tablet (Vitamin B-12) rosuvastatin 20 mg tablet 20 mg PO DAILY 12/16/23 06/24/24 12/19/23 History multivitamin-iron sulfate 15 1 tab PO BEDTIME 04/15/24 06/24/24 Unknown History mg-folic acid 400 mcg tablet (Tab-A-Bing Multivitamin w-iron) Physical Exam Vital Signs and Narrative: Vital Signs: Last Vital Signs Temp 98.0 F 09/27/24 11:23 Pulse 73 09/27/24 11:23 Resp 15 09/27/24 11:23 BP 123/70 09/27/24 11:23 Pulse Ox 92 09/27/24 11:23 O2 Del Method Room Air 09/27/24 11:23 BMI result Body Mass Index 48.8 Constitutional - Awake and Alert, No apparent distress Eyes - PERRLA, EOMI Cardiovascular - S1S2, RRR, No edema Respiratory - Normal lung expansion, Normal respiratory effort, No respiratory distress, CTA bilaterally Gastrointestinal - soft but diffuse ttp greatest in RLE. ND; +BS; No rebound or guarding Extremities - no calf tenderness bilaterally, no swelling Skin - Warm/Dry Neurological - Alert & oriented x3 Psychological - Appropriate affect Results Labs 09/27/24 08:39 09/27/24 08:39 Labs: Laboratory Results - last 24 hr 09/27/24 09/27/24 08:39 10:30 MCV 90.1 MCH 30.0 MCHC 33.3 RDW 13.7 Plt Count 473 H MPV 10.2 Immature Gran % (Auto) 0.4 Neut % (Auto) 65.6 Lymph % (Auto) 26.6 [place] % (Auto) 5.5 Eos % (Auto) 1.6 Baso % (Auto) 0.3 Lymph # (Auto) 3.9 [place] # (Auto) 0.8 Eos # (Auto) 0.2 Baso # (Auto) 0.1 Abs Immat Gran (auto) 0.06 H Absolute Neuts (auto) 9.7 H Absolute Nucleated RBC 0.000 Nucleated RBC % (auto) 0.0 Anion Gap 11 L Estim Creat Clear Calc 136.3 Estimated GFR > 60 Random Glucose 108 Calcium 9.3 Magnesium 2.0 Total Bilirubin 0.3 AST 39 H ALT 39 H Alkaline Phosphatase 150 H Total Protein 8.3 H Albumin 4.3 Urine Color Dark Yellow Urine Appearance Clear Urine pH 8.0 Ur Specific [place] >= 1.030 H Urine Protein Trace Urine Glucose (UA) Negative Urine Ketones Negative Urine Blood Negative Urine Nitrite Negative Ur Leukocyte Esterase Negative Influenza Type A (PCR) NEGATIVE Influenza Type B (PCR) NEGATIVE RSV RNA Qual (PCR) NEGATIVE SARS-CoV-2 RNA (RT-PCR) NEGATIVE Imaging Radiologist's Impressions: Impressions Abdomen/Pelvis CT 09/27/24 09:51 IMPRESSION: Hepatic steatosis. 6 mm nonobstructing left renal calculus. Diverticulosis of the descending and sigmoid colon, without evidence of diverticulitis. No acute abnormality is identified. Electronically signed by: Apolinar Myres MD 09/27/2024 10:19 AM EDT RP Head CT 09/27/24 10:27 IMPRESSION: 1. The tentorium and dural reflections are somewhat hyperattenuating, most likely on the basis of recent contrast administration for a CT abdomen and pelvis performed 1 hour earlier. This limits the sensitivity for detection of subtle hemorrhage. Within these confines, no definite intracranial hemorrhage or mass effect. 2. No acute intracranial abnormality. Electronically signed by: Chacorta Lugo MD 09/27/2024 11:31 AM EDT RP Assessment and Plan (1) Intractable abdominal pain: Status: Acute (2) Nausea and vomiting: Status: Acute Plan 54-year-old female with history of hypertension, hyperlipidemia, gout, SANDEE on CPAP, paroxysmal atrial fibrillation anticoagulated with Eliquis, asthma, history of CVA, GERD, and chronic pain syndrome with osteoarthritis of multiple joints admitted for further management of intractble abd pain Intractable abdominal pain likely related to a viral gastroenteritis N/V and diffuse abdominal pain rhinitis and left lower quadrant x3 days. No diarrhea CT abdomen pelvis with contrast negative for any acute abdominal abnormality IV antiemetics p.r.n. IV pain management using pain scale with hydromorphone and oxycodone Leukocytosis 14.5 likely reactive secondary to vomiting Clear liquid diet Follow renal function electrolyte levels Paroxysmal atrial fibrillation-rate controlled Continue Eliquis for anticoagulation Continue metoprolol for rate control Hypertension Continue home antihypertensives SANDEE CPAP bedtime Migraine disorder Topamax, riboflavin,ubrogepant Unspecified persistent asthma No acute exacerbation Continue maintenance inhalers, albuterol p.r.n. History CVA/hyperlipidemia Continue Eliquis, statin Chronic pain syndrome Continue duloxetine gabapentin DVT prophylaxis-Eliquis Full code Patient requires inpatient stay at least 2 midnights for management of intractable abdominal pain which will require IV pain management Quality Stroke Does the patient have a stroke diagnosis?: No VTE Prior VTE?: No VTE Risk Level:: Medical - moderate - high VTE Device Contraindication: Treatment Not Indicated VTE Drug Contraindication: N/A - Med Ordered
--- NOTE | 2024-09-27 14:08 | PHA.MEDREC ---
Pharmacy Consult ? Medication Reconciliation Pharmacy has completed the medication reconciliation.med rec francesco, jose carlos
--- NOTE | 2024-09-27 14:08 | PHA.MEDREC ---
Pharmacy Consult ? Medication Reconciliation Pharmacy has completed the medication reconciliation.med rec complete, patient had med box information with her and was able to confirm her inhalers and injectables.
--- NOTE | 2024-09-27 14:51 | PC.NURSE ---
Report entered. Preparing to admit to room 385.
[2024-09-27] MEDS: Lactated Ringers 1,000 ML 100 ML IVCONT (15:20)
[2024-09-27] MEDS: Gabapentin 300 MG CAPSULE PO (20:27)
[2024-09-27] MEDS: Topiramate 100 MG TABLET PO (20:27)
[2024-09-27] MEDS: Docusate Sodium 100 MG CAPSULE PO (20:27)
[2024-09-27] MEDS: DULoxetine HCl 30 MG CAPSULE.DR PO (20:27)
[2024-09-27] MEDS: Furosemide 20 MG TABLET PO (20:27)
[2024-09-27] MEDS: Metoprolol Tartrate 50 MG TABLET PO (20:27)
[2024-09-27] MEDS: Montelukast Sodium 10 MG TABLET PO (20:27)
[2024-09-27] MEDS: cloNIDine HCL 0.1 MG TABLET PO (20:27)
[2024-09-27] MEDS: Multivitamin TABLET 1 TAB PO (20:27)
[2024-09-27] MEDS: Loratadine 10 MG TABLET PO (20:27)
[2024-09-27] MEDS: Omeprazole 40 MG CAPSULE.DR PO (20:28)
[2024-09-27] MEDS: HYDROmorphone HCl 1 MG/ML SYRINGE 0.5 MG IVPUSH (20:36)
[2024-09-27] MEDS: Metoclopramide HCl 10 MG/2 ML VIAL IVPUSH (21:20)
[2024-09-27] MEDS: Acetaminophen 325 MG TABLET 650 MG PO (23:18)
[2024-09-28] VITALS (8 sets, daily range): BP systolic 102–116; BP diastolic 53–75; PULSE 66–77; RESP 16–20; TEMP 36–36.8; O2SAT 90–95
[2024-09-28] MEDS: Lactated Ringers 1,000 ML 100 ML IVCONT ×3 (01:05→20:52)
[2024-09-28] MEDS: HYDROmorphone HCl 1 MG/ML SYRINGE 0.5 MG IVPUSH ×5 (02:35→22:36)
[2024-09-28] MEDS: ondansetron HCL 4 MG/2 ML VIAL IVPUSH ×3 (02:35→20:54)
[2024-09-28 06:48] LABS: MANUAL DIFF FLAG NO
[2024-09-28 06:59] LABS: Basophils Absolute Auto 0.1 X10*3/uL (0.0-0.2); Basophils Percent Auto 0.4 % (0-2); Eosinophils Absolute Auto 0.2 X10*3/uL (0.0-0.4); Eosinophils Percent Auto 1.8 % (0-4); Hematocrit 41.7 % (37.0-47.0); Hemoglobin 13.4 g/dl (12.0-16.0); Imm Gran Abs Auto 0.05 X10*3/uL (0.00-0.03); Imm Gran Pct Auto 0.4 % (0.0-0.4); Lymphocytes Absolute Auto 4.1 X10*3/uL (1.2-4.9); Lymphocytes Percent Auto 31.7 % (20-40); Mean Corpuscular HGB Conc 32.1 g/dl (31.0-35.0); Mean Corpuscular Hemoglobin 29.3 pg (27.0-33.0); Mean Corpuscular Volume 91.2 fL (80.0-98.0); Mean Platelet Volume 10.5 fL (9.4-12.3); Monocytes Absolute Auto 0.9 X10*3/uL (0.1-1.2); Monocytes Percent Auto 6.6 % (2-11); Neutrophils Absolute Auto 7.7 x10*3/uL (2.0-8.3); Neutrophils Percent Auto 59.1 % (45-73); Platelet Count 449 X10*3/uL (160-400); Red Blood Count 4.57 X10*6/uL (4.20-5.50)
[2024-09-28 07:16] LABS: Anion Gap 12 (12-20); Blood Urea Nitrogen 19 mg/dL (9-16); Carbon Dioxide 26 mmol/L (22-29); Chloride 105 mmol/L (96-108); Creatinine Clr Calc Pharmacy 143.8; Estimated Glomerular Filt Rate > 60; Glucose Random 91 mg/dL (60-115); Potassium 3.8 mmol/L (3.3-5.1); Sodium 139 mmol/L (135-145)
[2024-09-28] MEDS: 0.9 % Sodium Chloride Flush 3 ML SYRINGE IVFLUSH (07:19)
[2024-09-28] MEDS: Fluticasone/Vilanterol 200/25 BLST.W.DEV 1 PUFF INHALE (08:09)
[2024-09-28] MEDS: Omeprazole 40 MG CAPSULE.DR PO ×2 (08:37→20:54)
[2024-09-28] MEDS: Topiramate 25 MG TABLET 50 MG PO (08:37)
[2024-09-28] MEDS: cloNIDine HCL 0.1 MG TABLET PO ×2 (08:37→20:54)
[2024-09-28] MEDS: Furosemide 20 MG TABLET PO ×2 (08:38→20:53)
[2024-09-28] MEDS: Cyanocobalamin (Vitamin B-12) 500 MCG TABLET PO (08:38)
[2024-09-28] MEDS: Docusate Sodium 100 MG CAPSULE PO ×2 (08:38→20:54)
[2024-09-28] MEDS: Ferrous Sulfate 324 MG TABLET.DR PO (08:38)
[2024-09-28] MEDS: Metoprolol Tartrate 50 MG TABLET PO ×2 (08:38→20:54)
[2024-09-28] MEDS: Ascorbic Acid 500 MG TABLET PO (08:38)
[2024-09-28] MEDS: Gabapentin 300 MG CAPSULE PO ×2 (08:38→20:54)
--- NOTE | 2024-09-28 13:47 | MHC.CM.PN ---
IMM DELIVERED PT LIVES WITH ADULT CHILDREN. PT USES [facility] FOR MOBILITY AND HAS A WALKER NEEDED. + HCP ON FILE. PCP DR. MEDELLIN AT [facility]. DP: HOME, NO SERVICES IS THE GOAL. PT WILL NEED A L[facility]FT RIDE HOME. CM WILL CONTINUE TO FOLLOW FOR ANY CHANGE TO DC PLAN/NEEDS.
--- NOTE | 2024-09-28 13:51 | HO.PM.IMPN ---
Subjective Subjective Date of Service: 09/28/24 Interval History: Minimal improvement overnight. Still nauseous Review of Systems Denies chest pain Denies shortness of breath Admits nausea vomiting denies diarrhea Denies fever chills Physical Exam Vital Signs: Vital Signs: Last Vital Signs Temp 98.1 F 09/28/24 07:12 Pulse 66 09/28/24 08:11 Resp 18 09/28/24 08:11 BP 115/55 L 09/28/24 07:12 Pulse Ox 94 09/28/24 07:12 O2 Del Method Room Air 09/28/24 07:12 BMI result Body Mass Index 48.8 Const: Other: Awake alert no acute distress Resp: Other: Clear to auscultation bilaterally. No rales rhonchi or wheezes Cardio: Other: No S4; positive S1-S2; no S3 murmurs rubs or gallops GI: Other: Soft nontender nondistended normoactive bowel sounds Extrem: Other: No edema bilaterally Objective Data Active Medications Acetaminophen (Acetaminophen 325 Mg Tablet) 650 mg PO Q6H PRN PRN Reason: Pain, Mild 1-3,fever,headache Last Admin: 09/27/24 23:18 Dose: 650 mg Documented By: ERIC Albuterol Sulfate (Albuterol Sulfate (0.083%) 2.5 Mg/3 Ml Vial.Neb) 2.5 mg INHALE Q4H PRN PRN Reason: Respiratory Distress Albuterol Sulfate (Albuterol Sulfate 90 Mcg 8 Gm Inhaler) 2 puff INHALE Q4H PRN PRN Reason: Respiratory Distress Amlodipine Besylate (Amlodipine Besylate 5 Mg Tablet) 5 mg PO DAILY [facility]; Protocol Last Admin: 09/28/24 08:21 Dose: Not Given Documented By: GRECIA Non-Admin Reason: Physician Held Med Ascorbic Acid (Ascorbic Acid 500 Mg Tablet) 500 mg PO DAILY [facility] Last Admin: 09/28/24 08:38 Dose: 500 mg Documented By: GRECIA Atorvastatin Calcium (Atorvastatin Calcium 80 Mg Tablet) 80 mg PO BEDTIME [facility] Calcium Carbonate (Calcium Carbonate 750 Mg Tab.Chew) 750 mg PO Q4H PRN PRN Reason: Heartburn Clonidine HCl (Clonidine Hcl 0.1 Mg Tablet) 0.1 mg PO BID [facility]; Protocol Last Admin: 09/28/24 08:37 Dose: 0.1 mg Documented By: GRECIA Cyanocobalamin (Cyanocobalamin (Vitamin B-12) 500 Mcg Tablet) 500 mcg PO DAILY [facility] Last Admin: 09/28/24 08:38 Dose: 500 mcg Documented By: GRECIA Docusate Sodium (Docusate Sodium 100 Mg Capsule) 100 mg PO BID [facility] Last Admin: 09/28/24 08:38 Dose: 100 mg Documented By: GRECIA Duloxetine HCl (Duloxetine Hcl 30 Mg Capsule.) 30 mg PO BEDTIME [facility] Last Admin: 09/27/24 20:27 Dose: 30 mg Documented By: ERIC Ergocalciferol (Ergocalciferol (Vitamin D2) 1,250 Mcg Capsule) 1,250 mcg PO FR@0900 [facility] Ferrous Sulfate (Ferrous Sulfate 324 Mg Tablet.) 324 mg PO DAILY [facility] Last Admin: 09/28/24 08:38 Dose: 324 mg Documented By: GRECIA Fluticasone/Vilanterol (Fluticasone/Vilanterol 200/25 Blst.W.Dev) 1 puff INHALE RDAILY [facility] Last Admin: 09/28/24 08:09 Dose: 1 puff Documented By: REID Furosemide (Furosemide 20 Mg Tablet) 20 mg PO BID [facility]; Protocol Last Admin: 09/28/24 08:38 Dose: 20 mg Documented By: GRECIA Gabapentin (Gabapentin 300 Mg Capsule) 300 mg PO BID [facility] Last Admin: 09/28/24 08:38 Dose: 300 mg Documented By: GRECIA Hydromorphone HCl (Hydromorphone Hcl 1 Mg/Ml Syringe) 0.5 mg IVPUSH Q4H PRN; Protocol PRN Reason: Pain, Severe (Pain Scale 7-10) Last Admin: 09/28/24 12:04 Dose: 0.5 mg Documented By: GRECIA Lactated Ringer's (Lr) 1,000 mls @ 100 mls/hr IVCONT .Q10H [facility] Last Admin: 09/28/24 10:42 Dose: 100 mls/hr Documented By: GRECIA Loratadine (Loratadine 10 Mg Tablet) 10 mg PO BEDTIME [facility] Last Admin: 09/27/24 20:27 Dose: 10 mg Documented By: ERIC Losartan Potassium (Losartan Potassium 50 Mg Tablet) 100 mg PO DAILY [facility]; Protocol Last Admin: 09/28/24 08:21 Dose: Not Given Documented By: GRECIA Non-Admin Reason: Physician Held Med Magnesium Hydroxide (Milk Of Magnesia 30 Ml Oral.Susp) 30 ml PO DAILY PRN PRN Reason: Constipation Melatonin (Melatonin 3 Mg Tablet) 6 mg PO BEDTIME PRN PRN Reason: Insomnia Metoprolol Tartrate (Metoprolol Tartrate 50 Mg Tablet) 50 mg PO BID [facility]; Protocol Last Admin: 09/28/24 08:38 Dose: 50 mg Documented By: GRECIA Montelukast Sodium (Montelukast Sodium 10 Mg Tablet) 10 mg PO BEDTIME [facility] Last Admin: 09/27/24 20:27 Dose: 10 mg Documented By: ERIC Multivitamins/Vitamin C (Multivitamin Tablet) 1 tab PO BEDTIME [facility] Last Admin: 09/27/24 20:27 Dose: 1 tab Documented By: ERIC Naloxone HCl (Naloxone Hcl Nasal 4 Mg [place]) 4 mg NOSTRILALT Q2M PRN PRN Reason: opioid overdose Omeprazole (Omeprazole 40 Mg Capsule.Dr) 40 mg PO BID [facility] Last Admin: 09/28/24 08:37 Dose: 40 mg Documented By: GRECIA Ondansetron HCl (Ondansetron Hcl 4 Mg/2 Ml Vial) 4 mg IVPUSH Q8H PRN PRN Reason: Nausea and Vomiting Last Admin: 09/28/24 10:40 Dose: 4 mg Documented By: GRECIA Oxycodone HCl (Oxycodone Hcl Immed Release 5 Mg Tablet) 5 mg PO Q6H PRN PRN Reason: Pain, Moderate(Pain Scale 4-6) Sodium Chloride (0.9 % Sodium Chloride Flush 3 Ml Syringe) 3 ml IVFLUSH QSHIFT [facility] Last Admin: 09/28/24 07:19 Dose: 3 ml Documented By: GRECIA Topiramate (Topiramate 25 Mg Tablet) 50 mg PO DAILY [facility] Last Admin: 09/28/24 08:37 Dose: 50 mg Documented By: GRECIA Topiramate (Topiramate 100 Mg Tablet) 100 mg PO BEDTIME [facility] Last Admin: 09/27/24 20:27 Dose: 100 mg Documented By: ERIC Labs 09/28/24 06:17 09/28/24 06:17 Labs: Laboratory Results - last 24 hr 09/28/24 06:17 MCV 91.2 MCH 29.3 MCHC 32.1 RDW 14.0 Plt Count 449 H MPV 10.5 Immature Gran % (Auto) 0.4 Neut % (Auto) 59.1 Lymph % (Auto) 31.7 [place] % (Auto) 6.6 Eos % (Auto) 1.8 Baso % (Auto) 0.4 Lymph # (Auto) 4.1 [place] # (Auto) 0.9 Eos # (Auto) 0.2 Baso # (Auto) 0.1 Abs Immat Gran (auto) 0.05 H Absolute Neuts (auto) 7.7 Absolute Nucleated RBC 0.000 Nucleated RBC % (auto) 0.0 Anion Gap 12 Estim Creat Clear Calc 143.8 Estimated GFR > 60 Random Glucose 91 Calcium 9.0 Assessment and Plan (1) Viral gastroenteritis: Status: Acute Plan 54-year-old female with history of hypertension, hyperlipidemia, gout, SANDEE on CPAP, paroxysmal atrial fibrillation anticoagulated with Eliquis, asthma, history of CVA, GERD, and chronic pain syndrome with osteoarthritis of multiple joints admitted for further management of intractble abd pain 1.Viral gastroenteritis -IV antiemetics p.r.n. -IV pain management using pain scale with hydromorphone and oxycodone -clear liquid diet... Advance as tolerated -follow renals/divalents 2.Paroxysmal atrial fibrillation-rate -examines in sinus rhythm -continue Eliquis as ordered 3.Hypertension -acceptable control on current therapies -adjust as indicated 4.History CVA/hyperlipidemia -ontinue Eliquis, statin Eliquis Full code Patient requires ongoing hospitalization for IV volume to supplement p.o. intake secondary to nausea and vomiting. High risk for outpatient failure Quality Stroke Does the patient have a stroke diagnosis?: No VTE Prior VTE?: No VTE Risk Level:: Medical - moderate - high VTE Device Contraindication: Treatment Not Indicated VTE Drug Contraindication: N/A - Med Ordered
[2024-09-28] MEDS: oxyCODONE HCl Immed Release 5 MG TABLET PO ×2 (14:29→21:05)
[2024-09-28] MEDS: Cyclobenzaprine HCl 10 MG TABLET PO ×2 (14:51→20:53)
[2024-09-28 15:03] LABS: Glucose, Whole Blood 106 mg/dL (60-115)
--- NOTE | 2024-09-28 18:03 | PC.NURSE ---
patient manager progressive care was helping patient to the commode when she became unresponsive. PCT called a rapid response. MD came to bedside and ordered 0.5mg of ativan. Patient is known to this hospital and has episodes like this in the past. Awake, alert and rtesponsive now with no post-ictal signs or symptoms, vitals all WNL
[2024-09-28] MEDS: Loratadine 10 MG TABLET PO (20:53)
[2024-09-28] MEDS: Topiramate 100 MG TABLET PO (20:53)
[2024-09-28] MEDS: Montelukast Sodium 10 MG TABLET PO (20:54)
[2024-09-28] MEDS: DULoxetine HCl 30 MG CAPSULE.DR PO (20:54)
[2024-09-28] MEDS: Atorvastatin Calcium 80 MG TABLET PO (20:54)
[2024-09-28] MEDS: Multivitamin TABLET 1 TAB PO (20:54)
[2024-09-29] VITALS (7 sets, daily range): BP systolic 106–118; BP diastolic 56–62; PULSE 61–92; RESP 16–18; TEMP 36.1–36.5; O2SAT 93–96
[2024-09-29] MEDS: HYDROmorphone HCl 1 MG/ML SYRINGE 0.5 MG IVPUSH ×2 (03:15→07:48)
[2024-09-29] MEDS: Lactated Ringers 1,000 ML 100 ML IVCONT ×2 (05:37→17:54)
[2024-09-29] MEDS: oxyCODONE HCl Immed Release 5 MG TABLET PO ×2 (05:40→12:13)
[2024-09-29] MEDS: Fluticasone/Vilanterol 200/25 BLST.W.DEV 1 PUFF INHALE (07:48)
[2024-09-29] MEDS: Losartan Potassium 50 MG TABLET 100 MG PO (07:57)
[2024-09-29] MEDS: Topiramate 25 MG TABLET 50 MG PO (07:58)
[2024-09-29] MEDS: cloNIDine HCL 0.1 MG TABLET PO ×2 (07:59→21:22)
[2024-09-29] MEDS: amLODIPine Besylate 5 MG TABLET PO (07:59)
[2024-09-29] MEDS: Omeprazole 40 MG CAPSULE.DR PO ×2 (07:59→21:21)
[2024-09-29] MEDS: Ferrous Sulfate 324 MG TABLET.DR PO (07:59)
[2024-09-29] MEDS: Cyclobenzaprine HCl 10 MG TABLET PO ×3 (08:00→21:21)
[2024-09-29] MEDS: Gabapentin 300 MG CAPSULE PO ×2 (08:00→21:22)
[2024-09-29] MEDS: Metoprolol Tartrate 50 MG TABLET PO ×2 (08:01→21:22)
[2024-09-29] MEDS: Ascorbic Acid 500 MG TABLET PO (08:01)
[2024-09-29] MEDS: Cyanocobalamin (Vitamin B-12) 500 MCG TABLET PO (08:02)
[2024-09-29] MEDS: Milk of Magnesia 30 ML ORAL.SUSP PO (08:02)
[2024-09-29] MEDS: Docusate Sodium 100 MG CAPSULE PO ×2 (08:02→21:21)
[2024-09-29] MEDS: Furosemide 20 MG TABLET PO (08:02)
[2024-09-29] MEDS: Acetaminophen 325 MG TABLET 650 MG PO (12:13)
--- NOTE | 2024-09-29 13:16 | P.PNIM_ITS ---
Subjective Subjective Date of Service: 09/29/24 Interval History: Slow to improve. Belly pain somewhat better appetite poor Review of Systems Denies chest pain Denies shortness of breath Admits nausea vomiting denies diarrhea Denies fever chills Physical Exam 2 Vital Signs: Vital Signs: Last Vital Signs Temp 97.0 F 09/29/24 07:24 Pulse 92 09/29/24 07:50 Resp 18 09/29/24 07:50 BP 110/62 09/29/24 07:59 Pulse Ox 94 09/29/24 07:24 O2 Del Method Room Air 09/29/24 07:24 BMI result Body Mass Index 48.8 Const: Other: Awake alert no acute distress Resp: Other: Clear to auscultation bilaterally. No rales rhonchi or wheezes Cardio: Other: No S4; positive S1-S2; no S3 murmurs rubs or gallops GI: Other: Soft nontender nondistended normoactive bowel sounds Extrem: Other: No edema bilaterally Objective Data Active Medications Acetaminophen (Acetaminophen 325 Mg Tablet) 650 mg PO Q6H PRN PRN Reason: Pain, Mild 1-3,fever,headache Last Admin: 09/29/24 12:13 Dose: 650 mg Documented By: HEBERT Acetaminophen/Butalbital/Caffeine (Butalb/Acetamin/Caff 50/325/40 Tablet) 1 tab PO Q4H PRN PRN Reason: Headache/Pain, Scale 1-10 Albuterol Sulfate (Albuterol Sulfate (0.083%) 2.5 Mg/3 Ml Vial.Neb) 2.5 mg INHALE Q4H PRN PRN Reason: Respiratory Distress Albuterol Sulfate (Albuterol Sulfate 90 Mcg 8 Gm Inhaler) 2 puff INHALE Q4H PRN PRN Reason: Respiratory Distress Amlodipine Besylate (Amlodipine Besylate 5 Mg Tablet) 5 mg PO DAILY [facility]; Protocol Last Admin: 09/29/24 07:59 Dose: 5 mg Documented By: FRANCHESCA Ascorbic Acid (Ascorbic Acid 500 Mg Tablet) 500 mg PO DAILY [facility] Last Admin: 09/29/24 08:01 Dose: 500 mg Documented By: FRANCHESCA Atorvastatin Calcium (Atorvastatin Calcium 80 Mg Tablet) 80 mg PO BEDTIME [facility] Last Admin: 09/28/24 20:54 Dose: 80 mg Documented By: ERIC Calcium Carbonate (Calcium Carbonate 750 Mg Tab.Chew) 750 mg PO Q4H PRN PRN Reason: Heartburn Clonidine HCl (Clonidine Hcl 0.1 Mg Tablet) 0.1 mg PO BID [facility]; Protocol Last Admin: 09/29/24 07:59 Dose: 0.1 mg Documented By: FRANCHESCA Cyanocobalamin (Cyanocobalamin (Vitamin B-12) 500 Mcg Tablet) 500 mcg PO DAILY [facility] Last Admin: 09/29/24 08:02 Dose: 500 mcg Documented By: FRANCHESCA Cyclobenzaprine HCl (Cyclobenzaprine Hcl 10 Mg Tablet) 10 mg PO TID [facility] Last Admin: 09/29/24 08:00 Dose: 10 mg Documented By: FRANCHESCA Docusate Sodium (Docusate Sodium 100 Mg Capsule) 100 mg PO BID [facility] Last Admin: 09/29/24 08:02 Dose: 100 mg Documented By: FRANCHESCA Duloxetine HCl (Duloxetine Hcl 30 Mg Capsule.) 30 mg PO BEDTIME [facility] Last Admin: 09/28/24 20:54 Dose: 30 mg Documented By: ERIC Ergocalciferol (Ergocalciferol (Vitamin D2) 1,250 Mcg Capsule) 1,250 mcg PO FR@0900 [facility] Ferrous Sulfate (Ferrous Sulfate 324 Mg Tablet.) 324 mg PO DAILY [facility] Last Admin: 09/29/24 07:59 Dose: 324 mg Documented By: FRANCHESCA Fluticasone/Vilanterol (Fluticasone/Vilanterol 200/25 Blst.W.Dev) 1 puff INHALE RDAILY [facility] Last Admin: 09/29/24 07:48 Dose: 1 puff Documented By: MARCUS Furosemide (Furosemide 20 Mg Tablet) 20 mg PO BID [facility]; Protocol Last Admin: 09/29/24 08:02 Dose: 20 mg Documented By: FRANCHESCA Gabapentin (Gabapentin 300 Mg Capsule) 300 mg PO BID [facility] Last Admin: 09/29/24 08:00 Dose: 300 mg Documented By: FRANCHESCA Lactated Ringer's (Lr) 1,000 mls @ 100 mls/hr IVCONT .Q10H [facility] Last Admin: 09/29/24 05:37 Dose: 100 mls/hr Documented By: ERIC Loratadine (Loratadine 10 Mg Tablet) 10 mg PO BEDTIME [facility] Last Admin: 09/28/24 20:53 Dose: 10 mg Documented By: ERIC Losartan Potassium (Losartan Potassium 50 Mg Tablet) 100 mg PO DAILY [facility]; Protocol Last Admin: 09/29/24 07:57 Dose: 100 mg Documented By: FRANCHESCA Magnesium Hydroxide (Milk Of Magnesia 30 Ml Oral.Susp) 30 ml PO DAILY PRN PRN Reason: Constipation Last Admin: 09/29/24 08:02 Dose: 30 ml Documented By: FRANCHESCA Melatonin (Melatonin 3 Mg Tablet) 6 mg PO BEDTIME PRN PRN Reason: Insomnia Metoprolol Tartrate (Metoprolol Tartrate 50 Mg Tablet) 50 mg PO BID [facility]; Protocol Last Admin: 09/29/24 08:01 Dose: 50 mg Documented By: FRANCHESCA Montelukast Sodium (Montelukast Sodium 10 Mg Tablet) 10 mg PO BEDTIME [facility] Last Admin: 09/28/24 20:54 Dose: 10 mg Documented By: ERIC Multivitamins/Vitamin C (Multivitamin Tablet) 1 tab PO BEDTIME [facility] Last Admin: 09/28/24 20:54 Dose: 1 tab Documented By: ERIC Naloxone HCl (Naloxone Hcl Nasal 4 Mg [place]) 4 mg NOSTRILALT Q2M PRN PRN Reason: opioid overdose Omeprazole (Omeprazole 40 Mg Capsule.Dr) 40 mg PO BID [facility] Last Admin: 09/29/24 07:59 Dose: 40 mg Documented By: FRANCHESCA Ondansetron HCl (Ondansetron Hcl 4 Mg/2 Ml Vial) 4 mg IVPUSH Q8H PRN PRN Reason: Nausea and Vomiting Last Admin: 09/28/24 20:54 Dose: 4 mg Documented By: ERIC Oxycodone HCl (Oxycodone Hcl Immed Release 5 Mg Tablet) 10 mg PO Q6H PRN PRN Reason: Pain, Severe (Pain Scale 7-10) Sodium Chloride (0.9 % Sodium Chloride Flush 3 Ml Syringe) 3 ml IVFLUSH QSHIFT [facility] Last Admin: 09/29/24 07:12 Dose: Not Given Documented By: GRECIA Non-Admin Reason: IV Running Topiramate (Topiramate 25 Mg Tablet) 50 mg PO DAILY [facility] Last Admin: 09/29/24 07:58 Dose: 50 mg Documented By: FRANCHESCA Topiramate (Topiramate 100 Mg Tablet) 100 mg PO BEDTIME [facility] Last Admin: 09/28/24 20:53 Dose: 100 mg Documented By: ERIC Labs 09/28/24 06:17 09/28/24 06:17 Labs: Laboratory Results - last 24 hr 09/28/24 14:58 POC Glucose 106 Assessment and Plan (1) Viral gastroenteritis: Status: Acute Plan 54-year-old female with history of hypertension, hyperlipidemia, gout, SANDEE on CPAP, paroxysmal atrial fibrillation anticoagulated with Eliquis, asthma, history of CVA, GERD, and chronic pain syndrome with osteoarthritis of multiple joints admitted for further management of intractble abd pain 1.Viral gastroenteritis -IV antiemetics p.r.n. -DC IV Dilaudid. . . Continue oxycodone -full liquid diet... Advance as tolerated -follow renals/divalents 2.Paroxysmal atrial fibrillation-rate -examines in sinus rhythm -continue Eliquis as ordered 3.Hypertension -acceptable control on current therapies -adjust as indicated 4.History CVA/hyperlipidemia -ontinue Eliquis, statin Eliquis Full code Patient requires ongoing hospitalization for IV volume to supplement p.o. intake secondary to nausea and vomiting. High risk for outpatient failure Quality Stroke Does the patient have a stroke diagnosis?: No VTE Prior VTE?: No VTE Risk Level:: Medical - moderate - high VTE Device Contraindication: Treatment Not Indicated VTE Drug Contraindication: N/A - Med Ordered
[2024-09-29] MEDS: ondansetron HCL 4 MG/2 ML VIAL IVPUSH ×2 (13:35→23:46)
[2024-09-29] MEDS: oxyCODONE HCl Immed Release 5 MG TABLET 10 MG PO (17:54)
[2024-09-29] MEDS: Multivitamin TABLET 1 TAB PO (21:21)
[2024-09-29] MEDS: Atorvastatin Calcium 80 MG TABLET PO (21:21)
[2024-09-29] MEDS: Loratadine 10 MG TABLET PO (21:21)
[2024-09-29] MEDS: Montelukast Sodium 10 MG TABLET PO (21:22)
[2024-09-29] MEDS: DULoxetine HCl 30 MG CAPSULE.DR PO (21:22)
[2024-09-29] MEDS: Topiramate 100 MG TABLET PO (21:22)
[2024-09-30] MEDS: 0.9 % Sodium Chloride Flush 3 ML SYRINGE IVFLUSH (00:23)
[2024-09-30] MEDS: oxyCODONE HCl Immed Release 5 MG TABLET 10 MG PO ×2 (01:20→07:32)
[2024-09-30] MEDS: Acetaminophen 325 MG TABLET 650 MG PO (02:28)
[2024-09-30 03:52] VITALS: BP 119/60; PULSE 62; RESP 18; TEMP 37; O2SAT 94
[2024-09-30] MEDS: Lactated Ringers 1,000 ML 100 ML IVCONT (04:01)
[2024-09-30 06:27] LABS: MANUAL DIFF FLAG NO
[2024-09-30 06:43] LABS: Basophils Absolute Auto 0.1 X10*3/uL (0.0-0.2); Basophils Percent Auto 0.5 % (0-2); Eosinophils Absolute Auto 0.3 X10*3/uL (0.0-0.4); Eosinophils Percent Auto 3.1 % (0-4); Hematocrit 38.4 % (37.0-47.0); Imm Gran Abs Auto 0.04 X10*3/uL (0.00-0.03); Imm Gran Pct Auto 0.4 % (0.0-0.4); Lymphocytes Absolute Auto 3.1 X10*3/uL (1.2-4.9); Lymphocytes Percent Auto 29.9 % (20-40); Mean Corpuscular HGB Conc 31.3 g/dl (31.0-35.0); Mean Corpuscular Hemoglobin 28.8 pg (27.0-33.0); Mean Corpuscular Volume 92.3 fL (80.0-98.0); Mean Platelet Volume 10.5 fL (9.4-12.3); Monocytes Absolute Auto 0.7 X10*3/uL (0.1-1.2); Neutrophils Absolute Auto 6.1 x10*3/uL (2.0-8.3); Neutrophils Percent Auto 59.1 % (45-73); Platelet Count 406 X10*3/uL (160-400); Red Blood Count 4.16 X10*6/uL (4.20-5.50); Red Cell Distribution Width 13.9 % (11.0-16.0); White Blood Count 10.3 X10*3/uL (4.8-10.8)
[2024-09-30 07:29] VITALS: BP 117/71; PULSE 62; RESP 16; TEMP 36; O2SAT 92
[2024-09-30 07:31] LABS: Alanine Aminotransferase 25 U/L (0-31); Albumin Level 3.7 g/dL (3.5-5.0); Anion Gap 10 (12-20); Aspartate Amino Transferase 30 U/L (5-31); Bilirubin Total 0.3 mg/dL (0.0-1.0); Blood Urea Nitrogen 11 mg/dL (9-16); Calcium 8.9 mg/dL (8.4-10.2); Carbon Dioxide 30 mmol/L (22-29); Chloride 107 mmol/L (96-108); Estimated Glomerular Filt Rate > 60; Glucose Fasting 85 mg/dL (60-99); Potassium 4.2 mmol/L (3.3-5.1); Sodium 143 mmol/L (135-145); Total Protein 6.8 g/dL (6.5-8.0)
[2024-09-30] MEDS: ondansetron HCL 4 MG/2 ML VIAL IVPUSH (07:31)
[2024-09-30 08:20] LABS: Alkaline Phosphatase 117 U/L (39-117)
[2024-09-30] MEDS: Metoprolol Tartrate 50 MG TABLET PO (08:27)
[2024-09-30] MEDS: Losartan Potassium 50 MG TABLET 100 MG PO (08:28)
[2024-09-30] MEDS: amLODIPine Besylate 5 MG TABLET PO (08:28)
[2024-09-30] MEDS: Topiramate 25 MG TABLET 50 MG PO (08:28)
[2024-09-30] MEDS: Ferrous Sulfate 324 MG TABLET.DR PO (08:28)
[2024-09-30] MEDS: Cyanocobalamin (Vitamin B-12) 500 MCG TABLET PO (08:28)
[2024-09-30] MEDS: Cyclobenzaprine HCl 10 MG TABLET PO (08:28)
[2024-09-30] MEDS: Docusate Sodium 100 MG CAPSULE PO (08:28)
[2024-09-30] MEDS: Omeprazole 40 MG CAPSULE.DR PO (08:28)
[2024-09-30] MEDS: Ascorbic Acid 500 MG TABLET PO (08:29)
[2024-09-30] MEDS: cloNIDine HCL 0.1 MG TABLET PO (08:29)
[2024-09-30] MEDS: Gabapentin 300 MG CAPSULE PO (08:29)
[2024-09-30] MEDS: Fluticasone/Vilanterol 200/25 BLST.W.DEV 1 PUFF INHALE (08:32)
[2024-09-30 08:33] VITALS: PULSE 85; RESP 16; O2SAT 90
--- NOTE | 2024-09-30 13:49 | PM.DS ---
DS: Providers Provider Date of Service: 09/30/24 Date of admission: 09/27/24 13:31 Date of discharge: 09/30/24 Primary care physician: Davina Marie MD Attending physician on discharge: Randy Vázquez Discharging clinician: Faith Desir DS: Diagnosis Discharge Diagnosis (1) Viral gastroenteritis: Status: Acute DS: Summary Hospital Course Hospital Course: From H&P on the day of admission 54-year-old female with history of hypertension, hyperlipidemia, gout, SANDEE on CPAP, paroxysmal atrial fibrillation anticoagulated with Eliquis, asthma, history of CVA, GERD, and chronic pain syndrome with osteoarthritis of multiple joints presented to the ED earlier today for evaluation of severe 10/10 diffuse abdominal pain greatest in the left lower quadrant. No radiation. She also states that she has had nausea and vomiting ongoing for 3 days. There have been no fevers, chills, hematemesis, diarrhea, constipation, melena, hematochezia. Denies any known sick contacts. No bad foods. In the ED, vital signs have been stable. Leukocytosis 14.5. No anemia. Renal function electrolyte levels normal. AST 39, ALT 39, alkaline phosphatase 150. Urinalysis undetectable. Negative for COVID, flu, RSV. Head CT negative for intracranial abnormality but does show residual contrast from prior CT limiting sensitivity. CT abdomen/pelvis shows hepatic steatosis and a nonobstructing renal calculus as well as diverticulosis of the descending and sigmoid colon without any evidence of diverticulitis. In the ED has received multiple doses of IV narcotics as well as IV Valium without any improvement in her abdominal pain. Abdominal pain. Likely due to viral gastroenteritis. Patient was treated symptomatically, her pain gradually improved and her diet was gradually advanced. She has remained afebrile, leukocytosis resolved, was likely reactive. CT scan of the abdomen with no obvious source of abdominal pain. No significant diarrhea during hospitalization. Transaminitis is were slightly elevated but normalized, CT scan showing hepatic steatosis. Patient was tolerating regular diet on the day of discharge. Additional consideration for GI symptoms due to zepbound - recommend to discuss with prescribing provider. Time Attestation Discharge Coordination Time (in mins): 32 Quality: Safe Use of Opioids Does Pt have an Active Cancer Diagnosis on the Problem List?: No Quality: Stroke Does the patient have a stroke diagnosis?: No Physical Exam Vital Signs: Vital Signs: Last Vital Signs Temp 96.8 F 09/30/24 07:29 Pulse 85 09/30/24 08:33 Resp 16 09/30/24 08:33 BP 117/71 09/30/24 07:29 Pulse Ox 92 09/30/24 07:29 O2 Del Method Room Air 09/30/24 07:29 BMI result Body Mass Index 48.8 Const: General: cooperative, comfortable, no acute distress, alert and awake Nutritional Appearance: average body habitus Orientation/consciousness: patient oriented x3 Resp: Effort & Inspection: normal respiratory effort, able to speak in complete sentences, no respiratory distress and no use of accessory muscles GI: Inspection: No distended Palpation (GI): Soft to palpation and nontender Neuro: General: patient oriented x3 DS: Data Data Completed and Pending Labs on day of discharge: Laboratory Results - last 24 hr 09/30/24 06:24 WBC 10.3 RBC 4.16 L Hgb 12.0 Hct 38.4 MCV 92.3 MCH 28.8 MCHC 31.3 RDW 13.9 Plt Count 406 H MPV 10.5 Immature Gran % (Auto) 0.4 Neut % (Auto) 59.1 Lymph % (Auto) 29.9 [place] % (Auto) 7.0 Eos % (Auto) 3.1 Baso % (Auto) 0.5 Lymph # (Auto) 3.1 [place] # (Auto) 0.7 Eos # (Auto) 0.3 Baso # (Auto) 0.1 Abs Immat Gran (auto) 0.04 H Absolute Neuts (auto) 6.1 Absolute Nucleated RBC 0.000 Nucleated RBC % (auto) 0.0 Sodium 143 Potassium 4.2 Chloride 107 Carbon Dioxide 30 H Anion Gap 10 L BUN 11 Creatinine 0.75 Estim Creat Clear Calc 138.0 Estimated GFR > 60 Fasting Glucose 85 Calcium 8.9 Total Bilirubin 0.3 AST 30 ALT 25 Alkaline Phosphatase 117 Total Protein 6.8 Albumin 3.7 Discharge Plan Discharge Anticipated Discharge Date/Time: 09/30/24 13:45 Patient Disposition: Home, Self-Care Discharge Diagnosis: abdominal pain, possibly due to viral gastroenteritis Referrals: Davina Marie MD [Primary Care Provider] - 1 Week Discharge Medications: Continued naloxone 4 mg/actuation spray,non-aerosol 4 mg intranasal Q2M PRN (Reason: opioid overdose) 1 Days Qty: 2 4RF Rx Instructions: spray 1 dose into ONE nostril; alternate nostrils w each dose until help arrives gabapentin 300 mg capsule 300 mg PO BID 30 Days Qty: 60 3RF topiramate 100 mg tablet 100 mg PO BEDTIME 30 Days Qty: 30 6RF topiramate 25 mg tablet 50 mg PO DAILY 30 Days Qty: 60 3RF Rx Instructions: continues topiramate 100mg qhs ascorbic acid (vitamin C) 500 mg capsule, extended release 500 mg PO DAILY Rx Instructions: take with iron cyanocobalamin (vitamin B-12) [Vitamin B-12] 500 mcg Tablet 500 mcg PO DAILY rosuvastatin 20 mg Tablet 20 mg PO DAILY docusate sodium 100 mg Capsule 100 mg PO BID ferrous sulfate 325 mg (65 mg iron) Tablet 325 mg PO DAILY fluticasone propion-salmeterol [Advair HFA] 230-21 mcg/actuation Hfa Aerosol Inhaler 2 puff INHALATION BID albuterol sulfate 2.5 mg /3 mL (0.083 %) Solution For Nebulization 2.5 mg inhalation Q4H PRN (Reason: Respiratory Distress) albuterol sulfate 90 mcg/actuation Hfa Aerosol Inhaler 2 puff INHALATION Q4-6H PRN (Reason: Respiratory Distress) Zepbound 2.5 mg/0.5 mL Pen Injector 2.5 mg SUBCUT FR@1000 Rx Instructions: for 4 weeks clonidine HCl 0.1 mg tablet 0.1 mg PO BID cetirizine 10 mg tablet 10 mg PO BEDTIME duloxetine 30 mg capsule,delayed release(DR/EC) 30 mg PO BEDTIME montelukast 10 mg tablet 10 mg PO BEDTIME metoprolol tartrate 50 mg tablet 50 mg PO BID Eliquis 5 mg tablet 5 mg PO BID losartan 100 mg tablet 100 mg PO DAILY ergocalciferol (vitamin D2) 1,250 mcg (50,000 unit) capsule 1,250 mcg PO FR@0900 furosemide 20 mg tablet 20 mg PO BID amlodipine 5 mg tablet 5 mg PO DAILY omeprazole 40 mg capsule,delayed release(DR/EC) 40 mg PO BID riboflavin (vitamin B2) 400 mg tablet 400 mg PO DAILY 30 Days Qty: 30 6RF Tab-A-Bing Multivitamin w-iron 15 mg iron- 400 mcg tablet 1 tab PO BEDTIME Discharge Orders: Discharge Order (Routine); Ordered 09/30/24 Ordered By: Faith Desir Activity on Discharge: As tolerated Stand Alone Forms: Patient Portal Discharge page Print Language: Maltese Care Plan Goals: see below Health Concerns: abdominal pain due to probable viral gastroenteritis symptoms could be also be due to zepbound - would discuss with prescribing provider Plan of Treatment: continue bland diet and gradually advance to regular diet call to schedule follow up with PCP as needed Assessment: see discharge summary
--- NOTE | 2024-09-30 14:34 | MHC.CM.PN ---
Per MD medically cleared for dc home self care. Transport via [facility].
== END 2024-09-30 14:50 | disposition home or self-care (01) | DRG 392 ==
LOC: HO.ED 08:58 → HO.EDOVER 13:42 → HO.S3 14:23
PROVIDERS: Hospitalist; Physician Assistant Medical; Admitting Provider Physician Assistant; Emergency Provider Emergency Medicine; PCP Student in an Organized Health Care Education/Training Program; Visit Provider Physician Assistant Medical
DX: A08.4 Viral intestinal infection, unspecified (principal); I48.0 Paroxysmal atrial fibrillation; G89.4 Chronic pain syndrome; I10 Essential (primary) hypertension; G47.33 Obstructive sleep apnea (adult) (pediatric); M15.9 Polyosteoarthritis, unspecified; E78.5 Hyperlipidemia, unspecified; Z20.822 Contact with and (suspected) exposure to COVID-19; Z86.73 Personal history of transient ischemic attack (TIA), and cerebral infarction without residual deficits; Z96.82 Presence of neurostimulator; Z79.01 Long term (current) use of anticoagulants; Z79.51 Long term (current) use of inhaled steroids; Z79.899 Other long term (current) drug therapy
CPT/HCPCS: 0241U; 36415; 70450; 74177; 80048; 80053; 81003; 82947; 83735; 84484; 85025; 93005; 94640; 94660; 99285; J1171; J2270; J2405; J2470; J2765; J3360; J7120; Q9967

== ENCOUNTER → 2024-09-27 08:27 | Outpatient (BNV) | payer MEDICARE, MEDICAID, SELFPAY | PROVIDERS: Admitting Provider Physician Assistant; Emergency Provider Emergency Medicine; PCP Student in an Organized Health Care Education/Training Program; Visit Provider Internal Medicine Cardiovascular Disease | DX: I45.10 Unspecified right bundle-branch block (principal); I44.4 Left anterior fascicular block | CPT/HCPCS: 93010 ==

== ENCOUNTER → 2024-09-27 08:27 | Outpatient (BNV) | payer MEDICARE, MEDICAID, SELFPAY | PROVIDERS: Emergency Provider Emergency Medicine; PCP Student in an Organized Health Care Education/Training Program; Visit Provider Radiology Diagnostic Radiology | DX: K76.0 Fatty (change of) liver, not elsewhere classified (principal); N20.0 Calculus of kidney; K57.30 Diverticulosis of large intestine without perforation or abscess without bleeding; R51.9 Headache, unspecified; Z79.01 Long term (current) use of anticoagulants | CPT/HCPCS: 70450; 74177 ==

== ENCOUNTER → 2024-09-27 13:31 | Outpatient (BNV) | payer MEDICARE, MEDICAID, SELFPAY | PROVIDERS: Admitting Provider Physician Assistant; Emergency Provider Emergency Medicine; PCP Student in an Organized Health Care Education/Training Program; Visit Provider Physician Assistant | DX: A08.4 Viral intestinal infection, unspecified (principal) | CPT/HCPCS: 99223; 99232; 99239 ==

== ENCOUNTER 2024-09-28 06:13 | Outpatient (REF) | payer MEDICARE, MEDICAID, SELFPAY | END 2024-09-28 06:14 | disposition home or self-care (01) | LOC: CF 06:13 | PROVIDERS: Visit Provider Anesthesiology | DX: Z13.89 Encounter for screening for other disorder (principal) ==

== ENCOUNTER 2024-11-09 06:27 | Outpatient (REF) | payer MEDICARE, MEDICAID, SELFPAY ==
--- NOTE | ~2024-11-09 | FL_ITS ---
EXAMINATION: FL GUIDANCE ONLY HISTORY: M47.816 - Spondylosis without myelopathy or radiculopathy, lumbar region COMPARISON: None available. TECHNIQUE: Fluoroscopy time: 0.8 minutes. Cumulative Dose: 25.2 mGy. DAP: 0.285 mGym2 Images: 7. FINDINGS: Multiple fluoroscopic spot films of the lumbar spine in the AP projection demonstrate needles and contrast material in the regions of the bilateral L3-4, L4-5, and L5-S1 facet joints. FL/FL guidance in treatment room IMPRESSION: Fluoroscopy during procedure. Please see procedure report for additional information. Electronically signed by: Apolinar Myers MD 11/09/2024 12:00 PM EDT
== END 2024-11-09 06:28 | disposition home or self-care (01) ==
LOC: CF 06:27
PROVIDERS: Visit Provider Anesthesiology
DX: M47.816 Spondylosis without myelopathy or radiculopathy, lumbar region (principal)
CPT/HCPCS: 64493; 64494; J2003; J2795; J3301; Q9967

== ENCOUNTER 2024-11-09 08:06 | Outpatient (AMB) | payer MEDICARE, MEDICAID, SELFPAY ==
--- OUTSIDE RECORDS SUMMARY | 2024-11-09 08:08 | XMS_ITS | Encounter Summary ---
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 Name Role Phone Davina Marie MD Primary Care Provider [phone] Encounter Details Date Type Department Care Team ([facility] Contact Info) Description 11/25/2022 Orders Only [facility] [address], [place] [phone] Davina Marie MD [address] [place] [address] Social History Tobacco Use Types Packs/Day Years [...] as of this encounter Plan of Treatment Upcoming Encounters Date Type Department Care Team ([facility] Contact Info) Description 12/29/2024 9:30 AM EDT Office Visit [facility] [address] [place] [address] Davina Marie MD [address] [place] [phone] documented as of this encounter Visit Diagnoses Not on filedocumented in this encounter Care Teams Forest Fire Warden Relationship Specialty Start Date End Date Davina Marie MD [address] [place] [phone] PCP - General Family Medicine 12/01/19 documented as of this encounter
[2024-11-09 08:26] VITALS: BP 126/76; PULSE 62; RESP 18; O2SAT 96
--- NOTE | 2024-11-09 08:26 | MHC.OFFVIS ---
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 Required: No Allergies bacitracin Allergy (Mild, Verified 11/09/24 08:27) Rash ibuprofen Allergy (Verified 11/09/24 08:27) Unknown lisinopril Allergy (Verified 11/09/24 08:27) Unknown aspirin Adverse Reaction (Mild, Verified 11/09/24 08:27) mild vaginal bleeding [facility] Medical History Arthritis Peptic ulcer GERD (gastroesophageal reflux disease) CVA (cerebral vascular accident) SOB (shortness of breath) Atrial fibrillation Seizure On beta christina at home On anticoagulant therapy SANDEE (obstructive sleep apnea) Morbid obesity with BMI of 45.0-49.9, adult Gout High cholesterol Hypertension COVID-19 Osteoarthritis of knees, bilateral History of gastric ulcer Left inguinal hernia (~2013) Lab test positive for detection of COVID-19 virus (~11/2019) Bleeding disorder Asthma Surgical History History of back surgery S/P partial hysterectomy (11/10/18) H/O umbilical hernia repair (07/25/06) Hx of endoscopy Family History Father Hx of diabetes insipidus Mother No problems noted. Social History Household Members: Family Housing: Condominium Are you a primary care management specialist to a significant other at home: No Do you presently have visiting nurse or other home services: No Alcohol intake: never Comment: counts correct Patient Tobacco Use Status: Never used Tobacco e-Cigarette/Vaping Use: Never Used Second Hand Smoke Exposure: No Advance Directives Date on File: 01/24/21 service: No Current occupational status: unemployed Current occupation: right handed Physical Exam Vital Signs: Last Vital Signs Pulse 62 11/09/24 08:26 Resp 18 11/09/24 08:26 BP 126/76 11/09/24 08:26 Pulse Ox 96 11/09/24 08:26 Oxygen Delivery Method Room Air 11/09/24 08:26 Assessment & Plan Assessment & Plan (1) Spondylosis of lumbar joint: Code(s): M47.816 - Spondylosis without myelopathy or radiculopathy, lumbar region Category: Medical Plan Therapeutic medial branch block L3,L4 dorsal ramus L5 bilateral.? ? ?Informed consent was explained to the patient. All questions were explained and? answered.? The patient was taken inside the operating room where she was positioned prone on the operating table. Time-out was performed delineating correct site, side, the nature of the procedure, patient's allergy, . All operating room staff was participating in OR time-out procedure. ? ? The lower back was prepped with ChloraPrep and draped with sterile towels.? C-arm was brought over the operating field and sq picture of L4-, L5 vertebra and S1 AREA were delineated on the screen.? Point of interest were delineated as confluence of superior articular process of L4 and L5 vertebra bilaterally with corresponding transverse processes as well as confluence of the sacral alae bilaterally with superior articular process of S1.? The projection of the point of interest to the skin were injected with the small amount of local anesthetic lidocaine 2% mixed with ropivacaine 0.5% 1-1 approcimately 1 cc.? After that 22 gauge 3.5 inch spinal needle was driven sequentially to the points of interest in tunnel vision fashion. After needles gently contacted the bone at the point of interests the needle was injected with small amount of the contrast.? The injection of the contrast did not demonstrate any intravascular or intrathecal spread of the contrast.? After that injection of the? ropivacaine 0.5%-1cc mixed with Kenalog was performed at each needle location.? Total dose of Kenalog was 80 mg. ?after that the needles were removed and Bandaids were applied. ? Upon completion of the injections? needle was? removed and sterile Band-Aids were applied.? The patient tolerated procedure very well. Orders: Orders FL guidance in treatment room Today M47.816 - Spondylosis without myelopathy or radiculopathy, lumbar region Coding Level of Care Code Procedure Only Diagnoses Spondylosis of lumbar joint M47.816
== END 2024-11-09 09:32 | disposition home or self-care (01) ==
LOC: HO.PMCPRC 08:06
PROVIDERS: PCP Student in an Organized Health Care Education/Training Program; Visit Provider Anesthesiology
DX: M47.816 Spondylosis without myelopathy or radiculopathy, lumbar region (principal)
CPT/HCPCS: 64493; 64494

== ENCOUNTER 2024-11-26 13:17 | Outpatient (AMB) | payer MEDICAID, SELFPAY ==
--- NOTE | 2024-11-26 13:18 | A.OFFVIS_ITS ---
Intake Visit Reasons: F/U [facility] # [phone] Intake Note: Patient presents 3 month follow up for migraines/seizure Soaping Department Supervisor Required: No Accompanied by: Self / Same As Patient Allergies bacitracin Allergy (Mild, Verified 11/26/24 13:18) Rash ibuprofen Allergy (Verified 11/26/24 13:18) Unknown lisinopril Allergy (Verified 11/26/24 13:18) Unknown aspirin Adverse Reaction (Mild, Verified 11/26/24 13:18) mild vaginal bleeding HPI Comments Details: 54-yr-old female presents for f/u visit for seizures and migraine. Pt is accompanied by her dtr, Bruce Snell. 07/02/24, CT/CT head/brain wo IV con, CT/CT head/brain wo IV con, IMPRESSION: No acute intracranial abnormality. She had an [facility] [place] [place] [facility] evaluation for gastroenteritis in September 2024- she has recovered from this, however, abdominal imaging showed nephrolithiasis. She is having an every day severe migraine (30/30 migraine headache days in the last month). The migraine continues to be her typical migraine. Severe left-sided temporal headache. She notes in addition to the usual usual associated symptoms she endorsed at the last visit, she also feels numbness and tenderness along the u pper bilateral frontal region, especially when pressing the area when her headaches are worse Tylenol is not helping. She did not receive Ubrelvy, although this was filled by her pharmacy. She never received Emgality d/t was again denied by insurance. Typical headache characteristics: Prodrome symptoms: unsure Aura: unsure Pain, Location, quality, characteristics: Severe, left sided temporal pulsating pain a/w swelling, photophobia, phonophobia, osmophobia, allodynia, nausea, vomiting- sometimes, internal spinning dizziness, lightheadedness, fatigue, cognitive difficulties, activity intolerance, upper frontal numbness, LUE tingling, red eye- likes veins have popped, watery eye, facial warmth. Postdrome: drained She states she is having seizures when she goes to the stores- she will feel it come on, her eyes will roll back, and sometimes she can can shake it off . This lasts a few seconds. She is having a big seizure approx once a week- those occur in a pattern of 3- 4 back to back attacks, her dtr tries to encourage her to breathe but pt is not responding to her. When episode ends, she looks very confused. Sometimes both of these symptoms can be triggered by stress. She is compliant with her CPAP. Pt's meds are dispensed by her dtr from a prefilled med box. [facility] Medical History Arthritis Peptic ulcer GERD (gastroesophageal reflux disease) CVA (cerebral vascular accident) SOB (shortness of breath) Atrial fibrillation Seizure On beta christina at home On anticoagulant therapy SANDEE (obstructive sleep apnea) Morbid obesity with BMI of 45.0-49.9, adult Gout High cholesterol Hypertension COVID-19 Osteoarthritis of knees, bilateral History of gastric ulcer Left inguinal hernia (~2013) Lab test positive for detection of COVID-19 virus (~11/2019) Bleeding disorder Asthma Surgical History History of back surgery S/P partial hysterectomy (11/10/18) H/O umbilical hernia repair (07/25/06) Hx of endoscopy Family History Father Hx of diabetes insipidus Mother No problems noted. Social History Household Members: Family Housing: Condominium Are you a primary critical care nurse specialist to a significant other at home: No Do you presently have visiting nurse or other home services: No Alcohol intake: never Comment: counts correct Patient Tobacco Use Status: Never used Tobacco e-Cigarette/Vaping Use: Never Used Second Hand Smoke Exposure: No Advance Directives Date on File: 01/24/21 service: No Current occupational status: unemployed Current occupation: right handed Telehealth Telehealth Telehealth Platform: [facility] Location of provider rendering services: practice address Location of patient: address on file Patient Identification confirmed using: Name, : Yes Telehealth method: video Patient verbally consented to treatment: Yes Patient verbally consented to billing insurance company: Yes Patient informed of any privacy concerns related to visit: Yes Minutes spent on Phone/Video with Pt.: 30 Assessment & Plan Assessment & Plan (1) Seizure: Code(s): R56.9 - Unspecified convulsions Category: Medical (2) Worsening headaches: Code(s): R51.9 - Headache, unspecified Category: Medical (3) Paresthesia: Code(s): R20.2 - Paresthesia of skin Category: Medical (4) Migraine with aura: Comment: ? LUE tingling is migraine sensory aura Code(s): G43.109 - Migraine with aura, not intractable, without status migrainosus Category: Medical Qualifiers: Status migrainosus presence: with status migrainosus Intractability: intractable Qualified Code(s): G43.111 - Migraine with aura, intractable, with status migrainosus Plan For convulsions: Reviewed interval workup: * Head CT w/o- unremarkable Previous workup: * EEG- mild slowing- no evidence of epileptic activity. Current plan: * Patient advised to undergo 72 hour ambulatory EEG-to further assess epileptic episodes * Continue gabapentin 300 mg twice a day * Continue to use CPAP nightly > 4 hrs. Future considerations: * VEEG, referral to [facility] [place] [facility] clinic. For overall headache management: * Discussed importance of good self-care, including but not limited to maintaining a healthy diet, adequate fluid intake, adequate sleep, and engaging in regular physical activity. * Track headaches. * Information previously shared on nonpharmacological treatment interventions including strategies to minimize photophobia and phonophobia. For acute migraine tx: * Continue Tylenol 650-a 1000 mg every 4-6 hours as needed at onset of migraine headache. * Again trial Ubrogepant, there is an active Ubrelvy prior authorization through 12/03/2024- patient advised to pick this up prior to 12/03/2024 * Instructions: Ubrogepant (Ubrelvy) 100mg tab, 1/2 - 1 tab (50-100mg) at onset of headache, may repeat in 2 hours. Max of 2 tabs (200mg) per 24 hours. May adjunct with OTC Tylenol 650mg q 4 hours, Ibuprofen 600mg q 6 hours, or Naproxen 440mg q 12 hrs prn. Do not take w/ Butalbital (Fioricet or Fiorinal). Potential adverse effects, include but are not limited to fatigue, nausea, dry mouth, constipation * Previous acute tx trials- none other * Tx contraindications- all Triptans and DHE d/t CAD. NSAIDs d/t Eliquis use and ASA allergy. For migraine prevention tx: * Continue Riboflavin 400mg daily in am * Continue Magnesium 400mg daily at bedtime. * Continue Topiramate 50mg in am and 100mg at bedtime (note, we are continuing this for now as patient continues to have a daily migraine) * Start vitamin B6 50 mg twice a day, as topiramate can increase the risk for kidney stones (nephrolithiasis). We will check a baseline vitamin B6 level. * Continue metoprolol 50 mg twice a day- order primarily for hypertension * Discontinue Emgality order-was again deny by a patient's insurance * Start Aimovig 140mg/ml autoinjector, 1ml (140mg) subcutaneous injection once a month. Potential adverse effects of Aimovig include but are not limited to injection site reactions, cramps, constipation, increase in blood pressure. Patient's daughter believes she will be able to self administer the Aimovig once approved and received. Advised that if they have any concerns regarding administering Aimovig, they can schedule an RN Aimovig injection training appointment with the front desk person. * Previous prevention tx trials- none other * Tx contraindications- would not increase metoprolol or add alternate beta- christina d/t symptomatic asthma. * Future considerations: Weaning patient off of topiramate due to recent evidence of nephrolithiasis once patient has started Aimovig. f/u upon review of above and in clinic in 3-6 months or sooner prn. Orders: Orders EEG ambulatory Today G43.109 - Migraine with aura, not intractable, without status migrainosus, R56.9 - Unspecified convulsions Vitamin B6 Today D64.9 - Anemia, unspecified Medications: New pyridoxine (vitamin B6) 50 mg PO BID 30 days 60 tabs 3RF erenumab-aooe (Aimovig Autoinjector) 140 mg subcut ONCE 30 days 1 mL 6RF Changed From riboflavin (vitamin B2) 400 mg PO DAILY 30 days 30 tabs 6RF To riboflavin (vitamin B2) 400 mg PO DAILY 90 days 90 tabs 3RF From ubrogepant (Ubrelvy) take at onset of migraine, may repeat in 2hrs (may take w/ Tylenol) 50 - 100 mg (0.5 - 1 x 100 mg) PO ONCE PRN 16 tabs 6RF migraine headache 30 days To ubrogepant (Ubrelvy) take at onset of migraine, may repeat in 2hrs (may take w/ Tylenol). PA approved through 12/03/24. Partial fill upon pt request. 50 - 100 mg (0.5 - 1 x 100 mg) PO ONCE 30 days PRN 16 tabs 6RF migraine headache From magnesium oxide may hold for loose stools 400 mg PO BEDTIME 30 tabs 6RF 30 days To magnesium oxide may hold for loose stools 400 mg PO BEDTIME 90 days 90 tabs 3RF Coding Level of Care Code Tele Est Pt Level 4 (14160) Complex EM visit Add On G2211 Diagnoses Seizure R56.9 Worsening headaches R51.9 Paresthesia R20.2 Intractable migraine with aura with status migrainosus G43.111 Status migrainosus presence: with status migrainosus Intractability: intractable
--- OUTSIDE RECORDS SUMMARY | 2024-11-26 13:37 | XMS_ITS | Encounter Summary ---
Author Organization [employer] Address [address] [place] [address] Care Team Providers Care Casing Crew Pusher Name Role Phone Davina Marie MD Primary Care Provider [phone] Encounter Details Date Type Department Care Team ([facility] Contact Info) Description 11/25/2022 Orders Only [facility] [address] [place], [place] [phone] Davina Marie MD [address] [place] [address] Social History Tobacco Use Types Packs/Day Years [...] Upcoming Encounters Date Type Department Care Team ([facility] Contact Info) Description 12/29/2024 9:30 AM EDT Office Visit [facility] [address] [place] [address] Davina Marie MD [address] [place] [phone] documented as of this encounter Visit Diagnoses Not on filedocumented in this encounter Care Teams Casing Crew Pusher Relationship Specialty Start Date End Date Davina Marie MD [address] [place] [phone] PCP - General Family Medicine 12/01/19 documented as of this encounter
== END 2024-11-26 14:46 | disposition home or self-care (01) ==
LOC: HO.HSMS 13:17
PROVIDERS: PCP Student in an Organized Health Care Education/Training Program; Visit Provider Nurse Practitioner Family
DX: R56.9 Unspecified convulsions (principal); R51.9 Headache, unspecified; R20.2 Paresthesia of skin; G43.111 Migraine with aura, intractable, with status migrainosus
CPT/HCPCS: 99214

== ENCOUNTER → 2024-11-26 13:17 | Outpatient (BNVA) | payer MEDICAID, SELFPAY | PROVIDERS: PCP Student in an Organized Health Care Education/Training Program; Visit Provider Nurse Practitioner Family ==

== ENCOUNTER 2024-12-16 09:00 | Outpatient (AMB) | payer MEDICAID, SELFPAY ==
[2024-12-16 09:07] VITALS: BP 143/74; PULSE 64; RESP 20; O2SAT 100; BMI 46.1
--- NOTE | 2024-12-16 09:07 | A.OFFVIS_ITS ---
Vital Signs 12/16/24 09:07 Height 5 ft 9 in Weight 312 lb BMI 46.1 BP 143/74 H Blood Pressure Location Lt brachial Position Sitting Respiration 20 Pulse 64 Pulse Source Pulse Oximeter Pulse Oximetry (%) 100 Oxygen Delivery Method Room Air Intake Visit Reasons: BILATERAL THERAPEUTIC L3, L4, DRL5 MBB Property And Equipment Clerk Required: No Principal Archaeologist: Principal Archaeologist Present Accompanied by: willian hMagan Allergies bacitracin Allergy (Mild, Verified 12/16/24 09:08) Rash ibuprofen Allergy (Verified 12/16/24 09:08) Unknown lisinopril Allergy (Verified 12/16/24 09:08) Unknown aspirin Adverse Reaction (Mild, Verified 12/16/24 09:08) mild vaginal bleeding HPI Comments Details: Tamanna is back in my office with complains on pain in bilateral lower ribs as well as bilateral knees. She requested me to perform bilateral knee injection with Kenalog. She received those injections in the past from me. We usually did not stop her Eliquis. I warned the patient that not stopping Eliquis have a risk of bleeding, formation of hematoma, formation of hemarthrosis, possibility of a septic joint, need for septic joint surgery, the patient reported today that her pain in the knees 10/10 and she can not wait another day until terminating Eliquis. She insisted on forming injections today. The risks and benefits are explained informed consent was signed. Patient reports severe difficulty with walking because of her pain and that is why we performed the injection as below. She also requested me to send her for physical therapy for ribcage pain. I will do as she requested. In May of 2024 she received bilateral therapeutic medial branch block injection with very good results. She still admits that pain in the lower back is tolerable. Prior: History of chronic back pain. evere pain in bilateral lower back as well as severe pain in thoracic back slightly above the level of the scapulas approximately in bilateral rhomboid muscles projection. She states that both of the spinal cord stimulators do not cover her pain. Previously I was entertaining an idea that the pain of the patient is secondary to deviation of the spinal cord stimulator epidural leads. However today it appears to be that pain is not radicular and rather local in nature. She also states that the pain is not covered by spinal cord stimulator which would be the case if pain would be radicular. The spinal cord stimulator is positioned in proper location in the posterior cervical spine in the projection of C2-C3 C3-C4 vertebra and there are no observable deviation of the epidural leads on the the anterior posterior view in the thoracic or cervical spine. She requests me to perform therapeutic medial branch blocks for her lower lumbar pain as well as for her thoracic spine pain. She stated that therapeutic blocks which were performed for her in the past were more or less helpful for her. I explained to her risk of the steroid medications. I explained to her risks of diabetes and osteoporosis. Nevertheless the patient insisted on performing those injections. I told her to turn the spinal cord stimulator lumbar off before she would go for the L3-L4 dorsal ramus L5 bilateral therapeutic medial branch block and the same should be done for cervical spinal cord stimulator when she will go for thoracic medial branch blocks. I also will contact [facility] and we will request there opinion on whether [facility] would be acceptable way of treating Tamanna's pain in presence of spinal cord stimulators in her spine. Prior: bilateral acromioclavicular joint injection which was performed on 06/03/2023.. She reports overall 50% of pain improvement in the shoulders. She reports slightly improved mobility of the left upper extremity. However he continues to complain on swelling and pain in bilateral upper shoulders. She is interested in neuromodulation. She is asking me whether she can try the same stimulation in her neck to help her pain in his shoulders as she did for her back. Complains on cervical pain with radiation to the left upper extremity or left side of the thoracic back and even down to the left loin. She also reports associated weakness in the left upper extremity and awkwardness of left upper extremity. She is a subject of multiple interventional procedures. She recently had implantation of spinal cord stimulator to treat her lower back pain. She still reports 80% of pain improvement on spinal cord stimulator. On background of improved lower back pain the thoracic and cervical pain comes to foreground. She was a subject of x-ray of the cervical spine results of which dictated as below. [facility] Medical History Arthritis Peptic ulcer GERD (gastroesophageal reflux disease) CVA (cerebral vascular accident) SOB (shortness of breath) Atrial fibrillation Seizure On beta christina at home On anticoagulant therapy SANDEE (obstructive sleep apnea) Morbid obesity with BMI of 45.0-49.9, adult Gout High cholesterol Hypertension COVID-19 Osteoarthritis of knees, bilateral History of gastric ulcer Left inguinal hernia (~2013) Lab test positive for detection of COVID-19 virus (~11/2019) Bleeding disorder Asthma Surgical History History of back surgery S/P partial hysterectomy (11/10/18) H/O umbilical hernia repair (07/25/06) Hx of endoscopy Family History Father Hx of diabetes insipidus Mother No problems noted. Social History Household Members: [facility] Are you a primary manager long term care to a significant other at home: No Do you presently have visiting nurse or other home services: No Alcohol intake: never Comment: counts correct Patient Tobacco Use Status: Never used Tobacco e-Cigarette/Vaping Use: Never Used Second Hand Smoke Exposure: No Advance Directives Date on File: 01/24/21 service: No Current occupational status: unemployed Current occupation: right handed Review of Systems Const All systems reviewed & are unremarkable except as noted in HPI and below Physical Exam Vital Signs: Last Vital Signs Pulse 64 12/16/24 09:07 Resp 20 12/16/24 09:07 BP 143/74 H 12/16/24 09:07 Pulse Ox 100 12/16/24 09:07 Oxygen Delivery Method Room Air 12/16/24 09:07 BMI result Body Mass Index 46.1 Const General: no acute distress and alert Nutritional Appearance: not obese Orientation/consciousness: Other orientation findings ( oriented) HEENT Head: Yes atraumatic Eyes General: appearance normal, both eyes and all related structures Sclerae: sclerae normal EOM: EOMs intact bilaterally Neck Other: There is tenderness on palpation in the projection of the rhomboid minor and rhomboid major muscle bilaterally. Neck: No full ROM Resp Effort & Inspection: normal respiratory effort and no use of accessory muscles Back/Spine/Pelvis Other: There is tenderness on palpation in the projection of the lower back paraspinal spinal regions. Loading test is positive bilaterally. Valsalva is negative for pain increase. Brad test is negative bilaterally. Flexing backwards aggravates pain more than flexing forward. Skin General skin exam: other ( warm) Extrem General: No clubbing, No cyanosis and No edema Psych Appearance: grossly normal Mental Status: mental status grossly normal Speech and movement: Normal speech and movement present Affect: normal affect Attitude: cooperative Thought process: Normal thought process present Thought content: Normal thought content present Insight: Good insight present (Psych) Judgement: Good judgement present (Psych) Office Procedures AMB Joint Injection/Aspiration Joint Injection/Aspiration Primary Site: right knee Secondary Site: left knee Prep: injection warnings given Injected: Kenalog Approach Used: anterolateral Procedure: The patient tolerated the procedure well Coding 01387 - Bilateral Large Joint Procedure code (CPT) selection complete Office Meds Kenalog 40 mg/mL suspension for injection Performing Provider: Sukhi Soriano MD Performing Location: [facility] [place] [facility] Administered by: Sukhi Soriano MD on 12/16/24 10:10 Dose Route Admin Location Dispensed Lot Number Expiration Date [facility] Ventilator Specialist 40 mg intra-articular 1 mL [id number] 05/15/26 40 mg intra-articular 1 mL [id number] 12/16/24 [place], Total Dispensed Waste 2 mL 0 % Assessment & Plan Assessment & Plan (1) Bilateral knee pain: Code(s): M25.561 - Pain in right knee; M25.562 - Pain in left knee Category: Medical Plan: After obtaining informed consent the patient was positioned sitting on the examination table. Anterior lateral surfaces of bilateral knees were prepped with ChloraPrep and sterilely obtained 5 cc of ropivacaine 0.5% mixed with Kenalog 40 mg was injected into each knee using 30 gauge 1.5 in needle. Minimal bleeding was observed on the right knee and no bleeding was observed on the left knee. Sterile Band-Aids were applied. The patient tolerated the procedure very well. (2) Spondylosis of lumbar joint: Code(s): M47.816 - Spondylosis without myelopathy or radiculopathy, lumbar region Category: Medical (3) Spondylosis, thoracic, without myelopathy: Code(s): M47.814 - Spondylosis without myelopathy or radiculopathy, thoracic region Category: Medical (4) Spinal cord stimulator status: Code(s): Z96.89 - Presence of other specified functional implants Category: Medical (5) Arthritis of both acromioclavicular joints: Code(s): M19.011 - Primary osteoarthritis, right shoulder; M19.012 - Primary osteoarthritis, left shoulder Category: Medical (6) DDD (degenerative disc disease), cervical: Code(s): M50.30 - Other cervical disc degeneration, unspecified cervical region Category: Medical (7) Cervical spondylosis: Code(s): M47.812 - Spondylosis without myelopathy or radiculopathy, cervical region Category: Medical (8) Status post insertion of spinal cord stimulator: Code(s): Z96.89 - Presence of other specified functional implants Category: Surgical (9) Painful rib: Code(s): R07.81 - Pleurodynia Category: Medical Plan Good results of therapeutic medial branch blocks L3, L4, dorsal ramus L5 bilateral. Continues to report tolerable pain in lower back. I will send her for physical therapy for the pain in the ribcage. I also injected bilateral knees and she insisted. She refused to stop Eliquis, she stated that she received multiple knee injections while on Eliquis. Risks and benefits explained including risks of hemorrhage arthrosis and septic knee. Also risks of the steroid injections were explained to the patient. The procedure see as above. Orders: Orders AMB Joint Injection/Aspiration Today M25.561 - Pain in right knee, M25.562 - Pain in left knee PT Evaluation and Treatment Today R07.81 - Pleurodynia Coding Level of Care Code Est Pt Level 3 (99741) Procedure Only Diagnoses Bilateral knee pain M25.561; M25.562 Spondylosis of lumbar joint M47.816 Spondylosis, thoracic, without myelopathy M47.814 Spinal cord stimulator status Z96.89 Arthritis of both acromioclavicular joints M19.011; M19.012 DDD (degenerative disc disease), cervical M50.30 Cervical spondylosis M47.812 Status post insertion of spinal cord stimulator Z96.89 Painful rib R07.81 CPT Codes Coding - 38025 - Bilateral Large Joint: 32940 - Bilateral Large Joint ([id number])
--- OUTSIDE RECORDS SUMMARY | 2024-12-16 09:14 | XMS_ITS | Clinical Summary ---
Author Organization [facility] it Address [address] [place] [address] Care Team Providers Care Evp Head Of [employer] Experience Strategy Name Role Phone Davina Marie MD Primary Care Provider [phone] Surgical History Surgery Date Site/Laterality Comments OTHER SURGICAL HISTORY PROCEDURE: IA ANES HRNA REPAIR UPR ABD TABDL RPR DIPHRG HRNA SALPINGOOPHORECTOMY 10/2018 Left PROCEDURE: IA LAPAROSCOPY W/RMVL ADNEXAL STRUCTURES; COMMENT: ovarian torsion OTHER SURGICAL HISTORY 2016 PROCEDURE: IA DILATION & CURETTAGE DX&/THER NONOBSTETRIC Medical History [...] - 2023-2 5 season) 2024 Influenza Vaccine (#1) 2025 HIB Vaccines Aged Out No longer [...] RESULTING AGENCY - 09/11/2020 4:30 PM EDT [id number] THINPREP PAP, IMAGED: NEGATIVE FOR SQUAMOUS INTRAEPITHELIAL LESION AND MALIGNANCY . ABUNDANT RED BLOOD CELLS ARE PRESENT. AREN MORAN(ASCP) (CASE ELECTRONICALLY SIGNED 09 11 2020) RESULT OF APTIMA HIGH RISK HPV ASSAY: HIGH RISK HPV: NEGATIVE (SEROTYPES 16,18,31,33,35,39,45,51,52,56,58,59,66,68) COMPLETED ON 2020-09-11 ADEQUACY: SATISFACTORY ENDOCERVICAL/TRANSFORMATION ZONE COMPONENT PRESENT. SOURCE: THINPREP PAP HPV ANY DX: REFLEX 16 AND 18, CERVICAL, IMAGED CLINICAL INFORMATION: HPV ANY DIAGNOSIS. PAP HX NONE, LMP 08/28/20 [Z12.4, Z12.31] [facility] CYTOLOGY ORDERABLES Final Result HISTORICAL TESTING LAB RESULTING AGENCY from Last 3 Months or Most Recently Relevant to Health Maintenance Advance Directives Documents on File Type Date Recorded Patient Fire Observer Expl anation Health Care Decision (hx) 12/14/2020 [...] (hx) 12/14/2020 AD SCHUMACHER DIRECTIVE Care Teams Evp Head [employer] Experience Strategy Relationship Specialty Start Date End Date Davina Marie MD [address] [place] [id number] PCP - General 06/27/21
--- OUTSIDE RECORDS SUMMARY | 2024-12-16 09:14 | XMS_ITS | Encounter Summary ---
Author Organization [employer] Address [address] [place] [address] Care Team Providers Care Boilermaker Name Role Phone Davina Marie MD Primary Care Provider [phone] Encounter Details Date Type Department Care Team ([facility] Contact Info) Description 11/25/2022 Orders Only [facility] [address] [place], [place] [phone] Davina Marie MD [address] [place] [address] Social History Tobacco Use Types Packs/Day Years [...] Upcoming Encounters Date Type Department Care Team ([facility] Contact Info) Description 01/07/2025 10:45 AM EDT Office Visit [facility] [address] [place] [address] Davina Marie MD [address] [place] [phone] documented as of this encounter Visit Diagnoses Not on filedocumented in this encounter Care Teams Boilermaker Relationship Specialty Start Date End Date Davina Marie MD [address] [place] [phone] PCP - General Family Medicine 12/01/19 documented as of this encounter
--- OUTSIDE RECORDS SUMMARY | 2024-12-16 09:14 | XMS_ITS | Encounter Summary ---
Author Organization [facility] Address [address] [place] [address] Care Team Providers Care Golf Course Mechanic Name Role Phone Bradley Juan MD Unavailable Yusra Barton APRN Primary Care Provider [phone] Encounter Details Date Type Department Care Team (Late st Contact Info) Description 09/15/2018 Scanned Document [facility] CAD MANAGER [address] [place] [phone] Provider, MD [facility] [address] [place] [address] Social History Tobacco Use Types Packs/Day Years Used Date Smoking Tobacco: Never Smokeless Tobacco: Never Alcohol Use Standard Drinks/Week Comments No 0 (1 standard drink = 0.6 oz pur e alcohol) Comments No Sex and Gender Information Value Date Recorded Sex Assigned at Not on file Legal Sex Female 3:33 PM EDT Gender Identity Not on file Sexual Orientation Not on file documented as of this encounter Plan of Treatment Not on file documented as of this encounter Visit Diagnoses Not on filedocumented in this encounter Care Teams Golf Course Mechanic Relationship Specialty Start Date End Date Yusra Barton APRN [address] [place] [id number] PCP - General Family Medicine 05/25/18 Bradley Juan MD [address] [place] [address] Physician Cardiovascular Disease 07/08/17 documented as of this encounter
--- OUTSIDE RECORDS SUMMARY | 2024-12-16 09:14 | XMS_ITS | Clinical Summary ---
Author Organization [facility] Address [address] [place] [address] Care Team Providers Care Mixer Operator Tablets Name Role Phone Unavailable Primary Care Provider [...] Migraine 08/13/2018 Overview (08/12/2019): Overview Note: Migraine #[id number]# EXT_ID: [id number] Low back pain 10/29/2017 Overview (08/12/2019): Overview Note: Low back pain #[id number]# EXT_ID: [id number] Restless leg syndrome 06/12/2017 Overview (08/12/2019): Overview Note: Restless leg syndrome #112809# EXT_ID: [id number] Osteoarthritis of knees, bilateral 06/12/2017 Overview (08/12/2019): Overview Note: Osteoarthritis of knees, bilat #971697# EXT_ID: [id number] Knee arthropathy 06/12/2017 Overview (08/12/2019): Overview Note: Knee arthropathy #[id number]# EXT_ID: [id number] Hypertension 01/23/2017 Overview (08/12/2019): Overview Note: Hypertension #[id number]# EXT_ID: [id number] Immunizations Immunization Administration Dates Next Due INFLUENZA, [...] 57 09/23/2018 6:12 PM EDT Temperature 37.3 C ([id number] F) 09/23/2018 6:12 PM EDT Respiratory Rate 18 09/23/2018 6:12 PM EDT Oxygen Saturation 97% 08/18/2018 6:39 PM EST Inhaled Oxygen Concentration - - Weight 104.8 kg (231 lb) 09/23/2018 6:12 PM EDT Height 170.2 cm (5' 7 ) 09/23/2018 6:12 PM EDT Body Mass Index 36.18 09/23/2018 6:12 PM EDT Plan of Treatment Not on file
== END 2024-12-16 09:41 | disposition home or self-care (01) ==
LOC: HO.PMC 09:01
PROVIDERS: PCP Student in an Organized Health Care Education/Training Program; Visit Provider Anesthesiology
DX: M47.816 Spondylosis without myelopathy or radiculopathy, lumbar region (principal); M47.814 Spondylosis without myelopathy or radiculopathy, thoracic region; M25.561 Pain in right knee; M25.562 Pain in left knee; Z96.89 Presence of other specified functional implants; M19.011 Primary osteoarthritis, right shoulder; M19.012 Primary osteoarthritis, left shoulder; M50.30 Other cervical disc degeneration, unspecified cervical region; M47.812 Spondylosis without myelopathy or radiculopathy, cervical region; R07.81 Pleurodynia
CPT/HCPCS: 20610; 99213

== ENCOUNTER → 2024-12-16 09:00 | Outpatient (BNVA) | payer MEDICAID, SELFPAY | PROVIDERS: PCP Student in an Organized Health Care Education/Training Program; Visit Provider Anesthesiology | DX: M25.561 Pain in right knee (principal); M25.562 Pain in left knee; M47.816 Spondylosis without myelopathy or radiculopathy, lumbar region; M47.814 Spondylosis without myelopathy or radiculopathy, thoracic region; M19.011 Primary osteoarthritis, right shoulder; M19.012 Primary osteoarthritis, left shoulder; M50.30 Other cervical disc degeneration, unspecified cervical region; M47.812 Spondylosis without myelopathy or radiculopathy, cervical region; Z96.89 Presence of other specified functional implants; R07.81 Pleurodynia | CPT/HCPCS: 20610; 99212; J3300 ==

== ENCOUNTER 2024-12-23 17:08 | Emergency (ER) | payer MEDICARE, MEDICAID, SELFPAY ==
--- NOTE | ~2024-12-23 | XR_ITS ---
CLINICAL HISTORY: CP Chest Radiographs, 2 views Comparison: 07/04/23 Findings: No cardiomegaly. Normal mediastinal contours. No pneumothorax. No opacity. No pleural effusion. Normal upper abdomen. No acute fracture. Nerve stimulators. Impression: No acute findings. This document has been electronically signed by: Heather Ambriz MD on 12/23/2024 18:37:57
--- NOTE | ~2024-12-23 | CT_ITS ---
CLINICAL HISTORY: headache CT head without contrast Comparison: 09/27/24 Findings: No acute hemorrhage. No extra-axial fluid collection. No hydrocephalus, mass-effect or herniation. Yarbrough-white differentiation is maintained. White matter is within normal limits for age. No acute orbital pathology. No acute soft tissue abnormality. No fracture. The visualized paranasal sinuses are predominantly clear. The mastoid air cells are clear. Impression: No acute findings. This document has been electronically signed by: Heather Ambriz MD on 12/23/2024 18:42:21
[2024-12-23 17:36] VITALS: BP 144/92; PULSE 85; RESP 16; TEMP 36.3; O2SAT 96; BMI 46.8
--- NOTE | 2024-12-23 17:37 | ED.GENADULT ---
HPI - General Adult General Chief complaint: Headache Stated complaint: lois rib pain Time Seen by Provider: 12/23/24 20:10 Source: patient Limitations: no limitations History of Present Illness ED Provider: Meenu Mcdonnell PA-C HPI narrative: 54-year-old female with a history of asthma, atrial fibrillation on apixiban, CVA, neuropathy, degenerative disc disease, cervical positioned spinal cord stimulator, HTN, HLD, seizures, SANDEE on CPAP, migraines, anemia, chronic pain syndrome, GERD, presents with ongoing headache x2 weeks. Patient states her headache increased in severity, it is generalized at this time. Associated neck stiffness. She states she typically develops neck pain with her headaches. Associated phonophobia, photophobia, dizziness, nausea. Denies fever, recent illness/viral syndrome. Related Data Home Medications ?Medication ?Instructions ?Recorded ?Confirmed cetirizine 10 mg tablet 10 mg PO BEDTIME 04/27/20 09/27/24 duloxetine 30 mg capsule,delayed 30 mg PO BEDTIME 04/27/20 09/27/24 release metoprolol tartrate 50 mg tablet 50 mg PO BID 04/27/20 09/27/24 montelukast 10 mg tablet 10 mg PO BEDTIME 04/27/20 09/27/24 clonidine HCl 0.1 mg tablet 0.1 mg PO BID 06/05/20 09/27/24 apixaban 5 mg tablet (Eliquis) 5 mg PO BID 06/28/20 09/27/24 losartan 100 mg tablet 100 mg PO DAILY 06/28/20 09/27/24 furosemide 20 mg tablet 20 mg PO BID 12/25/21 09/27/24 ergocalciferol (vitamin D2) 1,250 1,250 mcg PO FR@0900 01/08/22 09/27/24 mcg (50,000 unit) capsule amlodipine 5 mg tablet 5 mg PO DAILY 09/24/22 09/27/24 ascorbic acid (vitamin C) 500 mg 500 mg PO DAILY 10/06/22 09/27/24 capsule,extended release omeprazole 40 mg capsule,delayed 40 mg PO BID 01/09/23 09/27/24 release cyanocobalamin (vitamin B-12) 500 500 mcg PO DAILY 12/16/23 09/27/24 mcg tablet (Vitamin B-12) rosuvastatin 20 mg tablet 20 mg PO DAILY 12/16/23 09/27/24 multivitamin-iron sulfate 15 1 tab PO BEDTIME 04/15/24 09/27/24 mg-folic acid 400 mcg tablet (Tab-A-Bing Multivitamin w-iron) albuterol sulfate 2.5 mg/3 mL 2.5 mg inhalation Q4H PRN 09/27/24 09/27/24 (0.083 %) solution for nebulization Respiratory Distress albuterol sulfate 90 mcg/actuation 2 puff inhalation Q4-6H PRN 09/27/24 09/27/24 aerosol inhaler Respiratory Distress docusate sodium 100 mg capsule 100 mg PO BID 09/27/24 09/27/24 ferrous sulfate 325 mg (65 mg 325 mg PO DAILY 09/27/24 09/27/24 iron) tablet fluticasone propionate 230 2 puff inhalation BID 09/27/24 09/27/24 mcg-salmeterol 21 mcg/actuation HFA inhaler (Advair HFA) tirzepatide (weight loss) 2.5 2.5 mg subcut FR@1000 09/27/24 09/27/24 mg/0.5 mL subcutaneous pen injector (Zepbound) Previous Rx's ?Medication ?Instructions ?Recorded naloxone 4 mg/actuation nasal spray 4 mg intranasal Q2M PRN opioid 12/19/23 overdose 1 day #2 ea topiramate 100 mg tablet 100 mg PO BEDTIME 30 days #30 tabs 09/10/24 topiramate 25 mg tablet 50 mg (2 x 25 mg) PO DAILY 30 days 09/27/24 #60 tabs gabapentin 300 mg capsule 300 mg PO BID 30 days #60 caps 10/11/24 magnesium oxide 400 mg (241.3 mg 400 mg PO BEDTIME 90 days #90 tabs 11/26/24 magnesium) tablet pyridoxine (vitamin B6) 50 mg 50 mg PO BID 30 days #60 tabs 11/26/24 tablet riboflavin (vitamin B2) 400 mg 400 mg PO DAILY 90 days #90 tabs 11/26/24 tablet ubrogepant 100 mg tablet (Ubrelvy) 50 - 100 mg (0.5 - 1 x 100 mg) PO 11/26/24 ONCE PRN migraine headache 30 days #16 tabs erenumab-aooe 140 mg/mL 140 mg subcut Q30D 30 days #1 mL 12/03/24 subcutaneous auto-injector (Aimovig Autoinjector) Allergies Allergy/AdvReac Type Severity Reaction Status Date / Time bacitracin Allergy Mild Rash Verified 12/23/24 17:42 ibuprofen Allergy Unknown Verified 12/23/24 17:42 lisinopril Allergy Unknown Verified 12/23/24 17:42 aspirin AdvReac Mild mild Verified 12/23/24 17:42 vaginal bleeding Review of Systems Review of Systems: Yes all other systems are reviewed and are negative Constitutional: Constitutional: Denies fatigue, Denies fever(s) and Reports headache(s) Eyes: Eyes: Reports photophobia ENT: Reports dizziness, Reports headache(s), Denies nasal congestion, Denies nasal discharge and Reports neck pain Cardiovascular: Cardiovascular: Denies chest pain and Denies dyspnea Respiratory: Respiratory: Denies dyspnea Gastrointestinal: Gastrointestinal: Denies abdominal pain, Reports nausea and Denies vomiting Musculoskeletal: Musculoskeletal: Denies back pain and Reports neck pain Neurologic: Reports dizziness and Reports headache(s) Endocrine: Endocrine: Denies fatigue [facility] Past Medical History Attestation statement: The following information was validated with the patient. Medical History Arthritis Peptic ulcer GERD (gastroesophageal reflux disease) CVA (cerebral vascular accident) SOB (shortness of breath) Atrial fibrillation Seizure On beta christina at home On anticoagulant therapy SANDEE (obstructive sleep apnea) Morbid obesity with BMI of 45.0-49.9, adult Gout High cholesterol Hypertension COVID-19 Osteoarthritis of knees, bilateral History of gastric ulcer Left inguinal hernia (~2013) Lab test positive for detection of COVID-19 virus (~11/2019) Bleeding disorder Asthma Surgical History History of back surgery S/P partial hysterectomy (11/10/18) H/O umbilical hernia repair (07/25/06) Hx of endoscopy Family History Family History Father Hx of diabetes insipidus Mother No problems noted. Social History Social History Household Members: Family Housing: Condominium Are you a primary care connector to a significant other at home: No Do you presently have visiting nurse or other home services: No Alcohol intake: never Comment: counts correct Patient Tobacco Use Status: Never used Tobacco Smoked in Last 30 Days: No e-Cigarette/Vaping Use: Never Used Second Hand Smoke Exposure: No Use of substances other than those prescribed or required for medical reasons: No Advance Directives: Yes Advance Directives on File: Yes Advance Directives Date on File: 01/24/21 Patient : No service: No Current occupational status: unemployed Current occupation: right handed Physical Exam ED Vital Signs: Vital Signs - 24 hr 12/23/24 17:36 12/23/24 21:35 12/24/24 00:07 Temperature 97.3 F 97.8 F Pulse Rate 85 83 Respiratory Rate 16 16 14 Blood Pressure 144/92 H 154/84 H 160/94 H Pulse Oximetry 96 98 95 Oxygen Delivery Method Room Air Room Air Room Air BMI result Body Mass Index 46.8 Const Other: Alert well-appearing Orientation/consciousness: patient oriented x3 Eyes Direct Ophthalmoscopy: photophobia Neck Other: Patient able to move the neck, no meningeal signs on exam, pain with range of motion Resp Effort & Inspection: normal respiratory effort Cardio Other: Normal peripheral perfusion Skin Other: Warm dry no rash Neuro General: patient oriented x3, gait normal, no focal motor deficits and CN's II-XI intact bilaterally Psych Other: Cooperative Course Course Course Narrative: This is an RME: Additional HPI, ROS, PE not included below will be deferred to primary provider. RME assessment and note performed by: Elizabeth Dang PA-C This is a 22-z[age]wt-female, asthma, atrial fibrillation on apixiban, CVA, neuropathy, degenerative disc disease, cervical positioned spinal cord stimulator, HTN, HLD, seizures, SANDEE on CPAP, migraines, anemia, chronic pain syndrome, GERD, who presents to the ER with concerns for BL rib x 2 weeks and acute on chronic headache which worsened last night. Plan: Labs, CT head Reevaluation(s) Reevaluation #1: Headache resolved Time: 01:58 Medications Administered Discontinued Medications Generic Name Dose Route Start Last Admin Trade Name Freq PRN Reason Stop Dose Admin Acetaminophen 975 mg 12/23/24 20:20 12/23/24 21:19 Acetaminophen 325 Mg Tablet PO 12/23/24 20:21 975 mg ONCE ONE Administration Dexamethasone Sodium Phosphate 10 mg 12/23/24 20:20 12/23/24 21:20 Dexamethasone Sod Phosphate 10 Mg/Ml Vial IVPUSH 12/23/24 20:21 10 mg ONCE ONE Administration Diphenhydramine HCl 25 mg 12/23/24 20:20 12/23/24 21:19 Diphenhydramine Hcl 50 Mg/Ml Vial IVPUSH 12/23/24 20:21 25 mg ONCE ONE Administration Sodium Chloride 500 mls @ 500 mls/hr 12/23/24 20:20 12/23/24 22:35 Ns IV 12/23/24 21:19 Infused .Q1H ONE Infusion Methocarbamol 750 mg 12/23/24 20:22 12/23/24 21:19 Methocarbamol 750 Mg Tablet PO 12/23/24 20:23 750 mg ONCE ONE Administration Prochlorperazine Edisylate 10 mg 12/23/24 20:20 12/23/24 21:20 Prochlorperazine Edisylate 10 Mg/2 Ml Vial IVPUSH 12/23/24 20:21 10 mg ONCE ONE Administration Medical Decision Making Medical Decision Making MDM Narrative: 54-year-old female with a history of asthma, atrial fibrillation on apixiban, CVA, neuropathy, degenerative disc disease, cervical positioned spinal cord stimulator, HTN, HLD, seizures, SANDEE on CPAP, migraines, anemia, chronic pain syndrome, GERD, presents with ongoing headache x2 weeks. Patient states her headache increased in severity, it is generalized at this time. Associated neck stiffness. She states she typically develops neck pain with her headaches. Associated phonophobia, photophobia, dizziness, nausea. Denies fever, recent illness/viral syndrome. Problem: Prior CVA, degenerative disc disease of the cervical spine, migraine, obesity History: Per patient I have considered the following differential diagnoses: CVA, intracranial hemorrhage, meningitis, migraine, tension headache, VAD Plan: Patient here with a migraine type headache, she has a history of migraines, we will give a migraine cocktail. In addition to screening labs, CT scan of the brain was obtained it is negative. Thought about meningitis given concurrent neck pain, however there are no meningeal signs on exam she is afebrile. She does have underlying cervical degenerative disc disease, this is typical for her migraine presentation, there must be some element of tension type headache. Thought about VAD, however there was no preceding heavy lifting injury, she is neurologically intact. I have independently reviewed the following tests: Labs: Leukocytosis noted, not anemic, no electrolyte abnormality, troponin negative, viral panel negative Chest x-ray:Findings: No cardiomegaly. Normal mediastinal contours. No pneumothorax. No opacity. No pleural effusion. Normal upper abdomen. No acute fracture. Nerve stimulators. Impression: No acute findings. CT brain,Findings: No acute hemorrhage. No extra-axial fluid collection. No hydrocephalus, mass-effect or herniation. Yarbrough-white differentiation is maintained. White matter is within normal limits for age. No acute orbital pathology. No acute soft tissue abnormality. No fracture. The visualized paranasal sinuses are predominantly clear. The mastoid air cells are clear. Impression: No acute findings. Lab Data 12/23/24 18:05 12/23/24 18:05 Labs: Lab Results 12/23/24 Range/Units 18:05 WBC 17.1 H (4.8-10.8) X10*3/uL RBC 4.34 (4.20-5.50) X10*6/uL Hgb 12.8 (12.0-16.0) g/dl Hct 38.7 (37.0-47.0) % MCV 89.2 (80.0-98.0) fL MCH 29.5 (27.0-33.0) pg MCHC 33.1 (31.0-35.0) g/dl RDW 14.1 (11.0-16.0) % Plt Count 430 H (160-400) X10*3/uL MPV 9.8 (9.4-12.3) fL Immature Gran % (Auto) 0.4 (0.0-0.4) % Neut % (Auto) 72.3 (45-73) % Lymph % (Auto) 19.9 L (20-40) % Woodson % (Auto) 5.3 (2-11) % Eos % (Auto) 1.8 (0-4) % Baso % (Auto) 0.3 (0-2) % Lymph # (Auto) 3.4 (1.2-4.9) X10*3/uL Woodson # (Auto) 0.9 (0.1-1.2) X10*3/uL Eos # (Auto) 0.3 (0.0-0.4) X10*3/uL Baso # (Auto) 0.1 (0.0-0.2) X10*3/uL Abs Immat Gran (auto) 0.06 H (0.00-0.03) X10*3/uL Absolute Neuts (auto) 12.4 H (2.0-8.3) x10*3/uL Absolute Nucleated RBC 0.000 (0.0-0.012) X10*3/uL Nucleated RBC % (auto) 0.0 (0.0-0.2) /100WBC Sodium 141 (135-145) mmol/L Potassium 4.0 (3.3-5.1) mmol/L Chloride 105 (96-108) mmol/L Carbon Dioxide 26 (22-29) mmol/L Anion Gap 14 (12-20) BUN 16 (9-16) mg/dL Creatinine 0.83 (0.5-1.4) mg/dL Estim Creat Clear Calc 121.6 Estimated GFR > 60 Random Glucose 117 H (60-115) mg/dL Calcium 9.2 (8.4-10.2) mg/dL Magnesium 2.3 (1.6-2.6) mg/dL Total Bilirubin 0.3 (0.0-1.0) mg/dL Direct Bilirubin 0.2 (0.0-0.5) mg/dL AST 18 (5-31) U/L ALT 21 (0-31) U/L Alkaline Phosphatase 141 H (39-117) U/L Troponin I High Sens < 2.7 (<3.5-17.0) ng/L Total Protein 7.9 (6.5-8.0) g/dL Albumin 4.5 (3.5-5.0) g/dL Influenza Type A (PCR) NEGATIVE (Negative) Influenza Type B (PCR) NEGATIVE (Negative) RSV RNA Qual (PCR) NEGATIVE (Negative) SARS-CoV-2 RNA (RT-PCR) NEGATIVE (Negative) Discharge Plan Discharge Clinical Impression: Migraine Patient Disposition: Home, Self-Care Instructions: Migraine Headache (ED) Additional Instructions: You were treated for a migraine type headache. It resolved with migraine cocktail. The CT head of your brain was normal, all of your screening labs were overall normal, including a cardiac enzymes which was negative. You do have a slight bump in your white blood cell count. The viral panel was negative, the chest x-ray was clear. Follow up with your primary care provider as needed. If your headaches become frequent, you may want to discuss with your primary care provider the need for a medication to help prevent headaches. Prescriptions: No Action naloxone 4 mg/actuation spray,non-aerosol 4 mg intranasal Q2M PRN (Reason: opioid overdose) 1 Days Qty: 2 4RF Rx Instructions: spray 1 dose into ONE nostril; alternate nostrils w each dose until help arrives topiramate 100 mg tablet 100 mg PO BEDTIME 30 Days Qty: 30 6RF topiramate 25 mg tablet 50 mg PO DAILY 30 Days Qty: 60 3RF Rx Instructions: continues topiramate 100mg qhs gabapentin 300 mg capsule 300 mg PO BID 30 Days Qty: 60 5RF Aimovig Autoinjector 140 mg/mL auto-injector 140 mg subcut Q30D 30 Days Qty: 1 11RF Rx Instructions: PA APPROVED 11/19/24-until further notice ascorbic acid (vitamin C) 500 mg capsule, extended release 500 mg PO DAILY Rx Instructions: take with iron cyanocobalamin (vitamin B-12) [Vitamin B-12] 500 mcg Tablet 500 mcg PO DAILY rosuvastatin 20 mg Tablet 20 mg PO DAILY docusate sodium 100 mg Capsule 100 mg PO BID ferrous sulfate 325 mg (65 mg iron) Tablet 325 mg PO DAILY fluticasone propion-salmeterol [Advair HFA] 230-21 mcg/actuation Hfa Aerosol Inhaler 2 puff INHALATION BID albuterol sulfate 2.5 mg /3 mL (0.083 %) Solution For Nebulization 2.5 mg inhalation Q4H PRN (Reason: Respiratory Distress) albuterol sulfate 90 mcg/actuation Hfa Aerosol Inhaler 2 puff INHALATION Q4-6H PRN (Reason: Respiratory Distress) Zepbound 2.5 mg/0.5 mL Pen Injector 2.5 mg SUBCUT FR@1000 Rx Instructions: for 4 weeks clonidine HCl 0.1 mg tablet 0.1 mg PO BID cetirizine 10 mg tablet 10 mg PO BEDTIME duloxetine 30 mg capsule,delayed release(DR/EC) 30 mg PO BEDTIME montelukast 10 mg tablet 10 mg PO BEDTIME metoprolol tartrate 50 mg tablet 50 mg PO BID Eliquis 5 mg tablet 5 mg PO BID losartan 100 mg tablet 100 mg PO DAILY ergocalciferol (vitamin D2) 1,250 mcg (50,000 unit) capsule 1,250 mcg PO FR@0900 furosemide 20 mg tablet 20 mg PO BID amlodipine 5 mg tablet 5 mg PO DAILY omeprazole 40 mg capsule,delayed release(DR/EC) 40 mg PO BID Tab-A-Bing Multivitamin w-iron 15 mg iron- 400 mcg tablet 1 tab PO BEDTIME Ubrelvy 100 mg tablet 50 - 100 mg PO ONCE PRN (Reason: migraine headache) 30 Days Qty: 16 6RF Rx Instructions: take at onset of migraine, may repeat in 2hrs (may take w/ Tylenol). PA approved through 12/03/24. Partial fill upon pt request. riboflavin (vitamin B2) 400 mg tablet 400 mg PO DAILY 90 Days Qty: 90 3RF magnesium oxide 400 mg (241.3 mg magnesium) tablet 400 mg PO BEDTIME 90 Days Qty: 90 3RF Rx Instructions: may hold for loose stools pyridoxine (vitamin B6) 50 mg tablet 50 mg PO BID 30 Days Qty: 60 3RF Stand Alone Forms: Work/School Release Interventions: ED Discharge Assessment Last Done: 12/24/24 02:21 Discharge Date/Time: 12/24/24 02:22 Print Language: Syriac
[2024-12-23 18:14] LABS: MANUAL DIFF FLAG NO
[2024-12-23 18:25] LABS: Hematocrit 38.7 % (37.0-47.0); Hemoglobin 12.8 g/dl (12.0-16.0); Imm Gran Abs Auto 0.06 X10*3/uL (0.00-0.03); Imm Gran Pct Auto 0.4 % (0.0-0.4); Lymphocytes Absolute Auto 3.4 X10*3/uL (1.2-4.9); Mean Corpuscular HGB Conc 33.1 g/dl (31.0-35.0); Mean Corpuscular Hemoglobin 29.5 pg (27.0-33.0); Mean Corpuscular Volume 89.2 fL (80.0-98.0); NRBC Abs Auto 0.000 X10*3/uL (0.0-0.012); NRBC Pct Auto 0.0 /100WBC (0.0-0.2); Platelet Count 430 X10*3/uL (160-400); Red Blood Count 4.34 X10*6/uL (4.20-5.50); White Blood Count 17.1 X10*3/uL (4.8-10.8)
[2024-12-23 18:30] LABS: Alanine Aminotransferase 21 U/L (0-31); Albumin Level 4.5 g/dL (3.5-5.0); Alkaline Phosphatase 141 U/L (39-117); Anion Gap 14 (12-20); Aspartate Amino Transferase 18 U/L (5-31); Blood Urea Nitrogen 16 mg/dL (9-16); Calcium 9.2 mg/dL (8.4-10.2); Carbon Dioxide 26 mmol/L (22-29); Chloride 105 mmol/L (96-108); Creatinine Clr Calc Pharmacy 121.6; Estimated Glomerular Filt Rate > 60; Magnesium 2.3 mg/dL (1.6-2.6); Potassium 4.0 mmol/L (3.3-5.1); Sodium 141 mmol/L (135-145); Total Protein 7.9 g/dL (6.5-8.0)
[2024-12-23 18:38] LABS: Troponin-I High Sensitivity < 2.7 ng/L (<3.5-17.0)
[2024-12-23 18:56] LABS: Resp Syncy Virus RNA Qual PCR NEGATIVE (Negative); SARS COV2 PCR INHOUSE NEGATIVE (Negative)
--- OUTSIDE RECORDS SUMMARY | 2024-12-23 19:59 | XMS_ITS | Encounter Summary ---
Author Organization [facility] Address [address] [place] [address] Care Team Providers Care Medical Tech Name Role Phone Bradley Alves MD Primary Care Provider Davina Veronica Primary Care Provider Reva byers Encounter Details Date Type Department Care Team Description 05/25/2019 Release of Information Medical Records [address] [place] [address] Abstract, Provider Social History Tobacco Use Types Packs/Day Years [...] Assigned at Date Recorded Not on file documented as of this encounter Plan of Treatment Not on file documented as of this encounter Visit Diagnoses Not on filedocumented in this encounter Care Teams Medical Tech Relationship Specialty Start Date End Date Bradley Alves MD PCP - General Internal Medicine 05/03/19 06/26/21 Davina Marie PCP - General Family Practice 06/27/21 documented as of this encounter
--- OUTSIDE RECORDS SUMMARY | 2024-12-23 19:59 | XMS_ITS | Clinical Summary ---
Author Organization [facility] it Address [address] [place] [address] Care Team Providers Care Analyst Competitive Intelligence Name Role Phone Davina Marie MD Primary Care Provider [phone] Surgical History Surgery Date Site/Laterality Comments OTHER SURGICAL HISTORY PROCEDURE: CA ANES HRNA REPAIR UPR ABD TABDL RPR DIPHRG HRNA SALPINGOOPHORECTOMY 10/2018 Left PROCEDURE: CA LAPAROSCOPY W/RMVL ADNEXAL STRUCTURES; COMMENT: ovarian torsion OTHER SURGICAL HISTORY 2016 PROCEDURE: CA DILATION & CURETTAGE DX&/THER NONOBSTETRIC Medical History [...] 5 Years) and At-Risk Patients (6 to 49 Years) Aged Out No longer eligi ble [...] RESULTING AGENCY - 09/11/2020 4:30 PM EDT [id number] THINPREP PAP, IMAGED: NEGATIVE FOR SQUAMOUS INTRAEPITHELIAL [...] Documents on File Type Date Recorded 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
--- OUTSIDE RECORDS SUMMARY | 2024-12-23 19:59 | XMS_ITS | Encounter Summary ---
Author Organization [facility] Address [address] [place] [address] Care Team Providers Care Supervisor Assembly Stock Name Role Phone Bradley Juan MD Unavailable Yusra Barton APRN Primary Care Provider Encounter Details Date Type Department Care Team (Late st Contact Info) Description 09/15/2018 Scanned Document [facility] SU[employer]ENT [address] [place] [id number] Provider, MD [address] [place] [address] Social History Tobacco Use Types Packs/Day Years [...] on filedocumented in this encounter Care Teams Supervisor Assembly Stock Relationship Specialty Start Date End Date Yusra Barton APRN [address] [place] [id number] PCP - General Family Medicine 05/25/18 Bradley Juan MD [address] [place] [address] Physician Cardiovascular Disease 07/08/17 documented as of this encounter
--- OUTSIDE RECORDS SUMMARY | 2024-12-23 19:59 | XMS_ITS | Clinical Summary ---
Author Organization [facility] Address [address] [place] [address] Care Team Providers Care Oil Field Technician Name Role Phone Unavailable Primary Care Provider [...] Migraine 08/13/2018 Overview (08/12/2019): Overview Note: Migraine #[id number]# EXT_ID: [id number] Low back pain 10/29/2017 Overview (08/12/2019): Overview Note: Low back pain #[id number]# EXT_ID: [id number] Restless leg syndrome 06/12/2017 Overview (08/12/2019): Overview Note: Restless leg syndrome #[id number]# EXT_ID: [id number] Osteoarthritis of knees, bilateral 06/12/2017 Overview (08/12/2019): Overview Note: Osteoarthritis of knees, bilat #[id number]# EXT_ID: [id number] Knee arthropathy 06/12/2017 Overview (08/12/2019): Overview Note: Knee arthropathy #[id number]# EXT_ID: [id number] Hypertension 01/23/2017 Overview (08/12/2019): Overview Note: Hypertension #[id number]# EXT_ID: [id number] Immunizations Immunization Administration Dates Next Due INFLUENZA, [...] 09/23/2018 6:12 PM EDT Temperature 37.3 C ([id number] F) 09/23/2018 6:12 PM EDT Respiratory Rate [...]
[2024-12-23 21:35] VITALS: BP 154/84; PULSE 83; RESP 16; TEMP 36.6; O2SAT 98
[2024-12-24 00:07] VITALS: BP 160/94; RESP 14; O2SAT 95
[2024-12-24 02:20] VITALS: BP 153/87; PULSE 97; RESP 18; TEMP 36.5; O2SAT 95
[2024-12-24 02:21] VITALS: BP 153/87; PULSE 97; RESP 18; TEMP 36.5; O2SAT 95
== END 2024-12-24 02:22 | disposition home or self-care (01) ==
PROVIDERS: Physician Assistant Medical; Emergency Provider Emergency Medicine Emergency Medical Services; PCP Student in an Organized Health Care Education/Training Program
DX: G43.909 Migraine, unspecified, not intractable, without status migrainosus (principal); J45.909 Unspecified asthma, uncomplicated; I48.91 Unspecified atrial fibrillation; Z79.01 Long term (current) use of anticoagulants; I10 Essential (primary) hypertension; E78.5 Hyperlipidemia, unspecified; G47.33 Obstructive sleep apnea (adult) (pediatric); K21.9 Gastro-esophageal reflux disease without esophagitis; Z03.818 Encounter for observation for suspected exposure to other biological agents ruled out
CPT/HCPCS: 70450; 71046; 80048; 80076; 83735; 84484; 85025; 87637; 96361; 96374; 96375; 99284; J0737; J1100; J1200

== ENCOUNTER → 2024-12-23 17:42 | Outpatient (BNV) | payer MEDICAID, SELFPAY | PROVIDERS: PCP Student in an Organized Health Care Education/Training Program; Visit Provider Radiology Diagnostic Radiology | DX: R51.9 Headache, unspecified (principal); R07.9 Chest pain, unspecified | CPT/HCPCS: 70450; 71046 ==

== ENCOUNTER 2025-02-20 13:25 | Emergency (ER) | payer MEDICARE, MEDICAID, SELFPAY ==
--- NOTE | ~2025-02-20 | XR_ITS ---
CLINICAL HISTORY: Knee pain Four views of the right and left knees. COMPARISON: None provided. FINDINGS: Likely stimulator leads along the proximal medial tibia is bilaterally. Right knee: No appreciable right suprapatellar joint effusion. Patellar enthesophyte present. Tricompartment osteophytes and joint space narrowing. Visualized portions of the right femur, patella, tibia and fibula appear intact. Left knee: No appreciable left suprapatellar joint effusion. Patellar enthesophyte present. Small well corticated ossification measuring 0.6 x 0.4 cm present along the superior pole of the patella on lateral imaging likely representing a remote injury versus displaced osteophyte. Tricompartment osteophytes and joint space narrowing. Visualized portions of the left femur, patella, tibia and fibula appear intact. IMPRESSION: 1. No radiographic evidence of acute injury to the right and left knees. 2. [id number] tricompartment degenerative changes of the bilateral knees. 3. Patellar enthesophytes present bilaterally. 4. Well corticated ossification along the superior pole of the left patella likely representing sequela of remote injury or displaced osteophyte. This does not appear acute. This document has been electronically signed by: Shmuel Barton MD on 02/20/2025 15:13:02
--- NOTE | ~2025-02-20 | XR_ITS ---
CLINICAL HISTORY: coughing and wheezing Single view of the chest. COMPARISON: XR chest dated 12/23/24 at 17:57 EDT FINDINGS: Nerve stimulator hardware along the mid to lower thoracic spine and midcervical spine, stable. Normal heart and mediastinal contours. No consolidation. No pleural effusion or pneumothorax. Mild spondylosis. No acute fracture. IMPRESSION: 1. No consolidation. This document has been electronically signed by: Shmuel Barton MD on 02/20/2025 15:09:39
[2025-02-20 13:44] VITALS: BP 155/71; PULSE 82; RESP 18; TEMP 36.3; O2SAT 96; BMI 46.8
--- NOTE | 2025-02-20 13:50 | ED.GENADULT ---
HPI - General Adult General Chief complaint: Extremity Problem Stated complaint: Knee issues, chronic headaches Time Seen by Provider: 02/20/25 14:50 Source: patient Mode of arrival: ambulatory Limitations: no limitations History of Present Illness ED Provider: HPI narrative: Patient with a history of asthma presenting with several issues, reporting bilateral knee pain, no fevers or chills no swelling, nontraumatic, was noted to be wheezing, and has had no fevers or chills reported.. She also reports upper back spasm. Related Data Home Medications ?Medication ?Instructions ?Recorded ?Confirmed cetirizine 10 mg tablet 10 mg PO BEDTIME 04/27/20 09/27/24 duloxetine 30 mg capsule,delayed 30 mg PO BEDTIME 04/27/20 09/27/24 release metoprolol tartrate 50 mg tablet 50 mg PO BID 04/27/20 09/27/24 montelukast 10 mg tablet 10 mg PO BEDTIME 04/27/20 09/27/24 clonidine HCl 0.1 mg tablet 0.1 mg PO BID 06/05/20 09/27/24 apixaban 5 mg tablet (Eliquis) 5 mg PO BID 06/28/20 09/27/24 losartan 100 mg tablet 100 mg PO DAILY 06/28/20 09/27/24 furosemide 20 mg tablet 20 mg PO BID 12/25/21 09/27/24 ergocalciferol (vitamin D2) 1,250 1,250 mcg PO FR@0900 01/08/22 09/27/24 mcg (50,000 unit) capsule amlodipine 5 mg tablet 5 mg PO DAILY 09/24/22 09/27/24 ascorbic acid (vitamin C) 500 mg 500 mg PO DAILY 10/06/22 09/27/24 capsule,extended release omeprazole 40 mg capsule,delayed 40 mg PO BID 01/09/23 09/27/24 release cyanocobalamin (vitamin B-12) 500 500 mcg PO DAILY 12/16/23 09/27/24 mcg tablet (Vitamin B-12) rosuvastatin 20 mg tablet 20 mg PO DAILY 12/16/23 09/27/24 multivitamin-iron sulfate 15 1 tab PO BEDTIME 04/15/24 09/27/24 mg-folic acid 400 mcg tablet (Tab-A-Bing Multivitamin w-iron) albuterol sulfate 2.5 mg/3 mL 2.5 mg inhalation Q4H PRN 09/27/24 09/27/24 (0.083 %) solution for nebulization Respiratory Distress albuterol sulfate 90 mcg/actuation 2 puff inhalation Q4-6H PRN 09/27/24 09/27/24 aerosol inhaler Respiratory Distress docusate sodium 100 mg capsule 100 mg PO BID 09/27/24 09/27/24 ferrous sulfate 325 mg (65 mg 325 mg PO DAILY 09/27/24 09/27/24 iron) tablet fluticasone propionate 230 2 puff inhalation BID 09/27/24 09/27/24 mcg-salmeterol 21 mcg/actuation HFA inhaler (Advair HFA) tirzepatide (weight loss) 2.5 2.5 mg subcut FR@1000 09/27/24 09/27/24 mg/0.5 mL subcutaneous pen injector (Zepbound) Previous Rx's ?Medication ?Instructions ?Recorded naloxone 4 mg/actuation nasal spray 4 mg intranasal Q2M PRN opioid 12/19/23 overdose 1 day #2 ea topiramate 100 mg tablet 100 mg PO BEDTIME 30 days #30 tabs 09/10/24 gabapentin 300 mg capsule 300 mg PO BID 30 days #60 caps 10/11/24 magnesium oxide 400 mg (241.3 mg 400 mg PO BEDTIME 90 days #90 tabs 11/26/24 magnesium) tablet pyridoxine (vitamin B6) 50 mg 50 mg PO BID 30 days #60 tabs 11/26/24 tablet riboflavin (vitamin B2) 400 mg 400 mg PO DAILY 90 days #90 tabs 11/26/24 tablet erenumab-aooe 140 mg/mL 140 mg subcut Q30D 30 days #1 mL 12/03/24 subcutaneous auto-injector (Aimovig Autoinjector) rimegepant 75 mg disintegrating 75 mg PO DAILY PRN migraine 01/10/25 tablet (Nurtec ODT) headache 30 days #16 tabs topiramate 25 mg tablet 50 mg (2 x 25 mg) PO DAILY 30 days 01/19/25 #60 tabs prednisone 20 mg tablet 40 mg (2 x 20 mg) PO DAILY 5 days 02/20/25 #10 tabs Allergies Allergy/AdvReac Type Severity Reaction Status Date / Time bacitracin Allergy Mild Rash Verified 02/20/25 13:48 ibuprofen Allergy Unknown Verified 02/20/25 13:48 lisinopril Allergy Unknown Verified 02/20/25 13:48 aspirin AdvReac Mild mild Verified 02/20/25 13:48 vaginal bleeding Review of Systems Constitutional: Constitutional: Reports as per HPI [facility] Past Medical History Medical History Arthritis Peptic ulcer GERD (gastroesophageal reflux disease) CVA (cerebral vascular accident) SOB (shortness of breath) Atrial fibrillation Seizure On beta christina at home On anticoagulant therapy SANDEE (obstructive sleep apnea) Morbid obesity with BMI of 45.0-49.9, adult Gout High cholesterol Hypertension COVID-19 Osteoarthritis of knees, bilateral History of gastric ulcer Left inguinal hernia (~2013) Lab test positive for detection of COVID-19 virus (~11/2019) Bleeding disorder Asthma Surgical History History of back surgery S/P partial hysterectomy (11/10/18) H/O umbilical hernia repair (07/25/06) Hx of endoscopy Family History Family History Father Hx of diabetes insipidus Mother No problems noted. Social History Social History Household Members: Family Housing: Condominium Are you a primary progressive care manager to a significant other at home: No Do you presently have visiting nurse or other home services: No Alcohol intake: never Comment: counts correct Patient Tobacco Use Status: Never used Tobacco e-Cigarette/Vaping Use: Never Used Second Hand Smoke Exposure: No Advance Directives: Yes Advance Directives on File: Yes Advance Directives Date on File: 01/24/21 service: No Current occupational status: unemployed Current occupation: right handed Physical Exam ED Vital Signs: Vital Signs - 24 hr 02/20/25 13:44 Temperature 97.3 F Pulse Rate 82 Respiratory Rate 18 Blood Pressure 155/71 H Pulse Oximetry 96 Oxygen Delivery Method Room Air BMI result Body Mass Index 46.8 Const Other: Gen: ?Overall well-appearing patient HEENT: PERRLA, EOMI, MMM, Neck: Tenderness along bilateral trapezii CV: RRR, no obvious murmurs appreciated, radial ulnar pulses intact bilaterally Resp: Minimal expiratory wheezing throughout Abd: ?Bowel sounds are present, no tenderness no rebound no rigidity MSK: FROM, strength 5/5 all extremities, no effusion of the knees, general tenderness along patellofemoral joints mostly compartments are soft Skin: Warm, dry, intact, Neuro: ?Alert and oriented x3, moving upper and lower extremities symmetrically, no obvious facial asymmetry noted Course Course Course Narrative: RME: 54-year-old female presents to ED for bilateral knee pain for the past 2 weeks. Patient wheezing in triage. Patient has history of asthma. Negative for leg swelling pitting edema calf pain. Positive for wheezing. X-ray of the knee chest SARs strep ordered Medications Administered Discontinued Medications Generic Name Dose Route Start Last Admin Trade Name Freq PRN Reason Stop Dose Admin Dexamethasone 10 mg 02/20/25 15:11 02/20/25 15:59 Dexamethasone 2 Mg Tablet PO 02/20/25 15:12 10 mg ONCE ONE Administration Medical Decision Making Medical Decision Making [facility] Narrative: Patient with multiple complaints, her musculoskeletal issues non present with neurovascular compromise or any evidence for infectious etiology, as far as her pulmonary exam she has wheezing, history of asthma, obstructive sleep apnea, I will start her on steroids or recommend she follow up with the PCP, x-rays of the knees and chest x-ray reveal no acute findings Differential Diagnosis Differential Diagnoses: The differential diagnosis associated with the presentation includes (Bronchitis, asthma, pneumonia, arthritic joints, septic joints) Lab Data MDM Lab Attestation statement: I reviewed the patient's lab results. Labs: Lab Results 02/20/25 Range/Units 14:11 COVID-19 (TALIB) Negative (Negative) COVID-19 Clin Com See Note Influenza Type A (CHANTAL) Negative (Negative) Influenza Type B (CHANTAL) Negative (Negative) Influenza A & B Note See Note Independent Interpretation I performed an independent interpretation of an: EKG and Plain X-Ray (Bilateral knee x-rays with the arthritic changes mostly patellofemoral joint, chest x-ray of the lung without any obvious consolidations) Radiology Impression Discussion of test interpretation with radiology: I have reviewed the radiologist's reading. Prescription Management I considered prescription management with: Antibiotic Chronic Conditions Patient?s care impacted by: Other (Increased BMI, asthma) Discharge Plan Discharge Clinical Impression: Bilateral knee pain, Asthma Patient Disposition: Home, Self-Care Additional Instructions: Chest x-ray without pneumonia, you have arthritic changes in the knees, mostly in the patellofemoral kneecap joints, you have spasm of the upper back, mostly what I can do in the emergency department and started on steroids as your wheezing with a history of asthma, though help you with the your arthritic pain as well. Prescriptions: New prednisone 20 mg tablet 40 mg PO DAILY 5 Days Qty: 10 0RF No Action naloxone 4 mg/actuation spray,non-aerosol 4 mg intranasal Q2M PRN (Reason: opioid overdose) 1 Days Qty: 2 4RF Rx Instructions: spray 1 dose into ONE nostril; alternate nostrils w each dose until help arrives topiramate 100 mg tablet 100 mg PO BEDTIME 30 Days Qty: 30 6RF gabapentin 300 mg capsule 300 mg PO BID 30 Days Qty: 60 5RF Aimovig Autoinjector 140 mg/mL auto-injector 140 mg subcut Q30D 30 Days Qty: 1 11RF Rx Instructions: [place] APPROVED 11/19/24-until further notice topiramate 25 mg tablet 50 mg PO DAILY 30 Days Qty: 60 6RF Rx Instructions: continues topiramate 100mg qhs ascorbic acid (vitamin C) 500 mg capsule, extended release 500 mg PO DAILY Rx Instructions: take with iron cyanocobalamin (vitamin B-12) [Vitamin B-12] 500 mcg Tablet 500 mcg PO DAILY rosuvastatin 20 mg Tablet 20 mg PO DAILY docusate sodium 100 mg Capsule 100 mg PO BID ferrous sulfate 325 mg (65 mg iron) Tablet 325 mg PO DAILY fluticasone propion-salmeterol [Advair HFA] 230-21 mcg/actuation Hfa Aerosol Inhaler 2 puff INHALATION BID albuterol sulfate 2.5 mg /3 mL (0.083 %) Solution For Nebulization 2.5 mg inhalation Q4H PRN (Reason: Respiratory Distress) albuterol sulfate 90 mcg/actuation Hfa Aerosol Inhaler 2 puff INHALATION Q4-6H PRN (Reason: Respiratory Distress) Zepbound 2.5 mg/0.5 mL Pen Injector 2.5 mg SUBCUT FR@1000 Rx Instructions: for 4 weeks clonidine HCl 0.1 mg tablet 0.1 mg PO BID cetirizine 10 mg tablet 10 mg PO BEDTIME duloxetine 30 mg capsule,delayed release(DR/EC) 30 mg PO BEDTIME montelukast 10 mg tablet 10 mg PO BEDTIME metoprolol tartrate 50 mg tablet 50 mg PO BID Eliquis 5 mg tablet 5 mg PO BID losartan 100 mg tablet 100 mg PO DAILY ergocalciferol (vitamin D2) 1,250 mcg (50,000 unit) capsule 1,250 mcg PO FR@0900 furosemide 20 mg tablet 20 mg PO BID amlodipine 5 mg tablet 5 mg PO DAILY omeprazole 40 mg capsule,delayed release(DR/EC) 40 mg PO BID Tab-A-Bing Multivitamin w-iron 15 mg iron- 400 mcg tablet 1 tab PO BEDTIME riboflavin (vitamin B2) 400 mg tablet 400 mg PO DAILY 90 Days Qty: 90 3RF magnesium oxide 400 mg (241.3 mg magnesium) tablet 400 mg PO BEDTIME 90 Days Qty: 90 3RF Rx Instructions: may hold for loose stools pyridoxine (vitamin B6) 50 mg tablet 50 mg PO BID 30 Days Qty: 60 3RF Nurtec ODT 75 mg tablet,disintegrating 75 mg PO DAILY MDD 1 tab PRN (Reason: migraine headache) 30 Days Qty: 16 6RF Interventions: ED Discharge Assessment Last Done: 02/20/25 16:06 Discharge Date/Time: 02/20/25 16:13 Print Language: Thai
[2025-02-20 14:35] LABS: COVID-19 Test Negative (Negative); IDNOW Serial# 55D5AD1C; IDNOW Serial# 58CA691E; Influenza B2 Negative (Negative)
--- OUTSIDE RECORDS SUMMARY | 2025-02-20 15:21 | XMS_ITS | Encounter Summary ---
Author Organization [employer] Address [address] [place] [address] Care Team Providers Care Speech Therapist Name Role Phone Davina Marie MD Primary Care Provider Encounter Details Date Type Department Care Team (Late st Contact Info) Description 02/20/2025 Orders Only GENERIC EXTERNAL DATA DEPARTMENT Provider, Generic External Data Social History Tobacco Use Types Packs/Day Years [...] housing situation today? I have valentino romero 12/31/[address] you li ve. Do you have problems with any of the following? None of the above 12/31/2024 Food Insecurity Answer Date Recorded Within the past 12 months, y ou worried that your food would run out before you got money to buy more: Never True 12/31/2024 Within the past 12 months,th e food you bought just didn't last and you didn't have enough money to get more: Never True Transportation Answer Date Recorded In the past 12 months, has l ack of transportation kept you from medical appts, meetings, work or from getting things needed for daily living? No 12/31/2024 Utilities Answer Date Recorded In the past 12 months, has t he electric, gas, oil or water company threatened to shut off services in your home? No 12/31/2024 Depression Answer Date Recorded Patient Health Questionnaire-2 Score 2 09/24/2023 Internet Access Answer Date Recorded Internet Access Q1 Yes 12/31/2024 Internet Access Q2 Not on file 12/31/2024 Comments Unknown Sex and Gender Information Value Date Recorded Sex Assigned at Female 04/15/2022 10:14 AM EDT Legal Sex Female 10:14 AM EDT Gender Identity Female 04/15/2022 10:14 AM EDT Sexual Orientation Choose not to disclose 2021 10:14 AM EDT documented as of this encounter Plan of Treatment Not on file documented as of this encounter Procedures Procedure Name Priority Date/Time Associated Diagnosis Comments INFLUENZA A B2 ID NOW (LARRY) Routine 02/20/2025 2:11 PM EDT COVID-19 ID NOW (LARRY) Routine 02/20/2025 2:11 PM EDT documented in this encounter Results * Influenza A B2 ID NOW (Larry) (02/20/2025 2:11 PM EDT) IDNOW SERIAL# [id number] [facility] Influenza A Negative Negative [facility] Influenza B2 Negative Negative [facility] Influenza A B2 Note See Note [facility] Comment:The Larry ID NOW In fluenza A B2 test is used for thequalitative detection of influenza A and B from patientswith signs and symptoms of respiratory infection.Negative results do not preclude influenza virus infectionand should not be used as the sole basis for diagnosis,treatment or other patient management decisions.There is a risk of false negative results due to thepresence of variants in the viral targets of the assay, lowlevels of virus in the specimen and co- infection withRespiratory Syncytial Virus. 02/20/2025 2:11 PM EDT 02/20/2025 2:15 PM EDT us Generic External Data Provider LAB MICROBIOLOGY - GENERAL ORDERABLES Final Result Performing Organization Address City/[facility]/ZIP Co de Phone Number [facility] [address] [place] [phone] * COVID-19 ID NOW (LARRY) (02/20/2025 2:11 PM EDT) IDNOW SERIAL# [id number] [facility] COVID-19 TEST Negative Negative [facility] COVID-19 NOTE See Note [facility] Comment: Results are for the identification of SARS-CoV2 RNA. TheSARS-CoV2 RNA is generally detectable in respiratory samplesduring the acute phase of infection. Positive results areindicative of the presence of SARS-CoV-2 RNA; clinicalcorrelation with patient history and other diagnosticinformation is necessary to determine patient infectionstatus. Positive results do not rule out bacterial infectionor co- infection with other viruses.Testing facilities within the [facility] are required to report all positive results tothe appropriate public health authorities.Negative results should be treated as presumptive and, ifinconsistent with clinical signs and symptoms or necessaryfor patient management, should be tested with differentauthorized or cleared molecular tests. Negative results donot preclude SARS-CoV2 RNA infection and should not be usedas the sole basis for patient management decisions. Negativeresults should be considered in the context of a patient'srecent exposures, history and the presence of clinical signsand symptoms consistent with COVID-19.This test has been authorized by the FDA under an EmergencyUse Authorization (EUA) for use by authorized laboratories.Testing performed on the Larry ID NOW utilizing NAAT. 02/20/2025 2:11 PM EDT 02/20/2025 2:15 PM EDT us Generic External Data Provider LAB MOLECULAR CLEOPATRA GNOSTICS ORDERABLES Final Result Performing Organization Address [facility]/ZIP Co de Phone Number [facility] [address] [place] [phone] documented in this encounter Visit Diagnoses Not on filedocumented in this encounter Additional Health Concerns Assessment Noted Time PHQ-9 Depression Total Score: 11 024 9:53 AM EDT documented as of this encounter Care Teams Speech Therapist Relationship Specialty Start Date End Date Daivna Marie MD [address] [place] [address] PCP - General Family Medicine 12/01/19 documented as of this encounter
--- OUTSIDE RECORDS SUMMARY | 2025-02-20 15:21 | XMS_ITS | Encounter Summary ---
Author Organization [employer] Address [address] [place] [address] Care Team Providers Care Aircraft Line Assembler Name Role Phone Davina Marie MD Primary Care Provider [phone] Encounter Details Date Type Department Care Team (Late st Contact Info) Description 01/21/2023 Orders Only [facility] [address] [place] [address] Tamanna Villalpando LPN Social History Tobacco Use [...] filedocumented in this encounter Care Teams Aircraft Line Assembler Relationship Specialty Start Date End Date Davina Marie MD [address] [place] [id number] PCP - General Family Medicine 12/01/19 documented as of this encounter
--- OUTSIDE RECORDS SUMMARY | 2025-02-20 15:21 | XMS_ITS | Clinical Summary ---
Author Organization [facility] Address [address] [place] [address] Care Team Providers Care Valet Runner Name Role Phone Bradley Juan MD Unavailable [phone] Yusra Barton APRN Primary Care Provider [phone] Allergies No known active allergies Medications DULoxetine (CYMBALTA) 30 MG capsule Take 30 mg by mouth daily. 09/11/19 19 Active lisinopril (PRINIVIL,ZeST RIL) 40 MG tablet Take 40 mg by mouth daily. 3 08/13/19 19 Active loratadine (CLARITIN) 10 MG tablet Take 10 mg by mouth daily. 2 07/03/19 19 Active propranolol (INDERAL LA) 80 MG 24 hr capsule Take 1 capsule by mouth daily. 2 08/20/19 19 Active SUMAtriptan (IMITREX) 50 MG tablet Take 50 mg by mouth once as needed for migraine. 2 09/02/19 19 Active tiZANidine (ZANAFLEX) 4 MG tablet Take 1 tablet by mouth 3 times daily (every 8 hours) as needed (lower back pain). 1 08/12/19 19 Active topiramate (TOPAMAX) 50 MG tablet Take 50 mg by mouth 2 (two) times a day. 2 07/03/19 19 Active esomeprazole (NexIUM) 40 MG capsule Take by mouth daily. 1 09/24/19 19 Active ibuprofen (MOTRIN) 800 mg tablet Take 800 mg by mouth 3 (three) times a day with meals. 2 09/29/19 19 Active CARAFATE 1 GM/10ML suspension TAKE 10 MILLILITERS BY ORAL ROUTE 4 TIMES PER DAY ON EMPTY STOMACH 1 HOUR BEFORE MEALS AND BEDTIME 1 09/24/19 19 Active naproxen (NAPROSYN) 375 MG tablet Take by mouth 2 (two) times a day with meals. Take with meals or food to reduce stomach upset. Active metoPROLOL TARTRATE (LOPRESSOR) 25 MG tablet TAKE 1 TABLET (25 MG) BY ORAL ROUTE 2 TIMES PER DAY FOR 30 DAYS 1 07/03/19 18 018 Discontinued Active Problems Problem Noted Date Diagnosed Date Ovarian torsion 09/12/2018 Chest pain 07/08/2017 Immunizations Immunization Administration Dates Next Due Influenza Inactivated/Split Preservative Free IM 09/12/2018() Family History Medical History Relation Name Comments Diabetes Father Hypertension Father Hypertension Mother Heart attack Paternal Uncle Hypertension Sister Relation Name Status Comments Father Mother Paternal Uncle Sister Social History Tobacco Use Types Packs/Day Years [...] Sign Reading Time Taken Comments Blood Pressure 120/82 10/14/2018 9:44 AM EDT Pulse 68 10/14/2018 9:44 AM EDT Temperature 36.9 C (98.4 F) 09/15/2018 10:51 AM EDT Respiratory Rate 19 09/12/2018 7:22 AM EDT Oxygen Saturation 98% 10/14/2018 9:44 AM EDT Inhaled Oxygen Concentration - - Weight 108 kg (238 lb) 10/14/2018 9:44 AM EDT Height 175.3 cm (5' 9 ) 10/14/2018 9:44 AM EDT Body Mass Index 35.15 10/14/2018 9:44 AM EDT Plan of Treatment Health Maintenance Due Date Last Done Comments Hepatitis C Virus Screening 1972 HIV Screening 1985 DTaP/Tdap/Td Vaccines (1 - Tdap) 1991 Hepatitis B Vaccines (1 of 3 - 19+ 3-dose series) 03/17 Mammogram 2012 Colonoscopy 2017 Pap Smear (Ages 21-65) 10/14/2021 10/14/2018 Pneumococcal Vaccines 50+ (1 of 1 - PCV) 2022 Zoster (Shingles) Vaccine (1 of 2) 2022 Influenza Vaccine 01/14/2025 COVID-19 Vaccine ( - season) 2025 Procedures Procedure Name Priority Date/Time Associated Diagnosis Comments THINPREP PAP TEST (MANUAL) WITH HPV SCREEN Routine 10/14/2018 10:22 AM EDT Gynecologic exam normal Screening for HPV (human papillomavirus) from Last 3 Months or Most Recently Relevant to Health Maintenance Results * ThinPrep Pap Test (Manual) with HPV Screen (10/14/2018 10:22 AM EDT) Clinical Information None given [facility] LMP: UNKNOWN [facility] Previous PAP: NONE GIVEN [facility] Previous Biopsy NONE GIVEN [facility] Source: [facility] Comment:Cervix, Endocervix Statement of Adequacy: [facility] Comment: Satisfactory for evaluation. Endocervical/transformation zone component present. Interpretation/Res ult: [facility] Comment:Negative for intraep ithelial lesion or malignancy. Rubber Molder: [facility] Comment: MXD, CT (ASCP) CT screening location: [place] [address] Comment [facility] Comment: EXPLANATORY NOTE: The Pap is a screening test for cervical cancer. It is not a diagnostic test and is subject to false negative and false positive results. It is most reliable when a satisfactory sample, regularly obtained, is submitted with relevant clinical findings and history, and when the Pap result is evaluated along with historic and current clinical information. Hpv Mrna [id number] Not Detected Not Detected [facility] Comment: This test was performed using the APTIMA HPV Assay ([employer] This assay detects E6/E7 viral messenger RNA (mRNA) from 14 high-risk HPV types (16,18,31,33,35,39,45,51,52,56,58,59,66,68). The analytical performance characteristics of this assay have been determined by [facility]. The modifications have not been cleared or approved by the FDA. This assay has been validated pursuant to the CLIA regulations and is used for clinical purposes. 10/14/2018 10:2 2 AM EDT 10/14/2018 10:04 PM EDT Narrative Resulting Agency Comment Performing Organization Information: Site ID: [id number] Name: [facility] Address: [address] [place] [address], [place] [address] Director: Antonio Jj MD Cristela Sanches MD LAB AMB PATH/CYTO ORDERABLES Final Result [facility] [address] [place] [address], [place] [address] from Last 3 Months or Most Recently Relevant to Health Maintenance Insurance [facility] Advance Directives * Full Code (Latest Code Status on File) Date Activated Date Inactivated Comments 09/12/2018 1:53 AM * Full Code Date Activated Date Inactivated Comments 07/08/2017 11:14 PM 09/11/2018 3:55 PM Care Teams Valet Runner Relationship Specialty Start Date End Date Yusra Barton APRN [address] [place] [address] PCP - General Family Medicine 05/25/18 Bradley Juan MD [address] [place] [address] Physician Cardiovascular Disease 07/08/17
--- OUTSIDE RECORDS SUMMARY | 2025-02-20 15:21 | XMS_ITS | Encounter Summary ---
Author Organization [facility] Address [address] [place] [address] Care Team Providers Care Lock Tender Chief Operator Name Role Phone Services-[facility] Care Provider Bradley Juan MD Unavailable [phone] Yusra Barton APRN Primary Care Provider [phone] Encounter Details Date Type Department Care Team (Late st Contact Info) Description 04/06/2018 Telephone [facility] [address] [phone] Lisa Damon RT [address] [place] [phone] Social History Tobacco Use Types Packs/Day Years [...] on file documented as of this encounter Miscellaneous Notes * Telephone Encounter - RT Petty - 04/06/2018 8:36 AM EDT Lm/mph documented in this encounter Plan of Treatment Not on file documented as of this encounter Visit Diagnoses Not on filedocumented in this encounter Care Teams Lock Tender Chief Operator Relationship Specialty Start Date End Date Services-[facility] [address] [place] [address] PCP - General Internal Medicine 05/26/17 05/24/18 Yusra Barton APRN [address] [place] [address] PCP - General Family Medicine 05/25/18 Bradley Juan MD [address] [place] [address] Physician Cardiovascular Disease 07/08/17 documented as of this encounter
--- OUTSIDE RECORDS SUMMARY | 2025-02-20 15:21 | XMS_ITS | Encounter Summary ---
Author Organization [facility] Address [address] [place] [address] Care Team Providers Care Community Health Advocate Name Role Phone Bradley Juan MD Unavailable Yusra Barton APRN Primary Care Provider Encounter Details Date Type Department Care Team (Late st Contact Info) Description 09/15/2018 Scanned Document [facility] DEPENDENCY COUNSELOR [address] [place] [phone] Provider, MD [facility] [address] [place] [address] Social History Tobacco Use Types Packs/Day Years [...] on filedocumented in this encounter Care Teams Community Health Advocate Relationship Specialty Start Date End Date Yusra Barton APRN [address] [place] [address] PCP - General Family Medicine 05/25/18 Bradley Juan MD [address] [place] [address] Physician Cardiovascular Disease 07/08/17 documented as of this encounter
--- OUTSIDE RECORDS SUMMARY | 2025-02-20 15:21 | XMS_ITS | Encounter Summary ---
Author Organization [employer] Address [address] [place] [address] Care Team Providers Care Manager Data Warehouse Name Role Phone Davina Marie MD Primary Care Provider [phone] Encounter Details Date Type Department Care Team (Late st Contact Info) Description 11/19/2022 Orders Only [facility] PEDS [address] [place] [address] Tamanna Villalpando LPN Social History Tobacco Use [...] on filedocumented in this encounter Care Teams Manager Data Warehouse Relationship Specialty Start Date End Date Davina Marie MD [address] [place] [address] PCP - General Family Medicine 12/01/19 documented as of this encounter
--- OUTSIDE RECORDS SUMMARY | 2025-02-20 15:21 | XMS_ITS | Clinical Summary ---
Author Organization [facility] it Address [address] [place] [address] Care Team Providers Care Professor Of History Name Role Phone Davina Marie MD Primary Care Provider [phone] Surgical History Surgery Date Site/Laterality Comments OTHER SURGICAL HISTORY PROCEDURE: [place] ANES HRNA REPAIR UPR ABD TABDL RPR DIPHRG HRNA SALPINGOOPHORECTOMY 10/2018 Left PROCEDURE: [place] LAPAROSCOPY W/RMVL ADNEXAL STRUCTURES; COMMENT: ovarian torsion OTHER SURGICAL HISTORY 2016 PROCEDURE: [place] DILATION & CURETTAGE DX&/THER NONOBSTETRIC Medical History [...] 2) 2022 Colorectal Cancer Screening: Colonoscopy 05/26/2022 HIV Screening 05/26/2022 Hepatitis C Screening 05/26/2022 Social Influencers of Health Screening 05/26/2022 Cervical Cancer Screening: P ap Smear 09/08/2023 09/07/2020 Depression Screening 06/16/2024 COVID-19 Vaccine (1 - 2023-2 5 season) 2025 Influenza Vaccine (#1) 2025 HIB Vaccines Aged [...] RESULTING AGENCY - 09/11/2020 4:30 PM EDT [id number] THINPREP PAP, IMAGED: NEGATIVE FOR SQUAMOUS INTRAEPITHELIAL [...] Documents on File Type Date Recorded Patient Director Media Expl anation Health Care Decision (hx) 12/14/2020 [...] (hx) 12/14/2020 AD SCHUMACHER DIRECTIVE Care Teams Professor Of History Relationship Specialty Start Date End Date Davina Marie MD [address] [place] [address] PCP - General 06/27/21
--- OUTSIDE RECORDS SUMMARY | 2025-02-20 15:21 | XMS_ITS | Clinical Summary ---
Author Organization [facility] Address [address] [place] [address] Care Team Providers Care Cyanide Case Hardener Name Role Phone Unavailable Primary Care Provider [...] Migraine 08/13/2018 Overview (08/12/2019): Overview Note: Migraine #[id number]# EXT_ID: [id number] Low back pain 10/29/2017 Overview (08/12/2019): Overview Note: Low back pain #[id number]# EXT_ID: [id number] Restless leg syndrome 06/12/2017 Overview (08/12/2019): Overview Note: Restless leg syndrome #[id number]# EXT_ID: [id number] Osteoarthritis of knees, bilateral 06/12/2017 Overview (08/12/2019): Overview Note: Osteoarthritis of knees, bilat #[id number]# EXT_ID: [id number] Knee arthropathy 06/12/2017 Overview (08/12/2019): Overview Note: Knee arthropathy #[id number]# EXT_ID: [id number] Hypertension 01/23/2017 Overview (08/12/2019): Overview Note: Hypertension #[id number]# EXT_ID: [id number] Immunizations Immunization Administration Dates Next Due INFLUENZA, [...] 09/23/2018 6:12 PM EDT Temperature 37.3 C ([id number] F) 09/23/2018 6:12 PM EDT Respiratory Rate [...]
--- OUTSIDE RECORDS SUMMARY | 2025-02-20 15:21 | XMS_ITS | Encounter Summary ---
Author Organization [employer] Address [address] [place] [address] Care Team Providers Care Telescope Operator Name Role Phone Davina Marie MD Primary Care Provider [phone] Encounter Details Date Type Department Care Team ([facility] st Contact Info) Description 11/25/2022 Orders Only [facility] MED [facility] PEDS [address] [place], [place] [phone] Davina Marie MD [address] [place] [address] Social History Tobacco Use Types Packs/Day Years [...] on filedocumented in this encounter Care Teams Telescope Operator Relationship Specialty Start Date End Date Davina Marie MD [address] [place] [address] PCP - General Family Medicine 12/01/19 documented as of this encounter
--- OUTSIDE RECORDS SUMMARY | 2025-02-20 15:22 | XMS_ITS | Encounter Summary ---
Author Organization [employer] Address [address] [place] [address] Care Team Providers Care Health Administration Teacher Name Role Phone Davina Marie MD Primary Care Provider [phone] Encounter Details Date Type Department Care Team (Late st Contact Info) Description 07/31/2022 Orders Only [facility] MEDICINE [address] [place] [address] Davina Marie MD [address] [place] [address] Social History Tobacco Use Types Packs/Day Years [...] Recorded In the last 10 days, have sahra de santiago been in contact with someone who was confirmed or suspected to have Coronavirus/COVID-19? No / Unsure 07/18/2022 9:57 AM EST documented as of this encounter Plan of Treatment Not on file documented as of this encounter Visit Diagnoses Not on filedocumented in this encounter Care Teams Health Administration Teacher Relationship Specialty Start Date End Date Davina Marie MD [address] [place] [address] PCP - General Family Medicine 12/01/19 documented as of this encounter
--- OUTSIDE RECORDS SUMMARY | 2025-02-20 15:22 | XMS_ITS | Clinical Summary ---
Author Organization [employer] Address [address] [facility] [address] [place] [address] Care Team Providers Care Bee Keeper Name Role Phone Davina Marie MD Primary Care Provider [phone] Allergies Active Allergy Reactions Criticality Noted Date Comments Aspirin Low 05/21/2019 Other reaction(s): mild vaginal bleeding Other Reaction(s): mild vaginal bleeding Side Effects Bacitracin Rash Low 05/03/2024 Ibuprofen 10/28/2019 Other Reaction(s): Unknown Lisinopril Cough 07/25/2015 Other Reaction(s): Unknown Medications * This document contains information received from the source organization and may not represent a complete record from that organization. butalbital-acet aminophen-caffe ine 50-325-40 MG tabletIndicatio ns:Intractable headache, unspecified chronicity pattern, unspecified headache type Take 1 tablet by mouth every 6 (six) hours if needed for headaches. 10 tablet 023 Active cloNIDine (Catapres) 0.1 MG tabletIndicatio ns:Anemia, unspecified type TAKE ONE TABLET TWICE DAILY IN THE MORNING AND AT BEDTIME 180 tablet 3 025 Active Ferrous Sulfate (iron) 325 (65 Fe) MG tabletIndicatio ns:Anemia, unspecified type TAKE ONE TABLET EVERY MORNING WITH WATER 90 tablet 3 025 Active ascorbid acid ER (Vitamin C) 500 MG ER capsuleIndicati ons:Anemia, unspecified type TAKE ONE CAPSULE EVERY MORNING WITH WATER AND iron 90 capsule 3 025 Active albuterol (2.5 MG/3ML) 0.083% nebulizer solution Take 3 mL by nebulization 1 (one) time for 1 dose. 75 mL 11 Active albuterol 108 (90 Base) MCG/ACT inhaler Inhale 2 puffs every 4 (four) hours if needed for wheezing. 18 g 2 025 2025 Active fluticasone-sha meterol (Advair) 230-21 MCG/ACT inhaler Inhale 2 puffs in the morning and at bedtime. Rinse mouth with water after use to reduce aftertaste and incidence of candidiasis. Do not swallow. 12 g 11 025 2025 Active rosuvastatin (Crestor) 20 MG tabletIndicatio ns:Constipation , unspecified constipation type TAKE ONE TABLET EVERY MORNING 30 tablet 11 Active docusate sodium (Colace) 100 MG capsuleIndicati ons:Anemia, unspecified type TAKE ONE CAPSULE TWICE DAILY IN THE MORNING AND AT BEDTIME 180 capsule 3 Active topiramate (Topamax) 100 MG tabletIndicatio ns:Acute intractable headache, unspecified headache type TAKE ONE TABLET EVERY NIGHT AT BEDTIME 90 tablet 1 025 Active gabapentin (Neurontin) 300 MG capsule Take 1 capsule by mouth 2 times daily. Active riboflavin (vitamin B2) 100 mg tablet tablet Take 4 tablets by mouth in the morning. Active topiramate (Topamax) 25 MG tablet Take 2 tablets by mouth in the morning. Active dicyclomine (Bentyl) 10 MG capsule Take 1 capsule (10 mg) by mouth 4 times daily. 120 capsule 025 2025 Active cyclobenzaprine (Flexeril) 10 MG tabletIndicatio ns:Generalized abdominal pain Take 1 tablet (10 mg) by mouth 3 times daily. 30 tablet 025 Active Vitamin D, Ergocalciferol, 89719 units capsule TAKE ONE CAPSULE ONCE WEEKLY FRIDAY MORNING 4 capsule 11 025 Active cetirizine (ZyrTEC) 10 MG tabletIndicatio ns:Gastroesopha geal reflux disease without esophagitis TAKE ONE TABLET EVERY NIGHT AT BEDTIME 90 tablet 1 025 Active losartan (Cozaar) 100 MG tablet TAKE ONE TABLET EVERY MORNING 90 tablet 1 025 Active metoprolol tartrate (Lopressor) 50 MG tabletIndicatio ns:Gastroesopha geal reflux disease without esophagitis TAKE ONE TABLET TWICE DAILY IN THE MORNING AND AT BEDTIME WITH FOOD 180 tablet 3 025 Active omeprazole (PriLOSEC) [address] capsuleIndicati ons:Benign hypertension TAKE ONE CAPSULE IN THE MORNING AND EVENING BEFORE MEALS 180 capsule 1 025 Active montelukast (Singulair) 10 MG tablet TAKE ONE TABLET EVERY NIGHT AT BEDTIME 90 tablet 3 Active DULoxetine (Cymbalta) [address] capsule TAKE ONE CAPSULE EVERY NIGHT AT BEDTIME 30 capsule 11 Active Zepbound 2.5 MG/0.5ML solution auto-injector INJECT 0.5ML'S (2.5MG'S) SUBCUTANEOUSLY ONCE PER WEEK 2 mL 3 Active furosemide (Lasix) 20 MG tablet TAKE ONE TABLET IN THE MORNING AND EVENING 60 tablet 3 025 Active amLODIPine (Norvasc) 5 MG tablet TAKE ONE TABLET EVERY MORNING 90 tablet 025 Active Multiple Vitamins-Iron (Tab-A-Bing/Iro n) tablet TAKE ONE TABLET EVERY NIGHT AT BEDTIME 90 tablet 025 Active cyanocobalamin (Vitamin B-12) 500 MCG tabletIndicatio ns:Atrial fibrillation, unspecified type (CMS/HCC) TAKE ONE TABLET EVERY MORNING 90 tablet 025 Active Eliquis 5 MG tabletIndicatio ns:Unspecified atrial fibrillation (CMS/HCC) TAKE ONE TABLET TWICE DAILY IN THE MORNING AND AT BEDTIME 60 tablet 025 Active Eliquis 5 MG tabletIndicatio ns:Unspecified atrial fibrillation (CMS/HCC) TAKE ONE TABLET TWICE DAILY IN THE MORNING AND AT BEDTIME 60 tablet 025 2024 Discontinued Active Problems Problem Noted Date Diagnosed [...] 9:47 AM EDT): Patient will be given Saygaaipyu-Vkqolkmzigmsl-Frzhgkko to treated headaches. GERD with esophagitis 03/07/2023 [...] October 2018: surgery for ovarian torsion at [facility] in [facility] Migraine 08/13/2018 Overview (07/31/2022): Overview Note: Migraine #[id number]# EXT_ID: [id number] Low back pain 10/29/2017 Overview (03/07/2023): Overview Note: Low back pain #[id number]# EXT_ID: [id number] Chest pain 07/08/2017 Restless leg syndrome 06/12/2017 Overview (07/31/2022): Overview Note: Restless leg syndrome #[id number]# EXT_ID: [id number] Osteoarthrosis involving lower leg 06/12/2017 Overview (03/07/2023): Overview Note: Osteoarthritis of knees, bilat #[id number]# EXT_ID: [id number] Encounters Date Type Department Care Team Description 02/20/2025 Orders Only GENERIC EXTERNAL DATA DEPARTMENT Provider, Generic External Data 01/24/2025 Refill [facility] [address] [place] [address] Davina Marie MD Unspecified atrial fibrillation (CMS/HCC) 01/12/2025 Refill [facility] [address] [place] [address] Davina Marie MD Atrial fibrillation, unspecified type (CMS/HCC) 01/07/2025 Telephone [facility] [address] [place] [address] Davina Marie MD No Show 12/31/2024 Patient Outreach [facility] [address] [place] [address] Davina Marie MD 12/23/2024 Orders Only GENERIC EXTERNAL DATA DEPARTMENT Provider, Generic External Data 12/22/2024 Refill [facility] [address] [facility] [place] [address] Davina Marie MD Unspecified atrial fibrillation (CMS/HCC) 12/18/2024 Refill [facility] [address] [facility] [place] [address] Davina Marie MD 12/15/2024 Refill [facility] [address] [place] [address] Davina Marie MD 11/23/2024 Refill [facility] [address] [place] [address] Davina Marie MD Unspecified atrial fibrillation (CMS/HCC) 11/23/2024 Refill [facility] [address] [place] [address] Davina Marie MD Unspecified atrial fibrillation (CMS/HCC) from Last 3 Months Immunizations Immunization Administration Dates Next Due HepB-CpG 03/24/2024,12/13/2023 Influenza Injectable Quadriv alant Preservative Free IIV4 MDCK 04/25/2021 Influenza injectable quadriv alent IIV4 with preservative 05/19/2019,05/17/2016,03/14/2015 Influenza injectable quadriv alent preservative free 02/26/2023,07/18/2022 Influenza, IIV3, injectable 03/02/2014 Influenza, Injectable, MDCK, preservative free 03/23/2024 Influenza, Split (incl. snow fied surface antigen) 07/10/2012 Influenza, seasonal, injecta ble, preservative free 03/25/2018 Pfizer Covid-19 Vaccine 12+ 03/17/2023 Pfizer Covid-19 Vaccine 12+ Bivalent 07/18/2022 Pneumococcal Polysaccharide PPSV23 12/30/2019 Tdap 12/13/2023,10/19/2013 Zoster, Recombinant 03/25/2023,01/09/2023 Social History Tobacco Use [...] Sign Reading Time Taken Comments Blood Pressure 128/84 10/07/2024 2:43 PM EDT Pulse 84 10/07/2024 2:43 PM EDT Temperature 36.6 C (97.8 F) 10/07/2024 2:43 PM EDT Respiratory Rate 16 10/07/2024 2:43 PM EDT Oxygen Saturation 99% 08/26/2024 9:12 AM EDT Inhaled Oxygen Concentration - - Weight 145 kg (320 lb) 10/07/2024 2:43 PM EDT Height 175.3 cm (5' 9 ) 10/07/2024 2:43 PM EDT Body Mass Index 47.26 10/07/2024 2:43 PM EDT Plan of Treatment Health Maintenance Due Date Last Done Comments CT Colonography 1972 Colonoscopy 1972 Colorectal Cancer Screening 1972 FIT DNA/Cologuard 1972 FIT 1972 FOBT 1972 Sigmoidoscopy 1972 Disability Screening 1972 Alcohol/Substance Use Screening 1984 Family Planning (PISQ) 1987 Pap Smear 1993 Cervical Cancer Screening 2002 HPV/Cotest 2002 Mammogram 2012 Pneumococcal Vaccine: 50+ Years (2 of 2 - PCV) 12/29/2020 12/30/2019 Depression Monitoring 03/25/2024 09/24/2023, 024 Influenza Vaccine (#1) 2025 , 02/26/2023, 07/18/2022, Additional history exists SDOH Screening 12/31/2025 12/31/2024 Tobacco Screening 12/31/2025 12/31/2024 Lipid Panel 09/23/2028 09/24/2023, 03/16, 08/20/2021 DTaP/Tdap/Td Vaccines (3 - Td or Tdap) 12/12/2033 12/13/2023, 10/19/2013 RSV Patients and Patients Aged 60 years or older (1 - 1-dose 75+ series) 2047 HIV Screening Completed 01/01/2021, 09/07/2020 Zoster Vaccines Completed 03/25/2023, 01/09/2023 Hepatitis C Screening Completed 04/02/2023 COVID-19 Vaccine Completed 03/23/2024, 07/2022, 07/18/2022, Additional history exists Hepatitis B Vaccines [...] Procedure Name Priority Date/Time Associated Diagnosis Comments COVID-19 ID NOW (CyberSettle) Routine 02/20/2025 2:11 PM EDT INFLUENZA A B2 ID NOW (LARRY) Routine 02/20/2025 2:[address] HEAD WO CONTRAST Routine 12/23/2024 6 :42 PM EDT XR CHEST 2 VIEWS Routine 12/23/2024 6:37 PM EDT HIGH SENSITIVITY TROPONIN I Routine 12/23/2024 6:05 PM EDT MAGNESIUM Routine 12/23/2024 6:05 PM EDT BASIC METABOLIC PANEL Routine 12/23/2024 6:05 PM EDT HEPATIC FUNCTION PANEL Routine 12/23/2024 6:05 PM EDT CBC WITH AUTO DIFFERENTIAL Routine 12/23/2024 6:05 PM EDT SARS COV2/INFLUENZA A/B AND RSV RNA QL NAAT Routine 12/23/2024 6:05 PM EDT LIPID PANEL, STANDARD Routine 09/24/2023 10:04 AM EDT Seizures (CMS/HCC) Longstanding persistent atrial fibrillation (CMS/HCC) HEPATITIS C AB W/REFL TO HCV RNA, QN, PCR Routine 04/02/2023 8:28 AM EDT Seizures (CMS/HCC) ZZZ HISTORICAL HIV AB/AG Routine 01/01/2021 10:40 AM EDT from Last 3 Months or Most Recently Relevant to Health Maintenance Results * Influenza A B2 ID NOW (Larry) (02/20/2025 2:11 PM EDT) IDNOW SERIAL# [id number] [facility] Influenza A Negative Negative [facility] Influenza B2 Negative Negative [facility] Influenza A B2 Note See Note [facility] Comment:The Larry ID NOW In [...] LAB MICROBIOLOGY - GENERAL ORDERABLES Final Result [facility] [address] [place] [phone] * COVID-19 ID NOW (LARRY) (02/20/2025 2:11 PM EDT) IDNOW SERIAL# [id number] [facility] COVID-19 TEST Negative Negative [facility] COVID-19 NOTE See Note [facility] Comment: Results are for the identification of SARS-CoV2 RNA. TheSARS-CoV2 RNA is generally detectable in respiratory samplesduring the acute phase of infection. Positive results areindicative of the presence of SARS-CoV-2 RNA; clinicalcorrelation with patient history and other diagnosticinformation is necessary to determine patient infectionstatus. Positive results do not rule out bacterial infectionor co- infection with other viruses.Testing facilities within the [place] and itsterritories are required to report all positive results [...] use by authorized laboratories.Testing performed on the [employer] ID NOW utilizing NAAT. 02/20/2025 2:11 PM EDT 02/20/2025 2:15 PM EDT us Generic External Data Provider LAB MOLECULAR CLEOPATRA GNOSTICS ORDERABLES Final Result [facility] [address] [place] [phone] * CT Head w/o Contrast (12/23/2024 6:42 PM EDT) Anatomical Region Laterality Modality Head, Neck Computed Tomogra phy 12/23/2024 6:42 PM EDT Narrative 12/23/2024 6:43 PM EDT [address] [address] [address] Scan Report Signed Patient: Tamanna Gutierrez MR#: [id number] : 1970 Acct:[id number] Age/Sex: 54 / F ADM Date: 12/23/24 Loc: HO.ED Attending Dr: Ordering Physician: Elizabeth Bryan Date of Service: 12/23/24 Procedure(s): CT head/brain wo IV con Accession Number(s): [id number] cc: Elizabeth Bryan; Davina Marie MD Report Number: [id number]: Total DLP = 889.00 mGy-cm CLINICAL HISTORY: headache CT head without contrast Comparison: 09/27/24 Findings: No acute hemorrhage. No extra-axial fluid collection. No hydrocephalus, mass-effect or herniation. Yarbrough-white differentiation is maintained. White matter is within normal limits for age. No acute orbital pathology. No acute soft tissue abnormality. No fracture. The visualized paranasal sinuses are predominantly clear. The mastoid air cells are clear. Impression: No acute findings. This document has been electronically signed by: Heather Ambriz MD on 12/23/2024 18:42:21 Dictated By: Heather Trivedi MD Signed By: <Electronically signed by Heather Trivedi MD in OV> 12/23/241842 DD/ 41 TD/TT: 12/23/241841 Sheeting Puller: Procedure Note Donotuseinterpreter, Image - 12/23/[address] [address] [address] Scan Report Signed Patient: Tamanna GutierrezMR#: [id number] : 1970Acct:[id number] Age/Sex: 54 / FADM Date: 12/23/24 Loc: HO.ED Attending Dr: Ordering Physician: Elizabeth Bryan Date of Service: 12/23/24 Procedure(s): CT head/brain wo IV con Accession Number(s): [id number] cc: Elizabeth Bryan; Davina Marie MD Report Number: [id number]: Total DLP = 889.00 mGy-cm CLINICAL HISTORY: headache CT head without contrast Comparison: 09/27/24 Findings: No acute hemorrhage. No extra-axial fluid collection. No hydrocephalus, mass-effect or herniation. Yarbrough-white differentiation is maintained. White matter is within normal limits for age. No acute orbital pathology. No acute soft tissue abnormality. No fracture. The visualized paranasal sinuses are predominantly clear. The mastoid air cells are clear. Impression: No acute findings. This document has been electronically signed by: Heather Ambriz MD on 12/23/2024 18:42:21 Dictated By: Heather Trivedi MD Signed By: <Electronically signed by Heather Trivedi MD in OV> 12/23/241842 DD/ 41 TD/TT: 12/23/241841 Sheeting Puller: [facility] External Provider IMG CT PROCEDURES Edited Result - Final * XR Chest 2 Views (12/23/2024 6:37 PM EDT) Anatomical Region Laterality Modality Chest Radiographic [place] ging 12/23/2024 6:37 PM EDT Narrative 12/23/2024 6:39 PM EDT [address] [address] XRay Report Signed Patient: Tamanna Gutierrez MR#: [id number] : 1970 Acct:[id number] Age/Sex: 54 / F ADM Date: 12/23/24 Loc: HO.ED Attending Dr: Ordering Physician: Elizabeth Bryan Date of Service: 12/23/24 Procedure(s): XR chest 2V Accession Number(s): [id number] cc: Elizabeth Bryan; Davina Marie MD CLINICAL HISTORY: CP Chest Radiographs, 2 views Comparison: 07/04/23 Findings: No cardiomegaly. Normal mediastinal contours. No pneumothorax. No opacity. No pleural effusion. Normal upper abdomen. No acute fracture. Nerve stimulators. Impression: No acute findings. This document has been electronically signed by: Heather Ambriz MD on 12/23/2024 18:37:57 Dictated By: Heather Trivedi MD Signed By: <Electronically signed by Heather Trivedi MD in OV> 12/23/248 DD/ 36 TD/TT: 12/23/241836 Sheeting Puller: Procedure Note Ashleyinterpreter, Image - 12/23/2024 [facility] [address] [place] [address] XRay Report Signed Patient: Tamanna GutierrezMR#: [id number] : 1970Acct:[id number] Age/Sex: 54 / FADM Date: 12/23/24 Loc: HO.ED Attending Dr: Ordering Physician: Elizabeth Bryan Date of Service: 12/23/24 Procedure(s): XR chest 2V Accession Number(s): [id number] cc: Elizabeth Bryan; Davina Marie MD CLINICAL HISTORY: CP Chest Radiographs, 2 views Comparison: 07/04/23 Findings: No cardiomegaly. Normal mediastinal contours. No pneumothorax. No opacity. No pleural effusion. Normal upper abdomen. No acute fracture. Nerve stimulators. Impression: No acute findings. This document has been electronically signed by: Heather Ambriz MD on 12/23/2024 18:37:57 Dictated By: Heather Trivedi MD Signed By: <Electronically signed by Heather Trivedi MD in OV> 12/23/241837 DD/ 36 TD/TT: 12/23/241836 Sheeting Puller: [facility] External Provider IMG XR PROCEDURES Edited Result - Final * High Sensitivity Troponin I (12/23/2024 6:05 PM EDT) TROPONIN I HIGH SENSITIVITY <2.7 <3.5 - 17.0 ng/L [facility] Comment:The Larry high sens itivity Troponin-I results should beused in conjunction with other diagnostic information suchas ECG, clinical observations and information, and patientsymptoms to aid in the diagnosis of [place]. 12/23/2024 6:05 PM EDT 12/23/2024 6:13 PM EDT Generic External Data Provider LAB BLOOD ORDERAB LES Final Result [facility] [address] [place] [phone] * SARS-CoV-2 RNA, Influenza A/B, and RSV RNA, Ql NAAT (12/23/2024 6:05 PM EDT) Pathologist [facility] Influenza A PCR NEGATIVE Negative [facility] Influenza B PCR NEGATIVE Negative [facility] Resp Syncy Virus RNA Qual PCR NEGATIVE Negative [facility] SARS COV2 PCR NEGATIVE Negative [facility] Comment:All test results mus t be correlated with clinical findings.Negative results do not preclude SARS-CoV2, influenza Avirus, influenza B virus and/or RSV infectionand should not be used as the sole basis for treatment orother patient management decisions. Negative results must becombined with clinical observations, patient history, andepidemiological information.This test has not been evaluated for monitoring treatment ofinfection.This test has been authorized by the FDA under an EmergencyUse Authorization (EUA) for use by authorized laboratories.Testing performed on the [employer] GeneXpert utilizingreal-time RT-PCR.All SARS CoV2 and positive influenza A/B results arereported to [facility]. 12/23/2024 6:05 PM EDT 12/23/2024 6:13 PM EDT Generic External Data Provider LAB MICROBIOLOGY - GENERAL ORDERABLES Final Result Performing Organization Address [facility] Co de Phone Number [facility] [address] [place] [phone] * (ABNORMAL) CBC auto differential (12/23/2024 6:05 PM EDT) Pathologist [facility] White Blood Count 17.1(H) 4.8 - 10.8 X10*3/uL [facility] Red Blood Count 4.34 4.20 - 5.50 X10*6/uL [facility] Hemoglobin 12.8 12.0 - 16.0 g/dl [facility] Hematocrit 38.7 37.0 - 47.0 % [facility] Mean Corpuscular Volume 89.2 80.0 - 98.0 fL [facility] Mean Corpuscular Hemoglobin 29.5 27.0 - 33.0 pg [facility] Mean Corpuscular HGB Conc 33.1 31.0 - 35.0 g/dl [facility] Red Cell Distribution Width 14.1 11.0 - 16.0 % [facility] Platelet Count 430(H) 160 - 400 X10*3/uL [facility] Mean Platelet Volume 9.8 9.4 - 12.3 fL [facility] Neutrophils Percent Auto 72.3 45 - 73 % [facility] Imm Gran Pct Auto 0.4 0.0 - 0.4 % [facility] Lymphocytes Percent Auto 19.9(L) 20 - 40 % [facility] Monocytes Percent Auto 5.3 2 - 11 % [facility] Eosinophils Percent Auto 1.8 0 - 4 % [facility] Basophils Percent Auto 0.3 0 - 2 % [facility] NRBC Pct Auto 0.0 0.0 - 0.2 /100WBC [facility] Neutrophils Absolute Auto 12.4(H) 2.0 - 8.3 x10*3/uL [facility] Imm Gran Abs Auto 0.06(H) 0.00 - 0.03 X10*3/uL [facility] Lymphocytes Absolute Auto 3.4 1.2 - 4.9 X10*3/uL [facility] Monocytes Absolute Auto 0.9 0.1 - 1.2 X10*3/uL [facility] Eosinophils Absolute Auto 0.3 0.0 - 0.4 X10*3/uL [facility] Basophils Absolute Auto 0.1 0.0 - 0.2 X10*3/uL [facility] NRBC Abs Auto 0.000 0.0 - 0.012 X10*3/uL [facility] 12/23/2024 6:05 PM EDT 12/23/2024 6:13 PM EDT us Generic External Data Provider LAB BLOOD ORDERAB LES Final Result Performing Organization Address [facility]/ZIP Co de Phone Number [facility] [address] [place] [phone] * Magnesium (12/23/2024 6:05 PM EDT) [facility] Magnesium 2.3 1.6 - 2.6 mg/dL [facility] 12/23/2024 6:05 PM EDT 12/23/2024 6:13 PM EDT Generic External Data Provider LAB BLOOD ORDERAB LES Final Result Performing Organization Address [facility] Phone Number [facility] [address] [place] [phone] * (ABNORMAL) Hepatic Function Panel (12/23/2024 6:05 PM EDT) [facility] Bilirubin, Total 0.3 0.0 - 1.0 mg/dL [facility] Bilirubin, Direct 0.2 0.0 - 0.5 mg/dL [facility] Aspartate Amino Transferase 18 5 - 31 U/L [facility] Alanine Aminotransferase 21 0 - 31 U/L [facility] Total Protein 7.9 6.5 - 8.0 g/dL [facility] Albumin Level 4.5 3.5 - 5.0 g/dL [facility] Alkaline Phosphatase 141(H) 39 - 117 U/L [facility] 12/23/2024 6:05 PM EDT 12/23/2024 6:13 PM EDT Generic External Data Provider LAB BLOOD ORDERAB LES Final Result Performing Organization Address [facility] Co de Phone Number [facility] [address] [place] [phone] * (ABNORMAL) Basic Metabolic Panel (12/23/2024 6:05 PM EDT) [facility] Sodium 141 135 - 145 mmol/L [facility] Potassium 4.0 3.3 - 5.1 mmol/L [facility] Chloride 105 96 - 108 mmol/L [facility] Carbon Dioxide 26 22 - 29 mmol/L [facility] Anion Gap 14 12 - 20 [facility] Urea Nitrogen (BUN) 16 9 - 16 mg/dL [facility] Creatinine, Serum 0.83 0.5 - 1.4 mg/dL [facility] Creatinine Clr Calc Pharmacy 121.6 [facility] Comment:Provided height and weight: 175.26 cm,143.8 kg.eGFR (calculated from the MDRD study equation) and eCrCl(calculated from the Cockcroft-Gault equation) are based ondifferent parameters and may not yield comparable results.If eCrCl result is absurd, please check patient'sheight/weight. Estimated Glomerular Filt Rate >60 [facility] Comment:Chronic Kidney Disea se: Estimated GFR < 60 mL/min/1.08j8Plrymj Kidney Disease: Estimated GFR < 15 mL/min/1.73m2 Glucose 117(H) 60 - 115 mg/dL [facility] Calcium 9.2 8.4 - 10.2 mg/dL [facility] 12/23/2024 6:05 PM EDT 12/23/2024 6:13 PM EDT us Generic External Data Provider LAB BLOOD ORDERAB LES Final Result [facility] [address] [place] [phone] * (ABNORMAL) Lipid Panel, Standard (09/24/2023 10:04 AM EDT) Triglycerides 183(H) <150 mg/dL [facility] Comment:Desirable Triglyceri de: less than 150 mg/dLBorderline High Triglyceride 150-199 mg/dLHigh Triglyceride: 200-499 mg/dLVery High Triglyceride: greater than or equal to 5OO mg/dL Cholesterol 139 <200 mg/dL [facility] Comment:Desirable Cholestero l: less than 200 mg/dLBorderline High Cholesterol: 200-239 mg/dLHigh Cholesterol: greater than 239 mg/dL LDL Cholesterol Calculated 60 <100 mg/dL [facility] Comment:Desirable LDL: less than 100 mg/dLNear Optimal/Above Optimal LDL: 110- 129 mg/dLBorderline High LDL: 130-159 mg/dLHigh LDL: 160-189 mg/dLVery High LDL: greater than or equal to 190 mg/dL HDL Cholesterol 43 >40 mg/dL [facility] Comment:Desirable HDL: great er than 40 mg/dL Note: This HDL assay may give artificially low results in patients with liver disease. Blood Venous blood specimen / Unknown 09/24/2023 10:04 AM EDT 09/24/2023 2:32 PM EDT Davina Marie MD LAB BLOOD ORDERABLES Final Resul t Performing Organization Address [facility] Co de Phone Number [facility] [address] [place] [phone] * Hepatitis C Antibody with Reflex to HCV, RNA, Quantitative, Real-Time PCR (04/02/2023 8:28 AM EDT) Hepatitis C Antibody Nonreactive Nonreactive [facility] Comment:Antibodies to HCV no t detected; does not exclude early acuteHCV infection. Blood Venous blood specimen / Unknown 04/02/2023 8:28 AM EDT 04/02/2023 8:36 AM EDT Davina Marie MD LAB BLOOD ORDERABLES Final Resul t Performing Organization Address [facility] Co de Phone Number [facility] [address] [place] [phone] * HIV AB/AG (01/01/2021 10:40 AM EDT) HIV AB/AG Nonreactive Nonreactive [facility] Comment: HIV-1 p24 Ag and/or HIV-1/HIV-2 Ab not detected. A test result that is nonreactive does not exclude the possibility of exposure to or infection with HIV-1 and/or HIV-2. Nonreactive results in this assay for individuals with prior exposure to HIV-1 and/or HIV-2 may be due to antigen and antibody levels that are below the limit of detection of this assay. The Larry Belt Press Operator HIV Ag/Ab Combo assay result and supplemental assay results should be interpreted in conjunction with the patient's clinical presentation, history and other laboratory results. If the results are inconsistent with clinical evidence, additional testing is suggested to confirm the result. 01/01/2021 10:4 0 AM EDT us Ej Allred MD HISTORICAL/NON ORDERAB [facility] LAB[facility] Final Result [facility] Anywhere [address] from Last 3 Months or Most Recently Relevant to Health Maintenance Insurance [facility] MEDICARE Care Teams Bee Keeper Relationship Specialty Start Date End Date Davina Marie MD [address] [place] [id number] PCP - General Family Medicine 12/01/19
--- OUTSIDE RECORDS SUMMARY | 2025-02-20 15:22 | XMS_ITS | Encounter Summary ---
Author Organization [employer] Address [address] [place] [address] Care Team Providers Care Application Support Lead Name Role Phone Davina Marie MD Primary Care Provider [phone] Encounter Details Date Type Department Care Team (Late st Contact Info) Description 05/23/2022 Telephone [facility] [address] [place], [place] [phone] Davina Marie MD [address] [place] [address] Social History Tobacco Use Types Packs/Day Years [...] on filedocumented in this encounter Care Teams Application Support Lead Relationship Specialty Start Date End Date Davina Marie MD [address] [place] [phone] PCP - General Family Medicine 12/01/19 documented as of this encounter
--- OUTSIDE RECORDS SUMMARY | 2025-02-20 15:22 | XMS_ITS | Encounter Summary ---
Author Organization [employer] Address [address] [place] [address] Care Team Providers Care Boarder Steam Name Role Phone Davina Marie MD Primary Care Provider [phone] Reason for Visit * Reason Comments Med Refill Encounter Details Date Type Department Care Team ([facility] st Contact Info) Description 10/23/2023 Refill [facility] [address] [place], [place] [phone] Davina Marie MD [address] [place] [address] Social History Tobacco Use Types Packs/Day Years [...] documented as of this encounter Care Teams Boarder Steam Relationship Specialty Start Date End Date Davina Marie MD [address] [place] [phone] PCP - General Family Medicine 12/01/19 documented as of this encounter
--- OUTSIDE RECORDS SUMMARY | 2025-02-20 15:22 | XMS_ITS | Encounter Summary ---
Author Organization [employer] Address [address] [place] [address] Care Team Providers Care Screw Eye Assembler Name Role Phone Davina Marie MD Primary Care Provider [phone] Reason for Visit * Reason Comments Med Refill Encounter Details Date Type Department Care Team (Late st Contact Info) Description 07/03/2022 Refill [facility] [address] [place] [address] Davina Marie MD [address] [place] [address] Anemia, unspecified type Social History Tobacco Use [...] type documented in this encounter Care Teams Screw Eye Assembler Relationship Specialty Start Date End Date Davina Marie MD [address] [place] [address] PCP - General Family Medicine 12/01/19 documented as of this encounter
--- OUTSIDE RECORDS SUMMARY | 2025-02-20 15:22 | XMS_ITS | Encounter Summary ---
Author Organization [email or web address] Address [address] [place] [address] Care Team Providers Care Casting Room Operator Name Role Phone Davina Marie MD Primary Care Provider [phone] Reason for Visit * Reason Comments Med Refill Encounter Details Date Type Department Care Team ([facility] st Contact Info) Description 11/23/2024 Refill [facility] [address] [place] [address] Davina Marie MD [address] [place] [address] Unspecified atrial fibrillation (CMS/HCC) Social History Tobacco Use Types Packs/Day Years [...] as of this encounter Visit Diagnoses Diagnosis Unspecified atrial fibrillation (CMS/HCC) documented in this encounter Additional Health Concerns Assessment Noted Time PHQ-9 Depression Total Score: 11 024 9:53 AM EDT documented as of this encounter Care Teams Casting Room Operator Relationship Specialty Start Date End Date Davina Marie MD [address] [place] [address] PCP - General Family Medicine 12/01/19 documented as of this encounter
--- OUTSIDE RECORDS SUMMARY | 2025-02-20 15:22 | XMS_ITS | Encounter Summary ---
Author Organization [employer] Address [address] [place] [address] Care Team Providers Care Record Clerk Salesperson Name Role Phone Davina Marie MD Primary Care Provider [phone] Encounter Details Date Type Department Care Team (Late st Contact Info) Description 07/30/2022 Orders Only [facility] [address] [place], [place] [phone] Oumou Carney LPN Social History Tobacco Use [...] on filedocumented in this encounter Care Teams Record Clerk Salesperson Relationship Specialty Start Date End Date Davina Marie MD [address] [place] [address] PCP - General Family Medicine 12/01/19 documented as of this encounter
--- OUTSIDE RECORDS SUMMARY | 2025-02-20 15:22 | XMS_ITS | Clinical Summary ---
Author Organization [facility] Address [address] [place] [address] Phone Care Team Providers Care Sand Bobber Name Role Phone Davina Marie MD Primary Care Provider [phone] Social History Tobacco Use Types Packs/Day Years Used Date Smoking Tobacco: Never Assessed Sex and Gender Information Value Date Recorded Sex Assigned at Not on file Legal Sex Male 2:32 PM EDT Gender Identity Not on file Sexual Orientation Not on file Plan of Treatment Not on file Medical Devices Not on file Insurance [employer] [place] [address] [place] [address] [employer] Care Teams Sand Bobber Relationship Specialty Start Date End Date Davina Marie MD [address] [place] [id number] PCP - General Family Medicine 02/01/21 Additional Source Comments The information contained in this document represents components of the legal health record. It is not the complete legal health record.[facility]
[2025-02-20 15:57] VITALS: BP 144/84; PULSE 77; RESP 16; TEMP 36.6; O2SAT 97
[2025-02-20 16:06] VITALS: BP 144/84; PULSE 77; RESP 16; TEMP 36.6; O2SAT 97
== END 2025-02-20 16:13 | disposition home or self-care (01) ==
PROVIDERS: Physician Assistant; Emergency Provider Emergency Medicine; PCP Student in an Organized Health Care Education/Training Program
DX: M25.562 Pain in left knee (principal); M25.561 Pain in right knee; J45.909 Unspecified asthma, uncomplicated; R51.9 Headache, unspecified; I10 Essential (primary) hypertension; M17.0 Bilateral primary osteoarthritis of knee; Z79.899 Other long term (current) drug therapy
CPT/HCPCS: 71045; 73564; 87502; 87635; 99283; J8540

== ENCOUNTER → 2025-02-20 13:48 | Outpatient (BNV) | payer MEDICARE, MEDICAID, SELFPAY | PROVIDERS: Emergency Provider Emergency Medicine; PCP Student in an Organized Health Care Education/Training Program; Visit Provider Radiology Diagnostic Radiology | DX: M17.0 Bilateral primary osteoarthritis of knee (principal); M76.891 Other specified enthesopathies of right lower limb, excluding foot; M76.892 Other specified enthesopathies of left lower limb, excluding foot; R05.9 Cough, unspecified; R06.2 Wheezing | CPT/HCPCS: 71045; 73564 ==

== ENCOUNTER 2025-03-04 22:14 | Emergency (ER) | payer MEDICARE, MEDICAID, SELFPAY ==
--- NOTE | ~2025-03-04 | XR_ITS ---
CLINICAL HISTORY: epigastric pain with GI sxs, rule out aspiration 2 view chest x-ray Comparison: 02/20/2025 Findings: Lungs are clear without acute infiltrates. No pneumothorax. Heart size normal. No acute bony abnormalities. Pain control stimulator leads. Impression: No acute processes This document has been electronically signed by: Rene Perez MD on 03/05/2025 00:10:59
--- NOTE | 2025-03-04 22:25 | ED.ABDPAIN ---
HPI - Abdominal Pain General Chief Complaint: Nausea/Vomiting/Diarrhea Stated Complaint: food posioning started yest Time Seen by Provider: 03/05/25 02:36 Source: patient Limitations: no limitations History of Present Illness HPI narrative: 54 y/o F with hx of asthma, atrial fibrillation on apixiban, CVA, neuropathy, degenerative disc disease, cervical positioned spinal cord stimulator, HTN, HLD, seizures, SANDEE on CPAP, migraines, anemia, chronic pain syndrome, GERD, who presents with nausea vomiting diarrhea since yesterday. Patient states she developed symptoms after eating [place] food. She has had multiple episodes of vomiting and diarrhea today. Overall generalized malaise, body aches. Denies fever. Denies sick contacts with similar symptoms. Denies recent travel, hospitalization or use of antibiotics. Related Data Home Medications ?Medication ?Instructions ?Recorded ?Confirmed cetirizine 10 mg tablet 10 mg PO BEDTIME 04/27/20 09/27/24 duloxetine 30 mg capsule,delayed 30 mg PO BEDTIME 04/27/20 09/27/24 release metoprolol tartrate 50 mg tablet 50 mg PO BID 04/27/20 09/27/24 montelukast 10 mg tablet 10 mg PO BEDTIME 04/27/20 09/27/24 clonidine HCl 0.1 mg tablet 0.1 mg PO BID 06/05/20 09/27/24 apixaban 5 mg tablet (Eliquis) 5 mg PO BID 06/28/20 09/27/24 losartan 100 mg tablet 100 mg PO DAILY 06/28/20 09/27/24 furosemide 20 mg tablet 20 mg PO BID 12/25/21 09/27/24 ergocalciferol (vitamin D2) 1,250 1,250 mcg PO FR@0900 01/08/22 09/27/24 mcg (50,000 unit) capsule amlodipine 5 mg tablet 5 mg PO DAILY 09/24/22 09/27/24 ascorbic acid (vitamin C) 500 mg 500 mg PO DAILY 10/06/22 09/27/24 capsule,extended release omeprazole 40 mg capsule,delayed 40 mg PO BID 01/09/23 09/27/24 release cyanocobalamin (vitamin B-12) 500 500 mcg PO DAILY 12/16/23 09/27/24 mcg tablet (Vitamin B-12) rosuvastatin 20 mg tablet 20 mg PO DAILY 12/16/23 09/27/24 multivitamin-iron sulfate 15 1 tab PO BEDTIME 04/15/24 09/27/24 mg-folic acid 400 mcg tablet (Tab-A-Bing Multivitamin w-iron) albuterol sulfate 2.5 mg/3 mL 2.5 mg inhalation Q4H PRN 09/27/24 09/27/24 (0.083 %) solution for nebulization Respiratory Distress albuterol sulfate 90 mcg/actuation 2 puff inhalation Q4-6H PRN 09/27/24 09/27/24 aerosol inhaler Respiratory Distress docusate sodium 100 mg capsule 100 mg PO BID 09/27/24 09/27/24 ferrous sulfate 325 mg (65 mg 325 mg PO DAILY 09/27/24 09/27/24 iron) tablet fluticasone propionate 230 2 puff inhalation BID 09/27/24 09/27/24 mcg-salmeterol 21 mcg/actuation HFA inhaler (Advair HFA) tirzepatide (weight loss) 2.5 2.5 mg subcut FR@1000 09/27/24 09/27/24 mg/0.5 mL subcutaneous pen injector (Zepbound) Previous Rx's ?Medication ?Instructions ?Recorded naloxone 4 mg/actuation nasal spray 4 mg intranasal Q2M PRN opioid 12/19/23 overdose 1 day #2 ea topiramate 100 mg tablet 100 mg PO BEDTIME 30 days #30 tabs 09/10/24 gabapentin 300 mg capsule 300 mg PO BID 30 days #60 caps 10/11/24 magnesium oxide 400 mg (241.3 mg 400 mg PO BEDTIME 90 days #90 tabs 11/26/24 magnesium) tablet pyridoxine (vitamin B6) 50 mg 50 mg PO BID 30 days #60 tabs 11/26/24 tablet riboflavin (vitamin B2) 400 mg 400 mg PO DAILY 90 days #90 tabs 11/26/24 tablet erenumab-aooe 140 mg/mL 140 mg subcut Q30D 30 days #1 mL 12/03/24 subcutaneous auto-injector (Aimovig Autoinjector) rimegepant 75 mg disintegrating 75 mg PO DAILY PRN migraine 01/10/25 tablet (Nurtec ODT) headache 30 days #16 tabs topiramate 25 mg tablet 50 mg (2 x 25 mg) PO DAILY 30 days 01/19/25 #60 tabs prednisone 20 mg tablet 40 mg (2 x 20 mg) PO DAILY 5 days 02/20/25 #10 tabs dicyclomine 20 mg tablet 20 mg PO BID PRN abdominal pain #7 03/05/25 tabs ondansetron 4 mg disintegrating 4 mg PO Q8H PRN nausea and 03/05/25 tablet vomiting #10 tabs sucralfate 100 mg/mL oral 10 ml PO QID PRN indigestion #300 03/05/25 suspension (Carafate) mL Allergies Allergy/AdvReac Type Severity Reaction Status Date / Time bacitracin Allergy Mild Rash Verified 03/04/25 22:30 ibuprofen Allergy Unknown Verified 03/04/25 22:30 lisinopril Allergy Unknown Verified 03/04/25 22:30 aspirin AdvReac Mild mild Verified 03/04/25 22:30 vaginal bleeding Review of Systems Review of Systems Yes all other systems are reviewed and are negative Constitutional: Denies fatigue, Denies fever(s) and Reports malaise Cardiovascular: Denies chest pain and Denies dyspnea Respiratory: Denies cough and Denies dyspnea Gastrointestinal: Reports GI cramping, Reports diarrhea, Reports nausea and Reports vomiting Musculoskeletal: Reports myalgias Endocrine: Denies fatigue PMFSH Past Medical History Attestation statement: The following information was validated with the patient. Medical History Arthritis Peptic ulcer GERD (gastroesophageal reflux disease) CVA (cerebral vascular accident) SOB (shortness of breath) Atrial fibrillation Seizure On beta christina at home On anticoagulant therapy SANDEE (obstructive sleep apnea) Morbid obesity with BMI of 45.0-49.9, adult Gout High cholesterol Hypertension COVID-19 Osteoarthritis of knees, bilateral History of gastric ulcer Left inguinal hernia (~2013) Lab test positive for detection of COVID-19 virus (~11/2019) Bleeding disorder Asthma Surgical History History of back surgery S/P partial hysterectomy (11/10/18) H/O umbilical hernia repair (07/25/06) Hx of endoscopy Family History Family History Father Hx of diabetes insipidus Mother No problems noted. Social History Social History Household Members: Family Housing: Condominium Are you a primary primary care pediatrician to a significant other at home: No Do you presently have visiting nurse or other home services: No Alcohol intake: never Comment: counts correct Patient Tobacco Use Status: Never used Tobacco Smoked in Last 30 Days: No e-Cigarette/Vaping Use: Never Used Second Hand Smoke Exposure: No Use of substances other than those prescribed or required for medical reasons: No Advance Directives: Yes Advance Directives on File: Yes Advance Directives Date on File: 01/24/21 Do you have a plan to hurt others: No Plan service: No Current occupational status: unemployed Current occupation: right handed Physical Exam ED Vital Signs: Vital Signs - 24 hr 03/04/25 22:28 03/05/25 02:37 03/05/25 04:39 Temperature 97.8 F 97.9 F Pulse Rate 83 77 86 Respiratory Rate 20 18 14 Blood Pressure 145/91 H 150/88 H 141/67 H Pulse Oximetry 96 99 97 Oxygen Delivery Method Room Air Room Air Room Air BMI result Body Mass Index 44.3 Const Other: Alert well-appearing Orientation/consciousness: patient oriented x3 Resp Effort & Inspection: normal respiratory effort Cardio Other: Normal peripheral perfusion GI Other: Abdomen is soft, obese, nontender to palpation no guarding with deep palpation Skin Other: Warm dry no rash Neuro General: patient oriented x3, gait normal, no focal motor deficits and CN's II-XI intact bilaterally Psych Other: Cooperative Course Course Course Narrative: This is a RME preformed in triage by Zoey Butler PA-C. Date: 03/04/25, time 1025 pm. Patient presents with abd pain, concern for food poisoning. Yesterday had setswana (only her had the noodles), n/v/d, sweating, cannot tolerate fluids, she cannot tell if she is peeing or not everything is coming out . she has not noticed any blood. has cough too (thinks its cause of throwing up). Work UP: abd labs, UA, COVID, FLU, gave zofran Will defer full ROS and PE to treating provider. Patient will continued to be monitored in the interim. Medical Decision Making Medical Decision Making MDM Narrative: 54 y/o F with hx of asthma, atrial fibrillation on apixiban, CVA, neuropathy, degenerative disc disease, cervical positioned spinal cord stimulator, HTN, HLD, seizures, SANDEE on CPAP, migraines, anemia, chronic pain syndrome, GERD, who presents with nausea vomiting diarrhea since yesterday. Patient states she developed symptoms after eating [place] food. She has had multiple episodes of vomiting and diarrhea today. Overall generalized malaise, body aches. Denies fever. Denies sick contacts with similar symptoms. Denies recent travel, hospitalization or use of antibiotics. No relevant chronic issues History: Per patient I have considered the following differential diagnoses: Traveler's diarrhea, C diff, viral gastroenteritis, food poisoning, diverticulitis Plan: Patient here with the acute onset nausea vomiting diarrhea, with a a very normal abdominal exam, she does not require imaging. Screening labs completed from triage, adding on a viral panel. This is likely viral gastroenteritis. She has no risk factors for traveler's diarrhea or C diff. She has no focal left lower quadrant pain to suggest diverticulitis. We will treat symptomatically. I have independently reviewed the following tests: Labs: Leukocytosis of 18 without left shift, not anemic, chronic thrombocytosis, no electrolyte abnormality, viral panel negative, Differential Diagnosis Differential Diagnoses: The differential diagnosis associated with the presentation includes See medical decision-making Admission/Observation Consideration of admission/observation: Escalation of care including admission/observation considered Not applicable Lab Data [facility] Lab Attestation statement: I reviewed the patient's lab results. 03/04/25 22:40 03/04/25 22:40 Labs: Lab Results 03/04/25 Range/Units 22:40 WBC 18.1 H (4.8-10.8) X10*3/uL RBC 4.53 (4.20-5.50) X10*6/uL Hgb 13.4 (12.0-16.0) g/dl Hct 39.9 (37.0-47.0) % MCV 88.1 (80.0-98.0) fL MCH 29.6 (27.0-33.0) pg MCHC 33.6 (31.0-35.0) g/dl RDW 14.5 (11.0-16.0) % Plt Count 464 H (160-400) X10*3/uL MPV 10.0 (9.4-12.3) fL Immature Gran % (Auto) 0.4 (0.0-0.4) % Neut % (Auto) 70.7 (45-73) % Lymph % (Auto) 22.2 (20-40) % [place]ague % (Auto) 4.5 (2-11) % Eos % (Auto) 1.9 (0-4) % Baso % (Auto) 0.3 (0-2) % Lymph # (Auto) 4.0 (1.2-4.9) X10*3/uL [place] # (Auto) 0.8 (0.1-1.2) X10*3/uL Eos # (Auto) 0.3 (0.0-0.4) X10*3/uL Baso # (Auto) 0.1 (0.0-0.2) X10*3/uL Abs Immat Gran (auto) 0.08 H (0.00-0.03) X10*3/uL Absolute Neuts (auto) 12.8 H (2.0-8.3) x10*3/uL Absolute Nucleated RBC 0.000 (0.0-0.012) X10*3/uL Nucleated RBC % (auto) 0.0 (0.0-0.2) /100WBC Sodium 142 (135-145) mmol/L Potassium 4.2 (3.3-5.1) mmol/L Chloride 109 H (96-108) mmol/L Carbon Dioxide 24 (22-29) mmol/L Anion Gap 13 (12-20) BUN 17 H (9-16) mg/dL Creatinine 0.76 (0.5-1.4) mg/dL Estim Creat Clear Calc 128.7 Estimated GFR > 60 Random Glucose 120 H (60-115) mg/dL Calcium 9.4 (8.4-10.2) mg/dL Magnesium 2.1 (1.6-2.6) mg/dL Total Bilirubin 0.5 (0.0-1.0) mg/dL AST 36 H (5-31) U/L ALT 31 (0-31) U/L Alkaline Phosphatase 135 H (39-117) U/L Total Protein 8.0 (6.5-8.0) g/dL Albumin 4.5 (3.5-5.0) g/dL Lipase 8 (8-78) U/L COVID-19 (TALIB) Negative (Negative) COVID-19 Clin Com See Note Influenza Type A (CHANTAL) Negative (Negative) Influenza Type B (CHANTAL) Negative (Negative) Influenza A & B Note See Note Medications Administered Discontinued Medications Generic Name Dose Route Start Last Admin Trade Name Freq PRN Reason Stop Dose Admin Al Hydroxide/Mg Hydroxide 30 ml 03/05/25 04:32 03/05/25 04:46 Magnesium Hydrox/Alum Hydrox 30 Ml Oral.Susp PO 03/05/25 04:33 30 ml ONCE ONE Administration Dicyclomine HCl 20 mg 03/05/25 03:19 03/05/25 04:00 Dicyclomine Hcl 10 Mg Capsule PO 03/05/25 03:20 20 mg ONCE ONE Administration Sodium Chloride 1,000 mls @ 999 mls/hr 03/05/25 02:45 03/05/25 02:54 Ns IV 03/05/25 03:45 999 mls/hr .Q1H1M ISMA Administration Ketorolac Tromethamine 15 mg 03/05/25 03:19 03/05/25 04:00 Ketorolac Tromethamine 15 Mg/Ml Vial IVPUSH 03/05/25 03:20 15 mg ONCE ONE Administration Lidocaine HCl 15 ml 03/05/25 04:32 03/05/25 04:46 Lidocaine Hcl Viscous 2 % 15 Ml Solution MUCOUS MEM 03/05/25 04:33 15 ml ONCE ONE Administration Ondansetron HCl 4 mg 03/04/25 22:28 03/04/25 22:32 Ondansetron Odt 4 Mg Tab.Rapdis TRANSLINGU 03/04/25 22:29 4 mg ONCE ONE Administration Ondansetron HCl 4 mg 03/05/25 02:36 03/05/25 02:54 Ondansetron Hcl 4 Mg/2 Ml Vial IVPUSH 03/05/25 02:37 4 mg ONCE ONE Administration Discharge Plan Discharge Clinical Impression: Viral gastroenteritis, Pharyngitis Patient Disposition: Home, Self-Care Instructions: Pharyngitis (ED), Viral Syndrome (ED) Additional Instructions: All of your screening labs were overall normal, you were tested for COVID influenza a and B, the viral panel was negative. You likely have another virus has been circulating within the community. These viruses can cause both respiratory and gastrointestinal symptoms. See home care instructions. Uses Zofran as needed for nausea. Use the dicyclomine as needed for abdominal cramping and/or diarrhea. Use the Carafate as needed for upper abdominal discomfort. You can use warm saltwater gargles to help your throat pain. Follow up with your primary care provider as needed. Prescriptions: New ondansetron 4 mg tablet,disintegrating 4 mg PO Q8H PRN (Reason: nausea and vomiting) Qty: 10 0RF dicyclomine 20 mg tablet 20 mg PO BID PRN (Reason: abdominal pain) Qty: 7 0RF sucralfate [Carafate] 100 mg/mL suspension 10 ml PO QID PRN (Reason: indigestion) Qty: 300 0RF Rx Instructions: swish in mouth and swallow; use after food/drink No Action naloxone 4 mg/actuation spray,non-aerosol 4 mg intranasal Q2M PRN (Reason: opioid overdose) 1 Days Qty: 2 4RF Rx Instructions: spray 1 dose into ONE nostril; alternate nostrils w each dose until help arrives topiramate 100 mg tablet 100 mg PO BEDTIME 30 Days Qty: 30 6RF gabapentin 300 mg capsule 300 mg PO BID 30 Days Qty: 60 5RF Aimovig Autoinjector 140 mg/mL auto-injector 140 mg subcut Q30D 30 Days Qty: 1 11RF Rx Instructions: PA APPROVED 11/19/24-until further notice topiramate 25 mg tablet 50 mg PO DAILY 30 Days Qty: 60 6RF Rx Instructions: continues topiramate 100mg qhs prednisone 20 mg tablet 40 mg PO DAILY 5 Days Qty: 10 0RF ascorbic acid (vitamin C) 500 mg capsule, extended release 500 mg PO DAILY Rx Instructions: take with iron cyanocobalamin (vitamin B-12) [Vitamin B-12] 500 mcg Tablet 500 mcg PO DAILY rosuvastatin 20 mg Tablet 20 mg PO DAILY docusate sodium 100 mg Capsule 100 mg PO BID ferrous sulfate 325 mg (65 mg iron) Tablet 325 mg PO DAILY fluticasone propion-salmeterol [Advair HFA] 230-21 mcg/actuation Hfa Aerosol Inhaler 2 puff INHALATION BID albuterol sulfate 2.5 mg /3 mL (0.083 %) Solution For Nebulization 2.5 mg inhalation Q4H PRN (Reason: Respiratory Distress) albuterol sulfate 90 mcg/actuation Hfa Aerosol Inhaler 2 puff INHALATION Q4-6H PRN (Reason: Respiratory Distress) Zepbound 2.5 mg/0.5 mL Pen Injector 2.5 mg SUBCUT FR@1000 Rx Instructions: for 4 weeks clonidine HCl 0.1 mg tablet 0.1 mg PO BID cetirizine 10 mg tablet 10 mg PO BEDTIME duloxetine 30 mg capsule,delayed release(DR/EC) 30 mg PO BEDTIME montelukast 10 mg tablet 10 mg PO BEDTIME metoprolol tartrate 50 mg tablet 50 mg PO BID Eliquis 5 mg tablet 5 mg PO BID losartan 100 mg tablet 100 mg PO DAILY ergocalciferol (vitamin D2) 1,250 mcg (50,000 unit) capsule 1,250 mcg PO FR@0900 furosemide 20 mg tablet 20 mg PO BID amlodipine 5 mg tablet 5 mg PO DAILY omeprazole 40 mg capsule,delayed release(DR/EC) 40 mg PO BID Tab-A-Bing Multivitamin w-iron 15 mg iron- 400 mcg tablet 1 tab PO BEDTIME riboflavin (vitamin B2) 400 mg tablet 400 mg PO DAILY 90 Days Qty: 90 3RF magnesium oxide 400 mg (241.3 mg magnesium) tablet 400 mg PO BEDTIME 90 Days Qty: 90 3RF Rx Instructions: may hold for loose stools pyridoxine (vitamin B6) 50 mg tablet 50 mg PO BID 30 Days Qty: 60 3RF Nurtec ODT 75 mg tablet,disintegrating 75 mg PO DAILY MDD 1 tab PRN (Reason: migraine headache) 30 Days Qty: 16 6RF Interventions: ED Discharge Assessment Last Done: 03/05/25 06:08 Discharge Date/Time: 03/05/25 06:10 Print Language: Malawian
[2025-03-04 22:28] VITALS: BP 145/91; PULSE 83; RESP 20; TEMP 36.6; O2SAT 96; BMI 44.3
[2025-03-04 22:46] LABS: MANUAL DIFF FLAG NO
[2025-03-04 22:48] LABS: Hematocrit 39.9 % (37.0-47.0); Hemoglobin 13.4 g/dl (12.0-16.0); Imm Gran Abs Auto 0.08 X10*3/uL (0.00-0.03); Imm Gran Pct Auto 0.4 % (0.0-0.4); Lymphocytes Absolute Auto 4.0 X10*3/uL (1.2-4.9); Mean Corpuscular HGB Conc 33.6 g/dl (31.0-35.0); Mean Corpuscular Hemoglobin 29.6 pg (27.0-33.0); Mean Corpuscular Volume 88.1 fL (80.0-98.0); NRBC Abs Auto 0.000 X10*3/uL (0.0-0.012); NRBC Pct Auto 0.0 /100WBC (0.0-0.2); Platelet Count 464 X10*3/uL (160-400); Red Blood Count 4.53 X10*6/uL (4.20-5.50); White Blood Count 18.1 X10*3/uL (4.8-10.8)
[2025-03-04 23:04] LABS: COVID-19 Test Negative (Negative); IDNOW Serial# 152EDE1D; IDNOW Serial# 16C4AD1C; Influenza B2 Negative (Negative)
[2025-03-04 23:05] LABS: Alanine Aminotransferase 31 U/L (0-31); Albumin Level 4.5 g/dL (3.5-5.0); Alkaline Phosphatase 135 U/L (39-117); Anion Gap 13 (12-20); Aspartate Amino Transferase 36 U/L (5-31); Blood Urea Nitrogen 17 mg/dL (9-16); Calcium 9.4 mg/dL (8.4-10.2); Carbon Dioxide 24 mmol/L (22-29); Chloride 109 mmol/L (96-108); Creatinine Clr Calc Pharmacy 128.7; Estimated Glomerular Filt Rate > 60; Lipase 8 U/L (8-78); Magnesium 2.1 mg/dL (1.6-2.6); Potassium 4.2 mmol/L (3.3-5.1); Sodium 142 mmol/L (135-145); Total Protein 8.0 g/dL (6.5-8.0)
--- OUTSIDE RECORDS SUMMARY | 2025-03-05 02:16 | XMS_ITS | Encounter Summary ---
Author Organization [facility] Address [address] [place] [address] Care Team Providers Care Cp Bleacher Operator Name Role Phone Bradley Juan MD Unavailable Yusra Barton APRN Primary Care Provider [phone] Encounter Details Date Type Department Care Team (Late st Contact Info) Description 09/15/2018 Scanned Document [facility] INSULATOR [address] [place] [id number] Provider, MD Umm [address] [place] [address] Social History Tobacco Use Types Packs/Day Years [...] on filedocumented in this encounter Care Teams Cp Bleacher Operator Relationship Specialty Start Date End Date Yusra Barton APRN [address] [place] [id number] PCP - General Family Medicine 05/25/18 Bradley Juan MD [address] [place] [address] Physician Cardiovascular Disease 07/08/17 documented as of this encounter
--- OUTSIDE RECORDS SUMMARY | 2025-03-05 02:16 | XMS_ITS | Encounter Summary ---
Author Organization [employer] Address [address] [facility] [address] [place] [address] Care Team Providers Care Third Shift Lieutenant Name Role Phone Davina Marie MD Primary Care Provider Encounter Details Date Type Department Care Team (Late st Contact Info) Description 07/31/2022 Orders Only [facility] MEDICINE [address] [place] [address] Davina Marie MD [address] [place] [address] Social History Tobacco Use Types Packs/Day Years [...] on filedocumented in this encounter Care Teams Third Shift Lieutenant Relationship Specialty Start Date End Date Davina Marie MD [address] [place] [address] PCP - General Family Medicine 12/01/19 documented as of this encounter
--- OUTSIDE RECORDS SUMMARY | 2025-03-05 02:16 | XMS_ITS | Clinical Summary ---
Author Organization [facility] Address [address] [place] [address] Phone Care Team Providers Care Stopboard Assembler Name Role Phone Davina Marie MD Primary Care Provider [phone] Social History Tobacco Use Types Packs/Day Years Used Date Smoking Tobacco: Never Assessed Sex and Gender Information Value Date Recorded Sex Assigned at Not on file Legal Sex Male 2:32 PM EDT Gender Identity Not on file Sexual Orientation Not on file Plan of Treatment Not on file Medical Devices Not on file Insurance [place] [address] [place] [address] [employer] Care Teams Stopboard Assembler Relationship Specialty Start Date End Date Davina Marie MD [address] [place] [address] PCP - General Family Medicine 02/01/21 Additional Source Comments The information contained in this document represents components of the legal health record. It is not the complete legal health record.[facility]
--- OUTSIDE RECORDS SUMMARY | 2025-03-05 02:16 | XMS_ITS | Encounter Summary ---
Author Organization [employer] Address [address] [facility] [address] [place] [address] Care Team Providers Care Customer Operations Specialist Name Role Phone Davina Marie MD Primary Care Provider Reason for Visit * Reason Comments Med Refill Encounter Details Date Type Department Care Team (Late st Contact Info) Description 07/03/2022 Refill [facility] [address] [place] [address] Davina Marie MD [address] [place] [address] Anemia, unspecified type Social History Tobacco Use [...] type documented in this encounter Care Teams Customer Operations Specialist Relationship Specialty Start Date End Date Davina Marie MD [address] [place] [address] PCP - General Family Medicine 12/01/19 documented as of this encounter
--- OUTSIDE RECORDS SUMMARY | 2025-03-05 02:16 | XMS_ITS | Clinical Summary ---
Author Organization [facility] it Address [address] [place] [address] Care Team Providers Care Treasury Accountant Name Role Phone Davina aMrie MD Primary Care Provider [phone] Surgical History Surgery Date Site/Laterality Comments OTHER SURGICAL HISTORY PROCEDURE: [place] ANES HRNA REPAIR UPR ABD TABDL RPR DIPHRG HRNA SALPINGOOPHORECTOMY 10/2018 Left PROCEDURE: [place] LAPAROSCOPY W/RMVL ADNEXAL STRUCTURES; COMMENT: ovarian torsion OTHER SURGICAL HISTORY 2016 PROCEDURE: [place] DILATION & CURETTAGE DX&/THER NONOBSTETRIC Medical History [...] RESULTING AGENCY - 09/11/2020 4:30 PM EDT [id number] THINPREP PAP, IMAGED: NEGATIVE FOR SQUAMOUS INTRAEPITHELIAL [...] Documents on File Type Date Recorded Patient First Leveler Expl anation Health Care Decision (hx) 12/14/2020 AD SCHUMACHER DIRECTIVE Health Care Decision (hx) 12/14/2020 AD SCHUMACHER DIRECTIVE Health Care Decision (hx) 12/14/2020 AD SCHMUACHER DIRECTIVE Health Care Decision (hx) 12/14/2020 AD SCHUMACHER DIRECTIVE Health Care Decision (hx) 12/14/2020 AD SCHUMACHER DIRECTIVE Health Care Decision (hx) 12/14/2020 AD SCHUMACHER DIRECTIVE Health Care Decision (hx) 12/14/2020 AD SCHUMACHER DIRECTIVE Health Care Decision (hx) 12/14/2020 AD SCHUMACHER DIRECTIVE Care Teams Treasury Accountant Relationship Specialty Start Date End Date Davina Marie MD [address] [place] [id number] PCP - General 06/27/21
--- OUTSIDE RECORDS SUMMARY | 2025-03-05 02:16 | XMS_ITS | Encounter Summary ---
Author Organization [employer] Address [address] [facility] [address] [place] [address] Care Team Providers Care City Mail Carrier Name Role Phone Davina Marie MD Primary Care Provider [phone] Reason for Visit * Reason Comments Med Refill Encounter Details Date Type Department Care Team ([facility] st Contact Info) Description 11/23/2024 Refill [facility] [address] [place] [address] Davina Marie MD [address] [place] [address] Unspecified atrial fibrillation (CMS/HCC) Social History Tobacco [...] documented as of this encounter Care Teams City Mail Carrier Relationship Specialty Start Date End Date Davina Marie MD [address] [place] [address] PCP - General Family Medicine 12/01/19 documented as of this encounter
--- OUTSIDE RECORDS SUMMARY | 2025-03-05 02:16 | XMS_ITS | Encounter Summary ---
Author Organization [employer] Address [address] [facility] [address] [place] [address] Care Team Providers Care Vat Skimmer Name Role Phone Davina Marie MD Primary Care Provider [phone] Encounter Details Date Type Department Care Team (Late st Contact Info) Description 05/23/2022 Telephone [facility] [address] [place], [place] [phone] Davina Marie MD [address] [place] [address] Social History Tobacco Use Types Packs/Day Years [...] on filedocumented in this encounter Care Teams Vat Skimmer Relationship Specialty Start Date End Date Davina Marie MD [address] [place] [address] PCP - General Family Medicine 12/01/19 documented as of this encounter
--- OUTSIDE RECORDS SUMMARY | 2025-03-05 02:16 | XMS_ITS | Encounter Summary ---
Author Organization [employer] Address [address] [facility] [address] [place] [address] Care Team Providers Care Enrober Name Role Phone Davina Marie MD Primary Care Provider [phone] Encounter Details Date Type Department Care Team (Late st Contact Info) Description 07/30/2022 Orders Only [facility] MEDICINE [address] [place], [place] [phone] Oumou Carney LPN Social History Tobacco Use [...] on filedocumented in this encounter Care Teams Enrober Relationship Specialty Start Date End Date Davina Marie MD [address] [place] [address] PCP - General Family Medicine 12/01/19 documented as of this encounter
--- OUTSIDE RECORDS SUMMARY | 2025-03-05 02:16 | XMS_ITS | Encounter Summary ---
Author Organization [employer] Address [address] [place] [address] Care Team Providers Care Feed Adviser Name Role Phone Davina Marie MD Primary Care Provider [phone] Encounter Details Date Type Department Care Team (Late st Contact Info) Description 03/04/2025 Orders Only GENERIC EXTERNAL DATA DEPARTMENT Provider, [...] Procedure Name Priority Date/Time Associated Diagnosis Comments XR CHEST 2 VIEWS Routine 03/05/2025 12:1 0 AM EDT INFLUENZA A B2 ID NOW (LARRY) Routine 03/04/2025 10:40 PM EDT COVID-19 ID NOW (LARRY) Routine 03/04/2025 10:40 PM EDT CBC WITH AUTO DIFFERENTIAL Routine 03/04/2025 10:40 PM EDT MAGNESIUM Routine 03/04/2025 10:40 PM EDT LIPASE Routine 03/04/2025 10:40 PM EDT COMPREHENSIVE METABOLIC PANEL Routine 03/04/2025 10:40 PM EDT documented in this encounter Results * XR Chest 2 Views (03/05/2025 12:10 AM EDT) Anatomical Region Laterality Modality Chest Radiographic Shasta ging 03/05/2025 12:1 0 AM EDT Narrative 03/05/2025 12:12 AM EDT [address] [place] [address] XRay Report Signed Patient: Tamanna Gutierrez MR#: [id number] : 1970 Acct:[id number] Age/Sex: 54 / F ADM Date: 03/04/25 Loc: HO.ED Attending Dr: Ordering Physician: Zoey Butler PA-C Date of Service: 03/04/25 Procedure(s): XR chest 2V Accession Number(s): [id number] cc: Davina Marie MD; Zoey Butler PA-C Reason for Exam: epigastric pain with GI sxs, rule out aspiration CLINICAL HISTORY: epigastric pain with GI sxs, rule out aspiration 2 view chest x-ray Comparison: 02/20/2025 Findings: Lungs are clear without acute infiltrates. No pneumothorax. Heart size normal. No acute bony abnormalities. Pain control stimulator leads. Impression: No acute processes This document has been electronically signed by: Rene Perez MD on 03/05/2025 00:10:59 Dictated By: Rene Perez MD Signed By: <Electronically signed by Rene Perez MD in OV> 03/05/25 001 DD/ 0010 TD/TT: 03/05/25 001 Financial Project Manager: Procedure Note Donotuseinterpreter, Image - 03/05/[address] [address] XRay Report Signed Patient: Tamanna GutierrezMR#: [id number] : 1970Acct:[id number] Age/Sex: 54 / FADM Date: 03/04/25 Loc: HO.ED Attending Dr: Ordering Physician: Zoey Butler PA-C Date of Service: 03/04/25 Procedure(s): XR chest 2V Accession Number(s): [id number] cc: Davina Marie MD; Zoey Butler PA-C Reason for Exam: epigastric pain with GI sxs, rule out aspiration CLINICAL HISTORY: epigastric pain with GI sxs, rule out aspiration 2 view chest x-ray Comparison: 02/20/2025 Findings: Lungs are clear without acute infiltrates. No pneumothorax. Heart size normal. No acute bony abnormalities. Pain control stimulator leads. Impression: No acute processes This document has been electronically signed by: Rene Perez MD on 03/05/2025 00:10:59 Dictated By: Rene Perez MD Signed By: <Electronically signed by Rene Perez MD in OV> 03/05/2511 DD/ TD/TT: 03/05/259 Financial Project Manager: [facility] External Provider IMG XR PROCEDURES Edited Result - Final * Lipase (03/04/2025 10:40 PM EDT) [facility] Lipase 8 8 - 78 U/L [facility] 03/04/2025 10:4 0 PM EDT 03/04/2025 10:44 PM EDT Generic External Data Provider LAB BLOOD ORDERAB LES Final Result Performing Organization Address [facility] Co de Phone Number [facility] [address] [place] [phone] * Magnesium (03/04/2025 10:40 PM EDT) [facility] Magnesium 2.1 1.6 - 2.6 mg/dL [facility] 03/04/2025 10:4 0 PM EDT 03/04/2025 10:44 PM EDT [facility] External Data Provider LAB BLOOD ORDERAB LES Final Result Performing Organization Address [facility] Co de Phone Number [facility] [address] [place] [phone] * (ABNORMAL) Comprehensive Metabolic Panel (03/04/2025 10:40 PM EDT) [facility] Sodium 142 135 - 145 mmol/L [facility] Potassium 4.2 3.3 - 5.1 mmol/L [facility] Comment:Slight Hemolysis.Int erpret result with caution. Chloride 109(H) 96 - 108 mmol/L [facility] Carbon Dioxide 24 22 - 29 mmol/L [facility] Anion Gap 13 12 - 20 [facility] Urea Nitrogen (BUN) 17(H) 9 - 16 mg/dL [facility] Creatinine, Serum 0.76 0.5 - 1.4 mg/dL [facility] Creatinine Clr Calc Pharmacy 128.7 [facility] Comment:Provided height and weight: 175.26 cm,136.078 kg.eGFR (calculated from the MDRD study equation) and eCrCl(calculated from the Cockcroft-Gault equation) are based ondifferent parameters and may not yield comparable results.If eCrCl result is absurd, please check patient'sheight/weight. Estimated Glomerular Filt Rate >60 [facility] Comment:Chronic Kidney Disea se: Estimated GFR < 60 mL/min/1.41y1Sbcxyg Kidney Disease: Estimated GFR < 15 mL/min/1.73m2 Glucose 120(H) 60 - 115 mg/dL [facility] Calcium 9.4 8.4 - 10.2 mg/dL [facility] Bilirubin, Total 0.5 0.0 - 1.0 mg/dL [facility] Aspartate Amino Transferase 36(H) 5 - 31 U/L [facility] Comment:Slight Hemolysis.Int erpret result with caution. Alanine Aminotransferase 31 0 - 31 U/L [facility] Total Protein 8.0 6.5 - 8.0 g/dL [facility] Albumin Level 4.5 3.5 - 5.0 g/dL [facility] Alkaline Phosphatase 135(H) 39 - 117 U/L [facility] 03/04/2025 10:4 0 PM EDT 03/04/2025 10:44 PM EDT us Generic External Data Provider LAB BLOOD ORDERAB LES Final Result [facility] [address] [place] [phone] * COVID-19 ID NOW (LARRY) (03/04/2025 10:40 PM EDT) IDNOW SERIAL# [id number] [facility] COVID-19 TEST Negative Negative [facility] COVID-19 NOTE See Note [facility] Comment: Results are for the identification of SARS-CoV2 RNA. TheSARS-CoV2 RNA is generally detectable in respiratory samplesduring the acute phase of infection. Positive results areindicative of the presence of SARS-CoV-2 RNA; clinicalcorrelation with patient history and other diagnosticinformation is necessary to determine patient infectionstatus. Positive results do not rule out bacterial infectionor co- infection with other viruses.Testing facilities within the [facility] and [facility] are required to report all positive results [...] on the Larry ID NOW utilizing NAAT. 03/04/2025 10:4 0 PM EDT 03/04/2025 10:44 PM EDT us Generic External Data Provider LAB MOLECULAR CLEOPATRA GNOSTICS ORDERABLES Final Result [facility] [address] [place] [phone] * Influenza A B2 ID NOW (Larry) (03/04/2025 10:40 PM EDT) IDNOW SERIAL# [id number] [facility] Influenza A Negative Negative [facility] Influenza B2 Negative Negative [facility] Influenza A B2 Note See Note [facility] Comment:The Larry ID NOW In fluenza [...] specimen and co- infection withRespiratory Syncytial Virus. 03/04/2025 10:4 0 PM EDT 03/04/2025 10:44 PM EDT us Generic External Data Provider LAB MICROBIOLOGY - GENERAL ORDERABLES Final Result [facility] [address] [place] [phone] * (ABNORMAL) CBC auto differential (03/04/2025 10:40 PM EDT) White Blood Count 18.1(H) 4.8 - 10.8 X10*3/uL [facility] Red Blood Count 4.53 4.20 - 5.50 X10*6/uL [facility] Hemoglobin 13.4 12.0 - 16.0 g/dl [facility] Hematocrit 39.9 37.0 - 47.0 % [facility] Mean Corpuscular Volume 88.1 80.0 - 98.0 fL [facility] Mean Corpuscular Hemoglobin 29.6 27.0 - 33.0 pg [facility] Mean Corpuscular HGB Conc 33.6 31.0 - 35.0 g/dl [facility] Red Cell Distribution Width 14.5 11.0 - 16.0 % [facility] Platelet Count 464(H) 160 - 400 X10*3/uL [facility] Mean Platelet Volume 10.0 9.4 - 12.3 fL [facility] Neutrophils Percent Auto 70.7 45 - 73 % [facility] Imm Gran Pct Auto 0.4 0.0 - 0.4 % [facility] Lymphocytes Percent Auto 22.2 20 - 40 % [facility] Monocytes Percent Auto 4.5 2 - 11 % [facility] Eosinophils Percent Auto 1.9 0 - 4 % [facility] Basophils Percent Auto 0.3 0 - 2 % [facility] NRBC Pct Auto 0.0 0.0 - 0.2 /100WBC [facility] Neutrophils Absolute Auto 12.8(H) 2.0 - 8.3 x10*3/uL [facility] Imm Gran Abs Auto 0.08(H) 0.00 - 0.03 X10*3/uL [facility] Lymphocytes Absolute Auto 4.0 1.2 - 4.9 X10*3/uL [facility] Monocytes Absolute Auto 0.8 0.1 - 1.2 X10*3/uL [facility] Eosinophils Absolute Auto 0.3 0.0 - 0.4 X10*3/uL [facility] Basophils Absolute Auto 0.1 0.0 - 0.2 X10*3/uL [facility] NRBC Abs Auto 0.000 0.0 - 0.012 X10*3/uL [facility] 03/04/2025 10:4 0 PM EDT 03/04/2025 10:44 PM EDT us Generic External Data Provider LAB BLOOD ORDERAB LES Final Result Performing Organization Address City/State/[facility] Co de Phone Number [facility] [address] [place] [phone] documented in this encounter Visit Diagnoses Not on filedocumented in this encounter Additional Health Concerns Assessment Noted Time PHQ-9 Depression Total Score: 11 024 9:53 AM EDT documented as of this encounter Care Teams Feed Adviser Relationship Specialty Start Date End Date Davina Marie MD [address] [place] [phone] PCP - General Family Medicine 12/01/19 documented as of this encounter
--- OUTSIDE RECORDS SUMMARY | 2025-03-05 02:16 | XMS_ITS | Encounter Summary ---
Author Organization [employer] Address [address] [place] [address] Care Team Providers Care Real Estate Investment Analyst Name Role Phone Davina Marie MD Primary Care Provider [phone] Reason for Visit * Reason Comments Med Refill Encounter Details Date Type Department Care Team ([facility] st Contact Info) Description 10/23/2023 Refill C [facility] [address] [place], [place] [phone] Davina Marie MD [address] [place] [address] Social History Tobacco Use Types Packs/Day Years [...] documented as of this encounter Care Teams Real Estate Investment Analyst Relationship Specialty Start Date End Date Davina Marie MD [address] [place] [phone] PCP - General Family Medicine 12/01/19 documented as of this encounter
--- OUTSIDE RECORDS SUMMARY | 2025-03-05 02:16 | XMS_ITS | Encounter Summary ---
Author Organization [employer] Address [address] [place] [address] Care Team Providers Care Patient Service Rep Name Role Phone Davina Marie MD Primary Care Provider [phone] Encounter Details Date Type Department Care Team (Late st Contact Info) Description 01/21/2023 Orders Only [facility] [address] [place] [address] Tamanna Villalpando LPN Social History Tobacco Use [...] on filedocumented in this encounter Care Teams Patient Service Rep Relationship Specialty Start Date End Date Davina Marie MD [address] [place] [phone] PCP - General Family Medicine 12/01/19 documented as of this encounter
--- OUTSIDE RECORDS SUMMARY | 2025-03-05 02:16 | XMS_ITS | Encounter Summary ---
Author Organization [employer] Address [address] [place] [address] Care Team Providers Care Atm Servicer Name Role Phone Davina Marie MD Primary Care Provider [phone] Encounter Details Date Type Department Care Team ([facility] st Contact Info) Description 11/25/2022 Orders Only [facility] [address] [place], [place] [phone] Davina Marie MD [address] [place] [address] Social History Tobacco Use Types Packs/Day Years [...] on filedocumented in this encounter Care Teams Atm Servicer Relationship Specialty Start Date End Date Davina Marie MD [address] [place] [phone] PCP - General Family Medicine 12/01/19 documented as of this encounter
--- OUTSIDE RECORDS SUMMARY | 2025-03-05 02:16 | XMS_ITS | Encounter Summary ---
Author Organization [facility] Address [address] [place] [address] Care Team Providers Care Patient Account Analyst Name Role Phone Services-[facility] Care Provider Bradley Juan MD Unavailable [phone] Yusra Barton APRN Primary Care Provider [phone] Encounter Details Date Type Department Care Team (Late st Contact Info) Description 04/06/[address] [facility] [address] [phone] Lisa Damon RT [address] [place] [phone] Social History Tobacco Use Types Packs/Day [...] filedocumented in this encounter Care Teams Patient Account Analyst Relationship Specialty Start Date End Date Services-[facility] [address] [place] [address] PCP - General Internal Medicine 05/26/17 05/24/18 Yusra Barton APRN [address] [place] [address] PCP - General Family Medicine 05/25/18 Bradley Juan MD [address] [place] [address] Physician Cardiovascular Disease 07/08/17 documented as of this encounter
--- OUTSIDE RECORDS SUMMARY | 2025-03-05 02:16 | XMS_ITS | Clinical Summary ---
Author Organization [employer] Address [address] [facility] [address] [place] [address] Care Team Providers Care Mainstreaming Facilitator Name Role Phone Davina Marie MD Primary Care Provider [phone] Allergies Active Allergy Reactions Criticality Noted Date [...] 30 tablet 025 Active Vitamin D, Ergocalciferol, 81331 units capsule TAKE ONE CAPSULE ONCE WEEKLY [...] EVERY NIGHT AT BEDTIME 90 tablet 3 025 Active DULoxetine (Cymbalta) [address] capsule [...] 9:47 AM EDT): Patient will be given Dbwtadgbfq-Fvnaicovorlxf-Xkbemuhp to treated headaches. GERD with esophagitis 03/07/2023 [...] October 2018: surgery for ovarian torsion at [facility] in [facility] Migraine 08/13/2018 Overview (07/31/2022): Overview Note: Migraine #[id number]# EXT_ID: [id number] Low back pain 10/29/2017 Overview (03/07/2023): Overview Note: Low back pain #024074# EXT_ID: [id number] Chest pain 07/08/2017 Restless leg syndrome 06/12/2017 Overview (07/31/2022): Overview Note: Restless leg syndrome #[id number]# EXT_ID: [id number] Osteoarthrosis involving lower leg 06/12/2017 Overview (03/07/2023): Overview Note: Osteoarthritis of knees, bilat #[id number]# EXT_ID: [id number] Encounters Date Type Department Care Team Description 03/04/2025 Orders Only GENERIC EXTERNAL DATA DEPARTMENT Provider, Generic External Data 02/22/2025 Refill [facility] [address] [place] [address] Davina Marie MD Unspecified atrial fibrillation (CMS/HCC) 02/20/2025 Orders Only GENERIC EXTERNAL DATA DEPARTMENT Provider, Generic External Data 01/24/2025 Refill [facility] [address] [place] [address] Davina Marie MD Unspecified atrial fibrillation (CMS/HCC) 01/12/2025 Refill [facility] [address] [place] [address] Davina Marie MD Atrial fibrillation, unspecified type (CMS/HCC) 01/07/2025 Telephone [facility] [address] [place] [address] Davina Marie MD No Show 12/31/2024 Patient Outreach [facility] [address] [place] [address] Davina Marie MD 12/23/2024 Orders Only GENERIC EXTERNAL DATA DEPARTMENT Provider, Generic External Data 12/22/2024 Refill [facility] [address] [facility] [place] [place] [address] Davina Marie MD Unspecified atrial fibrillation ([facility]/HCC) 12/18/2024 Refill [facility] [address] [facility] [place] [address] Davina Marie MD 12/15/2024 Refill [facility] [address] [facility] [place] [address] Davina Marie MD from Last 3 Months Immunizations Immunization Administration [...] VIEWS Routine 03/05/2025 12:1 0 AM EDT LIPASE Routine 03/04/2025 10:40 PM EDT MAGNESIUM Routine 03/04/2025 10:40 PM EDT COMPREHENSIVE METABOLIC PANEL Routine 03/04/2025 10:40 PM EDT COVID-19 ID NOW (LARRY) Routine 03/04/2025 10:40 PM EDT CBC WITH AUTO DIFFERENTIAL Routine 03/04/2025 10:40 PM EDT INFLUENZA A B2 ID NOW (LARRY) Routine 03/04/2025 10:40 PM EDT XR KNEE 4+ VIEWS BILATERAL Routine 02/20/2025 3:13 PM EDT XR CHEST 1 VIEW Routine 02/20/2025 3:09 PM EDT COVID-19 ID NOW (LARRY) Routine 02/20/2025 2:11 PM EDT INFLUENZA A [...] Recently Relevant to Health Maintenance Results * XR Chest 2 Views (03/05/2025 12:10 AM EDT) Only the most recent of2 resultswithin the time period is included. Anatomical Region Laterality Modality Chest Radiographic Shasta ging 03/05/2025 12:1 0 AM EDT Narrative 03/05/2025 12:12 AM EDT [address] [address] XRay Report Signed Patient: Tamanna Gutierrez MR#: [id number] : 1970 Acct:[id number] Age/Sex: 54 / F ADM Date: 03/04/25 Loc: HO.ED Attending Dr: Ordering Physician: Zoey Butler PA-C Date of Service: 03/04/25 Procedure(s): XR chest 2V Accession Number(s): [id number] cc: Davina Marie MD; Zoey Butler PA-C [...] signed by Rene Perez MD in OV> 03/05/252 DD/ TD/TT: 03/05/25 001 Community Nutrition Educator: Procedure Note Donotuseinterpreter, Image - 03/05/2025 [place] [address] XRay Report Signed Patient: Tamanna GutierrezMR#: [id number] : 1970Acct:[id number] Age/Sex: 54 / FADM Date: 03/04/25 Loc: HO.ED Attending Dr: Ordering Physician: Zoey Butler PA-C Date of Service: 03/04/25 Procedure(s): XR chest 2V Accession Number(s): [id number] cc: Davina Marie MD; Zoey Butler PA-C [...] MD in OV> 03/05/2511 DD/ TD/TT: 03/05/259 Community Nutrition Educator: [facility] External Provider IMG XR PROCEDURES Edited Result - Final * Influenza A B2 ID NOW (Larry) (03/04/2025 10:40 PM EDT) Only the most recent of2 resultswithin the time period is included. IDNOW SERIAL# [id number] [facility] Influenza A Negative Negative [facility] Influenza B2 Negative Negative [facility] Influenza A B2 Note See Note [facility] Comment:The Alrry ID NOW In fluenza A B2 test [...] LAB MICROBIOLOGY - GENERAL ORDERABLES Final Result [facility] [address] [place] [phone] * COVID-19 ID NOW (LARRY) (03/04/2025 10:40 PM EDT) Only the most recent of2 resultswithin the time period is included. IDNOW SERIAL# [id number] [facility] COVID-19 TEST Negative Negative [facility] COVID-19 NOTE See Note [facility] Comment: Results are for the identification of SARS-CoV2 RNA. TheSARS-CoV2 RNA is generally detectable in respiratory samplesduring the acute phase of infection. Positive results areindicative of the presence of SARS-CoV-2 RNA; clinicalcorrelation with patient history and other diagnosticinformation is necessary to determine patient infectionstatus. Positive results do not rule out bacterial infectionor co- infection with other viruses.Testing facilities within the [facility] and itsterritories are required to report all [...] use by authorized laboratories.Testing performed on the [employer] NOW utilizing NAAT. 03/04/2025 10:4 0 PM EDT 03/04/2025 10:44 PM EDT us Generic External Data Provider LAB MOLECULAR CLEOPATRA GNOSTICS ORDERABLES Final Result [facility] [address] [place] [phone] * (ABNORMAL) CBC auto differential (03/04/2025 10:40 PM EDT) Only the most recent of2 resultswithin the time period is included. White Blood Count 18.1(H) 4.8 - 10.8 X10*3/uL [facility] Red Blood Count 4.53 4.20 - 5.50 X10*6/uL [facility] Hemoglobin 13.4 12.0 - 16.0 g/dl [facility] Hematocrit 39.9 37.0 - 47.0 % [facility] Mean Corpuscular Volume 88.1 80.0 - 98.0 fL [facility] Mean Corpuscular Hemoglobin 29.6 27.0 - 33.0 pg [facility] Mean Corpuscular HGB Conc 33.6 31.0 - 35.0 g/dl [facility] Red Cell Distribution Width 14.5 11.0 - 16.0 % [facility] Platelet Count 464(H) 160 - 400 X10*3/uL [facility] Mean Platelet Volume 10.0 9.4 - 12.3 fL [facility] Neutrophils Percent Auto 70.7 45 - 73 % [facility] Imm Gran Pct Auto 0.4 0.0 - 0.4 % [facility] Lymphocytes Percent Auto 22.2 20 - 40 % [facility] Monocytes Percent Auto 4.5 2 - 11 % [facility] Eosinophils Percent Auto 1.9 0 - 4 % [facility] Basophils Percent Auto 0.3 0 - 2 % [facility] NRBC Pct Auto 0.0 0.0 - 0.2 /100WBC [facility] Neutrophils Absolute Auto 12.8(H) 2.0 - 8.3 x10*3/uL [facility] Imm Gran Abs Auto 0.08(H) 0.00 - 0.03 X10*3/uL [facility] Lymphocytes Absolute Auto 4.0 1.2 - 4.9 X10*3/uL [facility] Monocytes Absolute Auto 0.8 0.1 - 1.2 X10*3/uL [facility] Eosinophils Absolute Auto 0.3 0.0 - 0.4 X10*3/uL [facility] Basophils Absolute Auto 0.1 0.0 - 0.2 X10*3/uL [facility] NRBC Abs Auto 0.000 0.0 - 0.012 X10*3/uL [facility] 03/04/2025 10:4 0 PM EDT 03/04/2025 10:44 PM EDT us Generic External Data Provider LAB BLOOD ORDERAB LES Final Result [facility] [address] [place] [phone] * Magnesium (03/04/2025 10:40 PM EDT) Only the most recent of2 resultswithin the time period is included. Pathologist [facility] Magnesium 2.1 1.6 - 2.6 mg/dL [facility] 03/04/2025 10:4 0 PM EDT 03/04/2025 10:44 PM EDT Generic External Data Provider LAB BLOOD ORDERAB LES Final Result Performing Organization Address [facility] Co de Phone Number [facility] [address] [place] [phone] * Lipase (03/04/2025 10:40 PM EDT) Pathologist [facility] Lipase 8 8 - 78 U/L [facility] 03/04/2025 10:4 0 PM EDT 03/04/2025 10:44 PM EDT Generic External Data Provider LAB BLOOD ORDERAB LES Final Result Performing Organization Address [facility] Co de Phone Number [facility] [address] [place] [phone] * (ABNORMAL) Comprehensive Metabolic Panel (03/04/2025 10:40 PM EDT) Pathologist [facility] Sodium 142 135 - 145 mmol/L [facility] Potassium 4.2 3.3 - 5.1 mmol/L [facility] Comment:Slight Hemolysis.Int erpret result with caution. Chloride 109(H) 96 - 108 mmol/L [facility] Carbon Dioxide 24 22 - 29 mmol/L [facility] Anion Gap 13 12 - 20 [facility] Urea Nitrogen (BUN) 17(H) 9 - 16 mg/dL [facility] Creatinine, Serum 0.76 0.5 - 1.4 mg/dL [facility] Creatinine Clr Calc Pharmacy 128.7 [facility] Comment:Provided height and weight: 175.26 cm,136.078 kg.eGFR (calculated from the MDRD study equation) and eCrCl(calculated from the Cockcroft-Gault equation) are based ondifferent parameters and may not yield comparable results.If eCrCl result is absurd, please check patient'sheight/weight. Estimated Glomerular Filt Rate >60 [facility] Comment:Chronic Kidney Disea se: Estimated GFR < 60 mL/min/1.72e1Wbgohr Kidney Disease: Estimated GFR < 15 mL/min/1.73m2 Glucose 120(H) 60 - 115 mg/dL [facility] Calcium 9.4 8.4 - 10.2 mg/dL [facility] Bilirubin, Total 0.5 0.0 - 1.0 mg/dL [facility] Aspartate Amino Transferase 36(H) 5 - 31 U/L [facility] Comment:Slight Hemolysis.Int erpret result with caution. Alanine Aminotransferase 31 0 - 31 U/L [facility] Total Protein 8.0 6.5 - 8.0 g/dL [facility] Albumin Level 4.5 3.5 - 5.0 g/dL [facility] Alkaline Phosphatase 135(H) 39 - 117 U/L [facility] 03/04/2025 10:4 0 PM EDT 03/04/2025 10:44 PM EDT us Generic External Data Provider LAB BLOOD ORDERAB LES Final Result [facility] [address] [place] [phone] * XR Knee 4+ Views Bilateral (02/20/2025 3:13 PM EDT) Anatomical Region Laterality Modality Lower Extremities, Knee Bilateral Radiogra phic Imaging 02/20/2025 3:13 PM EDT Narrative 02/20/2025 3:14 PM EDT [address] [place] [address] XRay Report Signed Patient: Tamanna Gutierrez MR#: [id number] : 1970 Acct:[id number] Age/Sex: 54 / F ADM Date: 02/20/25 Loc: HO.ED Attending Dr: Ordering Physician: Feliz Garcia Date of Service: 02/20/25 Procedure(s): XR Knee Aldair 4V Accession Number(s): [id number] cc: Feliz Garcia; Davina Marie MD Reason for Exam: Knee pain CLINICAL HISTORY: Knee pain Four views of the right and left knees. COMPARISON: None provided. FINDINGS: Likely stimulator leads along the proximal medial tibia is bilaterally. Right knee: No appreciable right suprapatellar joint effusion. Patellar enthesophyte present. Tricompartment osteophytes and joint space narrowing. Visualized portions of the right femur, patella, tibia and fibula appear intact. Left knee: No appreciable left suprapatellar joint effusion. Patellar enthesophyte present. Small well corticated ossification measuring 0.6 x 0.4 cm present along the superior pole of the patella on lateral imaging likely representing a remote injury versus displaced osteophyte. Tricompartment osteophytes and joint space narrowing. Visualized portions of the left femur, patella, tibia and fibula appear intact. IMPRESSION: 1. No radiographic evidence of acute injury to the right and left knees. 2. Rulv-pr-rzynlmea tricompartment degenerative changes of the bilateral knees. 3. Patellar enthesophytes present bilaterally. 4. Well corticated ossification along the superior pole of the left patella likely representing sequela of remote injury or displaced osteophyte. This does not appear acute. This document has been electronically signed by: Shmuel Barton MD on 02/20/2025 15:13:02 Dictated By: Shmuel Barton MD Signed By: <Electronically signed by Shmuel Barton MD in OV> 02/20/251512 DD/ 12 TD/TT: 02/20/251512 Community Nutrition Educator: Procedure Note Donotuseinterpreter, Image - 02/20/[address] [address] XRay Report Signed Patient: Tamanna GutierrezMR#: [id number] : 1970Acct:[id number] Age/Sex: 54 / FADM Date: 02/20/25 Loc: HO.ED Attending Dr: Ordering Physician: Feliz Garcia Date of Service: 02/20/25 Procedure(s): XR Knee [place]air 4V Accession Number(s): [id number] cc: Feliz Garcia; Davina Marie MD Reason for Exam: Knee pain CLINICAL HISTORY: Knee pain Four views of the right and left knees. COMPARISON: None provided. FINDINGS: Likely stimulator leads along the proximal medial tibia is bilaterally. Right knee: No appreciable right suprapatellar joint effusion. Patellar enthesophyte present. Tricompartment osteophytes and joint space narrowing. Visualized portions of the right femur, patella, tibia and fibula appear intact. Left knee: No appreciable left suprapatellar joint effusion. Patellar enthesophyte present. Small well corticated ossification measuring 0.6 x 0.4 cm present along the superior pole of the patella on lateral imaging likely representing a remote injury versus displaced osteophyte. Tricompartment osteophytes and joint space narrowing. Visualized portions of the left femur, patella, tibia and fibula appear intact. IMPRESSION: 1. No radiographic evidence of acute injury to the right and left knees. 2. Rjxd-vd-btdgfcid tricompartment degenerative changes of the bilateral knees. 3. Patellar enthesophytes present bilaterally. 4. Well corticated ossification along the superior pole of the left patella likely representing sequela of remote injury or displaced osteophyte. This does not appear acute. This document has been electronically signed by: Shmuel Barton MD on 02/20/2025 15:13:02 Dictated By: Shmuel Barton MD Signed By: <Electronically signed by Shmuel Barton MD in OV> 02/20/251512 DD/ 12 TD/TT: 02/20/251512 Community Nutrition Educator: [facility] External Provider IMG XR PROCEDURES Edited Result - Final * XR Chest 1 View (02/20/2025 3:09 PM EDT) Anatomical Region Laterality Modality Chest Radiographic Shasta ging 02/20/2025 3:09 PM EDT Narrative 02/20/2025 3:11 PM EDT [address] [address] XRay Report Signed Patient: Tamanna Gutierrez MR#: [id number] : 1970 Acct:[id number] Age/Sex: 54 / F ADM Date: 02/20/25 Loc: HO.ED Attending Dr: Ordering Physician: Feliz Garcia Date of Service: 02/20/25 Procedure(s): XR chest 1V Accession Number(s): [id number] cc: Feliz Garcia; Davina Marie MD Reason for Exam: coughing and wheezing CLINICAL HISTORY: coughing and wheezing Single view of the chest. COMPARISON: XR chest dated 12/23/24 at 17:57 EDT FINDINGS: Nerve stimulator hardware along the mid to lower thoracic spine and midcervical spine, stable. Normal heart and mediastinal contours. No consolidation. No pleural effusion or pneumothorax. Mild spondylosis. No acute fracture. IMPRESSION: 1. No consolidation. This document has been electronically signed by: Shmuel Barton MD on 02/20/2025 15:09:39 Dictated By: Shmuel Barton MD Signed By: <Electronically signed by Shmuel Barton MD in OV> 02/20/25 1510 DD/ 1509 TD/TT: 02/20/25 1509 Community Nutrition Educator: Procedure Note Donotuseinterpreter, Image - 02/20/[address] [address] XRay Report Signed Patient: Tamanna GutierrezMR#: [id number] : 1970Acct:[id number] Age/Sex: 54 / FADM Date: 02/20/25 Loc: HO.ED Attending Dr: Ordering Physician: Felzi Garcia Date of Service: 02/20/25 Procedure(s): XR chest 1V Accession Number(s): [id number] cc: Feliz Garcia; Davina Marie MD Reason for Exam: coughing and wheezing CLINICAL HISTORY: coughing and wheezing Single view of the chest. COMPARISON: XR chest dated 12/23/24 at 17:57 EDT FINDINGS: Nerve stimulator hardware along the mid to lower thoracic spine and midcervical spine, stable. Normal heart and mediastinal contours. No consolidation. No pleural effusion or pneumothorax. Mild spondylosis. No acute fracture. IMPRESSION: 1. No consolidation. This document has been electronically signed by: Shmuel Barton MD on 02/20/2025 15:09:39 Dictated By: Shmuel Barton MD Signed By: <Electronically signed by Shmuel Barton MD in OV> 02/20/25 1510 DD/ 1509 TD/TT: 02/20/25 1509 Community Nutrition Educator: [facility] External Provider IMG XR PROCEDURES Edited Result - Final * CT Head w/o Contrast (12/23/2024 6:42 PM EDT) Anatomical Region Laterality Modality Head, Neck Computed Tomogra phy 12/23/2024 6:42 PM EDT Narrative 12/23/2024 6:43 PM EDT [place] [address] CT Scan Report Signed Patient: Tamanna Gutierrez MR#: [id number] : 1970 Acct:[id number] Age/Sex: 54 / F ADM Date: 12/23/24 Loc: HO.ED Attending Dr: Ordering Physician: Elizabeth Bryan Date of Service: 12/23/24 Procedure(s): CT head/brain wo IV con Accession Number(s): [id number] cc: Elizabeth Bryan; Davina Marie MD Report Number: [id number]: Total DLP = 889.00 mGy-cm CLINICAL HISTORY: [...] in OV> 12/23/241842 DD/ 41 TD/TT: 12/23/241841 Community Nutrition Educator: Procedure Note Donotuseinterpreter, Image - 12/23/[address] [address] [address] Scan Report Signed Patient: Tamanna GutierrezMR#: [id number] : 1970Acct:[id number] Age/Sex: 54 / FADM Date: 12/23/24 Loc: HO.ED Attending Dr: Ordering Physician: Elizabeth Bryan Date of Service: 12/23/24 Procedure(s): CT head/brain wo IV con Accession Number(s): [id number] cc: Elizabeth Bryan; Davina Marie MD Report Number: [id number]: Total DLP = 889.00 mGy-cm CLINICAL HISTORY: [...] in OV> 12/23/241842 DD/ 41 TD/TT: 12/23/241841 Community Nutrition Educator: [facility] External Provider IMG CT PROCEDURES Edited Result - Final * High Sensitivity Troponin I (12/23/2024 6:05 PM EDT) Pathologist [facility] TROPONIN I HIGH SENSITIVITY <2.7 <3.5 - 17.0 ng/L [facility] Comment:The Larry high sens itivity Troponin-I results should beused in conjunction with other diagnostic information suchas ECG, clinical observations and information, and patientsymptoms to aid in the diagnosis of [place]. 12/23/2024 6:05 PM EDT 12/23/2024 6:13 PM EDT us Generic External Data Provider LAB BLOOD ORDERAB LES Final Result [facility] [address] [place] [phone] * SARS-CoV-2 RNA, Influenza A/B, and RSV RNA, Ql NAAT (12/23/2024 6:05 PM EDT) Pathologist [facility] Influenza A PCR NEGATIVE Negative [facility] Influenza B PCR NEGATIVE Negative [facility] Resp Syncy Virus RNA Qual PCR NEGATIVE Negative [facility] SARS COV2 PCR NEGATIVE Negative [facility] Comment:All test results mus t [...] use by authorized laboratories.Testing performed on the [employer] Gene[employer]pert utilizingreal-time RT-PCR.All SARS CoV2 and positive influenza A/B results arereported to [facility]. 12/23/2024 6:05 PM EDT 12/23/2024 6:13 PM EDT us Generic External Data Provider LAB MICROBIOLOGY - GENERAL ORDERABLES Final Result Performing Organization Address [facility]/ZIP Co de Phone Number [facility] [address] [place] [phone] * (ABNORMAL) Hepatic Function Panel (12/23/2024 6:05 PM EDT) Bilirubin, Total 0.3 0.0 - 1.0 mg/dL [facility] Bilirubin, Direct 0.2 0.0 - 0.5 mg/dL [facility] Aspartate Amino Transferase 18 5 - 31 U/L [facility] Alanine Aminotransferase 21 0 - 31 U/L [facility] Total Protein 7.9 6.5 - 8.0 g/dL [facility] Albumin Level 4.5 3.5 - 5.0 g/dL [facility] Alkaline Phosphatase 141(H) 39 - 117 U/L [facility] 12/23/2024 6:05 PM EDT 12/23/2024 6:13 PM EDT us Generic External Data Provider LAB BLOOD ORDERAB LES Final Result Performing Organization Address [facility] Co de Phone Number [facility] [address] [place] [phone] * (ABNORMAL) Basic Metabolic Panel (12/23/2024 6:05 PM EDT) Pathologist [facility] Sodium 141 135 - 145 mmol/L [facility] Potassium 4.0 3.3 - 5.1 mmol/L [facility] Chloride 105 96 - 108 mmol/L [facility] Carbon Dioxide 26 22 - 29 mmol/L [facility] Anion Gap 14 12 - 20 [facility] Urea Nitrogen (BUN) 16 9 - 16 mg/dL [facility] Creatinine, Serum 0.83 0.5 - 1.4 mg/dL [facility] Creatinine Clr Calc Pharmacy 121.6 [facility] Comment:Provided height and weight: 175.26 cm,143.8 kg.eGFR (calculated from the MDRD study equation) and eCrCl(calculated from the Cockcroft-Gault equation) are based ondifferent parameters and may not yield comparable results.If eCrCl result is absurd, please check patient'sheight/weight. Estimated Glomerular Filt Rate >60 [facility] Comment:Chronic Kidney Disea se: Estimated GFR < 60 mL/min/1.06j9Lxkkmc Kidney Disease: Estimated GFR < 15 mL/min/1.73m2 Glucose 117(H) 60 - 115 mg/dL [facility] Calcium 9.2 8.4 - 10.2 mg/dL [facility] 12/23/2024 6:05 PM EDT 12/23/2024 6:13 PM EDT us Generic External Data Provider LAB BLOOD ORDERAB LES Final Result [facility] [address] [place] [phone] * (ABNORMAL) Lipid Panel, Standard (09/24/2023 10:04 AM EDT) Triglycerides 183(H) <150 mg/dL [facility] Comment:Desirable Triglyceri de: less than 150 mg/dLBorderline High Triglyceride 150-199 mg/dLHigh Triglyceride: 200-499 mg/dLVery High Triglyceride: greater than or equal to 5OO mg/dL Cholesterol 139 <200 mg/dL [facility] Comment:Desirable Cholestero l: less than 200 mg/dLBorderline High Cholesterol: 200-239 mg/dLHigh Cholesterol: greater than 239 mg/dL LDL Cholesterol Calculated 60 <100 mg/dL [facility] Comment:Desirable LDL: less than 100 mg/dLNear Optimal/Above Optimal LDL: 110- 129 mg/dLBorderline High LDL: 130-159 mg/dLHigh LDL: 160-189 mg/dLVery High LDL: greater than or equal to 190 mg/dL HDL Cholesterol 43 >40 mg/dL [facility] Comment:Desirable HDL: great er than 40 mg/dL Note: This HDL assay may give artificially low results in patients with liver disease. Blood Venous blood specimen / Unknown 09/24/2023 10:04 AM EDT 09/24/2023 2:32 PM EDT Davina Marie MD LAB BLOOD ORDERABLES Final Resul t Performing Organization Address [facility] Center/ZIP Co de Phone Number [facility] [address] [place] [address] [phone] * Hepatitis C Antibody with Reflex to HCV, RNA, Quantitative, Real-Time PCR (04/02/2023 8:28 AM EDT) Hepatitis C Antibody Nonreactive Nonreactive [facility] Comment:Antibodies to HCV no t detected; does not exclude early acuteHCV infection. Blood Venous blood specimen / Unknown 04/02/2023 8:28 AM EDT 04/02/2023 8:36 AM EDT Result [facility] Davina Marie MD LAB BLOOD ORDERABLES Final Resul t Performing Organization Address City/[facility] Co de Phone Number [facility] [address] [place] [phone] * HIV AB/AG (01/01/2021 10:40 AM [...] of detection of this assay. The [employer] HIV Ag/Ab Combo assay result and supplemental assay results should be interpreted in conjunction with the patient's clinical presentation, history and other laboratory results. If the results are inconsistent with clinical evidence, additional testing is suggested to confirm the result. 01/01/2021 10:4 0 AM EDT Ej Allred MD HISTORICAL/NON ORDERAB LE LABS Final Result [facility] [address] from Last 3 Months or Most Recently Relevant to Health Maintenance Insurance [place] [facility] STANDARD MEDICARE Care Teams Mainstreaming Facilitator Relationship Specialty Start Date End Date Davina Marie MD [address] [place] [address] PCP - General Family Medicine 12/01/19
--- OUTSIDE RECORDS SUMMARY | 2025-03-05 02:16 | XMS_ITS | Clinical Summary ---
Author Organization [facility] Address [address] [place] [address] Care Team Providers Care Skinning Machine Feeder Name Role Phone Unavailable Primary Care Provider [...] Migraine 08/13/2018 Overview (08/12/2019): Overview Note: Migraine #[id number]# EXT_ID: [id number] Low back pain 10/29/2017 Overview (08/12/2019): Overview Note: Low back pain #[id number]# EXT_ID: [id number] Restless leg syndrome 06/12/2017 Overview (08/12/2019): Overview Note: Restless leg syndrome #[id number]# EXT_ID: [id number] Osteoarthritis of knees, bilateral 06/12/2017 Overview (08/12/2019): Overview Note: Osteoarthritis of knees, bilat #526195# EXT_ID: [id number] Knee arthropathy 06/12/2017 Overview (08/12/2019): Overview Note: Knee arthropathy #239473# EXT_ID: [id number] Hypertension 01/23/2017 Overview (08/12/2019): Overview Note: Hypertension #010131# EXT_ID: [id number] Immunizations Immunization Administration Dates Next Due INFLUENZA, [...] 09/23/2018 6:12 PM EDT Temperature 37.3 C (99.41112829206727 F) 09/23/2018 6:12 PM EDT Respiratory Rate [...]
--- OUTSIDE RECORDS SUMMARY | 2025-03-05 02:16 | XMS_ITS | Clinical Summary ---
Author Organization [facility] Address [address] [place] [address] Care Team Providers Care Commissary Production Supervisor Name Role Phone Bradley Juan MD Unavailable [phone] Yusra Barton APRN Primary Care Provider [phone] Allergies No known active allergies Medications DULoxetine [...] Comment:Negative for intraep ithelial lesion or malignancy. Director Of Corporate Real Estate: [facility] Comment: MXD, CT (ASCP) CT screening location: [place] [address] Comment [facility] Comment: EXPLANATORY NOTE: [...] was performed using the APTIMA HPV Assay ([employer] This assay detects E6/E7 viral messenger RNA (mRNA) from 14 high-risk HPV types (16,18,31,33,35,39,45,51,52,56,58,59,66,68). The analytical performance characteristics of this assay have been determined by [employer]. The modifications have not been cleared or approved by the FDA. This assay has been validated pursuant to the CLIA regulations and is used for clinical purposes. 10/14/2018 10:2 2 AM EDT 10/14/2018 10:04 PM EDT Narrative Resulting Agency Comment Performing Organization Information: Site ID: [id number] Name: [facility] Address: [address] [place] [address], [place] [address] Director: Antonio Jj MD Cristela Sanches MD LAB AMB PATH/CYTO ORDERABLES Final Result [facility] [address] [place] [address], [place] [address] from Last 3 Months or Most Recently Relevant to Health Maintenance Insurance [facility] Advance Directives * Full Code (Latest Code Status on File) Date Activated Date Inactivated Comments 09/12/2018 1:53 AM * Full Code Date Activated Date Inactivated Comments 07/08/2017 11:14 PM 09/11/2018 3:55 PM Care Teams Commissary Production Supervisor Relationship Specialty Start Date End Date Yusra Barton APRN [address] [place] [address] PCP - General Family Medicine 05/25/18 Bradley Juan MD [address] [place] [address] Physician Cardiovascular Disease 07/08/17
--- OUTSIDE RECORDS SUMMARY | 2025-03-05 02:16 | XMS_ITS | Encounter Summary ---
Author Organization [employer] Address [address] [place] [address] Care Team Providers Care Installer Helper Name Role Phone Davina Marie MD Primary Care Provider [phone] Encounter Details Date Type Department Care Team (Late st Contact Info) Description 11/19/2022 Orders Only [facility] [address] [place] [address] Tamanna Villalpando LPN Social History Tobacco Use [...] on filedocumented in this encounter Care Teams Installer Helper Relationship Specialty Start Date End Date Davina Marie MD [address] [place] [address] PCP - General Family Medicine 12/01/19 documented as of this encounter
[2025-03-05 02:37] VITALS: BP 150/88; PULSE 77; RESP 18; TEMP 36.6; O2SAT 99
[2025-03-05 04:39] VITALS: BP 141/67; PULSE 86; RESP 14; O2SAT 97
[2025-03-05] MEDS: Magnesium Hydrox/Alum Hydrox 30 ML ORAL.SUSP PO (04:46)
[2025-03-05] MEDS: Lidocaine HCl Viscous 2 % 15 ML SOLUTION MUCOUS MEM (04:46)
[2025-03-05 06:08] VITALS: BP 141/67; PULSE 86; RESP 14; TEMP 36.6; O2SAT 97
--- NOTE | 2025-03-18 01:19 | PC.NURSE ---
Late entry: pt receieved 1000ml of IV NS fluid on 03/05/25
== END 2025-03-05 06:10 | disposition home or self-care (01) ==
PROVIDERS: Physician Assistant Medical; Emergency Provider Emergency Medicine; PCP Student in an Organized Health Care Education/Training Program
DX: A08.4 Viral intestinal infection, unspecified (principal); R11.2 Nausea with vomiting, unspecified; G89.4 Chronic pain syndrome; J02.9 Acute pharyngitis, unspecified; R10.13 Epigastric pain; Z11.52 Encounter for screening for COVID-19; Z79.899 Other long term (current) drug therapy
CPT/HCPCS: 71046; 80053; 83690; 83735; 85025; 87502; 87635; 96361; 96374; 96375; 99284; J1885; J2405

== ENCOUNTER → 2025-03-04 22:28 | Outpatient (BNV) | payer MEDICARE, MEDICAID, SELFPAY | PROVIDERS: PCP Student in an Organized Health Care Education/Training Program; Visit Provider Radiology Diagnostic Radiology | DX: R10.13 Epigastric pain (principal) | CPT/HCPCS: 71046 ==

== ENCOUNTER 2025-04-14 13:34 | Outpatient (REF) | payer MEDICARE, MEDICAID, SELFPAY ==
--- NOTE | ~2025-04-14 | XR_ITS ---
EXAMINATION: XR CHEST CLINICAL INFORMATION: cough, soreness of ribs bilateral COMPARISON: Previous chest x-ray most recent March 04, 2025 TECHNIQUE: 2 views of the chest were obtained. FINDINGS: Partially visualized leads in the cervical and thoracic spinal canal unchanged. Cardiac and mediastinal contours are normal. Lungs are clear. No pleural effusion or pneumothorax. No rib fracture seen. Mild curvature of the thoracic spine to the right and degenerative changes. XR/XR chest 2V IMPRESSION: No evidence for acute disease in the chest. Electronically signed by: Alba Bustamante MD 04/14/2025 02:08 PM EDT
--- OUTSIDE RECORDS SUMMARY | 2025-04-14 13:00 | XMS_ITS | Encounter Summary ---
Author Organization [employer] Address [address] [place] [address] Care Team Providers Care Medical Assistant Internal Medicine Name Role Phone Sandra Neal CNP Primary Care Provider [phone] Encounter Details Date Type Department Care Team (Late st Contact Info) Description 04/14/2025 1:00 PM EDT Office Visit [facility] [address] [place] [address] Faith Wu MD [address] [place] [address] Acute URI (Primary Dx); Sore throat; Acute [...] Indeterminate Final QC Media Lot # 04/14/2025 [id number] Final Lot# Expiration Date 04/14/2025 2,,027 Final Influenza B 04/14/2025 Negative Negative, Indeterminate Final QC Media Lot # 04/14/2025 [id number] Final Lot# Expiration Date 04/14/2025 2,,027 Final Rapid Strep A Screen 04/14/2025 Negative Negative, None Detected Final QC Media Lot # 04/14/2025 [id number] Final Lot# Expiration Date 04/14/2025 2, Final [...] LARRY ID NOW POCT Rapid Influenza B LRARY ID NOW POCT Rapid Strep A LARRY ID NOW Acute cough Orders: XR Chest [...] PM EDT Narrative 04/14/2025 2:10 PM EDT [address] [address] XRay Report Signed Patient: Tamanna Gutierrez MR#: [id number] : 1970 Acct:[id number] Age/Sex: 55 / F ADM Date: 04/14/25 Loc: [facility] Attending Dr: Faith Wu MD Ordering Physician: Faith Wu MD Date of Service: 04/14/25 Procedure(s): XR chest 2V Accession Number(s): [id number] cc: Faith Wu MD Reason for Exam: [...] 04/14/25 1408 DD/ 1400 TD/TT: 04/14/25 1402 Organic Chemistry Professor: SANTI Procedure Note Donotuseinterpreter, Image - 04/14/[address] [address] XRay Report Signed Patient: Tamanna GutierrezMR#: [id number] : 1970Acct:[id number] Age/Sex: 55 / FADM Date: 04/14/25 Loc: GER[facility] Attending Dr: Faith Wu MD Ordering Physician: Faith Wu MD Date of Service: 04/14/25 Procedure(s): XR chest 2V Accession Number(s): [id number] cc: Faith Wu MD Reason for Exam: [...] 04/14/25 1408 DD/ 1400 TD/TT: 04/14/25 1402 Organic Chemistry Professor: SANTI Faith Wu MD IMG XR PROCEDURES Final Re sult * POCT Rapid Influenza B LARRY ID NOW (04/14/2025 1:17 PM EDT) Influenza B Negative Negative, Indeterminate [facility] QC Media Lot # [id number] [facility] Lot# Expiration Date [facility] Swab 04/14/2025 1:17 PM EDT Faith Wu MD POINT OF CARE TEST ENTER/E DIT ORDERABLES Final Result [facility] [address] [place] [phone] * POCT Rapid Influenza A LARRY ID NOW (04/14/2025 1:17 PM EDT) Influenza A Negative Negative, Indeterminate [facility] QC Media Lot # [id number] [facility] Lot# Expiration Date [facility] Swab 04/14/2025 1:17 PM EDT us Faith Wu MD POINT OF CARE TEST ENTER/E DIT ORDERABLES Final Result [facility] [address] [place] [phone] * POCT Rapid Covid-19 BinaxNOW (04/14/2025 1:16 PM EDT) Rapid COVID Ag Negative QC Media Lot # [id number] Lot# Expiration Date Swab 04/14/2025 1:16 PM EDT Faith Wu MD POINT OF CARE TEST ENTER/E DIT ORDERABLES Final Result * POCT Rapid Strep A LARRY ID NOW (04/14/2025 1:15 PM EDT) Rapid Strep A Screen Negative Negative, None Detected QC Media Lot # [id number] Lot# Expiration Date Swab 04/14/2025 1:1 5 PM EDT us Faith Wu MD POINT OF CARE TEST ENTER/E DIT ORDERABLES Final Result documented in this encounter Visit Diagnoses Diagnosis Acute URI- Primary Acute upper respiratory infections of unspecified site Sore throat Acute pharyngitis Acute cough COPD exacerbation ([facility]/HCC) (HCC) Obstructive chronic bronchitis with exacerbation documented [...] documented as of this encounter Care Teams Medical Assistant Internal Medicine Relationship Specialty Start Date End Date Sandra Neal CNP [address] [place] [address] PCP - General Family Medicine 04/14/25 documented as of this encounter
--- OUTSIDE RECORDS SUMMARY | 2025-04-14 16:44 | XMS_ITS | Encounter Summary ---
Author Organization [employer] Address [address] [place] [address] [address] [place] [address] Care Team Providers Care Chronic Specialist Name Role Phone Davina Marie MD Primary Care Provider [phone] Sandra Neal CNP Primary Care Provider [phone] Reason for Visit * Reason Comments Med Refill Encounter Details Date Type Department Care Team (Late st Contact Info) Description 07/03/2022 Refill [facility] [address] [place] [address] Davina Marie MD [address] [place] [address] Anemia, unspecified type Social History Tobacco Use [...] type documented in this encounter Care Teams Chronic Specialist Relationship Specialty Start Date End Date Davina Marie MD [address] [place] [address] PCP - General Family Medicine 12/01/19 04/13/25 Sandra Neal CNP [address] [place] [address] PCP - General Family Medicine 04/14/25 documented as of this encounter
--- OUTSIDE RECORDS SUMMARY | 2025-04-14 16:44 | XMS_ITS | Encounter Summary ---
Author Organization [facility] Address [address] [place] [address] Care Team Providers Care Revenue Integrity Analyst Name Role Phone Services-[facility] Care Provider Bradley Juan MD Unavailable [phone] Yusra Barton APRN Primary Care Provider [phone] Encounter Details Date Type Department Care Team (Late st Contact Info) Description 04/06/2018 Telephone [facility] [address] [phone] Lisa Damon RT [address] [place] [address] Social History Tobacco Use Types Packs/Day [...] on filedocumented in this encounter Care Teams Revenue Integrity Analyst Relationship Specialty Start Date End Date Services-[facility] [address] [place] [address] PCP - General Internal Medicine 05/26/17 05/24/18 Yusra Barton APRN [address] [place] [address] PCP - General Family Medicine 05/25/18 Bradley Juan MD [address] [place] [address] Physician Cardiovascular Disease 07/08/17 documented as of this encounter
--- OUTSIDE RECORDS SUMMARY | 2025-04-14 16:44 | XMS_ITS | Clinical Summary ---
Author Organization [employer] Address [address] [facility] [address] [place] [address] Care Team Providers Care Wood Preparation Supervisor Name Role Phone Sandra Neal CNP Primary Care Provider [phone] Allergies Active Allergy Reactions Criticality Noted Date [...] (one) time for 1 dose. 75 mL Active albuterol 108 (90 Base) MCG/ACT inhaler Inhale 2 puffs every 4 (four) hours if needed for wheezing. 18 g 2 025 2025 Active fluticasone-sha meterol (Advair) 230-21 MCG/ACT inhaler Inhale 2 puffs in the morning and at bedtime. Rinse mouth with water after use to reduce aftertaste and incidence of candidiasis. Do not swallow. 12 g 025 2025 Active rosuvastatin (Crestor) 20 MG tabletIndicatio ns:Constipation , unspecified constipation type TAKE ONE TABLET EVERY MORNING 30 tablet Active docusate sodium (Colace) 100 MG capsuleIndicati ons:Anemia, unspecified type TAKE ONE CAPSULE TWICE DAILY IN THE MORNING AND AT BEDTIME 180 capsule 3 025 Active topiramate (Topamax) 100 MG tabletIndicatio ns:Acute intractable headache, unspecified headache type TAKE ONE TABLET EVERY NIGHT AT BEDTIME 90 tablet 1 Active gabapentin (Neurontin) 300 MG capsule Take 1 capsule by mouth 2 times daily. Active riboflavin (vitamin B2) 100 mg tablet tablet Take 4 tablets by mouth in the morning. Active topiramate (Topamax) 25 MG tablet Take 2 tablets by mouth in the morning. Active cyclobenzaprine (Flexeril) 10 MG tabletIndicatio ns:Generalized abdominal pain Take 1 tablet (10 mg) by mouth 3 times daily. 30 tablet 025 Active Vitamin D, Ergocalciferol, 47999 units capsule TAKE ONE CAPSULE ONCE WEEKLY FRIDAY MORNING 4 capsule 11 025 Active cetirizine (ZyrTEC) 10 MG tabletIndicatio ns:Gastroesopha geal reflux disease without esophagitis TAKE ONE TABLET EVERY NIGHT AT BEDTIME 90 tablet 1 025 Active losartan (Cozaar) 100 MG tablet TAKE ONE TABLET EVERY MORNING 90 tablet 025 Active metoprolol tartrate (Lopressor) 50 MG tabletIndicatio ns:Gastroesopha geal reflux disease without esophagitis TAKE ONE TABLET TWICE DAILY IN THE MORNING AND AT BEDTIME WITH FOOD 180 tablet 3 Active omeprazole (PriLOSEC) [address] capsuleIndicati ons:Benign hypertension TAKE ONE CAPSULE IN THE MORNING AND EVENING BEFORE MEALS 180 capsule 1 Active montelukast (Singulair) 10 MG tablet TAKE [...] THE MORNING AND EVENING 60 tablet 3 Active amLODIPine (Norvasc) 5 MG tablet TAKE ONE TABLET EVERY MORNING 90 tablet Active Multiple Vitamins-Iron (Tab-A-Bing/Iro n) tablet TAKE ONE TABLET EVERY NIGHT AT BEDTIME 90 tablet Active cyanocobalamin (Vitamin B-12) 500 MCG tabletIndicatio ns:Atrial fibrillation, unspecified type (CMS/HCC) (HCC) TAKE ONE TABLET EVERY MORNING 90 tablet Active ondansetron (Zofran) 4 MG tablet Take 4 mg by mouth every 8 (eight) hours if needed for nausea or vomiting. Active sucralfate (Carafate) 1 GM/10ML suspension Take 10 mL by mouth every 6 (six) hours if needed. Active dicyclomine (Bentyl) 10 MG capsule Take 1 capsule (10 mg) by mouth 4 times daily. 120 capsule 11 025 2025 Active Eliquis 5 MG tabletIndicatio ns:Unspecified atrial fibrillation (CMS/HCC) (HCC) TAKE ONE TABLET TWICE DAILY IN THE MORNING AND AT BEDTIME 60 tablet Active predniSONE (Deltasone) 20 MG tabletIndicatio ns:COPD exacerbation (CMS/HCC) (HCC) 2 tabs po daily for 5 days 10 tablet 10/30/2 025 Active dicyclomine (Bentyl) 10 MG capsule Take 1 capsule (10 mg) by mouth 4 times daily. 120 capsule 11 025 2024 Discontinued(R eorder (will not trigger notification to Pharmacy)) Eliquis 5 MG tabletIndicatio ns:Unspecified atrial fibrillation ([facility]) ([facility]) TAKE ONE TABLET TWICE DAILY IN THE MORNING AND AT BEDTIME 60 tablet 025 2024 Discontinued Hospital, Clinic, or Other Facility Administered Medication Ordered Dose Route Frequency Start Date End Date Status ipratropium-albutero l (Duo-Neb) 0.5-2.5 mg/3 mL nebulizer solution 3 mgIndications:Acute cough 3 mg NEBULIZATION Once 04/14/2025 04/14/2025 Ended Active Problems Problem Noted Date Diagnosed Date [...] Morbid obesity with BMI of 45.0-49.9, adult ([facility] /[facility]) 03/07/2023 Mononeuropathy, unspecified 03/07/2023 Headache 03/07/2023 Assessment & Plan (03/07/2023 9:47 AM EDT): Patient will be given Rwznbulflg-Sxqoleoxtthtm-Knlixvws to treated headaches. 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 Will send prednisone, and refill controller and KIRA. Given patient has issus with coordinating her breaths when she has an excerbation with kira, will send neb solution and machine. Seizures ([facility]) 11/21/2022 Atrial fibrillation ([facility]) 07/31/2022 Benign hypertension 07/31/2022 Assessment & Plan [...] October 2018: surgery for ovarian torsion at [facility] Migraine 08/13/2018 Overview (07/31/2022): Overview Note: Migraine #[id number]# EXT_ID: [id number] Low back pain 10/29/2017 Overview (03/07/2023): Overview Note: Low back pain #127129# EXT_ID: [id number] Chest pain 07/08/2017 Restless leg syndrome 06/12/2017 Overview (07/31/2022): Overview Note: Restless leg syndrome #[id number]# EXT_ID: [id number] Osteoarthrosis involving lower leg 06/12/2017 Overview (03/07/2023): Overview Note: Osteoarthritis of knees, bilat #[id number]# EXT_ID: [id number] Encounters Date Type Department Care Team Description 04/14/2025 1:00 PM EDT Office Visit [facility] [address] [place] [address] Faith Wu MD Acute URI (Primary Dx); Sore throat; Acute cough; COPD exacerbation (CMS/HCC) ([facility]) 04/14/2025 Results Follow-Up [facility] [address] [address] Faith Wu MD XR Chest 2 Views 04/14/2025 Telephone [facility] [address] [address] Faith Wu MD 04/14/2025 Travel 03/24/2025 Refill [facility] [address] [place] [address] Davina Marie MD Unspecified atrial fibrillation (CMS/HCC) ([facility]) 03/16/2025 10:15 AM EDT Telemedicine [facility] [address] [place] [address] Chandu Syzmanski MD Abdominal bloating (Primary Dx) 03/15/2025 3:00 PM EDT Telemedicine [facility] [address] [place] [address] Faith Boston RN Abdominal bloating; Gastroesophageal reflux disease without esophagitis 03/04/2025 Orders Only GENERIC EXTERNAL DATA DEPARTMENT Provider, Generic External Data 02/22/2025 Refill [facility] [address] [place] [address] Davina Marie MD Unspecified atrial fibrillation (CMS/HCC) 02/20/2025 Orders Only GENERIC EXTERNAL DATA DEPARTMENT Provider, Generic External Data 01/24/2025 Refill [facility] [address] [facility] [place] [address] Davina Marie MD Unspecified atrial fibrillation (CMS/HCC) 01/12/2025 Refill [facility] [address] [facility] [place] [address] Davina Marie MD Atrial fibrillation, unspecified type ([facility]/HCC) from Last 3 Months Immunizations Immunization Administration [...] Disability Screening 1970 Alcohol/Substance Use Screening 1984 Mammogram 2012 Depression Monitoring 03/25/2024 09/24/2023, 024 Influenza Vaccine (#1) 2025 , 02/26/2023, 07/18/2022, Additional history exists Cervical Cancer Screening 09/07/2025 HPV/Cotest 09/07/2025 09/07/2020 Pap Smear 09/07/2025 09/07/2020 SDOH Screening 12/31/2025 12/31/2024 Tobacco Screening 04/14/2026 04/14/2025 Lipid Panel 09/23/2028 09/24/2023, 03/16, 08/20/2021 DTaP/Tdap/Td Vaccines (3 - Td or Tdap) 12/12/2033 12/13/2023, 10/19/2013 RSV Patients and Patients Aged 60 years or older (1 - 1-dose 75+ series) 2047 HIV Screening Completed 01/01/2021, 09/07/2020 Zoster Vaccines Completed 03/25/2023, 01/09/2023 Hepatitis C Screening Completed 04/02/2023 COVID-19 Vaccine Completed 03/23/2024, 07/2022, 07/18/2022, Additional history exists Hepatitis B Vaccines Completed 03/24/2024, 12/13/19 Pneumococcal Vaccine: 50+ Years Completed 12/21/2024, 12/30/2019 HIB Vaccines Aged Out No longer eligi [...] Routine 04/14/2025 1:15 PM EDT Sore throat XR CHEST 2 VIEWS Routine 03/05/2025 12:1 [...] NOW (LARRY) Routine 02/20/2025 2:11 PM EDT LIPID PANEL, STANDARD Routine 09/24/2023 10:04 AM EDT Seizures (CMS/HCC) Longstanding persistent atrial fibrillation (CMS/HCC) HEPATITIS C AB W/REFL TO HCV RNA, QN, PCR Routine 04/02/2023 8:28 AM EDT Seizures (CMS/HCC) ZZZ HISTORICAL HIV AB/AG Routine 01/01/2021 10:40 AM EDT HM PAP/HPV Routine 09/07/2020 from Last 3 Months or Most Recently Relevant to Health Maintenance Results * XR Chest 2 Views (04/14/2025 2:00 PM EDT) Only the most recent of2 resultswithin the time period is included. Anatomical Region Laterality Modality Chest Radiographic Shasta ging 04/14/2025 2:00 PM EDT Narrative 04/14/2025 2:10 [place] [address] XRay Report Signed Patient: Tamanna Gutierrez MR#: [id number] : 1970 Acct:[id number] Age/Sex: 55 / F ADM Date: 04/14/25 Loc: HO.HHCX Attending Dr: Faith Wu MD Ordering Physician: Faith Wu MD Date of Service: 04/14/25 Procedure(s): XR chest 2V Accession Number(s): [id number] cc: Faith Wu MD Reason for Exam: [...] 04/14/25 1408 DD/ 1400 TD/TT: 04/14/25 1402 Wearing Apparel Folder: SANTI Procedure Note Donotuseinterpreter, Image - 04/14/[address] [address] XRay Report Signed Patient: Tamanna GutierrezMR#: [id number] : 1970Acct:[id number] Age/Sex: 55 / FADM Date: 04/14/25 Loc: HO.HHCX Attending Dr: Faith Wu MD Ordering Physician: Faith Wu MD Date of Service: 04/14/25 Procedure(s): XR chest 2V Accession Number(s): [id number] cc: Faith Wu MD Reason for Exam: [...] 04/14/25 1408 DD/ 1400 TD/TT: 04/14/25 1402 Wearing Apparel Folder: SANTI Faith Wu MD IMG XR PROCEDURES Final Re sult * POCT Rapid Influenza B LARRY ID NOW (04/14/2025 1:17 PM EDT) Influenza B Negative Negative, Indeterminate [facility] QC Media Lot # [id number] [facility] Lot# Expiration Date [facility] Swab 04/14/2025 1:17 PM EDT Faith Wu MD POINT OF CARE TEST ENTER/E DIT ORDERABLES Final Result Performing Organization Address City/[facility]/ZIP Co de Phone Number [facility] [address] [place] [phone] * POCT Rapid Influenza A LARRY ID NOW (04/14/2025 1:17 PM EDT) Influenza A Negative Negative, Indeterminate [facility] QC Media Lot # [id number] [facility] Lot# Expiration Date [facility] Swab 04/14/2025 1:17 PM EDT Faith Wu MD POINT OF CARE TEST ENTER/E DIT ORDERABLES Final Result Performing Organization Address [facility]/ZIP Co de Phone Number [facility] [address] [place] [phone] * POCT Rapid Covid-19 BinaxNOW (04/14/2025 1:16 PM EDT) Rapid COVID Ag Negative QC Media Lot # [id number] Lot# Expiration Date ,026 Swab 04/14/2025 1:16 PM EDT Faith Wu MD POINT OF CARE TEST ENTER/E DIT ORDERABLES Final Result * POCT Rapid Strep A LARRY ID NOW (04/14/2025 1:15 PM EDT) Rapid Strep A Screen Negative Negative, None Detected QC Media Lot # [id number] Lot# Expiration Date Swab 04/14/2025 1:15 PM EDT Faith Wu MD POINT OF CARE TEST ENTER/E DIT ORDERABLES Final Result * Influenza A B2 ID NOW (Larry) (03/04/2025 10:40 PM EDT) Only the most recent of2 resultswithin the time period is included. IDNOW SERIAL# [id number] [facility] Influenza A Negative Negative [facility] Influenza B2 Negative Negative [facility] Influenza A B2 Note See Note [facility] Comment:The Larry ID NOW In [...] LAB MICROBIOLOGY - GENERAL ORDERABLES Final Result [facility] [address] [place] [phone] * COVID-19 ID NOW (LARRY) (03/04/2025 10:40 PM EDT) Only the most recent of2 resultswithin the time period is included. IDNOW SERIAL# [id number] [facility] COVID-19 TEST Negative Negative [facility] COVID-19 NOTE See Note [facility] Comment: Results are for the identification of SARS-CoV2 RNA. TheSARS-CoV2 RNA is generally detectable in respiratory samplesduring the acute phase of infection. Positive results areindicative of the presence of SARS-CoV-2 RNA; clinicalcorrelation with patient history and other diagnosticinformation is necessary to determine patient infectionstatus. Positive results do not rule out bacterial infectionor co- infection with other viruses.Testing facilities within the [facility] and itsterritories are required to report [...] use by authorized laboratories.Testing performed on the [facility] ID NOW utilizing NAAT. 03/04/2025 10:4 0 PM EDT 03/04/2025 10:44 PM EDT us Generic External Data Provider LAB MOLECULAR CLEOPATRA GNOSTICS ORDERABLES Final Result [facility] [address] [place] [address] [phone] * (ABNORMAL) CBC auto differential (03/04/2025 10:40 PM EDT) White Blood Count 18.1(H) 4.8 - 10.8 X10*3/uL [facility] Red Blood Count 4.53 4.20 - 5.50 X10*6/uL [facility] Hemoglobin 13.4 12.0 - 16.0 g/dl [facility] Hematocrit 39.9 37.0 - 47.0 % [facility] Mean Corpuscular Volume 88.1 80.0 - 98.0 fL [facility] Mean Corpuscular Hemoglobin 29.6 27.0 - 33.0 pg [facility] Mean Corpuscular HGB Conc 33.6 31.0 - 35.0 g/dl [facility] Red Cell Distribution Width 14.5 11.0 - 16.0 % [facility] Platelet Count 464(H) 160 - 400 X10*3/uL [facility] Mean Platelet Volume 10.0 9.4 - 12.3 fL [facility] Neutrophils Percent Auto 70.7 45 - 73 % [facility] Imm Gran Pct Auto 0.4 0.0 - 0.4 % [facility] Lymphocytes Percent Auto 22.2 20 - 40 % [facility] Monocytes Percent Auto 4.5 2 - 11 % [facility] Eosinophils Percent Auto 1.9 0 - 4 % [facility] Basophils Percent Auto 0.3 0 - 2 % [facility] NRBC Pct Auto 0.0 0.0 - 0.2 /100WBC [facility] Neutrophils Absolute Auto 12.8(H) 2.0 - 8.3 x10*3/uL [facility] Imm Gran Abs Auto 0.08(H) 0.00 - 0.03 X10*3/uL [facility] Lymphocytes Absolute Auto 4.0 1.2 - 4.9 X10*3/uL [facility] Monocytes Absolute Auto 0.8 0.1 - 1.2 X10*3/uL [facility] Eosinophils Absolute Auto 0.3 0.0 - 0.4 X10*3/uL [facility] Basophils Absolute Auto 0.1 0.0 - 0.2 X10*3/uL [facility] NRBC Abs Auto 0.000 0.0 - 0.012 X10*3/uL [facility] 03/04/2025 10:4 0 PM EDT 03/04/2025 10:44 PM EDT Generic External Data Provider LAB BLOOD ORDERAB LES Final Result Performing Organization Address [facility] de Phone Number [facility] [address] [place] [phone] * Magnesium (03/04/2025 10:40 PM EDT) Pathologist [facility] Magnesium 2.1 1.6 - 2.6 mg/dL [facility] 03/04/2025 10:4 0 PM EDT 03/04/2025 10:44 PM EDT Generic External Data Provider LAB BLOOD ORDERAB LES Final Result Performing Organization Address [facility] Phone Number [facility] [address] [place] [phone] * Lipase (03/04/2025 10:40 PM EDT) Pathologist [facility] Lipase 8 8 - 78 U/L [facility] 03/04/2025 10:4 0 PM EDT 03/04/2025 10:44 PM EDT Generic External Data Provider LAB BLOOD ORDERAB LES Final Result Performing Organization Address [facility] Phone Number [facility] [address] [place] [phone] * (ABNORMAL) Comprehensive Metabolic Panel (03/04/2025 10:40 PM EDT) [facility] Sodium 142 135 - 145 mmol/L [facility] Potassium 4.2 3.3 - 5.1 mmol/L [facility] Comment:Slight Hemolysis.Int erpret result with caution. Chloride 109(H) 96 - 108 mmol/L [facility] Carbon Dioxide 24 22 - 29 mmol/L [facility] Anion Gap 13 12 - 20 [facility] Urea Nitrogen (BUN) 17(H) 9 - 16 mg/dL [facility] Creatinine, Serum 0.76 0.5 - 1.4 mg/dL [facility] Creatinine Clr Calc Pharmacy 128.7 [facility] Comment:Provided height and weight: 175.26 cm,136.078 kg.eGFR (calculated from the MDRD study equation) and eCrCl(calculated from the Cockcroft-Gault equation) are based ondifferent parameters and may not yield comparable results.If eCrCl result is absurd, please check patient'sheight/weight. Estimated Glomerular Filt Rate >60 [facility] Comment:Chronic Kidney Disea se: Estimated GFR < 60 mL/min/1.70a9Zxekax Kidney Disease: Estimated GFR < 15 mL/min/1.73m2 Glucose 120(H) 60 - 115 mg/dL [facility] Calcium 9.4 8.4 - 10.2 mg/dL [facility] Bilirubin, Total 0.5 0.0 - 1.0 mg/dL [facility] Aspartate Amino Transferase 36(H) 5 - 31 U/L [facility] Comment:Slight Hemolysis.Int erpret result with caution. Alanine Aminotransferase 31 0 - 31 U/L [facility] Total Protein 8.0 6.5 - 8.0 g/dL [facility] Albumin Level 4.5 3.5 - 5.0 g/dL [facility] Alkaline Phosphatase 135(H) 39 - 117 U/L [facility] 03/04/2025 10:4 0 PM EDT 03/04/2025 10:44 PM EDT us Generic External Data Provider LAB BLOOD ORDERAB LES Final Result [facility] [address] [place] [phone] [phone] * XR Knee 4+ Views Bilateral (02/20/2025 3:13 PM EDT) Anatomical Region Laterality Modality Lower Extremities, Knee Bilateral Radiogra phic Imaging 02/20/2025 3:13 PM EDT Narrative 02/20/2025 3:14 PM EDT [address] [address] XRay Report Signed Patient: Tamanna Gutierrez MR#: [id number] : 1970 Acct:[id number] Age/Sex: 54 / F ADM Date: 02/20/25 Loc: HO.ED Attending Dr: Ordering Physician: Feliz Garcia Date of Service: 02/20/25 Procedure(s): XR Knee Aldair 4V Accession Number(s): [id number] cc: Feliz Garcia; Davina Marie MD Reason [...] to the right and left knees. 2. Pnob-mb-iklsepqk tricompartment degenerative changes of the bilateral knees. [...] by Shmuel Barton MD in OV> 02/20/25 151 DD/ 12 TD/TT: 02/20/251512 Wearing Apparel Folder: Procedure Note Donotuseinterpreter, Image - 02/20/2025 [place] [address] [place] [address] XRay Report Signed Patient: Tamanna GutierrezMR#: [id number] : 1970Acct:[id number] Age/Sex: 54 / FADM Date: 02/20/25 Loc: HO.ED Attending Dr: Ordering Physician: Feliz Garcia Date of Service: 02/20/25 Procedure(s): XR Knee Aldair 4V Accession Number(s): [id number] cc: Feliz Garcia; Davina Marie MD Reason [...] to the right and left knees. 2. Rvmn-lb-rwsbkryt tricompartment degenerative changes of the bilateral knees. [...] by Shmuel Barton MD in OV> 02/20/25 1513 DD/ 151 TD/TT: 02/20/251512 Wearing Apparel Folder: [facility] External Provider IMG XR PROCEDURES Edited Result - Final * XR Chest 1 View (02/20/2025 3:09 PM EDT) Anatomical Region Laterality Modality Chest Radiographic Shasta ging 02/20/2025 3:09 PM EDT Narrative 02/20/2025 3:11 PM EDT [address] [address] XRay Report Signed Patient: Tamanna Gutierrez MR#: [id number] : 1970 Acct:[id number] Age/Sex: 54 / F ADM Date: 02/20/25 Loc: HO.ED Attending Dr: Ordering Physician: Feliz Garcia Date of Service: 02/20/25 Procedure(s): XR chest 1V Accession Number(s): [id number] cc: Feliz Garcia; Davina Marie MD Reason [...] 02/20/25 1510 DD/ 1509 TD/TT: 02/20/25 1509 Wearing Apparel Folder: Procedure Note Donotuseinterpreter, Image - 02/20/[address] [address] XRay Report Signed Patient: Tamanna GutierrezMR#: [id number] : 1970Acct:[id number] Age/Sex: 54 / FADM Date: 02/20/25 Loc: HO.ED Attending Dr: Ordering Physician: Feliz Garcia Date of Service: 02/20/25 Procedure(s): XR chest 1V Accession Number(s): [id number] cc: Feliz Garcia; Davina Marie MD Reason [...] 02/20/25 1510 DD/ 1509 TD/TT: 02/20/25 1509 Wearing Apparel Folder: [facility] External Provider IMG XR PROCEDURES Edited Result - Final * (ABNORMAL) Lipid Panel, Standard (09/24/2023 10:04 AM EDT) Triglycerides 183(H) <150 mg/dL [facility] Comment:Desirable Triglyceri de: less than 150 mg/dLBorderline High Triglyceride 150-199 mg/dLHigh Triglyceride: 200-499 mg/dLVery High Triglyceride: greater than or equal to 5OO mg/dL Cholesterol 139 <200 mg/dL [facility] Comment:Desirable Cholestero l: less than 200 mg/dLBorderline High Cholesterol: 200-239 mg/dLHigh Cholesterol: greater than 239 mg/dL LDL Cholesterol Calculated 60 <100 mg/dL [facility] Comment:Desirable LDL: less than 100 mg/dLNear Optimal/Above Optimal LDL: 110- 129 mg/dLBorderline High LDL: 130-159 mg/dLHigh LDL: 160-189 mg/dLVery High LDL: greater than or equal to 190 mg/dL HDL Cholesterol 43 >40 mg/dL [facility] Comment:Desirable HDL: great er than 40 mg/dL Note: This HDL assay may give artificially low results in patients with liver disease. Blood Venous blood specimen / Unknown 09/24/2023 10:04 AM EDT 09/24/2023 2:32 PM EDT Davina Marie MD LAB BLOOD ORDERABLES Final Resul t Performing Organization Address [facility] Co de Phone Number [facility] [address] [place] [phone] * Hepatitis C Antibody with Reflex to HCV, RNA, Quantitative, Real-Time PCR (04/02/2023 8:28 AM EDT) Hepatitis C Antibody Nonreactive Nonreactive [facility] Comment:Antibodies to HCV no t detected; does not exclude early acuteHCV infection. Blood Venous blood specimen / Unknown 04/02/2023 8:28 AM EDT 04/02/2023 8:36 AM EDT Davina Marie MD LAB BLOOD ORDERABLES Final Resul t Performing Organization Address [facility] Co de Phone Number [facility] [address] [place] [phone] * HIV AB/AG (01/01/2021 10:40 AM [...] of detection of this assay. The [employer] HIV Ag/Ab Combo assay result and supplemental assay results should be interpreted in conjunction with the patient's clinical presentation, history and other laboratory results. If the results are inconsistent with clinical evidence, additional testing is suggested to confirm the result. 01/01/2021 10:4 0 AM EDT Ej Allred MD HISTORICAL/NON ORDERAB LE LABS Final Result [facility] SYSTEM [facility] Anywhere [address] * HM PAP/HPV (09/07/2020) Pap Smear 1. NILM 1. NILM HPV Not Detected Undetected, Indeterminat e, Quantitative , Not Detected Narrative Deedee Jo - 09/07/2020 Results in care everywhere Historical Provider HEALTH MAINTENANCE Edited Result - Final from Last 3 Months or Most Recently Relevant to Health Maintenance Insurance [facility] [employer] MEDIC[employer] Care Teams Wood Preparation Supervisor Relationship Specialty Start Date End Date Sandra Neal CNP [address] [place] [address] PCP - General Family Medicine 04/14/25
--- OUTSIDE RECORDS SUMMARY | 2025-04-14 16:44 | XMS_ITS | Encounter Summary ---
Author Organization [employer] Address [address] [place] [address] 7t [place] [address] Care Team Providers Care Etcher Photoengraving Name Role Phone Davina Marie MD Primary Care Provider [phone] Sandra Neal CNP Primary Care Provider [phone] Encounter Details Date Type Department Care Team (Late st Contact Info) Description 01/21/2023 Orders Only [facility] MED & PEDS [address] [place], [place] [phone] Tamanna Villalpando LPN Social History Tobacco Use [...] on filedocumented in this encounter Care Teams Etcher Photoengraving Relationship Specialty Start Date End Date Davina Marie MD [address] [place] [address] PCP - General Family Medicine 12/01/19 04/13/25 Sandra Neal CNP [address] [place] [address] PCP - General Family Medicine 04/14/25 documented as of this encounter
--- OUTSIDE RECORDS SUMMARY | 2025-04-14 16:44 | XMS_ITS | Encounter Summary ---
Author Organization [facility] Address [address] [place] [address] Care Team Providers Care Carbon Brush Maker Name Role Phone Bradley Juan MD Unavailable Yusra Barton APRN Primary Care Provider [phone] Encounter Details Date Type Department Care Team (Late st Contact Info) Description 09/15/2018 Scanned Document [facility] PATIENT SERVICES REPRESENTATIVE [address] [place] [id number] Provider, MD Umm [address] [place] [address] Social History Tobacco Use Types Packs/Day Years [...] on filedocumented in this encounter Care Teams Carbon Brush Maker Relationship Specialty Start Date End Date Yusra Barton APRN [address] [place] [address] PCP - General Family Medicine 05/25/18 Bradley Juan MD [address] [place] [address] Physician Cardiovascular Disease 07/08/17 documented as of this encounter
--- OUTSIDE RECORDS SUMMARY | 2025-04-14 16:44 | XMS_ITS | Encounter Summary ---
Author Organization [employer] Address [address] [facility] 7t [place] [address] Care Team Providers Care Senior Asset Manager Name Role Phone Davina Marie MD Primary Care Provider [phone] Sandra Neal CNP Primary Care Provider [phone] Encounter Details Date Type Department Care Team (Late st Contact Info) Description 07/30/2022 Orders Only [facility] MEDICINE [address] [place] [address] Oumou Carney LPN Social History Tobacco Use [...] on filedocumented in this encounter Care Teams Senior Asset Manager Relationship Specialty Start Date End Date Davina Marie MD [address] [place] [address] PCP - General Family Medicine 12/01/19 04/13/25 Sandra Neal CNP [address] [place] [address] PCP - General Family Medicine 04/14/25 documented as of this encounter
--- OUTSIDE RECORDS SUMMARY | 2025-04-14 16:44 | XMS_ITS | Encounter Summary ---
Author Organization [employer] Address [address] [facility] [address] [place] [address] Care Team Providers Care Petroleum Blending Plant Operator Name Role Phone Davina Marie MD Primary Care Provider [phone] Sandra Neal CNP Primary Care Provider [phone] Encounter Details Date Type Department Care Team ([facility] st Contact Info) Description 11/25/2022 Orders Only [facility] CHC MED & PEDS [address] [place] [address] Davina Marie MD [address] [place] [address] Social History Tobacco Use Types Packs/Day Years [...] on filedocumented in this encounter Care Teams Petroleum Blending Plant Operator Relationship Specialty Start Date End Date Davina Marie MD [address] [place] [address] PCP - General Family Medicine 12/01/19 04/13/25 Sandra Neal CNP [address] [place] [address] PCP - General Family Medicine 04/14/25 documented as of this encounter
--- OUTSIDE RECORDS SUMMARY | 2025-04-14 16:44 | XMS_ITS | Clinical Summary ---
Author Organization [facility] it Address [address] [place] [address] Care Team Providers Care Mental Health Consultant Name Role Phone Davina Marie MD Primary Care Provider [phone] Surgical History Surgery Date Site/Laterality Comments OTHER SURGICAL HISTORY PROCEDURE: [place] ANES HRNA REPAIR UPR ABD TABDL RPR DIPHRG HRNA SALPINGOOPHORECTOMY 10/2018 Left PROCEDURE: [place] LAPAROSCOPY W/RMVL ADNEXAL STRUCTURES; COMMENT: ovarian torsion OTHER SURGICAL HISTORY 2016 PROCEDURE: [place] DILATION & CURETTAGE DX&/THER NONOBSTETRIC Medical History [...] Last Done Comments Breast Cancer Screening 1972 Colorectal Cancer Screening: Colonoscopy 1972 DTaP,Tdap,and Td Vaccines (1 - Tdap) 1991 Hepatitis B Vaccines (1 of 3 - 19+ 3-dose series) 1991 Pneumococcal Vaccine: 50+ Ye ars (1 of 1 - PCV) 2022 Zoster Vaccines (1 of 2) 2022 HIV Screening 05/26/2022 Hepatitis C Screening 05/26/2022 Social Influencers of Health Screening 05/26/2022 Cervical Cancer Screening: P ap Smear 09/08/2023 09/07/2020 Depression Screening 06/16/2024 COVID-19 Vaccine ( - 2023-2 5 season) 2025 Influenza Vaccine (#1) 2025 RSV Immunization Adult Patie nts (1 - 1-dose 75+ series) 2047 HIB Vaccines Aged Out No longer eligi [...] RESULTING AGENCY - 09/11/2020 4:30 PM EDT [id number] THINPREP PAP, IMAGED: NEGATIVE FOR SQUAMOUS INTRAEPITHELIAL [...] NONE, LMP 08/28/20 [Z12.4, Z12.31] us Sabrina Jorge [facility] CYTOLOGY ORDERABLES Final Result HISTORICAL TESTING LAB RESULTING AGENCY from Last 3 Months or Most Recently Relevant to Health Maintenance Advance Directives Documents on File Type Date Recorded Patient Peoplesoft Taleo Manager Expl anation Health Care Decision (hx) 12/14/2020 [...] (hx) 12/14/2020 AD SCHUMACHER DIRECTIVE Care Teams Mental Health Consultant Relationship Specialty Start Date End Date Davina Marie MD [address] [place] [address] PCP - General 06/27/21
--- OUTSIDE RECORDS SUMMARY | 2025-04-14 16:44 | XMS_ITS | Encounter Summary ---
Author Organization [employer] Address [address] [facility] [address] [address] 7[address] [place] [address] Care Team Providers Care Grappler Name Role Phone Davina Marie MD Primary Care Provider [phone] Sandra Neal CNP Primary Care Provider [phone] Encounter Details Date Type Department Care Team (Late st Contact Info) Description 07/31/2022 Orders Only [facility] MEDICINE [address] [place] [address] Davina Marie MD [address] [place], [place] [phone] Social History Tobacco Use Types Packs/Day Years [...] on filedocumented in this encounter Care Teams Grappler Relationship Specialty Start Date End Date Davina Marie MD [address] [place] [address] PCP - General Family Medicine 12/01/19 04/13/25 Sandra Neal CNP [address] [place] [address] PCP - General Family Medicine 04/14/25 documented as of this encounter
--- OUTSIDE RECORDS SUMMARY | 2025-04-14 16:44 | XMS_ITS | Encounter Summary ---
Author Organization [employer] Address [address] [facility] [address] 7[address] [place] [address] Care Team Providers Care Brush Washer Name Role Phone Sandra Neal CNP Primary Care Provider [phone] Encounter Details Date Type Department Care Team (Latest Contact Info) Description 04/14/2025 Travel Social History Tobacco Use Types Packs/Day Years [...] documented as of this encounter Care Teams Brush Washer Relationship Specialty Start Date End Date Sandra Neal CNP [address] [place] [address] PCP - General Family Medicine 04/14/25 documented as of this encounter
--- OUTSIDE RECORDS SUMMARY | 2025-04-14 16:44 | XMS_ITS | Encounter Summary ---
Author Organization [employer] Address [address] [facility] [address] 7t [place] [address] Care Team Providers Care Psychiatric Security Nurse Name Role Phone Sandra Neal CNP Primary Care Provider [phone] Encounter Details Date Type Department Care Team (Late st Contact Info) Description 04/14/2025 Telephone [facility] [address] [place], [place] [phone] Faith Wu MD [address] [place] [address] Social History Tobacco Use Types Packs/Day Years [...] AM EDT documented as of this encounter Miscellaneous Notes * Telephone Encounter - Jelly Caldera RN - 04/14/2025 11:38 AM EDT Assessment: Patient presents to [facility]- [facility] c/o shortness of breath and rib pain reproducible mid sternal chest pain. Symptoms have been present for 3 days. Symptoms are constant. Symptoms are relieved by nothing using nebulizer last used a couple days ago Patient is taking (treatment/meds) albuterol. Recent ED visit or hospitalization: No. VS as follows (if applicable): Temp 97.5 orally HR 68 Resp 17 none BP 146/108 left Arm; Device: Automatic Cuff Size: regular O2 sat 98 % on room air Pain level: 10+, Location: rib Hgt 5 9 Lung sounds (if applicable) no wheezes or crackles and no retractions, Location: bilateral Lungs sound tight Plan of care: Report to Dr Kong Provider evaluation: Yes Patient to return to waiting room to await Provider evaluation in the order of arrival, will be first patient seen after lunch Jelly Caldera RN documented in this encounter Plan of Treatment Not on file documented as of this encounter Visit Diagnoses Not on filedocumented in this encounter Additional Health Concerns Assessment Noted Time PHQ-9 Depression Total Score: 11 024 9:53 AM EDT documented as of this encounter Care Teams Psychiatric Security Nurse Relationship Specialty Start Date End Date Sandra Neal CNP [address] [place] [address] PCP - General Family Medicine 04/14/25 documented as of this encounter
--- OUTSIDE RECORDS SUMMARY | 2025-04-14 16:44 | XMS_ITS | Encounter Summary ---
Author Organization [employer] Address [address] [facility] [address] 7[address] [place] [address] Care Team Providers Care Middle School Band Teacher Name Role Phone Davina Marie MD Primary Care Provider [phone] Sandra Neal CNP Primary Care Provider [phone] Reason for Visit * Reason Comments Med Refill Encounter Details Date Type Department Care Team (Late st Contact Info) Description 11/23/2024 Refill [facility] CHC MED & PEDS [address] [place] [address] Davina Marie MD [address] [place] [address] Unspecified atrial fibrillation (CMS/HCC) Social History Tobacco [...] Visit Diagnoses Diagnosis Unspecified atrial fibrillation (CMS/HCC) (HCC) documented in this encounter Additional Health Concerns Assessment Noted Time PHQ-9 Depression Total Score: 11 024 9:53 AM EDT documented as of this encounter Care Teams Middle School Band Teacher Relationship Specialty Start Date End Date Davina Marie MD [address] [place] [address] PCP - General Family Medicine 12/01/19 04/13/25 Sandra Neal CNP [address] [place] [address] PCP - General Family Medicine 04/14/25 documented as of this encounter
--- OUTSIDE RECORDS SUMMARY | 2025-04-14 16:44 | XMS_ITS | Clinical Summary ---
Author Organization [facility] Address [address] [place] [address] Care Team Providers Care Copy Messenger Name Role Phone Bradley Juan MD Unavailable [phone] Yusra Barton APRN Primary Care Provider [phone] Allergies No known active allergies Medications DULoxetine [...] 50+ (1 of 1 - PCV) 2022 RSV Vaccine 50 years and old er and Patients (1 - Risk 50-74 years 1-dose series) 2022 Zoster (Shingles) Vaccine (1 of 2) 2022 Influenza Vaccine 01/14/2025 COVID-19 Vaccine (1 - season) 2025 Procedures Procedure Name Priority [...] Comment:Negative for intraep ithelial lesion or malignancy. Plate Washer: [facility] Comment: MXD, CT (ASCP) CT screening location: [place] [address] Comment [facility] Comment: EXPLANATORY NOTE: [...] was performed using the APTIMA HPV Assay ([employer] This assay detects E6/E7 viral messenger RNA (mRNA) from 14 high-risk HPV types (16,18,31,33,35,39,45,51,52,56,58,59,66,68). The analytical performance characteristics of this assay have been determined by [facility]. The modifications have not been cleared or approved by the FDA. This assay has been validated pursuant to the CLIA regulations and is used for clinical purposes. 10/14/2018 10:2 2 AM EDT 10/14/2018 10:04 PM EDT Narrative Resulting Agency Comment Performing Organization Information: Site ID: [id number] Name: [facility] Address: [address] [place] [address], [place] [address] Director: Antonio Jj MD Cristela Sanches MD LAB AMB PATH/CYTO ORDERABLES Final Result [facility] [address] [place] [address], [address] [place], [place] [id number] from Last 3 Months or Most Recently Relevant to Health Maintenance Insurance [facility] Advance Directives * Full Code (Latest Code Status on File) Date Activated Date Inactivated Comments 09/12/2018 1:53 AM * Full Code Date Activated Date Inactivated Comments 07/08/2017 11:14 PM 09/11/2018 3:55 PM Care Teams Copy Messenger Relationship Specialty Start Date End Date Yusra Barton APRN [address] [place] [address] PCP - General Family Medicine 05/25/18 Bradley Juan MD [address] [place] [address] Physician Cardiovascular Disease 07/08/17
--- OUTSIDE RECORDS SUMMARY | 2025-04-14 16:44 | XMS_ITS | Clinical Summary ---
Author Organization [facility] Address [address] [place] [address] Phone Care Team Providers Care Securities And Real Estate Director Name Role Phone Davina Marie MD Primary Care Provider [phone] Social History Tobacco Use Types Packs/Day Years Used Date Smoking Tobacco: Never Assessed Sex and Gender Information Value Date Recorded Sex Assigned at Not on file Legal Sex Male 2:32 PM EDT Gender Identity Not on file Sexual Orientation Not on file Plan of Treatment Not on file Medical Devices Not on file Insurance [employer] [address] [place] [address] [employer] Care Teams Securities And Real Estate Director Relationship Specialty Start Date End Date Davina Marie MD [address] [place] [address] PCP - General Family Medicine 02/01/21 Additional Source Comments The information contained in this document represents components of the legal health record. It is not the complete legal health record.[facility]
--- OUTSIDE RECORDS SUMMARY | 2025-04-14 16:44 | XMS_ITS | Encounter Summary ---
Author Organization [employer] Address [address] 7t [place] [address] Care Team Providers Care Candy Dipper Name Role Phone Davina Marie MD Primary Care Provider [phone] Sandra Neal CNP Primary Care Provider [phone] Reason for Visit * Reason Comments Med Refill Encounter Details Date Type Department Care Team (Late st Contact Info) Description 10/23/2023 Refill [facility] CHC MED & PEDS [address] [place] [address] Davina Marie MD [address] [place] [address] Social History Tobacco Use Types Packs/Day Years [...] documented as of this encounter Care Teams Candy Dipper Relationship Specialty Start Date End Date Davina Marie MD [address] [place] [address] PCP - General Family Medicine 12/01/19 04/13/25 Sandra Neal CNP [address] [place] [address] PCP - General Family Medicine 04/14/25 documented as of this encounter
--- OUTSIDE RECORDS SUMMARY | 2025-04-14 16:44 | XMS_ITS | Encounter Summary ---
Author Organization [employer] Address [address] [facility] [facility] [address] 7t [place] [address] Care Team Providers Care Divisional Merchandising Manager Name Role Phone Sandra Neal CNP Primary Care Provider [phone] Encounter Details Date Type Department Care Team ([facility] st Contact Info) Description 04/14/2025 Results Follow-Up [facility] [address] [place] [address] Faith Wu MD [address] [place] [address] XR Chest 2 Views Social History Tobacco Use Types Packs/Day Years [...] is your housing situation today? I have valnetino romero 12/31/[address] you [...] documented as of this encounter Care Teams Divisional Merchandising Manager Relationship Specialty Start Date End Date Sandra Neal CNP [address] [place] [address] PCP - General Family Medicine 04/14/25 documented as of this encounter
--- OUTSIDE RECORDS SUMMARY | 2025-04-14 16:44 | XMS_ITS | Encounter Summary ---
Author Organization [employer] Address [address] [facility] [address] 7[address] [place] [address] Care Team Providers Care Neon Sign Mechanic Name Role Phone Davina Marie MD Primary Care Provider [phone] Sandra Neal CNP Primary Care Provider [phone] Encounter Details Date Type Department Care Team (Late st Contact Info) Description 11/19/2022 Orders Only [facility] CHC MED & PEDS [address] [place] [address] Tamanna Villalpando LPN Social History Tobacco Use [...] on filedocumented in this encounter Care Teams Neon Sign Mechanic Relationship Specialty Start Date End Date Davina Marie MD [address] [place] [address] PCP - General Family Medicine 12/01/19 04/13/25 Sandra Neal CNP [address] [place] [address] PCP - General Family Medicine 04/14/25 documented as of this encounter
--- OUTSIDE RECORDS SUMMARY | 2025-04-14 16:45 | XMS_ITS | Encounter Summary ---
Author Organization [employer] Address [address] [facility] 7t [place] [address] Care Team Providers Care Peoplesoft Programmer Name Role Phone Davina Marie MD Primary Care Provider [phone] Sandra Neal CNP Primary Care Provider [phone] Encounter Details Date Type Department Care Team ([facility] st Contact Info) Description 05/23/2022 Telephone C [facility] MED & PEDS [address] [place], [place] [phone] Davina Marie MD [address] [place] [address] Social History Tobacco Use Types Packs/Day Years [...] on filedocumented in this encounter Care Teams Peoplesoft Programmer Relationship Specialty Start Date End Date Davina Marie MD [address] [place] [address] PCP - General Family Medicine 12/01/19 04/13/25 Sandra Neal CNP [address] [place] [address] PCP - General Family Medicine 04/14/25 documented as of this encounter
== END 2025-04-14 13:35 | disposition home or self-care (01) ==
LOC: HO.HHCX 13:34
PROVIDERS: Visit Provider Family Medicine
DX: R05.1 Acute cough (principal)
CPT/HCPCS: 71046

== ENCOUNTER → 2025-04-14 13:44 | Outpatient (BNV) | payer MEDICARE, MEDICAID, SELFPAY | PROVIDERS: Visit Provider Radiology Diagnostic Radiology | DX: R05.9 Cough, unspecified (principal); R79.89 Other specified abnormal findings of blood chemistry | CPT/HCPCS: 71046 ==

== ENCOUNTER 2025-04-18 12:02 | Emergency (ER) | payer MEDICARE, MEDICAID, SELFPAY ==
--- OUTSIDE RECORDS SUMMARY | 2025-04-14 12:00 | XMS_ITS | Encounter Summary ---
Author Organization [employer] Address [address] 7[address] [place] [address] Care Team Providers Care Pastrycook'S Assistant Name Role Phone Sandra Neal CNP Primary Care Provider [phone] Encounter Details Date Type Department Care Team (Late st Contact Info) Description 04/14/2025 1:00 PM EDT Office Visit [facility] [address] [place] [phone] Faith Wu MD [address] [place] [address] Acute URI (Primary Dx); Sore throat; Acute cough; COPD exacerbation (CMS/HCC) (HCC) Social History Tobacco Use Types Packs/Day Years [...] AM EDT documented as of this encounter Last Filed Vital Signs Vital Sign Reading Time Taken Comments Blood Pressure 137/85 04/14/2025 1:16 PM EDT Pulse 71 04/14/2025 11:35 AM EDT Temperature 36.4 C (97.5 F) 04/14/2025 11:35 AM EDT Respiratory Rate 17 04/14/2025 11:35 AM EDT Oxygen Saturation 98% 04/14/2025 11:35 AM EDT Inhaled Oxygen Concentration - - Weight - - Height - - Body Mass Index - - documented in this encounter Progress Notes * Faith Wu MD - 04/14/2025 1:00 PM EDT Subjective History was provided by the patient. Tamanna Gutierrez is a 55 y.o. female with past medical history of COPD, atrial fibrillation and hypertension who presents for evaluation of symptoms of a URI. Symptoms include cough, runny nose, chills, sore throat, and sick contacts. Onset of symptoms was 3 days ago, unchanged since that time. Associated negative symptoms include nausea, vomiting, and diarrhea. Evaluation to date: none. Treatment to date: none Objective Vitals: 04/14/25 1135 04/14/25 1316 BP: (!) 146/108 137/85 BP Location: Left arm Patient Position: Sitting BP Cuff Size: Large adult Pulse: 71 Resp: 17 Temp: 97.5 ??F (36.4 ??C) TempSrc: Oral SpO2: 98% Physical Exam Constitutional: Appearance: Normal appearance. HENT: Right Ear: Tympanic membrane normal. Left Ear: Tympanic membrane normal. Nose: Congestion and rhinorrhea present. Mouth/Throat: Pharynx: Oropharynx is clear. No oropharyngeal exudate. Eyes: Conjunctiva/sclera: Conjunctivae normal. Cardiovascular: Rate and Rhythm: Normal rate and regular rhythm. Heart sounds: Normal heart sounds. Pulmonary: Effort: Pulmonary effort is normal. Breath sounds: No stridor. Wheezing present. No rhonchi or rales. Musculoskeletal: Cervical back: Normal range of motion. No rigidity or tenderness. Lymphadenopathy: Cervical: Cervical adenopathy present. Neurological: Mental Status: She is alert. Psychiatric: Behavior: Behavior normal. Office Visit on 04/14/2025 Component Date Value Ref Range Status Rapid COVID Ag 04/14/2025 Negative Final QC Media Lot # 04/14/2025 [id number] Final Lot# Expiration Date 04/14/2025 [id number] Final Influenza A 04/14/2025 Negative Negative, Indeterminate Final QC Media Lot # 04/14/2025 [id number] Final Lot# Expiration Date 04/14/2025 2,,027 Final Influenza B 04/14/2025 Negative Negative, Indeterminate Final QC Media Lot # 04/14/2025 [id number] Final Lot# Expiration Date 04/14/2025 2,,027 Final Rapid Strep A Screen 04/14/2025 Negative Negative, None Detected Final QC Media Lot # 04/14/2025 [id number] Final Lot# Expiration Date 04/14/2025 2, Final Assessment & Plan Acute URI -No evidence of respiratory distress. Normal SaO2 on RA. -mild exp wheeze on exam resolved with duoneb - prednisone burst for COPD exacerbation in setting of URI -No evidence of dehydration. -Supportive care advised. -Isolation recommendations discussed. -ER precautions discussed. -Seek medical attention for worsening symptoms. Sore throat Orders: POCT Rapid Covid-19 BinaxNOW POCT Rapid Influenza A LARRY ID NOW POCT Rapid Influenza B LARRY ID NOW POCT Rapid Strep A ALRRY ID NOW Acute cough Orders: XR Chest 2 Views; Future ipratropium-albuterol (Duo-Neb) 0.5-2.5 mg/3 mL nebulizer solution 3 mg COPD exacerbation (CMS/HCC) (HCC) XR/XR chest 2V 04/14/25 No evidence for acute disease in the chest. Orders: predniSONE (Deltasone) 20 MG tablet; 2 tabs po daily for 5 days documented in this encounter Plan of Treatment Not on file documented as of this encounter Procedures Procedure Name Priority Date/Time Associated Diagnosis Comments XR CHEST 2 VIEWS Routine 04/14/2025 2:00 PM EDT Acute cough POCT INFLUENZA B (ID NOW RAPID MOLECULAR) Routine 04/14/2025 1:17 PM EDT Sore throat POCT INFLUENZA A (ID NOW RAPID MOLECULAR) Routine 04/14/2025 1:17 PM EDT Sore throat POCT RAPID COVID ANTIGEN Routine 04/14/2025 1:16 PM EDT Sore throat POC LARRY ID NOW STREP A Routine 04/14/2025 1:15 PM EDT Sore throat documented in this encounter Results * XR Chest 2 Views (04/14/2025 2:00 PM EDT) Anatomical Region Laterality Modality Chest Radiographic Shasta ging 04/14/2025 2:00 PM EDT Narrative 04/14/2025 2:10 PM EDT [address] [address] XRay Report Signed Patient: Tamanna Gutierrez MR#: [id number] : 1970 Acct:[id number] Age/Sex: 55 / F ADM Date: 04/14/25 Loc: [facility]ERMAN[facility] Attending Dr: Faith Wu MD Ordering Physician: Faith Wu MD Date of Service: 04/14/25 Procedure(s): XR chest 2V Accession Number(s): [id number] cc: Faith Wu MD Reason for Exam: cough, soreness of ribs bilateral EXAMINATION: XR CHEST CLINICAL INFORMATION: cough, soreness of ribs bilateral COMPARISON: Previous chest x-ray most recent March 04, 2025 TECHNIQUE: 2 views of the chest were obtained. FINDINGS: Partially visualized leads in the cervical and thoracic spinal canal unchanged. Cardiac and mediastinal contours are normal. Lungs are clear. No pleural effusion or pneumothorax. No rib fracture seen. Mild curvature of the thoracic spine to the right and degenerative changes. XR/XR chest 2V IMPRESSION: No evidence for acute disease in the chest. Electronically signed by: Alba Bustamante MD 04/14/2025 02:08 PM EDT RP Dictated By: Alba Bustamante MD Signed By: <Electronically signed by Alba Bustamante MD in OV> 04/14/25 1408 DD/ 1400 TD/TT: 04/14/[address] Grader Operator: SANTI Procedure Note Donotuseinterpreter, Image - 04/14/[address] [address] XRay Report Signed Patient: Tamanna GutierrezMR#: [id number] : 1970Acct:[id number] Age/Sex: 55 / FADM Date: 04/14/25 Loc: [facility] Attending Dr: Faith Wu MD Ordering Physician: Faith Wu MD Date of Service: 04/14/25 Procedure(s): XR chest 2V Accession Number(s): [id number] cc: Faith Wu MD Reason for Exam: cough, soreness of ribs bilateral EXAMINATION: XR CHEST CLINICAL INFORMATION: cough, soreness of ribs bilateral COMPARISON: Previous chest x-ray most recent March 04, 2025 TECHNIQUE: 2 views of the chest were obtained. FINDINGS: Partially visualized leads in the cervical and thoracic spinal canal unchanged. Cardiac and mediastinal contours are normal. Lungs are clear. No pleural effusion or pneumothorax. No rib fracture seen. Mild curvature of the thoracic spine to the right and degenerative changes. XR/XR chest 2V IMPRESSION: No evidence for acute disease in the chest. Electronically signed by: Alba Bustamante MD 04/14/2025 02:08 PM EDT RP Dictated By: Alba Bustamante MD Signed By: <Electronically signed by Alba Bustamante MD in OV> 04/14/25 1408 DD/ 1400 TD/TT: 04/14/[address] Grader Operator: SANTI Faith Wu MD IMG XR PROCEDURES Final Re sult * POCT Rapid Influenza B LARRY ID NOW (04/14/2025 1:17 PM EDT) Influenza B Negative Negative, Indeterminate [facility] QC Media Lot # [id number] [facility] Lot# Expiration Date [facility] Swab 04/14/2025 1:17 PM EDT Faith Wu MD POINT OF CARE TEST ENTER/E DIT ORDERABLES Final Result [facility] [address] [place] [phone] * POCT Rapid Influenza A LARRY ID NOW (04/14/2025 1:17 PM EDT) Influenza A Negative Negative, Indeterminate [facility] QC Media Lot # [id number] [facility] Lot# Expiration Date [facility] Swab 04/14/2025 1:17 PM EDT us Faith Wu MD POINT OF CARE TEST ENTER/E DIT ORDERABLES Final Result [facility] [address] [place] [phone] * POCT Rapid Covid-19 BinaxNOW (04/14/2025 1:16 PM EDT) Rapid COVID Ag Negative QC Media Lot # [id number] Lot# Expiration Date Swab 04/14/2025 1:16 PM EDT Faith Wu MD POINT OF CARE TEST ENTER/E DIT ORDERABLES Final Result * POCT Rapid Strep A LARRY ID NOW (04/14/2025 1:15 PM EDT) Rapid Strep A Screen Negative Negative, None Detected QC Media Lot # [id number] Lot# Expiration Date Swab 04/14/2025 1:1 5 PM EDT us Faith Wu MD POINT OF CARE TEST ENTER/E DIT ORDERABLES Final Result documented in this encounter Visit Diagnoses Diagnosis Acute URI- Primary Acute upper respiratory infections of unspecified site Sore throat Acute pharyngitis Acute cough COPD exacerbation ([facility]/HCC) (HCC) Obstructive chronic bronchitis with exacerbation documented in this encounter Administered Medications Inactive Administered Medications - up to 3 most recent administrations Medication Order MAR Action Action Date Dose Rate Site ipratropium-albuterol (Duo-Neb) 0.5-2.5 mg/3 mL nebulizer solution 3 mg 3 mg, Nebulization, Once, On Misty 04/14/25 at 1330, For 1 doseIndications:Acute cough Given 04/14/2025 1:30 PM EDT 3 mg documented in this encounter Additional Health Concerns Assessment Noted Time PHQ-9 Depression Total Score: 11 024 9:53 AM EDT documented as of this encounter Care Teams Pastrycook'S Assistant Relationship Specialty Start Date End Date Sandra Neal CNP [address] [place] [address] PCP - General Family Medicine 04/14/25 documented as of this encounter
[2025-04-18 12:26] VITALS: BP 136/89; PULSE 76; RESP 16; TEMP 36.4; O2SAT 97; BMI 46.0
--- NOTE | 2025-04-18 12:26 | ED.GENADULT ---
HPI - General Adult General Chief complaint: Dyspnea Stated complaint: bronchitis, meds not working. Making pt feel sick Time Seen by Provider: 04/18/25 17:28 Source: patient, RN notes reviewed and old records reviewed Mode of arrival: ambulatory Limitations: no limitations History of Present Illness ED Provider: Reva HPI narrative: 55-year-old female with past medical history significant for morbid obesity, chronic neuropathy, asthma, COPD, GERD, depression, hypertension, sleep apnea presents for evaluation of coughing, shortness of breath, nausea and vomiting. She reports that she has been sick for about 2 weeks pain She saw her doctor 5 days ago and was given a prescription for prednisone for a COPD exacerbation. She reports that she has been vomiting having diarrhea and does not believe that the prednisone has been helping pain Denies any fevers, chills, cough, chest pain. She reports that her son was sick with similar symptoms and she does not feel that she is getting better Denies any recent travel, denies any recent antibiotic use pain She does complain of some mild abdominal pain which she reports his generalized Related Data Home Medications ?Medication ?Instructions ?Recorded ?Confirmed cetirizine 10 mg tablet 10 mg PO BEDTIME 04/27/20 09/27/24 duloxetine 30 mg capsule,delayed 30 mg PO BEDTIME 04/27/20 09/27/24 release metoprolol tartrate 50 mg tablet 50 mg PO BID 04/27/20 09/27/24 montelukast 10 mg tablet 10 mg PO BEDTIME 04/27/20 09/27/24 clonidine HCl 0.1 mg tablet 0.1 mg PO BID 06/05/20 09/27/24 apixaban 5 mg tablet (Eliquis) 5 mg PO BID 06/28/20 09/27/24 losartan 100 mg tablet 100 mg PO DAILY 06/28/20 09/27/24 furosemide 20 mg tablet 20 mg PO BID 12/25/21 09/27/24 ergocalciferol (vitamin D2) 1,250 1,250 mcg PO FR@0900 01/08/22 09/27/24 mcg (50,000 unit) capsule amlodipine 5 mg tablet 5 mg PO DAILY 09/24/22 09/27/24 ascorbic acid (vitamin C) 500 mg 500 mg PO DAILY 10/06/22 09/27/24 capsule,extended release omeprazole 40 mg capsule,delayed 40 mg PO BID 01/09/23 09/27/24 release cyanocobalamin (vitamin B-12) 500 500 mcg PO DAILY 12/16/23 09/27/24 mcg tablet (Vitamin B-12) rosuvastatin 20 mg tablet 20 mg PO DAILY 12/16/23 09/27/24 multivitamin-iron sulfate 15 1 tab PO BEDTIME 04/15/24 09/27/24 mg-folic acid 400 mcg tablet (Tab-A-Bing Multivitamin w-iron) albuterol sulfate 2.5 mg/3 mL 2.5 mg inhalation Q4H PRN 09/27/24 09/27/24 (0.083 %) solution for nebulization Respiratory Distress albuterol sulfate 90 mcg/actuation 2 puff inhalation Q4-6H PRN 09/27/24 09/27/24 aerosol inhaler Respiratory Distress docusate sodium 100 mg capsule 100 mg PO BID 09/27/24 09/27/24 ferrous sulfate 325 mg (65 mg 325 mg PO DAILY 09/27/24 09/27/24 iron) tablet fluticasone propionate 230 2 puff inhalation BID 09/27/24 09/27/24 mcg-salmeterol 21 mcg/actuation HFA inhaler (Advair HFA) tirzepatide (weight loss) 2.5 2.5 mg subcut FR@1000 09/27/24 09/27/24 mg/0.5 mL subcutaneous pen injector (Zepbound) Previous Rx's ?Medication ?Instructions ?Recorded naloxone 4 mg/actuation nasal spray 4 mg intranasal Q2M PRN opioid 12/19/23 overdose 1 day #2 ea topiramate 100 mg tablet 100 mg PO BEDTIME 30 days #30 tabs 09/10/24 gabapentin 300 mg capsule 300 mg PO BID 30 days #60 caps 10/11/24 magnesium oxide 400 mg (241.3 mg 400 mg PO BEDTIME 90 days #90 tabs 11/26/24 magnesium) tablet riboflavin (vitamin B2) 400 mg 400 mg PO DAILY 90 days #90 tabs 11/26/24 tablet erenumab-aooe 140 mg/mL 140 mg subcut Q30D 30 days #1 mL 12/03/24 subcutaneous auto-injector (Aimovig Autoinjector) rimegepant 75 mg disintegrating 75 mg PO DAILY PRN migraine 01/10/25 tablet (Nurtec ODT) headache 30 days #16 tabs topiramate 25 mg tablet 50 mg (2 x 25 mg) PO DAILY 30 days 01/19/25 #60 tabs prednisone 20 mg tablet 40 mg (2 x 20 mg) PO DAILY 5 days 02/20/25 #10 tabs dicyclomine 20 mg tablet 20 mg PO BID PRN abdominal pain #7 03/05/25 tabs ondansetron 4 mg disintegrating 4 mg PO Q8H PRN nausea and 03/05/25 tablet vomiting #10 tabs sucralfate 100 mg/mL oral 10 ml PO QID PRN indigestion #300 03/05/25 suspension (Carafate) mL pyridoxine (vitamin B6) 50 mg 50 mg PO BID 30 days #60 tabs 03/18/25 tablet azithromycin 250 mg tablet See Rx Instructions PO .COMPLEX #6 04/18/25 tabs ondansetron 4 mg disintegrating 4 mg PO Q8H PRN nausea and 04/18/25 tablet vomiting #20 tabs Allergies Allergy/AdvReac Type Severity Reaction Status Date / Time bacitracin Allergy Mild Rash Verified 04/18/25 12:27 ibuprofen Allergy Unknown Verified 04/18/25 12:27 lisinopril Allergy Unknown Verified 04/18/25 12:27 aspirin AdvReac Mild mild Verified 04/18/25 12:27 vaginal bleeding Review of Systems Constitutional: Constitutional: Reports body ache(s), Reports chills, Reports fatigue, Denies fever(s), Reports headache(s), Reports malaise and Reports weakness Eyes: Eyes: Denies blurry vision ENT: Denies dysphagia, Denies vertigo, Denies dizziness, Reports headache(s) and Denies sore throat Cardiovascular: Cardiovascular: Denies chest pain, Reports dyspnea and Reports dyspnea on exertion Respiratory: Respiratory: Reports chest congestion, Reports cough, Reports pain on inspiration, Reports pain with cough, Reports dyspnea and Reports dyspnea on exertion Gastrointestinal: Gastrointestinal: Reports abdominal pain, Denies melena, Denies hematochezia, Denies dysphagia, Reports diarrhea, Reports loose stools, Reports nausea and Reports vomiting Musculoskeletal: Musculoskeletal: Reports back pain Integumentary/Breasts: Skin/Breast: Denies rash Neurologic: Denies vertigo, Denies dizziness, Reports headache(s) and Reports weakness Endocrine: Endocrine: Reports fatigue PMFSH Past Medical History Medical History Arthritis Peptic ulcer GERD (gastroesophageal reflux disease) CVA (cerebral vascular accident) SOB (shortness of breath) Atrial fibrillation Seizure On beta christina at home On anticoagulant therapy SANDEE (obstructive sleep apnea) Morbid obesity with BMI of 45.0-49.9, adult Gout High cholesterol Hypertension COVID-19 Osteoarthritis of knees, bilateral History of gastric ulcer Left inguinal hernia (~2013) Lab test positive for detection of COVID-19 virus (~11/2019) Bleeding disorder Asthma Surgical History History of back surgery S/P partial hysterectomy (11/10/18) H/O umbilical hernia repair (07/25/06) Hx of endoscopy Family History Family History Father Hx of diabetes insipidus Mother No problems noted. Social History Social History Household Members: [facility] Are you a primary chronic care nurse to a significant other at home: No Do you presently have visiting nurse or other home services: No Alcohol intake: never Comment: counts correct Patient Tobacco Use Status: Never used Tobacco e-Cigarette/Vaping Use: Never Used Second Hand Smoke Exposure: No Advance Directives: Yes Advance Directives on File: Yes Advance Directives Date on File: 01/24/21 service: No Current occupational status: unemployed Current occupation: right handed Physical Exam ED Vital Signs: Vital Signs - 24 hr 04/18/25 12:26 Temperature 97.6 F Pulse Rate 76 Respiratory Rate 16 Blood Pressure 136/89 Pulse Oximetry 97 Oxygen Delivery Method Room Air BMI result Body Mass Index 46.0 Const General: healthy appearing, comfortable, no acute distress, alert and awake; No acute distress Nutritional Appearance: well nourished and obese morbidly obese Orientation/consciousness: patient oriented x3 HENMT Head: Yes normocephalic and Yes atraumatic Throat: Yes posterior oropharynx normal Eyes Eyelids: Yes eyelids normal Conjunctivae: conjunctivae normal Sclerae: sclerae normal Corneas: corneas normal Pupils: Equal, round and reactive pupils present EOM: EOMs intact bilaterally Neck Neck: Yes full ROM Resp Effort & Inspection: normal respiratory effort, able to speak in complete sentences, no audible wheezes and not labored Auscultation: wheezes (Diffuse expiratory wheeze) Cardio Rate: regular rate Rhythm: regular rhythm GI Inspection: No distended Palpation (GI): Soft to palpation, not firm, nontender, no guarding and not rigid Skin General skin exam: elasticity normal Neuro General: patient oriented x3 Cranial nerves: Yes CN's II-XII intact bilaterally, Yes Equal, round and reactive pupils present and Yes Bilaterally intact EOM present Cognition (Neuro): normal cognition Extrem Other: Moving all extremities well without any obvious deformities Course Course Course Narrative: Rapid medical examination performed in triage by Lucinda Black PA-C: Patient is a 55 year old assigned female at presenting to the emergency department with loose stool and feeling generally unwell. Patient states that she was told she has bronchitis and was started on prednisone and has had non stop diarrhea and vomiting. Detailed physical exam and review of systems are deferred to the engineering associate. Labs ordered. Patient placed back in the waiting room pending room availability and results. Medications Administered Discontinued Medications Generic Name Dose Route Start Last Admin Trade Name Freq PRN Reason Stop Dose Admin Cyclobenzaprine HCl 10 mg 04/18/25 19:38 04/18/25 19:42 Cyclobenzaprine Hcl 10 Mg Tablet PO 04/18/25 19:39 10 mg ONCE ONE Administration Sodium Chloride 1,000 mls @ 999 mls/hr 04/18/25 18:45 04/18/25 19:40 Ns IV 04/18/25 19:45 999 mls/hr .Q1H1M ISMA Administration Ondansetron HCl 4 mg 04/18/25 18:36 04/18/25 19:39 Ondansetron Hcl 4 Mg/2 Ml Vial IVPUSH 04/18/25 18:37 4 mg ONCE ONE Administration Medical Decision Making Medical Decision Making MDM Narrative: 55-year-old female with a past medical history as above presents for evaluation of multiple symptoms including cough, congestion, weakness, nausea vomiting, diarrhea. The patient is quite well appearing with stable vital signs. Her symptoms are most consistent with a viral illness given the plethora of complaints including upper respiratory symptoms, GI symptoms. Her workup is significant for a leukocytosis of the 17.7 but I suspect this is likely due to prednisone use which she has been on for the last few days. There was no significant left shift. The patient is afebrile, she has some wheezing on exam. The patient had an outpatient x-ray dated 04/14/2025. I do not see any indication to repeat this again today as she is not hypoxic or tachypneic. She is not tachycardic. We will treat her symptoms with IV fluids and given that she has been sick for 2 weeks with a history of COPD and asthma I feel is appropriate to add azithromycin to her treatment regimen. Differential Diagnosis Differential Diagnoses: The differential diagnosis associated with the presentation includes COPD exacerbation Upper respiratory infection Asthma Pneumonia Bronchitis Viral illness Influenza COVID-19 Gastroenteritis Lab Data MDM Lab Attestation statement: I reviewed the patient's lab results. Mild leukocytosis as above, no significant anemia. No significant electrolyte abnormalities warranting dimension 04/18/25 13:19 04/18/25 13:19 Labs: Lab Results 04/18/25 Range/Units 13:19 WBC 17.7 H (4.8-10.8) X10*3/uL RBC 4.87 (4.20-5.50) X10*6/uL Hgb 14.0 (12.0-16.0) g/dl Hct 43.9 (37.0-47.0) % MCV 90.1 (80.0-98.0) fL MCH 28.7 (27.0-33.0) pg MCHC 31.9 (31.0-35.0) g/dl RDW 14.5 (11.0-16.0) % Plt Count 465 H (160-400) X10*3/uL MPV 10.0 (9.4-12.3) fL Immature Gran % (Auto) 0.3 (0.0-0.4) % Neut % (Auto) 69.8 (45-73) % Lymph % (Auto) 23.0 (20-40) % [place] % (Auto) 5.1 (2-11) % Eos % (Auto) 1.4 (0-4) % Baso % (Auto) 0.4 (0-2) % Lymph # (Auto) 4.1 (1.2-4.9) X10*3/uL [place] # (Auto) 0.9 (0.1-1.2) X10*3/uL Eos # (Auto) 0.3 (0.0-0.4) X10*3/uL Baso # (Auto) 0.1 (0.0-0.2) X10*3/uL Abs Immat Gran (auto) 0.06 H (0.00-0.03) X10*3/uL Absolute Neuts (auto) 12.4 H (2.0-8.3) x10*3/uL Absolute Nucleated RBC 0.000 (0.0-0.012) X10*3/uL Nucleated RBC % (auto) 0.0 (0.0-0.2) /100WBC Sodium 143 (135-145) mmol/L Potassium 3.6 (3.3-5.1) mmol/L Chloride 108 (96-108) mmol/L Carbon Dioxide 28 (22-29) mmol/L Anion Gap 11 L (12-20) BUN 20 H (9-16) mg/dL Creatinine 0.80 (0.5-1.4) mg/dL Estim Creat Clear Calc 123.5 Estimated GFR > 60 Random Glucose 93 (60-115) mg/dL Calcium 8.8 D (8.4-10.2) mg/dL Magnesium 2.1 (1.6-2.6) mg/dL Total Bilirubin 0.3 (0.0-1.0) mg/dL AST 38 H (5-31) U/L ALT 39 H (0-31) U/L Alkaline Phosphatase 149 H (39-117) U/L Total Protein 8.1 H (6.5-8.0) g/dL Albumin 4.7 (3.5-5.0) g/dL Discharge Plan Discharge Clinical Impression: COPD exacerbation Patient Disposition: Home, Self-Care Instructions: Chronic Bronchitis (ED) Additional Instructions: Your workup in the ER today was reassuring This includes your labs, you were given IV fluids Use Zofran as needed for nausea and vomiting. Take azithromycin as prescribed Follow up with your primary doctor, return for new or worsening symptoms Prescriptions: New azithromycin 250 mg tablet See Rx Instructions .ROUTE .COMPLEX Qty: 6 0RF Rx Instructions: For 250 mg dose pack: take 500 mg today (day 1), then 250 mg for 4 days (days 2-5) ondansetron 4 mg tablet,disintegrating 4 mg PO Q8H PRN (Reason: nausea and vomiting) Qty: 20 0RF No Action naloxone 4 mg/actuation spray,non-aerosol 4 mg intranasal Q2M PRN (Reason: opioid overdose) 1 Days Qty: 2 4RF Rx Instructions: spray 1 dose into ONE nostril; alternate nostrils w each dose until help arrives topiramate 100 mg tablet 100 mg PO BEDTIME 30 Days Qty: 30 6RF gabapentin 300 mg capsule 300 mg PO BID 30 Days Qty: 60 5RF Aimovig Autoinjector 140 mg/mL auto-injector 140 mg subcut Q30D 30 Days Qty: 1 11RF Rx Instructions: PA APPROVED 11/19/24-until further notice topiramate 25 mg tablet 50 mg PO DAILY 30 Days Qty: 60 6RF Rx Instructions: continues topiramate 100mg qhs pyridoxine (vitamin B6) 50 mg tablet 50 mg PO BID 30 Days Qty: 60 0RF prednisone 20 mg tablet 40 mg PO DAILY 5 Days Qty: 10 0RF ascorbic acid (vitamin C) 500 mg capsule, extended release 500 mg PO DAILY Rx Instructions: take with iron cyanocobalamin (vitamin B-12) [Vitamin B-12] 500 mcg Tablet 500 mcg PO DAILY rosuvastatin 20 mg Tablet 20 mg PO DAILY docusate sodium 100 mg Capsule 100 mg PO BID ferrous sulfate 325 mg (65 mg iron) Tablet 325 mg PO DAILY fluticasone propion-salmeterol [Advair HFA] 230-21 mcg/actuation Hfa Aerosol Inhaler 2 puff INHALATION BID albuterol sulfate 2.5 mg /3 mL (0.083 %) Solution For Nebulization 2.5 mg inhalation Q4H PRN (Reason: Respiratory Distress) albuterol sulfate 90 mcg/actuation Hfa Aerosol Inhaler 2 puff INHALATION Q4-6H PRN (Reason: Respiratory Distress) Zepbound 2.5 mg/0.5 mL Pen Injector 2.5 mg SUBCUT FR@1000 Rx Instructions: for 4 weeks ondansetron 4 mg tablet,disintegrating 4 mg PO Q8H PRN (Reason: nausea and vomiting) Qty: 10 0RF dicyclomine 20 mg tablet 20 mg PO BID PRN (Reason: abdominal pain) Qty: 7 0RF sucralfate [Carafate] 100 mg/mL suspension 10 ml PO QID PRN (Reason: indigestion) Qty: 300 0RF Rx Instructions: swish in mouth and swallow; use after food/drink clonidine HCl 0.1 mg tablet 0.1 mg PO BID cetirizine 10 mg tablet 10 mg PO BEDTIME duloxetine 30 mg capsule,delayed release(DR/EC) 30 mg PO BEDTIME montelukast 10 mg tablet 10 mg PO BEDTIME metoprolol tartrate 50 mg tablet 50 mg PO BID Eliquis 5 mg tablet 5 mg PO BID losartan 100 mg tablet 100 mg PO DAILY ergocalciferol (vitamin D2) 1,250 mcg (50,000 unit) capsule 1,250 mcg PO FR@0900 furosemide 20 mg tablet 20 mg PO BID amlodipine 5 mg tablet 5 mg PO DAILY omeprazole 40 mg capsule,delayed release(DR/EC) 40 mg PO BID Tab-A-Bing Multivitamin w-iron 15 mg iron- 400 mcg tablet 1 tab PO BEDTIME riboflavin (vitamin B2) 400 mg tablet 400 mg PO DAILY 90 Days Qty: 90 3RF magnesium oxide 400 mg (241.3 mg magnesium) tablet 400 mg PO BEDTIME 90 Days Qty: 90 3RF Rx Instructions: may hold for loose stools Nurtec ODT 75 mg tablet,disintegrating 75 mg PO DAILY MDD 1 tab PRN (Reason: migraine headache) 30 Days Qty: 16 6RF Print Language: Colombian
[2025-04-18 13:23] LABS: MANUAL DIFF FLAG NO
[2025-04-18 13:24] LABS: Hematocrit 43.9 % (37.0-47.0); Hemoglobin 14.0 g/dl (12.0-16.0); Imm Gran Abs Auto 0.06 X10*3/uL (0.00-0.03); Imm Gran Pct Auto 0.3 % (0.0-0.4); Lymphocytes Absolute Auto 4.1 X10*3/uL (1.2-4.9); Mean Corpuscular HGB Conc 31.9 g/dl (31.0-35.0); Mean Corpuscular Hemoglobin 28.7 pg (27.0-33.0); Mean Corpuscular Volume 90.1 fL (80.0-98.0); NRBC Abs Auto 0.000 X10*3/uL (0.0-0.012); NRBC Pct Auto 0.0 /100WBC (0.0-0.2); Platelet Count 465 X10*3/uL (160-400); Red Blood Count 4.87 X10*6/uL (4.20-5.50); White Blood Count 17.7 X10*3/uL (4.8-10.8)
[2025-04-18 13:44] LABS: Alanine Aminotransferase 39 U/L (0-31); Albumin Level 4.7 g/dL (3.5-5.0); Alkaline Phosphatase 149 U/L (39-117); Anion Gap 11 (12-20); Aspartate Amino Transferase 38 U/L (5-31); Blood Urea Nitrogen 20 mg/dL (9-16); Calcium 8.8 mg/dL (8.4-10.2); Carbon Dioxide 28 mmol/L (22-29); Chloride 108 mmol/L (96-108); Creatinine Clr Calc Pharmacy 123.5; Estimated Glomerular Filt Rate > 60; Magnesium 2.1 mg/dL (1.6-2.6); Potassium 3.6 mmol/L (3.3-5.1); Sodium 143 mmol/L (135-145); Total Protein 8.1 g/dL (6.5-8.0)
--- OUTSIDE RECORDS SUMMARY | 2025-04-18 17:35 | XMS_ITS | Encounter Summary ---
Author Organization [employer] Address [address] [place] [address] Care Team Providers Care Reel Slitter Name Role Phone Sandra Neal CNP Primary Care Provider [phone] Encounter Details Date Type Department Care Team [...] documented as of this encounter Care Teams Reel Slitter Relationship Specialty Start Date End Date Sandra Neal CNP [address] [place] [address] PCP - General Family Medicine 04/14/25 documented as of this encounter
--- OUTSIDE RECORDS SUMMARY | 2025-04-18 17:35 | XMS_ITS | Encounter Summary ---
Author Organization [employer] Address [address] [place] [address] Care Team Providers Care Isotope Hydrologist Name Role Phone Sandra Neal CNP Primary Care Provider [phone] Encounter Details Date Type Department Care Team ([facility] st Contact Info) Description 04/14/2025 Results Follow-Up [facility] [address] [place] [address] Faith Wu MD [address] [place] [address] XR Chest 2 Views Social History Tobacco [...] encounter Miscellaneous Notes * Telephone Encounter - Allison De Leon - 04/18/2025 11:38 AM EST Normal lab test letter sent on 04/18/2025 documented in this encounter Plan of Treatment Not on file documented as of this encounter Visit Diagnoses Not on filedocumented in this encounter Additional Health Concerns Assessment Noted Time PHQ-9 Depression Total Score: 11 024 9:53 AM EDT documented as of this encounter Care Teams Isotope Hydrologist Relationship Specialty Start Date End Date Sandra Neal CNP [address] [place] [address] PCP - General Family Medicine 04/14/25 documented as of this encounter
--- OUTSIDE RECORDS SUMMARY | 2025-04-18 17:35 | XMS_ITS | Encounter Summary ---
Author Organization [employer] Address [address] [place] [address] Care Team Providers Care Senior Lead Software Engineer Name Role Phone Sandra Neal CNP Primary Care Provider [phone] Encounter Details Date Type Department Care Team (Late st Contact Info) Description 04/14/2025 Telephone [facility] [address] [place] [address] Faith Wu MD [address] [place] [address] Social History Tobacco Use Types Packs/Day Years [...] documented as of this encounter Care Teams Senior Lead Software Engineer Relationship Specialty Start Date End Date Sandra Neal CNP [address] [place] [address] PCP - General Family Medicine 04/14/25 documented as of this encounter
--- OUTSIDE RECORDS SUMMARY | 2025-04-18 17:35 | XMS_ITS | Encounter Summary ---
Author Organization [employer] Address [address] [place] [address] Care Team Providers Care Trailer Park Manager Name Role Phone Davina Marie MD Primary Care Provider [phone] Sandra Neal CNP Primary Care Provider [phone] Encounter Details Date Type Department Care Team (Late st Contact Info) Description 11/19/2022 Orders Only [facility] [address] [place] [address] Tamanna Villalpando LPN Social History Tobacco Use [...] on filedocumented in this encounter Care Teams Trailer Park Manager Relationship Specialty Start Date End Date Davina Marie MD [address] [place] [address] PCP - General Family Medicine 12/01/19 04/13/25 Sandra Neal CNP [address] [place] [address] PCP - General Family Medicine 04/14/25 documented as of this encounter
--- OUTSIDE RECORDS SUMMARY | 2025-04-18 17:35 | XMS_ITS | Encounter Summary ---
Author Organization [facility] Address [address] [place] [address] Care Team Providers Care Therapist Radiation Name Role Phone Services-[facility] Care Provider Bradley Juan MD Unavailable [phone] Yusra Barton APRN Primary Care Provider [phone] Encounter Details Date Type Department Care Team (Late st Contact Info) Description 04/06/2018 Telephone [facility] [address] [phone] Lisa Damon RT [address] [place] [address] Social History Tobacco Use Types Packs/Day [...] on filedocumented in this encounter Care Teams Therapist Radiation Relationship Specialty Start Date End Date [facility] [address] [place] [address] PCP - General Internal Medicine 05/26/17 05/24/18 Yusra Barton APRN [address] [place] [address] PCP - General Family Medicine 05/25/18 Bradley Juan MD [address] [place] [address] Physician Cardiovascular Disease 07/08/17 documented as of this encounter
--- OUTSIDE RECORDS SUMMARY | 2025-04-18 17:35 | XMS_ITS | Encounter Summary ---
Author Organization [facility] Address [address] [place] [address] Care Team Providers Care Grocery Clerk Selling Name Role Phone Bradley Juan MD Unavailable Yusra Barton APRN Primary Care Provider Encounter Details Date Type Department Care Team (Late st Contact Info) Description 09/15/2018 Scanned Document [facility] [employer] [address] [place] [phone] Provider, MD [facility] [address] [place] [address] Social History Tobacco Use Types Packs/Day Years [...] on filedocumented in this encounter Care Teams Grocery Clerk Selling Relationship Specialty Start Date End Date Yusra Barton APRN [address] [place] [address] PCP - General Family Medicine 05/25/18 Bradley Juan MD [address] [place] [address] Physician Cardiovascular Disease 07/08/17 documented as of this encounter
--- OUTSIDE RECORDS SUMMARY | 2025-04-18 17:35 | XMS_ITS | Encounter Summary ---
Author Organization [employer] Address [address] [place] [address] [address] [place] [address] Care Team Providers Care Disk Grinder Name Role Phone Davina Marie MD Primary Care Provider [phone] Sandra Neal CNP Primary Care Provider [phone] Encounter Details Date Type Department Care Team (Late st Contact Info) Description 01/21/2023 Orders Only [facility] [address] [place], [place] [id number] Tamanna Villalpando LPN Social History Tobacco Use [...] on filedocumented in this encounter Care Teams Disk Grinder Relationship Specialty Start Date End Date Davina Marie MD [address] [place] [address] PCP - General Family Medicine 12/01/19 04/13/25 Sandra Neal CNP [address] [place] [address] PCP - General Family Medicine 04/14/25 documented as of this encounter
--- OUTSIDE RECORDS SUMMARY | 2025-04-18 17:35 | XMS_ITS | Encounter Summary ---
Author Organization [employer] Address [address] [place] [address] Care Team Providers Care Manager Product Name Role Phone Davina Marie MD Primary Care Provider [phone] Sandra Neal CNP Primary Care Provider [phone] Encounter Details Date Type Department Care Team ([facility] st Contact Info) Description 11/25/2022 Orders Only [facility] [address] [place] [address] Davina Marie MD [address] [place] [address] Social History Tobacco Use Types Packs/Day Years [...] filedocumented in this encounter Care Teams Manager Product Relationship Specialty Start Date End Date Davina Marie MD [address] [place] [address] PCP - General Family Medicine 12/01/19 04/13/25 Sandra Neal CNP [address] [place] [address] PCP - General Family Medicine 04/14/25 documented as of this encounter
--- OUTSIDE RECORDS SUMMARY | 2025-04-18 17:36 | XMS_ITS | Clinical Summary ---
Author Organization [facility] it Address [address] [place] [address] Care Team Providers Care Incident Handler Name Role Phone Davina Marie MD Primary Care Provider [phone] Surgical History Surgery Date Site/Laterality Comments OTHER SURGICAL HISTORY PROCEDURE: HI ANES HRNA REPAIR UPR ABD TABDL RPR DIPHRG HRNA SALPINGOOPHORECTOMY 10/2018 Left PROCEDURE: HI LAPAROSCOPY W/RMVL ADNEXAL STRUCTURES; COMMENT: ovarian torsion OTHER SURGICAL HISTORY 2016 PROCEDURE: HI DILATION & CURETTAGE DX&/THER NONOBSTETRIC Medical History [...] RESULTING AGENCY - 09/11/2020 4:30 PM EDT [id number] THINPREP PAP, IMAGED: NEGATIVE FOR SQUAMOUS INTRAEPITHELIAL [...] LMP 08/28/20 [Z12.4, Z12.31] us Sabrina Jorge [facility] LAB CYTOLOGY ORDERABLES Final Result HISTORICAL TESTING LAB RESULTING AGENCY from Last 3 Months or Most Recently Relevant to Health Maintenance Advance Directives Documents on File Type Date Recorded Patient Correctional Sergeant Expl anation Health Care Decision (hx) 12/14/2020 [...] (hx) 12/14/2020 AD SCHUMACHER DIRECTIVE Care Teams Incident Handler Relationship Specialty Start Date End Date Davina Marie MD [address] [place] [phone] PCP - General 06/27/21
--- OUTSIDE RECORDS SUMMARY | 2025-04-18 17:36 | XMS_ITS | Clinical Summary ---
Author Organization [employer] Address [address] [facility] 7[address] [place] [address] Care Team Providers Care Case Picker Name Role Phone Sandra Neal CNP Primary Care Provider [phone] Allergies Active Allergy Reactions Criticality Noted Date [...] 30 tablet 025 Active Vitamin D, Ergocalciferol, 60051 units capsule TAKE ONE CAPSULE ONCE WEEKLY [...] 5 days 10 tablet 10/30/2 025 Active Eliquis 5 MG tabletIndicatio ns:Unspecified atrial fibrillation ([facility]) ([facility]) TAKE ONE TABLET TWICE DAILY [...] Morbid obesity with BMI of 45.0-49.9, adult ([facility]) 03/07/2023 Mononeuropathy, unspecified 03/07/2023 Headache 03/07/2023 Assessment & Plan (03/07/2023 9:47 AM EDT): Patient will be given Mopnkwsuct-Quvjqyybzegix-Knaxxljo to treated headaches. GERD with esophagitis 03/07/2023 [...] will send neb solution and machine. Seizures ([facility]) 11/21/2022 Atrial fibrillation ([facility]) 07/31/2022 Benign hypertension 07/31/2022 Assessment [...] October 2018: surgery for ovarian torsion at [facility] in [facility] Migraine 08/13/2018 Overview (07/31/2022): Overview Note: Migraine #[id number]# EXT_ID: [id number] Low back pain 10/29/2017 Overview (03/07/2023): Overview Note: Low back pain #[id number]# EXT_ID: [id number] Chest pain 07/08/2017 Restless leg syndrome 06/12/2017 Overview (07/31/2022): Overview Note: Restless leg syndrome ## EXT_ID: [id number] Osteoarthrosis involving lower leg 06/12/2017 Overview (03/07/2023): Overview Note: Osteoarthritis of knees, bilat #[id number]# EXT_ID: [id number] Encounters Date Type Department Care Team Description 04/18/2025 Orders Only GENERIC EXTERNAL DATA DEPARTMENT Provider, Generic External Data 04/18/2025 Refill [facility] P[facility]S [address] [place] [address] Davina Marie MD 04/14/2025 1:00 PM EDT Office Visit [facility] [address] [place] [phone] Faith Wu MD Acute URI (Primary Dx); Sore throat; Acute cough; COPD exacerbation ([facility]) ([facility]) 04/14/2025 Results Follow-Up [facility] [address] [place] [phone] Faith Wu MD XR Chest 2 Views 04/14/2025 Telephone [facility] [address] [place] [phone] Faith Wu MD 04/14/2025 Travel 03/24/2025 Refill [facility] [address] [place] [address] Davina Marie MD Unspecified atrial fibrillation (CMS/HCC) ([facility]) 03/16/2025 10:15 AM EDT Telemedicine [facility] [address] [place] [address] Chandu Szymanski MD Abdominal bloating (Primary Dx) 03/15/2025 3:00 PM EDT Telemedicine [facility] [address] [place] [address] Faith Boston RN Abdominal bloating; Gastroesophageal reflux disease without esophagitis 03/04/2025 Orders Only GENERIC EXTERNAL DATA DEPARTMENT Provider, Generic External Data 02/22/2025 Refill [facility] [address] [facility] [place] [address] Davina Marie MD Unspecified atrial fibrillation (CMS/HCC) 02/20/2025 Orders Only GENERIC EXTERNAL DATA DEPARTMENT Provider, Generic External Data 01/24/2025 Refill [facility] [address] [facility] [place] [address] Davina Marie MD Unspecified atrial fibrillation (CMS/HCC) [...] your housing situation today? I have valentino sing 12/31/[address] you li [...] Hepatitis B Vaccines Completed 03/24/2024, 12/13/19 24 Pneumococcal Vaccine: 50+ Years Completed 12/21/2024, 12/30/2019 [...] Procedure Name Priority Date/Time Associated Diagnosis Comments MAGNESIUM Routine 04/18/2025 1:19 PM EST COMPREHENSIVE METABOLIC PANEL Routine 04/18/2025 1:19 PM EST CBC WITH AUTO DIFFERENTIAL Routine 04/18/2025 1:19 PM EST XR CHEST 2 VIEWS Routine 04/14/2025 2:00 [...] Recently Relevant to Health Maintenance Results * (ABNORMAL) CBC auto differential (04/18/2025 1:19 PM EST) Only the most recent of2 resultswithin the time period is included. White Blood Count 17.7(H) 4.8 - 10.8 X10*3/uL [facility] Red Blood Count 4.87 4.20 - 5.50 X10*6/uL [facility] Hemoglobin 14.0 12.0 - 16.0 g/dl [facility] Hematocrit 43.9 37.0 - 47.0 % [facility] Mean Corpuscular Volume 90.1 80.0 - 98.0 fL [facility] Mean Corpuscular Hemoglobin 28.7 27.0 - 33.0 pg [facility] Mean Corpuscular HGB Conc 31.9 31.0 - 35.0 g/dl [facility] Red Cell Distribution Width 14.5 11.0 - 16.0 % [facility] Platelet Count 465(H) 160 - 400 X10*3/uL [facility] Mean Platelet Volume 10.0 9.4 - 12.3 fL [facility] Neutrophils Percent Auto 69.8 45 - 73 % [facility] Imm Gran Pct Auto 0.3 0.0 - 0.4 % [facility] Lymphocytes Percent Auto 23.0 20 - 40 % [facility] Monocytes Percent Auto 5.1 2 - 11 % [facility] Eosinophils Percent Auto 1.4 0 - 4 % [facility] Basophils Percent Auto 0.4 0 - 2 % [facility] NRBC Pct Auto 0.0 0.0 - 0.2 /100WBC [facility] Neutrophils Absolute Auto 12.4(H) 2.0 - 8.3 x10*3/uL [facility] Imm Gran Abs Auto 0.06(H) 0.00 - 0.03 X10*3/uL [facility] Lymphocytes Absolute Auto 4.1 1.2 - 4.9 X10*3/uL [facility] Monocytes Absolute Auto 0.9 0.1 - 1.2 X10*3/uL [facility] Eosinophils Absolute Auto 0.3 0.0 - 0.4 X10*3/uL [facility] Basophils Absolute Auto 0.1 0.0 - 0.2 X10*3/uL [facility] NRBC Abs Auto 0.000 0.0 - 0.012 X10*3/uL [facility] 04/18/2025 1:19 PM EST 04/18/2025 1:22 PM EST us Generic External Data Provider LAB BLOOD ORDERAB LES Final Result [facility] [address] [place] [address] [phone] * Magnesium (04/18/2025 1:19 PM EST) Only the most recent of2 resultswithin the time period is included. Magnesium 2.1 1.6 - 2.6 mg/dL [facility] 04/18/2025 1:19 PM EST 04/18/2025 1:22 PM EST us Generic External Data Provider LAB BLOOD ORDERAB LES Final Result [facility] [address] [place] [phone] * (ABNORMAL) Comprehensive Metabolic Panel (04/18/2025 1:19 PM EST) Only the most recent of2 resultswithin the time period is included. Sodium 143 135 - 145 mmol/L [facility] Potassium 3.6 3.3 - 5.1 mmol/L [facility] Chloride 108 96 - 108 mmol/L [facility] Carbon Dioxide 28 22 - 29 mmol/L [facility] Anion Gap 11(L) 12 - 20 [facility] Urea Nitrogen (BUN) 20(H) 9 - 16 mg/dL [facility] Creatinine, Serum 0.80 0.5 - 1.4 mg/dL [facility] Creatinine Clr Calc Pharmacy 123.5 [facility] Comment:Provided height and weight: 175.26 cm,141.2 kg.eGFR (calculated from the MDRD study equation) and eCrCl(calculated from the Cockcroft-Gault equation) are based ondifferent parameters and may not yield comparable results.If eCrCl result is absurd, please check patient'sheight/weight. Estimated Glomerular Filt Rate >60 [facility] Comment:Chronic Kidney Disea se: Estimated GFR < 60 mL/min/1.64o5Sjbiyq Kidney Disease: Estimated GFR < 15 mL/min/1.73m2 Glucose 93 60 - 115 mg/dL [facility] Calcium 8.8 8.4 - 10.2 mg/dL [facility] Bilirubin, Total 0.3 0.0 - 1.0 mg/dL [facility] Aspartate Amino Transferase 38(H) 5 - 31 U/L [facility] Alanine Aminotransferase 39(H) 0 - 31 U/L [facility] Total Protein 8.1(H) 6.5 - 8.0 g/dL [facility] Albumin Level 4.7 3.5 - 5.0 g/dL [facility] Alkaline Phosphatase 149(H) 39 - 117 U/L [facility] 04/18/2025 1:19 PM EST 04/18/2025 1:22 PM EST us Generic External Data Provider LAB BLOOD ORDERAB LES Final Result [facility] [address] [place] [phone] * XR Chest 2 Views (04/14/2025 2:00 PM EDT) Only the most recent of2 resultswithin the time period is included. Anatomical Region Laterality Modality Chest Radiographic Shasta ging 04/14/2025 2:00 PM EDT Narrative 04/14/2025 2:10 PM EDT [address] [address] XRay Report Signed Patient: Tamanna Gutierrez MR#: [id number] : 1970 Acct:[id number] Age/Sex: 55 / F ADM Date: 04/14/25 Loc: HO.HHCX Attending Dr: Faith Wu MD Ordering Physician: Faith Wu MD Date of Service: 04/14/25 Procedure(s): XR chest 2V Accession Number(s): [id number] cc: Faith Wu MD Reason for Exam: [...] by Alba Bustamante MD in OV> 04/14/25 140 DD/ 1400 TD/TT: 04/14/251401 Pole Cutter: SANTI Procedure Note Donotuseinterpreter, Image - 04/14/2025 [facility] [address] [place] [address] XRay Report Signed Patient: Tamanna GutierrezMR#: [id number] : 1970Acct:[id number] Age/Sex: 55 / FADM Date: 04/14/25 Loc: .HHCX Attending Dr: Faith Wu MD Ordering Physician: Faith Wu MD Date of Service: 04/14/25 Procedure(s): XR chest 2V Accession Number(s): [id number] cc: Faith Wu MD Reason for Exam: [...] in OV> 04/14/25 1408 DD/ 1400 TD/TT: 04/14/251401 Pole Cutter: SANTI Faith Wu MD IMG XR PROCEDURES Final Re sult * POCT Rapid Influenza B LARRY ID NOW (04/14/2025 1:17 PM EDT) Influenza B Negative Negative, Indeterminate [facility] QC Media Lot # [id number] [facility] Lot# Expiration Date [facility] Swab 04/14/2025 1:17 PM EDT Faith Wu MD POINT OF CARE TEST ENTER/E DIT ORDERABLES Final Result Performing Organization Address [facility]/ZIP Co de Phone Number [facility] [address] [place] [phone] * POCT Rapid Influenza A LARRY ID NOW (04/14/2025 1:17 PM EDT) Influenza A Negative Negative, Indeterminate [facility] QC Media Lot # [id number] [facility] Lot# Expiration Date [facility] Swab 04/14/2025 1:17 PM EDT Faith Wu MD POINT OF CARE TEST ENTER/E DIT ORDERABLES Final Result Performing Organization Address [facility]/ZIP Co de Phone Number [facility] [address] [place] [phone] * POCT Rapid Covid-19 BinaxNOW (04/14/2025 [...] Negative, None Detected QC Media Lot # [id number] Lot# Expiration Date Swab 04/14/2025 1:15 PM EDT Faith Wu MD POINT OF CARE TEST ENTER/E DIT ORDERABLES Final Result * Influenza A B2 ID NOW (Larry) (03/04/2025 10:40 PM EDT) Only the most recent of2 resultswithin the time period is included. Pathologist [facility] IDNOW SERIAL# [id number] [facility] Influenza A Negative Negative [facility] Influenza B2 Negative Negative [facility] Influenza A B2 Note See Note [facility] Comment:The Larry ID NOW In [...] LAB MICROBIOLOGY - GENERAL ORDERABLES Final Result [facility] [address] [place] [phone] * COVID-19 ID NOW (LARRY) (03/04/2025 10:40 PM EDT) Only the most recent of2 resultswithin the time period is included. IDNOW SERIAL# [id number] [facility] COVID-19 TEST Negative Negative [facility] COVID-19 NOTE See Note [facility] Comment: Results are for the identification of SARS-CoV2 RNA. TheSARS-CoV2 RNA is generally detectable in respiratory samplesduring the acute phase of infection. Positive results areindicative of the presence of SARS-CoV-2 RNA; clinicalcorrelation with patient history and other diagnosticinformation is necessary to determine patient infectionstatus. Positive results do not rule out bacterial infectionor co- infection with other viruses.Testing facilities within the [facility] and itsterritories are required to report all [...] use by authorized laboratories.Testing performed on the LeadFire NOW utilizing NAAT. 03/04/2025 10:4 0 PM EDT 03/04/2025 10:44 PM EDT Generic External Data Provider LAB MOLECULAR CLEOPATRA GNOSTICS ORDERABLES Final Result Performing Organization Address [facility] Co de Phone Number [facility] [address] [place] [phone] * Lipase (03/04/2025 10:40 PM EDT) Lipase 8 8 - 78 U/L [facility] 03/04/2025 10:4 0 PM EDT 03/04/2025 10:44 PM EDT Generic External Data Provider LAB BLOOD ORDERAB LES Final Result Performing Organization Address [facility] Co de Phone Number [facility] [address] [place] [address] [phone] * XR Knee 4+ Views Bilateral (02/20/2025 3:13 PM EDT) Anatomical Region Laterality Modality Lower Extremities, Knee Bilateral [facility] 02/20/2025 3:13 PM EDT Narrative 02/20/2025 3:14 PM EDT [address] [address] XRay Report Signed Patient: Tamanna Gutierrez MR#: [id number] : 1970 Acct:[id number] Age/Sex: 54 / F ADM Date: 02/20/25 Loc: HO.ED Attending Dr: Ordering Physician: Feliz Garcia Date of Service: 02/20/25 Procedure(s): XR Knee Aldair 4V Accession Number(s): [id number] cc: Feliz Garcia; Davina Marie MD Reason [...] to the right and left knees. 2. Fwwv-ws-jwfbirkp tricompartment degenerative changes of the bilateral knees. [...] in OV> 02/20/251512 DD/ 12 TD/TT: 02/20/251512 Pole Cutter: Procedure Note Jannette, Image - 02/20/[address] [address] XRay Report Signed Patient: Tamanna GutierrezMR#: [id number] : 1970Acct:[id number] Age/Sex: 54 / FADM Date: 02/20/25 Loc: HO.ED Attending Dr: Ordering Physician: Feliz Garcia Date of Service: 02/20/25 Procedure(s): XR Knee Aldair 4V Accession Number(s): [id number] cc: Feliz Garcia; Davina Marie MD Reason [...] to the right and left knees. 2. Twtr-id-lecswsoo tricompartment degenerative changes of the bilateral knees. [...] Barton MD in OV> 02/20/25 1513 DD/ 1513 TD/TT: 02/20/25 1513 Pole Cutter: [facility] External Provider IMG XR PROCEDURES Edited Result - Final * XR Chest 1 View (02/20/2025 3:09 PM EDT) Anatomical Region Laterality Modality Chest Radiographic Shasta ging 02/20/2025 3:09 PM EDT Narrative 02/20/2025 3:11 PM EDT [address] [address] XRay Report Signed Patient: Tamanna Gutierrez MR#: [id number] : 1970 Acct:[id number] Age/Sex: 54 / F ADM Date: 02/20/25 Loc: .ED Attending Dr: Ordering Physician: Feliz Garcia Date of Service: 02/20/25 Procedure(s): XR chest 1V Accession Number(s): [id number] cc: Feliz Garcia; Davina Marie MD Reason [...] OV> 02/20/25 1510 DD/ 1509 TD/TT: 02/20/25 150 Pole Cutter: Procedure Note Donotserafininterpreter, Image - 02/20/[address] [address] XRay Report Signed Patient: Tamanna GutierrezMR#: [id number] : 1970Acct:[id number] Age/Sex: 54 / FADM Date: 02/20/25 Loc: HO.ED Attending Dr: Ordering Physician: Feliz Garcia Date of Service: 02/20/25 Procedure(s): XR chest 1V Accession Number(s): [id number] cc: Feliz Garcia; Davina Marie MD Reason [...] 02/20/25 1510 DD/ 1509 TD/TT: 02/20/25 1509 Pole Cutter: [facility] External Provider IMG XR PROCEDURES Edited Result - Final * (ABNORMAL) Lipid Panel, Standard (09/24/2023 10:04 AM EDT) Triglycerides 183(H) <150 mg/dL [facility] Comment:Desirable Triglyceri de: less than 150 mg/dLBorderline High Triglyceride 150-199 mg/dLHigh Triglyceride: 200-499 mg/dLVery High Triglyceride: greater than or equal to 5OO mg/dL Cholesterol 139 <200 mg/dL [facility] Comment:Desirable Cholestero l: less than 200 mg/dLBorderline High Cholesterol: 200-239 mg/dLHigh Cholesterol: greater than 239 mg/dL LDL Cholesterol Calculated 60 <100 mg/dL [facility] Comment:Desirable LDL: less than 100 mg/dLNear Optimal/Above Optimal LDL: 110- 129 mg/dLBorderline High LDL: 130-159 mg/dLHigh LDL: 160-189 mg/dLVery High LDL: greater than or equal to 190 mg/dL HDL Cholesterol 43 >40 mg/dL [facility] Comment:Desirable HDL: great er than 40 mg/dL Note: This HDL assay may give artificially low results in patients with liver disease. Blood Venous blood specimen / Unknown 09/24/2023 10:04 AM EDT 09/24/2023 2:32 PM EDT Davina Marie MD LAB BLOOD ORDERABLES Final Resul t Performing Organization Address [facility] Co de Phone Number [facility] [address] [place] [phone] * Hepatitis C Antibody with Reflex to HCV, RNA, Quantitative, Real-Time PCR (04/02/2023 8:28 AM EDT) [facility] Hepatitis C Antibody Nonreactive Nonreactive [facility] Comment:Antibodies to HCV no t detected; does not exclude early acuteHCV infection. Blood Venous blood specimen / Unknown 04/02/2023 8:28 AM EDT 04/02/2023 8:36 AM EDT Davina Marie MD LAB BLOOD ORDERABLES Final Resul t Performing Organization Address [facility] de Phone Number [facility] [address] [place] [phone] * HIV AB/AG (01/01/2021 10:40 AM EDT) Pathologist [facility] HIV AB/AG Nonreactive Nonreactive [facility] [...] of detection of this assay. The Larry Vehicle Delivery Worker HIV Ag/Ab Combo assay result and supplemental assay results should be interpreted in conjunction with the patient's clinical presentation, history and other laboratory results. If the results are inconsistent with clinical evidence, additional testing is suggested to confirm the result. 01/01/2021 10:4 0 AM EDT Ej lAlred MD HISTORICAL/NON ORDERAB LE LABS Final Result [facility] [address] * PAP/HPV (09/07/2020) Pap Smear 1. NILM 1. NILM HPV Not Detected Undetected, Indeterminat e, Quantitative , Not Detected Narrative Jo Mark - 09/07/2020 Results in care everywhere Historical Provider HEALTH MAINTENANCE Edited Result - Final from Last 3 Months or Most Recently Relevant to Health Maintenance Insurance [facility] Care Teams Case Picker Relationship Specialty Start Date End Date Sandra Neal CNP [address] [place] [phone] PCP - General Family Medicine 04/14/25
--- OUTSIDE RECORDS SUMMARY | 2025-04-18 17:36 | XMS_ITS | Clinical Summary ---
Author Organization [facility] Address [address] [place] [address] Phone Care Team Providers Care Mechanical Expert Name Role Phone Davina Marie MD Primary Care Provider [phone] Social History Tobacco Use Types Packs/Day Years Used Date Smoking Tobacco: Never Assessed Sex and Gender Information Value Date Recorded Sex Assigned at Not on file Legal Sex Male 2:32 PM EDT Gender Identity Not on file Sexual Orientation Not on file Plan of Treatment Not on file Medical Devices Not on file Insurance [employer] [address] [place] [address] C3 ACO C3 ACO C3 ACO C3 ACO C3 ACO C3 ACO C3 ACO C3 ACO Care Teams Mechanical Expert Relationship Specialty Start Date End Date Davina Marie MD [address] [place] [phone] PCP - General Family Medicine 02/01/21 Additional Source Comments The information contained in this document represents components of the legal health record. It is not the complete legal health record.[facility]
--- OUTSIDE RECORDS SUMMARY | 2025-04-18 17:36 | XMS_ITS | Encounter Summary ---
Author Organization [employer] Address [address] [place] [address] Care Team Providers Care Chainstitch Sewing Machine Operator Name Role Phone Sandra Neal CNP Primary Care Provider [phone] Reason for Visit * Reason Comments Med Refill Encounter Details Date Type Department Care Team ([facility] st Contact Info) Description 04/18/2025 Refill [facility] [address] [place], [place] [phone] Davina Marie MD [address] [place], [place] Social History Tobacco Use Types Packs/Day Years [...] documented as of this encounter Care Teams Chainstitch Sewing Machine Operator Relationship Specialty Start Date End Date Sandra Neal CNP [address] [place] [address] PCP - General Family Medicine 04/14/25 documented as of this encounter
--- OUTSIDE RECORDS SUMMARY | 2025-04-18 17:36 | XMS_ITS | Clinical Summary ---
Author Organization Formerly [facility] Address [address] [place] [address] Care Team Providers Care Radiation Safety Officer Name Role Phone Bradley Juan MD Unavailable [phone] Yusra Barton APRN Primary Care Provider [phone] Allergies No known active allergies Medications DULoxetine [...] Comment:Negative for intraep ithelial lesion or malignancy. Welt Cutter: [facility] Comment: MXD, CT (ASCP) CT screening location: [place] [address] Comment [facility] Comment: EXPLANATORY NOTE: [...] was performed using the APTIMA HPV Assay ([employer] This assay detects E6/E7 viral messenger RNA (mRNA) from 14 high-risk HPV types (16,18,31,33,35,39,45,51,52,56,58,59,66,68). The analytical performance characteristics of this assay have been determined by [email or web address] The modifications have not been cleared or approved by the FDA. This assay has been validated pursuant to the CLIA regulations and is used for clinical purposes. 10/14/2018 10:2 2 AM EDT 10/14/2018 10:04 PM EDT Narrative Resulting Agency Comment Performing Organization Information: Site ID: [id number] Name: [email or web address] Address: [address] [place] [address], [place] [address] Director: Antonio Jj MD Cristela Sanches MD LAB AMB PATH/CYTO ORDERABLES Final Result [email or web address] [address] [place] [address], [address] [place], [place] [id number] from Last 3 Months or Most Recently Relevant to Health Maintenance [facility] Advance Directives * Full Code (Latest Code Status on File) Date Activated Date Inactivated Comments 09/12/2018 1:53 AM * Full Code Date Activated Date Inactivated Comments 07/08/2017 11:14 PM 09/11/2018 3:55 PM Care Teams Radiation Safety Officer Relationship Specialty Start Date End Date Yusra Barton APRN [address] [place] [address] PCP - General Family Medicine 05/25/18 Braldey Juan MD [address] [place] [address] Physician Cardiovascular Disease 07/08/17
--- OUTSIDE RECORDS SUMMARY | 2025-04-18 17:36 | XMS_ITS | Encounter Summary ---
Author Organization [employer] Address [address] [place] [address] Care Team Providers Care Head Start Assistant Teacher Name Role Phone Davina Marie MD Primary Care Provider [phone] Sandra Neal CNP Primary Care Provider [phone] Encounter Details Date Type Department Care Team (Late st Contact Info) Description 07/31/2022 Orders Only [facility] [address] [place] [address] Davina Marie MD [address] [place], [place] [id number] Social History Tobacco Use Types Packs/Day Years [...] on filedocumented in this encounter Care Teams Head Start Assistant Teacher Relationship Specialty Start Date End Date Davina Marie MD [address] [place] [address] PCP - General Family Medicine 12/01/19 04/13/25 Sandra Neal CNP [address] [place] [address] PCP - General Family Medicine 04/14/25 documented as of this encounter
--- OUTSIDE RECORDS SUMMARY | 2025-04-18 17:36 | XMS_ITS | Encounter Summary ---
Author Organization [employer] Address [address] [place] [address] Care Team Providers Care Box Finisher Name Role Phone Sandra Neal CNP Primary Care Provider [phone] Encounter Details Date Type Department Care Team (Late st Contact Info) Description 04/18/2025 Orders Only GENERIC EXTERNAL DATA [...] Procedure Name Priority Date/Time Associated Diagnosis Comments CBC WITH AUTO DIFFERENTIAL Routine 04/18/2025 1:19 PM EST MAGNESIUM Routine 04/18/2025 1:19 PM EST COMPREHENSIVE METABOLIC PANEL Routine 04/18/2025 1:19 PM EST documented in this encounter Results * Magnesium (04/18/2025 1:19 PM EST) Magnesium 2.1 1.6 - 2.6 mg/dL [facility] 04/18/2025 1:19 PM EST 04/18/2025 1:22 PM EST us Generic External Data Provider LAB BLOOD ORDERAB LES Final Result [facility] [address] [place] [phone] * (ABNORMAL) Comprehensive Metabolic Panel (04/18/2025 1:19 PM EST) Sodium 143 135 - 145 mmol/L [facility] Potassium 3.6 3.3 - 5.1 mmol/L [facility] Chloride 108 96 - 108 mmol/L [facility] Carbon Dioxide 28 22 - 29 mmol/L [facility] Anion Gap 11(L) 12 - 20 [facility] Urea Nitrogen (BUN) 20(H) 9 - 16 mg/dL [facility] Creatinine, Serum 0.80 0.5 - 1.4 mg/dL [facility] Creatinine Clr Calc Pharmacy 123.5 [facility] Comment:Provided height and weight: 175.26 cm,141.2 kg.eGFR (calculated from the MDRD study equation) and eCrCl(calculated from the Cockcroft-Gault equation) are based ondifferent parameters and may not yield comparable results.If eCrCl result is absurd, please check patient'sheight/weight. Estimated Glomerular Filt Rate >60 [facility] Comment:Chronic Kidney Disea se: Estimated GFR < 60 mL/min/1.24p0Icxirl Kidney Disease: Estimated GFR < 15 mL/min/1.73m2 Glucose 93 60 - 115 mg/dL [facility] Calcium 8.8 8.4 - 10.2 mg/dL [facility] Bilirubin, Total 0.3 0.0 - 1.0 mg/dL [facility] Aspartate Amino Transferase 38(H) 5 - 31 U/L [facility] Alanine Aminotransferase 39(H) 0 - 31 U/L [facility] Total Protein 8.1(H) 6.5 - 8.0 g/dL [facility] Albumin Level 4.7 3.5 - 5.0 g/dL [facility] Alkaline Phosphatase 149(H) 39 - 117 U/L [facility] 04/18/2025 1:19 PM EST 04/18/2025 1:22 PM EST us Generic External Data Provider LAB BLOOD ORDERAB LES Final Result [facility] [address] [place] [address] [phone] * (ABNORMAL) CBC auto differential (04/18/2025 1:19 PM EST) White Blood Count 17.7(H) 4.8 - 10.8 X10*3/uL [facility] Red Blood Count 4.87 4.20 - 5.50 X10*6/uL [facility] Hemoglobin 14.0 12.0 - 16.0 g/dl [facility] Hematocrit 43.9 37.0 - 47.0 % [facility] Mean Corpuscular Volume 90.1 80.0 - 98.0 fL [facility] Mean Corpuscular Hemoglobin 28.7 27.0 - 33.0 pg [facility] Mean Corpuscular HGB Conc 31.9 31.0 - 35.0 g/dl [facility] Red Cell Distribution Width 14.5 11.0 - 16.0 % [facility] Platelet Count 465(H) 160 - 400 X10*3/uL [facility] Mean Platelet Volume 10.0 9.4 - 12.3 fL [facility] Neutrophils Percent Auto 69.8 45 - 73 % [facility] Imm Gran Pct Auto 0.3 0.0 - 0.4 % [facility] Lymphocytes Percent Auto 23.0 20 - 40 % [facility] Monocytes Percent Auto 5.1 2 - 11 % [facility] Eosinophils Percent Auto 1.4 0 - 4 % [facility] Basophils Percent Auto 0.4 0 - 2 % [facility] NRBC Pct Auto 0.0 0.0 - 0.2 /100WBC [facility] Neutrophils Absolute Auto 12.4(H) 2.0 - 8.3 x10*3/uL [facility] Imm Gran Abs Auto 0.06(H) 0.00 - 0.03 X10*3/uL [facility] Lymphocytes Absolute Auto 4.1 1.2 - 4.9 X10*3/uL [facility] Monocytes Absolute Auto 0.9 0.1 - 1.2 X10*3/uL [facility] Eosinophils Absolute Auto 0.3 0.0 - 0.4 X10*3/uL [facility] Basophils Absolute Auto 0.1 0.0 - 0.2 X10*3/uL [facility] NRBC Abs Auto 0.000 0.0 - 0.012 X10*3/uL [facility] 04/18/2025 1:19 PM EST 04/18/2025 1:22 PM EST us Generic External Data Provider LAB BLOOD ORDERAB LES Final Result [facility] [address] [place] [address] [phone] documented in this encounter Visit Diagnoses Not on filedocumented in this encounter Additional Health Concerns Assessment Noted Time PHQ-9 Depression Total Score: 11 024 9:53 AM EDT documented as of this encounter Care Teams Box Finisher Relationship Specialty Start Date End Date Sandra Neal CNP [address] [place] [address] PCP - General Family Medicine 04/14/25 documented as of this encounter
--- OUTSIDE RECORDS SUMMARY | 2025-04-18 17:36 | XMS_ITS | Encounter Summary ---
Author Organization [employer] Address [address] 7t [place] [address] Care Team Providers Care Embryology Teacher Name Role Phone Davina Marie MD Primary Care Provider [phone] Sandra Neal CNP Primary Care Provider [phone] Encounter Details Date Type Department Care Team ([facility] st Contact Info) Description 05/23/2022 Telephone C [facility] [address] [place], [place] [phone] Davina Marie MD [address] [place] [address] Social History Tobacco Use Types Packs/Day Years [...] on filedocumented in this encounter Care Teams Embryology Teacher Relationship Specialty Start Date End Date Davina Marie MD [address] [place] [address] PCP - General Family Medicine 12/01/19 04/13/25 Sandra Neal CNP [address] [place] [address] PCP - General Family Medicine 04/14/25 documented as of this encounter
--- OUTSIDE RECORDS SUMMARY | 2025-04-18 17:36 | XMS_ITS | Encounter Summary ---
Author Organization [employer] Address [address] [place] [address] Care Team Providers Care Broadcast Systems Engineer Name Role Phone Davina Marie MD Primary Care Provider Sandra Neal CNP Primary Care Provider [phone] Reason for Visit * Reason Comments Med Refill Encounter Details Date Type Department Care Team (Late st Contact Info) Description 11/23/2024 Refill [facility] [address] [place] [address] Davina Marie MD [address] [place] [address] Unspecified atrial fibrillation (CMS/HCC) Social History Tobacco [...] documented as of this encounter Care Teams Broadcast Systems Engineer Relationship Specialty Start Date End Date Davina Marie MD [address] [place] [address] PCP - General Family Medicine 12/01/19 04/13/25 Sandra Neal CNP [address] [place] [address] PCP - General Family Medicine 04/14/25 documented as of this encounter
--- OUTSIDE RECORDS SUMMARY | 2025-04-18 17:36 | XMS_ITS | Encounter Summary ---
Author Organization [email or web address] Address [address] [place] [address] [address] [place] [address] Care Team Providers Care Register Clerk Name Role Phone Davina Marie MD Primary Care Provider [phone] Sandra Neal CNP Primary Care Provider [phone] Reason for Visit * Reason Comments Med Refill Encounter Details Date Type Department Care Team (Late st Contact Info) Description 07/03/2022 Refill [facility] [address] [place] [address] Davina Marie MD [address] [place] [address] Anemia, unspecified type Social History Tobacco Use [...] type documented in this encounter Care Teams Register Clerk Relationship Specialty Start Date End Date Davina Marie MD [address] [place] [address] PCP - General Family Medicine 12/01/19 04/13/25 Sandra Neal CNP [address] [place] [address] PCP - General Family Medicine 04/14/25 documented as of this encounter
--- OUTSIDE RECORDS SUMMARY | 2025-04-18 17:36 | XMS_ITS | Clinical Summary ---
Author Organization [facility] Address [address] [place] [address] Care Team Providers Care Secretarial Stenographer Name Role Phone Unavailable Primary Care Provider [...] Migraine 08/13/2018 Overview (08/12/2019): Overview Note: Migraine #[id number]# EXT_ID: [id number] Low back pain 10/29/2017 Overview (08/12/2019): Overview Note: Low back pain #[id number]# EXT_ID: [id number] Restless leg syndrome 06/12/2017 Overview (08/12/2019): Overview Note: Restless leg syndrome #[id number]# EXT_ID: [id number] Osteoarthritis of knees, bilateral 06/12/2017 Overview (08/12/2019): Overview Note: Osteoarthritis of knees, bilat #[id number]# EXT_ID: [id number] Knee arthropathy 06/12/2017 Overview (08/12/2019): Overview Note: Knee arthropathy #[id number]# EXT_ID: [id number] Hypertension 01/23/2017 Overview (08/12/2019): Overview Note: Hypertension #[id number]# EXT_ID: [id number] Immunizations Immunization Administration Dates Next Due INFLUENZA, [...] 09/23/2018 6:12 PM EDT Temperature 37.3 C ([id number] F) 09/23/2018 6:12 PM EDT Respiratory Rate [...]
--- OUTSIDE RECORDS SUMMARY | 2025-04-18 17:36 | XMS_ITS | Encounter Summary ---
Author Organization [employer] Address [address] [facility] [address]t [place] [address] Care Team Providers Care Senior Product Development Manager Name Role Phone Davina Marie MD Primary Care Provider [phone] Sandra Neal CNP Primary Care Provider [phone] Encounter Details Date Type Department Care Team (Late st Contact Info) Description 07/30/2022 Orders Only [facility] [address] [place] [address] Oumou Carney LPN Social History Tobacco Use [...] filedocumented in this encounter Care Teams Senior Product Development Manager Relationship Specialty Start Date End Date Davina Marie MD [address] [place] [address] PCP - General Family Medicine 12/01/19 04/13/25 Sandra Neal CNP [address] [place] [address] PCP - General Family Medicine 04/14/25 documented as of this encounter
--- OUTSIDE RECORDS SUMMARY | 2025-04-18 17:36 | XMS_ITS | Encounter Summary ---
Author Organization [employer] Address [address] [place] [address] Care Team Providers Care Data Processing Clerk Name Role Phone Davina Marie MD Primary Care Provider [phone] Sandra Neal CNP Primary Care Provider [phone] Reason for Visit * Reason Comments Med Refill Encounter Details Date Type Department Care Team (Late st Contact Info) Description 10/23/2023 Refill [facility] [address] [place] [address] Davina Marie MD [address] [place] [address] Social History Tobacco Use Types Packs/Day Years [...] documented as of this encounter Care Teams Data Processing Clerk Relationship Specialty Start Date End Date Davina Marie MD [address] [place] [address] PCP - General Family Medicine 12/01/19 04/13/25 Sandra Neal CNP [address] [place] [address] PCP - General Family Medicine 04/14/25 documented as of this encounter
--- NOTE | 2025-04-18 19:26 | PC.NURSE ---
Patient is a difficult IV stick. JUDY Ardon at bedside attempting to obtain IV access with ultrasound guidance. Primary RN Julia aware.
--- NOTE | 2025-04-18 20:06 | PC.NURSE ---
JUDY Ordoñez obtained IV access to left AC. Medicated per provider orders. Care ongoing.
[2025-04-18 20:20] VITALS: BP 147/73; PULSE 83; RESP 20; TEMP 37.1; O2SAT 97
--- NOTE | 2025-04-18 20:25 | PC.NURSE ---
Pt reports nausea and pain not resolved by meds, made aware, new meds ordered
[2025-04-18] MEDS: diazePAM 10 MG/2 ML CARTRIDGE 2.5 MG IVPUSH (20:32)
[2025-04-18 21:06] VITALS: BP 137/82; PULSE 86; RESP 18; TEMP 36.6; O2SAT 98
[2025-04-18 21:11] VITALS: BP 137/82; PULSE 86; RESP 18; TEMP 36.6; O2SAT 98
== END 2025-04-18 21:13 | disposition home or self-care (01) ==
PROVIDERS: Physician Assistant Medical; Emergency Provider Emergency Medicine; PCP Student in an Organized Health Care Education/Training Program
DX: J44.1 Chronic obstructive pulmonary disease with (acute) exacerbation (principal); R05.9 Cough, unspecified; R06.02 Shortness of breath; R11.2 Nausea with vomiting, unspecified; J44.9 Chronic obstructive pulmonary disease, unspecified; I10 Essential (primary) hypertension; R10.9 Unspecified abdominal pain
CPT/HCPCS: 36415; 80053; 83735; 85025; 96361; 96374; 96375; 99285; J2405; J3360

== ENCOUNTER 2025-04-21 08:14 | Outpatient (AMB) | payer MEDICARE, MEDICAID, SELFPAY ==
[2025-04-21 08:36] VITALS: BP 120/64; PULSE 58; BMI 46.8
--- NOTE | 2025-04-21 08:36 | A.OFFVIS_ITS ---
Vital Signs 04/21/25 08:36 Height 5 ft 9 in Weight 317 lb BMI 46.8 BP 120/64 Blood Pressure Location Lt brachial Position Sitting Pulse 58 Pulse Source Pulse Oximeter Intake Visit Reasons: Medication F/U-Confirmed Intake Note: Patient presents 3 month follow up for migraines/seizure Auto Wrecker Required: No Accompanied by: Self / Same As Patient Allergies bacitracin Allergy (Mild, Verified 04/21/25 08:42) Rash ibuprofen Allergy (Verified 04/21/25 08:42) Unknown lisinopril Allergy (Verified 04/21/25 08:42) Unknown aspirin Adverse Reaction (Mild, Verified 04/21/25 08:42) mild vaginal bleeding Medication List - Last Reconciled 04/21/25 by EVONNE Adkins albuterol sulfate 2.5 mg inhalation Q4H PRN albuterol sulfate 90 mcg/actuation 2 puffs inhalation Q4-6H PRN amlodipine 5 mg PO DAILY apixaban (Eliquis) 5 mg PO BID ascorbic acid (vitamin C) ER 500 mg PO DAILY azithromycin For 250 mg dose pack: take 500 mg today (day 1), then 250 mg for 4 days (days 2-5) cetirizine 10 mg PO BEDTIME clonidine HCl 0.1 mg PO BID cyanocobalamin (vitamin B-12) (Vitamin B-12) 500 mcg PO DAILY dicyclomine 20 mg PO BID PRN docusate sodium 100 mg PO BID duloxetine 30 mg PO BEDTIME erenumab-aooe (Aimovig Autoinjector) 140 mg subcut Q30D 30 days ergocalciferol (vitamin D2) 1,250 mcg PO FR@0900 ferrous sulfate 325 mg PO DAILY fluticasone propion-salmeterol 230-21 mcg/actuation (Advair HFA) 2 puffs inhalation BID furosemide 20 mg PO BID gabapentin 300 mg PO BID 30 days losartan 100 mg PO DAILY magnesium oxide 400 mg PO BEDTIME 90 days metoprolol tartrate 50 mg PO BID montelukast 10 mg PO BEDTIME multivit-iron sulf-folic acid 15 mg iron- 400 mcg (Tab-A-Bing Multivitamin w- iron) 1 tab PO BEDTIME naloxone 4 mg/actuation 4 mg intranasal Q2M PRN 1 day omeprazole 40 mg PO BID ondansetron 4 mg PO Q8H PRN ondansetron 4 mg PO Q8H PRN prednisone 40 mg (2 x 20 mg) PO DAILY 5 days pyridoxine (vitamin B6) 50 mg PO BID 30 days riboflavin (vitamin B2) 400 mg PO DAILY 90 days rimegepant (Nurtec ODT) 75 mg PO DAILY PRN 30 days MDD 1 tab rosuvastatin 20 mg PO DAILY sucralfate (Carafate) 10 mL PO QID PRN tirzepatide (weight loss) (Zepbound) 2.5 mg subcut FR@1000 topiramate 50 mg (2 x 25 mg) PO DAILY 30 days topiramate 100 mg PO BEDTIME 30 days HPI Comments Details: 54-yr-old female presents for f/u visit for seizures and migraine. Pt is accompanied by her dtr, Bruce Snell. Interval 72 hr EEG showed only generalized slowing, but no epileptic activity. Patient reports overall she is feeling a little better However, today, patient reports she is quite concerned that she was able to palpate a hemorrhoid, and she has had signs of rectal bleeding. She endorses that she is very hesitant to touch the hemorrhoid. She is having an every day mild-moderate migraine and a more severe migraine attack once a week (30/30 migraine headache days in the last month). The headache control is better, but the severe attacks are disabling. She started the Nurtec ODT 75mg as needed, which 'controls the itch . She also started Aimovig which she is tolerating well. Typical headache characteristics: Prodrome symptoms: unsure Aura: unsure Pain, Location, quality, characteristics: Severe, left sided temporal pulsating pain a/w swelling, photophobia, phonophobia, osmophobia, allodynia, nausea, vomiting- sometimes, internal spinning dizziness, lightheadedness, fatigue, cognitive difficulties, activity intolerance, upper frontal numbness, LUE tingling, red eye- likes veins have popped, watery eye, facial warmth. Postdrome: drained She states her seizure activity has also lessened. Now she can feel it coming on but the full seizure activity come. Typical seizure episode: she will feel it come on, her eyes will roll back, and sometimes she can can shake it off . This lasts a few seconds, and the full seizure occur in a pattern of 3-4 back to back attacks, her dtr tries to encourage her to breathe but pt is not responding to her. When episode ends, she looks very confused. Sometimes both of these symptoms can be triggered by stress. She is compliant with her CPAP. Pt's meds are dispensed by her dtr from a prefilled med box. Previous workup: 07/02/24, CT/CT head/brain wo IV con: No acute intracranial abnormality. [facility] Medical History Arthritis Peptic ulcer GERD (gastroesophageal reflux disease) CVA (cerebral vascular accident) SOB (shortness of breath) Atrial fibrillation Seizure On beta christina at home On anticoagulant therapy SANDEE (obstructive sleep apnea) Morbid obesity with BMI of 45.0-49.9, adult Gout High cholesterol Hypertension COVID-19 Osteoarthritis of knees, bilateral History of gastric ulcer Left inguinal hernia (~2013) Lab test positive for detection of COVID-19 virus (~11/2019) Bleeding disorder Asthma Surgical History History of back surgery S/P partial hysterectomy (11/10/18) H/O umbilical hernia repair (07/25/06) Hx of endoscopy Family History Father Hx of diabetes insipidus Mother No problems noted. Social History Household Members: [facility] Are you a primary healthcare customer service to a significant other at home: No Do you presently have visiting nurse or other home services: No Alcohol intake: never Comment: counts correct Patient Tobacco Use Status: Never used Tobacco e-Cigarette/Vaping Use: Never Used Second Hand Smoke Exposure: No Advance Directives Date on File: 01/24/21 service: No Current occupational status: unemployed Current occupation: right handed Physical Exam Vital Signs: Last Vital Signs Pulse 58 04/21/25 08:36 BP 120/64 04/21/25 08:36 BMI result Body Mass Index 46.8 Const General: cooperative and no acute distress Resp Effort & Inspection: normal respiratory effort and able to speak in complete sentences Neuro Other: A&O w/ improved STM lapses r/t medication names, medical hx. General: gait normal and CN's II-XI intact bilaterally Cognition (Neuro): normal cognition Motor exam (neuro): 5/5 motor strength present throughout Psych Appearance: grossly normal Mental Status: mental status grossly normal Speech and movement: Normal speech and movement present Affect: normal affect Attitude: cooperative Thought process: Normal thought process present Thought content: Normal thought content present Insight: Good insight present (Psych) Judgement: Good judgement present (Psych) Telehealth Telehealth Telehealth Platform: cottonTracks Location of provider rendering services: practice address Location of patient: address on file Patient Identification confirmed using: Name, : Yes Telehealth method: video Patient verbally consented to treatment: Yes Patient verbally consented to billing insurance company: Yes Patient informed of any privacy concerns related to visit: Yes Minutes spent on Phone/Video with Pt.: 30 Assessment & Plan Assessment & Plan (1) Seizure: Code(s): R56.9 - Unspecified convulsions Category: Medical (2) Paresthesia: Code(s): R20.2 - Paresthesia of skin Category: Medical (3) Migraine with aura: Comment: ? LUE tingling is migraine sensory aura Code(s): G43.109 - Migraine with aura, not intractable, without status migrainosus Category: Medical Qualifiers: Intractability: intractable Status migrainosus presence: with status migrainosus Qualified Code(s): G43.111 - Migraine with aura, intractable, with status migrainosus (4) Rectal bleeding: Code(s): K62.5 - Hemorrhage of anus and rectum Category: Medical (5) External hemorrhoid: Code(s): K64.4 - Residual hemorrhoidal skin tags Category: Medical Plan As patient is very concerned about the hemorrhoid associated with indications of rectal bleeding, we will request a GI consult. For convulsions: Reviewed interval 72 hour EEG: * Again only showed mild slowing, which may be medication effects Previous workup: * EEG- mild slowing- no evidence of epileptic activity. * Head CT w/o- unremarkable Current plan: * Continue gabapentin 300 mg twice a day * Continue to use CPAP nightly > 4 hrs. Future considerations: * VEEG, referral to [facility]. For overall headache management: * Discussed importance of good self-care, including but not limited to maintaining a healthy diet, adequate fluid intake, adequate sleep, and engaging in regular physical activity. * Track headaches. * Information previously shared on nonpharmacological treatment interventions including strategies to minimize photophobia and phonophobia. For acute migraine tx: * Continue Tylenol 650-a 1000 mg every 4-6 hours as needed at onset of migraine headache. * Continue Rimegepant ODT (Nurtec ODT) 75mg, 1 tab at onset of headache. Max of 1 tabs (75mg) per 24 hours. * May adjunct with OTC Tylenol 650-1000 mg every 4-6 hours as needed. * Start prochlorperazine 5-10 mg every 8 hours as needed for headache pain as well as nausea and vomiting * Previous acute tx trials- none other * Tx contraindications- all Triptans and DHE d/t CAD. NSAIDs d/t Eliquis use and ASA allergy. For migraine prevention tx: * Continue Riboflavin 400mg daily in am * Continue Magnesium 400mg daily at bedtime. * Discontinue Topiramate 50mg in am and 100mg at bedtime * Start topiramate 100 mg twice a day- we will discontinue this, if there are any indications of nephrolithiasis recurrence * Continue vitamin B6 50 mg twice a day. * Check B6 level at follow-up appointment * Continue metoprolol 50 mg twice a day- order primarily for hypertension * Continue Aimovig 140mg/ml autoinjector, 1ml (140mg) subcutaneous injection once a month, as patient has had a significant reduction in monthly migraine severity, as her severe migraine attacks have decreased migraine than 50%. * Previous prevention tx trials- none other * Tx contraindications- would not increase metoprolol or add alternate beta- christina d/t symptomatic asthma. f/u upon review of above and in clinic in 3-6 months or sooner prn. Orders: Referrals Gastroenterology Referral K62.5 - Hemorrhage of anus and rectum, K64.4 - Residual hemorrhoidal skin tags Medications: New prochlorperazine maleate (Compazine) 5 - 10 mg (1 - 2 x 5 mg) PO Q8H PRN 30 tabs 1RF nausea and vomiting and migraine 30 days Changed From topiramate 100 mg PO BEDTIME 30 days 30 tabs 6RF To topiramate 100 mg PO BID 60 tabs 6RF 30 days Discontinued topiramate continues topiramate 100mg qhs Discontinued Reason: Doctor's Order 50 mg (2 x 25 mg) PO DAILY 30 days 60 tabs 6RF G43.109 - Migraine with aura, not intractable, without status migrainosus Coding Level of Care Code Complex visit Add On G2211 Diagnoses Seizure R56.9 Paresthesia R20.2 Intractable migraine with aura with status migrainosus G43.111 Intractability: intractable Status migrainosus presence: with status migrainosus Rectal bleeding K62.5 External hemorrhoid K64.4
== END 2025-04-21 09:49 | disposition home or self-care (01) ==
LOC: HO.HSMS 08:14
PROVIDERS: PCP Student in an Organized Health Care Education/Training Program; Visit Provider Nurse Practitioner Family
DX: R56.9 Unspecified convulsions (principal); R20.2 Paresthesia of skin; G43.111 Migraine with aura, intractable, with status migrainosus; K62.5 Hemorrhage of anus and rectum; K64.4 Residual hemorrhoidal skin tags
CPT/HCPCS: 99214; G2211

== ENCOUNTER 2025-05-26 08:09 | Outpatient (AMB) | payer MEDICARE, MEDICAID, SELFPAY ==
[2025-05-26 08:31] VITALS: BP 192/92; PULSE 69; RESP 16; O2SAT 93; BMI 47.0
--- NOTE | 2025-05-26 08:31 | A.OFFVIS_ITS ---
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 I did the injection for her. She trigger point injection as below. She also complains on axial lower back pain without radiation into bilateral lower extremities. In the past we successful performed diagnostic and therapeutic medial branch blocks L3-L4 dorsal ramus L5 bilateral with great pain relief. Insurance company denied bilateral therapeutic medial branch blocks L3-L4 L5 which were previously done for the patient 8 times with great results with removal of the pain for 3-4 months on 80-90%. Last time In May of 2024 she received bilateral therapeutic medial branch block injection with very good results lasting 4. months. Prior: History of chronic back pain. evere pain in bilateral lower back as well as severe pain in thoracic back slightly above the level of the scapulas approximately in bilateral rhomboid muscles projection. She states that both of the spinal cord stimulators do not cover her pain. Previously I was entertaining an idea that the pain of the patient is secondary to deviation of the spinal cord stimulator epidural leads. However today it appears to be that pain is not radicular and rather local in nature. She also states that the pain is not covered by spinal cord stimulator which would be the case if pain would be radicular. The spinal cord stimulator is positioned in proper location in the posterior cervical spine in the projection of C2-C3 C3-C4 vertebra and there are no observable deviation of the epidural leads on the the anterior posterior view in the thoracic or cervical spine. She requests me to perform therapeutic medial branch blocks for her lower lumbar pain as well as for her thoracic spine pain. She stated that therapeutic blocks which were performed for her in the past were more or less helpful for her. I explained to her risk of the steroid medications. I explained to her risks of diabetes and osteoporosis. Nevertheless the patient insisted on performing those injections. I told her to turn the spinal cord stimulator lumbar off before she would go for the L3-L4 dorsal ramus L5 bilateral therapeutic medial branch block and the same should be done for cervical spinal cord stimulator when she will go for thoracic medial branch blocks. I also will contact [facility] and we will request there opinion on whether [facility] would be acceptable way of treating Nolen's pain in presence of spinal cord stimulators in her spine. Prior: bilateral acromioclavicular joint injection which was performed on 06/03/2023.. She reports overall 50% of pain improvement in the shoulders. She reports slightly improved mobility of the left upper extremity. However he continues to complain on swelling and pain in bilateral upper shoulders. She is interested in neuromodulation. She is asking me whether she can try the same stimulation in her neck to help her pain in his shoulders as she did for her back. Complains on cervical pain with radiation to the left upper extremity or left side of the thoracic back and even down to the left loin. She also reports associated weakness in the left upper extremity and awkwardness of left upper extremity. She is a subject of multiple interventional procedures. She recently had implantation of spinal cord stimulator to treat her lower back pain. She still reports 80% of pain improvement on spinal cord stimulator. On background of improved lower back pain the thoracic and cervical pain comes to foreground. She was a subject of x-ray of the cervical spine results of which dictated as below. [facility] Medical History Arthritis Peptic ulcer GERD (gastroesophageal reflux disease) CVA (cerebral vascular accident) SOB (shortness of breath) Atrial fibrillation Seizure On beta christina at home On anticoagulant therapy SANDEE (obstructive sleep apnea) Morbid obesity with BMI of 45.0-49.9, adult Gout High cholesterol Hypertension COVID-19 Osteoarthritis of knees, bilateral History of gastric ulcer Left inguinal hernia (~2013) Lab test positive for detection of COVID-19 virus (~11/2019) Bleeding disorder Asthma Surgical History History of back surgery S/P partial hysterectomy (11/10/18) H/O umbilical hernia repair (07/25/06) Hx of endoscopy Family History Father Hx of diabetes insipidus Mother No problems noted. Social History Household Members: Family Housing: Condominium Are you a primary animal care specialist to a significant other at home: No Do you presently have visiting nurse or other home services: No Alcohol intake: never Comment: counts correct Patient Tobacco Use Status: Never used Tobacco e-Cigarette/Vaping Use: Never Used Second Hand Smoke Exposure: No Advance Directives Date on File: 01/24/21 service: No Current occupational status: unemployed Current occupation: right handed Review of Systems Const All systems reviewed & are unremarkable except as noted in HPI and below Physical Exam Vital Signs: Last Vital Signs Pulse 69 05/26/25 08:31 Resp 16 05/26/25 08:31 BP 192/92 H 05/26/25 08:31 Pulse Ox 93 05/26/25 08:31 Oxygen Delivery Method Room Air 05/26/25 08:31 BMI result Body Mass Index 47.0 Const General: no acute distress and alert Nutritional Appearance: not obese Orientation/consciousness: Other orientation findings ( oriented) HEENT Head: Yes atraumatic Eyes General: appearance normal, both eyes and all related structures Sclerae: sclerae normal EOM: EOMs intact bilaterally Neck Other: There is tenderness on palpation in the projection of the rhomboid minor and rhomboid major muscle bilaterally. Neck: No full ROM Resp Effort & Inspection: normal respiratory effort and no use of accessory muscles Back/Spine/Pelvis Other: There is tenderness on palpation in the projection of the lower back paraspinal spinal regions. Loading test is positive bilaterally. Valsalva is negative for pain increase. Brad test is negative bilaterally. Flexing backwards aggravates pain more than flexing forward. There is no radiation of the pain into bilateral lower extremities. Skin General skin exam: other ( warm) Extrem General: No clubbing, No cyanosis and No edema Psych Appearance: grossly normal Mental Status: mental status grossly normal Speech and movement: Normal speech and movement present Affect: normal affect Attitude: cooperative Thought process: Normal thought process present Thought content: Normal thought content present Insight: Good insight present (Psych) Judgement: Good judgement present (Psych) Assessment & Plan Assessment & Plan (1) Bilateral knee pain: Code(s): M25.561 - Pain in right knee; M25.562 - Pain in left knee Category: Medical Qualifiers: Chronicity: chronic Qualified Code(s): M25.561 - Pain in right knee; M25.562 - Pain in left knee; G89.29 - Other chronic pain (2) Spondylosis of lumbar joint: Code(s): M47.816 - Spondylosis without myelopathy or radiculopathy, lumbar region Category: Medical (3) Spondylosis, thoracic, without myelopathy: Code(s): M47.814 - Spondylosis without myelopathy or radiculopathy, thoracic region Category: Medical (4) Spinal cord stimulator status: Code(s): Z96.89 - Presence of other specified functional implants Category: Medical (5) Arthritis of both acromioclavicular joints: Code(s): M19.011 - Primary osteoarthritis, right shoulder; M19.012 - Primary osteoarthritis, left shoulder Category: Medical (6) DDD (degenerative disc disease), cervical: Code(s): M50.30 - Other cervical disc degeneration, unspecified cervical region Category: Medical (7) Cervical spondylosis: Code(s): M47.812 - Spondylosis without myelopathy or radiculopathy, cervical region Category: Medical Plan: Bilateral trigger point injections: After obtaining informed consent patient was positioned sitting on the examination bed. The most tender area of bilateral upper shoulders were prepped with ChloraPrep. Sterilely obtained ropivacaine 0.5% 10 mL was mixed with Kenalog 40 mg and then it was injected bilaterally into most painful area in fan-like fashion. No side effects were observed. No immediate complications were observed. Patient tolerated the procedure well. The needles were withdrawn sterile Band-Aid was applied. (8) Status post insertion of spinal cord stimulator: Code(s): Z96.89 - Presence of other specified functional implants Category: Surgical (9) Painful rib: Code(s): R07.81 - Pleurodynia Category: Medical Plan In the past patient received 8 medial branch blocks L3, L4, L5 bilateral therapeutic. She reported 3-4 months of 90% pain improvement after each procedure. Unfortunately her insurance company denied this procedure based on discrepancy and documentation. However it is clearly stated in my physical exam that patient does not have pain radiating into bilateral lower extremities with positive loading test and positive palpation of the lower back. Have peer to peer discussion with her insurance company. Coding Level of Care Code Est Pt Level 3 (41959) Procedure Only Diagnoses Bilateral knee pain M25.561; M25.562; G89.29 Chronicity: chronic Spondylosis of lumbar joint M47.816 Spondylosis, thoracic, without myelopathy M47.814 Spinal cord stimulator status Z96.89 Arthritis of both acromioclavicular joints M19.011; M19.012 DDD (degenerative disc disease), cervical M50.30 Cervical spondylosis M47.812 Status post insertion of spinal cord stimulator Z96.89 Painful rib R07.81
== END 2025-05-26 09:15 | disposition home or self-care (01) ==
LOC: HO.PMC 08:10
PROVIDERS: PCP Student in an Organized Health Care Education/Training Program; Visit Provider Anesthesiology
DX: M25.561 Pain in right knee (principal); M25.562 Pain in left knee; G89.29 Other chronic pain; M47.816 Spondylosis without myelopathy or radiculopathy, lumbar region; M47.814 Spondylosis without myelopathy or radiculopathy, thoracic region; Z96.89 Presence of other specified functional implants; M19.011 Primary osteoarthritis, right shoulder; M19.012 Primary osteoarthritis, left shoulder; M50.30 Other cervical disc degeneration, unspecified cervical region; M47.812 Spondylosis without myelopathy or radiculopathy, cervical region; R07.81 Pleurodynia
CPT/HCPCS: 20552; 99213

== ENCOUNTER → 2025-05-26 08:09 | Outpatient (BNVA) | payer MEDICARE, MEDICAID, SELFPAY | PROVIDERS: PCP Student in an Organized Health Care Education/Training Program; Visit Provider Anesthesiology | DX: M47.812 Spondylosis without myelopathy or radiculopathy, cervical region (principal); M50.30 Other cervical disc degeneration, unspecified cervical region; M19.011 Primary osteoarthritis, right shoulder; M19.012 Primary osteoarthritis, left shoulder; M47.814 Spondylosis without myelopathy or radiculopathy, thoracic region; M47.816 Spondylosis without myelopathy or radiculopathy, lumbar region; M25.561 Pain in right knee; M25.562 Pain in left knee; G89.29 Other chronic pain; R07.81 Pleurodynia; Z96.89 Presence of other specified functional implants | CPT/HCPCS: 20552; 99212 ==